=== PATIENT | female | born 1950 | race Caucasian/White ===

== ENCOUNTER 2023-08-26 14:05 | Outpatient (OUT) | payer MEDICARE, SELFPAY | END 2023-08-26 14:06 | disposition home or self-care (01) | PROVIDERS: PCP Internal Medicine; Visit Provider Surgery | DX: R19.7 Diarrhea, unspecified (principal); C18.9 Malignant neoplasm of colon, unspecified; C78.7 Secondary malignant neoplasm of liver and intrahepatic bile duct ==

== ENCOUNTER 2023-09-04 06:42 | Day surgery (SDC) | payer MEDICARE, OTHER, SELFPAY ==
--- OUTSIDE RECORDS SUMMARY | 2023-09-04 06:48 | XMS_ITS | CCD ---
Author Name Unknown Address [address] [place] [address] Organization [facility] Care Team Providers Care Concessions Manager Name Role Phone Deepthi, Nupur S Primary Care Physician Unavaila marilou Choudharyeder, Patrice Schwartz Unavailable Unavailable Zachary, Luciana Primary Care Physician Unavaila marilou Suarez, Patrice Schwartz Primary Care Physician Reuben lable Schworm, Nupur S Primary Care Physician Unavaila ble Schworm, [facility] S Primary Care Physician Unavaila ble Zachary, Luciana Primary Care Physician Unavaila marilou Suarez, Patrice Schwartz Primary Care Physician Reuben Suarez, Patrice Schwartz Primary Care Physician Reuben montenegro Schworm, [facility] S Primary Care Physician Unavaila ble Schworm, [facility] S Primary Care Physician Unavaila ble Schworm, [facility] S Primary Care Physician Unavaila ble Schworm, [facility] S Primary Care Physician Unavaila ble Suarez, Patrice Schwartz Primary Care Physician Patrice Orellana Unavailable Unavailable Schworm, [facility] S Primary Care Physician Unavaila ble Schworm, Nupur S Primary Care Physician Unavaila marilou Suarez, Patrice Schwartz Primary Care Physician Anatoliy Hdz Primary Care Provider [phone] ANATOLIY MCKEON Primary Care Unavailable EYAL SANCHEZ Admitting Unavailable EYAL SANCHEZ Attending Unavailable Patrice Suarez Primary Care Physician Bebeto Collins Primary Care Physician Bebeto Collins Primary Care Physician Reuben SEVILLA, DR CHINEDU Carolian Attending Katy SEVILLA, DR CHINEDU [place] [employer] Unavailnadeem SEVILLA, DR CHINEDU [place] Admitting Unavailnadeem MCKEON, DR ANATOLIY Sánchez Primary Care Unavailable Bebeto Miles Primary Care Physician Patrice Orellana Primary Care Physician Bebeto Collins Primary Care Physician Patrice Orellana Primary Care Physician Gloria Corrales Unavailable Patrice Suarez Primary Care Physician ALEXANDRE Tracey Attending Unavailable ANATOLIY MCKEON Referring Unavailable ANATOLIY MCKEON Primary Care Unavailable PAULETTE VOSS Referring Unavailable ANATOLIY MCKEON Primary Care Unavailable Allergies Allergy Classification Reported Allergen(s) Allergy Type Date of Onset Reaction(s) Facility HMG-CoA Reductase Inhibitors (statins) (1 source) Hmg-Coa Reductase Inhibitors (Statins) Drug Allergy myalgias, jaw tightens [facility] Comment on above: has taken simvastati n and atorvastatin Latex (1 source) Latex Substance Allergy [facility] (20 sources) Hmg-Coa Reductase Inhibitors (Statins); Translations: [[id number] REDUCTASE INHIBITORS] Allergy to substance (disorder) 3 myalgias, jaw tightens [facility] Comment on above: has taken simvastati n and atorvastatin (20 sources) Latex; Translations: [latex] Allergy to substance (disorder) 9 Rash [facility] (1 source) Desonide Drug Allergy [facility] Rep[facility] (2 sources) ADHESIVE TAPE-SILICONES; Translations: [ADHESIVE TAPE-SILICONES] Propensity to adverse reactions to drug (disorder) 7 [facility] Medications Current Medications Medication Drug Class(es) Dates Sig (Normalized) Sig (Original) b complex vitamins capsule (1 source) take 1 capsule by mouth at bedtime b complex vitamins capsule Take 1 capsule by mouth in the morning and at bedtime 0 Active Insulin Infusion Pump LAKHWINDER (1 source) Insulin Infusion Pump LAKHWINDER Inject into the skin Apidra insulin , dose varies 0 Active magnesium oxide 400 mg oral tablet (1 source) take 1 tablet by mouth twice daily magnesium oxide (MAG-OX) 400 MG tablet Take 400 mg by mouth 2 times daily 0 Active Multiple Vitamins-Minerals (THERAPEUTIC MULTIVITAMIN-MINERALS) tablet (1 source) take 1 tablet by mouth once daily Multiple Vitamins-Minerals (THERAPEUTIC MULTIVITAMIN-MINERALS ) tablet Take 1 tablet by mouth daily 0 Active NONFORMULARY (2 sources) take 2 tablets by mouth once daily NONFORMULARY Take 2 tablets by mouth daily Vision formula 50 0 Active take 1 tablet by mouth twice bianca ly NONFORMULARY Take 1 tablet by mouth 2 times daily Phromax 0 Active zinc gluconate 50 mg oral tablet (1 source) take 1 tablet by corrina th twice daily zinc gluconate 50 MG tablet Take 50 mg by mouth 2 times daily 0 Active Completed/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 Medications Medication Drug Class(es) Dates Sig (Normalized) Sig (Original) acetaminophen 325 mg / oxyCODONE hydrochloride 5 mg oral tablet (20 sources) Opioid Agonist End: 04-22-2015 take 1-2 tablets by mouth every four to six hours as needed Percocet 5-325 mg oral tablet 04/22/2015 take 1 - 2 tablets by oral route every 4-6 hours as needed APIDRA 100 UNITS/ML VIAL (12 sources) Start: 02-09-2021 End: 02-14-2021 APIDRA 100 UNITS/ML VIAL 02/09/2021 02/14/2021 60 UNITS DAILY SCOTTIE THE SKIN IN INSULIN PUMP AND NEEDED PER INJECTION. MAX DAILY 73 UNITS ascorbic acid 1000 mg oral tablet (20 sources) Vitamin C Start: 12-16-2013 End: 01-20-2015 take 2 tablets by mouth once daily Vitamin C 1,000 mg oral tablet 12/16/2013 01/20/2015 take 2 tablets by oral route daily take 1 tablet by mouth once ananth y Vitamin C ER 1,000 mg tablet,extended release take 1 tablet by oral route daily take 2 tablets by mouth twice da grace vitamin C (ASCORBIC ACID) 500 MG tablet Take 1,000 mg by mouth 2 times daily 0 Active ascorbic acid 200 mg / beta carotene 1000 unt / cuprous oxide 2 mg / dl-alpha tocopheryl acetate 60 unt / lutein 2 mg / sodium selenate 0.055 mg / zinc oxide 40 mg oral tablet (10 sources) Vitamin C End: 12-16-2013 take 2 tablets by mouth once daily I-Cyn 300 mcg-200 mg-27 mg-2 mg tablet take 2 tablets by oral route daily calcium & magnesium carbonates Oral (20 sources) End: 12-16-2013 calcium & magnesium carbonates Oral 12/16/2013 chlorhexidine gluconate 40 mg/ml medicated liquid soap (7 sources) Start: 09-11-2022 End: 09-25-2022 Hibiclens 4 % topical liquid 09/11/2022 09/25/2022 apply to affected area after shower on clean gauze for 5-10 minutes cleanse with saline and dry with gauze for 14 days cholecalciferol 0.025 mg oral capsule (20 sources) Vitamin D take 2 capsules by mouth once daily Vitamin D3 25 mcg (1,000 unit) capsule take 2 capsules by oral route daily End: 01-20-2015 take 2 capsules by mouth once daily Vitamin D3 2,000 unit oral capsule 01/20/2015 take 2 capsule by oral route daily take 1 tablet by corrina th twice daily Cholecalciferol (VITAMIN D3) 125 MCG (5000 UT) TABS Take 1 tablet by mouth 2 times daily 0 Active chromium picolinate 0.4 mg oral tablet (11 sources) take 2 tablets by mo uth once daily chromium picolinate 400 mcg tablet take 2 tablets by oral route daily cinnamon bark 500 mg oral capsule (12 sources) take 2 capsules by m outh once daily Cinnamon 500 mg capsule take 2 capsules by oral route daily take 2 capsules by mouth twice d aily Cinnamon 500 MG CAPS Take 1,000 mg by mouth 2 times daily 0 Active ubidecarenone 100 mg oral capsule (20 sources) Start: 01-30-2022 take 1 capsule by mouth twice daily CoQ-10 100 mg capsule 01/30/2022 take 1 capsule by oral route 2 times a day Start: 12-16-2013 End: 01-20-2015 take 1 capsule by mouth twice daily Co Q-10 200 mg oral capsule 12/16/2013 01/20/2015 take 1 capsule by oral route 2 times a day take 1 capsule by mo uth once daily CoQ-10 100 mg oral capsule take 1 capsule by oral route daily colesevelam hydrochloride 625 mg oral tablet (20 sources) Bile Acid Sequestrant End: 12-16-2013 take 2 tablets by mouth once daily WelChol 625 mg oral tablet 12/16/2013 take 2 tablets by oral route daily cyclopentolate hydrochloride 10 mg/ml ophthalmic solution (1 source) Start: 07-10-2022 End: 07-10-2022 cyclopentolate (CYCLOGYL) 1 % ophthalmic solution 1 drop ferrous sulfate 325 mg extended release oral capsule (2 sources) End: 11-11-2015 take 1 capsule by mouth once daily iron 325 mg (65 mg iron) oral capsule, extended release 11/11/2015 take 1 capsule by oral route daily gabapentin 100 mg oral capsule (3 sources) Anti-epileptic Agent Start: 02-27-2023 End: 08-26-2023 gabapentin 100 mg capsule 02/27/2023 05/02/2023 Take 1 capsules (100 mg) by oral route at night I-Cyn 300 mcg-200 mg-27 mg-2 mg tablet (4 sources) take 2 tablets by mouth once daily I-Cyn 300 mcg-200 mg-27 mg-2 mg tablet take 2 tablets by oral route daily ICaps 3,[id number] qhwc-jt-aa-unit oral tablet extended release (20 sources) End: 01-20-2015 take 2 tablets by mouth once daily ICaps 3,[id number] tfam-wu-jt-unit oral tablet extended release 01/20/2015 take 2 tablets by oral route daily 3 ml insulin glargine 100 unt/ml pen injector (20 sources) Insulin Analog Start: 05-02-2021 Lantus Solostar U-100 Insulin 100 unit/mL (3 mL) subcutaneous insulin pen 05/02/2021 INJECT 6 UNITS PRIME PEN WITH 2 UNITS. USE A BACKUP METHOD IF PUMP DOES NOT WORK. Start: 03-17-2019 Lantus Solosta r U-100 Insulin 100 unit/mL (3 mL) subcutaneous insulin pen 03/17/2019 INJECT 6 UNITS PRIME PEN WITH 2 UNITS. USE A BACKUP METHOD IF PUMP DOES NOT WORK. insulin glulisine, human 100 unt/ml injectable solution (20 sources) Insulin Analog Start: 09-25-2022 inject 100 [IU] by subcutaneous injection once daily as needed Apidra subcutaneous solution 100 unit/mL 09/25/2022 60 units daily using insulin pump daily and as needed, MAX DOSE 73 units DX:[id number] Start: 08-03-2021 inject 100 [IU] by s ubcutaneous injection once daily as needed Apidra subcutaneous solution 100 unit/mL 08/03/2021 60 units daily using insulin pump daily and as needed, MAX DOSE 73 units DX:[id number] 8 vials arrived from pt assistance. pt called Start: 04-28-2021 inject 60 [IU] by frausto bcutaneous injection once daily as needed Apidra U-100 Insulin 100 unit/mL subcutaneous solution 04/28/2021 60 units daily using insulin pump daily and as needed, MAX DOSE 73 units DX:[id number] Start: 10-26-2020 inject 60 [IU] by frausto bcutaneous injection once daily as needed, then inject 73 [IU] by subcutaneous injection once as needed Apidra U-100 Insulin 100 unit/mL subcutaneous solution 10/26/2020 60 UNITS DAILY SCOTTIE THE SKIN IN INSULIN PUMP AND NEEDED PER INJECTION. MAX DAILY 73 UNITS Pt assistance med arrived. Pt notified Start: 10-20-2020 inject 60 [IU] by frausto bcutaneous injection once daily as needed, then inject 73 [IU] by subcutaneous injection once as needed Apidra U-100 Insulin 100 unit/mL subcutaneous solution 10/20/2020 60 UNITS DAILY SCOTTIE THE SKIN IN INSULIN PUMP AND NEEDED PER INJECTION. MAX DAILY 73 UNITS Start: 08-04-2020 inject 60 [IU] by frausto bcutaneous injection once daily as needed, then inject 73 [IU] by subcutaneous injection once as needed Apidra U-100 Insulin 100 unit/mL subcutaneous solution 08/04/2020 60 UNITS DAILY SCOTTIE THE SKIN IN INSULIN PUMP AND NEEDED PER INJECTION. MAX DAILY 73 UNITS #4vials received from pt assistance. pt called Start: 05-11-2020 inject 60 [IU] by frausto bcutaneous injection once daily as needed, then inject 73 [IU] by subcutaneous injection once as needed Apidra U-100 Insulin 100 unit/mL subcutaneous solution 05/11/2020 60 UNITS DAILY SCOTTIE THE SKIN IN INSULIN PUMP AND NEEDED PER INJECTION. MAX DAILY 73 UNITS #8vial from pt assistance. LMOM Start: 11-19-2019 inject 60 [IU] by frausto bcutaneous injection once daily as needed, then inject 73 [IU] by subcutaneous injection once as needed Apidra U-100 Insulin 100 unit/mL subcutaneous solution 11/19/2019 60 UNITS DAILY SCOTTIE THE SKIN IN INSULIN PUMP AND NEEDED PER INJECTION. MAX DAILY 73 UNITS #4vials arrived from pt assistance. pt called Start: 09-10-2019 inject 60 [IU] by frausto bcutaneous injection once daily as needed, then inject 73 [IU] by subcutaneous injection once as needed Apidra U-100 Insulin 100 unit/mL subcutaneous solution 09/10/2019 60 UNITS DAILY SCOTTIE THE SKIN IN INSULIN PUMP AND NEEDED PER INJECTION. MAX DAILY 73 UNITS #4 vials arrived from pt assistance. pt called Start: 06-04-2019 inject 60 [IU] by frausto bcutaneous injection once daily as needed, then inject 73 [IU] by subcutaneous injection once as needed Apidra U-100 Insulin 100 unit/mL subcutaneous solution 06/04/2019 60 UNITS DAILY SCOTTIE THE SKIN IN INSULIN PUMP AND NEEDED PER INJECTION. MAX DAILY 73 UNITS #8 vials from pt assistance received. Patient called Start: 01-26-2019 inject 60 [IU] by frausto bcutaneous injection once daily as needed, then inject 73 [IU] by subcutaneous injection once as needed Apidra U-100 Insulin 100 unit/mL subcutaneous solution 01/26/2019 60 UNITS DAILY SCOTTIE THE SKIN IN INSULIN PUMP AND NEEDED PER INJECTION. MAX DAILY 73 UNITS Start: 05-29-2017 End: 08-29-2018 inject 60 [IU] by subcutaneous injection once daily as needed, then inject 13 [IU] by subcutaneous injection once as needed, then inject 73 [IU] by subcutaneous injection once daily as needed Apidra 100 unit/mL subcutaneous solution 05/29/2017 08/29/2018 USING 60 UNITS DAILY UNDER THE SKIN IN INSULIN PUMP AND NEEDED PER INJECT. MAX BOLUS 13 UNITS. MAX 73 UNITS PER DAY duplicate entry Apidra 100 UNIT/ ML as directed Injection Insulin pump Active Iron (20 sources) End: 11-11-2015 take 1 capsule by mouth once daily iron 325 mg (65 mg iron) oral capsule, extended release 11/11/2015 take 1 capsule by oral route daily levothyroxine sodium 0.1 mg oral tablet (20 sources) l-Thyroxi ne Start: 08-02-2022 End: 07-04-2023 levothyroxine 100 mcg tablet 05/02/2023 TAKE 1 TABLET (100 MCG) BY ORAL ROUTE ONCE DAILY EXCEPT ON SUN TAKE 1/2 TAB ANAI -1 MYLAN BRAND ONLY Start: 10-31-2021 End: 07-28-2022 take 1 tablet by mouth once daily levothyroxine oral tablet 100 mcg 10/31/2021 07/28/2022 take 1 tablet by oral route QD Start: 08-02-2021 take 1 tablet by corrina th once daily levothyroxine oral tablet 100 mcg 08/02/2021 take 1 tablet (100 mcg) by oral route once daily ANAI Avila Start: 06-17-2018 End: 08-05-2021 levothyroxine 100 mcg oral t ablet 08/10/2020 05/02/2021 TAKE 1 TABLET BY MOUTH EVERY DAY EXCEPT 2 TABLETS ON SATURDAY Start: 05-16-2017 End: 05-29-2017 take 1 tablet by mouth once daily Synthroid 112 mcg oral tablet 05/16/2017 05/29/2017 take 1 tab per day on empty stomach w/water only wait 1/2 hr before eating drinking or taking other meds ANAI Start: 03-21-2013 End: 04-05-2014 take 1 tablet by mouth once daily in the morning levothyroxine 112 mcg oral tablet 12/16/2013 04/05/2014 Take 1 tab by mouth daily in am with water only on empty stomach, no other foods, drinks, or meds for 1/2hr after. ANAI AVILA MONTSE take 1 tablet by corrina th in the morning, then take 0.5 tablet by mouth once daily Levothyroxine Sodium 100 MCG 1 tablet in the morning on an empty stomach and 0.5 tablet Saturday Orally Once a day Active losartan potassium 50 mg oral tablet (20 sources) Angiotensin 2 Receptor Zohreh End: 12-16-2013 take 1 tablet by mouth once daily losartan 50 mg oral tablet 12/16/2013 take 1 tablet (50 mg) by oral route once daily lovastatin 20 mg oral tablet (20 sources) HMG-CoA Reductase Inhibitor Start: 03-12-2013 End: 12-16-2013 take 2 tablets by mouth once daily in the evening lovastatin 20 mg oral tablet 03/12/2013 12/16/2013 TAKE TWO TABLETS BY MOUTH EVERY EVENING Magnesium (20 sources) magnesium 400 mg Take 2 tablets daily End: 01-20-2015 take 2 capsules by mouth once daily Magnesium (oxide/AA chelate) 300 mg oral capsule 01/20/2015 take 2 capsule by oral route daily multivitamin oral tablet (20 sources) take 1 tablet by mouth once daily multivitamin oral tablet take 1 tablet by oral route daily Ocuvite with Lutein 1,000 unit-200 mg-60 unit-2 mg oral tablet (20 sources) End: 12-17-19 14 Ocuvite with Lutein 1,000 unit-200 mg-60 unit-2 mg oral tablet 12/16/2013 ofloxacin 3 mg/ml ophthalmic solution (1 source) Quinolone Antimicrobial Start: 07-10-20 End: 07-10-20 ofloxacin (OCUFLOX) 0.3 % solution 1 drop ondansetron 4 mg oral tablet (20 sources) Serotonin-3 Receptor Antagonist take 1 tablet by mouth every eight hours as needed Zofran (as hydrochloride) 4 mg oral tablet take one tablet every 8 hours as needed phenylephrine hydrochloride 100 mg/ml ophthalmic solution (1 source) alpha-1 Adrenergic Agonist Start: 07-10-20 End: 07-10-20 phenylephrine (MITALI-SYNEPHRINE) 10 % ophthalmic solution 1 drop pitavastatin calcium 2 mg oral tablet (20 sources) HMG-CoA Reductase Inhibitor Start: 06-16-20 End: 01-21-20 15 take 1 tablet by mouth every week Livalo 2 mg oral tablet 06/16/2014 01/20/2015 take one tablet one a week PreserVision AREDS-2 [phone] mk-nonx-ng-mg oral capsule (20 sources) End: 05-22-20 19 take 1 capsule by mouth twice daily PreserVision AREDS-2 [phone] cg-xvnn-ls-mg oral capsule 05/22/2019 take 1 capsule by oral route 2 times a day take 1 capsule by mouth twice da grace PreserVision AREDS-2 [phone] ak-znhh-sw-mg oral capsule take 1 capsule by oral route 2 times a day prochlorperazine 10 mg oral tablet (20 sources) Phenothiazine Start: 11-11-2015 take 1 tablet by mouth four times daily as needed Compazine 10 mg oral tablet 11/11/2015 take 1 tablet (10 mg) by oral route 4 times per day as needed sulfamethoxazole 800 mg / trimethoprim 160 mg oral tablet (20 sources) Dihydrofolate Reductase Inhibitor Antibacterial, Sulfonamide Antimicrobial Start: 11-17-2012 take 1 tablet by mouth twice daily Bactrim DS 800-160 mg oral tablet 11/17/2012 take 1 tablet by oral route 2 times per day End: 04-22-2015 take 2 tablets by mouth every eight hours sulfamethoxazole-trimethoprim 800-160 mg oral tablet 04/22/2015 take 2 tablets by oral route every 8 hours vitamin B complex tablet (9 sources) take 2 tablets by mouth once daily vitamin B complex tablet take 2 tablets by oral route daily vitamin b6 100 mg oral tablet (20 sources) Start: 12-16-2013 End: 01-20-2015 take 1 tablet by mouth once daily Vitamin B-6 100 mg oral tablet 12/16/2013 01/20/2015 take 1 tablet by oral route daily vitamin e 268 mg oral capsule (20 sources) End: 01-20-2015 take 1 capsule by mouth once daily vitamin E 400 unit oral capsule 01/20/2015 take 1 capsule by oral route daily End: 01-20-2015 take 1 capsule by mouth once daily vitamin E 400 unit oral capsule 01/20/2015 take 1 capsule by oral route daily End: 01-20-2015 take 1 capsule by mouth once daily vitamin E 400 unit oral capsule 01/20/2015 take 1 capsule by oral route daily Vitamins B Complex 500 mg-400 mcg- 18 mg iron oral tablet (20 sources) Start: 12-16-2013 End: 01-20-2015 take 1 tablet by mouth once daily Vitamins B Complex 500 mg-400 mcg- 18 mg iron oral tablet 12/16/2013 01/20/2015 take 1 tablet by oral route daily zinc 50 mg tablet (11 sources) take 1 tablet by mouth once daily zinc 50 mg tablet take 1 tablet by oral route daily Problems Active Problems Problem Classification Problem Date Documented Da te Episodic/Chronic Acquired foot deformities (10 sources) Other hammer toe(s) (acquired), right foot Onset: 09-10-2022 Chronic Cancer of colon (20 sources) Malignant neoplasm of colon, unspecified site; Translations: [Malignant tumor of colon] Onset: 01-20-2015 Chronic Cancer of colon (3 sources) History of malignant neoplasm of colon; Translations: [Personal history of other malignant neoplasm of large intestine] Episodic Cancer of liver and intrahepatic bile duct (20 sources) Malignant neoplasm of liver, not specified as primary or secondary; Translations: [Malignant neoplasm of liver, not specified as primary or secondary] Chronic Diabetes mellitus with complications (20 sources) Diabetes with other specified manifestations, type I [juvenile type], not stated as uncontrolled; Translations: [Diabetes with ophthalmic manifestations, type I [juvenile type], not stated as uncontrolled] Onset: 07-15-1966 Chronic Diabetes mellitus without complication (20 sources) Diabetes mellitus without mention of complication, type I [juvenile type], not stated as uncontrolled; Translations: [Type 1 diabetes mellitus] Onset: 07-15-1966 Chronic Disorders of lipid metabolism (20 sources) Other and unspecified hyperlipidemia; Translations: [Pure hypercholesterolemi a] Onset: 03-21-2013 Chronic Essential hypertension (20 sources) Benign essential hypertension; Translations: [Benign essential hypertension] Onset: 03-21-2013 Chronic Heart valve disorders (1 source) Cardiac murmur, unspecified Episodic Osteoarthritis (7 sources) Unspecified osteoarthritis, unspecified site Onset: 09-10-2022 Chronic Other ear and sense organ disorders (2 sources) Hearing loss of left ear; Translations: [Unspecified hearing loss, left ear] Chronic Other ear and sense organ disorders (1 source) Unspecified hearing loss, left ear Chronic Other ear and sense organ disorders (2 sources) Impacted cerumen, left ear Episodic Other ear and sense organ disorders (1 source) Impacted cerumen, right ear Episodic Other endocrine disorders (20 sources) Hypoglycemic coma Onset: 03-17-2014 Chronic Other gastrointestinal disorders (2 sources) Diarrhea, unspecified; Translations: [Diarrhea, unspecified] Onset: 08-15-2023 Episodic Other gastrointestinal disorders (1 source) Diarrhea Onset: 08-15-2023 Episodic Other nutritional; endocrine; and metabolic disorders (20 sources) Obesity, unspecified Onset: 12-16-2013 Chronic Retinal detachments; defects; vascular occlusion; and retinopathy (4 sources) Epiretinal membrane of right eye; Translations: [Puckering of macula, right eye] Onset: 07-10-2022 Chronic Secondary malignancies (1 source) Secondary malignant neoplasm of liver and intrahepatic bile duct; Translations: [Secondary malignant neoplasm of liver and intrahepatic bile duct] Onset: 10-27-2021 Chronic Thyroid disorders (20 sources) Unspecified acquired hypothyroidism; Translations: [Hypothyroidism] Onset: 03-19-2013 Chronic Past or Other Problems Problem Classification Problem Date Documented Date Episodic/Chronic Acquired foot deformities (11 sources) Bunion of right foot Onset: 09-05-2022 Episodic Acquired foot deformities (3 sources) Bunion of left foot Onset: 02-25-2023 Episodic Diabetes mellitus with complications (20 sources) 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, right eye; Translations: [Type 1 diabetes mellitus with mild nonproliferative diabetic retinopathy with macular edema, right eye] Onset: 11-11-2015 Malaise and fatigue (20 sources) Other malaise and fatigue; Translations: [Other fatigue] Onset: 02-12-2019 Episodic Mycoses (14 sources) Tinea unguium Onset: 09-26-2022 Episodic Open wounds of extremities (6 sources) Unspecified open wound of unspecified toe(s) with damage to nail, initial encounter Onset: 09-26-2022 Episodic Other connective tissue disease (20 sources) Cramp of limb Onset: 09-22-2014 Episodic Other connective tissue disease (20 sources) Pain in unspecified foot Onset: 04-14-2020 Episodic Other connective tissue disease (20 sources) Pain in right foot Onset: 04-14-2020 Episodic Other connective tissue disease (6 sources) Pain in left foot Onset: 09-26-2022 Episodic Other connective tissue disease (3 sources) Neuralgia and neuritis, unspecified Onset: 02-25-2023 Episodic Other skin disorders (8 sources) Unspecified disorder of skin and subcutaneous tissue Onset: 11-16-2016 Episodic Other skin disorders (8 sources) Actinic keratosis Onset: 11-16-2016 Episodic Other skin disorders (20 sources) Actinic keratosis Onset: 11-16-2016 Episodic Other skin disorders (20 sources) Disorder of the skin and subcutaneous tissue, unspecified Onset: 11-16-2016 Episodic Other skin disorders (7 sources) Ingrowing nail Onset: 09-10-2022 Episodic Other skin disorders (8 sources) Corns and callosities Onset: 11-26-2022 Episodic Residual codes; unclassified (10 sources) Other specified health status Onset: 05-02-2022 Episodic Skin and subcutaneous tissue infections (20 sources) Local infection of the skin and subcutaneous tissue, unspecified; Translations: [Cutaneous abscess of unspecified foot] Onset: 09-10-2022 Episodic Unclassified (1 source) [id number] [email or web address] Onset: 08-05-2015 Unclassified (1 source) [id number] [id number] [email or web address] Onset: 08-05-2015 Unclassified (1 source) ref_[id number]_sgpnXoa ness_name_36 Onset: 01-20-2015 Unclassified (1 source) ref_[id number]_zozeDft ness_name_35 Onset: 01-20-2015 Unclassified (1 source) ref_[id number]_fwcjFxn ness_name_35 Onset: 01-20-2015 Unclassified (1 source) ref_[id number]_xofjIap ness_name_36 Onset: 01-20-2015 Unclassified (1 source) ref_[id number]_kecsPib ness_name_44 Onset: 08-05-2015 Unclassified (1 source) ref_[id number]_zeodAkk ness_name_46 Onset: 08-05-2015 Unclassified (1 source) ref_[id number]_pastIll ness_name_36 Onset: 01-20-2015 Unclassified (1 source) ref_[id number]_pastIll ness_name_46 Onset: 08-05-2015 Unclassified (1 source) ref_[id number]_pastIll ness_name_44 Onset: 08-05-2015 Unclassified (1 source) ref_[id number]_pastIll ness_name_35 Onset: 01-20-2015 Unclassified (1 source) ref_[id number]_pastIll ness_name_35 Onset: 01-20-2015 Unclassified (1 source) ref_[id number]_pastIll ness_name_36 Onset: 01-20-2015 Unclassified (1 source) ref_[id number]_pastIll ness_name_44 Onset: 08-05-2015 Unclassified (1 source) ref_[id number]_pastIll ness_name_46 Onset: 08-05-2015 Unclassified (1 source) ref_[id number]_pastIll ness_name_36 Onset: 01-20-2015 Unclassified (1 source) ref_[id number]_pastIll ness_name_35 Onset: 01-20-2015 Unclassified (1 source) ref_[id number]_pastIll ness_name_46 Onset: 08-05-2015 Unclassified (1 source) ref_[id number]_pastIll ness_name_44 Onset: 08-05-2015 Unclassified (1 source) ref_[id number]_pastIll ness_name_35 Onset: 01-20-2015 Unclassified (1 source) ref_[id number]_pastIll ness_name_36 Onset: 01-20-2015 Unclassified (1 source) ref_[id number]_pastIll ness_name_44 Onset: 08-05-2015 Unclassified (1 source) ref_[id number]_pastIll ness_name_46 Onset: 08-05-2015 Unclassified (1 source) ref_[id number]_pastIll ness_name_35 Onset: 01-20-2015 Unclassified (1 source) ref_[id number]_pastIll ness_name_36 Onset: 01-20-2015 Unclassified (1 source) ref_[id number]_pastIll ness_name_44 Onset: 08-05-2015 Unclassified (1 source) ref_[id number]_pastIll ness_name_46 Onset: 08-05-2015 Unclassified (1 source) ref_[id number]_pastIll ness_name_35 Onset: 01-20-2015 Unclassified (1 source) ref_[id number]_pastIll ness_name_36 Onset: 01-20-2015 Unclassified (1 source) ref_[id number]_pastIll ness_name_44 Onset: 08-05-2015 Unclassified (1 source) ref_[id number]_pastIll ness_name_46 Onset: 08-05-2015 Unclassified (1 source) ref_[id number]_pastIll ness_name_35 Onset: 01-20-2015 Unclassified (1 source) ref_[id number]_pastIll ness_name_36 Onset: 01-20-2015 Unclassified (1 source) ref_[id number]_pastIll ness_name_44 Onset: 08-05-2015 Unclassified (1 source) ref_[id number]_pastIll ness_name_46 Onset: 08-05-2015 Unclassified (1 source) ref_[id number]_szjoJcl ness_name_35 Onset: 01-20-2015 Unclassified (1 source) ref_[id number]_lcdyKcm ness_name_36 Onset: 01-20-2015 Unclassified (1 source) ref_[id number]_wqkiTej ness_name_44 Onset: 08-05-2015 Unclassified (1 source) ref_[id number]_njneVwb ness_name_46 Onset: 08-05-2015 Unclassified (1 source) ref_[id number]_pastIll ness_name_35 Onset: 01-20-2015 Unclassified (1 source) ref_[id number]_pastIll ness_name_36 Onset: 01-20-2015 Unclassified (1 source) ref_[id number]_pastIll ness_name_44 Onset: 08-05-2015 Unclassified (1 source) ref_[id number]_pastIll ness_name_46 Onset: 08-05-2015 Unclassified (1 source) ref_[id number]_tjglHcs ness_name_35 Onset: 01-20-2015 Unclassified (1 source) ref_[id number] [id number]_vhkpKcc ness_name_36 Onset: 01-20-2015 Unclassified (1 source) ref_[id number] [id number]_bzwqXbo ness_name_44 Onset: 08-05-2015 Unclassified (1 source) ref_bcaebfa804fa4f65a7 [id number]_wavsTic ness_name_46 Onset: 08-05-2015 Unclassified (1 source) ref_[id number]_pastIll ness_name_35 Onset: 01-20-2015 Unclassified (1 source) ref_[id number]_pastIll ness_name_36 Onset: 01-20-2015 Unclassified (1 source) ref_[id number]_pastIll ness_name_44 Onset: 08-05-2015 Unclassified (1 source) ref_[id number]_pastIll ness_name_46 Onset: 08-05-2015 Unclassified (1 source) ref_[id number]_ionkBya ness_name_35 Onset: 01-20-2015 Unclassified (1 source) ref_[id number]_oovcIik ness_name_36 Onset: 01-20-2015 Unclassified (1 source) ref_[id number]_zlxjPsq ness_name_44 Onset: 08-05-2015 Unclassified (1 source) ref_[id number]_javyGez ness_name_46 Onset: 08-05-2015 Unclassified (1 source) ref_[id number]_ykzpOoh ness_name_35 Onset: 01-20-2015 Unclassified (1 source) ref_[id number]_hqvgLnk ness_name_36 Onset: 01-20-2015 Unclassified (1 source) ref_[id number]_nixaVue ness_name_44 Onset: 08-05-2015 Unclassified (1 source) ref_[id number]_kxuxOgv ness_name_46 Onset: 08-05-2015 Unclassified (1 source) ref_[id number]_pastIll ness_name_35 Onset: 01-20-2015 Unclassified (1 source) ref_[id number]_pastIll ness_name_36 Onset: 01-20-2015 Unclassified (1 source) ref_[id number]_pastIll ness_name_44 Onset: 08-05-2015 Unclassified (1 source) ref_[id number]_pastIll ness_name_46 Onset: 08-05-2015 Unclassified (1 source) ref_[id number]_pastIll ness_name_35 Onset: 01-20-2015 Unclassified (1 source) ref_[id number]_pastIll ness_name_36 Onset: 01-20-2015 Unclassified (1 source) ref_[id number]_pastIll ness_name_44 Onset: 08-05-2015 Unclassified (1 source) ref_[id number]_pastIll ness_name_46 Onset: 08-05-2015 Unclassified (1 source) ref_[id number]_jvqnJcf ness_name_35 Onset: 01-20-2015 Unclassified (1 source) ref_[id number]_jqhrKrq ness_name_36 Onset: 01-20-2015 Unclassified (1 source) ref_[id number]_drshVkt ness_name_44 Onset: 08-05-2015 Unclassified (1 source) ref_[id number]_lbqlPtd ness_name_46 Onset: 08-05-2015 Unclassified (1 source) ref_[id number]_pastIll ness_name_35 Onset: 01-20-2015 Unclassified (1 source) ref_[id number]_pastIll ness_name_36 Onset: 01-20-2015 Unclassified (1 source) ref_[id number]_pastIll ness_name_44 Onset: 08-05-2015 Unclassified (1 source) ref_[id number]_pastIll ness_name_46 Onset: 08-05-2015 Unclassified (1 source) ref_[id number]_pastIll ness_name_35 Onset: 01-20-2015 Unclassified (1 source) ref_[id number]_pastIll ness_name_36 Onset: 01-20-2015 Unclassified (1 source) ref_[id number]_pastIll ness_name_44 Onset: 08-05-2015 Unclassified (1 source) ref_[id number]_pastIll ness_name_46 Onset: 08-05-2015 Results Test Name Value Interpretation Reference Range Facility C DIFFICILE BY PCRon 024 C. difficile toxin genes WENDY+probe Ql (Stl) TOXIGENIC C DIFF Negative (qualifier value) 027 NAP1 Negative (qualifier value) Normal PRNEG [facility] Comment on above: Performed By: #### 8 2195-9 #### [facility] ([id number]) [address] [place] [address] [facility] ([id number]) [address] [place] [address] #### [id number] #### [facility] ([id number]) [address] [place] [address] GI PANELon 08-16-2023 Gastrointestinal pathogens DNA and RNA panel WENDY+non-probe (Stl) SPECIMEN SOURCE STOOL CAMPYLOBACTER Not detected (qualifier value) PLESIOMONAS Not detected (qualifier value) SALMONELLA Not detected (qualifier value) VIBRIO Not detected (qualifier value) VIBRIO CHOLERAE Not detected (qualifier value) Y. ENTEROCOLITICA Not detected (qualifier value) AGGREGATIVE E COLI Not detected (qualifier value) PATHOGENIC E COLI Not detected (qualifier value) TOXIGENIC E COLI Not detected (qualifier value) SHIGA TOXIN E COLI Not detected (qualifier value) SHIGELLA-E COLI Not detected (qualifier value) CRYPTOSPORIDIUM Not detected (qualifier value) CYCLOSPORA Not detected (qualifier value) E HISTOLYTICA Not detected (qualifier value) GIARDIA LAMBLIA Not detected (qualifier value) ADENOVIRUS Not detected (qualifier value) ASTROVIRUS Not detected (qualifier value) NOROVIRUS Not detected (qualifier value) ROTAVIRUS A Not detected (qualifier value) SAPOVIRUS Not detected (qualifier value) Normal NDET [facility] Comment on above: Performed By: #### 8 2195-9 #### [facility] ([id number]) [address] [facility] [place] [address] [facility] ([id number]) [address] [facility] [address] [place] [address] #### [id number] #### [facility] ([id number]) [address] [facility] [address] [place] [address] No Panel Informationon 01-29 Tobacco smoking status Non-Smoker Invalid Interpretation Code [facility] POINT OF CARE GLUCOSEon 050 Glucose [Mass/Vol] 189 mg/dL Critically high 74-106 [facility] Comment on above: Performed By: #### P OCGLUC #### [facility] [address] [address] [address] Jenni Watson No Panel Informationon 10-31 Body mass index (BMI) [Percentile] Per age and sex 0.1 {percentile} Invalid Interpretation Code [facility] Bnirdi-smw-wtgebt Per age and sex 0.1 {percentile} Invalid Interpretation Code [facility] No Panel Informationon 08-02 Body mass index (BMI) [Percentile] Per age and sex 0.1 {percentile} Invalid Interpretation Code [facility] Bvnehf-qhd-cqjxyg Per age and sex 0.1 {percentile} Invalid Interpretation Code [facility] CALCIUM, IONIC (POC)on 07-10 POC Ionized Calcium 1.18 mmol/L 1.15 - 1 .33 mmol/L [email or web address] Creatinine W/GFR Point of Ca reon 07-10-2022 Creatinine [Mass/Vol] 0.55 mg/dL 0.51 - 1.19 mg/dL [facility] eGFR, POC mL/min/1.73m2 [facility] Comment on above: Effective Apr 16, 2022 These results are not intended for use in patients <18 years of age. eGFR results are calculated without a race factor using the 2020 CKD-EPI equation. Careful clinical correlation is recommended, particularly when comparing to results calculated using previous equations. The CKD-EPI equation is less accurate in patients with extremes of muscle mass, extra-renal metabolism of creatine, excessive creatine ingestion, or following therapy that affects renal tubular secretion. ELECTROLYTES PLUSon 07-10-20 Anion gap [Moles/Vol] 12 mmol/L 7 - 16 mmol/L [email or web address] Chloride [Moles/Vol] 104 mmol/L 98 - 10 7 mmol/L [email or web address] CO2 [Moles/Vol] 26 mmol/L 22 - 30 mmol/L [facility] [employer] Potassium [Moles/Vol] 4.2 mmol/L 3.5 - 4.5 mmol/L [facility] [employer] Sodium [Moles/Vol] 141 mmol/L 138 - 146 mmol/L [facility] [employer] Hemoglobin and hematocrit, b loodon 07-10-2022 Hematocrit (Bld) [Volume fraction] 39 % 36 - 46 % [email or web address] Hemoglobin (Bld) [Mass/Vol] 13.3 g/dL 12.0 - 16.0 g/dL [email or web address] No Panel Informationon 07-10 [facility] [employer] POCT Glucoseon 07-10-2022 Glucose [Mass/Vol] 141 mg/dL High 74 - 100 mg/dL [facility] Interpretation and review of laboratory results Abnormal [facility] [employer] POCT urea (BUN)on 07-10-2022 Urea nitrogen [Mass/Vol] 16 mg/dL mg/dL [facility] Laboratory - Chemistry and C hemistry - challengeon 05-02-2022 Albumin (U) [Mass/Vol] 18.9 Invalid Interpretation Code <17.0 [facility] Albumin/Creatinine DL <= 20 mg/L (U) [Mass ratio] 11.5 mg/g Invalid Interpretation Code 0.0-30.0 [facility] Anion gap [Moles/Vol] 13 mmol/L Invalid Interpretation Code 10-20 [facility] Calcium [Mass/Vol] 9.30 mg/dL Invalid Interpretation Code 8.5-10.8 [facility] Chloride [Moles/Vol] 103.0 mmol/L Invalid Interpretation Code 100-112 [facility] Cholesterol [Mass/Vol] 250.0 mg/dL Invalid Interpretation Code 0-200 [facility] Cholesterol in HDL [Mass/Vol] 94.0 mg/dL Invalid Interpretation Code 50-100 [facility] Cholesterol in LDL [Mass/Vol] 144.0 mg/dL Invalid Interpretation Code 0-130 [facility] Cholesterol in VLDL [Mass/Vol] 12.0 mg/dL Invalid Interpretation Code 0-39 [facility] Cholesterol.total/Cho lesterol in HDL [Mass ratio] 3 {ratio} Invalid Interpretation Code [facility] CO2 [Moles/Vol] 28.0 mmol/L Invalid Interpretation Code 23-30 [facility] Creatinine (U) [Mass/Vol] 163.90 mg/dL Invalid Interpretation Code Not Estab. mg/dL [facility] Creatinine [Mass/Vol] 0.80 mg/dL Invalid Interpretation Code 0.5-1.5 [facility] GFR/1.73 sq M.predicted among non-blacks MDRD (S/P/Bld) [Vol rate/Area] 70 mL/min/{1.73_m2} Invalid Interpretation Code [facility] Glucose [Mass/Vol] 142.0 mg/dL Invalid Interpretation Code 80-117 [facility] Potassium [Moles/Vol] 4.40 mmol/L Invalid Interpretation Code 3.5-5.3 [facility] Sodium [Moles/Vol] 140.0 mmol/L Invalid Interpretation Code 135-148 [facility] Triglyceride [Mass/Vol] 61.0 mg/dL Invalid Interpretation Code 30-150 [facility] Urea nitrogen [Mass/Vol] 21.0 mg/dL Invalid Interpretation Code 7-25 [facility] Urea nitrogen/Creatinine [Mass ratio] 26 mg/mg Invalid Interpretation Code 6-20 [facility] Laboratory - Hematology and Cell countson 05-02-2022 HbA1c (Bld) [Mass fraction] 5.70 % Invalid Interpretation Code 4.3-6.3 [facility] - Urinalysison Glucose Test strip (U) [Mass/Vol] Negative Invalid Interpretation Code negative [facility] Protein (U) [Mass/Vol] trace Invalid Interpretation Code negative [facility] No Panel Informationon 05-02 117.0 mg/dL Invalid Interpretation Code [facility] 143 Invalid Interpretation Code 70-117 [facility] Laboratory - Chemistry and C hemistry - challengeon 07-19-2022 Anion gap [Moles/Vol] 10 mmol/L Invalid Interpretation Code 10-20 [facility] Calcium [Mass/Vol] 9.20 mg/dL Invalid Interpretation Code 8.5-10.8 [facility] Chloride [Moles/Vol] 105.0 mmol/L Invalid Interpretation Code 100-112 [facility] Cholesterol [Mass/Vol] 266.0 mg/dL Invalid Interpretation Code 0-200 [facility] Cholesterol in HDL [Mass/Vol] 86.0 mg/dL Invalid Interpretation Code 50-100 [facility] Cholesterol in LDL [Mass/Vol] 157.0 mg/dL Invalid Interpretation Code 0-130 [facility] Cholesterol in VLDL [Mass/Vol] 23.0 mg/dL Invalid Interpretation Code 0-39 [facility] Cholesterol.total/Cho lesterol in HDL [Mass ratio] 3 {ratio} Invalid Interpretation Code [facility] CO2 [Moles/Vol] 29.0 mmol/L Invalid Interpretation Code 23-30 [facility] Creatinine [Mass/Vol] 0.80 mg/dL Invalid Interpretation Code 0.5-1.5 [facility] GFR/1.73 sq M.predicted among non-blacks MDRD (S/P/Bld) [Vol rate/Area] 70 mL/min/{1.73_m2} Invalid Interpretation Code [facility] Glucose [Mass/Vol] 154.0 mg/dL Invalid Interpretation Code 80-117 [facility] Potassium [Moles/Vol] 4.40 mmol/L Invalid Interpretation Code 3.5-5.3 [facility] Sodium [Moles/Vol] 140.0 mmol/L Invalid Interpretation Code 135-148 [facility] Triglyceride [Mass/Vol] 113.0 mg/dL Invalid Interpretation Code 30-150 [facility] Urea nitrogen [Mass/Vol] 18.0 mg/dL Invalid Interpretation Code 7-25 [facility] Urea nitrogen/Creatinine [Mass ratio] 23 mg/mg Invalid Interpretation Code 6-20 [facility] Laboratory - Hematology and Cell countson 01-30-2022 HbA1c (Bld) [Mass fraction] 5.40 % Invalid Interpretation Code 4.3-6.3 [facility] No Panel Informationon 01-30 108.0 mg/dL Invalid Interpretation Code [facility] 174 Invalid Interpretation Code 70-117 [facility] Laboratory - Chemistry and C hemistry - challengeon 10-31-2021 Albumin (U) [Mass/Vol] 22.0 Invalid Interpretation Code <17.0 [facility] Albumin/Creatinine DL <= 20 mg/L (U) [Mass ratio] 9.8 mg/g Invalid Interpretation Code 0.0-30.0 [facility] Anion gap [Moles/Vol] 14 mmol/L Invalid Interpretation Code 10-20 [facility] Bilirubin Ql (U) Negative Invalid Interpretation Code Negative [facility] Calcium [Mass/Vol] 9.30 mg/dL Invalid Interpretation Code 8.5-10.8 [facility] Chloride [Moles/Vol] 103.0 mmol/L Invalid Interpretation Code 100-112 [facility] CO2 [Moles/Vol] 28.0 mmol/L Invalid Interpretation Code 23-30 [place] [facility] Creatinine (U) [Mass/Vol] 224.0 mg/dL Invalid Interpretation Code Not Estab. mg/dL [facility] Creatinine [Mass/Vol] 0.80 mg/dL Invalid Interpretation Code 0.5-1.5 [facility] GFR/1.73 sq M.predicted among non-blacks MDRD (S/P/Bld) [Vol rate/Area] 70 mL/min/{1.73_m2} Invalid Interpretation Code [facility] [employer] [facility] Glucose [Mass/Vol] 159.0 mg/dL Invalid Interpretation Code 80-117 [facility] Ketones Ql (U) 1+ Invalid Interpretation Code Negative [facility] [employer] [facility] pH (U) 6 [pH] Invalid Interpretation Code 5.0-9.0 [facility] [employer] [facility] Potassium [Moles/Vol] 4.40 mmol/L Invalid Interpretation Code 3.5-5.3 [facility] Sodium [Moles/Vol] 141.0 mmol/L Invalid Interpretation Code 135-148 [facility] [employer] [facility] Specific gravity (U) [Rel density] 1.020 Invalid Interpretation Code 1.003-1.030 [facility] [employer] [facility] T4 [Mass/Vol] 7.37 ug/dL Invalid Interpretation Code 5.00-12.00 [facility] [employer] [facility] TSH Qn 0.92 m[IU]/L Invalid Interpretation Code 0.50-4.00 [facility] [employer] [facility] Urea nitrogen [Mass/Vol] 19.0 mg/dL Invalid Interpretation Code 7-25 [facility] Urea nitrogen/Creatinine [Mass ratio] 24 mg/mg Invalid Interpretation Code 6-20 [facility] Urobilinogen (U) [Mass/Vol] normal Invalid Interpretation Code normal [facility] - Hematology and Cell countson 10-31-2021 HbA1c (Bld) [Mass fraction] 5.90 % Invalid Interpretation Code 4.3-6.3 [facility] Hemoglobin Ql (U) Trace Invalid Interpretation Code Negative [facility] Laboratory - Specimen inform ationon 10-31-2021 Clarity (U) Sl. Cloudy Invalid Interpretation Code Clear [facility] Color (U) rafael Invalid Interpretation Code yellow [facility] Laboratory - Urinalysison Glucose Test strip (U) [Mass/Vol] Negative Invalid Interpretation Code Negative [facility] Leukocyte esterase Test strip Ql (U) Trace Invalid Interpretation Code Negative [facility] [employer] [facility] Nitrite Ql (U) Negative Invalid Interpretation Code Negative [facility] [employer] Protein Ql (U) 2+ Invalid Interpretation Code Negative [facility] No Panel Informationon 10-31 123.0 mg/dL Invalid Interpretation Code [facility] 175 Invalid Interpretation Code 70-117 [facility] Laboratory - Chemistry and C hemistry - challengeon 08-02-2021 Albumin (U) [Mass/Vol] < 12.00 Invalid Interpretation Code < 17.0 ug/mL [facility] Anion gap [Moles/Vol] 11 mmol/L Invalid Interpretation Code 10-20 [facility] Bilirubin Ql (U) Negative Invalid Interpretation Code Negative [facility] Calcium [Mass/Vol] 9.20 mg/dL Invalid Interpretation Code 8.5-10.8 [facility] Chloride [Moles/Vol] 104.0 mmol/L Invalid Interpretation Code 100-112 [facility] Cholesterol [Mass/Vol] 274.0 mg/dL Invalid Interpretation Code 0-200 [facility] Cholesterol in HDL [Mass/Vol] 88.0 mg/dL Invalid Interpretation Code 50-100 [facility] Cholesterol in LDL [Mass/Vol] 165.0 mg/dL Invalid Interpretation Code 0-130 [facility] Cholesterol in VLDL [Mass/Vol] 21.0 mg/dL Invalid Interpretation Code 0-39 [facility] Cholesterol.total/Cho lesterol in HDL [Mass ratio] 3 {ratio} Invalid Interpretation Code [facility] CO2 [Moles/Vol] 30.0 mmol/L Invalid Interpretation Code 23-30 [facility] Creatinine (U) [Mass/Vol] 159.70 mg/dL Invalid Interpretation Code Not Estab. mg/dL [facility] Creatinine [Mass/Vol] 0.80 mg/dL Invalid Interpretation Code 0.5-1.5 [facility] GFR/1.73 sq M.predicted among non-blacks MDRD (S/P/Bld) [Vol rate/Area] 70 mL/min/{1.73_m2} Invalid Interpretation Code [facility] Glucose [Mass/Vol] 144.0 mg/dL Invalid Interpretation Code 80-117 [facility] Ketones Ql (U) 2+ Invalid Interpretation Code Negative [place] [facility] pH (U) 7 [pH] Invalid Interpretation Code 5.0-9.0 [facility] [employer] [facility] Potassium [Moles/Vol] 4.80 mmol/L Invalid Interpretation Code 3.5-5.3 [facility] Sodium [Moles/Vol] 140.0 mmol/L Invalid Interpretation Code 135-148 [facility] [employer] [facility] Specific gravity (U) [Rel density] 1.010 Invalid Interpretation Code 1.003-1.030 [facility] [employer] [facility] T4 [Mass/Vol] 8.12 ug/dL Invalid Interpretation Code 5.00-12.00 [facility] [employer] Triglyceride [Mass/Vol] 107.0 mg/dL Invalid Interpretation Code 30-150 [facility] [employer] [facility] TSH Qn 0.37 m[IU]/L Invalid Interpretation Code 0.50-4.00 [employer] Urea nitrogen [Mass/Vol] 19.0 mg/dL Invalid Interpretation Code 7-25 [email or web address] Urea nitrogen/Creatinine [Mass ratio] 24 mg/mg Invalid Interpretation Code 6-20 [email or web address] Urobilinogen (U) [Mass/Vol] normal Invalid Interpretation Code normal [email or web address] - Hematology and Cell countson 08-02-2021 HbA1c (Bld) [Mass fraction] 6.10 % Invalid Interpretation Code 4.3-6.3 [email or web address] Hemoglobin Ql (U) Negative Invalid Interpretation Code Negative [email or web address] - Specimen inform ationon 08-02-2021 Clarity (U) Sl. Cloudy Invalid Interpretation Code Clear [facility] Color (U) rafael Invalid Interpretation Code yellow [facility] Laboratory - Urinalysison Glucose Test strip (U) [Mass/Vol] Negative Invalid Interpretation Code Negative [facility] Leukocyte esterase Test strip Ql (U) Negative Invalid Interpretation Code Negative [facility] Nitrite Ql (U) Negative Invalid Interpretation Code Negative [facility] Protein Ql (U) 1+ Invalid Interpretation Code Negative [facility] No Panel Informationon 08-02 128.0 mg/dL Invalid Interpretation Code [facility] 146 Invalid Interpretation Code 70-117 [facility] Laboratory - Chemistry and C hemistry - challengeon 05-02-2021 Albumin (U) [Mass/Vol] 86.2 Invalid Interpretation Code <17.0 [facility] Albumin/Creatinine DL <= 20 mg/L (U) [Mass ratio] 45.3 mg/g Invalid Interpretation Code 0.0-30.0 [facility] Anion gap [Moles/Vol] 14 mmol/L Invalid Interpretation Code 10-20 [facility] Calcium [Mass/Vol] 9.20 mg/dL Invalid Interpretation Code 8.5-10.8 [facility] Chloride [Moles/Vol] 106.0 mmol/L Invalid Interpretation Code 100-112 [facility] CO2 [Moles/Vol] 27.0 mmol/L Invalid Interpretation Code 23-30 [facility] Creatinine (U) [Mass/Vol] 190.10 mg/dL Invalid Interpretation Code Not Estab. mg/dL [facility] Creatinine [Mass/Vol] 0.70 mg/dL Invalid Interpretation Code 0.5-1.5 [facility] GFR/1.73 sq M.predicted among non-blacks MDRD (S/P/Bld) [Vol rate/Area] 82 mL/min/{1.73_m2} Invalid Interpretation Code [facility] Glucose [Mass/Vol] 204.0 mg/dL Invalid Interpretation Code 80-117 [facility] Potassium [Moles/Vol] 4.80 mmol/L Invalid Interpretation Code 3.5-5.3 [facility] Sodium [Moles/Vol] 142.0 mmol/L Invalid Interpretation Code 135-148 [facility] T4 [Mass/Vol] 8.63 ug/dL Invalid Interpretation Code 5.00-12.00 [facility] TSH Qn 0.12 m[IU]/L Invalid Interpretation Code 0.50-4.00 [facility] Urea nitrogen [Mass/Vol] 25.0 mg/dL Invalid Interpretation Code 7-25 [facility] Urea nitrogen/Creatinine [Mass ratio] 36 mg/mg Invalid Interpretation Code 6-20 [facility] Laboratory - Hematology and Cell countson 05-02-2021 HbA1c (Bld) [Mass fraction] 6.10 % Invalid Interpretation Code 4.3-6.3 [facility] No Panel Informationon 05-02 128.0 mg/dL Invalid Interpretation Code [facility] 194 Invalid Interpretation Code 70-117 [facility] - Chemistry and C hemistry - challengeon 02-02-2021 Albumin (U) [Mass/Vol] < 12.00 Invalid Interpretation Code < 17.0 ug/mL [employer] Anion gap [Moles/Vol] 10 mmol/L Invalid Interpretation Code 10-20 [facility] Calcium [Mass/Vol] 9.10 mg/dL Invalid Interpretation Code 8.5-10.8 [facility] Chloride [Moles/Vol] 105.0 mmol/L Invalid Interpretation Code 100-112 [facility] Cholesterol [Mass/Vol] 266.0 mg/dL Invalid Interpretation Code 0-200 [employer] Cholesterol in HDL [Mass/Vol] 89.0 mg/dL Invalid Interpretation Code 50-100 [employer] [employer] Cholesterol in LDL [Mass/Vol] 163.0 mg/dL Invalid Interpretation Code 0-130 [facility] Cholesterol in VLDL [Mass/Vol] 14.0 mg/dL Invalid Interpretation Code 0-39 [employer] Cholesterol.total/Cho lesterol in HDL [Mass ratio] 3 {ratio} Invalid Interpretation Code [employer] CO2 [Moles/Vol] 32.0 mmol/L Invalid Interpretation Code 23-30 [facility] Creatinine (U) [Mass/Vol] 116.30 mg/dL Invalid Interpretation Code Not Estab. mg/dL [facility] Creatinine [Mass/Vol] 0.70 mg/dL Invalid Interpretation Code 0.5-1.5 [facility] GFR/1.73 sq M.predicted among non-blacks MDRD (S/P/Bld) [Vol rate/Area] 82 mL/min/{1.73_m2} Invalid Interpretation Code [employer] Glucose [Mass/Vol] 162.0 mg/dL Invalid Interpretation Code 80-117 [employer] Potassium [Moles/Vol] 4.80 mmol/L Invalid Interpretation Code 3.5-5.3 [employer] Sodium [Moles/Vol] 142.0 mmol/L Invalid Interpretation Code 135-148 [employer] Triglyceride [Mass/Vol] 70.0 mg/dL Invalid Interpretation Code 30-150 [employer] Urea nitrogen [Mass/Vol] 24.0 mg/dL Invalid Interpretation Code 7-25 [employer] Urea nitrogen/Creatinine [Mass ratio] 34 mg/mg Invalid Interpretation Code 6-20 [facility] [employer] [facility] Laboratory - Hematology and Cell countson 02-02-2021 HbA1c (Bld) [Mass fraction] 6.50 % Invalid Interpretation Code 4.3-6.3 [employer] [facility] [employer] [facility] Laboratory - Urinalysison Glucose Test strip (U) [Mass/Vol] Negative Invalid Interpretation Code negative [employer] Protein (U) [Mass/Vol] trace Invalid Interpretation Code negative [employer] No Panel Informationon 02-02 140.0 mg/dL Invalid Interpretation Code [employer] 158 Invalid Interpretation Code 70-117 [employer] [facility] Laboratory - Chemistry and C hemistry - challengeon 10-20-2020 T4 [Mass/Vol] 8.07 ug/dL Invalid Interpretation Code 5.00-12.00 [facility] TSH Qn 0.24 m[IU]/L Invalid Interpretation Code 0.50-4.00 [facility] [employer] [facility] - Hematology and Cell countson 10-20-2020 Erythrocyte distribution width (RBC) [Ratio] 13.60 % Invalid Interpretation Code 11.5-15.5 [employer] HbA1c (Bld) [Mass fraction] 6.40 % Invalid Interpretation Code 4.3-6.3 [employer] Hematocrit (Bld) [Volume fraction] 37.90 % Invalid Interpretation Code 35.7-47.1 [employer] Hemoglobin (Bld) [Mass/Vol] 12.30 g/dL Invalid Interpretation Code 11.9-15.7 [employer] MCH (RBC) [Entitic mass] 29.40 pg Invalid Interpretation Code 23.2-33.3 [employer] MCHC (RBC) [Mass/Vol] 32.50 g/dL Invalid Interpretation Code 32.0-36.0 [facility] MCV (RBC) [Entitic vol] 90.50 fL Invalid Interpretation Code 83.4-101.4 [facility] Platelet mean volume (Bld) [Entitic vol] 10.80 fL Invalid Interpretation Code 8.3-11.5 [employer] Platelets (Bld) [#/Vol] 213.0 10*3/uL Invalid Interpretation Code 150-400 [employer] RBC (Bld) [#/Vol] 4.190 10*6/uL Invalid Interpretation Code 3.72-5.24 [facility] WBC (Bld) [#/Vol] 4.90 10*3/uL Invalid Interpretation Code 3.9-10.3 [facility] - Urinalysison Glucose Test strip (U) [Mass/Vol] Negative Invalid Interpretation Code negative [facility] Protein (U) [Mass/Vol] Negative Invalid Interpretation Code negative [facility] No Panel Informationon 10-20 137.0 mg/dL Invalid Interpretation Code [facility] 146.0 mg/dL Invalid Interpretation Code <140 [facility] 176 Invalid Interpretation Code 70-117 [facility] CNOVSPon 10-06-2020 CNOVSP Visit (SP) Office ([place]) ---- MARIANA BURK ([id number]) 1950 F Date Time Provider Department 10/06/20 1:00 PM FARRAH NATARAJAN) YU During your visit today, we recorded the following information about you: Temperature Pulse Respiration Blood pressure 97 degrees 84/minute 16/minute 180/79 Weight Height 69.7 kg 1.524 m Farrah Natarajan MD 10/06/2020 1:33 PM Signed CHIEF COMPLAINT: right colon cancer HISTORY OF PRESENT ILLNESS: Mariana Burk is a 68 year old woman who presents in follow up of above. History as noted below 12/2014 : diagnosed with anemia, lower endoscopy discovers right sided colon cancer, had ileocolic resection with anastomosis. Pathologic findings noted pT3N1b right colon cancer : Preoperative CEA was measured at 90, postoperative CEA remained somewhat elevated at 17.4 : In January 2015 MRI of the liver noted 1.1 cm left medial segment nodule and radiographic appearance argued against hemangioma : Discussed with GI oncology on [facility] and surgical oncology with plan to offer 6 cycles of therapy and consider resection 02/2015 : Started FOLFOX treated with 7 cycles with improvement of her CEA MRI noted decrease in size of lesion 07/2015 : Resection completed by Dr. Perry, pathology did not identify malignancy 10/2015 : Completed 12 cycles of FOLFOX and has since been in observation, CEA has ranged between 4 and 5.2 01/2018 : has consultation with Dr. Jin for IPMN- recommend follow up MRI History of present illness: Mariana is here for follow-up. Overall doing quite well. Denies fever chills night sweats or abdominal pains. Colonoscopy December 2018 normal with a clean anastomosis. This was performed by Dr. English. 09/2020 CT without any change in the pancreatic cyst and or evidence of metastatic disease. PAST MEDICAL HISTORY Diagnosis Date - Hyperlipidemia - Hypertension - Post-menopausal - Type 1 diabetes mellitus (HCC) PAST SURGICAL HISTORY Procedure Laterality Date - SECTION HX - COLECTOMY PARTIAL W ANASTOM Right 01/06/2015 For colon cancer - TONSILLECTOMY HX Review of Social History includes: Tobacco Use: Never Alcohol Use: No FAMILY HISTORY Problem Relation Age of Onset - Cancer Father - other (CHF [Other]) Mother Current Outpatient Medications Medication Sig Dispense Refill - ubidecarenone Q-10 (CO Q-10) 10 mg cap Take by mouth twice daily. - APIDRA U-100 INSULIN 100 unit/mL soln 60 UNITS DAILY SCOTTIE THE SKIN IN INSULIN PUMP AND NEEDED PER INJECTION. MAX DAILY 73 UNITS 3 - levothyroxine (SYNTHROID) 112 mcg tablet Take 112 mcg by mouth daily before breakfast. - iv contrast (will be provided with radiology test) CT Chest ABD/PEL-Inject, intravenously, once for 1 dose.No IV access, insert saline lock prior to the beginning of sedation, infusion, injection of imaging exam. Discontinue saline lock post exam. If Pt. has a central line or IVAD, may access for administration according to line specific nursing protocol. Once exam is complete flush line and de-access according to line specific nursing protocol in the CT contrast administration guidelines link. 1 Each 0 - enteric contrast (will be provided with radiology test) For CT CHESTABD/PEL W IVCON Routine order Administer, As Directed One Time Only, via Oral, Rectal, both Oral and Rectal, Enteric Tube, Stoma or Indwelling Catheter, Enteric Contrast as designated per enteric contrast guidelines 1 Each 0 No current facility-administer ed medications for this visit. REVIEW OF SYSTEMS: CONSTITUTIONAL: Weight appetite energy and activity level stable NEURO: No current headaches, or vision changes CV: no chest pain, palpitations or leg swelling PULM: no cough or hemoptysis or dyspnea ABD: no recent bloating or change in bowel habits : no hematuria or dysuria PSYCHE: no depression SKIN: no rash, no sores HEENT: no mouth sores or difficulty swallowing BP 180/79 Pulse 84 Temp 36.1 ?C (97 ?F) (Temporal) Resp 16 Ht 152.4 cm (5') Wt 69.7 kg (153 lb 9.6 oz) SpO2 94% BMI 30.00 kg/m? General: Alert and oriented, no distress, pleasant and cooperative. HEENT: no sores or thrush CV: RRR normal s1 s2 PULM:CTA B EXT: no c/c/e SKIN: no bruise rash or petechaie PSYCHE: normal mood and affect Lymph: no cervical, supraclavicular or axillary adenopathy ABD: NT ND no organomegaly Right breast exam no dominant masses. Increasing nodularity. No axillary adenopathy. IMAGING 05/02/2018 ?CT ABDOMEN/PELVIS Impression IMPRESSION: 1. ?1.0 cm poorly defined hypodense lesion within the pancreatic uncinate process appears stable. 2. ?Approximate 7 mm cystic lesion within the pancreatic neck appears slightly more conspicuous, however felt to most likely relate to a small sidebranch IPMN or sequela of prior pancreatitis. ?Correlation with continue (more content not included)... Normal [facility] MARIANA BURK ([id number]) 1950 F Date Time Provider Department 10/04/20 TESHA ACEVES During your visit today, we recorded the following information about you: TESHA ACEVES PA-C 10/04/2020 8:52 AM Signed Please call with normal CEA level and stable CT scans. Tesha Cruz RN, RN 10/04/2020 12:42 PM Signed Pt viewed results on MyChart. Kareem Cruz RN Allergies As of Date: 10/04/2020 Noted Allergy Reaction DESONIDE 05/25/2019 16 - Unknown LATEX 05/25/2019 16 - Unknown NHGSORC-LOQ-SGE REDUCTASE INHIBIT*05/25/2019 16 - Unknown ADHESIVE TAPE (ROSINS) 07/22/2015 5 - Intolerance Date Reviewed: 10/04/2020 Reviewed by: Tesha Aceves - Fully Assessed Reason for Visit: Results [95] Prescriptions as of 10/04/2020 Sig: IV CONTRAST (RADIOLOGY PROCED* CT Chest ABD/PEL-Inject, intr* ENTERIC CONTRAST (RADIOLOGY P* For CT CHESTABD/PEL W IVCON R* APIDRA U-100 INSULIN 100 UNIT* 60 UNITS DAILY SCOTTIE THE SKIN* LEVOTHYROXINE 112 MCG TABLET Take 112 mcg by mouth daily b* Problem List As Of Date 10/04/2020 Noted Resolved Colon cancer (HCC) [C18.9] 01/31/2015 Encounter Status:Closed by KAREEM CRUZ RN on 10/04/20 Normal [facility] CEAon 09-30-2020 CEA 2.8 ng/mL Normal 0.0-2.9 [facility] Comment on above: Result Comment: Test analyzed by the [employer] DxI method. Performed By: #### C EA #### [facility] [address] [place], [place] [address] CT ABD/PEL W IVCONon 021 CT ABD/PEL W IVCON * * *Final Report* * * DATE OF EXAM: Sep 30 2020 11:35AM [facility] 0530 - CT ABD/PEL W IVCON / PROCEDURE REASON: Malignant neoplasm of rectosigmoid junction (HCC) * * * * Physician Interpretation * * * * RESULT: EXAMINATION: CT ABDOMEN AND PELVIS WITH IV CONTRAST CLINICAL HISTORY: Malignant neoplasm of rectosigmoid junction TECHNIQUE: CT of the abdomen and pelvis was performed using standard technique, scanning from just above the dome of the diaphragm to the symphysis pubis. MQ: CTAP_3 Contrast: IV: 145 ml of Omnipaque 300 Oral: 900 ml of 50ML Omnipaque [address] Radiation dose: Integrated Dose-length product (DLP) for this visit = 1088 mGy*cm. CT Dose Reduction Employed: Automated exposure control (AEC) COMPARISON: 09/21/2019. RESULT: Liver: 5 mm hepatic hypodensity, image 12, series 2, stable. 6 mm hypervascular focus within the left lobe, likely related to atypical hemangioma, series 16, series 2, stable. No new hepatic lesion. Biliary Tract: No bile duct dilation. The gallbladder appears unremarkable. Spleen: No splenomegaly. No mass. Pancreas: No ductal dilatation. 7 mm hypodensity within the pancreatic uncinate process, stable, likely related to a sidebranch IPMN or sequela of prior pancreatitis. Adrenal glands: No mass. Kidneys: No enhancing mass or hydronephrosis. GI Tract: No bowel wall thickening or dilation. The stomach and duodenum appear unremarkable. Postoperative changes involving the right colon are again noted, stable. Lymph nodes: No substantial mesenteric, retroperitoneal, or pelvic lymphadenopathy. Mesentery: No ascites. No mass. Retroperitoneum: No mass. Vasculature: The celiac axis and SMA are patent. The portal vein and branches, splenic vein, SMV, and hepatic veins are patent. Arterial atherosclerotic disease, the abdominal aorta and common iliac arteries are normal in caliber. Pelvis: No free fluid or pelvic mass. No substantial inguinal adenopathy. Bones/Soft Tissues: Degenerative change involving the lumbar spine. No osseous destructive process. Lower Thorax: A CT examination of the chest has been performed concurrently and will be dictated separately. A&P Mechanic (topogram) images: No additional findings. IMPRESSION: 1. 7 mm cystic focus within the pancreatic uncinate process, stable, likely related to a small sidebranch IPMN or sequela of prior pancreatitis. 2. Subcentimeter hepatic lesions, unchanged. Transcribe Date/Time: Sep 30 2020 1:53P Dictated by: AMANDA FRANCOIS MD This examination was interpreted and the report reviewed and electronically signed by: AMANDA FRANCOIS MD on Oct 03 2020 9:09AM EST Thank you for allowing us to participate in the care of your patient. Should there be any questions regarding this interpretation, please call [phone]. If you are unable to reach us at the number above, please feel free to contact [facility] at [phone]. [id number] [id number] Normal [facility] CT CHEST W IVCONon 1 CT CHEST W IVCON * * *Final Report* * * DATE OF EXAM: Sep 30 2020 11:35AM [facility] 0539 - CT CHEST W IVCON / PROCEDURE REASON: Malignant neoplasm of rectosigmoid junction (HCC) * * * * Physician Interpretation * * * * RESULT: EXAMINATION: CHEST CT WITH CONTRAST CLINICAL HISTORY: Neoplasm: colorectal, rx monitor or follow up Technique: Spiral CT acquisition of the chest from the thoracic inlet to the upper abdomen following IV contrast. MQ: [id number]_6 Contrast: 145 mL Omnipaque [address] Radiation dose: Integrated Dose-length product (DLP) for this visit = 1088 mGy*cm CT Dose Reduction Employed: Automated exposure control (AEC) Comparison: CT chest 09/21/2019. RESULT: Limitations: None. Lines, tubes, and devices: None. Lung parenchyma and airways: No consolidative process. The trachea and major airways appear patent. Linear atelectasis/scarrin g at the lung bases bilaterally is again noted, stable. Mild, diffuse bronchial wall thickening is again noted. Punctate right upper lobe calcified granuloma, stable. Pleural space: No pleural effusion. No substantial pleural thickening. Lower neck, lymph nodes, and mediastinum: The visualized thyroid gland appears stable. No substantial supraclavicular or axillary lymphadenopathy is appreciated. Scattered subcentimeter mediastinal lymph nodes are again identified, unchanged. Mild soft tissue prominence at the josiah bilaterally, stable. No substantial mediastinal or hilar adenopathy is identified. Heart, pericardium, and thoracic vessels: The thoracic aorta is normal in caliber. No substantial pericardial effusion. Bones/Soft Tissues: Degenerative change involving the thoracic spine. No osseous destructive process. Deformities of several left ribs are again noted, likely on the basis of remote fractures. Upper Abdomen: A CT examination of the abdomen has been performed concurrently and will be dictated separately. A&P Mechanic (topogram) images: No additional findings. IMPRESSION: Stable CT examination of the chest. Transcribe Date/Time: Sep 30 2020 1:33P Dictated by: AMANDA FRANCOIS MD This examination was interpreted and the report reviewed and electronically signed by: AMANDA FRANCOIS MD on Oct 03 2020 9:09AM EST Thank you for allowing us to participate in the care of your patient. Should there be any questions regarding this interpretation, please call [phone]. If you are unable to reach us at the number above, please feel free to contact [facility] at [phone]. [id number] [id number] Normal [facility] Comp Metabolic Panelon 09-30 Albumin [Mass/Vol] 4.2 g/dL Normal 3.9-4.9 [facility] ALP [Catalytic activity/Vol] 128 U/L High 34-123 [facility] ALT [Catalytic activity/Vol] 25 U/L Normal 7-38 [facility] Anion gap [Moles/Vol] 5 mmol/L Low 9-18 [facility] AST [Catalytic activity/Vol] 27 U/L Normal 13-35 [facility] Bilirubin [Mass/Vol] 0.6 mg/dL Normal 0.2-1.3 [facility] Calcium [Mass/Vol] 9.5 mg/dL Normal 8.5-10.2 [facility] Chloride [Moles/Vol] 105 mmol/L Normal 97-105 [facility] CO2 [Moles/Vol] 32 mmol/L High 22-30 [facility] Creatinine [Mass/Vol] 0.67 mg/dL Normal 0.58-0.96 [facility] eGFR- Amer. >60 Normal [facility] eGFR-All Other Races >60 Normal [facility] Comment on above: Result Comment: eGFR (Estimated GFR) Units of measure: mL/min/1.73 meters squared eGFR is derived from the reexpressed MDRD Study equation using the following parameters: serum creatinine, age, gender and race. The creatinine assay has been calibrated to be traceable to IDMS. An eGFR <60 mL/min/1.73m2 for >3 months is consistent with chronic kidney disease. Refer to KDOQI guidelines for clinical interpretation. In patients with unstable renal function, e.g. those with acute kidney injury, the eGFR may not accurately reflect actual GFR. Glucose [Mass/Vol] 190 mg/dL High 74-99 [facility] Comment on above: Result Comment: The [place] Diabetes Association (ADA) provides guidance for cutoff values for fasting glucose and random glucose. The ADA defines fasting as no caloric intake for at least 8 hours. Fasting plasma glucose results between 100 to 125 mg/dL indicate increased risk for diabetes (prediabetes). Fasting plasma glucose results greater than or equal to 126 mg/dL meet the criteria for diagnosis of diabetes. In the absence of unequivocal hyperglycemia, results should be confirmed by repeat testing. In a patient with classic symptoms of hyperglycemia or hyperglycemic crisis, random plasma glucose results greater than or equal to 200 mg/dL meet the criteria for diagnosis of diabetes. Reference: Standards of Medical Care in Diabetes 2016, [place] [employer] Association. Diabetes Care. 2016.39(Suppl 1). Potassium [Moles/Vol] 4.8 mmol/L Normal 3.7-5.1 [facility] Protein [Mass/Vol] 6.6 g/dL Normal 6.3-8.0 [facility] Sodium [Moles/Vol] 142 mmol/L Normal 136-144 [facility] Urea nitrogen [Mass/Vol] 21 mg/dL Normal 7-21 [facility] Remote CBCDIF (for [facility] use o nly)on 09-30-2020 Abs Baso 0.04 k/uL Normal <0.11 [facility] Abs [place] 0.44 k/uL Normal <0.87 [facility] Abs Neut 4.94 k/uL Normal 1.45-7.50 [facility] Absolute nRBC <0.01 Normal <0.01 [facility] Basophils/100 WBC (Bld) 0.6 % Normal [facility] DTYPE Auto Diff Normal [facility] Eosinophils (Bld) [#/Vol] 0.06 10*3/uL Normal <0.46 [facility] Eosinophils/100 WBC (Bld) 0.9 % Normal [facility] Erythrocyte distribution width (RBC) [Ratio] 13.5 % Normal 11.5-15.0 [facility] Hematocrit (Bld) [Volume fraction] 39.0 % Normal 36.0-46.0 [facility] Hemoglobin (Bld) [Mass/Vol] 12.9 g/dL Normal 11.5-15.5 [facility] Lymphocytes (Bld) [#/Vol] 1.46 10*3/uL Normal 1.00-4.00 [facility] Lymphocytes/100 WBC (Bld) 21.0 % Normal [facility] MCH 29.6 pG Normal 26.0-34.0 [facility] MCHC (RBC) [Mass/Vol] 33.1 g/dL Normal 30.5-36.0 [facility] MCV (RBC) [Entitic vol] 89.4 fL Normal 80.0-100.0 [facility] Monocytes/100 WBC (Bld) 6.3 % Normal [facility] Neutrophils/100 WBC (Bld) 71.2 % Normal [facility] NRBCs 0.0 /100 WBC Normal 0 [facility] Platelet mean volume (Bld) [Entitic vol] 10.4 fL Normal 9.0-12.7 [facility] Platelets (Bld) [#/Vol] 184 10*3/uL Normal 150-400 [facility] RBC (Bld) [#/Vol] 4.36 10*6/uL Normal 3.90-5.20 [facility] WBC (Bld) [#/Vol] 6.96 10*3/uL Normal 3.70-11.00 [facility]acon 07-21-2020 Cholesterol [Mass/Vol] 230.0 mg/dL Invalid Interpretation Code 0-200 [facility] Cholesterol in HDL [Mass/Vol] 75.0 mg/dL Invalid Interpretation Code 50-100 [place] [facility] Cholesterol in LDL [Mass/Vol] 139.0 mg/dL Invalid Interpretation Code 0-130 [facility] [employer] Triglyceride [Mass/Vol] 82.0 mg/dL Invalid Interpretation Code 30-150 [facility] [employer] CoV2 IgG Ab,Son 07-21-2020 Date of onset [id number] Normal [facility] Comment on above: Performed By: #### C [id number] #### [id number] [place] [address] Employed in healthcare? Unknown Normal [facility] Comment on above: Performed By: #### C [id number] #### [address] [place] [address] Group care resident? Unknown Normal [facility] Comment on above: Performed By: #### C [id number] #### [address] [place] [address] Hospitalized due to COVID-19? Unknown Normal [facility] Comment on above: Performed By: #### C [id number] #### [address] [place] [address] In ICU? Unknown Normal [facility] Comment on above: Performed By: #### C [id number] #### [address] [place] [address] Is this the first test for COVID? Unknown Normal [facility] Comment on above: Performed By: #### C [id number] #### [address] [place] [address] status? Unknown Normal [facility] Comment on above: Performed By: #### C [id number] #### [address] [place] [address] SARS-CoV-2 IgG Ab Reactive Abnormal Non-Reactive [facility] Comment on above: Result Comment: SARS -CoV-2 IgG antibodies detected. Results suggest recent or prior infection with SARS-CoV-2. Reactive results may also be due to past or present infection with [id number] coronavirus strains, such as coronavirus HKU1, NL63, OC43, or 229E. Results from antibody testing should not be used to diagnose or exclude acute SARS-CoV-2 infection. If acute infection is suspected, direct testing for SARS-CoV-2 is necessary. The Access SARS-CoV-2 IgG assay results should be interpreted in light of the total clinical presentation of the patient, including: symptoms, clinical history, data from additional tests, and other appropriate information. ADDITIONAL INFORMATION: Testing was performed using the ACCESS SARS-CoV-2 IgG Antibody assay by [employer], which has received Emergency Use Authorization (EUA) by the U.S. Food and Drug Administration. Fact sheets for this Emergency Use Authorization (EUA) assay can be found at the following locations: For Healthcare Providers: https://[employer]/download/wsr-502587 For Patients: https://[employer]/download/wsr-088014 Performed By: #### C [id number] #### [address] [address] Symptomatic as defined by CDC? Unknown Normal [facility] Comment on above: Performed By: #### C [id number] #### [address] [address] Laboratory - Chemistry and C hemistry - challengeon 07-21-2020 Cholesterol.total/Cho lesterol in HDL [Mass ratio] 3 {ratio} Invalid Interpretation Code [employer] [facility] Laboratory - Urinalysison Glucose Test strip (U) [Mass/Vol] Negative Invalid Interpretation Code negative [employer] Protein (U) [Mass/Vol] Negative Invalid Interpretation Code negative [employer] Metabolic Panelon 07-21-2020 Anion gap [Moles/Vol] 11 mmol/L Invalid Interpretation Code 10-20 [employer] Calcium [Mass/Vol] 9.10 mg/dL Invalid Interpretation Code 8.5-10.8 [facility] Chloride [Moles/Vol] 104.0 mmol/L Invalid Interpretation Code 100-112 [facility] CO2 [Moles/Vol] 29.0 mmol/L Invalid Interpretation Code 23-30 [facility] Creatinine [Mass/Vol] 0.80 mg/dL Invalid Interpretation Code 0.5-1.5 [place] [facility] GFR/1.73 sq M predicted among non-blacks MDRD (S/P/Bld) [Vol rate/Area] 71 mL/min/{1.73_m2} Invalid Interpretation Code [place] [facility] Glucose [Mass/Vol] 188 mg/dL 70-117 [facility] [place] Glucose [Mass/Vol] 189.0 mg/dL Invalid Interpretation Code 80-117 [place] [facility] HbA1c (Bld) [Mass fraction] 6.50 % Invalid Interpretation Code 4.3-6.3 [place] [facility] Potassium [Moles/Vol] 4.70 mmol/L Invalid Interpretation Code 3.5-5.3 [employer] Sodium [Moles/Vol] 139.0 mmol/L Invalid Interpretation Code 135-148 [place] [facility] Urea nitrogen [Mass/Vol] 15.0 mg/dL Invalid Interpretation Code 7-25 [place] [facility] Urea nitrogen/Creatinine [Mass ratio] 19 mg/mg Invalid Interpretation Code 6-20 [employer] No Panel Informationon 07-21 188 Invalid Interpretation Code 70-117 [employer] Otheron 07-21-2020 Cholesterol in VLDL [Mass/Vol] 16.0 mg/dL Invalid Interpretation Code 0-39 [employer] [employer] Cholesterol.total/Cho lesterol in HDL [Mass ratio] 3 (calc) [employer] Glucose Test strip (U) [Mass/Vol] Negative negative [employer] 140.0 mg/dL Invalid Interpretation Code [facility] Thyroidon 07-21-2020 T4 [Mass/Vol] 9.72 ug/dL Invalid Interpretation Code 5.00-12.00 [facility] TSH Qn 0.10 m[IU]/L Invalid Interpretation Code 0.50-4.00 [facility] Urinalysison 07-21-2020 Protein (U) [Mass/Vol] Negative negative [facility] 04-14-2020 Cholesterol [Mass/Vol] 245.0 mg/dL Invalid Interpretation Code 0-200 [facility] Cholesterol in HDL [Mass/Vol] 82.0 mg/dL Invalid Interpretation Code 50-100 [facility] Cholesterol in LDL [Mass/Vol] 146.0 mg/dL Invalid Interpretation Code 0-130 [facility] Triglyceride [Mass/Vol] 83.0 mg/dL Invalid Interpretation Code 30-150 [facility] Laboratory - Chemistry and C hemistry - challengeon 04-14-2020 Cholesterol.total/Cho lesterol in HDL [Mass ratio] 3 {ratio} Invalid Interpretation Code [facility] Laboratory - Urinalysison Glucose Test strip (U) [Mass/Vol] Negative Invalid Interpretation Code negative [facility] Protein (U) [Mass/Vol] Negative Invalid Interpretation Code negative [facility] Metabolic Panelon 04-14-2020 Anion gap [Moles/Vol] 14 mmol/L Invalid Interpretation Code 10-20 [facility] Calcium [Mass/Vol] 9.20 mg/dL Invalid Interpretation Code 8.5-10.8 [facility] Chloride [Moles/Vol] 104.0 mmol/L Invalid Interpretation Code 100-112 [facility] CO2 [Moles/Vol] 29.0 mmol/L Invalid Interpretation Code 23-30 [facility] Creatinine [Mass/Vol] 0.60 mg/dL Invalid Interpretation Code 0.5-1.5 [facility] GFR/1.73 sq M predicted among non-blacks MDRD (S/P/Bld) [Vol rate/Area] 98 mL/min/{1.73_m2} Invalid Interpretation Code [facility] Glucose [Mass/Vol] 133.0 mg/dL Invalid Interpretation Code 80-117 [facility] HbA1c (Bld) [Mass fraction] 6.50 % Invalid Interpretation Code 4.3-6.3 [facility] Potassium [Moles/Vol] 4.70 mmol/L Invalid Interpretation Code 3.5-5.3 [facility] Sodium [Moles/Vol] 142.0 mmol/L Invalid Interpretation Code 135-148 [facility] Urea nitrogen [Mass/Vol] 17.0 mg/dL Invalid Interpretation Code 7-25 [facility] Urea nitrogen/Creatinine [Mass ratio] 28 mg/mg Invalid Interpretation Code 6-20 [facility] Otheron 04-14-2020 Cholesterol in VLDL [Mass/Vol] 17.0 mg/dL Invalid Interpretation Code 0-39 [facility] Cholesterol.total/Cho lesterol in HDL [Mass ratio] 3 (calc) [facility] Glucose Test strip (U) [Mass/Vol] Negative negative [facility] Urate [Mass/Vol] 2.80 mg/dL Invalid Interpretation Code 2.4-7.0 [employer] 140.0 mg/dL Invalid Interpretation Code [employer] [facility] Urinalysison 04-14-2020 Protein (U) [Mass/Vol] Negative negative [employer] [facility] [employer] [facility] Laboratory - Chemistry and C hemistry - challengeon 01-14-2020 Albumin (U) [Mass/Vol] < 12.00 Invalid Interpretation Code < 17.0 ug/mL [employer] [facility] [employer] [facility] Anion gap [Moles/Vol] 15 mmol/L Invalid Interpretation Code 10-20 [facility] Calcium [Mass/Vol] 8.90 mg/dL Invalid Interpretation Code 8.5-10.8 [facility] [facility] [employer] [facility] Chloride [Moles/Vol] 102.0 mmol/L Invalid Interpretation Code 100-112 [facility] CO2 [Moles/Vol] 29.0 mmol/L Invalid Interpretation Code 23-30 [facility] Creatinine (U) [Mass/Vol] 20.10 mg/dL Invalid Interpretation Code Not Estab. mg/dL [facility] Creatinine [Mass/Vol] 0.60 mg/dL Invalid Interpretation Code 0.5-1.5 [facility] [employer] [facility] GFR/1.73 sq M.predicted among non-blacks MDRD (S/P/Bld) [Vol rate/Area] 98 mL/min/{1.73_m2} Invalid Interpretation Code [facility] Glucose [Mass/Vol] 148.0 mg/dL Invalid Interpretation Code 80-117 [facility] [employer] [facility] Potassium [Moles/Vol] 4.70 mmol/L Invalid Interpretation Code 3.5-5.3 [facility] Sodium [Moles/Vol] 141.0 mmol/L Invalid Interpretation Code 135-148 [facility] T4 [Mass/Vol] 9.01 ug/dL Invalid Interpretation Code 5.00-12.00 [facility] TSH Qn 0.24 m[IU]/L Invalid Interpretation Code 0.50-4.00 [employer] [facility] [employer] [facility] Urea nitrogen [Mass/Vol] 16.0 mg/dL Invalid Interpretation Code 7-25 [facility] Urea nitrogen/Creatinine [Mass ratio] 27 mg/mg Invalid Interpretation Code 6-20 [facility] Laboratory - Hematology and Cell countson 01-14-2020 HbA1c (Bld) [Mass fraction] 6.80 % Invalid Interpretation Code 4.3-6.3 [facility] Laboratory - Urinalysison Glucose Test strip (U) [Mass/Vol] Negative Invalid Interpretation Code negative [employer] [facility] Protein (U) [Mass/Vol] Negative Invalid Interpretation Code negative [email or web address] No Panel Informationon 01-13 148.0 mg/dL Invalid Interpretation Code [facility] 08-21-2019 Cholesterol [Mass/Vol] 283.0 mg/dL Invalid Interpretation Code 0-200 [facility] Cholesterol in HDL [Mass/Vol] 87.0 mg/dL Invalid Interpretation Code 50-100 [facility] Cholesterol in LDL [Mass/Vol] 177.0 mg/dL Invalid Interpretation Code 0-130 [facility] Triglyceride [Mass/Vol] 97.0 mg/dL Invalid Interpretation Code 30-150 [facility] Laboratory - Urinalysison Glucose Test strip (U) [Mass/Vol] Negative Invalid Interpretation Code negative [facility] Protein (U) [Mass/Vol] Negative Invalid Interpretation Code negative [facility] [employer] [facility] Metabolic Panelon 08-21-2019 Anion gap [Moles/Vol] 14 mmol/L Invalid Interpretation Code 10-20 [facility] Calcium [Mass/Vol] 9.30 mg/dL Invalid Interpretation Code 8.5-10.8 [facility] Chloride [Moles/Vol] 103.0 mmol/L Invalid Interpretation Code 100-112 [facility] CO2 [Moles/Vol] 28.0 mmol/L Invalid Interpretation Code 23-30 [facility] Creatinine [Mass/Vol] 0.70 mg/dL Invalid Interpretation Code 0.5-1.5 [facility] GFR/1.73 sq M predicted among non-blacks MDRD (S/P/Bld) [Vol rate/Area] 83 mL/min/{1.73_m2} Invalid Interpretation Code [facility] Glucose [Mass/Vol] 151.0 mg/dL Invalid Interpretation Code 80-117 [facility] HbA1c (Bld) [Mass fraction] 7.0 % Invalid Interpretation Code 4.3-6.3 [facility] Potassium [Moles/Vol] 4.50 mmol/L Invalid Interpretation Code 3.5-5.3 [facility] Sodium [Moles/Vol] 140.0 mmol/L Invalid Interpretation Code 135-148 [facility] Urea nitrogen [Mass/Vol] 18.0 mg/dL Invalid Interpretation Code 7-25 [facility] Urea nitrogen/Creatinine [Mass ratio] 26 mg/mg Invalid Interpretation Code 6-20 [facility] Otheron 08-21-2019 Cholesterol in VLDL [Mass/Vol] 19.0 mg/dL Invalid Interpretation Code 0-39 [facility] Cholesterol.total/Cho lesterol in HDL [Mass ratio] 3 {ratio} Invalid Interpretation Code [facility] Glucose Test strip (U) [Mass/Vol] Negative negative [facility] 154 [facility] 154.0 mg/dL Invalid Interpretation Code [facility] Urinalysison 08-21-2019 Protein (U) [Mass/Vol] Negative negative [facility] Laboratory - Urinalysison Glucose Test strip (U) [Mass/Vol] Negative Invalid Interpretation Code negative [facility] Protein (U) [Mass/Vol] Negative Invalid Interpretation Code negative [facility] Metabolic Panelon 05-22-2019 Anion gap [Moles/Vol] 14 mmol/L Invalid Interpretation Code 10-20 [facility] Calcium [Mass/Vol] 9.50 mg/dL Invalid Interpretation Code 8.5-10.8 [facility] Chloride [Moles/Vol] 103.0 mmol/L Invalid Interpretation Code 100-112 [facility] CO2 [Moles/Vol] 31.0 mmol/L Invalid Interpretation Code 23-30 [facility] Creatinine [Mass/Vol] 0.70 mg/dL Invalid Interpretation Code 0.5-1.5 [facility] GFR/1.73 sq M predicted among non-blacks MDRD (S/P/Bld) [Vol rate/Area] 83 mL/min/{1.73_m2} Invalid Interpretation Code [facility] Glucose [Mass/Vol] 77.0 mg/dL Invalid Interpretation Code 80-117 [facility] HbA1c (Bld) [Mass fraction] 6.60 % Invalid Interpretation Code 4.3-6.3 [facility] Potassium [Moles/Vol] 4.60 mmol/L Invalid Interpretation Code 3.5-5.3 [facility] Sodium [Moles/Vol] 143.0 mmol/L Invalid Interpretation Code 135-148 [facility] Urea nitrogen [Mass/Vol] 14.0 mg/dL Invalid Interpretation Code 7-25 [facility] Urea nitrogen/Creatinine [Mass ratio] 20 mg/mg Invalid Interpretation Code 6-20 [facility] Otheron 05-22-2019 Albumin (U) [Mass/Vol] 13.0 Invalid Interpretation Code <17.0 [facility] Glucose Test strip (U) [Mass/Vol] Negative negative [facility] See Above Invalid Interpretation Code 0-0 [facility] 143 [facility] 143.0 mg/dL Invalid Interpretation Code [facility] Urinalysison 05-22-2019 Albumin/Creatinine DL <= 20 mg/L (U) [Mass ratio] 6.6 mg/g Invalid Interpretation Code 0.0-30.0 [facility] Creatinine (U) [Mass/Vol] 197.80 mg/dL Invalid Interpretation Code Not Estab. mg/dL [facility] Protein (U) [Mass/Vol] Negative negative [facility] 02-12-2019 Cholesterol [Mass/Vol] 264.0 mg/dL Invalid Interpretation Code 0-200 [facility] Cholesterol in HDL [Mass/Vol] 69.0 mg/dL Invalid Interpretation Code 50-100 [facility] Cholesterol in LDL [Mass/Vol] 169.0 mg/dL Invalid Interpretation Code 0-130 [facility] Triglyceride [Mass/Vol] 132.0 mg/dL Invalid Interpretation Code 30-150 [facility] Hematologyon 02-12-2019 Hematocrit (Bld) [Volume fraction] 39.90 % Invalid Interpretation Code 35.7-47.1 [facility] Hemoglobin (Bld) [Mass/Vol] 13.30 g/dL Invalid Interpretation Code 11.9-15.7 [facility] MCH (RBC) [Entitic mass] 29.80 pg Invalid Interpretation Code 23.2-33.3 [facility] MCV (RBC) [Entitic vol] 89.50 fL Invalid Interpretation Code 83.4-101.4 [facility] Platelets (Bld) [#/Vol] 211.0 10*3/uL Invalid Interpretation Code 150-400 [facility] RBC (Bld) [#/Vol] 4.460 10*6/uL Invalid Interpretation Code 3.72-5.24 [facility] WBC (Bld) [#/Vol] 4.60 10*3/uL Invalid Interpretation Code 3.9-10.3 [facility] Laboratory - Urinalysison Glucose Test strip (U) [Mass/Vol] Negative Invalid Interpretation Code negative [facility] Metabolic Panelon 02-12-2019 Anion gap [Moles/Vol] 12 mmol/L Invalid Interpretation Code 10-20 [facility] Calcium [Mass/Vol] 9.0 mg/dL Invalid Interpretation Code 8.5-10.8 [facility] Chloride [Moles/Vol] 106.0 mmol/L Invalid Interpretation Code 100-112 [facility] CO2 [Moles/Vol] 30.0 mmol/L Invalid Interpretation Code 23-30 [facility] Creatinine [Mass/Vol] 0.70 mg/dL Invalid Interpretation Code 0.5-1.5 [facility] GFR/1.73 sq M predicted among non-blacks MDRD (S/P/Bld) [Vol rate/Area] 83 mL/min/{1.73_m2} Invalid Interpretation Code [facility] Glucose [Mass/Vol] 82.0 mg/dL Invalid Interpretation Code 80-117 [facility] HbA1c (Bld) [Mass fraction] 7.20 % Invalid Interpretation Code 4.3-6.3 [facility] Potassium [Moles/Vol] 4.20 mmol/L Invalid Interpretation Code 3.5-5.3 [facility] Sodium [Moles/Vol] 144.0 mmol/L Invalid Interpretation Code 135-148 [facility] Urea nitrogen [Mass/Vol] 17.0 mg/dL Invalid Interpretation Code 7-25 [facility] Urea nitrogen/Creatinine [Mass ratio] 24 mg/mg Invalid Interpretation Code 6-20 [facility] Otheron 02-12-2019 Albumin (U) [Mass/Vol] 12.7 Invalid Interpretation Code <17.0 [facility] Cholesterol in VLDL [Mass/Vol] 26.0 mg/dL Invalid Interpretation Code 0-39 [facility] Cholesterol.total/Cho lesterol in HDL [Mass ratio] 4 {ratio} Invalid Interpretation Code [facility] Erythrocyte distribution width (RBC) [Ratio] 13.0 % Invalid Interpretation Code 11.5-15.5 [facility] Glucose Test strip (U) [Mass/Vol] Negative negative [facility] MCHC (RBC) [Mass/Vol] 33.30 g/dL Invalid Interpretation Code 32.0-36.0 [facility] Platelet mean volume (Bld) [Entitic vol] 10.70 fL Invalid Interpretation Code 8.3-11.5 [facility] 160 [facility] See Above Invalid Interpretation Code 0-0 [facility] 160.0 mg/dL Invalid Interpretation Code [facility] Thyroidon 02-12-2019 T4 [Mass/Vol] 7.63 ug/dL Invalid Interpretation Code 5.00-12.00 [facility] TSH Qn 0.44 m[IU]/L Invalid Interpretation Code 0.50-4.00 [facility] Urinalysison 02-12-2019 Albumin/Creatinine DL <= 20 mg/L (U) [Mass ratio] 5.1 mg/g Invalid Interpretation Code 0.0-30.0 [facility] Creatinine (U) [Mass/Vol] 250.20 mg/dL Invalid Interpretation Code Not Estab. mg/dL [facility] Protein (U) [Mass/Vol] trace Invalid Interpretation Code negative [facility] 11-28-2018 Cholesterol [Mass/Vol] 257.0 mg/dL Invalid Interpretation Code 0-200 [facility] Cholesterol in HDL [Mass/Vol] 66.0 mg/dL Invalid Interpretation Code 50-100 [facility] Cholesterol in LDL [Mass/Vol] 161.0 mg/dL Invalid Interpretation Code 0-130 [facility] Triglyceride [Mass/Vol] 152.0 mg/dL Invalid Interpretation Code 30-150 [facility] Metabolic Panelon 11-28-2018 Anion gap [Moles/Vol] 14 mmol/L Invalid Interpretation Code 10-20 [facility] Calcium [Mass/Vol] 9.20 mg/dL Invalid Interpretation Code 8.5-10.8 [facility] Chloride [Moles/Vol] 104.0 mmol/L Invalid Interpretation Code 100-112 [facility] CO2 [Moles/Vol] 30.0 mmol/L Invalid Interpretation Code 23-30 [facility] Creatinine [Mass/Vol] 0.70 mg/dL Invalid Interpretation Code 0.5-1.5 [facility] GFR/1.73 sq M predicted among non-blacks MDRD (S/P/Bld) [Vol rate/Area] 83 mL/min/{1.73_m2} Invalid Interpretation Code [facility] Glucose [Mass/Vol] 169.0 mg/dL Invalid Interpretation Code 80-117 [facility] HbA1c (Bld) [Mass fraction] 7.10 % Invalid Interpretation Code 4.3-6.3 [facility] Potassium [Moles/Vol] 4.50 mmol/L Invalid Interpretation Code 3.5-5.3 [facility] Sodium [Moles/Vol] 143.0 mmol/L Invalid Interpretation Code 135-148 [facility] Urea nitrogen [Mass/Vol] 21.0 mg/dL Invalid Interpretation Code 7-25 [facility] Urea nitrogen/Creatinine [Mass ratio] 30 mg/mg Invalid Interpretation Code 6-20 [facility] Otheron 11-28-2018 Cholesterol in VLDL [Mass/Vol] 30.0 mg/dL Invalid Interpretation Code 0-39 [facility] Cholesterol.total/Cho lesterol in HDL [Mass ratio] 4 {ratio} Invalid Interpretation Code [facility] See Above Invalid Interpretation Code 0-0 [facility] 157 [facility] 157.0 mg/dL Invalid Interpretation Code [facility] Metabolic Panelon 08-29-2018 Anion gap [Moles/Vol] 14 mmol/L Invalid Interpretation Code 10-20 [facility] Calcium [Mass/Vol] 9.30 mg/dL Invalid Interpretation Code 8.5-10.8 [facility] Chloride [Moles/Vol] 102 mmol/L Invalid Interpretation Code 100-112 [facility] CO2 [Moles/Vol] 29 mmol/L Invalid Interpretation Code 23-30 [facility] Creatinine [Mass/Vol] 0.80 mg/dL Invalid Interpretation Code 0.5-1.5 [facility] GFR/1.73 sq M predicted among non-blacks MDRD (S/P/Bld) [Vol rate/Area] 71 mL/min/{1.73_m2} Invalid Interpretation Code [facility] Glucose [Mass/Vol] 185.0 mg/dL Invalid Interpretation Code 80-117 [facility] HbA1c (Bld) [Mass fraction] 6.70 % Invalid Interpretation Code 4.3-6.3 [facility] Potassium [Moles/Vol] 4.3 mmol/L Invalid Interpretation Code 3.5-5.3 [facility] Sodium [Moles/Vol] 141 mmol/L Invalid Interpretation Code 135-148 [facility] Urea nitrogen [Mass/Vol] 23.0 mg/dL Invalid Interpretation Code 7-25 [facility] Urea nitrogen/Creatinine [Mass ratio] 29 mg/mg Invalid Interpretation Code 6-20 [facility] Otheron 08-29-2018 Albumin (U) [Mass/Vol] 15.9 Invalid Interpretation Code <17.0 [facility] 146 [facility] 146.0 mg/dL Invalid Interpretation Code [facility] Urinalysison 08-29-2018 Albumin/Creatinine DL <= 20 mg/L (U) [Mass ratio] 8.5 mg/g Invalid Interpretation Code 0.0-30.0 [facility] Creatinine (U) [Mass/Vol] 187.40 mg/dL Invalid Interpretation Code Not Estab. mg/dL [facility] No Panel Informationon 08-01 Diabetic Retinal Eye Exam Invalid Interpretation Code [facility] 05-30-2018 Cholesterol [Mass/Vol] 266.0 mg/dL Invalid Interpretation Code 0-200 [facility] Cholesterol in HDL [Mass/Vol] 77.0 mg/dL Invalid Interpretation Code 50-100 [facility] Cholesterol in LDL [Mass/Vol] 166.0 mg/dL Invalid Interpretation Code 0-130 [facility] Triglyceride [Mass/Vol] 115.0 mg/dL Invalid Interpretation Code 30-150 [facility] Laboratory - Urinalysison Glucose Test strip (U) [Mass/Vol] Negative Invalid Interpretation Code negative [facility] Protein (U) [Mass/Vol] Negative Invalid Interpretation Code negative [facility] Metabolic Panelon 05-30-2018 Anion gap [Moles/Vol] 13 mmol/L Invalid Interpretation Code 10-20 [facility] Calcium [Mass/Vol] 9.30 mg/dL Invalid Interpretation Code 8.5-10.8 [facility] Chloride [Moles/Vol] 104 mmol/L Invalid Interpretation Code 100-112 [facility] CO2 [Moles/Vol] 28 mmol/L Invalid Interpretation Code 23-30 [facility] Creatinine [Mass/Vol] 0.70 mg/dL Invalid Interpretation Code 0.5-1.5 [facility] GFR/1.73 sq M predicted among non-blacks MDRD (S/P/Bld) [Vol rate/Area] 83 mL/min/{1.73_m2} Invalid Interpretation Code [facility] Glucose [Mass/Vol] 188.0 mg/dL Invalid Interpretation Code 80-117 [facility] HbA1c (Bld) [Mass fraction] 6.60 % Invalid Interpretation Code 4.3-6.3 [facility] Potassium [Moles/Vol] 4.6 mmol/L Invalid Interpretation Code 3.5-5.3 [facility] Sodium [Moles/Vol] 140 mmol/L Invalid Interpretation Code 135-148 [facility] Urea nitrogen [Mass/Vol] 20.0 mg/dL Invalid Interpretation Code 7-25 [facility] Urea nitrogen/Creatinine [Mass ratio] 29 mg/mg Invalid Interpretation Code 6-20 [facility] Otheron 05-30-2018 Cholesterol in VLDL [Mass/Vol] 23.0 mg/dL Invalid Interpretation Code 0-39 [facility] Cholesterol.total/Cho lesterol in HDL [Mass ratio] 3 {ratio} Invalid Interpretation Code [facility] Glucose Test strip (U) [Mass/Vol] Negative negative [facility] 143 [facility] See Above Invalid Interpretation Code 0-0 [facility] 143.0 mg/dL Invalid Interpretation Code [facility] Thyroidon 05-30-2018 T4 [Mass/Vol] 7.83 ug/dL Invalid Interpretation Code 5.00-12.00 [facility] TSH Qn 0.47 m[IU]/L Invalid Interpretation Code 0.50-4.00 [facility] Urinalysison 05-30-2018 Protein (U) [Mass/Vol] Negative negative [facility] Metabolic Panelon 02-28-2018 Anion gap [Moles/Vol] 14 mmol/L Invalid Interpretation Code 10-20 [facility] Calcium [Mass/Vol] 9.0 mg/dL Invalid Interpretation Code 8.5-10.8 [facility] Chloride [Moles/Vol] 105 mmol/L Invalid Interpretation Code 100-112 [facility] CO2 [Moles/Vol] 27 mmol/L Invalid Interpretation Code 23-30 [facility] Creatinine [Mass/Vol] 0.80 mg/dL Invalid Interpretation Code 0.5-1.5 [facility] GFR/1.73 sq M predicted among non-blacks MDRD (S/P/Bld) [Vol rate/Area] 71 mL/min/{1.73_m2} Invalid Interpretation Code [facility] Glucose [Mass/Vol] 230.0 mg/dL Invalid Interpretation Code 80-117 [facility] HbA1c (Bld) [Mass fraction] 6.50 % Invalid Interpretation Code 4.3-6.3 [facility] Potassium [Moles/Vol] 4.6 mmol/L Invalid Interpretation Code 3.5-5.3 [facility] Sodium [Moles/Vol] 141 mmol/L Invalid Interpretation Code 135-148 [facility] Urea nitrogen [Mass/Vol] 24.0 mg/dL Invalid Interpretation Code 7-25 [facility] Urea nitrogen/Creatinine [Mass ratio] 30 mg/mg Invalid Interpretation Code 6-20 [facility] Otheron 02-28-2018 Albumin (U) [Mass/Vol] < 12.00 Invalid Interpretation Code < 17.0 ug/mL [facility] 140 [facility] 140.0 mg/dL Invalid Interpretation Code [facility] Urinalysison 02-28-2018 Creatinine (U) [Mass/Vol] 84.60 mg/dL Invalid Interpretation Code Not Estab. mg/dL [facility] 11-29-2017 Cholesterol [Mass/Vol] 264.0 mg/dL Invalid Interpretation Code 0-200 [facility] Cholesterol in HDL [Mass/Vol] 74.0 mg/dL Invalid Interpretation Code 50-100 [facility] Cholesterol in LDL [Mass/Vol] 164.0 mg/dL Invalid Interpretation Code 0-130 [facility] Triglyceride [Mass/Vol] 131.0 mg/dL Invalid Interpretation Code 30-150 [facility] Laboratory - Urinalysison Glucose Test strip (U) [Mass/Vol] Negative Invalid Interpretation Code negative [facility] Protein (U) [Mass/Vol] Negative Invalid Interpretation Code negative [facility] Metabolic Panelon 11-29-2017 Anion gap [Moles/Vol] 14 mmol/L Invalid Interpretation Code 10-20 [facility] Calcium [Mass/Vol] 9.0 mg/dL Invalid Interpretation Code 8.5-10.8 [facility] Chloride [Moles/Vol] 102 mmol/L Invalid Interpretation Code 100-112 [facility] CO2 [Moles/Vol] 29 mmol/L Invalid Interpretation Code 23-30 [facility] Creatinine [Mass/Vol] 0.70 mg/dL Invalid Interpretation Code 0.5-1.5 [facility] GFR/1.73 sq M predicted among non-blacks MDRD (S/P/Bld) [Vol rate/Area] 83 mL/min/{1.73_m2} Invalid Interpretation Code [facility] Glucose [Mass/Vol] 159.0 mg/dL Invalid Interpretation Code 80-117 [facility] HbA1c (Bld) [Mass fraction] 6.70 % Invalid Interpretation Code 4.3-6.3 [facility] Potassium [Moles/Vol] 4.6 mmol/L Invalid Interpretation Code 3.5-5.3 [facility] Sodium [Moles/Vol] 140 mmol/L Invalid Interpretation Code 135-148 [facility] Urea nitrogen [Mass/Vol] 16.0 mg/dL Invalid Interpretation Code 7-25 [facility] Urea nitrogen/Creatinine [Mass ratio] 23 mg/mg Invalid Interpretation Code 6-20 [facility] Otheron 11-29-2017 Albumin (U) [Mass/Vol] < 12.00 Invalid Interpretation Code < 17.0 ug/mL [facility] Cholesterol in VLDL [Mass/Vol] 26.0 mg/dL Invalid Interpretation Code 0-39 [facility] Cholesterol.total/Cho lesterol in HDL [Mass ratio] 4 {ratio} Invalid Interpretation Code [facility] Glucose Test strip (U) [Mass/Vol] Negative negative [facility] pH (U) 7.0 [pH] Invalid Interpretation Code 4.5-7.8 [facility] See Above Invalid Interpretation Code 0-0 [facility] 146 [facility] 146.0 mg/dL Invalid Interpretation Code [facility] Urinalysison 11-29-2017 Creatinine (U) [Mass/Vol] 71.60 mg/dL Invalid Interpretation Code Not Estab. mg/dL [facility] Protein (U) [Mass/Vol] Negative negative [facility] 08-30-2017 Cholesterol [Mass/Vol] 267.0 mg/dL Invalid Interpretation Code 0-200 [facility] Cholesterol in HDL [Mass/Vol] 69.0 mg/dL Invalid Interpretation Code 50-100 [facility] Cholesterol in LDL [Mass/Vol] 169.0 mg/dL Invalid Interpretation Code 0-130 [facility] Triglyceride [Mass/Vol] 147.0 mg/dL Invalid Interpretation Code 30-150 [facility] Laboratory - Urinalysison Glucose Test strip (U) [Mass/Vol] Negative Invalid Interpretation Code negative [facility] Protein (U) [Mass/Vol] Negative Invalid Interpretation Code negative [facility] Metabolic Panelon 08-30-2017 Anion gap [Moles/Vol] 13 mmol/L Invalid Interpretation Code 10-20 [facility] Calcium [Mass/Vol] 9.20 mg/dL Invalid Interpretation Code 8.5-10.8 [facility] Chloride [Moles/Vol] 104 mmol/L Invalid Interpretation Code 100-112 [facility] CO2 [Moles/Vol] 29 mmol/L Invalid Interpretation Code 23-30 [facility] Creatinine [Mass/Vol] 0.70 mg/dL Invalid Interpretation Code 0.5-1.5 [facility] GFR/1.73 sq M predicted among non-blacks MDRD (S/P/Bld) [Vol rate/Area] 83 mL/min/{1.73_m2} Invalid Interpretation Code [facility] Glucose [Mass/Vol] 186.0 mg/dL Invalid Interpretation Code 80-117 [facility] HbA1c (Bld) [Mass fraction] 6.80 % Invalid Interpretation Code 4.3-6.3 [facility] Potassium [Moles/Vol] 4.4 mmol/L Invalid Interpretation Code 3.5-5.3 [facility] Sodium [Moles/Vol] 142 mmol/L Invalid Interpretation Code 135-148 [facility] Urea nitrogen [Mass/Vol] 17.0 mg/dL Invalid Interpretation Code 7-25 [facility] Urea nitrogen/Creatinine [Mass ratio] 24 mg/mg Invalid Interpretation Code 6-20 [facility] Otheron 08-30-2017 Albumin (U) [Mass/Vol] < 12.00 Invalid Interpretation Code < 17.0 ug/mL [facility] Cholesterol in VLDL [Mass/Vol] 29.0 mg/dL Invalid Interpretation Code 0-39 [facility] Cholesterol.total/Cho lesterol in HDL [Mass ratio] 4 {ratio} Invalid Interpretation Code [facility] Glucose Test strip (U) [Mass/Vol] Negative negative [facility] pH (U) 7.5 [pH] Invalid Interpretation Code 4.5-7.8 [facility] 148 [facility] See Above Invalid Interpretation Code 0-0 [facility] 148.0 mg/dL Invalid Interpretation Code [facility] Thyroidon 08-30-2017 T4 [Mass/Vol] 7.42 ug/dL Invalid Interpretation Code 5.00-12.00 [facility] TSH Qn 0.53 m[IU]/L Invalid Interpretation Code 0.50-4.00 [facility] Urinalysison 08-30-2017 Creatinine (U) [Mass/Vol] 28.10 mg/dL Invalid Interpretation Code Not Estab. mg/dL [facility] Protein (U) [Mass/Vol] Negative negative [facility] 05-29-2017 Cholesterol [Mass/Vol] 290.0 mg/dL Invalid Interpretation Code 0-200 [facility] Cholesterol in HDL [Mass/Vol] 76.0 mg/dL Invalid Interpretation Code 50-100 [facility] Cholesterol in LDL [Mass/Vol] 179.0 mg/dL Invalid Interpretation Code 0-130 [facility] Triglyceride [Mass/Vol] 174.0 mg/dL Invalid Interpretation Code 30-150 [facility] Laboratory - Urinalysison Glucose Test strip (U) [Mass/Vol] Negative Invalid Interpretation Code negative [facility] Protein (U) [Mass/Vol] Negative Invalid Interpretation Code negative [facility] Metabolic Panelon 05-29-2017 Anion gap [Moles/Vol] 16 mmol/L Invalid Interpretation Code 10-20 [facility] Calcium [Mass/Vol] 9.0 mg/dL Invalid Interpretation Code 8.5-10.8 [facility] Chloride [Moles/Vol] 100 mmol/L Invalid Interpretation Code 100-112 [facility] CO2 [Moles/Vol] 30 mmol/L Invalid Interpretation Code 23-30 [facility] Creatinine [Mass/Vol] 0.90 mg/dL Invalid Interpretation Code 0.5-1.5 [facility] GFR/1.73 sq M predicted among non-blacks MDRD (S/P/Bld) [Vol rate/Area] 62 mL/min/{1.73_m2} Invalid Interpretation Code [facility] Glucose [Mass/Vol] 111.0 mg/dL Invalid Interpretation Code 80-117 [facility] HbA1c (Bld) [Mass fraction] 6.50 % Invalid Interpretation Code 4.3-6.3 [facility] Potassium [Moles/Vol] 4.8 mmol/L Invalid Interpretation Code 3.5-5.3 [facility] Sodium [Moles/Vol] 141 mmol/L Invalid Interpretation Code 135-148 [facility] Urea nitrogen [Mass/Vol] 16.0 mg/dL Invalid Interpretation Code 7-25 [facility] Urea nitrogen/Creatinine [Mass ratio] 18 mg/mg Invalid Interpretation Code 6-20 [facility] Otheron 05-29-2017 Albumin (U) [Mass/Vol] < 12.00 Invalid Interpretation Code < 17.0 ug/mL [facility] Cholesterol in VLDL [Mass/Vol] 35.0 mg/dL Invalid Interpretation Code 0-39 [facility] Cholesterol.total/Cho lesterol in HDL [Mass ratio] 4 {ratio} Invalid Interpretation Code [facility] Glucose Test strip (U) [Mass/Vol] Negative negative [facility] pH (U) 7.0 [pH] Invalid Interpretation Code 4.5-7.8 [facility] See Above Invalid Interpretation Code 0-0 [facility] 140 [facility] 140.0 mg/dL Invalid Interpretation Code [facility] Urinalysison 05-29-2017 Creatinine (U) [Mass/Vol] 45.60 mg/dL Invalid Interpretation Code Not Estab. mg/dL [facility] Protein (U) [Mass/Vol] Negative negative [facility] - Urinalysison Glucose Test strip (U) [Mass/Vol] Negative Invalid Interpretation Code negative [facility] Protein (U) [Mass/Vol] Negative Invalid Interpretation Code negative [facility] Metabolic Panelon 03-01-2017 Anion gap [Moles/Vol] 14 mmol/L Invalid Interpretation Code 10-20 [facility] Calcium [Mass/Vol] 8.90 mg/dL Invalid Interpretation Code 8.5-10.8 [facility] Chloride [Moles/Vol] 105 mmol/L Invalid Interpretation Code 100-112 [facility] CO2 [Moles/Vol] 28 mmol/L Invalid Interpretation Code 23-30 [facility] Creatinine [Mass/Vol] 0.70 mg/dL Invalid Interpretation Code 0.5-1.5 [facility] GFR/1.73 sq M predicted among non-blacks MDRD (S/P/Bld) [Vol rate/Area] 83 mL/min/{1.73_m2} Invalid Interpretation Code [facility] Glucose [Mass/Vol] 149.0 mg/dL Invalid Interpretation Code 80-117 [facility] HbA1c (Bld) [Mass fraction] 6.50 % Invalid Interpretation Code 4.3-6.3 [facility] Potassium [Moles/Vol] 4.5 mmol/L Invalid Interpretation Code 3.5-5.3 [facility] Sodium [Moles/Vol] 142 mmol/L Invalid Interpretation Code 135-148 [facility] Urea nitrogen [Mass/Vol] 15.0 mg/dL Invalid Interpretation Code 7-25 [facility] Urea nitrogen/Creatinine [Mass ratio] 21 mg/mg Invalid Interpretation Code 6-20 [facility] Otheron 03-01-2017 Albumin (U) [Mass/Vol] < 12.00 Invalid Interpretation Code < 17.0 ug/mL [facility] Glucose Test strip (U) [Mass/Vol] Negative negative [facility] pH (U) 7.0 [pH] Invalid Interpretation Code 4.5-7.8 [facility] See Above Invalid Interpretation Code 0-0 [facility] 140 [facility] 140.0 mg/dL Invalid Interpretation Code [facility] Urinalysison 03-01-2017 Creatinine (U) [Mass/Vol] 111.80 mg/dL Invalid Interpretation Code Not Estab. mg/dL [facility] Protein (U) [Mass/Vol] Negative negative [facility] 11-16-2016 Cholesterol [Mass/Vol] 263.0 mg/dL Invalid Interpretation Code 0-200 [facility] Cholesterol in HDL [Mass/Vol] 80.0 mg/dL Invalid Interpretation Code 50-100 [facility] Cholesterol in LDL [Mass/Vol] 157.0 mg/dL Invalid Interpretation Code 0-130 [facility] Triglyceride [Mass/Vol] 129.0 mg/dL Invalid Interpretation Code 30-150 [facility] - Urinalysison Glucose Test strip (U) [Mass/Vol] Negative Invalid Interpretation Code negative [facility] Protein (U) [Mass/Vol] Negative Invalid Interpretation Code negative [facility] Metabolic Panelon 11-16-2016 Glucose [Mass/Vol] 155.0 mg/dL Invalid Interpretation Code 80-117 [facility] HbA1c (Bld) [Mass fraction] 6.30 % Invalid Interpretation Code 4.3-6.3 [facility] Otheron 11-16-2016 Cholesterol in VLDL [Mass/Vol] 26.0 mg/dL Invalid Interpretation Code 0-39 [facility] Cholesterol.total/Cho lesterol in HDL [Mass ratio] 3 {ratio} Invalid Interpretation Code [facility] Glucose Test strip (U) [Mass/Vol] Negative negative [facility] pH (U) 7.0 [pH] Invalid Interpretation Code 4.5-7.8 [facility] See Above Invalid Interpretation Code 0-0 [facility] 134 [facility] 134.0 mg/dL Invalid Interpretation Code [facility] Urinalysison 11-16-2016 Protein (U) [Mass/Vol] Negative negative [facility] - Urinalysison Glucose Test strip (U) [Mass/Vol] Negative Invalid Interpretation Code negative [facility] Protein (U) [Mass/Vol] Negative Invalid Interpretation Code negative [facility] Metabolic Panelon 08-17-2016 Anion gap [Moles/Vol] 17 mmol/L Invalid Interpretation Code 10-20 [facility] Calcium [Mass/Vol] 9.30 mg/dL Invalid Interpretation Code 8.5-10.8 [facility] Chloride [Moles/Vol] 101 mmol/L Invalid Interpretation Code 100-112 [facility] CO2 [Moles/Vol] 29 mmol/L Invalid Interpretation Code 23-30 [facility] Creatinine [Mass/Vol] 0.70 mg/dL Invalid Interpretation Code 0.5-1.5 [facility] GFR/1.73 sq M predicted among non-blacks MDRD (S/P/Bld) [Vol rate/Area] 83 mL/min/{1.73_m2} Invalid Interpretation Code [facility] Glucose [Mass/Vol] 276.0 mg/dL Invalid Interpretation Code 80-117 [facility] HbA1c (Bld) [Mass fraction] 6.60 % Invalid Interpretation Code 4.3-6.3 [facility] Potassium [Moles/Vol] 5.2 mmol/L Invalid Interpretation Code 3.5-5.3 [facility] Sodium [Moles/Vol] 142 mmol/L Invalid Interpretation Code 135-148 [facility] Urea nitrogen [Mass/Vol] 16.0 mg/dL Invalid Interpretation Code 7-25 [facility] Urea nitrogen/Creatinine [Mass ratio] 23 mg/mg Invalid Interpretation Code 6-20 [facility] Otheron 08-17-2016 Albumin (U) [Mass/Vol] < 12.00 Invalid Interpretation Code < 17.0 ug/mL [facility] Glucose Test strip (U) [Mass/Vol] Negative negative [facility] pH (U) 7.0 [pH] Invalid Interpretation Code 4.5-7.8 [facility] 143 [facility] 143.0 mg/dL Invalid Interpretation Code [facility] Thyroidon 08-17-2016 T4 [Mass/Vol] 7.43 ug/dL Invalid Interpretation Code 5.00-12.00 [facility] TSH Qn 0.31 m[IU]/L Invalid Interpretation Code 0.50-4.00 [facility] Urinalysison 08-17-2016 Creatinine (U) [Mass/Vol] 51.10 mg/dL Invalid Interpretation Code Not Estab. mg/dL [facility] Protein (U) [Mass/Vol] Negative negative [facility] 05-11-2016 Cholesterol [Mass/Vol] 262.0 mg/dL Invalid Interpretation Code 0-200 [facility] Cholesterol in HDL [Mass/Vol] 92.0 mg/dL Invalid Interpretation Code 50-100 [facility] Cholesterol in LDL [Mass/Vol] 153.0 mg/dL Invalid Interpretation Code 0-130 [facility] Triglyceride [Mass/Vol] 85.0 mg/dL Invalid Interpretation Code 30-150 [facility] - Urinalysison Glucose Test strip (U) [Mass/Vol] Negative Invalid Interpretation Code negative [facility] Protein (U) [Mass/Vol] Negative Invalid Interpretation Code negative [facility] Metabolic Panelon 05-11-2016 ALT [Catalytic activity/Vol] 54.0 U/L Invalid Interpretation Code 0-50 [facility] Glucose [Mass/Vol] 199.0 mg/dL Invalid Interpretation Code 80-117 [facility] HbA1c (Bld) [Mass fraction] 6.20 % Invalid Interpretation Code 4.3-6.3 [facility] Otheron 05-11-2016 Albumin (U) [Mass/Vol] < 12.00 Invalid Interpretation Code < 4.0-17.0 [facility] Cholesterol in VLDL [Mass/Vol] 17.0 mg/dL Invalid Interpretation Code 0-39 [facility] Cholesterol.total/Cho lesterol in HDL [Mass ratio] 3 {ratio} Invalid Interpretation Code [facility] Glucose Test strip (U) [Mass/Vol] Negative negative [facility] pH (U) 7.0 [pH] Invalid Interpretation Code 4.5-7.8 [facility] 131 [facility] See Above Invalid Interpretation Code 0-0 [facility] 54.0 U/L 0-50 [facility] 131.0 mg/dL Invalid Interpretation Code [facility] Urinalysison 05-11-2016 Creatinine (U) [Mass/Vol] 29.0 mg/dL Invalid Interpretation Code Not Estab. mg/dL [facility] Protein (U) [Mass/Vol] Negative negative [facility] 02-10-2016 Cholesterol [Mass/Vol] 240.0 mg/dL Invalid Interpretation Code 0-200 [facility] Cholesterol in HDL [Mass/Vol] 68.0 mg/dL Invalid Interpretation Code 50-100 [facility] Cholesterol in LDL [Mass/Vol] 144.0 mg/dL Invalid Interpretation Code 0-130 [facility] Triglyceride [Mass/Vol] 138.0 mg/dL Invalid Interpretation Code 30-150 [facility] Laboratory - Chemistry and C hemistry - challengeon 02-10-2016 Bilirubin Ql (U) Negative Invalid Interpretation Code Negative [facility] Ketones Ql (U) Negative Invalid Interpretation Code Negative [facility] Urobilinogen (U) [Mass/Vol] normal Invalid Interpretation Code normal [facility] - Urinalysison Nitrite Ql (U) Negative Invalid Interpretation Code Negative [facility] Protein Ql (U) Negative Invalid Interpretation Code Negative [facility] Metabolic Panelon 02-10-2016 Anion gap [Moles/Vol] 16 mmol/L Invalid Interpretation Code 10-20 [facility] Calcium [Mass/Vol] 8.80 mg/dL Invalid Interpretation Code 8.5-10.8 [facility] Chloride [Moles/Vol] 99 mmol/L Invalid Interpretation Code 100-112 [facility] CO2 [Moles/Vol] 25 mmol/L Invalid Interpretation Code 23-30 [facility] Creatinine [Mass/Vol] 0.60 mg/dL Invalid Interpretation Code 0.5-1.5 [facility] GFR/1.73 sq M predicted among non-blacks MDRD (S/P/Bld) [Vol rate/Area] 100 mL/min/{1.73_m2} Invalid Interpretation Code [facility] Glucose [Mass/Vol] 272.0 mg/dL Invalid Interpretation Code 80-117 [facility] HbA1c (Bld) [Mass fraction] 6.20 % Invalid Interpretation Code 4.3-6.3 [facility] Potassium [Moles/Vol] 4.4 mmol/L Invalid Interpretation Code 3.5-5.3 [facility] Sodium [Moles/Vol] 136 mmol/L Invalid Interpretation Code 135-148 [facility] Urea nitrogen [Mass/Vol] 15.0 mg/dL Invalid Interpretation Code 7-25 [facility] Urea nitrogen/Creatinine [Mass ratio] 25 mg/mg Invalid Interpretation Code 6-20 [facility] Otheron 02-10-2016 Albumin (U) [Mass/Vol] < 12.00 Invalid Interpretation Code < 4.0-17.0 [facility] Bilirubin Ql (U) Negative Negative [facility] [place] Cholesterol in VLDL [Mass/Vol] 28.0 mg/dL Invalid Interpretation Code 0-39 [facility] Cholesterol.total/Cho lesterol in HDL [Mass ratio] 4 {ratio} Invalid Interpretation Code [facility] Glucose Test strip (U) [Mass/Vol] 2+ Invalid Interpretation Code Negative [facility] Hemoglobin Ql (U) Trace Invalid Interpretation Code Negative [facility] Nitrite Ql (U) Negative Negative [facility] pH (U) 6.5 [pH] Invalid Interpretation Code 4.5-7.8 [facility] Protein Ql (U) Negative Negative [facility] Urobilinogen Test strip (U) [Mass/Vol] normal normal [facility] See Above Invalid Interpretation Code 0-0 [facility] 131 [facility] 131.0 mg/dL Invalid Interpretation Code [facility] Urinalysison 02-10-2016 Clarity (U) clear Invalid Interpretation Code Clear [facility] Color (U) yellow Invalid Interpretation Code yellow [facility] Creatinine (U) [Mass/Vol] 51.60 mg/dL Invalid Interpretation Code Not Estab. mg/dL [facility] Ketones Ql (U) Negative Negative [facility] Leukocyte esterase Test strip Ql (U) Trace Invalid Interpretation Code Negative [facility] Specific gravity (U) [Rel density] 1.010 Invalid Interpretation Code 1.003-1.029 [facility] 11-11-2015 Cholesterol [Mass/Vol] 255.0 mg/dL Invalid Interpretation Code 0-200 [facility] Cholesterol in HDL [Mass/Vol] 68.0 mg/dL Invalid Interpretation Code 50-100 [facility] Cholesterol in LDL [Mass/Vol] 151.0 mg/dL Invalid Interpretation Code 0-130 [facility] Triglyceride [Mass/Vol] 181.0 mg/dL Invalid Interpretation Code 30-150 [facility] - Urinalysison Glucose Test strip (U) [Mass/Vol] Negative Invalid Interpretation Code negative [facility] Metabolic Panelon 11-11-2015 Anion gap [Moles/Vol] 16 mmol/L Invalid Interpretation Code 10-20 [facility] Calcium [Mass/Vol] 9.30 mg/dL Invalid Interpretation Code 8.5-10.8 [facility] Chloride [Moles/Vol] 101 mmol/L Invalid Interpretation Code 100-112 [facility] CO2 [Moles/Vol] 27 mmol/L Invalid Interpretation Code 23-30 [facility] Creatinine [Mass/Vol] 0.70 mg/dL Invalid Interpretation Code 0.5-1.5 [facility] GFR/1.73 sq M predicted among non-blacks MDRD (S/P/Bld) [Vol rate/Area] 83 mL/min/{1.73_m2} Invalid Interpretation Code [facility] Glucose [Mass/Vol] 112.0 mg/dL Invalid Interpretation Code 80-117 [facility] HbA1c (Bld) [Mass fraction] 6.40 % Invalid Interpretation Code 4.3-6.3 [facility] Potassium [Moles/Vol] 4.8 mmol/L Invalid Interpretation Code 3.5-5.3 [facility] Sodium [Moles/Vol] 139 mmol/L Invalid Interpretation Code 135-148 [facility] Urea nitrogen [Mass/Vol] 13.0 mg/dL Invalid Interpretation Code 7-25 [facility] Urea nitrogen/Creatinine [Mass ratio] 19 mg/mg Invalid Interpretation Code 6-20 [facility] Otheron 11-11-2015 Albumin (U) [Mass/Vol] 21.7 Invalid Interpretation Code 0.0-17.0 [facility] Cholesterol in VLDL [Mass/Vol] 36.0 mg/dL Invalid Interpretation Code 0-39 [facility] Cholesterol.total/Cho lesterol in HDL [Mass ratio] 4 {ratio} Invalid Interpretation Code [facility] Glucose Test strip (U) [Mass/Vol] Negative negative [facility] pH (U) 6.0 [pH] Invalid Interpretation Code 4.5-7.8 [facility] 137 [facility] See Above Invalid Interpretation Code 0-0 [facility] 137.0 mg/dL Invalid Interpretation Code [facility] Thyroidon 11-11-2015 T4 [Mass/Vol] 10.22 ug/dL Invalid Interpretation Code 5.00-12.00 [facility] TSH Qn 1.72 m[IU]/L Invalid Interpretation Code 0.50-4.00 [facility] Urinalysison 11-11-2015 Albumin/Creatinine DL <= 20 mg/L (U) [Mass ratio] 7.7 mg/g Invalid Interpretation Code 0.0-30.0 [facility] Creatinine (U) [Mass/Vol] 280.10 mg/dL Invalid Interpretation Code Not Estab. mg/dL [facility] Protein (U) [Mass/Vol] trace Invalid Interpretation Code negative [facility] 08-05-2015 Cholesterol [Mass/Vol] 285.0 mg/dL Invalid Interpretation Code 0-200 [facility] Cholesterol in HDL [Mass/Vol] 57.0 mg/dL Invalid Interpretation Code 50-100 [facility] Cholesterol in LDL [Mass/Vol] 195.0 mg/dL Invalid Interpretation Code 0-130 [facility] Triglyceride [Mass/Vol] 164.0 mg/dL Invalid Interpretation Code 30-150 [facility] - Urinalysison Glucose Test strip (U) [Mass/Vol] Negative Invalid Interpretation Code negative [facility] Protein (U) [Mass/Vol] Negative Invalid Interpretation Code negative [facility] Metabolic Panelon 08-05-2015 Glucose [Mass/Vol] 166.0 mg/dL Invalid Interpretation Code 80-117 [facility] HbA1c (Bld) [Mass fraction] 6.0 % Invalid Interpretation Code 4.3-6.3 [facility] Otheron 08-05-2015 Albumin (U) [Mass/Vol] < 12.00 Invalid Interpretation Code < 4.0-17.0 [facility] Cholesterol in VLDL [Mass/Vol] 33.0 mg/dL Invalid Interpretation Code 0-39 [facility] Cholesterol.total/Cho lesterol in HDL [Mass ratio] 5 {ratio} Invalid Interpretation Code [facility] Glucose Test strip (U) [Mass/Vol] Negative negative [facility] pH (U) 6.5 [pH] Invalid Interpretation Code 4.5-7.8 [facility] See Above Invalid Interpretation Code 0-0 [facility] 126 [facility] 126.0 mg/dL Invalid Interpretation Code [facility] Urinalysison 08-05-2015 Creatinine (U) [Mass/Vol] 65.30 mg/dL Invalid Interpretation Code Not Estab. mg/dL [facility] Protein (U) [Mass/Vol] Negative negative [facility] - Urinalysison Glucose Test strip (U) [Mass/Vol] Negative Invalid Interpretation Code negative [facility] Protein (U) [Mass/Vol] Negative Invalid Interpretation Code negative [facility] Metabolic Panelon 04-22-2015 Anion gap [Moles/Vol] 18 mmol/L Invalid Interpretation Code 10- [facility] Calcium [Mass/Vol] 9.20 mg/dL Invalid Interpretation Code 8.5-10.8 [facility] Chloride [Moles/Vol] 97 mmol/L Invalid Interpretation Code 100-112 [facility] CO2 [Moles/Vol] 26 mmol/L Invalid Interpretation Code 23-30 [facility] Creatinine [Mass/Vol] 0.70 mg/dL Invalid Interpretation Code 0.5-1.5 [facility] GFR/1.73 sq M predicted among non-blacks MDRD (S/P/Bld) [Vol rate/Area] 84 mL/min/{1.73_m2} Invalid Interpretation Code [facility] Glucose [Mass/Vol] 151.0 mg/dL Invalid Interpretation Code 80-117 [facility] HbA1c (Bld) [Mass fraction] 7.10 % Invalid Interpretation Code 4.3-6.3 [facility] Potassium [Moles/Vol] 4.4 mmol/L Invalid Interpretation Code 3.5-5.3 [facility] Sodium [Moles/Vol] 137 mmol/L Invalid Interpretation Code 135-148 [facility] Urea nitrogen [Mass/Vol] 14.0 mg/dL Invalid Interpretation Code 7-25 [facility] Urea nitrogen/Creatinine [Mass ratio] 20 mg/mg Invalid Interpretation Code 6-20 [facility] Otheron 04-22-2015 Glucose Test strip (U) [Mass/Vol] Negative negative [facility] pH (U) 6.0 [pH] Invalid Interpretation Code 4.5-7.8 [facility] See Above Invalid Interpretation Code 0-0 [facility] 157 [facility] 157.0 mg/dL Invalid Interpretation Code [facility] Thyroidon 04-22-2015 T4 [Mass/Vol] 9.22 ug/dL Invalid Interpretation Code 5.00-12.00 [facility] TSH Qn 3.12 m[IU]/L Invalid Interpretation Code 0.50-4.00 [facility] Urinalysison 04-22-2015 Protein (U) [Mass/Vol] Negative negative [facility] 01-20-2015 Cholesterol [Mass/Vol] 270.0 mg/dL Invalid Interpretation Code 0-200 [facility] Cholesterol in HDL [Mass/Vol] 53.0 mg/dL Invalid Interpretation Code 50-100 [facility] Cholesterol in LDL [Mass/Vol] 181.0 mg/dL Invalid Interpretation Code 0-130 [facility] Triglyceride [Mass/Vol] 182.0 mg/dL Invalid Interpretation Code 30-150 [facility] - Urinalysison Glucose Test strip (U) [Mass/Vol] Negative Invalid Interpretation Code negative [facility] Protein (U) [Mass/Vol] Negative Invalid Interpretation Code negative [facility] Metabolic Panelon 01-20-2015 ALT [Catalytic activity/Vol] 21.0 U/L Invalid Interpretation Code 0-50 [facility] Anion gap [Moles/Vol] 16 mmol/L Invalid Interpretation Code 10-20 [facility] Calcium [Mass/Vol] 9.10 mg/dL Invalid Interpretation Code 8.5-10.8 [facility] Chloride [Moles/Vol] 102 mmol/L Invalid Interpretation Code 100-112 [facility] CO2 [Moles/Vol] 26 mmol/L Invalid Interpretation Code 23-30 [facility] Creatinine [Mass/Vol] 1.0 mg/dL Invalid Interpretation Code 0.5-1.5 [facility] GFR/1.73 sq M predicted among non-blacks MDRD (S/P/Bld) [Vol rate/Area] 55 mL/min/{1.73_m2} Invalid Interpretation Code [facility] Glucose [Mass/Vol] 152.0 mg/dL Invalid Interpretation Code 80-117 [facility] HbA1c (Bld) [Mass fraction] 7.20 % Invalid Interpretation Code 4.3-6.3 [facility] Potassium [Moles/Vol] 5.2 mmol/L Invalid Interpretation Code 3.5-5.3 [facility] Sodium [Moles/Vol] 139 mmol/L Invalid Interpretation Code 135-148 [facility] Urea nitrogen [Mass/Vol] 18.0 mg/dL Invalid Interpretation Code 7-25 [facility] Urea nitrogen/Creatinine [Mass ratio] 18 mg/mg Invalid Interpretation Code 6-20 [facility] Otheron 01-20-2015 Albumin (U) [Mass/Vol] < 12.00 Invalid Interpretation Code < 4.0-17.0 [facility] Cholesterol in VLDL [Mass/Vol] 36.0 mg/dL Invalid Interpretation Code 0-39 [facility] Cholesterol.total/Cho lesterol in HDL [Mass ratio] 5 {ratio} Invalid Interpretation Code [facility] Glucose Test strip (U) [Mass/Vol] Negative negative [facility] pH (U) 7.0 [pH] Invalid Interpretation Code 4.5-7.8 [facility] See Above Invalid Interpretation Code 0-0 [facility] 160.0 mg/dL Invalid Interpretation Code [facility] 21.0 U/L 0-50 [facility] Urinalysison 01-20-2015 Creatinine (U) [Mass/Vol] 57.10 mg/dL Invalid Interpretation Code Not Estab. mg/dL [facility] Protein (U) [Mass/Vol] Negative negative [facility] 09-22-2014 Cholesterol [Mass/Vol] 259.0 mg/dL Invalid Interpretation Code 0-200 [facility] Cholesterol in HDL [Mass/Vol] 73.0 mg/dL Invalid Interpretation Code 50-100 [facility] Cholesterol in LDL [Mass/Vol] 164.0 mg/dL Invalid Interpretation Code 0-130 [facility] Triglyceride [Mass/Vol] 111.0 mg/dL Invalid Interpretation Code 30-150 [facility] Laboratory - Chemistry and C hemistry - challengeon 09-22-2014 ALT [Catalytic activity/Vol] U/L Invalid Interpretation Code 0-50 [facility] - Urinalysison Glucose Test strip (U) [Mass/Vol] Negative Invalid Interpretation Code negative [facility] Protein (U) [Mass/Vol] Negative Invalid Interpretation Code negative [facility] Metabolic Panelon 09-22-2014 ALT [Catalytic activity/Vol] U/L 0-50 [facility] Anion gap [Moles/Vol] 15 mmol/L Invalid Interpretation Code 10-20 [facility] Calcium [Mass/Vol] 9.10 mg/dL Invalid Interpretation Code 8.5-10.8 [facility] Chloride [Moles/Vol] 107 mmol/L Invalid Interpretation Code 100-112 [facility] CO2 [Moles/Vol] 28 mmol/L Invalid Interpretation Code 23-30 [facility] Creatinine [Mass/Vol] 0.70 mg/dL Invalid Interpretation Code 0.5-1.5 [facility] GFR/1.73 sq M predicted among non-blacks MDRD (S/P/Bld) [Vol rate/Area] 84 mL/min/{1.73_m2} Invalid Interpretation Code [facility] Glucose [Mass/Vol] 132.0 mg/dL Invalid Interpretation Code 80-117 [facility] HbA1c (Bld) [Mass fraction] 6.50 % Invalid Interpretation Code 4.3-6.3 [facility] Potassium [Moles/Vol] 4.6 mmol/L Invalid Interpretation Code 3.5-5.3 [facility] Sodium [Moles/Vol] 145 mmol/L Invalid Interpretation Code 135-148 [facility] Urea nitrogen [Mass/Vol] 22.0 mg/dL Invalid Interpretation Code 7-25 [facility] Urea nitrogen/Creatinine [Mass ratio] 31 mg/mg Invalid Interpretation Code 6-20 [facility] Otheron 09-22-2014 Albumin (U) [Mass/Vol] < 12.00 Invalid Interpretation Code < 4.0-17.0 [facility] Cholesterol in VLDL [Mass/Vol] 22.0 mg/dL Invalid Interpretation Code 0-39 [facility] Cholesterol.total/Cho lesterol in HDL [Mass ratio] 4 {ratio} Invalid Interpretation Code [facility] Glucose Test strip (U) [Mass/Vol] Negative negative [facility] pH (U) 6.0 [pH] Invalid Interpretation Code 4.5-7.8 [facility] See Above Invalid Interpretation Code 0-0 [facility] 140.0 mg/dL Invalid Interpretation Code [facility] < 5.0 0-50 [facility] Thyroidon 09-22-2014 T4 [Mass/Vol] 8.14 ug/dL Invalid Interpretation Code 5.00-12.00 [facility] TSH Qn 0.94 m[IU]/L Invalid Interpretation Code 0.50-4.00 [facility] Urinalysison 09-22-2014 Creatinine (U) [Mass/Vol] 185.60 mg/dL Invalid Interpretation Code Not Estab. mg dL [facility] Protein (U) [Mass/Vol] Negative negative [facility] 06-16-2014 Cholesterol [Mass/Vol] 261.0 mg/dL Invalid Interpretation Code 0-200 [facility] Cholesterol in HDL [Mass/Vol] 67.0 mg/dL Invalid Interpretation Code 50-100 [facility] Cholesterol in LDL [Mass/Vol] 170.0 mg/dL Invalid Interpretation Code 0-130 [facility] Triglyceride [Mass/Vol] 121.0 mg/dL Invalid Interpretation Code 30-150 [facility] Laboratory - Chemistry and C hemistry - challengeon 06-16-2014 Bilirubin Ql (U) Negative Invalid Interpretation Code Negative [facility] Ketones Ql (U) Negative Invalid Interpretation Code Negative [facility] Urobilinogen (U) [Mass/Vol] normal Invalid Interpretation Code normal [facility] - Urinalysison Leukocyte esterase Test strip Ql (U) Negative Invalid Interpretation Code Negative [facility] Nitrite Ql (U) Negative Invalid Interpretation Code Negative [facility] Protein Ql (U) Negative Invalid Interpretation Code Negative [facility] Metabolic Panelon 06-16-2014 Anion gap [Moles/Vol] 13 mmol/L Invalid Interpretation Code 10-20 [facility] Calcium [Mass/Vol] 9.30 mg/dL Invalid Interpretation Code 8.5-10.8 [facility] Chloride [Moles/Vol] 105 mmol/L Invalid Interpretation Code 100-112 [place] CO2 [Moles/Vol] 29 mmol/L Invalid Interpretation Code 23-30 [facility] Creatinine [Mass/Vol] 0.70 mg/dL Invalid Interpretation Code 0.5-1.5 [facility] GFR/1.73 sq M predicted among non-blacks MDRD (S/P/Bld) [Vol rate/Area] 84 mL/min/{1.73_m2} Invalid Interpretation Code [facility] Glucose [Mass/Vol] 58.0 mg/dL Invalid Interpretation Code 80-117 [facility] HbA1c (Bld) [Mass fraction] 7.0 % Invalid Interpretation Code 4.3-6.3 [facility] Potassium [Moles/Vol] 4.2 mmol/L Invalid Interpretation Code 3.5-5.3 [facility] Sodium [Moles/Vol] 143 mmol/L Invalid Interpretation Code 135-148 [place] Urea nitrogen [Mass/Vol] 14.0 mg/dL Invalid Interpretation Code 7-25 [facility] Urea nitrogen/Creatinine [Mass ratio] 20 mg/mg Invalid Interpretation Code 6-20 [facility] Otheron 06-16-2014 Albumin (U) [Mass/Vol] < 12.00 Invalid Interpretation Code < 4.0-17.0 [facility] Bilirubin Ql (U) Negative Negative [facility] Cholesterol in VLDL [Mass/Vol] 24.0 mg/dL Invalid Interpretation Code 0-39 [facility] Cholesterol.total/Cho lesterol in HDL [Mass ratio] 4 {ratio} Invalid Interpretation Code [facility] Glucose Test strip (U) [Mass/Vol] 4+ Invalid Interpretation Code Negative [facility] Hemoglobin Ql (U) Trace Invalid Interpretation Code Negative [facility] Nitrite Ql (U) Negative Negative [facility] pH (U) 7 [pH] Invalid Interpretation Code 4.5-7.8 [facility] Protein Ql (U) Negative Negative [facility] Urobilinogen Test strip (U) [Mass/Vol] normal normal [facility] See Above Invalid Interpretation Code 0-0 [facility] 154.0 mg/dL Invalid Interpretation Code [facility] Thyroidon 06-16-2014 T4 [Mass/Vol] 9.22 ug/dL Invalid Interpretation Code 5.00-12.00 [facility] TSH Qn 0.76 m[IU]/L Invalid Interpretation Code 0.50-4.00 [facility] Urinalysison 06-16-2014 Clarity (U) clear Invalid Interpretation Code Clear [facility] Color (U) yellow Invalid Interpretation Code yellow [facility] Creatinine (U) [Mass/Vol] 49.80 mg/dL Invalid Interpretation Code Not Estab. mg dL [facility] Ketones Ql (U) Negative Negative [facility] Leukocyte esterase Test strip Ql (U) Negative Negative [facility] Specific gravity (U) [Rel density] 1.010 Invalid Interpretation Code 1.003-1.029 [facility] 03-17-2014 Cholesterol [Mass/Vol] 253.0 mg/dL Invalid Interpretation Code 0-200 [facility] Cholesterol in HDL [Mass/Vol] 68.0 mg/dL Invalid Interpretation Code 50-100 [facility] Cholesterol in LDL [Mass/Vol] 168.0 mg/dL Invalid Interpretation Code 0-130 [facility] Triglyceride [Mass/Vol] 84.0 mg/dL Invalid Interpretation Code 30-150 [facility] Laboratory - Urinalysison Glucose Test strip (U) [Mass/Vol] Negative Invalid Interpretation Code negative [facility] Protein (U) [Mass/Vol] Negative Invalid Interpretation Code negative [facility] Metabolic Panelon 03-17-2014 Anion gap [Moles/Vol] 8 mmol/L Invalid Interpretation Code 10-20 [facility] Calcium [Mass/Vol] 9.10 mg/dL Invalid Interpretation Code 8.5-10.8 [facility] Chloride [Moles/Vol] 103 mmol/L Invalid Interpretation Code 100-112 [facility] CO2 [Moles/Vol] 32 mmol/L Invalid Interpretation Code 23-30 [facility] Creatinine [Mass/Vol] 0.70 mg/dL Invalid Interpretation Code 0.5-1.5 [facility] GFR/1.73 sq M predicted among non-blacks MDRD (S/P/Bld) [Vol rate/Area] 84 mL/min/{1.73_m2} Invalid Interpretation Code [facility] Glucose [Mass/Vol] 161.0 mg/dL Invalid Interpretation Code 80-117 [facility] HbA1c (Bld) [Mass fraction] 6.20 % Invalid Interpretation Code 4.3-6.3 [facility] Potassium [Moles/Vol] 4.4 mmol/L Invalid Interpretation Code 3.5-5.3 [facility] Sodium [Moles/Vol] 139 mmol/L Invalid Interpretation Code 135-148 [facility] Urea nitrogen [Mass/Vol] 21.0 mg/dL Invalid Interpretation Code 7-25 [facility] Urea nitrogen/Creatinine [Mass ratio] 30 mg/mg Invalid Interpretation Code 6-20 [facility] Otheron 03-17-2014 Albumin (U) [Mass/Vol] < 12.00 Invalid Interpretation Code < 4.0-17.0 [facility] Cholesterol in VLDL [Mass/Vol] 17.0 mg/dL Invalid Interpretation Code 0-39 [facility] Cholesterol.total/Cho lesterol in HDL [Mass ratio] 4 {ratio} Invalid Interpretation Code [facility] Glucose Test strip (U) [Mass/Vol] Negative negative [facility] pH (U) 7.0 [pH] Invalid Interpretation Code 4.5-7.8 [facility] 131.0 mg/dL Invalid Interpretation Code [facility] See Above Invalid Interpretation Code 0-0 [facility] Urinalysison 03-17-2014 Creatinine (U) [Mass/Vol] 70.80 mg/dL Invalid Interpretation Code Not Estab. mg dL [facility] Protein (U) [Mass/Vol] Negative negative [facility] 12-16-2013 Cholesterol [Mass/Vol] 241.0 mg/dL Invalid Interpretation Code 0-200 [facility] Cholesterol in HDL [Mass/Vol] 57.0 mg/dL Invalid Interpretation Code 50-100 [facility] Cholesterol in LDL [Mass/Vol] 162.0 mg/dL Invalid Interpretation Code 0-130 [facility] Triglyceride [Mass/Vol] 108.0 mg/dL Invalid Interpretation Code 30-150 [facility] Laboratory - Urinalysison Glucose Test strip (U) [Mass/Vol] Negative Invalid Interpretation Code negative [facility] Protein (U) [Mass/Vol] Negative Invalid Interpretation Code negative [facility] Metabolic Panelon 12-16-2013 ALT [Catalytic activity/Vol] 15.0 U/L Invalid Interpretation Code 0-50 [facility] Glucose [Mass/Vol] 94.0 mg/dL Invalid Interpretation Code 80-117 [facility] HbA1c (Bld) [Mass fraction] 6.50 % Invalid Interpretation Code 4.3-6.3 [facility] Otheron 12-16-2013 Albumin (U) [Mass/Vol] < 12.00 Invalid Interpretation Code < 4.0-17.0 [facility] Cholesterol in VLDL [Mass/Vol] 22.0 mg/dL Invalid Interpretation Code 0-39 [facility] Cholesterol.total/Cho lesterol in HDL [Mass ratio] 4 {ratio} Invalid Interpretation Code [facility] Glucose Test strip (U) [Mass/Vol] Negative negative [facility] pH (U) 6.0 [pH] Invalid Interpretation Code 4.5-7.8 [facility] 140.0 mg/dL Invalid Interpretation Code [facility] See Above Invalid Interpretation Code 0-0 [facility] 15.0 U/L 0-50 [facility] Thyroidon 12-16-2013 T4 [Mass/Vol] 7.56 ug/dL Invalid Interpretation Code 5.00-12.00 [facility] TSH Qn 0.49 m[IU]/L Invalid Interpretation Code 0.50-4.00 [facility] Urinalysison 12-16-2013 Creatinine (U) [Mass/Vol] 162.70 mg/dL Invalid Interpretation Code Not Estab. mg dL [facility] Protein (U) [Mass/Vol] Negative negative [facility] Laboratory - Urinalysison Glucose Test strip (U) [Mass/Vol] Negative Invalid Interpretation Code negative [facility] Protein (U) [Mass/Vol] Negative Invalid Interpretation Code negative [facility] Metabolic Panelon 12-02-2013 Glucose [Mass/Vol] 108.0 mg/dL Invalid Interpretation Code 80-117 [facility] Otheron 12-02-2013 C peptide [Mass/Vol] <0.0 Invalid Interpretation Code 1.1-4.4 [facility] Glucose Test strip (U) [Mass/Vol] Negative negative [facility] Glutamate decarboxylase 65 Ab Qn (S) 96.7 Invalid Interpretation Code 0.0-1.5 [facility] pH (U) 7.0 [pH] Invalid Interpretation Code 4.5-7.8 [facility] See Above Invalid Interpretation Code 0-0 [facility] Urinalysison 12-02-2013 Protein (U) [Mass/Vol] Negative negative [facility] 03-21-2013 Cholesterol [Mass/Vol] 201.0 mg/dL Invalid Interpretation Code 0-200 [facility] Cholesterol in HDL [Mass/Vol] 74.0 mg/dL Invalid Interpretation Code 50-100 [facility] Cholesterol in LDL [Mass/Vol] 108.0 mg/dL Invalid Interpretation Code 0-130 [facility] Triglyceride [Mass/Vol] 93.0 mg/dL Invalid Interpretation Code 30-150 [facility] Laboratory - Urinalysison Glucose Test strip (U) [Mass/Vol] Negative Invalid Interpretation Code negative [facility] Protein (U) [Mass/Vol] Negative Invalid Interpretation Code negative [facility] Metabolic Panelon 03-21-2013 ALT [Catalytic activity/Vol] 28.0 U/L Invalid Interpretation Code 0-50 [facility] Glucose [Mass/Vol] 134.0 mg/dL Invalid Interpretation Code 80-117 [facility] HbA1c (Bld) [Mass fraction] 6.20 % Invalid Interpretation Code 4.3-6.3 [facility] Otheron 03-21-2013 Albumin (U) [Mass/Vol] < 12.00 Invalid Interpretation Code < 4.0-17.0 [facility] Cholesterol in VLDL [Mass/Vol] 19.0 mg/dL Invalid Interpretation Code 0-39 [facility] Cholesterol.total/Cho lesterol in HDL [Mass ratio] 3 {ratio} Invalid Interpretation Code [facility] Glucose Test strip (U) [Mass/Vol] Negative negative [facility] pH (U) 7.5 [pH] Invalid Interpretation Code 4.5-7.8 [facility] See Above Invalid Interpretation Code 0-0 [facility] 131.0 mg/dL Invalid Interpretation Code [facility] 28.0 U/L 0-50 [facility] Thyroidon 03-21-2013 T4 [Mass/Vol] 9.50 ug/dL Invalid Interpretation Code 5.00-12.00 [facility] TSH Qn 0.87 m[IU]/L Invalid Interpretation Code 0.50-4.00 [facility] Urinalysison 03-21-2013 Creatinine (U) [Mass/Vol] 74.0 mg/dL Invalid Interpretation Code Not Estab. mg dL [facility] Protein (U) [Mass/Vol] Negative negative [facility] Vital Signs Date Time Vital Sign Value Performing Clinician Facility 08-02-2023 10:31-0500 Body height 153.67 cm [facility] [employer] 08-02-2023 10:31-0500 Body mass index (BMI) [Ratio] 30.35 kg/m2 [place] Su[facility] 08-02-2023 10:31-0500 Body surface area Derived from formula 1.75 m2 [facility] [employer] 08-02-2023 10:31-0500 Body weight 71.67 kg [facility] [employer] 08-02-2023 10:31-0500 Diastolic blood pressure 80 mm[Hg] [facility] [employer] 08-02-2023 10:31-0500 Heart rate 74 /min [facility] [employer] 08-02-2023 10:31-0500 Systolic blood pressure 142 mm[Hg] [facility] [employer] 06-13-2023 13:00-0500 Body height 149.86 cm Gloria Mooney Other [facility] 06-13-2023 13:00-0500 Body mass index (BMI) [Ratio] 31.71 kg/m2 Gloria Mooney Other [facility] 06-13-2023 13:00-0500 Body weight 71.22 kg Gloria Mooney Other [facility] 06-13-2023 13:00-0500 Diastolic blood pressure 70 mm[Hg] Gloria Mooney Other [facility] 06-13-2023 13:00-0500 SaO2% (BldA) [Mass fraction] 97 % Gloria Mooney Other [facility] 06-13-2023 13:00-0500 Systolic blood pressure 140 mm[Hg] Gloria Jesica Other [facility] 05-02-2023 10:16-0400 Body weight 70.76 kg [facility] [employer] 05-02-2023 10:16-0400 Diastolic blood pressure 70 mm[Hg] [facility] [employer] 05-02-2023 10:16-0400 Heart rate 68 /min [facility] [employer] 05-02-2023 10:16-0400 Systolic blood pressure 110 mm[Hg] [facility] [employer] 01-30-2023 09:43-0400 Body weight 71.67 kg [facility] [employer] 01-30-2023 09:43-0400 Diastolic blood pressure 70 mm[Hg] [facility] [employer] 01-30-2023 09:43-0400 Heart rate 72 /min [facility] [employer] 01-30-2023 09:43-0400 Systolic blood pressure 122 mm[Hg] [facility] [employer] 10-31-2022 10:21-0400 Body height 151.64 cm [facility] [employer] 10-31-2022 10:21-0400 Body mass index (BMI) [Ratio] 30.58 kg/m2 [employer] 10-31-2022 10:21-0400 Body surface area Derived from formula 1.72 m2 [employer] 10-31-2022 10:21-0400 Body weight 70.31 kg Bebeto [facility] 10-31-2022 10:21-0400 Body weight 0.1 {percentile} [facility] [employer] 10-31-2022 10:21-0400 Diastolic blood pressure 78 mm[Hg] [facility] [employer] 10-31-2022 10:21-0400 Heart rate 72 /min [facility] [employer] 10-31-2022 10:21-0400 Systolic blood pressure 156 mm[Hg] [facility] [employer] 09-11-2022 17:48-0500 Body weight 70.76 kg [facility] [employer] 09-11-2022 17:48-0500 Diastolic blood pressure 72 mm[Hg] [facility] [employer] 09-11-2022 17:48-0500 Heart rate 68 /min [facility] [employer] 09-11-2022 17:48-0500 Systolic blood pressure 110 mm[Hg] [facility] [employer] 08-02-2022 10:15-0500 Body height 151.64 cm [facility] 08-02-2022 10:15-0500 Body mass index (BMI) [Ratio] 29.79 kg/m2 [facility] 08-02-2022 10:15-0500 Body surface area Derived from formula 1.7 m2 [facility] 08-02-2022 10:15-0500 Body weight 68.49 kg Patrice [employer] 08-02-2022 10:15-0500 Body weight 0.1 {percentile} [facility] [employer] 08-02-2022 10:15-0500 Diastolic blood pressure 70 mm[Hg] Patrice [employer] 08-02-2022 10:15-0500 Heart rate 68 /min [facility] [employer] 08-02-2022 10:15-0500 Systolic blood pressure 120 mm[Hg] [facility] [employer] 07-10-2022 12:30-0500 Diastolic blood pressure 67 mm[Hg] Eyal Sanchez MD Work Phone: [email or web address] 07-10-2022 12:30-0500 Heart rate 72 /min Eyal Sanchez MD Work Phone: [email or web address] 07-10-2022 12:30-0500 Respiratory rate 18 /min Eyal Sanchez MD Work Phone: [email or web address] 07-10-2022 12:30-0500 SaO2% (BldA) [Mass fraction] 95 % Eyal Sanchez MD Work Phone: [email or web address] 07-10-2022 12:30-0500 Systolic blood pressure 140 mm[Hg] Eyal Sanchez MD Work Phone: [email or web address] 07-10-2022 12:05-0500 Body temperature 97.2 [degF] Eyal Sanchez MD Work Phone: [email or web address] 07-05-2022 11:08-0500 Body height 149.9 cm Eyal Sanchez MD Work Phone: [email or web address] 07-05-2022 11:08-0500 Body mass index (BMI) [Ratio] 29.08 kg/m2 Eyal Sanchez MD Work Phone: [facility] [employer] 07-05-2022 11:08-0500 Body weight 65.32 kg Eyal Sanchez MD Work Phone: [facility] 05-02-2022 10:33-0400 Body weight 68.49 kg [facility] [employer] 05-02-2022 10:33-0400 Diastolic blood pressure 78 mm[Hg] [facility] [employer] 05-02-2022 10:33-0400 Heart rate 74 /min [facility] [employer] 05-02-2022 10:33-0400 Systolic blood pressure 142 mm[Hg] [facility] [employer] 01-30-2022 10:46-0400 Body height 149.86 cm [facility] [employer] 01-30-2022 10:46-0400 Body mass index (BMI) [Ratio] 30.3 kg/m2 [employer] [employer] 01-30-2022 10:46-0400 Body surface area Derived from formula 1.68 m2 [employer] [employer] 01-30-2022 10:46-0400 Body weight 68.04 kg [facility] [employer] 01-30-2022 10:46-0400 Diastolic blood pressure 74 mm[Hg] [employer] [employer] 01-30-2022 10:46-0400 Heart rate 66 /min [facility] 01-30-2022 10:46-0400 Systolic blood pressure 148 mm[Hg] [facility] [employer] 10-31-2021 10:190400 Body weight 67.59 kg Nupurmary anne Lacey [employer] 10-31-2021 10:190400 Diastolic blood pressure 70 mm[Hg] Nupur [employer] 10-31-2021 10:19-0400 Heart rate 74 /min Nupur [employer] [facility] 10-31-2021 10:190400 Systolic blood pressure 140 mm[Hg] Nupur [facility] 08-02-2021 10:12-0500 Body height 153.67 cm Nupur [facility] 08-02-2021 10:12-0500 Body mass index (BMI) [Ratio] 28.62 kg/m2 Nupur [employer] 08-02-2021 10:12-0500 Body surface area Derived from formula 1.7 m2 Nup[facility] 08-02-2021 10:12-0500 Body weight 67.59 kg Nupur [employer] 08-02-2021 10:12-0500 Diastolic blood pressure 70 mm[Hg] Nupur [facility] 08-02-2021 10:12-0500 Heart rate 84 /min [employer] [employer] 08-02-2021 10:12-0500 Systolic blood pressure 152 mm[Hg] [employer] 05-02-2021 11:21-0400 Body height 154.31 cm [employer] 05-02-2021 11:21-0400 Body mass index (BMI) [Ratio] 28.67 kg/m2 [employer] 05-02-2021 11:21-0400 Body surface area Derived from formula 1.71 m2 [employer] 05-02-2021 11:21-0400 Body weight 68.27 kg [employer] 05-02-2021 11:21-0400 Diastolic blood pressure 60 mm[Hg] [email or web address] 05-02-2021 11:21-0400 Heart rate 78 /min [employer] 05-02-2021 11:21-0400 Systolic blood pressure 134 mm[Hg] [employer] 02-02-2021 12:34-0400 Body height 154.31 cm [facility] 02-02-2021 12:34-0400 Body mass index (BMI) [Ratio] 29.34 kg/m2 [facility] 02-02-2021 12:34-0400 Body surface area Derived from formula 1.73 m2 [facility] 02-02-2021 12:34-0400 Body weight 69.85 kg [facility] 02-02-2021 12:34-0400 Diastolic blood pressure 66 mm[Hg] [employer] 02-02-2021 12:34-0400 Heart rate 72 /min Patrice Suarez [email or web address] [facility] 02-02-2021 12:34-0400 Systolic blood pressure 142 mm[Hg] Patrice Suarez [facility] 10-20-2020 12:15-0400 BMI (Body Mass Index) 29.53 kg/m2 Nupur Lacey [email or web address] [facility] 10-20-2020 12:15-0400 Body weight 70.31 kg Nupur [email or web address] [facility] 10-20-2020 12:15-0400 BP Diastolic 66 mm[Hg] Nupur [email or web address] [facility] 10-20-2020 12:15-0400 BP Systolic 130 mm[Hg] Nupur [email or web address] [facility] 10-20-2020 12:15-0400 BSA (Body Surface Area) 1.74 m2 Nupur [email or web address] [facility] 10-20-2020 12:15-0400 Height 154.31 cm Nupur [email or web address] [facility] 10-20-2020 12:15-0400 Pulse (Heart Rate) 72 /min Nupur Lacey Santos [facility] 07-21-2020 12:13-0500 BMI (Body Mass Index) 28.96 kg/m2 Nupur [email or web address] [facility] 07-21-2020 12:13-0500 Body weight 68.95 kg Nupur [email or web address] [facility] 07-21-2020 12:13-0500 BP Diastolic 70 mm[Hg] Nupur [email or web address] [facility] 07-21-2020 12:13-0500 BP Systolic 152 mm[Hg] Nupur Lacey [facility] 07-21-2020 12:13-0500 BSA (Body Surface Area) 1.72 m2 Nupur Lacey [facility] 07-21-2020 12:13-0500 Height 154.31 cm Nupur [facility] 07-21-2020 12:13-0500 Pulse (Heart Rate) 74 /min Nupur [employer] 04-14-2020 16:25-0400 BMI (Body Mass Index) 29 kg/m2 Nupur [facility] 04-14-2020 16:25-0400 Body weight 69.63 kg [employer] [employer] 04-14-2020 16:25-0400 BP Diastolic 79 mm[Hg] [employer] 04-14-2020 16:25-0400 BP Systolic 151 mm[Hg] Nupur [employer] 04-14-2020 16:25-0400 BSA (Body Surface Area) 1.73 m2 [employer] [employer] 04-14-2020 16:25-0400 Height 154.94 cm [employer] [employer] 04-14-2020 16:25-0400 Pulse (Heart Rate) 76 /min NupurThis Week Insar[email or web address] 01-14-2020 15:09-0400 BMI (Body Mass Index) 30.14 kg/m2 Patrice Suarez [employer] 01-14-2020 15:09-0400 Body Temperature 98 [degF] Patrice Javedhard [place] y [facility] 01-14-2020 15:09-0400 Body weight 72.35 kg [facility] 01-14-2020 15:09-0400 BP Diastolic 76 mm[Hg] Patrice Suarez Santos [facility] 01-14-2020 15:09-0400 BP Systolic 124 mm[Hg] Patrice Suarez Santos [facility] 01-14-2020 15:09-0400 BSA (Body Surface Area) 1.76 m2 Patrice Suarez Santos [facility] 01-14-2020 15:09-0400 Height 154.94 cm Patrice Suarez Santos [facility] 01-14-2020 15:09-0400 Pulse (Heart Rate) 72 /min Patrice Javedhard Cassandra [facility] 08-21-2019 10:50-0500 BMI (Body Mass Index) 31.18 kg/m2 Nupur RosenMedical [employer]ursements of [employer] Santos [facility] 08-21-2019 10:50-0500 Body weight 74.84 kg Nupur Lacey Santos [facility] 08-21-2019 10:50-0500 BP Diastolic 70 mm[Hg] Nupur GrabTaxinchard [facility] 08-21-2019 10:50-0500 BP Systolic 160 mm[Hg] Nupur [employer] Santos [facility] 08-21-2019 10:50-0500 BSA (Body Surface Area) 1.79 m2 Nupur [employer] Santos [facility] 08-21-2019 10:50-0500 Height 154.94 cm [employer]Organic [employer] 08-21-2019 10:50-0500 Pulse (Heart Rate) 80 /min Nupur Deepthi FontaineAdaptiveMobile 05-22-2019 10:37-0500 BMI (Body Mass Index) 30.48 kg/m2 [email or web address] 05-22-2019 10:37-0500 Body weight 73.17 kg [email or web address] 05-22-2019 10:37-0500 BP Diastolic 68 mm[Hg] [email or web address] 05-22-2019 10:37-0500 BP Systolic 110 mm[Hg] [email or web address] 05-22-2019 10:37-0500 BSA (Body Surface Area) 1.77 m2 [employer] 05-22-2019 10:37-0500 Height 154.94 cm [email or web address] 05-22-2019 10:37-0500 Pulse (Heart Rate) 70 /min Nupur Deepthi [email or web address] 02-12-2019 10:07-0400 BMI (Body Mass Index) 30.42 kg/m2 [email or web address] 02-12-2019 10:07-0400 Body weight 73.03 kg [email or web address] 02-12-2019 10:07-0400 BP Diastolic 64 mm[Hg] [email or web address] 02-12-2019 10:07-0400 BP Systolic 138 mm[Hg] [employer] 02-12-2019 10:0400 BSA (Body Surface Area) 1.77 m2 Nupur [employer] 02-12-2019 10:040 Height 154.94 cm [email or web address] 02-12-2019 10:070400 Pulse (Heart Rate) 78 /min Nupur Deepthi [email or web address] 11-28-2018 10:0400 BMI (Body Mass Index) 30.48 kg/m2 [employer] 11-28-2018 10:210400 Body weight 73.17 kg [email or web address] 11-28-2018 10:21-0400 BP Diastolic 74 mm[Hg] [employer] 11-28-2018 10:21-0400 BP Systolic 122 mm[Hg] [email or web address] 11-28-2018 10:0400 BSA (Body Surface Area) 1.77 m2 [email or web address] 11-28-2018 10:040 Height 154.94 cm [email or web address] 11-28-2018 10:0400 Pulse (Heart Rate) 80 /min NupurPlay [employer] 08-29-2018 10:16-0500 BMI (Body Mass Index) 30.23 kg/m2 [email or web address] 08-29-2018 10:16-0500 Body weight 72.58 kg [email or web address] 08-29-2018 10:16-0500 BP Diastolic 60 mm[Hg] Nupurbest Lacey [employer] 08-29-2018 10:16-0500 BP Systolic 132 mm[Hg] Nupurebst Lacey [employer] 08-29-2018 10:16-0500 BSA (Body Surface Area) 1.77 m2 [email or web address] 08-29-2018 10:16-0500 Height 154.94 cm [employer]Organic [employer] 08-29-2018 10:16-0500 Pulse (Heart Rate) 80 /min [employer] 05-30-2018 11:52-0500 BMI (Body Mass Index) 31.02 kg/m2 Nupur [employer] 05-30-2018 11:52-0500 Body weight 73.26 kg [employer]Organ[employer] 05-30-2018 11:52-0500 BP Diastolic 72 mm[Hg] [email or web address] 05-30-2018 11:52-0500 BP Systolic 144 mm[Hg] [employer] 05-30-2018 11:52-0500 BSA (Body Surface Area) 1.77 m2 [email or web address] 05-30-2018 11:52-0500 Height 153.67 cm [employer] 05-30-2018 11:52-0500 Pulse (Heart Rate) 68 /min [employer] 02-28-2018 11:42-0400 BMI (Body Mass Index) 31.89 kg/m2 [email or web address] 02-28-2018 11:42-0400 Body weight 75.3 kg [employer] 02-28-2018 11:42-0400 BP Diastolic 76 mm[Hg] [email or web address] 02-28-2018 11:42-0400 BP Systolic 134 mm[Hg] [email or web address] 02-28-2018 11:42-0400 BSA (Body Surface Area) 1.79 m2 [email or web address] 02-28-2018 11:42-0400 Height 153.67 cm [email or web address] 02-28-2018 11:42-0400 Pulse (Heart Rate) 80 /min [employer] 11-29-2017 11:28-0400 BP Diastolic 74 mm[Hg] [email or web address] 11-29-2017 11:28-0400 BP Systolic 132 mm[Hg] [email or web address] 11-29-2017 11:28-0400 Pulse (Heart Rate) 84 /min [employer] 08-30-2017 10:29-0500 BMI (Body Mass Index) 31.69 kg/m2 [email or web address] 08-30-2017 10:29-0500 Body weight 74.84 kg [email or web address] 08-30-2017 10:29-0500 BP Diastolic 62 mm[Hg] Nupur [employer]GeoVantage 08-30-2017 10:29-0500 BP Systolic 136 mm[Hg] Nupur Lacey [employer] 08-30-2017 10:290500 BSA (Body Surface Area) 1.79 m2 Nupur [employer] 08-30-2017 10:290500 Height 153.67 cm [email or web address] 08-30-2017 10:290500 Pulse (Heart Rate) 78 /min NupurPlay [employer] 05-29-2017 10:19-0500 BMI (Body Mass Index) 31.24 kg/m2 [email or web address] 05-29-2017 10:190500 Body weight 74.39 kg [employer]Organic [employer] 05-29-2017 10:19-0500 BP Diastolic 72 mm[Hg] Nupur [employer] 05-29-2017 10:190500 BP Systolic 138 mm[Hg] Nupur [employer] 05-29-2017 10:190500 BSA (Body Surface Area) 1.79 m2 [email or web address] 05-29-2017 10:190500 Height 154.31 cm [email or web address] 05-29-2017 10:19-0500 Pulse (Heart Rate) 86 /min [employer] 03-01-2017 10:13-0400 BMI (Body Mass Index) 31.15 kg/m2 Nupur Lacey [employer] 03-01-2017 10:13040 Body weight 74.16 kg Nupur Lacey [employer]Blue [employer] 03-01-2017 10:130400 BP Diastolic 74 mm[Hg] Nupurbest Lacey [employer] 03-01-2017 10:13040 BP Systolic 146 mm[Hg] [employer]Organic [employer] 03-01-2017 10:13040 BSA (Body Surface Area) 1.78 m2 [email or web address] 03-01-2017 10:13040 Height 154.31 cm [employer]urOrganic [employer] 03-01-2017 10:13040 Pulse (Heart Rate) 72 /min Nupur Javedhard [facility] [employer] 11-16-2016 11:180400 BP Diastolic 76 mm[Hg] Nupur Roka Biosciencesarah [employer] 11-16-2016 11:18-0400 BP Systolic 142 mm[Hg] MisoncBlue Sky [employer] 11-16-2016 10:17-0400 BMI (Body Mass Index) 31.15 kg/m2 ustymesarah [employer] 11-16-2016 10:17040 Body weight 74.16 kg Nupur Roka Biosciencesarah [employer] 11-16-2016 10:170400 BP Diastolic 72 mm[Hg] [email or web address] 11-16-2016 10:17-0400 BP Systolic 152 mm[Hg] Nupur Deepthi [employer] 11-16-2016 10:17-0400 BSA (Body Surface Area) 1.78 m2 Nupur Deepthi [employer] 11-16-2016 10:170400 Height 154.31 cm [employer]urOrgan[facility] [employer] 11-16-2016 10:17-0400 Pulse (Heart Rate) 72 /min Nupurmary anne JavedMobile Experience 08-17-2016 11:49-0500 BMI (Body Mass Index) 30.84 kg/m2 [email or web address] 08-17-2016 11:49-0500 Body weight 74.53 kg [employer]upurOrganic [employer] 08-17-2016 11:49-0500 BP Diastolic 60 mm[Hg] [email or web address] 08-17-2016 11:49-0500 BP Systolic 128 mm[Hg] [email or web address] 08-17-2016 11:49-0500 BSA (Body Surface Area) 1.79 m2 [employer]Organ[employer] 08-17-2016 11:49-0500 Height 155.45 cm [email or web address] 08-17-2016 11:49-0500 Pulse (Heart Rate) 70 /min Nupur Deepthi JavedMobile Experience 05-11-2016 11:22-0400 BMI (Body Mass Index) 30.3 kg/m2 [email or web address] 05-11-2016 11:22-0400 Body weight 73.94 kg [employer]Organ[employer] 05-11-2016 11:22-0400 BP Diastolic 70 mm[Hg] [email or web address] 05-11-2016 11:22-0400 BP Systolic 144 mm[Hg] [email or web address] 05-11-2016 11:22-0400 BSA (Body Surface Area) 1.79 m2 [email or web address] 05-11-2016 11:22-0400 Height 156.21 cm [email or web address] 05-11-2016 11:22-0400 Pulse (Heart Rate) 68 /min [employer] 02-10-2016 10:38-0400 BMI (Body Mass Index) 29.18 kg/m2 [email or web address] 02-10-2016 10:38-0400 Body weight 71.22 kg NupurOrganic [employer] 02-10-2016 10:38-0400 BP Diastolic 70 mm[Hg] [email or web address] 02-10-2016 10:38-0400 BP Systolic 140 mm[Hg] [email or web address] 02-10-2016 10:38-0400 BSA (Body Surface Area) 1.76 m2 [email or web address] 02-10-2016 10:38-0400 Height 156.21 cm [email or web address] 02-10-2016 10:38-0400 Pulse (Heart Rate) 78 /min [employer] 11-11-2015 10:40-0400 BMI (Body Mass Index) 29.74 kg/m2 Nupur RosenGeoVantage 11-11-2015 10:40-0400 Body weight 72.58 kg Nupur [employer] 11-11-2015 10:40-0400 BP Diastolic 70 mm[Hg] [email or web address] 11-11-2015 10:40-0400 BP Systolic 120 mm[Hg] [email or web address] 11-11-2015 10:40-0400 BSA (Body Surface Area) 1.77 m2 [email or web address] 11-11-2015 10:40-0400 Height 156.21 cm [email or web address] 11-11-2015 10:40-0400 Pulse (Heart Rate) 80 /min NupurThis Week Insarah SantosMobile Experience 08-05-2015 10:31-0500 BMI (Body Mass Index) 30.17 kg/m2 [email or web address] 08-05-2015 10:31-0500 Body weight 73.03 kg [employer]upurOrganic [employer] 08-05-2015 10:31-0500 BP Diastolic 74 mm[Hg] [email or web address] 08-05-2015 10:31-0500 BP Systolic 124 mm[Hg] [email or web address] 08-05-2015 10:31-0500 BSA (Body Surface Area) 1.78 m2 [email or web address] 08-05-2015 10:31-0500 Height 155.57 cm Nupur FontaineAquto 08-05-2015 10:31-0500 Pulse (Heart Rate) 72 /min Nupur Santos [place] 04-22-2015 10:38-0400 BMI (Body Mass Index) 29.72 kg/m2 Nupur Lacey [employer] 04-22-2015 10:38-0400 Body weight 73.71 kg Nupur Lacey [employer] 04-22-2015 10:38-0400 BP Diastolic 72 mm[Hg] Nupur Lacey [employer] 04-22-2015 10:38-0400 BP Systolic 156 mm[Hg] Nupur Lacey [employer] 04-22-2015 10:38-0400 BSA (Body Surface Area) 1.8 m2 Nupur [employer]Ge[employer] 04-22-2015 10:38-0400 Height 157.48 cm Nupur [employer]GeoVantage 04-22-2015 10:38-0400 Pulse (Heart Rate) 80 /min Nupur Santos [place] 01-20-2015 10:08-0400 BMI (Body Mass Index) 30.45 kg/m2 Nupur [employer] 01-20-2015 10:08-0400 Body weight 75.52 kg Nupur [employer]Ge[employer] 01-20-2015 10:08-0400 BP Diastolic 66 mm[Hg] [employer] [employer] 01-20-2015 10:08-0400 BP Systolic 126 mm[Hg] Nupurmary anne [employer]Ge[employer] 01-20-2015 10:08-0400 BSA (Body Surface Area) 1.82 m2 Nupur [employer] 01-20-2015 10:08-0400 Height 157.48 cm Nupur [employer] 01-20-2015 10:08-0400 Pulse (Heart Rate) 74 /min [employer] 09-22-2014 10:42-0400 BMI (Body Mass Index) 32.19 kg/m2 [email or web address] 09-22-2014 10:42-0400 Body weight 79.83 kg [employer]Organic [employer] 09-22-2014 10:42-0400 BP Diastolic 68 mm[Hg] [email or web address] 09-22-2014 10:42-0400 BP Systolic 124 mm[Hg] Nupur [employer] 09-22-2014 10:42-0400 BSA (Body Surface Area) 1.87 m2 [employer]Organ[employer] 09-22-2014 10:42-0400 Height 157.48 cm [email or web address] 09-22-2014 10:42-0400 Pulse (Heart Rate) 74 /min [employer] 06-16-2014 10:46-0500 BMI (Body Mass Index) 31.82 kg/m2 [email or web address] 06-16-2014 10:46-0500 Body weight 78.93 kg Nupur SilasGeoVantage 06-16-2014 10:46-0500 BP Diastolic 78 mm[Hg] [employer] 06-16-2014 10:46-0500 BP Systolic 150 mm[Hg] [employer] 06-16-2014 10:46-0500 BSA (Body Surface Area) 1.86 m2 [employer]Blue [employer] 06-16-2014 10:46-0500 Height 157.48 cm [email or web address] 06-16-2014 10:46-0500 Pulse (Heart Rate) 84 /min [facility] [employer] 03-17-2014 11:58-0400 BMI (Body Mass Index) 31.92 kg/m2 [employer] 03-17-2014 11:58-0400 Body weight 79.15 kg [employer]Blue Sky [employer] 03-17-2014 11:58-0400 BP Diastolic 66 mm[Hg] [email or web address] 03-17-2014 11:58-0400 BP Systolic 112 mm[Hg] [employer] 03-17-2014 11:58-0400 BSA (Body Surface Area) 1.86 m2 [email or web address] 03-17-2014 11:58-0400 Height 157.48 cm [email or web address] 03-17-2014 11:58-0400 Pulse (Heart Rate) 76 /min Nupur JavedMobile Experience 12-16-2013 12:18-0400 BMI (Body Mass Index) 31.46 kg/m2 Nupur Lacey [employer] 12-16-2013 12:18-0400 Body weight 78.02 kg Nupur Lacey [employer] 12-16-2013 12:18-0400 BP Diastolic 86 mm[Hg] Nupurmary anne Lacey [employer] 12-16-2013 12:18-0400 BP Systolic 126 mm[Hg] Nupur [employer] 12-16-2013 12:18-0400 BSA (Body Surface Area) 1.85 m2 [employer]Organic [employer] 12-16-2013 12:18-0400 Height 157.48 cm NupurThis Week Insarah [employer] 12-16-2013 12:18-0400 Pulse (Heart Rate) 68 /min Nupur JavedMobile [employer] 03-21-2013 10:04-0400 Body weight 77.79 kg Nupurmary anne Lacey [employer] 03-21-2013 10:04-0400 BP Diastolic 70 mm[Hg] Nupur SilasGeoVantage 03-21-2013 10:04-0400 BP Systolic 150 mm[Hg] [email or web address] 03-21-2013 10:04-0400 Pulse (Heart Rate) 84 /min Nupur Deepthi SantosMobile Experience 11-15-2012 10:18-0400 Body Temperature 97.8 [degF] Nupur Ames [employer] 11-15-2012 10:18-0400 Body weight 76.66 kg Nupur Lacey [employer] 11-15-2012 10:18-0400 BP Diastolic 70 mm[Hg] Nupur Lacey [employer] 11-15-2012 10:18-0400 BP Systolic 138 mm[Hg] Nupur Lacey [employer] 11-15-2012 10:18-0400 Pulse (Heart Rate) 68 /min Nupur Santos Cassandra [employer] Encounters Encounter Date Encounter Type Care Provider Facility Start: 08-16-2023 End: 08-17-2023 ambulatory [facility] Start: 08-15-2023 End: 08-15-2023 ambulatory [facility] Start: 08-02-2023 Medicare Lab Patrice L Funmie clifton Other [facility] Start: 08-02-2023 Office outpatient visit 25 minutes Nupur Lacey Other [facility] Start: 06-20-2023 End: 06-20-2023 ambulatory Gloria Mooney Other [facility] Other Start: 06-20-2023 Nursing evaluation o f patient and report Gloria Mooney [facility] Start: 06-13-2023 End: 06-13-2023 ambulatory Gloria Mooney Other [facility] Other Start: 06-13-2023 Office outpatient ne w 30 minutes Gloria Mooney [facility] Start: 05-02-2023 Medicare Lab Patrice L Schroe clifton Other [facility] Start: 05-02-2023 Office outpatient visit 25 minutes Nupur S Schworm Other [facility] Start: 02-27-2023 Office Services Bebeto P March and Other [facility] Start: 01-30-2023 Medicare Lab Patrice L Schroe clifton Other [facility] Start: 01-30-2023 Office outpatient visit 25 minutes Nupur S Schworm Other [facility] Start: 11-27-2022 Office Services Bebeto P March and Other [facility] Start: 11-17-2022 End: 11-17-[address] CHINEDU SEVILLA Facility: Start: 10-31-2022 Medicare Lab Patrice L Funmie clifton Other [facility] Start: 10-31-2022 Office outpatient visit 25 minutes Nupur S Schworm Other [facility] Start: 09-26-2022 Office Services Bebeto P March and Other [facility] Start: 09-11-2022 Office Services Bebeto P March and Other [facility] Start: 09-11-2022 Office outpatient ne w 30 minutes Bebeto P Ginger Other [facility] Start: 08-02-2022 Medicare Lab Patrice L Funmie clifton Other [facility] Start: 08-02-2022 Office outpatient visit 25 minutes Nupur S Schworm Other [facility] Start: 07-10-2022 End: 07-10-2022 ambulatory [facility] Start: 07-10-2022 End: 07-10-2022 Subsequent hospital visit by physician Eyal Sanchez MD Work Phone: [facility] Start: 05-02-2022 Medicare Lab Patrice L Funmie clifton Other [facility] Start: 05-02-2022 Office outpatient visit 25 minutes Nupur S Schworm Other [facility] Start: 01-30-2022 Medicare Lab Patrice L Sandrine clifton Other [facility] Start: 01-30-2022 Office outpatient visit 25 minutes Nupur S Schworm Other [facility] Start: 10-31-2021 Medicare Lab Nupur S Schwor m Other [facility] Start: 10-31-2021 Office outpatient visit 25 minutes Nupur S Schworm Other [facility] Start: 08-02-2021 Medicare Lab Nupur S Schwor m Other [facility] Start: 08-02-2021 Office outpatient visit 25 minutes Nupur S Schworm Other [facility] Start: 05-02-2021 Medicare Lab Patrice Efren Deluca clifton Other [facility] Start: 05-02-2021 Office outpatient visit 25 minutes Nupur S Schworm Other [facility] Start: 02-02-2021 Medicare Lab Patrice Efren Deluac clifton Other [facility] Start: 02-02-2021 Office outpatient visit 25 minutes Nupur S Schworm Other [facility] Start: 10-20-2020 Medicare Lab Nupur S Schwor m Other [facility] Start: 10-20-2020 Office outpatient visit 25 minutes Nupur S Schworm Other [facility] Start: 08-10-2020 Office Services Luciana carter Other [facility] Start: 07-21-2020 Medicare Lab Nupur S Schwor m Other [facility] Start: 07-21-2020 Office outpatient visit 25 minutes Nupur S Schworm Other [facility] Start: 04-14-2020 Medicare Lab Patrice L Schroe clifton Other [facility] Start: 04-14-2020 End: 04-14-2020 Office Services Nupur S Schworm Other [facility] Start: 04-14-2020 Office outpatient visit 25 minutes Nupur S Schworm Other [facility] Start: 01-14-2020 Medicare Lab Patrice Deluca clifton Other [facility] Start: 01-14-2020 Office outpatient visit 25 minutes Nupur S Schworm Other [facility] Start: 10-02-2019 Office Services Luciana carter Other [facility] Start: 08-21-2019 Medicare Lab Nupur S Schwor m Other [facility] Start: 08-21-2019 Foot exam performed Lupe gibson Other [facility] Start: 08-21-2019 Office outpatient visit 25 minutes Lupe Mccabe Other [facility] Start: 05-22-2019 Medicare Lab Nupur S Schwor m Other [facility] Start: 05-22-2019 Office outpatient visit 25 minutes Nupur S Schworm Other [facility] Start: 02-12-2019 Medicare Lab Nupur S Schwor m Other [facility] Start: 02-12-2019 Office outpatient visit 25 minutes Nupur S Schworm Other [facility] Start: 11-28-2018 Lab Nupur S Schwor m Other [facility] Start: 11-28-2018 Office outpatient visit 25 minutes Nupur S Schworm Other [facility] Start: 08-29-2018 Office Services Patrice Schwartz Sandrine clifton Other [facility] Start: 08-29-2018 Office outpatient visit 25 minutes Nupur S Schworm Other [facility] Start: 05-30-2018 Office Services Patrice L Schroe clifton Other [facility] Start: 05-30-2018 Office outpatient visit 15 minutes Nupur S Schworm Other [facility] Start: 02-28-2018 Office Services Patrice L Schroe clifton Other [facility] Start: 02-28-2018 Office outpatient visit 25 minutes Nupur S Schworm Other [facility] Start: 11-29-2017 Office outpatient visit 25 minutes Nupur S Schworm Other [facility] Start: 11-29-2017 Office Services Nupur S Schwor m Other [facility] Start: 08-30-2017 Office Services Nupur S Schwor m Other [facility] Office Start: 08-30-2017 Office outpatient visit 25 minutes Patrice L Suarez Other [facility] Office Start: 05-29-2017 Office Services Nupur S Schwor m Other [facility] Start: 05-29-2017 Office outpatient visit 25 minutes Patrice L Suarez Other [facility] Office Start: 03-01-2017 Office outpatient visit 25 minutes Nupur S Schworm Other [facility] Office Start: 03-01-2017 Lab Nupur S Schwor m Other [facility] Start: 11-16-2016 Office outpatient ne w 20 minutes Farhat Nunn Other [facility] Start: 11-16-2016 Lab Nupur S Schwor m Other [facility] Start: 11-16-2016 Office outpatient visit 25 minutes Nupur S Schworm Other [facility] Start: 08-17-2016 Lab Patrice L Funmie clifton Other [facility] Start: 08-17-2016 End: 08-17-2016 Office Services Nupur S Schworm Other [facility] Office Start: 08-17-2016 Office outpatient visit 25 minutes Nupur S Schworm Other [facility] Start: 05-11-2016 End: 05-11-2016 Office Services Nupur S Schworm Other [facility] Office Start: 05-11-2016 Office outpatient visit 25 minutes Nupur S Schworm Other [facility] Start: 02-10-2016 Lab Nupur S Schwor m Other [facility] Office Start: 02-10-2016 Office outpatient visit 25 minutes Nupur S Schworm Other [facility] Office Start: 11-11-2015 Lab Nupur S Schwor m Other [facility] Office Start: 11-11-2015 Office outpatient visit 25 minutes Nupur S Schworm Other [facility] Office Start: 08-05-2015 Office outpatient visit 25 minutes Nupur S Schworm Other [facility] Office Start: 08-05-2015 Office Services Nupur S Schwor m Other [facility] Office Start: 04-22-2015 Lab Nupur S Schwor m Other [facility] Office Start: 04-22-2015 Office outpatient visit 25 minutes Nupur S Schworm Other [facility] Office Start: 01-20-2015 Lab Patrice Deluca clifton Other [facility] Office Start: 01-20-2015 Office outpatient visit 25 minutes Nupur S Schworm Other [facility] Office Start: 09-22-2014 Foot exam performed Patrice mayers Other [facility] Start: 09-22-2014 Office outpatient visit 25 minutes Patrice Suarez Other [facility] Office Start: 09-22-2014 Lab Patrice Deluca clifton Other [facility] Office Start: 06-16-2014 Foot exam performed Patrice L Sc hroeder Other [facility] Start: 03-17-2014 Medicare Lab Patrice Deluca clifton Other [facility] Start: 03-17-2014 Foot exam performed Patrice L Sc hroeder Other [facility] Start: 12-16-2013 Medicare Lab Patrice Deluca clifton Other [facility] Start: 12-16-2013 Foot exam performed Patrice L Sc hroeder Other [facility] Office Start: 12-02-2013 Medicare Lab Patrice Deluca clifton Other [facility] Start: 03-21-2013 End: 03-21-2013 Office Services Patrice Suarez Other [facility] Office Start: 11-15-2012 End: 11-15-2012 Office Services Patrice Suarez Other [facility] Office Start: 07-19-2012 Voided Visit Patrice Deluca clifton Other [facility] Office Start: 07-19-2012 Office Services Patrice Deluca clifton Other [facility] Office Procedures Date Procedure Procedure Detail Performing Clinician Start: 08-02-2023 Basic metabolic pane l calcium total Patrice Suarez Start: 08-02-2023 Hemoglobin A1c measurement Patrice Suarez Start: 08-02-2023 MICROALBUMIN/Urine C reat Ratio Patrice Suarez Start: 08-02-2023 Thyroid stimulating hormone measurement Patrice Suarez Start: 08-02-2023 Thyroxine measurement L eroy Suarez Start: 08-02-2023 Blood chemistry Patrice S chroeder Start: 08-02-2023 BS-Dip Patrice Knightr oeder Start: 05-02-2023 Basic metabolic pane l calcium total Patrice Suarez Start: 05-02-2023 Hemoglobin A1c measurement Patrice Suarez Start: 05-02-2023 Lipid panel Patrice Schr oeder Start: 05-02-2023 MICROALBUMIN/Urine C reat Ratio Patricesophia ChoudharySuarez Start: 05-02-2023 Blood chemistry Patrice S chroeder Start: 05-02-2023 BS-Dip Patrice Schr oeder Start: 02-25-2023 Docrev cur meds by [facility] Bebeto Miles Start: 01-30-2023 Basic metabolic pane l calcium total Patrice Suarez Start: 01-30-2023 Hemoglobin A1c measurement Patrice Suarez Start: 01-30-2023 MICROALBUMIN/Urine C reat Ratio Patrice Suarez Start: 01-30-2023 Blood chemistry Patrice S chroeder Start: 01-30-2023 BS-Dip Patrice Schr jessie Start: 11-25-2022 Docrev cur meds by [facility] clin Bebeto Ginger Start: 10-31-2022 Basic metabolic pane l calcium total Bebeto Ginger Start: 10-31-2022 Docrev cur meds by [facility] Bebeto Ginger Start: 10-31-2022 Hemoglobin A1c measurement Bebeto Ginger Start: 10-31-2022 Lipid panel Bebeto Erum anderson Start: 10-31-2022 Thyroid stimulating hormone measurement Bebeto Ginger Start: 10-31-2022 Thyroxine measurement Princess klein Ginger Start: 10-31-2022 X-ray of left foot Hieu my Ginger Start: 10-31-2022 Blood chemistry Bebeto Ginger Start: 10-31-2022 BS-Dip Bebeto anderson Start: 09-25-2022 Docrev cur meds by [facility] Bebeto [facility] Start: 09-25-2022 X-ray of left foot Hieu my Ginger Start: 09-11-2022 Docrev cur meds by [facility] Bebeto [facility] Start: 09-11-2022 X-ray of left foot Hieu my Ginger Start: 08-02-2022 Alanine aminotransfe rase measurement Patrice Suarez Start: 08-02-2022 Basic metabolic pane l calcium total Patrice Suarez Start: 08-02-2022 Docrev cur meds by [facility] Patrice Suarez Start: 08-02-2022 Hemoglobin A1c measurement Patrice Suarez Start: 08-02-2022 Lipid panel Patrice Schr oeder Start: 08-02-2022 MICROALBUMIN/Urine C reat Ratio Patrice Suarez Start: 08-02-2022 Blood chemistry Patrice S chroeder Start: 07-10-2022 CALCIUM, IONIC (POC) Ph freddie Sanchez MD Work Phone: Start: 07-10-2022 CREATININE W/GFR POI NT OF CARE Eyal Sanchez MD Work Phone: Start: 07-10-2022 ELECTROLYTES PLUS Mendy Sanchez MD Work Phone: Start: 07-10-2022 Gluc bld gluc mntr d ev cleared fda spec home use Eyal Sanchez MD Work Phone: Start: 05-02-2022 Basic metabolic pane l calcium total Patrice Suarez Start: 05-02-2022 Docrev cur meds by elig clin Patrice Suarez Start: 05-02-2022 Glucose measurement by monitoring device Patrice Suarez Start: 05-02-2022 Hemoglobin A1c measurement Patrice Suarez Start: 05-02-2022 Lipid panel Patrice Schr oeder Start: 05-02-2022 MICROALBUMIN/Urine C reat Ratio Patrice Suarez Start: 05-02-2022 Blood chemistry Patrice S chroeder Start: 05-02-2022 BS-Dip Patrice Schr oeder Start: 01-30-2022 Basic metabolic pane l calcium total Patrice Suarez Start: 01-30-2022 Docrev cur meds by elig clin Patrice Suarez Start: 01-30-2022 Glucose measurement by monitoring device Patrice Suarez Start: 01-30-2022 Hemoglobin A1c measurement Patrice Suarez Start: 01-30-2022 Lipid panel Patrice Schr oeder Start: 01-30-2022 Blood chemistry Patrice S chroeder Start: 10-31-2021 Basic metabolic pane l calcium total Nupur Schworm Start: 10-31-2021 Docrev cur meds by elig clin Nupur Schworm Start: 10-31-2021 Glucose measurement by monitoring device Patrice Suarez Start: 10-31-2021 Hemoglobin A1c measurement Nupur Schworm Start: 10-31-2021 MICROALBUMIN/Urine C reat Ratio Nupur Schworm Start: 10-31-2021 Thyroid stimulating hormone measurement Nupur Schworm Start: 10-31-2021 Thyroxine measurement W endi Schworm Start: 10-31-2021 Blood chemistry Nupur S chworm Start: 10-31-2021 Dip UA (for Ketones) We ndi Schworm Start: 08-02-2021 Basic metabolic pane l calcium total Nupur Schworm Start: 08-02-2021 Docrev cur meds by elig clin Nupur Schworm Start: 08-02-2021 Glucose measurement by monitoring device Bebeto Ginger Start: 08-02-2021 Hemoglobin A1c measurement Nupur Schworm Start: 08-02-2021 Lipid panel Nupur Schw orm Start: 08-02-2021 MICROALBUMIN/Urine C reat Ratio Nupur Schworm Start: 08-02-2021 Thyroid stimulating hormone measurement Nupur Schworm Start: 08-02-2021 Thyroxine measurement W endi Schworm Start: 08-02-2021 Blood chemistry Nupur S chworm Start: 08-02-2021 Dip UA (for Ketones) We ndi Schworm Start: 05-05-2021 Basic metabolic pane l calcium total Nupur Schworm Start: 05-05-2021 Hemoglobin A1c measurement Nupur Schworm Start: 05-05-2021 MICROALBUMIN/Urine C reat Ratio Nupur Schworm Start: 05-05-2021 Thyroid stimulating hormone measurement Nupur Schworm Start: 05-05-2021 Thyroxine measurement W endi Schworm Start: 05-02-2021 Docrev cur meds by elig clin Nupur Schworm Start: 05-02-2021 Glucose measurement by monitoring device Nupur Schworm Start: 05-02-2021 Blood chemistry Nupur S chworm Start: 02-02-2021 Docrev cur meds by elig clin Patrice Suarez Start: 02-02-2021 Glucose measurement by monitoring device Nupur Schworm Start: 02-02-2021 Blood chemistry Patrice S chroeder Start: 02-02-2021 BS-Dip Patrice Schr oeder Start: 01-19-2021 Basic metabolic pane l calcium total Patrice Suarez Start: 01-19-2021 Hemoglobin A1c measurement Patrice Suarez Start: 01-19-2021 Lipid panel Patrice Schr oeder Start: 01-19-2021 MICROALBUMIN/Urine C reat Ratio Patrice Suarez Start: 10-20-2020 Assay of thyroid sti mulating hormone tsh Nupur Schworm Start: 10-20-2020 Assay of thyroxine total Nupur Schworm Start: 10-20-2020 Blood count complete automated Nupur Schworm Start: 10-20-2020 Doc meds verified w/pt or re Nupur Schworm Start: 10-20-2020 Erythrocyte mean cor puscular volume determination Patrice Suarez Start: 10-20-2020 Glucose measurement by monitoring device Patrice Suarez Start: 10-20-2020 Thyroid stimulating hormone measurement Patrice Suarez Start: 10-20-2020 Thyroxine measurement L wood Suarez Start: 10-20-2020 BS-Dip Nupur Schw orm Start: 10-19-2020 Glucose quantitative blood xcpt reagent strip Nupur Schworm Start: 10-19-2020 Hemoglobin A1c measurement Patrice Suarez Start: 10-19-2020 Hemoglobin glycosylated a1c Nupur Schworm Start: 08-10-2020 Diab manage trn per indiv Nupur Schworm Start: 07-21-2020 Antibody; severe acu te respiratory syndrome Coronavirus 2 (SARS-cov-2) (Coronavirus disease [covid-19]) Nupur Schworm Start: 07-21-2020 Continuous glucose m onitoring analysis i&r Nupur Schworm Start: 07-21-2020 Doc meds verified w/pt or re Nupur Schworm Start: 07-21-2020 Glucose measurement by monitoring device Patrice Saurez Start: 07-21-2020 Basic metabolic pane l calcium ionized Nupur Schworm Start: 07-21-2020 Basic metabolic pane l calcium total Nupur Schworm Start: 07-21-2020 Blood chemistry Patrice S chroeder Start: 07-21-2020 BS-Dip Nupur Schw orm Start: 07-16-2020 Assay of thyroid sti mulating hormone tsh Nupur Schworm Start: 07-16-2020 Assay of thyroxine total Nupur Schworm Start: 07-16-2020 Basic metabolic pane l calcium total Nupur Schworm Start: 07-16-2020 Hemoglobin A1c measurement Patrice Suarez Start: 07-16-2020 Hemoglobin glycosylated a1c Nupur Schworm Start: 07-16-2020 Lipid panel Nupur Schw orm Start: 07-16-2020 Lipid panel Patrice Schr oeder Start: 07-16-2020 Thyroid stimulating hormone measurement Patrice Suarez Start: 07-16-2020 Thyroxine measurement L wood Suarez Start: 04-15-2020 Hemoglobin A1c measurement Patrice Suarez Start: 04-15-2020 Hemoglobin glycosylated a1c Nupur Schworm Start: 04-15-2020 Lipid panel Nupur Schw orm Start: 04-15-2020 Lipid panel Patrice Schr oeder Start: 04-14-2020 Basic metabolic pane l calcium ionized Nupur Schworm Start: 04-14-2020 Basic metabolic pane l calcium total Nupur Schworm Start: 04-14-2020 Blood chemistry Patrice S chroeder Start: 04-14-2020 BS-Dip Nupur Schw orm Start: 04-14-2020 Assay of blood/uric acid Patrice Suarez Start: 04-14-2020 Blood urate measurement Patrice Suarez Start: 04-14-2020 Doc meds verified w/pt or re Nupur Schworm Start: 01-14-2020 Doc meds verified w/pt or re Patrice Suarez Start: 11-20-2019 Assay of thyroid sti mulating hormone tsh Patrice Suarez Start: 11-20-2019 Assay of thyroxine total Patrice Choudharyeder Start: 11-20-2019 Basic metabolic pane l calcium total Patrice Suarez Start: 11-20-2019 Hemoglobin A1c measurement Patrice Suarez Start: 11-20-2019 Hemoglobin glycosylated a1c Patrice Suarez Start: 11-20-2019 MICROALBUMIN/Urine C reat Ratio Patrice Suarez Start: 11-20-2019 Thyroid stimulating hormone measurement Patrice Choudharyeder Start: 11-20-2019 Thyroxine measurement L wood Suarez Start: 10-05-2019 Diab manage trn per indiv Nupur Schworm Start: 08-22-2019 Basic metabolic pane l calcium total Nupur Schworm Start: 08-22-2019 Hemoglobin A1c measurement Patrice Suarez Start: 08-22-2019 Hemoglobin glycosylated a1c Nupur Schworm Start: 08-22-2019 Lipid panel Nupur Schw orm Start: 08-22-2019 Lipid panel Patrice Schr oeder Start: 08-21-2019 Diabetic foot examination Nupur Schworm Start: 05-22-2019 Admin pneumococcal vaccine Nupur Schworm Start: 05-22-2019 Doc meds verified w/pt or re Nupur Schworm Start: 05-15-2019 Basic metabolic pane l calcium total Nupur Schworm Start: 05-15-2019 Hemoglobin A1c measurement Patrice Suarez Start: 05-15-2019 Hemoglobin glycosylated a1c Nupur Schworm Start: 05-15-2019 MICROALBUMIN/Urine C reat Ratio Nupur Schworm Start: 02-28-2019 Assay of thyroid sti mulating hormone tsh Nupur Schworm Start: 02-28-2019 Assay of thyroxine total Nupur Schworm Start: 02-28-2019 Basic metabolic pane l calcium total Nupur Schworm Start: 02-28-2019 Hemoglobin A1c measurement Patrice Suarez Start: 02-28-2019 Hemoglobin glycosylated a1c Nupur Schworm Start: 02-28-2019 Lipid panel Nupur Schw orm Start: 02-28-2019 Lipid panel Patrice Schr oeder Start: 02-28-2019 MICROALBUMIN/Urine C reat Ratio Nupur Schworm Start: 02-28-2019 Thyroid stimulating hormone measurement Patrice Suarez Start: 02-28-2019 Thyroxine measurement L wood Suarez Start: 02-12-2019 Blood count complete automated Nupur Schworm Start: 02-12-2019 Continuous glucose m onitoring analysis i&r Nupur Schworm Start: 02-12-2019 Doc meds verified w/pt or re Nupur Schworm Start: 02-12-2019 Erythrocyte mean cor puscular volume determination Patrice Suarez Start: 02-12-2019 Glucose measurement by monitoring device Patrice Suarez Start: 11-28-2018 Doc meds verified w/pt or re Nupur Schworm Start: 11-26-2018 Basic metabolic pane l calcium total Nupur Schworm Start: 11-26-2018 Hemoglobin A1c measurement Patrice Saurez Start: 11-26-2018 Hemoglobin glycosylated a1c Nupur Schworm Start: 11-26-2018 Lipid panel Nupur Schw orm Start: 11-26-2018 Lipid panel Patrice Schr oeder Start: 08-30-2018 Basic metabolic pane l calcium total Nupur Schworm Start: 08-30-2018 Hemoglobin A1c measurement Patrice Suarez Start: 08-30-2018 Hemoglobin glycosylated a1c Nupur Schworm Start: 08-30-2018 MICROALBUMIN/Urine C reat Ratio Nupur Schworm Start: 08-29-2018 Continuous glucose m onitoring analysis i&r Nupur Schworm Start: 08-29-2018 Doc meds verified w/pt or re Nupur Schworm Start: 08-29-2018 Glucose measurement by monitoring device Patrice Suarez Start: 05-31-2018 Assay of thyroid sti mulating hormone tsh Nupur Schworm Start: 05-31-2018 Assay of thyroxine total Nupur Schworm Start: 05-31-2018 Basic metabolic pane l calcium total Nupur Schworm Start: 05-31-2018 Hemoglobin A1c measurement Patrice Suarez Start: 05-31-2018 Hemoglobin glycosylated a1c Nupur Schworm Start: 05-31-2018 Lipid panel Nupur Schw orm Start: 05-31-2018 Lipid panel Patrice Schr oeder Start: 05-31-2018 Thyroid stimulating hormone measurement Patrice Suarez Start: 05-31-2018 Thyroxine measurement L wood Suarez Start: 05-30-2018 Continuous glucose m onitoring analysis i&r Nupur Schworm Start: 05-30-2018 Doc meds verified w/pt or re Nupur Schworm Start: 05-30-2018 Glucose measurement by monitoring device Patrice Suarez Start: 03-01-2018 Basic metabolic pane l calcium total Nupur Schworm Start: 03-01-2018 Hemoglobin A1c measurement Patrice Suarez Start: 03-01-2018 Hemoglobin glycosylated a1c Nupur Schworm Start: 03-01-2018 MICROALBUMIN/Urine C reat Ratio Nupur Schworm Start: 02-28-2018 Doc meds verified w/pt or re Nupur Schworm Start: 11-29-2017 Doc meds verified w/pt or re Nupur Schworm Start: 11-27-2017 Basic metabolic pane l calcium total Nupur Schworm Start: 11-27-2017 Hemoglobin A1c measurement Patrice Suarez Start: 11-27-2017 Hemoglobin glycosylated a1c Nupur Schworm Start: 11-27-2017 Lipid panel Nupur Schw orm Start: 11-27-2017 Lipid panel Patrice Schr oeder Start: 11-27-2017 MICROALBUMIN/Urine C reat Ratio Nupur Schworm Start: 08-30-2017 Doc meds verified w/pt or re Nupur Schworm Start: 08-29-2017 Assay of thyroid sti mulating hormone tsh Nupur Schworm Start: 08-29-2017 Assay of thyroxine total Nupur Schworm Start: 08-29-2017 Basic metabolic pane l calcium total Nupur Schworm Start: 08-29-2017 Hemoglobin A1c measurement Patricesophia Suarez Start: 08-29-2017 Hemoglobin glycosylated a1c Nupur Schworm Start: 08-29-2017 Lipid panel Nupur Schw orm Start: 08-29-2017 Lipid panel Patrice Schr oeder Start: 08-29-2017 MICROALBUMIN/Urine C reat Ratio Nupur Schworm Start: 08-29-2017 Thyroid stimulating hormone measurement Patrice Suarez Start: 08-29-2017 Thyroxine measurement L wood Suarez Start: 06-01-2017 Basic metabolic pane l calcium total Nupur Schworm Start: 06-01-2017 Hemoglobin A1c measurement Patricesophia Suarez Start: 06-01-2017 Hemoglobin glycosylated a1c Nupur Schworm Start: 06-01-2017 Lipid panel Nupur Schw orm Start: 06-01-2017 Lipid panel Patrice Schr oeder Start: 06-01-2017 MICROALBUMIN/Urine C reat Ratio Nupur Schworm Start: 05-29-2017 Current Medications Verified MIPS Nupur Schworm Start: 05-29-2017 Basic metabolic pane l calcium ionized Nupur Schworm Start: 05-29-2017 Basic metabolic pane l calcium total Nupur Schworm Start: 05-29-2017 Blood chemistry Patrice S chroeder Start: 05-29-2017 BS-Dip Nupur Schw orm Start: 05-29-2017 Glucose Meter Check Oliva di Schworm Start: 03-01-2017 Current Medications Verified MIPS Nupur Schworm Start: 03-01-2017 Basic metabolic pane l calcium ionized Nupur Schworm Start: 03-01-2017 Basic metabolic pane l calcium total Nupur Schworm Start: 03-01-2017 Blood chemistry Patrice S chroeder Start: 03-01-2017 BS-Dip Nupur Schw orm Start: 03-01-2017 Glucose Meter Check Oliva di Schworm Start: 02-16-2017 Basic metabolic pane l calcium total Nupur Schworm Start: 02-16-2017 Hemoglobin A1c measurement Patrice Suarez Start: 02-16-2017 Hemoglobin glycosylated a1c Nupur Schworm Start: 02-16-2017 MICROALBUMIN/Urine C reat Ratio Nupur Schworm Start: 11-16-2016 Destruction of chrissy lignant skin lesion Patrice Suarez Start: 11-16-2016 Destruction premalig nant lesion 1st Nupur Schworm Start: 11-16-2016 BS-Dip Nupur Schw orm Start: 11-16-2016 Glucose Meter Check Oliva di Schworm Start: 11-14-2016 Glucose measurement, quantitative Patrice Suarez Start: 11-14-2016 Glucose quantitative blood xcpt reagent strip Nupur Schworm Start: 11-14-2016 Hemoglobin A1c measurement Patrice Suarez Start: 11-14-2016 Hemoglobin glycosylated a1c Nupur Schworm Start: 11-14-2016 Lipid panel Nupur Schw orm Start: 11-14-2016 Lipid panel Patrice Schr oeder Start: 08-17-2016 Diab manage trn per indiv Nupur Schworm Start: 08-17-2016 Basic metabolic pane l calcium ionized Nupur Schworm Start: 08-17-2016 Basic metabolic pane l calcium total Nupur Schworm Start: 08-17-2016 Blood chemistry Patrice S chroeder Start: 08-17-2016 BS-Dip Nupur Schw orm Start: 08-11-2016 Assay of thyroid sti mulating hormone tsh Nupur Schworm Start: 08-11-2016 Assay of thyroxine total Nupur Schworm Start: 08-11-2016 Basic metabolic pane l calcium total Nupur Schworm Start: 08-11-2016 Hemoglobin A1c measurement Patrice Suarez Start: 08-11-2016 Hemoglobin glycosylated a1c Nupur Schworm Start: 08-11-2016 MICROALBUMIN/Urine C reat Ratio Nupur Schworm Start: 08-11-2016 Thyroid stimulating hormone measurement Patrice Suarez Start: 08-11-2016 Thyroxine measurement L eroy Suarez Start: 05-12-2016 Alanine aminotransfe rase measurement Patrice Suarez Start: 05-12-2016 Glucose measurement, quantitative Patrice Suarez Start: 05-12-2016 Glucose quantitative blood xcpt reagent strip Nupur Schworm Start: 05-12-2016 Hemoglobin A1c measurement Patrice Suarez Start: 05-12-2016 Hemoglobin glycosylated a1c Nupur Schworm Start: 05-12-2016 Lipid panel Nupur Schw orm Start: 05-12-2016 Lipid panel Patrice Schr oeder Start: 05-12-2016 MICROALBUMIN/Urine C reat Ratio Nupur Schworm Start: 05-12-2016 Transferase alanine amino alt sgpt Nupur Schworm Start: 05-11-2016 BS-Dip Nupur Schw orm Start: 05-11-2016 Glucose Meter Check Oliva di Schworm Start: 02-10-2016 Basic metabolic pane l calcium total Nupur Schworm Start: 02-10-2016 Hemoglobin A1c measurement Patrice Suarez Start: 02-10-2016 Hemoglobin glycosylated a1c Nupur Schworm Start: 02-10-2016 Lipid panel Nupur Schw orm Start: 02-10-2016 Lipid panel Patrice Schr oeder Start: 02-10-2016 MICROALBUMIN/Urine C reat Ratio Nupur Schworm Start: 11-11-2015 Assay of thyroid sti mulating hormone tsh Nupur Schworm Start: 11-11-2015 Assay of thyroxine total Nupur Schworm Start: 11-11-2015 Thyroid stimulating hormone measurement Patrice Suarez Start: 11-11-2015 Thyroxine measurement L wood Suarez Start: 11-04-2015 Basic metabolic pane l calcium total Nupur Schworm Start: 11-04-2015 Hemoglobin A1c measurement Patrice Suarez Start: 11-04-2015 Hemoglobin glycosylated a1c Nupur Schworm Start: 11-04-2015 Lipid panel Nupur Schw orm Start: 11-04-2015 Lipid panel Patrice Schr oeder Start: 11-04-2015 MICROALBUMIN/Urine C reat Ratio Nupur Schworm Start: 07-23-2015 Glucose measurement, quantitative Patrice Suarez Start: 07-23-2015 Glucose quantitative blood xcpt reagent strip Nupur Schworm Start: 07-23-2015 Hemoglobin A1c measurement Patrice Suarez Start: 07-23-2015 Hemoglobin glycosylated a1c Nupur Schworm Start: 07-23-2015 Lipid panel Nupur Schw orm Start: 07-23-2015 Lipid panel Patrice Schr oeder Start: 07-23-2015 MICROALBUMIN/Urine C reat Ratio Nupur Schworm Start: 04-22-2015 Assay of thyroid sti mulating hormone tsh Nupur Schworm Start: 04-22-2015 Assay of thyroxine total Nupur Schworm Start: 04-22-2015 Basic metabolic pane l calcium total Nupur Schworm Start: 04-22-2015 Hemoglobin A1c measurement Patricesophia Suarez Start: 04-22-2015 Hemoglobin glycosylated a1c Nupur Schworm Start: 04-22-2015 Thyroid stimulating hormone measurement Patricesophia Suarez Start: 04-22-2015 Thyroxine measurement L eroy Suarez Start: 01-22-2015 Alanine aminotransfe rase measurement Patricesophia Suarez Start: 01-22-2015 Basic metabolic pane l calcium total Nupur Schworm Start: 01-22-2015 Hemoglobin A1c measurement Patricesophia Suarez Start: 01-22-2015 Hemoglobin glycosylated a1c Nupur Schworm Start: 01-22-2015 Lipid panel Nupur Schw orm Start: 01-22-2015 Lipid panel Patrice Schr oeder Start: 01-22-2015 MICROALBUMIN/Urine C reat Ratio Nupur Schworm Start: 01-22-2015 Transferase alanine amino alt sgpt Nupur Schworm Start: 09-22-2014 Diabetic foot examination Nupur Schworm Start: 09-22-2014 Doc meds verified w/pt or re Nupur Schworm Start: 09-14-2014 Alanine aminotransfe rase measurement Patrice Suarez Start: 09-14-2014 Assay of thyroid sti mulating hormone tsh Nupur Schworm Start: 09-14-2014 Assay of thyroxine total Nupur Schworm Start: 09-14-2014 Basic metabolic pane l calcium total Nupur Schworm Start: 09-14-2014 Blood chemistry Patrice S escobaroeder Start: 09-14-2014 Hemoglobin glycosylated a1c Nupur Schworm Start: 09-14-2014 Lipid panel Nupur Schw orm Start: 09-14-2014 Lipid panel Patrice Schr oeder Start: 09-14-2014 MICROALBUMIN/Urine C reat Ratio Nupur Schworm Start: 09-14-2014 Thyroid stimulating hormone measurement Patrice Suarez Start: 09-14-2014 Total thyroxine measurement Patrice Choudharyeder Start: 09-14-2014 Transferase alanine amino alt sgpt Nupur Schworm Start: 06-16-2014 Assay of thyroid sti mulating hormone tsh Nupur Schworm Start: 06-16-2014 Assay of thyroxine total Nupur Schworm Start: 06-16-2014 Basic metabolic pane l calcium total Unpur Schworm Start: 06-16-2014 Blood chemistry Patrice S chroeder Start: 06-16-2014 Diabetic foot examination Nupur Schworm Start: 06-16-2014 Hemoglobin glycosylated a1c Nupur Schworm Start: 06-16-2014 Lipid panel Nupur Schw orm Start: 06-16-2014 Lipid panel Patrice Schr oeder Start: 06-16-2014 MICROALBUMIN/Urine C reat Ratio Nupur Schworm Start: 06-16-2014 Thyroid stimulating hormone measurement Patrice Choudharyeder Start: 06-16-2014 Total thyroxine measurement Patrice Choudharyeder Start: 03-18-2014 Basic metabolic pane l calcium total Nupur Schworm Start: 03-18-2014 Blood chemistry Patrice S chroeder Start: 03-18-2014 Hemoglobin glycosylated a1c Nupur Schworm Start: 03-18-2014 Lipid panel Nupur Schw orm Start: 03-18-2014 Lipid panel Patrice Schr oeder Start: 03-18-2014 MICROALBUMIN/Urine C reat Ratio Nupur Schworm Start: 03-17-2014 Diabetic foot examination Nupur Schworm Start: 12-16-2013 Diabetic foot examination Nupur Schworm Start: 12-16-2013 Doc meds verified w/pt or re Nupur Schworm Start: 12-16-2013 TOBACCO NON-USER Nupur Schworm Start: 12-01-2013 Assay of c-peptide Anisha i Schworm Start: 12-01-2013 Glucose measurement, quantitative Patrice Suarez Start: 12-01-2013 Glucose quantitative blood xcpt reagent strip Nupur Schworm Start: 12-01-2013 Immunoassay analyte quant radioimmunoassay Nupur Schworm Start: 12-01-2013 Insulin C-peptide measurement Patrice Suarez Start: 12-01-2013 Radioimmunoassay Patrice Suarez Start: 07-21-2013 Alanine aminotransfe rase measurement Patrice Suarez Start: 07-21-2013 Assay of thyroid sti mulating hormone tsh Nupur Schworm Start: 07-21-2013 Assay of thyroxine total Nupur Schworm Start: 07-21-2013 Glucose measurement, quantitative Patrice Choudharyeder Start: 07-21-2013 Glucose quantitative blood xcpt reagent strip Nupur Schworm Start: 07-21-2013 Hemoglobin glycosylated a1c Nupur Schworm Start: 07-21-2013 Lipid panel Nupur Schw orm Start: 07-21-2013 Lipid panel Patrice Schr oeder Start: 07-21-2013 MICROALBUMIN/Urine C reat Ratio Nupur Schworm Start: 07-21-2013 Thyroid stimulating hormone measurement Patrice Suarez Start: 07-21-2013 Total thyroxine measurement Patrice Suarez Start: 07-21-2013 Transferase alanine amino alt sgpt Nupur Schworm Start: 03-21-2013 Alanine aminotransfe rase measurement Patrice Suarez Start: 03-21-2013 Assay of thyroid sti mulating hormone tsh Nupur Schworm Start: 03-21-2013 Assay of thyroxine total Nupur Schworm Start: 03-21-2013 Glucose measurement, quantitative Patrice Suarez Start: 03-21-2013 Glucose quantitative blood xcpt reagent strip Nupur Schworm Start: 03-21-2013 Hemoglobin glycosylated a1c Nupur Schworm Start: 03-21-2013 Lipid panel Nupur Schw orm Start: 03-21-2013 Lipid panel Patrice Schr oeder Start: 03-21-2013 MICROALBUMIN/Urine C reat Ratio Nupur Schworm Start: 03-21-2013 Thyroid stimulating hormone measurement Patrice Suarez Start: 03-21-2013 Total thyroxine measurement Patrice Suarez Start: 03-21-2013 Transferase alanine amino alt sgpt Nupur Schworm Plan of Treatment Date Care Activity Detail Author Start: 11-01-2023 Assay of thyroid stimulating hormone tsh TSH [employer] [facility] Start: 11-01-2023 Assay of thyroxine total T4 [employer] [facility] Start: 11-01-2023 Glucose quantitative blood xcpt reagent strip GLUCOSE [place] [employer] [facility] Start: 11-01-2023 Hemoglobin glycosyla tereso a1c Hemoglobin A1C [place] [employer] Start: 11-01-2023 Lipid panel LIPID PROFILE [email or web address] [facility] Start: 08-02-2023 Assay of thyroid stimulating hormone tsh TSH [employer] Start: 08-02-2023 Assay of thyroxine total T4 [email or web address] [facility] Start: 08-02-2023 Basic metabolic pane l calcium total Chem 8 [employer] [facility] Start: 08-02-2023 Continuous glucose monitoring analysis i&r GLUCOSE MONITOR INTERP AND REPORT [employer] [facility] Start: 08-02-2023 Hemoglobin glycosyla tereso a1c Hemoglobin A1C [email or web address] [facility] Start: 05-02-2023 Basic metabolic pane l calcium total Chem 8 [employer] [facility] Start: 05-02-2023 Continuous glucose monitoring analysis i&r GLUCOSE MONITOR INTERP AND REPORT [employer] [facility] Start: 05-02-2023 Hemoglobin glycosyla tereso a1c Hemoglobin A1C [email or web address] [facility] Start: 05-02-2023 Lipid panel LIPID PROFILE [email or web address] [facility] Start: 01-30-2023 Basic metabolic pane l calcium total Chem 8 [employer] [facility] Start: 01-30-2023 Continuous glucose monitoring analysis i&r GLUCOSE MONITOR INTERP AND REPORT [email or web address] [facility] Start: 01-30-2023 Hemoglobin glycosyla tereso a1c Hemoglobin A1C [email or web address] [facility] Start: 10-31-2022 Assay of thyroid stimulating hormone tsh TSH [employer] Start: 10-31-2022 Assay of thyroxine total T4 [email or web address] [facility] Start: 10-31-2022 Basic metabolic pane l calcium total Chem 8 [employer] Start: 10-31-2022 Continuous glucose monitoring analysis i&r GLUCOSE MONITOR INTERP AND REPORT [employer] Start: 10-31-2022 Hemoglobin glycosyla tereso a1c Hemoglobin A1C [employer] Start: 10-31-2022 Lipid panel LIPID PROFILE [employer] Start: 10-31-2022 [facility] Start: 08-02-2022 Basic metabolic pane l calcium total Chem 8 [employer] Start: 08-02-2022 Continuous glucose monitoring analysis i&r GLUCOSE MONITOR INTERP AND REPORT [employer] Start: 08-02-2022 Hemoglobin glycosyla tereso a1c Hemoglobin A1C [employer] Start: 08-02-2022 Lipid panel LIPID PROFILE [facility] Start: 08-02-2022 Transferase alanine amino alt sgpt SGPT (ALT) [facility] Start: 07-10-2022 End: 07-10-2022 EYE VITRECTOMY EYE VITRECTOMY Epiretinal membrane (ERM) of right eye 07/10/2022 11:[address] [facility] Start: 05-02-2022 Continuous glucose monitoring analysis i&r GLUCOSE MONITOR INTERP AND REPORT [facility] Start: 02-12-2022 Influenza vaccination Flu vaccine (# 1) [facility] Start: 01-30-2022 Basic metabolic pane l calcium total Chem 8 [facility] Start: 01-30-2022 Continuous glucose monitoring analysis i&r GLUCOSE MONITOR INTERP AND REPORT [facility] Start: 01-30-2022 Hemoglobin glycosyla tereso a1c Hemoglobin A1C [email or web address] Start: 01-30-2022 Lipid panel LIPID PROFILE [place] [facility] Start: 10-31-2021 Assay of thyroid stimulating hormone tsh TSH [employer] [facility] Start: 10-31-2021 Assay of thyroxine total T4 [email or web address] [facility] Start: 10-31-2021 Basic metabolic pane l calcium total Chem 8 [email or web address] [facility] Start: 10-31-2021 Continuous glucose monitoring analysis i&r GLUCOSE MONITOR INTERP AND REPORT [email or web address] [facility] Start: 10-31-2021 Hemoglobin glycosyla tereso a1c Hemoglobin A1C [place] [facility] Start: 08-02-2021 Assay of thyroid stimulating hormone tsh TSH [email or web address] [facility] Start: 08-02-2021 Assay of thyroxine total T4 [email or web address] [facility] Start: 08-02-2021 Basic metabolic pane l calcium total Chem 8 [email or web address] [facility] Start: 08-02-2021 Continuous glucose monitoring analysis i&r GLUCOSE MONITOR INTERP AND REPORT [email or web address] [facility] Start: 05-05-2021 Assay of thyroid stimulating hormone tsh TSH [email or web address] [facility] Start: 05-05-2021 Assay of thyroxine total T4 [email or web address] [facility] Start: 05-05-2021 Basic metabolic pane l calcium total Chem 8 [employer] Start: 05-05-2021 Hemoglobin glycosyla tereso a1c Hemoglobin A1C [email or web address] Start: 02-02-2021 Continuous glucose monitoring analysis i&r GLUCOSE MONITOR INTERP AND REPORT [facility] Start: 01-19-2021 Basic metabolic pane l calcium total Chem 8 [email or web address] Start: 01-19-2021 HbA1c (Bld) [Mass fraction] Hemoglobin A1C [facility] Start: 01-19-2021 Lipid panel LIPID PROFILE [facility] Start: 10-20-2020 Continuous glucose monitoring analysis i&r GLUCOSE MONITOR INTERP AND REPORT [facility] Start: 10-20-2020 Glucose [Mass/Vol] GLUCOSE MON ITOR INTERP AND REPORT [facility] Start: 10-20-2020 T4 [Mass/Vol] T4 [facility] Start: 10-20-2020 TSH Qn TSH [facility] Start: 10-19-2020 Glucose quantitative blood xcpt reagent strip GLUCOSE 2 HR Post Prandial [facility] Start: 10-19-2020 HbA1c (Bld) [Mass fraction] Hemoglobin A1C [facility] Start: 07-21-2020 Glucose [Mass/Vol] GLUCOSE MON ITOR INTERP AND REPORT [facility] Start: 07-21-2020 SARS-Kuhn Virus-2 IgG Antibody to [facility] SARS-Kuhn Virus-2 IgG Antibody to [facility] Start: 07-16-2020 Basic metabolic pane l calcium total Chem 8 [facility] Start: 07-16-2020 HbA1c (Bld) [Mass fraction] Hemoglobin A1C [facility] Start: 07-16-2020 Lipid panel LIPID PROFILE [place] [facility] Start: 07-16-2020 T4 [Mass/Vol] T4 [place] [facility] Start: 07-16-2020 TSH Qn TSH [place] [facility] Start: 04-15-2020 Basic metabolic pane l calcium total Chem 8 [facility] Start: 04-15-2020 HbA1c (Bld) [Mass fraction] Hemoglobin A1C [place] [facility] Start: 04-15-2020 Lipid panel Lipid profile [place] [facility] Start: 04-14-2020 Urate [Mass/Vol] Uric acid, serum Bl [facility] [employer] Start: 11-20-2019 Basic metabolic pane l calcium total Chem 8 [place] [facility] Start: 11-20-2019 HbA1c (Bld) [Mass fraction] Hemoglobin A1C [place] [facility] Start: 11-20-2019 T4 [Mass/Vol] T4 [place] [facility] Start: 11-20-2019 TSH Qn TSH [email or web address] [facility] Start: 08-22-2019 Basic metabolic pane l calcium total Chem 8 [place] [facility] Start: 08-22-2019 HbA1c (Bld) [Mass fraction] Hemoglobin A1C [place] [employer] Start: 08-22-2019 Lipid panel Lipid profile [place] [employer] Start: 05-15-2019 Basic metabolic pane l calcium total Chem 8 [employer] Start: 05-15-2019 HbA1c (Bld) [Mass fraction] Hemoglobin A1C [facility] Start: 02-28-2019 Basic metabolic pane l calcium total [facility] Start: 02-28-2019 HbA1c (Bld) [Mass fraction] Hemoglobin A1C [facility] Start: 02-28-2019 Hemoglobin glycosyla tereso a1c GLYCOSYLATED HEMOGLOBIN TEST [facility] Start: 02-28-2019 Lipid panel [facility] Start: 02-28-2019 T4 [Mass/Vol] T4 [facility] Start: 02-28-2019 TSH Qn TSH [facility] Start: 02-12-2019 Blood count complete automated CBC PLATELET COUNT; AUTOMATED [facility] Start: 02-12-2019 Glucose [Mass/Vol] GLUCOSE MON ITOR INTERP AND REPORT [facility] Start: 05-30-2018 Glucose [Mass/Vol] GLUCOSE MON ITOR INTERP AND REPORT [facility] Start: 11-07-1967 DTaP/Tdap/Td vaccine (1 - Tdap) DTaP/Tdap/Td vaccine (1 - Tdap) [email or web address] Start: [birth year]-08-1949 COVID-19 Vaccine (#1) COVID-19 Vacci ne (#1) [email or web address] End: 07-10-2022 POC CHEM8 INCLUDES CALC. ANION GAP POC CHEM8 INCLUDES CALC. ANION GAP Point of Care Testing STAT One Time for 1 Occurrences starting 07/10/2022 until 07/10/2022 [email or web address] Comment on above: One Time for 1 Occur rences starting 07/10/2022 until 07/10/2022 Unhealing Lesion on Left leg [facility] Immunizations Immunization Date Immunization Notes Care Provider Kaila aguilar 05-22-2019 pneumococcal conjuga te vaccine, 13 valent; Translations: [PNEUMOCOCCAL VACC 13 CASSANDRA IM] Nupur Lacey [facility] 05-22-2019 PCV 13; Translations : [Administration of pneumococcal vaccine] Patrice Suarez [facility] Payers Date Payer Category Payer Unknown [id number] 1961 Medicare [id number] 2.1 [id number] 1961 Unknown [id number] 1950 Unknown [id number] [id number] 1950 Unknown [id number] 1950 Unknown [id number] 1948 Unknown [id number] Unknown [id number] 2. [id number] Unknown [id number] 2. [id number] Social History Date Type Detail Facility Start: Never smoker [facility] Start: Caffeine [facility] Start: 07-05-2022 Tobacco use and exposure Smokeless tobacco non-user [facility] [employer] Phone: Start: 07-10-2022 Alcohol intake Lifetime non-d lopez (finding) [facility] [employer] Phone: Start: 1950 Sex Assigned At Not on file [facility] [employer] Phone: Start: 06-25-2022 End: 07-05-2022 Exposure to SARS-CoV-2 (event) Not sure [facility] [employer] Phone: Sex Assigned At Sex Assigned At [facility] NEGATED: Highlighted rowStart: NINF History of tobacco use Passive smoker [facility] [employer] Phone: Medical Equipment Procedure Code Equipment Code Equipment Origin al Text Equipment Identifier Dates TEST 3 TIMES BIANCA LY BEFORE & AFTER MEALS AND NEEDED. DX E10.9 TYPE 1 DIABETES INSULIN TREATED PUMP Start: 08-01-2021 End: 08-23-2022 Evaluation note 06-20-2023 Note Date & Type Note Facility 06-20-2023 Evaluation note Encounter Date Diagnosis Assessment Notes Jun, Impacted cerumen of left ear (ICD-10 - H61.22) Ear lavage in office today. Discussed proper ear hygiene. Avoid putting anything inside the ear such as Q-tips, etc. Patient instructged to use OTC wax softeners (Debrox) through the weekend and follow-up next week for further irrigation. Immediate eval for ear drainage, pain, loss of hearing, ringing, dizziness, fever, redness, swelling, and pain behind the ear, headache, neck pain, or any other new or concerning symptoms. Patient verbalizes understanding and is agreeable to treatment plan. [facility] Evaluation note 06-13-2023 Note Date & Type Note Facility 06-13-2023 Evaluation note Encounter Date Diagnosis Assessment Notes May, Type 1 diabetes mellitus without complication (ICD-10 - E10.9) Follows with Endocrinology every [address] Pan in [facility]. Last A1c was 6.0. Reports that she has more low blood sugar episodes than high. Doing well. May, Acquired hypothyroidism (ICD-10 - E03.9) Asymptomatic at this time, Denies any unexplained weight change, hair loss or fatigue. Patient to continue with above medication and we will continue to monitor through routine blood work, follows with endoctinology May, Decreased hearing of left ear (ICD-10 - H91.92) Impacted with Cerumen May, Impacted cerumen of left ear (ICD-10 - H61.22) Ear lavage in office today. Discussed proper ear hygiene. Avoid putting anything inside the ear such as Q-tips, etc. Patient instructged to use OTC wax softeners (Debrox) through the weekend and follow-up next week for further irrigation. Immediate eval for ear drainage, pain, loss of hearing, ringing, dizziness, fever, redness, swelling, and pain behind the ear, headache, neck pain, or any other new or concerning symptoms. Patient verbalizes understanding and is agreeable to treatment plan. May, Right ear impacted cerumen (ICD-10 - H61.21) Ear lavage in office today. Discussed proper ear hygiene. Avoid putting anything inside the ear such as Q-tips, etc. Patient may use OTC wax softeners (Debrox) as directed as needed. Follow up with as needed. Immediate eval for ear drainage, pain, loss of hearing, ringing, dizziness, fever, redness, swelling, and pain behind the ear, headache, neck pain, or any other new or concerning symptoms. Patient verbalizes understanding and is agreeable to treatment plan. May, Heart murmur (ICD-10 - R01.1) New, pt unware that she has ever had a murnur, notes that her 2 sisters have heart murmurs. May, History of colon cancer (ICD-10 - Z85.038) Follows with Dr. Voss, has an oming a appointment in July. [facility] Hospital Discharge instructions 07-10-2022 Discharge Instructions Note Date & Type Note Facility 07-10-2022 Hospital Discharg e instructions Jaqueline Fair RN - 07/10/2022 12:37 PM EST No alcoholic beverages, no driving or operating machinery, no making important decisions for 24 hours. Children should maintain quiet play ( games, movies, books ) for 24 hours. You may have a normal diet but should eat lightly day of surgery. Drink plenty of fluids. Urinate within 8 hours after surgery, if unable to urinate call your doctor documented in this encounter [employer] [employer] Phone: Progress note 10-06-2020 Note Date & Type Note Facility 10-06-2020 Note HNO ID: [id number] Author: Farrah Dorsey) Delgado Service: ? Author Type: Physician Type: Progress Notes Filed: 10/06/2020 1:33 PM Note Text: CHIEF COMPLAINT: right colon cancer HISTORY OF PRESENT ILLNESS: Mariana Burk is a 68 year old woman who presents in follow up of above. History as noted below 12/2014 : diagnosed with anemia, lower endoscopy discovers right sided colon cancer, had ileocolic resection with anastomosis. Pathologic findings noted [id number] right colon cancer : Preoperative CEA was measured at 90, postoperative CEA remained somewhat elevated at 17.4 : In January 2015 MRI of the liver noted 1.1 cm left medial segment nodule and radiographic appearance argued against hemangioma : Discussed with GI oncology on [facility] and surgical oncology with plan to offer 6 cycles of therapy and consider resection 02/2015 : Started FOLFOX treated with 7 cycles with improvement of her CEA MRI noted decrease in size of lesion 07/2015 : Resection completed by Dr. Perry, pathology did not identify malignancy 10/2015 : Completed 12 cycles of FOLFOX and has since been in observation, CEA has ranged between 4 and 5.2 01/2018 : has consultation with Dr. Jin for IPMN- recommend follow up MRI History of present illness: Mariana is here for follow-up. Overall doing quite well. Denies fever chills night sweats or abdominal pains. Colonoscopy December 2018 normal with a clean anastomosis. This was performed by Dr. English. 09/2020 CT without any change in the pancreatic cyst and or evidence of metastatic disease. PAST MEDICAL HISTORY Diagnosis Date - Hyperlipidemia - Hypertension - Post-menopausal - Type 1 diabetes mellitus (HCC) PAST SURGICAL HISTORY Procedure Laterality Date - SECTION HX - COLECTOMY PARTIAL W ANASTOM Right 01/06/2015 For colon cancer - TONSILLECTOMY HX Review of Social History includes: Tobacco Use: Never Alcohol Use: No FAMILY HISTORY Problem Relation Age of Onset - Cancer Father - other (CHF [Other]) Mother Current Outpatient Medications Medication Sig Dispense Refill - ubidecarenone Q-10 (CO Q-10) 10 mg cap Take by mouth twice daily. - APIDRA U-100 INSULIN 100 unit/mL soln 60 UNITS DAILY SCOTTIE THE SKIN IN INSULIN PUMP AND NEEDED PER INJECTION. MAX DAILY 73 UNITS 3 - levothyroxine (SYNTHROID) 112 mcg tablet Take 112 mcg by mouth daily before breakfast. - iv contrast (will be provided with radiology test) CT Chest ABD/PEL-Inject, intravenously, once for 1 dose.No IV access, insert saline lock prior to the beginning of sedation, infusion, injection of imaging exam. Discontinue saline lock post exam. If Pt. has a central line or IVAD, may access for administration according to line specific nursing protocol. Once exam is complete flush line and de-access according to line specific nursing protocol in the CT contrast administration guidelines link. 1 Each 0 - enteric contrast (will be provided with radiology test) For CT CHESTABD/PEL W IVCON Routine order Administer, As Directed One Time Only, via Oral, Rectal, both Oral and Rectal, Enteric Tube, Stoma or Indwelling Catheter, Enteric Contrast as designated per enteric contrast guidelines 1 Each 0 No current facility-administered medications for this visit. REVIEW OF SYSTEMS: CONSTITUTIONAL: Weight appetite energy and activity level stable NEURO: No current headaches, or vision changes CV: no chest pain, palpitations or leg swelling PULM: no cough or hemoptysis or dyspnea ABD: no recent bloating or change in bowel habits : no hematuria or dysuria PSYCHE: no depression SKIN: no rash, no sores HEENT: no mouth sores or difficulty swallowing BP 180/79 Pulse 84 Temp 36.1 ?C (97 ?F) (Temporal) Resp 16 Ht 152.4 cm (5') Wt 69.7 kg (153 lb 9.6 oz) SpO2 94% BMI 30.00 kg/m? General: Alert and oriented, no distress, pleasant and cooperative. HEENT: no sores or thrush CV: RRR normal s1 s2 PULM:CTA B EXT: no c/c/e SKIN: no bruise rash or petechaie PSYCHE: normal mood and affect Lymph: no cervical, supraclavicular or axillary adenopathy ABD: NT ND no organomegaly Right breast exam no dominant masses. Increasing nodularity. No axillary adenopathy. IMAGING 05/02/2018 ?CT ABDOMEN/PELVIS Impression IMPRESSION: 1. ?1.0 cm poorly defined hypodense lesion within the pancreatic uncinate process appears stable. 2. ?Approximate 7 mm cystic lesion within the pancreatic neck appears slightly more conspicuous, however felt to most likely relate to a small sidebranch IPMN or sequela of prior pancreatitis. ?Correlation with continued follow-up examinations is recommended. 3. ?Mild bilateral pelvocaliectasis and mild bilateral ureteral dilatation, the etiology of which is uncertain. 05/02/2018 ?CT CHEST Impression IMPRESSION: Stable CT examination of the chest. MRI of the Pancreas: 01/22/2018 IMPRESSION: MULTIPLE SMALL CYSTIC BERG (more content not included)... [facility] Progress note 09-30-2020 Note Date & Type Note Facility 09-30-2020 Note HNO ID: [id number] Author: Ramon Camp (Tech) Service: ? Author Type: Receiving And Processing Supervisor Type: Progress Notes Filed: 09/30/2020 11:38 AM Note Text: Radiology Service Progress Note PATIENT NAME: Mariana Burk DATE OF SERVICE: September 30, 2020 TIME: 10:22 AM PATIENT IDENTITY VERIFICATION COMPLETED USING TWO (2) IDENTIFIERS: Name and Date of confirmed by patient verbally. FALL SCREENING: Has the patient had 2 falls in the last year or 1 fall with injury or currently using an Ambulatory Assistive Device (Walker, Cane, Wheelchair, Crutches, etc.)? No PATIENT GENDER DATA: Female. status: : No status: NO. PATIENT RELEVANT IMPLANT DATA REVIEWED: Not Applicable RADIOLOGY DEPARTMENT: CT; Exam(s) Completed: Chest Abdomen Pelvis With IV and Oral contrast PERIPHERAL IV DATA: Site assessment: Clean,Dry and Intact, Site disposition 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 SIGNED BY: Ramon Camp September 30, 2020 10:22 AM [facility] Evaluation note Note Date & Type Note Facility Evaluation note Diagnosis Macular pucker, right eye- Primary Macular puckering of retina documented in this encounter [facility] [employer] Work Phone: History general Narrative - Reported Note Date & Type Note Facility History general Narrative - Reported Type Medical History Type 1 diabetes Medical History Hypothyroid Medical History Colon CA- 2015 Surgical History Liver resection Surgical History Breast cyst removed- non cancer ous Surgical History x2 [facility] Summary Purpose Family History No Family History Records FoundNo Family History Records FoundNo Family History Records FoundNo Family History Records FoundNo Family History Records FoundNo Family History Records Found Advance Directives No Advanced Directives Records FoundNo Advanced Directives Records FoundNo Advanced Directives Records FoundNo Advanced Directives Records FoundNo Advanced Directives Records FoundNo Advanced Directives Records Found Additional Source Comments INFORMATION SOURCE (unrecogn ized section and content) DATE CREATED AUTHOR 07/22/2020 [facility] DATE CREATED AUTHOR AUTHOR'S ORGANIZ ATION 09/05/2021 [facility] DATE CREATED AUTHOR AUTHOR'S ORGANIZ ATION 07/10/2022 [facility] DATE CREATED AUTHOR AUTHOR'S ORGANIZ ATION 11/18/2022 [facility] DATE CREATED AUTHOR AUTHOR'S ORGANIZ ATION 08/18/2023 [facility] DATE CREATED AUTHOR AUTHOR'S ORGANIZ ATION 08/18/2023 [facility] Reason for Visit (unrecogniz ed section and content) Specialty Diagnoses / Procedures Referred By Az laurent Referred To Contact Diagnoses Epiretinal membrane (ERM) of right eye EPIRETINAL MEMBRANE RIGHT EYE Procedures LA OFFICE/OUTPT VISIT,PROCEDURE ONLY LA COLONOSCOPY FLX DX W/COLLJ SPEC WHEN PFRMD VITRECTOMY 25 GAUAGE, MEMBRANE PEEL Eyal Sanchez MD [address], [address] [place] [address] [facility] [address] [place] [address] Referral ID Status Reason Start Date Expiration Date Visits Re quested Visits Authorized [id number] 1 1 PRN Active and Recently Administ ered Medications (unrecognized section and content) Medication Order 07/08/2022 07/09/2022 07/10/2022 balanced salts plus (BSS) 500 mL (CANCELED) PRN, Starting on Sat07/10/22 at 1141, Intra-op 1141 (Given - Provid er: Eyal Sanchez MD - Comment: HANGING SOLUTION) balanced salts plus (BSS) ophthalmic solution (CANCELED) PRN, Starting on Sat07/10/22 at 1149, Intra-op 1149 (Given - Provid er: Eyal Sanchez MD - Comment: ICG) bupivacaine (PF) (MARCAINE) 0.75 % 2.5 mL, lidocaine PF 2 % 2.5 mL (CANCELED) PRN, Starting on Sat07/10/22 at 1135, Intra-op 1135 (Given - Provid er: Eyal Sanchez MD - Comment: BLOCK PRIOR TO START OF PROCEDURE) cefTAZidime (FORTAZ) injection (CANCELED) PRN, Starting on Sat07/10/22 at 1143, Until Sat07/10/22 at 1202, Intra-op 1143 (Given - Provid er: Eyal Sanchez MD - Comment: DILUTED WITH 5 ML STERILE WATER) cyclopentolate (CYCLOGYL) 1 % ophthalmic solution 1 drop (COMPLETED) 1 drop, Right Eye, EVERY 5 MIN PRN, 3 doses, Starting on Sat07/10/22 at 0942, Until 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, 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, 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, Pre-op (day of surgery) 1021 (Given - Provid er: Puja Colin RN)1027 (Given - Provider: Puja Colin RN)1047 (Given - Provider: Puja Colin RN) cyclopentolate (CYCLOGYL) 1 % ophthalmic solution (CANCELED) PRN, Starting on Sat07/10/22 at 1145, Until Sat07/10/22 at 1202, Intra-op 1145 (Given - Provid er: Eyal Sanchez MD - Comment: PRIOR DRESSING) dextrose 50 % IV solution (CANCELED) PRN, Starting on Sat07/10/22 at 1150, Until Sat07/10/22 at 1202, Intra-op 1150 (Given - Provid er: Eyal Sanchez MD - Comment: ICG) erythromycin (ROMYCIN) ophthalmic ointment (CANCELED) PRN, Starting on Sat07/10/22 at 1144, Intra-op 1144 (Given - Provid er: Eyal Sanchez MD - Comment: PRIOR DRESSING) indocyanine green (IC-GREEN) syringe (CANCELED) PRN, Starting on Sat07/10/22 at 1146, Until Sat07/10/22 at 1202, Intra-op 1146 (Given - Provid er: Eyal Sanchez MD - Comment: DILUTED WITH 1 ML STERILE WATER, 2 ML BSS, 2 ML DEXTROSE 50% TO MAKE IT 5 MG/ML) ofloxacin (OCUFLOX) 0.3 % solution 1 drop (COMPLETED) 1 drop, Right Eye, EVERY 5 MIN PRN, 3 doses, Starting on Sat07/10/22 at 0942, Until 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, 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, 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 (day of surgery) 1021 (Given - Provid er: Puja Colin RN)1027 (Given - Provider: Puja Colin RN)1047 (Given - Provider: uPja Colin RN) phenylephrine (MITALI-SYNEPHRINE) 10 % ophthalmic solution 1 drop (COMPLETED) 1 drop, Right Eye, EVERY 5 MIN PRN, 3 doses, Starting on Sat07/10/22 at 0942, Until 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, 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 07-10-22, Pre-op (day of surgery) 1022 (Given - Provid er: Puja Colin RN)1027 (Given - Provider: Puja Colin RN)1047 (Given - Provider: Puja Colin RN) sterile water injection (CANCELED) PRN, Starting on Sat07/10/22 at 1144, Until Sat07/10/22 at 1202, Intra-op 1144 (Given - Provid er: Eyal Sanchez MD - Comment: RACHAEL)1149 (Given - Provider: Eyal Sanchez MD - Comment: ANTWAN) Care Teams (unrecognized sec tion and content) Concessions Manager Relationship Specialty Start Date End Date Anatoliy Mckeon [address] [place] [address] PCP - General Internal Medicine 07/03/22 FOR RECORDS PERTAINING TO PATIENTS WHO ARE OR HAVE BEEN ENROLLED IN A CHEMICAL DEPENDENCY/SUBSTANCEABUSE PROGRAM, SOME INFORMATION MAY BE OMITTED. This clinical summary was aggregated from multiple sources. Caution should be exercised in using it in the provision of clinical care. This summary normalizes information from multiple sources, and as a consequence, information in this document may materially change the coding, format and clinical context of patient data. In addition, data may be omitted in some cases. CLINICAL DECISIONS SHOULD BE BASED ON THE PRIMARY CLINICAL RECORDS. [employer] [facility]. provides no warranty or guarantee of the accuracy or completeness of information in this document.
[2023-09-04 07:15] VITALS: BP 145/110; PULSE 92; RESP 18; TEMP 36.2; O2SAT 98; BMI 29.4
[2023-09-04] MEDS: LACTATED RINGER'S SOLUTION 1,000 ML 50 ML IV (07:39)
[2023-09-04 09:13] VITALS: BP 119/56; PULSE 66; RESP 14; TEMP 36.3; O2SAT 98
--- NOTE | 2023-09-04 09:15 | PM.GSPRC ---
Date of procedure: 09/04/23 Indications for Procedure: chronic diarrhea History of colon cancer status post ileocolectomy two thousand fifteen Pre-op diagnosis: chronic diarrhea; history of colon cancer status post ileocolectomy 2014 Post-op diagnosis: same as pre-op Procedure: Colonoscopy With biopsies random colon to r/o colitis Findings: normal colon and and ileocolic anastomosis Anesthesia: MAC Surgeon: Gage Woo Procedure Summary: PROCEDURE: The patient was taken to the Endoscopy Suite, placed in the left lateral recumbent position, given IV sedation as above. A rectal digital exam was performed. The sphincter tone was found to be normal. No rectal masses were appreciated. The Olympus video colonoscope was advanced under direct visualization to the rectum, sigmoid colon, descending colon, transverse colon and ascending colon to the ileocolic anastomosis which was traversed into the terminal ileum. The scope was slowly withdrawn with air being desufflated as it was withdrawn. No gross tumors, polyps or diverticula were seen.random biopsies were taken and ascending colon transverse colon and ascending colon to rule out collagenous colitis. The patient tolerated the procedure well and went to the Recovery Area in satisfactory condition. I don't recommend the patient have another colonoscopy unless she should have problems due to age. Estimated blood loss (mL): 0 Specimens: random colon biopsies Complications: No Condition: stable Disposition: PACU
[2023-09-04 09:28] VITALS: BP 171/66; PULSE 75; RESP 18; O2SAT 99
[2023-09-04 09:43] VITALS: BP 169/74; PULSE 71; RESP 16; O2SAT 98
== END 2023-09-04 09:52 | disposition home or self-care (01) ==
PROVIDERS: PCP Internal Medicine; Visit Provider Surgery
PROC: (CPT 45380; principal; 2023-09-04 08:15)
DX: R19.7 Diarrhea, unspecified (principal); R10.30 Lower abdominal pain, unspecified; Z85.038 Personal history of other malignant neoplasm of large intestine; Z85.05 Personal history of malignant neoplasm of liver; E10.9 Type 1 diabetes mellitus without complications; M19.90 Unspecified osteoarthritis, unspecified site; I10 Essential (primary) hypertension; E03.9 Hypothyroidism, unspecified; Z90.49 Acquired absence of other specified parts of digestive tract; Z79.4 Long term (current) use of insulin; Z79.899 Other long term (current) drug therapy
CPT/HCPCS: 45380; 88305; J2704

== ENCOUNTER 2023-12-26 20:56 | Emergency (ER) | payer MEDICARE, OTHER, SELFPAY ==
--- OUTSIDE RECORDS SUMMARY | 2023-12-26 21:05 | XMS_ITS | CCD ---
Author Organization [facility] Inform ion [facility] Care Team Providers Care 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 [employer] Name Role Phone Nupur Lacey S Primary Care Physician Unavaila marilou Suarez, Patrice Schwartz Unavailable Unavailable ZacharyLuciana Primary Care Physician Unavaila marilou Choudharyeder, Patrice Schwartz Primary Care Physician Reuben montenegro Schworm, [facility] S Primary Care Physician Unavaila ble Schworm, [facility] Primary Care Physician Unavaila ble Zachary, Luciana Primary Care Physician Unavaila marilou Suarez, Patrice Schwartz Primary Care Physician Patrice Orellana Primary Care Physician Reuben Lacey, [facility] S Primary Care Physician Unavaila ble Schworm, [facility] S Primary Care Physician Unavaila ble Schworm, [facility] S Primary Care Physician Unavaila ble Schworm, [facility] S Primary Care Physician Unavaila marilou Suarez, Patrice Schwartz Primary Care Physician Patrice Orellana Unavailable Unavailable Schworm, [facility] Primary Care Physician Unavaila ble Schworm, [facility] S Primary Care Physician Unavaila Patrice Tom Primary Care Physician Anatoliy Hdz Primary Care Provider ANATOLIY MCKEON Primary Care Unavailable EYAL SANCHEZ Admitting Unavailable EYAL SANCHEZ Attending Unavailable Patrice Suarez Primary Care Physician Bebeto Collins Primary Care Physician Bebeto Collins Primary Care Physician Reuben SEVILLA, DR CHINEDU [place] Attending Katy SEVILLA, DR CHINEDU [employer] [...] Referring Unavailable ANATOLIY MCKEON Primary Care Unavailable DO Paulette Voss Attending Provider Anatoliy Mckeon MD Primary Care Provider Paulette Voss Attending Unavailable Paulette Voss Admitting Unavailable Allergies Allergy Classification Reported Allergen(s) Allergy Type Date of Onset Reaction(s) Facility HMG-CoA Reductase Inhibitors (statins) (1 source) Hmg-Coa Reductase Inhibitors (Statins) Drug Allergy myalgias, jaw tightens re[facility]D Comment on above: has taken simvastati n and atorvastatin Latex (1 source) Latex Substance Allergy re3D (20 sources) Hmg-Coa Reductase Inhibitors (Statins); Translations: [XNFLGPP-CER-KAI REDUCTASE INHIBITORS] Allergy to substance (disorder) 3 myalgias, jaw tightens [facility] Comment on above: has taken simvastati n and atorvastatin (20 sources) Latex; Translations: [latex] Allergy to substance (disorder) 9 Rash [facility] (1 source) Desonide Drug Allergy [facility] (4 sources) ADHESIVE TAPE-SILICONES; Translations: [ADHESIVE TAPE-SILICONES] Propensity to adverse reactions to drug (disorder) 7 [facility] (1 source) Unable to Assess Drug allergy (disorder) 9 [facility] Rep[facility] Medications Current Medications Medication Drug Class(es) Dates Sig (Normalized) Sig (Original) b complex vitamins capsule (1 source) take 1 capsule by mouth at bedtime b complex vitamins capsule Take 1 capsule by mouth in the morning and at bedtime 0 Active B complex-vitamin C-folic acid (NEPHROCAP) 1 mg capsule (2 sources) take 1 capsule by mouth in the morning B complex-vitamin C-folic acid (NEPHROCAP) 1 mg capsule Take 1 capsule by mouth in the morning and 1 capsule before bedtime. 0 Active cholecalciferol 0.025 mg oral capsule (20 sources) Vitamin D take 1 capsule by mouth in the morning, then take 1 capsule by mouth at bedtime cholecalciferol, vitamin D3, (VITAMIN D3) 25 mcg (1,000 unit) capsule Take 1 capsule (1,000 Units total) by mouth in the morning and 1 capsule (1,000 Units total) before bedtime. 0 Active take 2 capsules by m outh once daily Vitamin D3 25 mcg (1,000 [...] by mouth 2 times daily 0 Active cinnamon bark 500 mg oral capsule (14 sources) take 2 capsules by m outh in the morning cinnamon bark 500 mg capsule Take 2 capsules (1,000 mg total) by mouth in the morning. 0 Active take 2 capsules by mouth twice d aily Cinnamon 500 MG CAPS Take 1,000 mg by mouth 2 times daily 0 Active Insulin Infusion Pump LAKHWINDER (1 source) Insulin Infusion Pump LAKHWINDER Inject into the skin Apidra insulin , dose varies 0 Active insulin glulisine, human 100 unt/ml injectable solution (20 sources) Insulin Analog Start: 12-03-2023 Insulin Glulisine U-100 Active CNTSUBQINF As Directed December 03, 2023 12:00am Start: 09-25-2022 inject 100 [IU] by s ubcutaneous injection [...] MAX 73 UNITS PER DAY duplicate entry insulin glulisin e (APIDRA) 100 unit/mL insulin pen Inject under the skin. Insulin pump and sensor 0 Active Apidra 100 UNIT/ ML as directed Injection Insulin pump Active levothyroxine sodium 0.1 mg oral tablet (20 sources) l-Thyroxine Start: 12-03-2023 take 1 tablet by mouth once daily in the morning, then take 0.5 tablet by mouth once daily Levothyroxine Active 0 PO Daily December 03, 2023 12:00am 1 tablet in the morning on an empty stomach and 0.5 tablet Saturday Orally Once a day Start: 08-02-2022 End: 07-04-2023 levothyroxine 100 mcg [...] or meds for 1/2hr after. ANAI AVILA BRAND take 1 tablet by corrina th in the morning, then take 0.5 tablet by mouth once daily Levothyroxine Sodium 100 MCG 1 tablet in the morning on an empty stomach and 0.5 tablet Saturday Orally Once a day Active magnesium oxide 400 mg oral tablet (3 sources) take 1 tablet by corrina th in the morning, then take 1 tablet by mouth at bedtime magnesium oxide (MAGOX) 400 mg tablet Take 1 tablet (400 mg total) by mouth in the morning and 1 tablet (400 mg total) before bedtime. 0 Active Multiple Vitamins-Minerals (THERAPEUTIC MULTIVITAMIN-MINERALS) tablet (1 source) take 1 tablet by corrina th once daily Multiple Vitamins-Minerals (THERAPEUTIC MULTIVITAMIN-MINERALS) tablet Take 1 tablet by mouth daily 0 Active multivit-min/ferrous fumarat e (MULTI VITAMIN ORAL) (2 sources) multivit-min/danuta vish fumarate (MULTI VITAMIN ORAL) Take by mouth daily. 0 Active NONFORMULARY (2 sources) take 2 tablets by mo uth once daily NONFORMULARY Take 2 tablets by mouth daily Vision formula 50 0 Active take 1 tablet by mouth twice bianca ly NONFORMULARY Take 1 tablet by mouth 2 times daily Phromax 0 Active sod sulf-pot chloride-mag sulf 1.479-0.188- 0.225 gram tablet (2 sources) Start: 08-15-2023 sod sulf-pot chloride-mag sulf 1.479-0.188- 0.225 gram tablet Indications: Diarrhea, unspecified type Please see instructional sheet given by physicians office. 24 tablet 0 08/15/2023 Active zinc gluconate 50 mg oral tablet (3 sources) take 1 tablet by mouth in the morning zinc gluconate 50 mg tablet Take 1 tablet (50 mg total) by mouth in the morning. 0 Active Completed/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 Medications Medication Drug Class(es) [...] route daily take 1 tablet by mouth in the mo rning ascorbic acid, vitamin C, (VITAMIN C) 1000 mg tablet Take 1 tablet (1,000 mg total) by mouth in the morning. 0 Active take 1 tablet by mouth once ananth [...] and dry with gauze for 14 days chromium picolinate 0.4 mg oral tablet (11 sources) take 2 tablets by mouth once daily chromium picolinate 400 mcg tablet take 2 tablets by oral route daily ubidecarenone 100 mg oral capsule (20 sources) [...] 2 tablets by oral route daily ICaps 3,[id number] lxcn-tp-nr-unit oral tablet extended release (20 sources) End: 01-20-2015 take 2 tablets by mouth once daily ICaps 3,966-1-587-75 vuee-ss-ia-unit oral tablet extended release 01/20/2015 take 2 [...] METHOD IF PUMP DOES NOT WORK. insulin glargine (LANTUS SOLOSTAR U-100 INSULIN) 100 unit/mL (3 mL) insulin pen Inject under the skin nightly. Inject 6 units prime pen with 2 units, use as a backup method if pump does not work 0 Active Iron (20 sources) End: 11-11-2015 take 1 capsule by mouth once daily iron 325 mg (65 mg iron) oral capsule, extended release 11/11/2015 take 1 capsule by oral route daily losartan potassium 50 mg oral tablet (20 [...] (20 sources) HMG-CoA Reductase Inhibitor Start: 06-16-20 14 End: 01-21-20 15 take 1 tablet by mouth every week Livalo 2 mg oral tablet 06/16/2014 01/20/2015 take one tablet one a week PreserVision AREDS-2 [phone] rl-howz-nn-mg oral capsule (20 sources) End: 05-22-20 19 take 1 capsule by mouth twice daily PreserVision AREDS-2 [phone] zn-flqb-ny-mg oral capsule 05/22/2019 take 1 capsule by oral route 2 times a day take 1 capsule by mouth twice da grace PreserVision AREDS-2 [phone] gk-mzvs-zj-mg oral capsule take 1 capsule by oral [...] Translations: [Malignant tumor of colon] Onset: 01-20-2015 09-05-2023 Chronic Cancer of colon (3 sources) History [...] hypertension; Translations: [Benign essential hypertension] Onset: 03-21-2013 10-25-2020 Chronic Heart valve disorders (1 source) Cardiac [...] unspecified] Onset: 08-15-2023 Episodic Other gastrointestinal disorders (2 sources) Diarrhea; Translations: [Diarrhea, unspecified] Onset: 08-15-2023 09-05-2023 Episodic Other nutritional; endocrine; and metabolic disorders [...] fatigue; Translations: [Other fatigue] Onset: 02-12-2019 Episodic Mood disorders (2 sources) Mood disorders Onset: 11-15-2022 11-15-2022 Mycoses (14 sources) Tinea unguium Onset: 09-26-2022 [...] Onset: 09-10-2022 Episodic Unclassified (1 source) ref_[id number] ness_name_46 Onset: 08-05-2015 Unclassified (1 source) ref_[id number]_ijdeNms ness_name_44 Onset: 08-05-2015 Unclassified (1 source) ref_[id number]_bumxQdb ness_name_36 Onset: 01-20-2015 Unclassified (1 source) ref_[id number]_tiisYxd ness_name_35 Onset: 01-20-2015 Unclassified (1 source) [id number] ness_name_35 Onset: 01-20-2015 Unclassified (1 source) [id number]_zmilGoa ness_name_36 Onset: 01-20-2015 Unclassified (1 source) [id number]_fifsKli ness_name_44 Onset: 08-05-2015 Unclassified (1 source) [id number]_jfmbYav ness_name_46 Onset: 08-05-2015 Unclassified (1 source) ref_[id number] [...] ness_name_46 Onset: 08-05-2015 Unclassified (1 source) ref_[id number]_dyvfRaz ness_name_35 Onset: 01-20-2015 Unclassified (1 source) [id number]_ibppExr ness_name_36 Onset: 01-20-2015 Unclassified (1 source) ref_[id number] ness_name_44 Onset: 08-05-2015 Unclassified (1 source) ref_[id number]_qjzvKhd ness_name_46 Onset: 08-05-2015 Unclassified (1 source) [id number]_pastIll ness_name_35 Onset: 01-20-2015 Unclassified (1 source) [id number]_pastIll ness_name_36 Onset: 01-20-2015 Unclassified (1 source) [id number]_pastIll ness_name_44 Onset: 08-05-2015 Unclassified (1 source) [id number]_pastIll ness_name_46 Onset: 08-05-2015 Unclassified (1 source) ref_[id number]_cojxPrb ness_name_35 Onset: 01-20-2015 Unclassified (1 source) ref_[id number]_ijdtMsm ness_name_36 Onset: 01-20-2015 Unclassified (1 source) ref_[id number] ness_name_44 Onset: 08-05-2015 Unclassified (1 source) ref_[id number]_rzfhCid ness_name_46 Onset: 08-05-2015 Unclassified (1 source) ref_[id number]_pastIll ness_name_35 Onset: 01-20-2015 Unclassified (1 source) ref_[id number]_pastIll ness_name_36 Onset: 01-20-2015 Unclassified (1 source) ref_[id number]_pastIll ness_name_44 Onset: 08-05-2015 Unclassified (1 source) ref_[id number]_pastIll ness_name_46 Onset: 08-05-2015 Unclassified (1 source) [id number]_duueSku ness_name_35 Onset: 01-20-2015 Unclassified (1 source) ref_[id number] ness_name_36 Onset: 01-20-2015 Unclassified (1 source) ref_[id number]_rrshDpe ness_name_44 Onset: 08-05-2015 Unclassified (1 source) ref_[id number]_icsaZwx ness_name_46 Onset: 08-05-2015 Unclassified (1 source) ref_[id number] ness_name_35 Onset: 01-20-2015 Unclassified (1 source) ref_[id number]_firjJit ness_name_36 Onset: 01-20-2015 Unclassified (1 source) ref_[id number]_pgetRcv ness_name_44 Onset: 08-05-2015 Unclassified (1 source) ref_[id number]_jfsdNuy ness_name_46 Onset: 08-05-2015 Unclassified (1 source) [id number] [...] ness_name_46 Onset: 08-05-2015 Unclassified (1 source) ref_[id number]_vloiLsx ness_name_35 Onset: 01-20-2015 Unclassified (1 source) ref_[id number]_xcbfIvy ness_name_36 Onset: 01-20-2015 Unclassified (1 source) ref_[id number]_yktqSsh ness_name_44 Onset: 08-05-2015 Unclassified (1 source) [id number]_bvgmQdb ness_name_46 Onset: 08-05-2015 Unclassified (1 source) ref_[id number] [...] Test Name Value Interpretation Reference Range Facility Colonoscopyon 09-04-2023 [facility] 09-04-2023 L Specimen: [id number] Received: 09/04/23 Status: SOUT Req Num: [id number] Spec Type: Surgical Subm Dr: Paulette Voss DO Tissues: A Colon Biopsy (RANDOM COLON BX) Procedures: HE/2, Gross/Micro L4 Age/ Patient Sex Location Account Attending Physician Mariana Viveros 72/F LABELL [id number] Paulette Voss DO SPEC NUM: [id number] RECD: 09/04/23 STATUS: DAKOTAH MURO NUM: [id number] KRYSTAL: 09/04/23 [facility] DR: Paulette Voss DO ENTERED: 09/04/23 [facility] DR: Marleny,Lab SPEC TYPE: Surgical DEPT: DANIEL GATES ORDERED: HE/2, Gross/Micro L4 ORDERED: HE/2, Gross/Micro L4 Pathological Diagnosis Colon, Biopsy: No Evidence Of Colitis. Clinical Information Normal colon Gross Description Received in formalin labeled with the patient's name, date of and random colon biopsies are 4 rivas soft tissue fragments, 0.4-0.6 cm in greatest dimensions. Entirely submitted in one cassette labeled A1. CPT Codes 00039 Specimen: [id number] Received: 09/04/23 Status: DAKOTAH Muro Num: [id number] Spec Type: Surgical Subm Dr: Paulette Voss DO Tissues: A Colon Biopsy (RANDOM COLON BX) Procedures: HE/2, Gross/Micro L4 Patient: Mariana Viveros [id number] (Continued) Signed (signatur e on file) Elias Diaz MD 09/08/232216 [facility] C DIFFICILE BY PCRon 024 C. difficile toxin genes WENDY+probe Ql (Stl) TOXIGENIC C DIFF Negative (qualifier value) 027 NAP1 Negative (qualifier value) Normal PRNEG [facility] Comment on above: Performed By: #### 8 2195-9 #### [facility] ([id number]) [address] [place] [address], [place] [address] [facility] ([id number]) [address], [address] [address] #### [id number] #### [facility] ([id number]) [address], [address] [address] GI PANELon 08-16-2023 Gastrointestinal pathogens DNA and [...] SAPOVIRUS Not detected (qualifier value) Normal NDET [facility] Comment on above: Performed By: #### 8 2195-9 #### [facility] ([id number]) [address] [facility], [place] [address] [facility] ([id number]) [address] [facility], [address] [place] [address] #### [id number] #### [facility] ([id number]) [address], [address] [place] [address] No Panel Informationon 01-29 Tobacco smoking status Non-Smoker Invalid Interpretation Code re3D POINT OF CARE GLUCOSEon 05-0 Glucose [Mass/Vol] 189 mg/dL Critically high 74-106 [facility] Comment on above: Performed By: #### P OCGLUC #### [facility] [address] [place] [address] Dr. Jenni Watson No Panel Informationon 10-31 Body mass index (BMI) [Percentile] Per age and sex 0.1 {percentile} Invalid Interpretation Code re3D [id number] Per age and sex 0.1 {percentile} Invalid Interpretation Code re3D No Panel Informationon 08-02 Body mass index (BMI) [Percentile] Per age and sex 0.1 {percentile} Invalid Interpretation Code re3D [id number] Per age and sex 0.1 {percentile} Invalid Interpretation Code re3D CALCIUM, IONIC (POC)on 07-10 POC Ionized Calcium 1.18 mmol/L 1.15 - 1 .33 mmol/L [facility] Creatinine W/GFR Point of Ca reon 07-10-2022 Creatinine [Mass/Vol] 0.55 mg/dL 0.51 - 1.19 mg/dL [facility] eGFR, POC mL/min/1.73m2 [facility] Comment on above: Effective Apr 16, [...] [Moles/Vol] 12 mmol/L 7 - 16 mmol/L [facility] Chloride [Moles/Vol] 104 mmol/L 98 - 10 7 mmol/L [facility] CO2 [Moles/Vol] 26 mmol/L 22 - 30 mmol/L [facility] Potassium [Moles/Vol] 4.2 mmol/L 3.5 - 4.5 mmol/L [facility] Sodium [Moles/Vol] 141 mmol/L 138 - 146 mmol/L [facility] Hemoglobin and hematocrit, b loodon 07-10-2022 Hematocrit (Bld) [Volume fraction] 39 % 36 - 46 % [facility] Hemoglobin (Bld) [Mass/Vol] 13.3 g/dL 12.0 - 16.0 g/dL [facility] No Panel Informationon 07-10 [facility] POCT Glucoseon 07-10-2022 Glucose [Mass/Vol] 141 mg/dL High 74 - 100 mg/dL [facility] Interpretation and review of laboratory results Abnormal [facility] POCT urea (BUN)on 07-10-2022 Urea nitrogen [Mass/Vol] 16 mg/dL 8 - 26 mg/dL [facility] Laboratory - Chemistry and C hemistry - challengeon 05-02-2022 Albumin (U) [Mass/Vol] 18.9 Invalid Interpretation Code <17.0 re3D Albumin/Creatinine DL <= 20 mg/L (U) [Mass ratio] 11.5 mg/g Invalid Interpretation Code 0.0-30.0 re3D Anion gap [Moles/Vol] 13 mmol/L Invalid Interpretation Code 10-20 re3D Calcium [Mass/Vol] 9.30 mg/dL Invalid Interpretation Code 8.5-10.8 re3D Chloride [Moles/Vol] 103.0 mmol/L Invalid Interpretation Code 100-112 re3D Cholesterol [Mass/Vol] 250.0 mg/dL Invalid Interpretation Code 0-200 re3D Cholesterol in HDL [Mass/Vol] 94.0 mg/dL Invalid Interpretation Code 50-100 re3D Cholesterol in LDL [Mass/Vol] 144.0 mg/dL Invalid Interpretation Code 0-130 re3D Cholesterol in VLDL [Mass/Vol] 12.0 mg/dL Invalid Interpretation Code 0-39 [facility] Cholesterol.total/Cho lesterol in HDL [Mass ratio] 3 {ratio} Invalid Interpretation Code re3D CO2 [Moles/Vol] 28.0 mmol/L Invalid Interpretation Code 23-30 re3D Creatinine (U) [Mass/Vol] 163.90 mg/dL Invalid Interpretation Code Not Estab. mg/dL re3D Creatinine [Mass/Vol] 0.80 mg/dL Invalid Interpretation Code 0.5-1.5 re3D GFR/1.73 sq M.predicted among non-blacks MDRD (S/P/Bld) [Vol rate/Area] 70 mL/min/{1.73_m2} Invalid Interpretation Code re3D Glucose [Mass/Vol] 142.0 mg/dL Invalid Interpretation Code 80-117 [facility] Potassium [Moles/Vol] 4.40 mmol/L Invalid Interpretation Code 3.5-5.3 [facility] Sodium [Moles/Vol] 140.0 mmol/L Invalid Interpretation Code 135-148 [facility] Triglyceride [Mass/Vol] 61.0 mg/dL Invalid Interpretation Code 30-150 [facility] Urea nitrogen [Mass/Vol] 21.0 mg/dL Invalid Interpretation Code 7-25 [facility] Urea nitrogen/Creatinine [Mass ratio] 26 mg/mg Invalid Interpretation Code 6-20 [facility] Laboratory - Hematology and Cell countson 05-02-2022 HbA1c (Bld) [Mass fraction] 5.70 % Invalid Interpretation Code 4.3-6.3 [facility] Laboratory - Urinalysison Glucose Test strip (U) [Mass/Vol] Negative Invalid Interpretation Code negative [facility] Protein (U) [Mass/Vol] trace Invalid Interpretation Code negative [facility] No Panel Informationon 05-02 117.0 mg/dL Invalid Interpretation Code re3D 143 Invalid Interpretation Code 70-117 [facility] - Chemistry and C hemistry - challengeon 01-30-2022 Anion gap [Moles/Vol] 10 mmol/L Invalid Interpretation Code 10-20 re3D Calcium [Mass/Vol] 9.20 mg/dL Invalid Interpretation Code 8.5-10.8 re3D Chloride [Moles/Vol] 105.0 mmol/L Invalid Interpretation Code 100-112 [facility] Cholesterol [Mass/Vol] 266.0 mg/dL Invalid Interpretation Code 0-200 [facility] Cholesterol in HDL [Mass/Vol] 86.0 mg/dL Invalid Interpretation Code 50-100 [facility] Cholesterol in LDL [Mass/Vol] 157.0 mg/dL Invalid Interpretation Code 0-130 [facility]D Cholesterol in VLDL [Mass/Vol] 23.0 mg/dL Invalid Interpretation Code 0-39 [facility] Cholesterol.total/Cho lesterol in HDL [Mass ratio] 3 {ratio} Invalid Interpretation Code [facility] CO2 [Moles/Vol] 29.0 mmol/L Invalid Interpretation Code 23-30 re[facility]D Creatinine [Mass/Vol] 0.80 mg/dL Invalid Interpretation Code 0.5-1.5 [facility] GFR/1.73 sq M.predicted among non-blacks MDRD (S/P/Bld) [Vol rate/Area] 70 mL/min/{1.73_m2} Invalid Interpretation Code [facility] Glucose [Mass/Vol] 154.0 mg/dL Invalid Interpretation Code 80-117 re[facility]D Potassium [Moles/Vol] 4.40 mmol/L Invalid Interpretation Code 3.5-5.3 re3D Sodium [Moles/Vol] 140.0 mmol/L Invalid Interpretation Code 135-148 re[facility]D Triglyceride [Mass/Vol] 113.0 mg/dL Invalid Interpretation Code 30-150 [facility] Urea nitrogen [Mass/Vol] 18.0 mg/dL Invalid Interpretation Code 7-25 [facility] Urea nitrogen/Creatinine [Mass ratio] 23 mg/mg Invalid Interpretation Code 6-20 [facility] Laboratory - Hematology and Cell countson 01-30-2022 HbA1c (Bld) [Mass fraction] 5.40 % Invalid Interpretation Code 4.3-6.3 re3D No Panel Informationon 01-30 108.0 mg/dL Invalid Interpretation Code re3D 174 Invalid Interpretation Code 70-117 [facility] Laboratory - Chemistry and C hemistry - challengeon 10-31-2021 Albumin (U) [Mass/Vol] 22.0 Invalid Interpretation Code <17.0 re3D Albumin/Creatinine DL <= 20 mg/L (U) [Mass ratio] 9.8 mg/g Invalid Interpretation Code 0.0-30.0 re3D Anion gap [Moles/Vol] 14 mmol/L Invalid Interpretation Code 10-20 re3D Bilirubin Ql (U) Negative Invalid Interpretation Code Negative re3D Calcium [Mass/Vol] 9.30 mg/dL Invalid Interpretation Code 8.5-10.8 re3D Chloride [Moles/Vol] 103.0 mmol/L Invalid Interpretation Code 100-112 [facility]D CO2 [Moles/Vol] 28.0 mmol/L Invalid Interpretation Code 23-30 [facility] Creatinine (U) [Mass/Vol] 224.0 mg/dL Invalid Interpretation Code Not Estab. mg/dL re3D Creatinine [Mass/Vol] 0.80 mg/dL Invalid Interpretation Code 0.5-1.5 [facility] GFR/1.73 sq M.predicted among non-blacks MDRD (S/P/Bld) [Vol rate/Area] 70 mL/min/{1.73_m2} Invalid Interpretation Code [facility] Glucose [Mass/Vol] 159.0 mg/dL Invalid Interpretation Code 80-117 [facility]D Ketones Ql (U) 1+ Invalid Interpretation Code Negative [facility] pH (U) 6 [pH] Invalid Interpretation Code 5.0-9.0 re3D Potassium [Moles/Vol] 4.40 mmol/L Invalid Interpretation Code 3.5-5.3 re3D Sodium [Moles/Vol] 141.0 mmol/L Invalid Interpretation Code 135-148 [facility] Specific gravity (U) [Rel density] 1.020 Invalid Interpretation Code 1.003-1.030 re3D T4 [Mass/Vol] 7.37 ug/dL Invalid Interpretation Code 5.00-12.00 re3D TSH Qn 0.92 m[IU]/L Invalid Interpretation Code 0.50-4.00 re3D Urea nitrogen [Mass/Vol] 19.0 mg/dL Invalid Interpretation Code 7-25 re[facility]D Urea nitrogen/Creatinine [Mass ratio] 24 mg/mg Invalid Interpretation Code 6-20 [facility]D Urobilinogen (U) [Mass/Vol] normal Invalid Interpretation Code normal [facility] Laboratory - Hematology and Cell countson 10-31-2021 HbA1c (Bld) [Mass fraction] 5.90 % Invalid Interpretation Code 4.3-6.3 re[facility]D Hemoglobin Ql (U) Trace Invalid Interpretation Code Negative [facility] - Specimen inform ationon 10-31-2021 Clarity (U) Sl. Cloudy Invalid Interpretation Code Clear [facility] Color (U) rafael Invalid Interpretation Code yellow [facility]D Laboratory - Urinalysison Glucose Test strip (U) [Mass/Vol] Negative Invalid Interpretation Code Negative re3D Leukocyte esterase Test strip Ql (U) Trace Invalid Interpretation Code Negative re3[facility] Nitrite Ql (U) Negative Invalid Interpretation Code Negative [facility] Protein Ql (U) 2+ Invalid Interpretation Code Negative re[facility] No Panel Informationon 10-31 123.0 mg/dL Invalid Interpretation Code re3D 175 Invalid Interpretation Code 70-117 [facility] Laboratory - Chemistry and C hemistry - challengeon 08-02-2021 Albumin (U) [Mass/Vol] < 12.00 Invalid Interpretation Code < 17.0 ug/mL [facility] Anion gap [Moles/Vol] 11 mmol/L Invalid Interpretation Code 10-20 [facility] Bilirubin Ql (U) Negative Invalid Interpretation Code Negative [facility] Calcium [Mass/Vol] 9.20 mg/dL Invalid Interpretation Code 8.5-10.8 [facility] Chloride [Moles/Vol] 104.0 mmol/L Invalid Interpretation Code 100-112 [facility] Cholesterol [Mass/Vol] 274.0 mg/dL Invalid Interpretation Code 0-200 [facility] Cholesterol in HDL [Mass/Vol] 88.0 mg/dL Invalid Interpretation Code 50-100 [facility] Cholesterol in LDL [Mass/Vol] 165.0 mg/dL Invalid Interpretation Code 0-130 [facility] Cholesterol in VLDL [Mass/Vol] 21.0 mg/dL Invalid Interpretation Code 0-39 [facility] Cholesterol.total/Cho lesterol in HDL [Mass ratio] 3 {ratio} Invalid Interpretation Code [facility] CO2 [Moles/Vol] 30.0 mmol/L Invalid Interpretation Code 23-30 [facility] Creatinine (U) [Mass/Vol] 159.70 mg/dL Invalid Interpretation Code Not Estab. mg/dL [facility] Creatinine [Mass/Vol] 0.80 mg/dL Invalid Interpretation Code 0.5-1.5 [facility] GFR/1.73 sq M.predicted among non-blacks MDRD (S/P/Bld) [Vol rate/Area] 70 mL/min/{1.73_m2} Invalid Interpretation Code [facility] Glucose [Mass/Vol] 144.0 mg/dL Invalid Interpretation Code 80-117 [facility] Ketones Ql (U) 2+ Invalid Interpretation Code Negative re[facility] pH (U) 7 [pH] Invalid Interpretation Code 5.0-9.0 [facility] Potassium [Moles/Vol] 4.80 mmol/L Invalid Interpretation Code 3.5-5.3 [facility] Sodium [Moles/Vol] 140.0 mmol/L Invalid Interpretation Code 135-148 [facility] Specific gravity (U) [Rel density] 1.010 Invalid Interpretation Code 1.003-1.030 [facility] T4 [Mass/Vol] 8.12 ug/dL Invalid Interpretation Code 5.00-12.00 [facility] Triglyceride [Mass/Vol] 107.0 mg/dL Invalid Interpretation Code 30-150 [facility] TSH Qn 0.37 m[IU]/L Invalid Interpretation Code 0.50-4.00 [facility] Urea nitrogen [Mass/Vol] 19.0 mg/dL Invalid Interpretation Code 7-25 [facility] Urea nitrogen/Creatinine [Mass ratio] 24 mg/mg Invalid Interpretation Code 6-20 [facility] Urobilinogen (U) [Mass/Vol] normal Invalid Interpretation Code normal [facility] Laboratory - Hematology and Cell countson 08-02-2021 HbA1c (Bld) [Mass fraction] 6.10 % Invalid Interpretation Code 4.3-6.3 [facility] Hemoglobin Ql (U) Negative Invalid Interpretation Code Negative [facility] Laboratory - Specimen inform ationon 08-02-2021 Clarity (U) Sl. Cloudy Invalid Interpretation Code Clear re3D Color (U) rafael Invalid Interpretation Code yellow [facility] Laboratory - Urinalysison Glucose Test strip (U) [Mass/Vol] Negative Invalid Interpretation Code Negative [facility] Leukocyte esterase Test strip Ql (U) Negative Invalid Interpretation Code Negative [facility] Nitrite Ql (U) Negative Invalid Interpretation Code Negative [facility] Protein Ql (U) 1+ Invalid Interpretation Code Negative [facility] No Panel Informationon 08-02 128.0 mg/dL Invalid Interpretation Code re[facility]D 146 Invalid Interpretation Code 70-117 [facility] Laboratory - Chemistry and C hemistry - challengeon 05-02-2021 Albumin (U) [Mass/Vol] 86.2 Invalid Interpretation Code <17.0 [facility] Albumin/Creatinine DL <= 20 mg/L (U) [Mass ratio] 45.3 mg/g Invalid Interpretation Code 0.0-30.0 [facility] Anion gap [Moles/Vol] 14 mmol/L Invalid Interpretation Code 10-20 [facility] Calcium [Mass/Vol] 9.20 mg/dL Invalid Interpretation Code 8.5-10.8 [facility] Chloride [Moles/Vol] 106.0 mmol/L Invalid Interpretation Code 100-112 [facility] CO2 [Moles/Vol] 27.0 mmol/L Invalid Interpretation Code 23-30 [facility] Creatinine (U) [Mass/Vol] 190.10 mg/dL Invalid Interpretation Code Not Estab. mg/dL [facility] Creatinine [Mass/Vol] 0.70 mg/dL Invalid Interpretation Code 0.5-1.5 [facility] GFR/1.73 sq M.predicted among non-blacks MDRD (S/P/Bld) [Vol rate/Area] 82 mL/min/{1.73_m2} Invalid Interpretation Code [facility] Glucose [Mass/Vol] 204.0 mg/dL Invalid Interpretation Code 80-117 [facility] Potassium [Moles/Vol] 4.80 mmol/L Invalid Interpretation Code 3.5-5.3 [facility] Sodium [Moles/Vol] 142.0 mmol/L Invalid Interpretation Code 135-148 [facility] T4 [Mass/Vol] 8.63 ug/dL Invalid Interpretation Code 5.00-12.00 [facility] TSH Qn 0.12 m[IU]/L Invalid Interpretation Code 0.50-4.00 [facility] Urea nitrogen [Mass/Vol] 25.0 mg/dL Invalid Interpretation Code 7-25 [facility] Urea nitrogen/Creatinine [Mass ratio] 36 mg/mg Invalid Interpretation Code 6-20 [facility] Laboratory - Hematology and Cell countson 05-02-2021 HbA1c (Bld) [Mass fraction] 6.10 % Invalid Interpretation Code 4.3-6.3 [facility] No Panel Informationon 05-02 128.0 mg/dL Invalid Interpretation Code re3D 194 Invalid Interpretation Code 70-117 [facility] Laboratory - Chemistry and C hemistry - challengeon 02-02-2021 Albumin (U) [Mass/Vol] < 12.00 Invalid Interpretation Code < 17.0 ug/mL [facility] Anion gap [Moles/Vol] 10 mmol/L Invalid Interpretation Code 10-20 [facility] Calcium [Mass/Vol] 9.10 mg/dL Invalid Interpretation Code 8.5-10.8 [facility] Chloride [Moles/Vol] 105.0 mmol/L Invalid Interpretation Code 100-112 [facility] Cholesterol [Mass/Vol] 266.0 mg/dL Invalid Interpretation Code 0-200 [facility] Cholesterol in HDL [Mass/Vol] 89.0 mg/dL Invalid Interpretation Code 50-100 [facility] Cholesterol in LDL [Mass/Vol] 163.0 mg/dL Invalid Interpretation Code 0-130 [facility] Cholesterol in VLDL [Mass/Vol] 14.0 mg/dL Invalid Interpretation Code 0-39 [facility] Cholesterol.total/Cho lesterol in HDL [Mass ratio] 3 {ratio} Invalid Interpretation Code [facility] CO2 [Moles/Vol] 32.0 mmol/L Invalid Interpretation Code 23-30 [facility] Creatinine (U) [Mass/Vol] 116.30 mg/dL Invalid Interpretation Code Not Estab. mg/dL [facility] Creatinine [Mass/Vol] 0.70 mg/dL Invalid Interpretation Code 0.5-1.5 [facility] GFR/1.73 sq M.predicted among non-blacks MDRD (S/P/Bld) [Vol rate/Area] 82 mL/min/{1.73_m2} Invalid Interpretation Code [facility] Glucose [Mass/Vol] 162.0 mg/dL Invalid Interpretation Code 80-117 [facility] Potassium [Moles/Vol] 4.80 mmol/L Invalid Interpretation Code 3.5-5.3 [facility] Sodium [Moles/Vol] 142.0 mmol/L Invalid Interpretation Code 135-148 [facility] Triglyceride [Mass/Vol] 70.0 mg/dL Invalid Interpretation Code 30-150 [facility] Urea nitrogen [Mass/Vol] 24.0 mg/dL Invalid Interpretation Code 7-25 [facility] Urea nitrogen/Creatinine [Mass ratio] 34 mg/mg Invalid Interpretation Code 6-20 [facility] Laboratory - Hematology and Cell countson 02-02-2021 HbA1c (Bld) [Mass fraction] 6.50 % Invalid Interpretation Code 4.3-6.3 [facility] Laboratory - Urinalysison Glucose Test strip (U) [Mass/Vol] Negative Invalid Interpretation Code negative [facility] Protein (U) [Mass/Vol] trace Invalid Interpretation Code negative [facility] No Panel Informationon 02-02 140.0 mg/dL Invalid Interpretation Code [facility] 158 Invalid Interpretation Code 70-117 [facility] Laboratory - Chemistry and C hemistry - challengeon 10-20-2020 T4 [Mass/Vol] 8.07 ug/dL Invalid Interpretation Code 5.00-12.00 [facility] TSH Qn 0.24 m[IU]/L Invalid Interpretation Code 0.50-4.00 [facility] Laboratory - Hematology and Cell countson 10-20-2020 Erythrocyte distribution width (RBC) [Ratio] 13.60 % Invalid Interpretation Code 11.5-15.5 [facility] HbA1c (Bld) [Mass fraction] 6.40 % Invalid Interpretation Code 4.3-6.3 [facility] Hematocrit (Bld) [Volume fraction] 37.90 % Invalid Interpretation Code 35.7-47.1 [facility] Hemoglobin (Bld) [Mass/Vol] 12.30 g/dL Invalid Interpretation Code 11.9-15.7 [facility] MCH (RBC) [Entitic mass] 29.40 pg Invalid Interpretation Code 23.2-33.3 [facility] MCHC (RBC) [Mass/Vol] 32.50 g/dL Invalid Interpretation Code 32.0-36.0 [facility] MCV (RBC) [Entitic vol] 90.50 fL Invalid Interpretation Code 83.4-101.4 [facility] Platelet mean volume (Bld) [Entitic vol] 10.80 fL Invalid Interpretation Code 8.3-11.5 [facility] Platelets (Bld) [#/Vol] 213.0 10*3/uL Invalid Interpretation Code 150-400 [facility] RBC (Bld) [#/Vol] 4.190 10*6/uL Invalid Interpretation Code 3.72-5.24 [facility] WBC (Bld) [#/Vol] 4.90 10*3/uL Invalid Interpretation Code 3.9-10.3 [facility] Laboratory - Urinalysison Glucose Test strip (U) [Mass/Vol] Negative Invalid Interpretation Code negative re3D Protein (U) [Mass/Vol] Negative Invalid Interpretation Code negative re3D No Panel Informationon 10-20 137.0 mg/dL Invalid Interpretation Code re3D 146.0 mg/dL Invalid Interpretation Code <140 re3D 176 Invalid Interpretation Code 70-117 [facility] CNOVSPon 10-06-2020 CNOVSP Visit (SP) Office ([place]) ---- MARIANA VIVEROS ([id number]) 1950 F Date Time Provider Department 10/06/20 1:00 PM FARRAH NATARAJAN) HEMSANJEEV During your visit today, we recorded the following information about you: Temperature Pulse Respiration Blood pressure 97 degrees 84/minute 16/minute 180/79 Weight Height 69.7 kg 1.524 m Farrah Natarajan MD 10/06/2020 1:33 PM Signed CHIEF COMPLAINT: right colon cancer HISTORY OF PRESENT ILLNESS: Mariana Viveros is a 68 year old woman who [...] hemangioma : Discussed with GI oncology on [facility] and surgical oncology with plan to [...] with continue (more content not included)... Normal [facility] MARIANA VIVEROS ([id number]) 1950 F Date Time Provider Department 10/04/20 TESHA ACEVES During your visit today, we recorded the following information about you: TESHA ACEVES PA-C 10/04/2020 8:52 AM Signed Please call with normal CEA level and stable CT scans. Tesha Smith, RN, RN 10/04/2020 12:42 PM Signed Pt viewed results on MyChart. Kareem Smith RN Allergies As of Date: 10/04/2020 Noted Allergy Reaction DESONIDE 05/25/2019 16 - Unknown LATEX 05/25/2019 16 - Unknown [id number] REDUCTASE INHIBIT*05/25/2019 16 - Unknown ADHESIVE TAPE [...] cancer (HCC) [C18.9] 01/31/2015 Encounter Status:Closed by NANCY MARLOW, KAREEM on 10/04/20 Normal [facility] CEAon 09-30-2020 CEA 2.8 ng/mL Normal 0.0-2.9 [facility] Comment on above: Result Comment: Test analyzed by the [employer] DxI method. Performed By: #### C EA #### [facility] [address] [place], [place] [address] CT ABD/PEL W IVCONon 021 CT ABD/PEL W IVCON * * *Final Report* * * DATE OF EXAM: Sep 30 2020 11:35AM [facility] 0530 - CT ABD/PEL W [...] performed concurrently and will be dictated separately. Retirement Benefits Specialist (topogram) images: No additional findings. IMPRESSION: 1. [...] any questions regarding this interpretation, please call [phone]. If you are unable to reach us at the number above, please feel free to contact [facility] at [phone]. [id number] ACN Normal [facility] CT CHEST W IVCONon 1 CT CHEST W IVCON * * *Final Report* * * DATE OF EXAM: Sep 30 2020 11:35AM [facility] 0539 - CT CHEST W [...] performed concurrently and will be dictated separately. Retirement Benefits Specialist (topogram) images: No additional findings. IMPRESSION: Stable [...] any questions regarding this interpretation, please call [phone]. If you are unable to reach us at the number above, please feel free to contact [facility] at [phone]. [id number] ACN Normal [facility] Comp Metabolic Panelon 09-30 Albumin [Mass/Vol] 4.2 g/dL Normal 3.9-4.9 [facility] ALP [Catalytic activity/Vol] 128 U/L High 34-123 [facility] ALT [Catalytic activity/Vol] 25 U/L Normal 7-38 [facility] Anion gap [Moles/Vol] 5 mmol/L Low 9-18 [facility] AST [Catalytic activity/Vol] 27 U/L Normal 13-35 [facility] Bilirubin [Mass/Vol] 0.6 mg/dL Normal 0.2-1.3 [facility] Calcium [Mass/Vol] 9.5 mg/dL Normal 8.5-10.2 [facility] Chloride [Moles/Vol] 105 mmol/L Normal 97-105 [facility] CO2 [Moles/Vol] 32 mmol/L High 22-30 [facility] Creatinine [Mass/Vol] 0.67 mg/dL Normal 0.58-0.96 [facility] eGFR- Amer. >60 Normal [facility] eGFR-All Other Races >60 Normal [facility] Comment on above: Result Comment: [...] GFR. Glucose [Mass/Vol] 190 mg/dL High 74-99 [facility] Comment on above: Result Comment: The [place] Diabetes Association (ADA) provides guidance for cutoff [...] Standards of Medical Care in Diabetes 2016, [place] [employer]. Diabetes Care. 2016.39(Suppl 1). Potassium [Moles/Vol] 4.8 mmol/L Normal 3.7-5.1 [facility] Protein [Mass/Vol] 6.6 g/dL Normal 6.3-8.0 [facility] Sodium [Moles/Vol] 142 mmol/L Normal 136-144 [facility] Urea nitrogen [Mass/Vol] 21 mg/dL Normal 7-21 [facility] Remote CBCDIF (for [facility] use o nly)on 09-30-2020 Abs Baso 0.04 k/uL Normal <0.11 [facility] Abs [place] 0.44 k/uL Normal <0.87 [facility] Abs Neut 4.94 k/uL Normal 1.45-7.50 [facility] Absolute nRBC <0.01 Normal <0.01 [facility] Basophils/100 WBC (Bld) 0.6 % Normal [facility] DTYPE Auto Diff Normal [facility] Eosinophils (Bld) [#/Vol] 0.06 10*3/uL Normal <0.46 [facility] Eosinophils/100 WBC (Bld) 0.9 % Normal [facility] Erythrocyte distribution width (RBC) [Ratio] 13.5 % Normal 11.5-15.0 [facility] Hematocrit (Bld) [Volume fraction] 39.0 % Normal 36.0-46.0 [facility] Hemoglobin (Bld) [Mass/Vol] 12.9 g/dL Normal 11.5-15.5 [facility] Lymphocytes (Bld) [#/Vol] 1.46 10*3/uL Normal 1.00-4.00 [facility] Lymphocytes/100 WBC (Bld) 21.0 % Normal [facility] MCH 29.6 pG Normal 26.0-34.0 [facility] MCHC (RBC) [Mass/Vol] 33.1 g/dL Normal 30.5-36.0 [facility] MCV (RBC) [Entitic vol] 89.4 fL Normal 80.0-100.0 [facility] Monocytes/100 WBC (Bld) 6.3 % Normal [facility] Neutrophils/100 WBC (Bld) 71.2 % Normal [facility] NRBCs 0.0 /100 WBC Normal 0 [facility] Platelet mean volume (Bld) [Entitic vol] 10.4 fL Normal 9.0-12.7 [facility] Platelets (Bld) [#/Vol] 184 10*3/uL Normal 150-400 [facility] RBC (Bld) [#/Vol] 4.36 10*6/uL Normal 3.90-5.20 [facility] WBC (Bld) [#/Vol] 6.96 10*3/uL Normal 3.70-11.00 [facility] 07-21-2020 Cholesterol [Mass/Vol] 230.0 mg/dL Invalid Interpretation Code 0-200 [facility] Cholesterol in HDL [Mass/Vol] 75.0 mg/dL Invalid Interpretation Code 50-100 [facility] Cholesterol in LDL [Mass/Vol] 139.0 mg/dL Invalid Interpretation Code 0-130 [facility] Triglyceride [Mass/Vol] 82.0 mg/dL Invalid Interpretation Code 30-150 [facility] CoV2 IgG Ab,Son 07-21-2020 Date of onset [id number] Normal [facility] Comment on above: Performed By: #### C [id number] #### [place] [address] Employed in healthcare? Unknown Normal [facility] Comment on above: Performed By: #### C [id number] #### [facility] [address] [place] [address] Group care resident? Unknown Normal [facility] Comment on above: Performed By: #### C [id number] #### [facility] [address] [place] [address] Hospitalized due to COVID-19? Unknown Normal [facility] Comment on above: Performed By: #### C [id number] #### [facility] [address] [place] [address], [place] [address] In ICU? Unknown Normal [facility] Comment on above: Performed By: #### C [id number] #### [address] [place] [address] Is this the first test for COVID? Unknown Normal [facility] Comment on above: Performed By: #### C [id number] #### [address] [place] [address] status? Unknown Normal [facility] Comment on above: Performed By: #### C [id number] #### [address] [place] [address] SARS-CoV-2 IgG Ab Reactive Abnormal Non-Reactive [facility] Comment on above: Result Comment: SARS -CoV-2 IgG antibodies detected. Results suggest recent or prior infection with SARS-CoV-2. Reactive results may also be due to past or present infection with [id number] coronavirus strains, such as coronavirus HKU1, NL63, [...] the ACCESS SARS-CoV-2 IgG Antibody assay by [employer], which has received Emergency Use Authorization (EUA) by the U.S. Food and Drug Administration. Fact sheets for this Emergency Use Authorization (EUA) assay can be found at the following locations: For Healthcare Providers: https://Matchpin/download/wsr-854953 For Patients: https://Matchpin/download/wsr-941976 Performed By: #### C [id number] #### [facility] [address] [place] [address] Symptomatic as defined by CDC? Unknown Normal [facility] Comment on above: Performed By: #### C [id number] #### [address] [address] Laboratory - Chemistry and C hemistry - challengeon 07-21-2020 Cholesterol.total/Cho lesterol in HDL [Mass ratio] 3 {ratio} Invalid Interpretation Code re3D Laboratory - Urinalysison Glucose Test strip (U) [Mass/Vol] Negative Invalid Interpretation Code negative re3D Protein (U) [Mass/Vol] Negative Invalid Interpretation Code negative re3D Metabolic Panelon 07-21-2020 Anion gap [Moles/Vol] 11 mmol/L Invalid Interpretation Code 10-20 [facility] Calcium [Mass/Vol] 9.10 mg/dL Invalid Interpretation Code 8.5-10.8 [facility] Chloride [Moles/Vol] 104.0 mmol/L Invalid Interpretation Code 100-112 [facility] CO2 [Moles/Vol] 29.0 mmol/L Invalid Interpretation Code 23-30 [facility] Creatinine [Mass/Vol] 0.80 mg/dL Invalid Interpretation Code 0.5-1.5 [facility] GFR/1.73 sq M predicted among non-blacks MDRD (S/P/Bld) [Vol rate/Area] 71 mL/min/{1.73_m2} Invalid Interpretation Code [facility] Glucose [Mass/Vol] 188 mg/dL 70-117 [facility] 3D FUTURE VISION II Glucose [Mass/Vol] 189.0 mg/dL Invalid Interpretation Code 80-[address] [facility] 3D FUTURE VISION II HbA1c (Bld) [Mass fraction] 6.50 % Invalid Interpretation Code 4.3-6.3 [place] [facility] [place] Potassium [Moles/Vol] 4.70 mmol/L Invalid Interpretation Code 3.5-5.3 [facility] [place] Sodium [Moles/Vol] 139.0 mmol/L Invalid Interpretation Code 135-148 [facility] [place] Urea nitrogen [Mass/Vol] 15.0 mg/dL Invalid Interpretation Code 7-25 [facility] [place] Urea nitrogen/Creatinine [Mass ratio] 19 mg/mg Invalid Interpretation Code 6-20 [place] No Panel Informationon 07-21 188 Invalid Interpretation Code 70-117 [facility] [place] Otheron 07-21-2020 Cholesterol in VLDL [Mass/Vol] 16.0 mg/dL Invalid Interpretation Code 0-39 [facility] [place] [facility] Cholesterol.total/Cho lesterol in HDL [Mass ratio] 3 (calc) [facility] Glucose Test strip (U) [Mass/Vol] Negative negative [place] 140.0 mg/dL Invalid Interpretation Code [facility] Thyroidon 07-21-2020 T4 [Mass/Vol] 9.72 ug/dL Invalid Interpretation Code 5.00-12.00 [facility] TSH Qn 0.10 m[IU]/L Invalid Interpretation Code 0.50-4.00 [facility] Urinalysison 07-21-2020 Protein (U) [Mass/Vol] Negative negative [facility]acon 04-14-2020 Cholesterol [Mass/Vol] 245.0 mg/dL Invalid Interpretation Code 0-200 [facility] Cholesterol in HDL [Mass/Vol] 82.0 mg/dL Invalid Interpretation Code 50-100 [facility] Cholesterol in LDL [Mass/Vol] 146.0 mg/dL Invalid Interpretation Code 0-130 [facility] Triglyceride [Mass/Vol] 83.0 mg/dL Invalid Interpretation Code 30-150 [facility] Laboratory - Chemistry and C hemistry - challengeon 04-14-2020 Cholesterol.total/Cho lesterol in HDL [Mass ratio] 3 {ratio} Invalid Interpretation Code [facility] Laboratory - Urinalysison Glucose Test strip (U) [Mass/Vol] Negative Invalid Interpretation Code negative [facility] Protein (U) [Mass/Vol] Negative Invalid Interpretation Code negative [facility] Metabolic Panelon 04-14-2020 Anion gap [Moles/Vol] 14 mmol/L Invalid Interpretation Code 10-20 [facility] Calcium [Mass/Vol] 9.20 mg/dL Invalid Interpretation Code 8.5-10.8 [facility] Chloride [Moles/Vol] 104.0 mmol/L Invalid Interpretation Code 100-112 [facility] CO2 [Moles/Vol] 29.0 mmol/L Invalid Interpretation Code 23-30 [facility] Creatinine [Mass/Vol] 0.60 mg/dL Invalid Interpretation Code 0.5-1.5 [facility] GFR/1.73 sq M predicted among non-blacks MDRD (S/P/Bld) [Vol rate/Area] 98 mL/min/{1.73_m2} Invalid Interpretation Code [facility] Glucose [Mass/Vol] 133.0 mg/dL Invalid Interpretation Code 80-117 [facility] HbA1c (Bld) [Mass fraction] 6.50 % Invalid Interpretation Code 4.3-6.3 [facility] Potassium [Moles/Vol] 4.70 mmol/L Invalid Interpretation Code 3.5-5.3 [facility] Sodium [Moles/Vol] 142.0 mmol/L Invalid Interpretation Code 135-148 [facility] Urea nitrogen [Mass/Vol] 17.0 mg/dL Invalid Interpretation Code 7-25 [facility] Urea nitrogen/Creatinine [Mass ratio] 28 mg/mg Invalid Interpretation Code 6-20 [facility] Otheron 04-14-2020 Cholesterol in VLDL [Mass/Vol] 17.0 mg/dL Invalid Interpretation Code 0-39 [facility] Cholesterol.total/Cho lesterol in HDL [Mass ratio] 3 (calc) [facility] Glucose Test strip (U) [Mass/Vol] Negative negative [facility] Urate [Mass/Vol] 2.80 mg/dL Invalid Interpretation Code 2.4-7.0 re[facility]D 140.0 mg/dL Invalid Interpretation Code re[facility]D Urinalysison 04-14-2020 Protein (U) [Mass/Vol] Negative negative [facility] Laboratory - Chemistry and C hemistry - challengeon 01-14-2020 Albumin (U) [Mass/Vol] < 12.00 Invalid Interpretation Code < 17.0 ug/mL re3[facility] Anion gap [Moles/Vol] 15 mmol/L Invalid Interpretation Code 10-20 [facility] Calcium [Mass/Vol] 8.90 mg/dL Invalid Interpretation Code 8.5-10.8 [facility] Chloride [Moles/Vol] 102.0 mmol/L Invalid Interpretation Code 100-112 [facility] CO2 [Moles/Vol] 29.0 mmol/L Invalid Interpretation Code 23-30 [facility] Creatinine (U) [Mass/Vol] 20.10 mg/dL Invalid Interpretation Code Not Estab. mg/dL re[facility] Creatinine [Mass/Vol] 0.60 mg/dL Invalid Interpretation Code 0.5-1.5 [facility] GFR/1.73 sq M.predicted among non-blacks MDRD (S/P/Bld) [Vol rate/Area] 98 mL/min/{1.73_m2} Invalid Interpretation Code [facility] Glucose [Mass/Vol] 148.0 mg/dL Invalid Interpretation Code 80-117 [facility] Potassium [Moles/Vol] 4.70 mmol/L Invalid Interpretation Code 3.5-5.3 [facility] Sodium [Moles/Vol] 141.0 mmol/L Invalid Interpretation Code 135-148 [employer] T4 [Mass/Vol] 9.01 ug/dL Invalid Interpretation Code 5.00-12.00 [facility] TSH Qn 0.24 m[IU]/L Invalid Interpretation Code 0.50-4.00 [facility] Urea nitrogen [Mass/Vol] 16.0 mg/dL Invalid Interpretation Code 7-25 [facility] Urea nitrogen/Creatinine [Mass ratio] 27 mg/mg Invalid Interpretation Code 6-20 [facility] - Hematology and Cell countson 01-14-2020 HbA1c (Bld) [Mass fraction] 6.80 % Invalid Interpretation Code 4.3-6.3 [facility] - Urinalysison Glucose Test strip (U) [Mass/Vol] Negative Invalid Interpretation Code negative [facility] Protein (U) [Mass/Vol] Negative Invalid Interpretation Code negative [facility] No Panel Informationon 01-13 148.0 mg/dL Invalid Interpretation Code [facility] 08-21-2019 Cholesterol [Mass/Vol] 283.0 mg/dL Invalid Interpretation Code 0-200 [facility] Cholesterol in HDL [Mass/Vol] 87.0 mg/dL Invalid Interpretation Code 50-100 [facility] Cholesterol in LDL [Mass/Vol] 177.0 mg/dL Invalid Interpretation Code 0-130 [facility] Triglyceride [Mass/Vol] 97.0 mg/dL Invalid Interpretation Code 30-150 [facility] Laboratory - Urinalysison Glucose Test strip (U) [Mass/Vol] Negative Invalid Interpretation Code negative [facility] Protein (U) [Mass/Vol] Negative Invalid Interpretation Code negative [facility] Metabolic Panelon 08-21-2019 Anion gap [Moles/Vol] 14 mmol/L Invalid Interpretation Code 10-20 [facility] Calcium [Mass/Vol] 9.30 mg/dL Invalid Interpretation Code 8.5-10.8 [facility] Chloride [Moles/Vol] 103.0 mmol/L Invalid Interpretation Code 100-112 [facility] CO2 [Moles/Vol] 28.0 mmol/L Invalid Interpretation Code 23-30 [facility] Creatinine [Mass/Vol] 0.70 mg/dL Invalid Interpretation Code 0.5-1.5 [facility] GFR/1.73 sq M predicted among non-blacks MDRD (S/P/Bld) [Vol rate/Area] 83 mL/min/{1.73_m2} Invalid Interpretation Code [facility] Glucose [Mass/Vol] 151.0 mg/dL Invalid Interpretation Code 80-117 [facility] HbA1c (Bld) [Mass fraction] 7.0 % Invalid Interpretation Code 4.3-6.3 [facility] Potassium [Moles/Vol] 4.50 mmol/L Invalid Interpretation Code 3.5-5.3 [facility] Sodium [Moles/Vol] 140.0 mmol/L Invalid Interpretation Code 135-148 [facility] Urea nitrogen [Mass/Vol] 18.0 mg/dL Invalid Interpretation Code 7-25 [facility] Urea nitrogen/Creatinine [Mass ratio] 26 mg/mg Invalid Interpretation Code 6-20 [facility] Otheron 08-21-2019 Cholesterol in VLDL [Mass/Vol] 19.0 mg/dL Invalid Interpretation Code 0-39 [facility] Cholesterol.total/Cho lesterol in HDL [Mass ratio] 3 {ratio} Invalid Interpretation Code [facility] Glucose Test strip (U) [Mass/Vol] Negative negative re3D 154 re3D 154.0 mg/dL Invalid Interpretation Code [facility] Urinalysison 08-21-2019 Protein (U) [Mass/Vol] Negative negative [facility] Laboratory - Urinalysison Glucose Test strip (U) [Mass/Vol] Negative Invalid Interpretation Code negative [facility] Protein (U) [Mass/Vol] Negative Invalid Interpretation Code negative [facility] Metabolic Panelon 05-22-2019 Anion gap [Moles/Vol] 14 mmol/L Invalid Interpretation Code 10-20 [facility] Calcium [Mass/Vol] 9.50 mg/dL Invalid Interpretation Code 8.5-10.8 [facility] Chloride [Moles/Vol] 103.0 mmol/L Invalid Interpretation Code 100-112 [facility] CO2 [Moles/Vol] 31.0 mmol/L Invalid Interpretation Code 23-30 [facility] Creatinine [Mass/Vol] 0.70 mg/dL Invalid Interpretation Code 0.5-1.5 [facility] GFR/1.73 sq M predicted among non-blacks MDRD (S/P/Bld) [Vol rate/Area] 83 mL/min/{1.73_m2} Invalid Interpretation Code [facility] Glucose [Mass/Vol] 77.0 mg/dL Invalid Interpretation Code 80-117 [facility] HbA1c (Bld) [Mass fraction] 6.60 % Invalid Interpretation Code 4.3-6.3 [facility] Potassium [Moles/Vol] 4.60 mmol/L Invalid Interpretation Code 3.5-5.3 [facility] Sodium [Moles/Vol] 143.0 mmol/L Invalid Interpretation Code 135-148 [facility] Urea nitrogen [Mass/Vol] 14.0 mg/dL Invalid Interpretation Code 7-25 [facility] Urea nitrogen/Creatinine [Mass ratio] 20 mg/mg Invalid Interpretation Code 6-20 [facility] Otheron 05-22-2019 Albumin (U) [Mass/Vol] 13.0 Invalid Interpretation Code <17.0 [facility] Glucose Test strip (U) [Mass/Vol] Negative negative [facility] See Above Invalid Interpretation Code 0-0 re3D 143 re3D 143.0 mg/dL Invalid Interpretation Code [facility] Urinalysison 05-22-2019 Albumin/Creatinine DL <= 20 mg/L (U) [Mass ratio] 6.6 mg/g Invalid Interpretation Code 0.0-30.0 [facility] Creatinine (U) [Mass/Vol] 197.80 mg/dL Invalid Interpretation Code Not Estab. mg/dL [facility] Protein (U) [Mass/Vol] Negative negative [facility] 02-12-2019 Cholesterol [Mass/Vol] 264.0 mg/dL Invalid Interpretation Code 0-200 [facility] Cholesterol in HDL [Mass/Vol] 69.0 mg/dL Invalid Interpretation Code 50-100 [facility] Cholesterol in LDL [Mass/Vol] 169.0 mg/dL Invalid Interpretation Code 0-130 [facility] Triglyceride [Mass/Vol] 132.0 mg/dL Invalid Interpretation Code 30-150 [facility] Hematologyon 02-12-2019 Hematocrit (Bld) [Volume fraction] 39.90 % Invalid Interpretation Code 35.7-47.1 [facility] Hemoglobin (Bld) [Mass/Vol] 13.30 g/dL Invalid Interpretation Code 11.9-15.7 [facility] MCH (RBC) [Entitic mass] 29.80 pg Invalid Interpretation Code 23.2-33.3 [facility] MCV (RBC) [Entitic vol] 89.50 fL Invalid Interpretation Code 83.4-101.4 [facility] Platelets (Bld) [#/Vol] 211.0 10*3/uL Invalid Interpretation Code 150-400 [facility] RBC (Bld) [#/Vol] 4.460 10*6/uL Invalid Interpretation Code 3.72-5.24 [facility] WBC (Bld) [#/Vol] 4.60 10*3/uL Invalid Interpretation Code 3.9-10.3 [facility] Laboratory - Urinalysison Glucose Test strip (U) [Mass/Vol] Negative Invalid Interpretation Code negative [facility] Metabolic Panelon 02-12-2019 Anion gap [Moles/Vol] 12 mmol/L Invalid Interpretation Code 10-20 [facility] Calcium [Mass/Vol] 9.0 mg/dL Invalid Interpretation Code 8.5-10.8 [facility] Chloride [Moles/Vol] 106.0 mmol/L Invalid Interpretation Code 100-112 [facility] CO2 [Moles/Vol] 30.0 mmol/L Invalid Interpretation Code 23-30 [facility] Creatinine [Mass/Vol] 0.70 mg/dL Invalid Interpretation Code 0.5-1.5 [facility] GFR/1.73 sq M predicted among non-blacks MDRD (S/P/Bld) [Vol rate/Area] 83 mL/min/{1.73_m2} Invalid Interpretation Code [facility] Glucose [Mass/Vol] 82.0 mg/dL Invalid Interpretation Code 80-117 [facility] HbA1c (Bld) [Mass fraction] 7.20 % Invalid Interpretation Code 4.3-6.3 [facility] Potassium [Moles/Vol] 4.20 mmol/L Invalid Interpretation Code 3.5-5.3 [facility] Sodium [Moles/Vol] 144.0 mmol/L Invalid Interpretation Code 135-148 [facility] Urea nitrogen [Mass/Vol] 17.0 mg/dL Invalid Interpretation Code 7-25 [facility] Urea nitrogen/Creatinine [Mass ratio] 24 mg/mg Invalid Interpretation Code 6-20 [facility] Otheron 02-12-2019 Albumin (U) [Mass/Vol] 12.7 Invalid Interpretation Code <17.0 [facility] Cholesterol in VLDL [Mass/Vol] 26.0 mg/dL Invalid Interpretation Code 0-39 [facility] Cholesterol.total/Cho lesterol in HDL [Mass ratio] 4 {ratio} Invalid Interpretation Code [facility] Erythrocyte distribution width (RBC) [Ratio] 13.0 % Invalid Interpretation Code 11.5-15.5 [facility] Glucose Test strip (U) [Mass/Vol] Negative negative [facility] MCHC (RBC) [Mass/Vol] 33.30 g/dL Invalid Interpretation Code 32.0-36.0 [facility] Platelet mean volume (Bld) [Entitic vol] 10.70 fL Invalid Interpretation Code 8.3-11.5 re3D 160 re3D See Above Invalid Interpretation Code 0-0 re3D 160.0 mg/dL Invalid Interpretation Code [facility] Thyroidon 02-12-2019 T4 [Mass/Vol] 7.63 ug/dL Invalid Interpretation Code 5.00-12.00 [facility] TSH Qn 0.44 m[IU]/L Invalid Interpretation Code 0.50-4.00 [facility] Urinalysison 02-12-2019 Albumin/Creatinine DL <= 20 mg/L (U) [Mass ratio] 5.1 mg/g Invalid Interpretation Code 0.0-30.0 [facility] Creatinine (U) [Mass/Vol] 250.20 mg/dL Invalid Interpretation Code Not Estab. mg/dL [facility] Protein (U) [Mass/Vol] trace Invalid Interpretation Code negative [facility] 11-28-2018 Cholesterol [Mass/Vol] 257.0 mg/dL Invalid Interpretation Code 0-200 [facility] Cholesterol in HDL [Mass/Vol] 66.0 mg/dL Invalid Interpretation Code 50-100 [facility] Cholesterol in LDL [Mass/Vol] 161.0 mg/dL Invalid Interpretation Code 0-130 [facility] Triglyceride [Mass/Vol] 152.0 mg/dL Invalid Interpretation Code 30-150 [facility] Metabolic Panelon 11-28-2018 Anion gap [Moles/Vol] 14 mmol/L Invalid Interpretation Code 10-20 [facility] Calcium [Mass/Vol] 9.20 mg/dL Invalid Interpretation Code 8.5-10.8 [facility] Chloride [Moles/Vol] 104.0 mmol/L Invalid Interpretation Code 100-112 [facility] CO2 [Moles/Vol] 30.0 mmol/L Invalid Interpretation Code 23-30 [facility] Creatinine [Mass/Vol] 0.70 mg/dL Invalid Interpretation Code 0.5-1.5 [facility] GFR/1.73 sq M predicted among non-blacks MDRD (S/P/Bld) [Vol rate/Area] 83 mL/min/{1.73_m2} Invalid Interpretation Code [facility] Glucose [Mass/Vol] 169.0 mg/dL Invalid Interpretation Code 80-117 [facility] HbA1c (Bld) [Mass fraction] 7.10 % Invalid Interpretation Code 4.3-6.3 [facility] Potassium [Moles/Vol] 4.50 mmol/L Invalid Interpretation Code 3.5-5.3 [facility] Sodium [Moles/Vol] 143.0 mmol/L Invalid Interpretation Code 135-148 [facility] Urea nitrogen [Mass/Vol] 21.0 mg/dL Invalid Interpretation Code 7-25 [facility] Urea nitrogen/Creatinine [Mass ratio] 30 mg/mg Invalid Interpretation Code 6-20 [facility] Otheron 11-28-2018 Cholesterol in VLDL [Mass/Vol] 30.0 mg/dL Invalid Interpretation Code 0-39 [facility] Cholesterol.total/Cho lesterol in HDL [Mass ratio] 4 {ratio} Invalid Interpretation Code re[facility] See Above Invalid Interpretation Code 0-0 re3D 157 re3D 157.0 mg/dL Invalid Interpretation Code [facility] Metabolic Panelon 08-29-2018 Anion gap [Moles/Vol] 14 mmol/L Invalid Interpretation Code 10-20 [facility] Calcium [Mass/Vol] 9.30 mg/dL Invalid Interpretation Code 8.5-10.8 [facility] Chloride [Moles/Vol] 102 mmol/L Invalid Interpretation Code 100-112 [facility] CO2 [Moles/Vol] 29 mmol/L Invalid Interpretation Code 23-30 [facility] Creatinine [Mass/Vol] 0.80 mg/dL Invalid Interpretation Code 0.5-1.5 [facility] GFR/1.73 sq M predicted among non-blacks MDRD (S/P/Bld) [Vol rate/Area] 71 mL/min/{1.73_m2} Invalid Interpretation Code [facility] Glucose [Mass/Vol] 185.0 mg/dL Invalid Interpretation Code 80-117 [facility] HbA1c (Bld) [Mass fraction] 6.70 % Invalid Interpretation Code 4.3-6.3 [facility] Potassium [Moles/Vol] 4.3 mmol/L Invalid Interpretation Code 3.5-5.3 [facility] Sodium [Moles/Vol] 141 mmol/L Invalid Interpretation Code 135-148 [facility] Urea nitrogen [Mass/Vol] 23.0 mg/dL Invalid Interpretation Code 7-25 [facility] Urea nitrogen/Creatinine [Mass ratio] 29 mg/mg Invalid Interpretation Code 6-20 [facility] Otheron 08-29-2018 Albumin (U) [Mass/Vol] 15.9 Invalid Interpretation Code <17.0 re3D 146 re3D 146.0 mg/dL Invalid Interpretation Code [facility] Urinalysison 08-29-2018 Albumin/Creatinine DL <= 20 mg/L (U) [Mass ratio] 8.5 mg/g Invalid Interpretation Code 0.0-30.0 [facility] Creatinine (U) [Mass/Vol] 187.40 mg/dL Invalid Interpretation Code Not Estab. mg/dL [facility] No Panel Informationon 08-01 Diabetic Retinal Eye Exam Invalid Interpretation Code [facility] 05-30-2018 Cholesterol [Mass/Vol] 266.0 mg/dL Invalid Interpretation Code 0-200 [facility] Cholesterol in HDL [Mass/Vol] 77.0 mg/dL Invalid Interpretation Code 50-100 [facility] Cholesterol in LDL [Mass/Vol] 166.0 mg/dL Invalid Interpretation Code 0-130 [facility] Triglyceride [Mass/Vol] 115.0 mg/dL Invalid Interpretation Code 30-150 [facility] Laboratory - Urinalysison Glucose Test strip (U) [Mass/Vol] Negative Invalid Interpretation Code negative [facility] Protein (U) [Mass/Vol] Negative Invalid Interpretation Code negative [facility] Metabolic Panelon 05-30-2018 Anion gap [Moles/Vol] 13 mmol/L Invalid Interpretation Code 10-20 [facility] Calcium [Mass/Vol] 9.30 mg/dL Invalid Interpretation Code 8.5-10.8 [facility] Chloride [Moles/Vol] 104 mmol/L Invalid Interpretation Code 100-112 [facility] CO2 [Moles/Vol] 28 mmol/L Invalid Interpretation Code 23-30 [facility] Creatinine [Mass/Vol] 0.70 mg/dL Invalid Interpretation Code 0.5-1.5 [facility] GFR/1.73 sq M predicted among non-blacks MDRD (S/P/Bld) [Vol rate/Area] 83 mL/min/{1.73_m2} Invalid Interpretation Code [facility] Glucose [Mass/Vol] 188.0 mg/dL Invalid Interpretation Code 80-117 [facility] HbA1c (Bld) [Mass fraction] 6.60 % Invalid Interpretation Code 4.3-6.3 [facility] Potassium [Moles/Vol] 4.6 mmol/L Invalid Interpretation Code 3.5-5.3 [facility] Sodium [Moles/Vol] 140 mmol/L Invalid Interpretation Code 135-148 [facility] Urea nitrogen [Mass/Vol] 20.0 mg/dL Invalid Interpretation Code 7-25 [facility] Urea nitrogen/Creatinine [Mass ratio] 29 mg/mg Invalid Interpretation Code 6-20 [facility] Otheron 05-30-2018 Cholesterol in VLDL [Mass/Vol] 23.0 mg/dL Invalid Interpretation Code 0-39 [facility] Cholesterol.total/Cho lesterol in HDL [Mass ratio] 3 {ratio} Invalid Interpretation Code [facility] Glucose Test strip (U) [Mass/Vol] Negative negative re3D 143 re3D See Above Invalid Interpretation Code 0-0 re3D 143.0 mg/dL Invalid Interpretation Code [facility] Thyroidon 05-30-2018 T4 [Mass/Vol] 7.83 ug/dL Invalid Interpretation Code 5.00-12.00 [facility] TSH Qn 0.47 m[IU]/L Invalid Interpretation Code 0.50-4.00 [facility] Urinalysison 05-30-2018 Protein (U) [Mass/Vol] Negative negative [facility] Metabolic Panelon 02-28-2018 Anion gap [Moles/Vol] 14 mmol/L Invalid Interpretation Code 10-20 [facility] Calcium [Mass/Vol] 9.0 mg/dL Invalid Interpretation Code 8.5-10.8 [facility] Chloride [Moles/Vol] 105 mmol/L Invalid Interpretation Code 100-112 [facility] CO2 [Moles/Vol] 27 mmol/L Invalid Interpretation Code 23-30 [facility] Creatinine [Mass/Vol] 0.80 mg/dL Invalid Interpretation Code 0.5-1.5 [facility] GFR/1.73 sq M predicted among non-blacks MDRD (S/P/Bld) [Vol rate/Area] 71 mL/min/{1.73_m2} Invalid Interpretation Code [facility] Glucose [Mass/Vol] 230.0 mg/dL Invalid Interpretation Code 80-117 [facility] HbA1c (Bld) [Mass fraction] 6.50 % Invalid Interpretation Code 4.3-6.3 [facility] Potassium [Moles/Vol] 4.6 mmol/L Invalid Interpretation Code 3.5-5.3 [facility] Sodium [Moles/Vol] 141 mmol/L Invalid Interpretation Code 135-148 [facility] Urea nitrogen [Mass/Vol] 24.0 mg/dL Invalid Interpretation Code 7-25 [facility] Urea nitrogen/Creatinine [Mass ratio] 30 mg/mg Invalid Interpretation Code 6-20 [facility] Otheron 02-28-2018 Albumin (U) [Mass/Vol] < 12.00 Invalid Interpretation Code < 17.0 ug/mL re3D 140 re3D 140.0 mg/dL Invalid Interpretation Code [facility] Urinalysison 02-28-2018 Creatinine (U) [Mass/Vol] 84.60 mg/dL Invalid Interpretation Code Not Estab. mg/dL [facility] 11-29-2017 Cholesterol [Mass/Vol] 264.0 mg/dL Invalid Interpretation Code 0-200 [facility] Cholesterol in HDL [Mass/Vol] 74.0 mg/dL Invalid Interpretation Code 50-100 [facility] Cholesterol in LDL [Mass/Vol] 164.0 mg/dL Invalid Interpretation Code 0-130 [facility] Triglyceride [Mass/Vol] 131.0 mg/dL Invalid Interpretation Code 30-150 [facility] Laboratory - Urinalysison Glucose Test strip (U) [Mass/Vol] Negative Invalid Interpretation Code negative [facility] Protein (U) [Mass/Vol] Negative Invalid Interpretation Code negative [facility] Metabolic Panelon 11-29-2017 Anion gap [Moles/Vol] 14 mmol/L Invalid Interpretation Code 10-20 [facility] Calcium [Mass/Vol] 9.0 mg/dL Invalid Interpretation Code 8.5-10.8 re[facility]D Chloride [Moles/Vol] 102 mmol/L Invalid Interpretation Code 100-112 [facility] CO2 [Moles/Vol] 29 mmol/L Invalid Interpretation Code 23-30 [facility] Creatinine [Mass/Vol] 0.70 mg/dL Invalid Interpretation Code 0.5-1.5 [facility] GFR/1.73 sq M predicted among non-blacks MDRD (S/P/Bld) [Vol rate/Area] 83 mL/min/{1.73_m2} Invalid Interpretation Code re[facility] Glucose [Mass/Vol] 159.0 mg/dL Invalid Interpretation Code 80-117 [facility] HbA1c (Bld) [Mass fraction] 6.70 % Invalid Interpretation Code 4.3-6.3 re[facility]D Potassium [Moles/Vol] 4.6 mmol/L Invalid Interpretation Code 3.5-5.3 re3D Sodium [Moles/Vol] 140 mmol/L Invalid Interpretation Code 135-148 re3D Urea nitrogen [Mass/Vol] 16.0 mg/dL Invalid Interpretation Code 7-25 re3D Urea nitrogen/Creatinine [Mass ratio] 23 mg/mg Invalid Interpretation Code 6-20 re[facility]D Otheron 11-29-2017 Albumin (U) [Mass/Vol] < 12.00 Invalid Interpretation Code < 17.0 ug/mL re3D Cholesterol in VLDL [Mass/Vol] 26.0 mg/dL Invalid Interpretation Code 0-39 [facility] Cholesterol.total/Cho lesterol in HDL [Mass ratio] 4 {ratio} Invalid Interpretation Code re[facility]D Glucose Test strip (U) [Mass/Vol] Negative negative re3[facility] pH (U) 7.0 [pH] Invalid Interpretation Code 4.5-7.8 re3D See Above Invalid Interpretation Code 0-0 re3D 146 re3D 146.0 mg/dL Invalid Interpretation Code [facility] Urinalysison 11-29-2017 Creatinine (U) [Mass/Vol] 71.60 mg/dL Invalid Interpretation Code Not Estab. mg/dL re[facility] Protein (U) [Mass/Vol] Negative negative [facility] 08-30-2017 Cholesterol [Mass/Vol] 267.0 mg/dL Invalid Interpretation Code 0-200 [facility] Cholesterol in HDL [Mass/Vol] 69.0 mg/dL Invalid Interpretation Code 50-100 [facility] Cholesterol in LDL [Mass/Vol] 169.0 mg/dL Invalid Interpretation Code 0-130 [facility] Triglyceride [Mass/Vol] 147.0 mg/dL Invalid Interpretation Code 30-150 [facility] Laboratory - Urinalysison Glucose Test strip (U) [Mass/Vol] Negative Invalid Interpretation Code negative [facility] Protein (U) [Mass/Vol] Negative Invalid Interpretation Code negative [facility] Metabolic Panelon 08-30-2017 Anion gap [Moles/Vol] 13 mmol/L Invalid Interpretation Code 10-20 re3D Calcium [Mass/Vol] 9.20 mg/dL Invalid Interpretation Code 8.5-10.8 re3D Chloride [Moles/Vol] 104 mmol/L Invalid Interpretation Code 100-112 re[facility] CO2 [Moles/Vol] 29 mmol/L Invalid Interpretation Code 23-30 re[facility] Creatinine [Mass/Vol] 0.70 mg/dL Invalid Interpretation Code 0.5-1.5 [facility] GFR/1.73 sq M predicted among non-blacks MDRD (S/P/Bld) [Vol rate/Area] 83 mL/min/{1.73_m2} Invalid Interpretation Code [facility] Glucose [Mass/Vol] 186.0 mg/dL Invalid Interpretation Code 80-117 [facility] HbA1c (Bld) [Mass fraction] 6.80 % Invalid Interpretation Code 4.3-6.3 re[facility]D Potassium [Moles/Vol] 4.4 mmol/L Invalid Interpretation Code 3.5-5.3 re3D Sodium [Moles/Vol] 142 mmol/L Invalid Interpretation Code 135-148 re3D Urea nitrogen [Mass/Vol] 17.0 mg/dL Invalid Interpretation Code 7-25 re[facility]D Urea nitrogen/Creatinine [Mass ratio] 24 mg/mg Invalid Interpretation Code 6-20 re[facility]D Otheron 08-30-2017 Albumin (U) [Mass/Vol] < 12.00 Invalid Interpretation Code < 17.0 ug/mL [facility] Cholesterol in VLDL [Mass/Vol] 29.0 mg/dL Invalid Interpretation Code 0-39 [facility] Cholesterol.total/Cho lesterol in HDL [Mass ratio] 4 {ratio} Invalid Interpretation Code [facility] Glucose Test strip (U) [Mass/Vol] Negative negative re3[facility] pH (U) 7.5 [pH] Invalid Interpretation Code 4.5-7.8 re3D 148 re3D See Above Invalid Interpretation Code 0-0 re3D 148.0 mg/dL Invalid Interpretation Code re[facility] Thyroidon 08-30-2017 T4 [Mass/Vol] 7.42 ug/dL Invalid Interpretation Code 5.00-12.00 re3D TSH Qn 0.53 m[IU]/L Invalid Interpretation Code 0.50-4.00 [facility]D Urinalysison 08-30-2017 Creatinine (U) [Mass/Vol] 28.10 mg/dL Invalid Interpretation Code Not Estab. mg/dL re[facility] Protein (U) [Mass/Vol] Negative negative [facility] 05-29-2017 Cholesterol [Mass/Vol] 290.0 mg/dL Invalid Interpretation Code 0-200 [facility] Cholesterol in HDL [Mass/Vol] 76.0 mg/dL Invalid Interpretation Code 50-100 [facility] Cholesterol in LDL [Mass/Vol] 179.0 mg/dL Invalid Interpretation Code 0-130 [facility] Triglyceride [Mass/Vol] 174.0 mg/dL Invalid Interpretation Code 30-150 [facility] Laboratory - Urinalysison Glucose Test strip (U) [Mass/Vol] Negative Invalid Interpretation Code negative re3D Protein (U) [Mass/Vol] Negative Invalid Interpretation Code negative [facility]D Metabolic Panelon 05-29-2017 Anion gap [Moles/Vol] 16 mmol/L Invalid Interpretation Code 10-20 re3D Calcium [Mass/Vol] 9.0 mg/dL Invalid Interpretation Code 8.5-10.8 re3D Chloride [Moles/Vol] 100 mmol/L Invalid Interpretation Code 100-112 re[facility]D CO2 [Moles/Vol] 30 mmol/L Invalid Interpretation Code 23-30 re[facility]D Creatinine [Mass/Vol] 0.90 mg/dL Invalid Interpretation Code 0.5-1.5 re[facility]D GFR/1.73 sq M predicted among non-blacks MDRD (S/P/Bld) [Vol rate/Area] 62 mL/min/{1.73_m2} Invalid Interpretation Code re[facility]D Glucose [Mass/Vol] 111.0 mg/dL Invalid Interpretation Code 80-117 [facility] HbA1c (Bld) [Mass fraction] 6.50 % Invalid Interpretation Code 4.3-6.3 re3D Potassium [Moles/Vol] 4.8 mmol/L Invalid Interpretation Code 3.5-5.3 re3D Sodium [Moles/Vol] 141 mmol/L Invalid Interpretation Code 135-148 re3D Urea nitrogen [Mass/Vol] 16.0 mg/dL Invalid Interpretation Code 7-25 re3D Urea nitrogen/Creatinine [Mass ratio] 18 mg/mg Invalid Interpretation Code 6-20 re3D Otheron 05-29-2017 Albumin (U) [Mass/Vol] < 12.00 Invalid Interpretation Code < 17.0 ug/mL re3D Cholesterol in VLDL [Mass/Vol] 35.0 mg/dL Invalid Interpretation Code 0-39 re[facility] Cholesterol.total/Cho lesterol in HDL [Mass ratio] 4 {ratio} Invalid Interpretation Code re3D Glucose Test strip (U) [Mass/Vol] Negative negative re3D pH (U) 7.0 [pH] Invalid Interpretation Code 4.5-7.8 re3D See Above Invalid Interpretation Code 0-0 re3D 140 re3D 140.0 mg/dL Invalid Interpretation Code re[facility]D Urinalysison 05-29-2017 Creatinine (U) [Mass/Vol] 45.60 mg/dL Invalid Interpretation Code Not Estab. mg/dL re3D Protein (U) [Mass/Vol] Negative negative re3D Laboratory - Urinalysison Glucose Test strip (U) [Mass/Vol] Negative Invalid Interpretation Code negative re3D Protein (U) [Mass/Vol] Negative Invalid Interpretation Code negative re3D Metabolic Panelon 03-01-2017 Anion gap [Moles/Vol] 14 mmol/L Invalid Interpretation Code 10-20 re3D Calcium [Mass/Vol] 8.90 mg/dL Invalid Interpretation Code 8.5-10.8 re3D Chloride [Moles/Vol] 105 mmol/L Invalid Interpretation Code 100-112 re3D CO2 [Moles/Vol] 28 mmol/L Invalid Interpretation Code 23-30 re3D Creatinine [Mass/Vol] 0.70 mg/dL Invalid Interpretation Code 0.5-1.5 re3D GFR/1.73 sq M predicted among non-blacks MDRD (S/P/Bld) [Vol rate/Area] 83 mL/min/{1.73_m2} Invalid Interpretation Code re3D Glucose [Mass/Vol] 149.0 mg/dL Invalid Interpretation Code 80-117 re3D HbA1c (Bld) [Mass fraction] 6.50 % Invalid Interpretation Code 4.3-6.3 re3D Potassium [Moles/Vol] 4.5 mmol/L Invalid Interpretation Code 3.5-5.3 re3D Sodium [Moles/Vol] 142 mmol/L Invalid Interpretation Code 135-148 re3D Urea nitrogen [Mass/Vol] 15.0 mg/dL Invalid Interpretation Code 7-25 re3D Urea nitrogen/Creatinine [Mass ratio] 21 mg/mg Invalid Interpretation Code 6-20 re3D Otheron 03-01-2017 Albumin (U) [Mass/Vol] < 12.00 Invalid Interpretation Code < 17.0 ug/mL re3D Glucose Test strip (U) [Mass/Vol] Negative negative re3D pH (U) 7.0 [pH] Invalid Interpretation Code 4.5-7.8 re3D See Above Invalid Interpretation Code 0-0 re3D 140 re3D 140.0 mg/dL Invalid Interpretation Code re3D Urinalysison 03-01-2017 Creatinine (U) [Mass/Vol] 111.80 mg/dL Invalid Interpretation Code Not Estab. mg/dL re3D Protein (U) [Mass/Vol] Negative negative re3D [facility] 11-16-2016 Cholesterol [Mass/Vol] 263.0 mg/dL Invalid Interpretation Code 0-200 re3D Cholesterol in HDL [Mass/Vol] 80.0 mg/dL Invalid Interpretation Code 50-100 re3D Cholesterol in LDL [Mass/Vol] 157.0 mg/dL Invalid Interpretation Code 0-130 re3D Triglyceride [Mass/Vol] 129.0 mg/dL Invalid Interpretation Code 30-150 re3D Laboratory - Urinalysison Glucose Test strip (U) [Mass/Vol] Negative Invalid Interpretation Code negative re3D Protein (U) [Mass/Vol] Negative Invalid Interpretation Code negative re3D Metabolic Panelon 11-16-2016 Glucose [Mass/Vol] 155.0 mg/dL Invalid Interpretation Code 80-117 re3D HbA1c (Bld) [Mass fraction] 6.30 % Invalid Interpretation Code 4.3-6.3 re3D Otheron 11-16-2016 Cholesterol in VLDL [Mass/Vol] 26.0 mg/dL Invalid Interpretation Code 0-39 re3D Cholesterol.total/Cho lesterol in HDL [Mass ratio] 3 {ratio} Invalid Interpretation Code re3D Glucose Test strip (U) [Mass/Vol] Negative negative re3D pH (U) 7.0 [pH] Invalid Interpretation Code 4.5-7.8 re3D See Above Invalid Interpretation Code 0-0 re3D 134 re3D 134.0 mg/dL Invalid Interpretation Code re3D Urinalysison 11-16-2016 Protein (U) [Mass/Vol] Negative negative re3D Laboratory - Urinalysison Glucose Test strip (U) [Mass/Vol] Negative Invalid Interpretation Code negative re3D Protein (U) [Mass/Vol] Negative Invalid Interpretation Code negative re3D Metabolic Panelon 08-17-2016 Anion gap [Moles/Vol] 17 mmol/L Invalid Interpretation Code 10-20 re3D Calcium [Mass/Vol] 9.30 mg/dL Invalid Interpretation Code 8.5-10.8 re3D Chloride [Moles/Vol] 101 mmol/L Invalid Interpretation Code 100-112 re3D CO2 [Moles/Vol] 29 mmol/L Invalid Interpretation Code 23-30 re3D Creatinine [Mass/Vol] 0.70 mg/dL Invalid Interpretation Code 0.5-1.5 re3D GFR/1.73 sq M predicted among non-blacks MDRD (S/P/Bld) [Vol rate/Area] 83 mL/min/{1.73_m2} Invalid Interpretation Code re3D Glucose [Mass/Vol] 276.0 mg/dL Invalid Interpretation Code 80-117 [facility] HbA1c (Bld) [Mass fraction] 6.60 % Invalid Interpretation Code 4.3-6.3 [facility] Potassium [Moles/Vol] 5.2 mmol/L Invalid Interpretation Code 3.5-5.3 [facility] Sodium [Moles/Vol] 142 mmol/L Invalid Interpretation Code 135-148 re3D Urea nitrogen [Mass/Vol] 16.0 mg/dL Invalid Interpretation Code 7-25 [facility] Urea nitrogen/Creatinine [Mass ratio] 23 mg/mg Invalid Interpretation Code 6-20 re3D Otheron 08-17-2016 Albumin (U) [Mass/Vol] < 12.00 Invalid Interpretation Code < 17.0 ug/mL [facility] Glucose Test strip (U) [Mass/Vol] Negative negative [facility] pH (U) 7.0 [pH] Invalid Interpretation Code 4.5-7.8 re3[facility] 143 [facility] 143.0 mg/dL Invalid Interpretation Code re[facility] Thyroidon 08-17-2016 T4 [Mass/Vol] 7.43 ug/dL Invalid Interpretation Code 5.00-12.00 re3[facility] TSH Qn 0.31 m[IU]/L Invalid Interpretation Code 0.50-4.00 re3D Urinalysison 08-17-2016 Creatinine (U) [Mass/Vol] 51.10 mg/dL Invalid Interpretation Code Not Estab. mg/dL [facility] Protein (U) [Mass/Vol] Negative negative [facility] 05-11-2016 Cholesterol [Mass/Vol] 262.0 mg/dL Invalid Interpretation Code 0-200 [facility] Cholesterol in HDL [Mass/Vol] 92.0 mg/dL Invalid Interpretation Code 50-100 [facility] Cholesterol in LDL [Mass/Vol] 153.0 mg/dL Invalid Interpretation Code 0-130 [facility] Triglyceride [Mass/Vol] 85.0 mg/dL Invalid Interpretation Code 30-150 [facility] Laboratory - Urinalysison Glucose Test strip (U) [Mass/Vol] Negative Invalid Interpretation Code negative [facility] Protein (U) [Mass/Vol] Negative Invalid Interpretation Code negative [facility] Metabolic Panelon 05-11-2016 ALT [Catalytic activity/Vol] 54.0 U/L Invalid Interpretation Code 0-50 re[facility] Glucose [Mass/Vol] 199.0 mg/dL Invalid Interpretation Code 80-117 [facility] HbA1c (Bld) [Mass fraction] 6.20 % Invalid Interpretation Code 4.3-6.3 [facility] Otheron 05-11-2016 Albumin (U) [Mass/Vol] < 12.00 Invalid Interpretation Code < 4.0-17.0 [facility] Cholesterol in VLDL [Mass/Vol] 17.0 mg/dL Invalid Interpretation Code 0-39 re3[facility] Cholesterol.total/Cho lesterol in HDL [Mass ratio] 3 {ratio} Invalid Interpretation Code re3D Glucose Test strip (U) [Mass/Vol] Negative negative [facility] pH (U) 7.0 [pH] Invalid Interpretation Code 4.5-7.8 re3D 131 re3D See Above Invalid Interpretation Code 0-0 re3D 54.0 U/L 0-50 re3D 131.0 mg/dL Invalid Interpretation Code re[facility] Urinalysison 05-11-2016 Creatinine (U) [Mass/Vol] 29.0 mg/dL Invalid Interpretation Code Not Estab. mg/dL [facility] Protein (U) [Mass/Vol] Negative negative [facility] 02-10-2016 Cholesterol [Mass/Vol] 240.0 mg/dL Invalid Interpretation Code 0-200 [facility] Cholesterol in HDL [Mass/Vol] 68.0 mg/dL Invalid Interpretation Code 50-100 [facility] Cholesterol in LDL [Mass/Vol] 144.0 mg/dL Invalid Interpretation Code 0-130 [facility] Triglyceride [Mass/Vol] 138.0 mg/dL Invalid Interpretation Code 30-150 [facility] Laboratory - Chemistry and C hemistry - challengeon 02-10-2016 Bilirubin Ql (U) Negative Invalid Interpretation Code Negative re3[facility] Ketones Ql (U) Negative Invalid Interpretation Code Negative re[facility] Urobilinogen (U) [Mass/Vol] normal Invalid Interpretation Code normal [facility] Laboratory - Urinalysison Nitrite Ql (U) Negative Invalid Interpretation Code Negative [facility] Protein Ql (U) Negative Invalid Interpretation Code Negative [facility] Metabolic Panelon 02-10-2016 Anion gap [Moles/Vol] 16 mmol/L Invalid Interpretation Code 10-20 re[facility] Calcium [Mass/Vol] 8.80 mg/dL Invalid Interpretation Code 8.5-10.8 [facility] Chloride [Moles/Vol] 99 mmol/L Invalid Interpretation Code 100-112 re[facility] CO2 [Moles/Vol] 25 mmol/L Invalid Interpretation Code 23-30 [facility] Creatinine [Mass/Vol] 0.60 mg/dL Invalid Interpretation Code 0.5-1.5 [facility] GFR/1.73 sq M predicted among non-blacks MDRD (S/P/Bld) [Vol rate/Area] 100 mL/min/{1.73_m2} Invalid Interpretation Code re[facility] Glucose [Mass/Vol] 272.0 mg/dL Invalid Interpretation Code 80-117 [facility] HbA1c (Bld) [Mass fraction] 6.20 % Invalid Interpretation Code 4.3-6.3 [facility] Potassium [Moles/Vol] 4.4 mmol/L Invalid Interpretation Code 3.5-5.3 [facility] Sodium [Moles/Vol] 136 mmol/L Invalid Interpretation Code 135-148 re3D Urea nitrogen [Mass/Vol] 15.0 mg/dL Invalid Interpretation Code 7-25 re[facility] Urea nitrogen/Creatinine [Mass ratio] 25 mg/mg Invalid Interpretation Code 6-20 [facility] Otheron 02-10-2016 Albumin (U) [Mass/Vol] < 12.00 Invalid Interpretation Code < 4.0-17.0 [facility] Bilirubin Ql (U) Negative Negative [facility] [place] Cholesterol in VLDL [Mass/Vol] 28.0 mg/dL Invalid Interpretation Code 0-39 re3D Cholesterol.total/Cho lesterol in HDL [Mass ratio] 4 {ratio} Invalid Interpretation Code re3D Glucose Test strip (U) [Mass/Vol] 2+ Invalid Interpretation Code Negative [facility] Hemoglobin Ql (U) Trace Invalid Interpretation Code Negative re3D Nitrite Ql (U) Negative Negative [facility] pH (U) 6.5 [pH] Invalid Interpretation Code 4.5-7.8 [facility] Protein Ql (U) Negative Negative re3D Urobilinogen Test strip (U) [Mass/Vol] normal normal re3D See Above Invalid Interpretation Code 0-0 re3D 131 re3D 131.0 mg/dL Invalid Interpretation Code re3D Urinalysison 02-10-2016 Clarity (U) clear Invalid Interpretation Code Clear re3[facility] Color (U) yellow Invalid Interpretation Code yellow re3D Creatinine (U) [Mass/Vol] 51.60 mg/dL Invalid Interpretation Code Not Estab. mg/dL re3D Ketones Ql (U) Negative Negative re[facility] Leukocyte esterase Test strip Ql (U) Trace Invalid Interpretation Code Negative re3D Specific gravity (U) [Rel density] 1.010 Invalid Interpretation Code 1.003-1.029 [facility] 11-11-2015 Cholesterol [Mass/Vol] 255.0 mg/dL Invalid Interpretation Code 0-200 [facility] Cholesterol in HDL [Mass/Vol] 68.0 mg/dL Invalid Interpretation Code 50-100 [facility] Cholesterol in LDL [Mass/Vol] 151.0 mg/dL Invalid Interpretation Code 0-130 [facility]D Triglyceride [Mass/Vol] 181.0 mg/dL Invalid Interpretation Code 30-150 [facility] Laboratory - Urinalysison Glucose Test strip (U) [Mass/Vol] Negative Invalid Interpretation Code negative [facility]3D Metabolic Panelon 11-11-2015 Anion gap [Moles/Vol] 16 mmol/L Invalid Interpretation Code 10-20 re3[facility] Calcium [Mass/Vol] 9.30 mg/dL Invalid Interpretation Code 8.5-10.8 re3D Chloride [Moles/Vol] 101 mmol/L Invalid Interpretation Code 100-112 re3D CO2 [Moles/Vol] 27 mmol/L Invalid Interpretation Code 23-30 re3D Creatinine [Mass/Vol] 0.70 mg/dL Invalid Interpretation Code 0.5-1.5 re3D GFR/1.73 sq M predicted among non-blacks MDRD (S/P/Bld) [Vol rate/Area] 83 mL/min/{1.73_m2} Invalid Interpretation Code re3D Glucose [Mass/Vol] 112.0 mg/dL Invalid Interpretation Code 80-117 [facility]D HbA1c (Bld) [Mass fraction] 6.40 % Invalid Interpretation Code 4.3-6.3 re3D Potassium [Moles/Vol] 4.8 mmol/L Invalid Interpretation Code 3.5-5.3 re3D Sodium [Moles/Vol] 139 mmol/L Invalid Interpretation Code 135-148 re3D Urea nitrogen [Mass/Vol] 13.0 mg/dL Invalid Interpretation Code 7-25 re3D Urea nitrogen/Creatinine [Mass ratio] 19 mg/mg Invalid Interpretation Code 6-20 [facility]D Otheron 11-11-2015 Albumin (U) [Mass/Vol] 21.7 Invalid Interpretation Code 0.0-17.0 re3D Cholesterol in VLDL [Mass/Vol] 36.0 mg/dL Invalid Interpretation Code 0-39 re[facility] Cholesterol.total/Cho lesterol in HDL [Mass ratio] 4 {ratio} Invalid Interpretation Code re3D Glucose Test strip (U) [Mass/Vol] Negative negative [facility] pH (U) 6.0 [pH] Invalid Interpretation Code 4.5-7.8 re3D 137 re3D See Above Invalid Interpretation Code 0-0 re3D 137.0 mg/dL Invalid Interpretation Code re3D Thyroidon 11-11-2015 T4 [Mass/Vol] 10.22 ug/dL Invalid Interpretation Code 5.00-12.00 re3D TSH Qn 1.72 m[IU]/L Invalid Interpretation Code 0.50-4.00 re3D Urinalysison 11-11-2015 Albumin/Creatinine DL <= 20 mg/L (U) [Mass ratio] 7.7 mg/g Invalid Interpretation Code 0.0-30.0 re3D Creatinine (U) [Mass/Vol] 280.10 mg/dL Invalid Interpretation Code Not Estab. mg/dL re3[facility] Protein (U) [Mass/Vol] trace Invalid Interpretation Code negative re[facility] 08-05-2015 Cholesterol [Mass/Vol] 285.0 mg/dL Invalid Interpretation Code 0-200 [facility]D Cholesterol in HDL [Mass/Vol] 57.0 mg/dL Invalid Interpretation Code 50-100 re3D Cholesterol in LDL [Mass/Vol] 195.0 mg/dL Invalid Interpretation Code 0-130 [facility]3D Triglyceride [Mass/Vol] 164.0 mg/dL Invalid Interpretation Code 30-150 [facility] Laboratory - Urinalysison Glucose Test strip (U) [Mass/Vol] Negative Invalid Interpretation Code negative re3D Protein (U) [Mass/Vol] Negative Invalid Interpretation Code negative [facility]D Metabolic Panelon 08-05-2015 Glucose [Mass/Vol] 166.0 mg/dL Invalid Interpretation Code 80-117 re3[facility] HbA1c (Bld) [Mass fraction] 6.0 % Invalid Interpretation Code 4.3-6.3 re3D Otheron 08-05-2015 Albumin (U) [Mass/Vol] < 12.00 Invalid Interpretation Code < 4.0-17.0 [facility]3D Cholesterol in VLDL [Mass/Vol] 33.0 mg/dL Invalid Interpretation Code 0-39 re[facility]D Cholesterol.total/Cho lesterol in HDL [Mass ratio] 5 {ratio} Invalid Interpretation Code re3D Glucose Test strip (U) [Mass/Vol] Negative negative [facility] pH (U) 6.5 [pH] Invalid Interpretation Code 4.5-7.8 re3D See Above Invalid Interpretation Code 0-0 re3D 126 re3D 126.0 mg/dL Invalid Interpretation Code re3D Urinalysison 08-05-2015 Creatinine (U) [Mass/Vol] 65.30 mg/dL Invalid Interpretation Code Not Estab. mg/dL re3D Protein (U) [Mass/Vol] Negative negative [facility] Laboratory - Urinalysison Glucose Test strip (U) [Mass/Vol] Negative Invalid Interpretation Code negative re3D Protein (U) [Mass/Vol] Negative Invalid Interpretation Code negative re3D Metabolic Panelon 04-22-2015 Anion gap [Moles/Vol] 18 mmol/L Invalid Interpretation Code 10-20 re3D Calcium [Mass/Vol] 9.20 mg/dL Invalid Interpretation Code 8.5-10.8 re3D Chloride [Moles/Vol] 97 mmol/L Invalid Interpretation Code 100-112 re3D CO2 [Moles/Vol] 26 mmol/L Invalid Interpretation Code 23-30 re3D Creatinine [Mass/Vol] 0.70 mg/dL Invalid Interpretation Code 0.5-1.5 re3D GFR/1.73 sq M predicted among non-blacks MDRD (S/P/Bld) [Vol rate/Area] 84 mL/min/{1.73_m2} Invalid Interpretation Code re3D Glucose [Mass/Vol] 151.0 mg/dL Invalid Interpretation Code 80-117 [facility]D HbA1c (Bld) [Mass fraction] 7.10 % Invalid Interpretation Code 4.3-6.3 re3D Potassium [Moles/Vol] 4.4 mmol/L Invalid Interpretation Code 3.5-5.3 re3D Sodium [Moles/Vol] 137 mmol/L Invalid Interpretation Code 135-148 re3D Urea nitrogen [Mass/Vol] 14.0 mg/dL Invalid Interpretation Code 7-25 re3D Urea nitrogen/Creatinine [Mass ratio] 20 mg/mg Invalid Interpretation Code 6-20 re[facility]D Otheron 04-22-2015 Glucose Test strip (U) [Mass/Vol] Negative negative re3[facility] pH (U) 6.0 [pH] Invalid Interpretation Code 4.5-7.8 re3D See Above Invalid Interpretation Code 0-0 re[facility] 157 [facility] 157.0 mg/dL Invalid Interpretation Code re3D Thyroidon 04-22-2015 T4 [Mass/Vol] 9.22 ug/dL Invalid Interpretation Code 5.00-12.00 re3D TSH Qn 3.12 m[IU]/L Invalid Interpretation Code 0.50-4.00 re3D Urinalysison 04-22-2015 Protein (U) [Mass/Vol] Negative negative [facility] 01-20-2015 Cholesterol [Mass/Vol] 270.0 mg/dL Invalid Interpretation Code 0-200 re3D Cholesterol in HDL [Mass/Vol] 53.0 mg/dL Invalid Interpretation Code 50-100 re3D Cholesterol in LDL [Mass/Vol] 181.0 mg/dL Invalid Interpretation Code 0-130 re3D Triglyceride [Mass/Vol] 182.0 mg/dL Invalid Interpretation Code 30-150 re[facility]D Laboratory - Urinalysison Glucose Test strip (U) [Mass/Vol] Negative Invalid Interpretation Code negative re3D Protein (U) [Mass/Vol] Negative Invalid Interpretation Code negative re3D Metabolic Panelon 01-20-2015 ALT [Catalytic activity/Vol] 21.0 U/L Invalid Interpretation Code 0-50 re3D Anion gap [Moles/Vol] 16 mmol/L Invalid Interpretation Code 10-20 re3D Calcium [Mass/Vol] 9.10 mg/dL Invalid Interpretation Code 8.5-10.8 re3D Chloride [Moles/Vol] 102 mmol/L Invalid Interpretation Code 100-112 re3D CO2 [Moles/Vol] 26 mmol/L Invalid Interpretation Code 23-30 re3D Creatinine [Mass/Vol] 1.0 mg/dL Invalid Interpretation Code 0.5-1.5 re3D GFR/1.73 sq M predicted among non-blacks MDRD (S/P/Bld) [Vol rate/Area] 55 mL/min/{1.73_m2} Invalid Interpretation Code re3D Glucose [Mass/Vol] 152.0 mg/dL Invalid Interpretation Code 80-117 re3D HbA1c (Bld) [Mass fraction] 7.20 % Invalid Interpretation Code 4.3-6.3 re3D Potassium [Moles/Vol] 5.2 mmol/L Invalid Interpretation Code 3.5-5.3 re3D Sodium [Moles/Vol] 139 mmol/L Invalid Interpretation Code 135-148 re3D Urea nitrogen [Mass/Vol] 18.0 mg/dL Invalid Interpretation Code 7-25 re3D Urea nitrogen/Creatinine [Mass ratio] 18 mg/mg Invalid Interpretation Code 6-20 re[facility]D Otheron 01-20-2015 Albumin (U) [Mass/Vol] < 12.00 Invalid Interpretation Code < 4.0-17.0 re3D Cholesterol in VLDL [Mass/Vol] 36.0 mg/dL Invalid Interpretation Code 0-39 re3D Cholesterol.total/Cho lesterol in HDL [Mass ratio] 5 {ratio} Invalid Interpretation Code re3D Glucose Test strip (U) [Mass/Vol] Negative negative re3D pH (U) 7.0 [pH] Invalid Interpretation Code 4.5-7.8 re3D See Above Invalid Interpretation Code 0-0 re3D 160.0 mg/dL Invalid Interpretation Code re3D 21.0 U/L 0-50 re3D Urinalysison 01-20-2015 Creatinine (U) [Mass/Vol] 57.10 mg/dL Invalid Interpretation Code Not Estab. mg/dL re3D Protein (U) [Mass/Vol] Negative negative [facility] 09-22-2014 Cholesterol [Mass/Vol] 259.0 mg/dL Invalid Interpretation Code 0-200 re3D Cholesterol in HDL [Mass/Vol] 73.0 mg/dL Invalid Interpretation Code 50-100 re3D Cholesterol in LDL [Mass/Vol] 164.0 mg/dL Invalid Interpretation Code 0-130 re3D Triglyceride [Mass/Vol] 111.0 mg/dL Invalid Interpretation Code 30-150 re3D Laboratory - Chemistry and C hemistry - challengeon 09-22-2014 ALT [Catalytic activity/Vol] U/L Invalid Interpretation Code 0-50 [facility] Laboratory - Urinalysison Glucose Test strip (U) [Mass/Vol] Negative Invalid Interpretation Code negative re3D Protein (U) [Mass/Vol] Negative Invalid Interpretation Code negative re3D Metabolic Panelon 09-22-2014 ALT [Catalytic activity/Vol] U/L 0-50 re3D Anion gap [Moles/Vol] 15 mmol/L Invalid Interpretation Code 10-20 re3D Calcium [Mass/Vol] 9.10 mg/dL Invalid Interpretation Code 8.5-10.8 re3D Chloride [Moles/Vol] 107 mmol/L Invalid Interpretation Code 100-112 re3D CO2 [Moles/Vol] 28 mmol/L Invalid Interpretation Code 23-30 re3D Creatinine [Mass/Vol] 0.70 mg/dL Invalid Interpretation Code 0.5-1.5 re3D GFR/1.73 sq M predicted among non-blacks MDRD (S/P/Bld) [Vol rate/Area] 84 mL/min/{1.73_m2} Invalid Interpretation Code re3D Glucose [Mass/Vol] 132.0 mg/dL Invalid Interpretation Code 80-117 re3D HbA1c (Bld) [Mass fraction] 6.50 % Invalid Interpretation Code 4.3-6.3 re3D Potassium [Moles/Vol] 4.6 mmol/L Invalid Interpretation Code 3.5-5.3 re3D Sodium [Moles/Vol] 145 mmol/L Invalid Interpretation Code 135-148 re3D Urea nitrogen [Mass/Vol] 22.0 mg/dL Invalid Interpretation Code 7-25 re3D Urea nitrogen/Creatinine [Mass ratio] 31 mg/mg Invalid Interpretation Code 6-20 re3D Otheron 09-22-2014 Albumin (U) [Mass/Vol] < 12.00 Invalid Interpretation Code < 4.0-17.0 re3D Cholesterol in VLDL [Mass/Vol] 22.0 mg/dL Invalid Interpretation Code 0-39 re3D Cholesterol.total/Cho lesterol in HDL [Mass ratio] 4 {ratio} Invalid Interpretation Code re3D Glucose Test strip (U) [Mass/Vol] Negative negative re3D pH (U) 6.0 [pH] Invalid Interpretation Code 4.5-7.8 re3D See Above Invalid Interpretation Code 0-0 re3D 140.0 mg/dL Invalid Interpretation Code re3D < 5.0 0-50 re3D Thyroidon 09-22-2014 T4 [Mass/Vol] 8.14 ug/dL Invalid Interpretation Code 5.00-12.00 re3D TSH Qn 0.94 m[IU]/L Invalid Interpretation Code 0.50-4.00 re3D Urinalysison 09-22-2014 Creatinine (U) [Mass/Vol] 185.60 mg/dL Invalid Interpretation Code Not Estab. mg dL re3D Protein (U) [Mass/Vol] Negative negative re[facility] 12-03-2014 Cholesterol [Mass/Vol] 261.0 mg/dL Invalid Interpretation Code 0-200 re3D Cholesterol in HDL [Mass/Vol] 67.0 mg/dL Invalid Interpretation Code 50-100 re3D Cholesterol in LDL [Mass/Vol] 170.0 mg/dL Invalid Interpretation Code 0-130 re3D Triglyceride [Mass/Vol] 121.0 mg/dL Invalid Interpretation Code 30-150 re3D Laboratory - Chemistry and C hemistry - challengeon 06-16-2014 Bilirubin Ql (U) Negative Invalid Interpretation Code Negative re3D Ketones Ql (U) Negative Invalid Interpretation Code Negative re3D Urobilinogen (U) [Mass/Vol] normal Invalid Interpretation Code normal re3D Laboratory - Urinalysison Leukocyte esterase Test strip Ql (U) Negative Invalid Interpretation Code Negative re3D Nitrite Ql (U) Negative Invalid Interpretation Code Negative re3D Protein Ql (U) Negative Invalid Interpretation Code Negative re3D Metabolic Panelon 06-16-2014 Anion gap [Moles/Vol] 13 mmol/L Invalid Interpretation Code 10-20 re3D Calcium [Mass/Vol] 9.30 mg/dL Invalid Interpretation Code 8.5-10.8 re3D Chloride [Moles/Vol] 105 mmol/L Invalid Interpretation Code 100-112 re3D CO2 [Moles/Vol] 29 mmol/L Invalid Interpretation Code 23-30 re3D Creatinine [Mass/Vol] 0.70 mg/dL Invalid Interpretation Code 0.5-1.5 [facility] [place] GFR/1.73 sq M predicted among non-blacks MDRD (S/P/Bld) [Vol rate/Area] 84 mL/min/{1.73_m2} Invalid Interpretation Code [facility] [place] Glucose [Mass/Vol] 58.0 mg/dL Invalid Interpretation Code 80-117 [facility] [place] HbA1c (Bld) [Mass fraction] 7.0 % Invalid Interpretation Code 4.3-6.3 [facility] [place] Potassium [Moles/Vol] 4.2 mmol/L Invalid Interpretation Code 3.5-5.3 [facility] [place] Sodium [Moles/Vol] 143 mmol/L Invalid Interpretation Code 135-148 [facility] [place] Urea nitrogen [Mass/Vol] 14.0 mg/dL Invalid Interpretation Code 7-25 [facility] [place] Urea nitrogen/Creatinine [Mass ratio] 20 mg/mg Invalid Interpretation Code 6-20 [facility] [place] Otheron 06-16-2014 Albumin (U) [Mass/Vol] < 12.00 Invalid Interpretation Code < 4.0-17.0 [facility] [place] Bilirubin Ql (U) Negative Negative [facility] [place] Cholesterol in VLDL [Mass/Vol] 24.0 mg/dL Invalid Interpretation Code 0-39 [facility] [place] Cholesterol.total/Cho lesterol in HDL [Mass ratio] 4 {ratio} Invalid Interpretation Code [facility] [place] Glucose Test strip (U) [Mass/Vol] 4+ Invalid Interpretation Code Negative [facility] [place] Hemoglobin Ql (U) Trace Invalid Interpretation Code Negative re3D Nitrite Ql (U) Negative Negative re3D pH (U) 7 [pH] Invalid Interpretation Code 4.5-7.8 re3D Protein Ql (U) Negative Negative re3D Urobilinogen Test strip (U) [Mass/Vol] normal normal re3D See Above Invalid Interpretation Code 0-0 re3D 154.0 mg/dL Invalid Interpretation Code re3D Thyroidon 06-16-2014 T4 [Mass/Vol] 9.22 ug/dL Invalid Interpretation Code 5.00-12.00 re3D TSH Qn 0.76 m[IU]/L Invalid Interpretation Code 0.50-4.00 re3D Urinalysison 06-16-2014 Clarity (U) clear Invalid Interpretation Code Clear re3D Color (U) yellow Invalid Interpretation Code yellow re3D Creatinine (U) [Mass/Vol] 49.80 mg/dL Invalid Interpretation Code Not Estab. mg dL re3D Ketones Ql (U) Negative Negative re3D Leukocyte esterase Test strip Ql (U) Negative Negative re3D Specific gravity (U) [Rel density] 1.010 Invalid Interpretation Code 1.003-1.029 re3D [facility] 03-17-2014 Cholesterol [Mass/Vol] 253.0 mg/dL Invalid Interpretation Code 0-200 re3D Cholesterol in HDL [Mass/Vol] 68.0 mg/dL Invalid Interpretation Code 50-100 re3D Cholesterol in LDL [Mass/Vol] 168.0 mg/dL Invalid Interpretation Code 0-130 re3D Triglyceride [Mass/Vol] 84.0 mg/dL Invalid Interpretation Code 30-150 re3D Laboratory - Urinalysison Glucose Test strip (U) [Mass/Vol] Negative Invalid Interpretation Code negative re3D Protein (U) [Mass/Vol] Negative Invalid Interpretation Code negative [facility] Metabolic Panelon 03-17-2014 Anion gap [Moles/Vol] 8 mmol/L Invalid Interpretation Code 10-20 re3D Calcium [Mass/Vol] 9.10 mg/dL Invalid Interpretation Code 8.5-10.8 re3D Chloride [Moles/Vol] 103 mmol/L Invalid Interpretation Code 100-112 re3D CO2 [Moles/Vol] 32 mmol/L Invalid Interpretation Code 23-30 re3D Creatinine [Mass/Vol] 0.70 mg/dL Invalid Interpretation Code 0.5-1.5 re3D GFR/1.73 sq M predicted among non-blacks MDRD (S/P/Bld) [Vol rate/Area] 84 mL/min/{1.73_m2} Invalid Interpretation Code re3D Glucose [Mass/Vol] 161.0 mg/dL Invalid Interpretation Code 80-117 re3D HbA1c (Bld) [Mass fraction] 6.20 % Invalid Interpretation Code 4.3-6.3 re3D Potassium [Moles/Vol] 4.4 mmol/L Invalid Interpretation Code 3.5-5.3 re3D Sodium [Moles/Vol] 139 mmol/L Invalid Interpretation Code 135-148 re3D Urea nitrogen [Mass/Vol] 21.0 mg/dL Invalid Interpretation Code 7-25 re3D Urea nitrogen/Creatinine [Mass ratio] 30 mg/mg Invalid Interpretation Code 6-20 re3D Otheron 03-17-2014 Albumin (U) [Mass/Vol] < 12.00 Invalid Interpretation Code < 4.0-17.0 re3D Cholesterol in VLDL [Mass/Vol] 17.0 mg/dL Invalid Interpretation Code 0-39 re3D Cholesterol.total/Cho lesterol in HDL [Mass ratio] 4 {ratio} Invalid Interpretation Code re3D Glucose Test strip (U) [Mass/Vol] Negative negative re3D pH (U) 7.0 [pH] Invalid Interpretation Code 4.5-7.8 re3D 131.0 mg/dL Invalid Interpretation Code re3D See Above Invalid Interpretation Code 0-0 re3D Urinalysison 03-17-2014 Creatinine (U) [Mass/Vol] 70.80 mg/dL Invalid Interpretation Code Not Estab. mg dL re3D Protein (U) [Mass/Vol] Negative negative re[facility] 12-16-2013 Cholesterol [Mass/Vol] 241.0 mg/dL Invalid Interpretation Code 0-200 re3D Cholesterol in HDL [Mass/Vol] 57.0 mg/dL Invalid Interpretation Code 50-100 re3D Cholesterol in LDL [Mass/Vol] 162.0 mg/dL Invalid Interpretation Code 0-130 re3D Triglyceride [Mass/Vol] 108.0 mg/dL Invalid Interpretation Code 30-150 re3D Laboratory - Urinalysison Glucose Test strip (U) [Mass/Vol] Negative Invalid Interpretation Code negative [facility] Protein (U) [Mass/Vol] Negative Invalid Interpretation Code negative [facility] Metabolic Panelon 12-16-2013 ALT [Catalytic activity/Vol] 15.0 U/L Invalid Interpretation Code 0-50 re3D Glucose [Mass/Vol] 94.0 mg/dL Invalid Interpretation Code 80-117 re3D HbA1c (Bld) [Mass fraction] 6.50 % Invalid Interpretation Code 4.3-6.3 [facility] Otheron 12-16-2013 Albumin (U) [Mass/Vol] < 12.00 Invalid Interpretation Code < 4.0-17.0 re3D Cholesterol in VLDL [Mass/Vol] 22.0 mg/dL Invalid Interpretation Code 0-39 re3D Cholesterol.total/Cho lesterol in HDL [Mass ratio] 4 {ratio} Invalid Interpretation Code re3D Glucose Test strip (U) [Mass/Vol] Negative negative [facility] pH (U) 6.0 [pH] Invalid Interpretation Code 4.5-7.8 re3D 140.0 mg/dL Invalid Interpretation Code [facility] See Above Invalid Interpretation Code 0-0 re3D 15.0 U/L 0-50 re3D Thyroidon 12-16-2013 T4 [Mass/Vol] 7.56 ug/dL Invalid Interpretation Code 5.00-12.00 [facility] TSH Qn 0.49 m[IU]/L Invalid Interpretation Code 0.50-4.00 [facility] Urinalysison 12-16-2013 Creatinine (U) [Mass/Vol] 162.70 mg/dL Invalid Interpretation Code Not Estab. mg dL re3D Protein (U) [Mass/Vol] Negative negative [facility] - Urinalysison Glucose Test strip (U) [Mass/Vol] Negative Invalid Interpretation Code negative [facility] Protein (U) [Mass/Vol] Negative Invalid Interpretation Code negative [facility] Metabolic Panelon 12-02-2013 Glucose [Mass/Vol] 108.0 mg/dL Invalid Interpretation Code 80-117 re3D Otheron 12-02-2013 C peptide [Mass/Vol] <0.0 Invalid Interpretation Code 1.1-4.4 re3D Glucose Test strip (U) [Mass/Vol] Negative negative re3D Glutamate decarboxylase 65 Ab Qn (S) 96.7 Invalid Interpretation Code 0.0-1.5 re3D pH (U) 7.0 [pH] Invalid Interpretation Code 4.5-7.8 re3D See Above Invalid Interpretation Code 0-0 re3D Urinalysison 12-02-2013 Protein (U) [Mass/Vol] Negative negative re[facility] 03-21-2013 Cholesterol [Mass/Vol] 201.0 mg/dL Invalid Interpretation Code 0-200 re3D Cholesterol in HDL [Mass/Vol] 74.0 mg/dL Invalid Interpretation Code 50-100 re3D Cholesterol in LDL [Mass/Vol] 108.0 mg/dL Invalid Interpretation Code 0-130 re3D Triglyceride [Mass/Vol] 93.0 mg/dL Invalid Interpretation Code 30-150 re[facility]D Laboratory - Urinalysison Glucose Test strip (U) [Mass/Vol] Negative Invalid Interpretation Code negative re3D Protein (U) [Mass/Vol] Negative Invalid Interpretation Code negative [facility] Metabolic Panelon 03-21-2013 ALT [Catalytic activity/Vol] 28.0 U/L Invalid Interpretation Code 0-50 re3D Glucose [Mass/Vol] 134.0 mg/dL Invalid Interpretation Code 80-117 re3D HbA1c (Bld) [Mass fraction] 6.20 % Invalid Interpretation Code 4.3-6.3 re3D Otheron 03-21-2013 Albumin (U) [Mass/Vol] < 12.00 Invalid Interpretation Code < 4.0-17.0 re3D Cholesterol in VLDL [Mass/Vol] 19.0 mg/dL Invalid Interpretation Code 0-39 re3D Cholesterol.total/Cho lesterol in HDL [Mass ratio] 3 {ratio} Invalid Interpretation Code re3D Glucose Test strip (U) [Mass/Vol] Negative negative [facility]D pH (U) 7.5 [pH] Invalid Interpretation Code 4.5-7.8 re3D See Above Invalid Interpretation Code 0-0 re3D 131.0 mg/dL Invalid Interpretation Code re3D 28.0 U/L 0-50 re3D Thyroidon 03-21-2013 T4 [Mass/Vol] 9.50 ug/dL Invalid Interpretation Code 5.00-12.00 re3D TSH Qn 0.87 m[IU]/L Invalid Interpretation Code 0.50-4.00 re3D Urinalysison 03-21-2013 Creatinine (U) [Mass/Vol] 74.0 mg/dL Invalid Interpretation Code Not Estab. mg dL re3D Protein (U) [Mass/Vol] Negative negative re3D Vital Signs Date Time Vital Sign Value Performing Clinician Facility 12-10-2023 13:30-040 Body height 149.86 cm [facility] 12-10-2023 13:30-0400 Body mass index (BMI) [Ratio] 32.7 kg/m2 [facility] 12-10-2023 13:30040 Body weight 73.48 kg [facility] 12-10-2023 13:30-0400 Diastolic blood pressure 78 mm[Hg] [facility] 12-10-2023 13:30-040 Heart rate 67 /min [facility] 12-10-2023 13:30-0400 SaO2% (BldA) [Mass fraction] 98 % [facility] 12-10-2023 13:30-0400 Systolic blood pressure 124 mm[Hg] [facility] 08-02-2023 10:31-0500 Body height 153.67 cm Patrice Zenamins 08-02-2023 10:31-0500 Body mass index (BMI) [Ratio] 30.35 kg/m2 Patrice Zenamins 08-02-2023 10:31-0500 Body surface area Derived from formula 1.75 m2 [facility]er 08-02-2023 10:31-0500 Body weight 71.67 kg [facility]riceNetworker 08-02-2023 10:31-0500 Diastolic blood pressure 80 mm[Hg] Patrice Zenamins 08-02-2023 10:31-0500 Heart rate 74 /min [facility]riceNetworker 08-02-2023 10:31-0500 Systolic blood pressure 142 mm[Hg] Lo[facility] 06-26-2023 13:30-0500 Body height 149.86 cm DO Paulette Voss Work Phone: [facility] 06-26-2023 13:30-0500 Body weight 71.39 kg DO Paulette Voss Work Phone: [facility] 06-26-2023 13:30-0500 Diastolic blood pressure 72 mm[Hg] DO Paulette Voss Work Phone: [facility] 06-26-2023 13:30-0500 Systolic blood pressure 132 mm[Hg] DO Paulette Voss Work Phone: [facility] 06-13-2023 13:00-0500 Body height 149.86 cm Gloria Mooney Other [facility] 06-13-2023 13:00-0500 Body mass index (BMI) [Ratio] 31.71 kg/m2 Gloria Mooney Other [facility] Other 06-13-2023 13:00-0500 Body weight 71.22 kg Gloria Mooney Other [facility] [employer] Other 06-13-2023 13:00-0500 Body weight 71.21 kg DO Paulette Voss Work Phone: [facility] 06-13-2023 13:00-0500 Diastolic blood pressure 70 mm[Hg] Gloria Mooney Other [facility] 06-13-2023 13:00-0500 SaO2% (BldA) [Mass fraction] 97 % Gloria Mooney Other [facility] [employer] Other 06-13-2023 13:00-0500 Systolic blood pressure 140 mm[Hg] Gloria Mooney Other [facility] 05-02-2023 10:16-0400 Body weight 70.76 kg [facility]riceNetworker 05-02-2023 10:16-0400 Diastolic blood pressure 70 mm[Hg] Patrice Zenamins 05-02-2023 10:16-0400 Heart rate 68 /min PatriceNetworker 05-02-2023 10:16-0400 Systolic blood pressure 110 mm[Hg] [facility]riceNetworker 01-30-2023 09:43-0400 Body weight 71.67 kg Patrice Zenamins 01-30-2023 09:43-0400 Diastolic blood pressure 70 mm[Hg] Patrice Choudh[employer]Neoconix 01-30-2023 09:43-0400 Heart rate 72 /min Patrice Zenamins 01-30-2023 09:43-0400 Systolic blood pressure 122 mm[Hg] Patrice Zenamins 10-31-2022 10:21-0400 Body height 151.64 cm Bebeto [employer] 10-31-2022 10:21-0400 Body mass index (BMI) [Ratio] 30.58 kg/m2 Bebeto to [employer] 10-31-2022 10:21-0400 Body surface area Derived from formula 1.72 m2 Bebeto to [employer]enc[employer] 10-31-2022 10:21-0400 Body weight 70.31 kg Bebeto [employer] 10-31-2022 10:21-0400 Body weight 0.1 {percentile} Bebeto [employer] 10-31-2022 10:21-0400 Diastolic blood pressure 78 mm[Hg] Bebeto [employer] 10-31-2022 10:21-0400 Heart rate 72 /min Bebeto [employer] 10-31-2022 10:21-0400 Systolic blood pressure 156 mm[Hg] Bebeto [employer] 09-11-2022 17:48-0500 Body weight 70.76 kg Bebeto [employer] 09-11-2022 17:48-0500 Diastolic blood pressure 72 mm[Hg] Bebeto [employer] 09-11-2022 17:48-0500 Heart rate 68 /min Bebeto [employer] 09-11-2022 17:48-0500 Systolic blood pressure 110 mm[Hg] Bebeto [employer] 08-02-2022 10:15-0500 Body height 151.64 cm Patrice Zenamins 08-02-2022 10:15-0500 Body mass index (BMI) [Ratio] 29.79 kg/m2 Patrice Zen[employer] 08-02-2022 10:15-0500 Body surface area Derived from formula 1.7 m2 Patrice [employer] 08-02-2022 10:15-0500 Body weight 68.49 kg Patrice [employer] 08-02-2022 10:15-0500 Body weight 0.1 {percentile} Patrice [employer] 08-02-2022 10:15-0500 Diastolic blood pressure 70 mm[Hg] Patrice [employer] 08-02-2022 10:15-0500 Heart rate 68 /min Patrice [employer] 08-02-2022 10:15-0500 Systolic blood pressure 120 mm[Hg] Patrice [employer] 07-10-2022 12:30-0500 Diastolic blood pressure 67 mm[Hg] Eyal Sanchez MD Work Phone: [employer] 07-10-2022 12:30-0500 Heart rate 72 /min Eyal Sanchez MD Work Phone: [facility] [employer] 07-10-2022 12:30-0500 Respiratory rate 18 /min Eyal Sanchez MD Work Phone: [employer] 07-10-2022 12:30-0500 SaO2% (BldA) [Mass fraction] 95 % Eyal Sanchez MD Work Phone: [employer] 07-10-2022 12:30-0500 Systolic blood pressure 140 mm[Hg] Eyal Sanchez MD Work Phone: [facility] [employer] 07-10-2022 12:05-0500 Body temperature 97.2 [degF] Eyal Sanchez MD Work Phone: [employer] 07-05-2022 11:08-0500 Body height 149.9 cm Eyal Sanchez MD Work Phone: [facility] [employer] 07-05-2022 11:08-0500 Body mass index (BMI) [Ratio] 29.08 kg/m2 Eyal Sanchez MD Work Phone: [employer] 07-05-2022 11:08-0500 Body weight 65.32 kg Eyal Sanchez MD Work Phone: [employer] 05-02-2022 10:33-0400 Body weight 68.49 kg [employer] 05-02-2022 10:33-0400 Diastolic blood pressure 78 mm[Hg] Patrice [employer] 05-02-2022 10:33-0400 Heart rate 74 /min [employer] 05-02-2022 10:33-0400 Systolic blood pressure 142 mm[Hg] Patrice Choudh[employer]Neoconix 01-30-2022 10:46-0400 Body height 149.86 cm Patrice Suarez re3D 01-30-2022 10:46-0400 Body mass index (BMI) [Ratio] 30.3 kg/m2 Patrice Ch[employer]Neocon[employer] 01-30-2022 10:46-0400 Body surface area Derived from formula 1.68 m2 Patrice [employer] 01-30-2022 10:46-0400 Body weight 68.04 kg Patrice Zenamins 01-30-2022 10:46-0400 Diastolic blood pressure 74 mm[Hg] Patrice Ch[employer]Neocon[employer] 01-30-2022 10:46-0400 Heart rate 66 /min Patrice Ch[employer]Ne[employer] 01-30-2022 10:46-0400 Systolic blood pressure 148 mm[Hg] Patrice [employer]Ne[employer] 10-31-2021 10:19-0400 Body weight 67.59 kg Nupur [employer] 10-31-2021 10:19-0400 Diastolic blood pressure 70 mm[Hg] Nupur [employer]Al[employer] 10-31-2021 10:19-0400 Heart rate 74 /min Nupur [employer] 10-31-2021 10:19-0400 Systolic blood pressure 140 mm[Hg] [employer] 08-02-2021 10:12-0500 Body height 153.67 cm [facility] 08-02-2021 10:12-0500 Body mass index (BMI) [Ratio] 28.62 kg/m2 [facility] 08-02-2021 10:12-0500 Body surface area Derived from formula 1.7 m2 [facility] 08-02-2021 10:12-0500 Body weight 67.59 kg [facility] 08-02-2021 10:12-0500 Diastolic blood pressure 70 mm[Hg] [facility] 08-02-2021 10:12-0500 Heart rate 84 /min [facility] 08-02-2021 10:12-0500 Systolic blood pressure 152 mm[Hg] [facility] 05-02-2021 11:21-0400 Body height 154.31 cm [facility] 05-02-2021 11:21-0400 Body mass index (BMI) [Ratio] 28.67 kg/m2 [facility] 05-02-2021 11:21-0400 Body surface area Derived from formula 1.71 m2 [facility] 05-02-2021 11:21-0400 Body weight 68.27 kg [facility] 05-02-2021 11:21-0400 Diastolic blood pressure 60 mm[Hg] [facility] 05-02-2021 11:21-0400 Heart rate 78 /min Nupur Lacey [facility] 05-02-2021 11:21-0400 Systolic blood pressure 134 mm[Hg] Nupur Lacey [facility] 02-02-2021 12:34-0400 Body height 154.31 cm Patrice [email or web address] 02-02-2021 12:34-0400 Body mass index (BMI) [Ratio] 29.34 kg/m2 Patrice Eagle Pharmaceuticalsnc[facility] 02-02-2021 12:34-0400 Body surface area Derived from formula 1.73 m2 Patrice Eagle Pharmaceuticalsnc[facility] 02-02-2021 12:34-0400 Body weight 69.85 kg Patrice [email or web address] 02-02-2021 12:34-0400 Diastolic blood pressure 66 mm[Hg] Patrice [email or web address] 02-02-2021 12:34-0400 Heart rate 72 /min Patrice [email or web address] 02-02-2021 12:34-0400 Systolic blood pressure 142 mm[Hg] Patrice Eagle Pharmaceuticalsnc[facility] 10-20-2020 12:15-0400 BMI (Body Mass Index) 29.53 kg/m2 Nupur Lacey [employer] 10-20-2020 12:15-0400 Body weight 70.31 kg Nupur RosenSealedSantosShopSquad/[employer] 10-20-2020 12:15-0400 BP Diastolic 66 mm[Hg] Nupur HID Global[facility] 10-20-2020 12:15-0400 BP Systolic 130 mm[Hg] Nupur SilasAltheRx Pharmaceuticals 10-20-2020 12:15-0400 BSA (Body Surface Area) 1.74 m2 [facility] 10-20-2020 12:15-0400 Height 154.31 cm [facility] 10-20-2020 12:15-0400 Pulse (Heart Rate) 72 /min [employer] 07-21-2020 12:13-0500 BMI (Body Mass Index) 28.96 kg/m2 [facility] 07-21-2020 12:13-0500 Body weight 68.95 kg [facility] 07-21-2020 12:13-0500 BP Diastolic 70 mm[Hg] [facility] 07-21-2020 12:13-0500 BP Systolic 152 mm[Hg] [facility] 07-21-2020 12:13-0500 BSA (Body Surface Area) 1.72 m2 [facility] 07-21-2020 12:13-0500 Height 154.31 cm [facility] 07-21-2020 12:13-0500 Pulse (Heart Rate) 74 /min [employer] 04-14-2020 16:25-0400 BMI (Body Mass Index) 29 kg/m2 [facility] 04-14-2020 16:25-0400 Body weight 69.63 [address] 04-14-2020 16:25-0400 BP Diastolic 79 mm[Hg] Nupur JavedShop[employer] 04-14-2020 16:25-0400 BP Systolic 151 mm[Hg] Nupur Lacey SantosShopS[employer] 04-14-2020 16:25-0400 BSA (Body Surface Area) 1.73 m2 Nupur SecondLeapsarah [facility]Sec[facility] 04-14-2020 16:25-0400 Height 154.94 cm Nupur Lacey [facility] 04-14-2020 16:25-0400 Pulse (Heart Rate) 76 /min Nupur JavedGeofusion [facility] 01-14-2020 15:09-0400 BMI (Body Mass Index) 30.14 kg/m2 Patrice [facility] 01-14-2020 15:09-0400 Body Temperature 98 [degF] Patrice [email or web address] [place] [facility] 01-14-2020 15:09-0400 Body weight 72.35 kg Patrice Eagle Pharm[facility]nc[facility] 01-14-2020 15:09-0400 BP Diastolic 76 mm[Hg] Patrice [employer] 01-14-2020 15:09-0400 BP Systolic 124 mm[Hg] Patrice [employer] 01-14-2020 15:09-0400 BSA (Body Surface Area) 1.76 m2 Patrice [employer] 01-14-2020 15:09-0400 Height 154.94 cm Patrice FontaineImage [facility] Medical 01-14-2020 15:09-0400 Pulse (Heart Rate) 72 /min Patrice Santos [employer] 08-21-2019 10:50-0500 BMI (Body Mass Index) 31.18 kg/m2 Nupur Lacey [facility] 08-21-2019 10:50-0500 Body weight 74.84 kg Nupur [employer] 08-21-2019 10:50-0500 BP Diastolic 70 mm[Hg] Nupur [employer] 08-21-2019 10:50-0500 BP Systolic 160 mm[Hg] Nupur [employer] 08-21-2019 10:50-0500 BSA (Body Surface Area) 1.79 m2 Nupur [employer] 08-21-2019 10:50-0500 Height 154.94 cm Nupur [employer] 08-21-2019 10:50-0500 Pulse (Heart Rate) 80 /min Nupur Santos [employer] 05-22-2019 10:37-0500 BMI (Body Mass Index) 30.48 kg/m2 Nupur [employer] 05-22-2019 10:37-0500 Body weight 73.17 kg [employer]ur[employer] 05-22-2019 10:37-0500 BP Diastolic 68 mm[Hg] [employer] 05-22-2019 10:37-0500 BP Systolic 110 mm[Hg] Nupur Deepthi re3D 05-22-2019 10:37-0500 BSA (Body Surface Area) 1.77 m2 Nupur Deepthi [employer] 05-22-2019 10:37-0500 Height 154.94 cm [employer] 05-22-2019 10:37-0500 Pulse (Heart Rate) 70 /min Nupur Deepthi [employer] 02-12-2019 10:07-0400 BMI (Body Mass Index) 30.42 kg/m2 [facility] 02-12-2019 10:07-0400 Body weight 73.03 kg Nupur [employer] 02-12-2019 10:07-0400 BP Diastolic 64 mm[Hg] [facility] 02-12-2019 10:07-0400 BP Systolic 138 mm[Hg] [employer] 02-12-2019 10:07-0400 BSA (Body Surface Area) 1.77 m2 [employer] 02-12-2019 10:07-0400 Height 154.94 cm [facility] 02-12-2019 10:07-0400 Pulse (Heart Rate) 78 /min Nupur Deepthi [employer] 11-28-2018 10:21-0400 BMI (Body Mass Index) 30.48 kg/m2 [facility] 11-28-2018 10:21-0400 Body weight 73.17 kg N[employer]ur[employer]tory 11-28-2018 10:21-0400 BP Diastolic 74 mm[Hg] NupurHealthcareMagic Inc 11-28-2018 10:21-0400 BP Systolic 122 mm[Hg] NupurHealthcareMagic Inc 11-28-2018 10:21-0400 BSA (Body Surface Area) 1.77 m2 [facility] 11-28-2018 10:210400 Height 154.94 cm [facility] 11-28-2018 10:21-0400 Pulse (Heart Rate) 80 /min [employer] 08-29-2018 10:16-0500 BMI (Body Mass Index) 30.23 kg/m2 [facility] 08-29-2018 10:16-0500 Body weight 72.58 kg N[employer]ur[employer] 08-29-2018 10:16-0500 BP Diastolic 60 mm[Hg] [employer] 08-29-2018 10:16-0500 BP Systolic 132 mm[Hg] NupurHealthcareMagic Inc 08-29-2018 10:16-0500 BSA (Body Surface Area) 1.77 m2 [facility] 08-29-2018 10:16-0500 Height 154.94 cm [facility] 08-29-2018 10:16-0500 Pulse (Heart Rate) 80 /min Nupur [employer] 05-30-2018 11:52-0500 BMI (Body Mass Index) 31.02 kg/m2 [employer]ur[employer] 05-30-2018 11:52-0500 Body weight 73.26 kg N[employer]urZtory 05-30-2018 11:52-0500 BP Diastolic 72 mm[Hg] [facility] 05-30-2018 11:52-0500 BP Systolic 144 mm[Hg] [facility] 05-30-2018 11:52-0500 BSA (Body Surface Area) 1.77 m2 [facility] 05-30-2018 11:52-0500 Height 153.67 cm [facility] 05-30-2018 11:52-0500 Pulse (Heart Rate) 68 /min [facility]urPanacela Labs 02-28-2018 11:42-0400 BMI (Body Mass Index) 31.89 kg/m2 [facility] 02-28-2018 11:42-0400 Body weight 75.3 kg [facility] 02-28-2018 11:42-0400 BP Diastolic 76 mm[Hg] [facility] 02-28-2018 11:42-0400 BP Systolic 134 mm[Hg] [facility] 02-28-2018 11:42-0400 BSA (Body Surface Area) 1.79 m2 [facility] 02-28-2018 11:[id number] Height 153.67 cm Nupur Javed[employer] 02-28-2018 11:42-0400 Pulse (Heart Rate) 80 /min Nupur JavedC[employer] 11-29-2017 11:28-0400 BP Diastolic 74 mm[Hg] Nupurbest Lacey re3D 11-29-2017 11:28-0400 BP Systolic 132 mm[Hg] Nupur Lacey re3D 11-29-2017 11:280400 Pulse (Heart Rate) 84 /min Nupur JavedC[employer] 08-30-2017 10:29-0500 BMI (Body Mass Index) 31.69 kg/m2 Nupur Lacey re3D 08-30-2017 10:29-0500 Body weight 74.84 kg Nupur Lacey re3D 08-30-2017 10:29-0500 BP Diastolic 62 mm[Hg] Nupurmary anne RosenAltheRx Pharm[employer] 08-30-2017 10:29-0500 BP Systolic 136 mm[Hg] Nupur Lacey re3D 08-30-2017 10:29-0500 BSA (Body Surface Area) 1.79 m2 [employer] 08-30-2017 10:29-0500 Height 153.67 cm Nupur [employer] 08-30-2017 10:29-0500 Pulse (Heart Rate) 78 /min Nupur FontaineEmulation and Verification Engineering 05-29-2017 10:190500 BMI (Body Mass Index) 31.24 kg/m2 [facility] 05-29-2017 10:0500 Body weight 74.39 kg Nupur SecondLeapsarah [employer] 05-29-2017 10:19-0500 BP Diastolic 72 mm[Hg] [facility] 05-29-2017 10:19-0500 BP Systolic 138 mm[Hg] [facility] 05-29-2017 10:19-0500 BSA (Body Surface Area) 1.79 m2 [facility] 05-29-2017 10:0500 Height 154.31 cm [facility] 05-29-2017 10:19-0500 Pulse (Heart Rate) 86 /min Appfol[employer]arah Santos [facility] 3D FUTURE VISION II 03-01-2017 10:13-0400 BMI (Body Mass Index) 31.15 kg/m2 NupurKardiumsarah [employer] 03-01-2017 10:130400 Body weight 74.16 kg [facility] 03-01-2017 10:13-0400 BP Diastolic 74 mm[Hg] [facility] 03-01-2017 10:13-0400 BP Systolic 146 mm[Hg] [facility] 03-01-2017 10:13-0400 BSA (Body Surface Area) 1.78 m2 [facility] 03-01-2017 10:130400 Height 154.31 cm Nupur Lacey re3D 03-01-2017 10:130400 Pulse (Heart Rate) 72 /min Nupur Santos [employer] 11-16-2016 11:18-0400 BP Diastolic 76 mm[Hg] Nupur Lacey re3[facility] 11-16-2016 11:18-0400 BP Systolic 142 mm[Hg] Nupur RosenAltheRx [employer] 11-16-2016 10:17-0400 BMI (Body Mass Index) 31.15 kg/m2 Nupur Lacey re3D 11-16-2016 10:17-0400 Body weight 74.16 kg Nupur Lacey re3D 11-16-2016 10:17-0400 BP Diastolic 72 mm[Hg] Nupur Lacey re3D 11-16-2016 10:17-0400 BP Systolic 152 mm[Hg] Nupurmary anne [employer] 11-16-2016 10:17-0400 BSA (Body Surface Area) 1.78 m2 Nupur Lacey re3[facility] 11-16-2016 10:170400 Height 154.31 cm Nupur Lacey re3D 11-16-2016 10:17-0400 Pulse (Heart Rate) 72 /min Nupur J[employer] 08-17-2016 11:49-0500 BMI (Body Mass Index) 30.84 kg/m2 [employer] 08-17-2016 11:49-0500 Body weight 74.53 kg Nupur Lacey re3D 08-17-2016 11:49-0500 BP Diastolic 60 mm[Hg] NupurKardiumsarah re3D 08-17-2016 11:49-0500 BP Systolic 128 mm[Hg] [facility]ur[facility] 08-17-2016 11:49-0500 BSA (Body Surface Area) 1.79 m2 [facility] 08-17-2016 11:49-0500 Height 155.45 cm [facility] 08-17-2016 11:49-0500 Pulse (Heart Rate) 70 /min [facility]nchard [facility] 3D FUTURE VISION II 05-11-2016 11:22-0400 BMI (Body Mass Index) 30.3 kg/m2 [facility] 05-11-2016 11:22-0400 Body weight 73.94 kg NupurZtory 05-11-2016 11:22-0400 BP Diastolic 70 mm[Hg] [facility] 05-11-2016 11:22-0400 BP Systolic 144 mm[Hg] [facility] 05-11-2016 11:22-0400 BSA (Body Surface Area) 1.79 m2 [facility] 05-11-2016 11:22-0400 Height 156.21 cm [facility] 05-11-2016 11:22-0400 Pulse (Heart Rate) 68 /min Nupur J[employer] 02-10-2016 10:38-0400 BMI (Body Mass Index) 29.18 kg/m2 Nupur Lacey [facility] 02-10-2016 10:38-0400 Body weight 71.22 kg NupurZtory 02-10-2016 10:38-0400 BP Diastolic 70 mm[Hg] [facility] 02-10-2016 10:38-0400 BP Systolic 140 mm[Hg] [facility] 02-10-2016 10:38-0400 BSA (Body Surface Area) 1.76 m2 [facility] 02-10-2016 10:38-0400 Height 156.21 cm [facility] 02-10-2016 10:38-0400 Pulse (Heart Rate) 78 /min Nupur Santos [employer] 11-11-2015 10:40-0400 BMI (Body Mass Index) 29.74 kg/m2 [facility] 11-11-2015 10:40-0400 Body weight 72.58 kg [facility] 11-11-2015 10:40-0400 BP Diastolic 70 mm[Hg] [facility] 11-11-2015 10:40-0400 BP Systolic 120 mm[Hg] [facility] 11-11-2015 10:40-0400 BSA (Body Surface Area) 1.77 m2 [facility] 11-11-2015 10:40-0400 Height 156.21 cm [facility] 11-11-2015 10:40-0400 Pulse (Heart Rate) 80 /min [employer] Deepthi [employer] 08-05-2015 10:31-0500 BMI (Body Mass Index) 30.17 kg/m2 [facility] 08-05-2015 10:31-0500 Body weight 73.03 kg [facility] 08-05-2015 10:31-0500 BP Diastolic 74 mm[Hg] [facility] 08-05-2015 10:31-0500 BP Systolic 124 mm[Hg] [facility] 08-05-2015 10:31-0500 BSA (Body Surface Area) 1.78 m2 [facility] 08-05-2015 10:31-0500 Height 155.57 cm [facility] 08-05-2015 10:31-0500 Pulse (Heart Rate) 72 /min Nupur Deepthi [employer] 04-22-2015 10:38-0400 BMI (Body Mass Index) 29.72 kg/m2 [facility] 04-22-2015 10:38-0400 Body weight 73.71 kg [facility] 04-22-2015 10:38-0400 BP Diastolic 72 mm[Hg] [facility] 04-22-2015 10:38-0400 BP Systolic 156 mm[Hg] Nupurmary anne [employer]Al[employer] 04-22-2015 10:38-0400 BSA (Body Surface Area) 1.8 m2 [facility] 04-22-2015 10:38-0400 Height 157.48 cm [facility] 04-22-2015 10:38-0400 Pulse (Heart Rate) 80 /min [employer] 01-20-2015 10:08-0400 BMI (Body Mass Index) 30.45 kg/m2 [facility] 01-20-2015 10:08-0400 Body weight 75.52 kg [facility] 01-20-2015 10:08-0400 BP Diastolic 66 mm[Hg] [facility] 01-20-2015 10:08-0400 BP Systolic 126 mm[Hg] [facility] 01-20-2015 10:08-0400 BSA (Body Surface Area) 1.82 m2 [facility] 01-20-2015 10:08-0400 Height 157.48 cm [facility] 01-20-2015 10:08-0400 Pulse (Heart Rate) 74 /min [employer] 09-22-2014 10:42-0400 BMI (Body Mass Index) 32.19 kg/m2 [facility] 09-22-2014 10:42-0400 Body weight 79.83 kg Nupur Santos Taomee 09-22-2014 10:42-0400 BP Diastolic 68 mm[Hg] Nupur Santos Taomee 09-22-2014 10:42-0400 BP Systolic 124 mm[Hg] Nupur Lacey [employer] 09-22-2014 10:42-0400 BSA (Body Surface Area) 1.87 m2 Nupur SecondLeapsarah SantosShop[employer] 09-22-2014 10:42-0400 Height 157.48 cm Nupur SecondLeapsarah Santos[employer] 09-22-2014 10:42-0400 Pulse (Heart Rate) 74 /min Nupur Santos [facility] 3D FUTURE VISION II 06-16-2014 10:46-0500 BMI (Body Mass Index) 31.82 kg/m2 Nupur SecondLeapsarah Santos[employer] 06-16-2014 10:46-0500 Body weight 78.93 kg Nupur FontainencShopSquad/[employer] 06-16-2014 10:46-0500 BP Diastolic 78 mm[Hg] Nupur Lacey [employer] 06-16-2014 10:46-0500 BP Systolic 150 mm[Hg] Nupur Lacey Santos Taomee 06-16-2014 10:46-0500 BSA (Body Surface Area) 1.86 m2 Nupur SecondLeapsarah Santos[employer] 06-16-2014 10:46-0500 Height 157.48 cm AnSynncShopSquad[employer] 06-16-2014 10:46-0500 Pulse (Heart Rate) 84 /min Nupur J[employer] 03-17-2014 11:58-0400 BMI (Body Mass Index) 31.92 kg/m2 Nupur [employer] 03-17-2014 11:58-0400 Body weight 79.15 kg Nupur [employer] 03-17-2014 11:58-0400 BP Diastolic 66 mm[Hg] [employer] 03-17-2014 11:58-0400 BP Systolic 112 mm[Hg] Nupur [employer] 03-17-2014 11:58-0400 BSA (Body Surface Area) 1.86 m2 [facility] 03-17-2014 11:58-0400 Height 157.48 cm NupruZtory 03-17-2014 11:58-0400 Pulse (Heart Rate) 76 /min Nupur J[employer] 12-16-2013 12:18-0400 BMI (Body Mass Index) 31.46 kg/m2 N[employer]ur[employer]tory 12-16-2013 12:18-0400 Body weight 78.02 kg [facility] 12-16-2013 12:18-0400 BP Diastolic 86 mm[Hg] [facility] 12-16-2013 12:18-0400 BP Systolic 126 mm[Hg] [facility] 12-16-2013 12:18-0400 BSA (Body Surface Area) 1.85 m2 Nupur JavedShop[employer] 12-16-2013 12:18040 Height 157.48 cm Nupur JavedShop[employer] 12-16-2013 12:18-0400 Pulse (Heart Rate) 68 /min Nupur Santos [employer] 03-21-2013 10:04-0400 Body weight 77.79 kg Nupur [employer] 03-21-2013 10:04-0400 BP Diastolic 70 mm[Hg] [facility] 03-21-2013 10:04-0400 BP Systolic 150 mm[Hg] Nupur Lacey [employer] 03-21-2013 10:04-0400 Pulse (Heart Rate) 84 /min Nupur [facility] 11-15-2012 10:18-0400 Body Temperature 97.8 [degF] Nupur Santos Jott 11-15-2012 10:18-0400 Body weight 76.66 kg Nupur [employer] 11-15-2012 10:18-0400 BP Diastolic 70 mm[Hg] Nupur [employer] 11-15-2012 10:18-0400 BP Systolic 138 mm[Hg] Nupur Lacey [employer] 11-15-2012 10:18-0400 Pulse (Heart Rate) 68 /min Nupur [facility] Encounters Encounter Date Encounter Type Care Provider Facility Start: 12-10-2023 End: 12-10-2023 ambulatory [facility] Work Phone: Start: 12-10-2023 End: 12-10-2023 Patient encounter procedure [facility] Work Phone: Start: 09-12-2023 Telephone encounter Juanita Campoverde CMA [facility] Start: 09-05-2023 Orders Only Ynes Bermudez RMA [facility] Comment on above: Diarrhea, unspecifie d type; Colon cancer metastasized to liver ([facility]) Start: 09-04-2023 End: 09-04-2023 ambulatory Paulette Fischernilson Facility:[facility] Start: 09-04-2023 End: 09-04-2023 ambulatory DO Paulette Voss Work Phone: [facility] Work Phone: Start: 09-04-2023 End: 09-04-2023 Departed Referred DO Paulette Voss Work Phone: [facility] Start: 08-16-2023 End: 08-17-2023 ambulatory [facility] Start: 08-15-2023 End: 08-15-2023 ambulatory [facility] Start: 08-02-2023 Medicare Lab Patrice Deluca clifton Other [facility] Start: 08-02-2023 Office outpatient vi sit 25 minutes Nupur Lacey Other [facility] Office Start: 06-26-2023 End: 06-26-2023 Patient encounter procedure DO Paulette Voss Work Phone: [facility] [facility] Work Phone: Start: 06-20-2023 End: 06-20-2023 ambulatory Gloria Mooney Other [facility] Other Start: 06-20-2023 Nursing evaluation o f patient and report Gloria Villaseñorrbacher [facility] Start: 06-13-2023 End: 06-13-2023 ambulatory Gloria Villaseñorsanket Other [facility] Other Start: 06-13-2023 Office outpatient ne w 30 minutes Gloria Carlossandeep [facility] Start: 06-13-2023 End: 06-13-2023 Patient encounter procedure DO Paulette Voss Work Phone: [facility] Physician [facility] Work Phone: Start: 05-02-2023 Medicare Lab Patrice L Schroe [place] Other [facility] Start: 05-02-2023 Office outpatient vi sit 25 minutes Nupur S Schworm Other [facility] Start: 02-27-2023 Office Services Bebeto P March and Other [facility] Start: 01-30-2023 Medicare Lab Patrice L Schroe [place] Other [facility] Start: 01-30-2023 Office outpatient vi sit 25 minutes Nupur S Schworm Other [facility] Start: 11-27-2022 Office Services Bebeto P March and Other [facility] Start: 11-17-2022 End: 11-17-[address] CHINEDU SEVILLA Facility: Start: 10-31-2022 Medicare Lab Patrice L Schroe [place] Other [facility] Start: 10-31-2022 Office outpatient vi sit 25 minutes Nupur S Schworm Other [facility] Start: 09-26-2022 Office Services Bebeto P March and Other [facility] Start: 09-11-2022 Office Services Bebeto P March and Other [facility] Start: 09-11-2022 Office outpatient ne w 30 minutes Bebeto P Ginger Other [facility] Start: 08-02-2022 Medicare Lab Patrice L Schroe [place] Other [facility] Start: 08-02-2022 Office outpatient vi sit 25 minutes Nupur S Schworm Other [facility] Start: 07-10-2022 End: 07-10-2022 [facility] Start: 07-10-2022 End: 07-10-2022 Subsequent hospital visit by physician Eyal Sanchez MD Work Phone: [facility] Start: 05-02-2022 Medicare Lab Patrice L Funmie [place] Other [facility] Start: 05-02-2022 Office outpatient vi sit 25 minutes Nupur S Schworm Other [facility] Start: 01-30-2022 Medicare Lab Patrice L Funmie [place] Other [facility] Start: 01-30-2022 Office outpatient vi sit 25 minutes Nupur S Schworm Other [facility] Start: 10-31-2021 Medicare Lab Nupur S Schwor m Other [facility] Start: 10-31-2021 Office outpatient vi sit 25 minutes Nupur S Schworm Other [facility] Start: 08-02-2021 Medicare Lab Nupur S Schwor m Other [facility] Start: 08-02-2021 Office outpatient vi sit 25 minutes Nupur S Schworm Other [facility] Start: 05-02-2021 Medicare Lab Patrice L Schroe [place] Other [facility] Start: 05-02-2021 Office outpatient vi sit 25 minutes Nupur S Schworm Other [facility] Start: 02-02-2021 Medicare Lab Patrice L Schroe [place] Other [facility] Start: 02-02-2021 Office outpatient vi sit 25 minutes Nupur S Schworm Other [facility] Start: 10-20-2020 Medicare Lab Nupur S Schwor m Other [facility] Start: 10-20-2020 Office outpatient vi sit 25 minutes Nupur S Schworm Other [facility] Start: 08-10-2020 Office Services Luciana carter Other [facility] Start: 07-21-2020 Medicare Lab Nupur S Schwor m Other [facility] Start: 07-21-2020 Office outpatient vi sit 25 minutes Nupur S Schworm Other [facility] Start: 04-14-2020 Medicare Lab Patriec Schwartz Funmiduane [place] Other [facility] Start: 04-14-2020 End: 04-14-2020 Office Services Nupur S Schworm Other [facility] Start: 04-14-2020 Office outpatient vi sit 25 minutes Nupur S Schworm Other [facility] Start: 01-14-2020 Medicare Lab Patrice Schwartz Funmiduane clif[place] Other [facility] Start: 01-14-2020 Office outpatient vi sit 25 minutes Nupur S Schworm Other [facility] Start: 10-02-2019 Office Services Luciana carter Other [facility] Start: 08-21-2019 Medicare Lab Nupur S Schwor m Other [facility] Start: 08-21-2019 Foot exam performed Lupe gibson Other [facility] Start: 08-21-2019 Office outpatient vi sit 25 minutes Lupe Mccabe Other [facility] Start: 05-22-2019 Medicare Lab Nupur S Schwor m Other [facility] Start: 05-22-2019 Office outpatient vi sit 25 minutes Nupur S Schworm Other [facility] Office Start: 02-12-2019 Medicare Lab Nupur S Schwor m Other [facility] Start: 02-12-2019 Office outpatient vi sit 25 minutes Nupur S Schworm Other [facility] Office Start: 11-28-2018 Lab Nupur S Schwor m Other [facility] Office Start: 11-28-2018 Office outpatient vi sit 25 minutes Nupur S Schworm Other [facility] Office Start: 08-29-2018 Office Services Patrice L Schroe clifton Other [facility] Office Start: 08-29-2018 Office outpatient vi sit 25 minutes Nupur S Schworm Other [facility] Office Start: 05-30-2018 Office Services Patrice L Schroe clifton Other [facility] Office Start: 05-30-2018 Office outpatient vi sit 15 minutes Nupru S Schworm Other [facility] Office Start: 02-28-2018 Office Services Patrice L Schroe clifton Other [facility] Office Start: 02-28-2018 Office outpatient vi sit 25 minutes Nupur S Schworm Other [facility] Office Start: 11-29-2017 Office outpatient vi sit 25 minutes Nupur S Schworm Other [facility] Office Start: 11-29-2017 Office Services Nupur S Schwor m Other [facility] Office Start: 08-30-2017 Office Services Nupur S Schwor m Other [facility] Office Start: 08-30-2017 Office outpatient vi sit 25 minutes Patrice L Suarez Other [facility] Office Start: 05-29-2017 Office Services Nupur S Schwor m Other [facility] Office Start: 05-29-2017 Office outpatient vi sit 25 minutes Patrice L Suarez Other [facility] Office Start: 03-01-2017 Office outpatient vi sit 25 minutes Nupur S Schworm Other [facility] Office Start: 03-01-2017 Lab Nupur S Schwor m Other [facility] Office Start: 11-16-2016 Office outpatient ne w 20 minutes Farhat Edouard Other [facility] Office Start: 11-16-2016 Lab Nupur S Schwor m Other [facility] Office Start: 11-16-2016 Office outpatient vi sit 25 minutes Nupur S Schworm Other [facility] Office Start: 08-17-2016 Lab Patrice Schwartz Sandrine lazo Other [facility] Office Start: 08-17-2016 End: 08-17-2016 Office Services Nupur S Schworm Other [facility] Office Start: 08-17-2016 Office outpatient vi sit 25 minutes Nupur S Schworm Other [facility] Office Start: 05-11-2016 End: 05-11-2016 Office Services Nupur S Schworm Other [facility] Office Start: 05-11-2016 Office outpatient vi sit 25 minutes Nupur S Schworm Other [facility] Office Start: 02-10-2016 Lab Nupur S Schwor m Other [facility] Office Start: 02-10-2016 Office outpatient vi sit 25 minutes Nupur S Schworm Other [facility] Office Start: 11-11-2015 Lab Nupur S Schwor m Other [facility] Office Start: 11-11-2015 Office outpatient vi sit 25 minutes Nupur S Schworm Other [facility] Office Start: 08-05-2015 Office outpatient vi sit 25 minutes Nupur S Schworm Other [facility] Office Start: 08-05-2015 Office Services Nupur S Schwor m Other [facility] Office Start: 04-22-2015 Lab Nupur S Schwor m Other [facility] Start: 04-22-2015 Office outpatient vi sit 25 minutes Nupur S Schworm Other [facility] Start: 01-20-2015 Lab Patrice L Schroe cl[place] Other [facility] Start: 01-20-2015 Office outpatient vi sit 25 minutes Nupur S Schworm Other [facility] Office Start: 09-22-2014 Foot exam performed Patrice L Sc hroeder Other [facility] Start: 09-22-2014 Office outpatient vi sit 25 minutes Patrice L Suarez Other [facility] Office Start: 09-22-2014 Lab Patrice L Schroe clifton Other [facility] Office Start: 06-16-2014 Foot exam performed Patrice L Sc hroeder Other [facility] Office Start: 03-17-2014 Medicare Lab Patrice L Schroe clifton Other [facility] Start: 03-17-2014 Foot exam performed Patrice L Sc hroeder Other [facility] Office Start: 12-16-2013 Medicare Lab Patrice L Schroe clifton Other [facility] Start: 12-16-2013 Foot exam performed Patrice L Sc hroeder Other [facility] Office Start: 12-02-2013 Medicare Lab Patrice L Schroe cl[place] Other [facility] Start: 03-21-2013 End: 03-21-2013 Office Services Patrice L Suarez Other [facility] Office Start: 11-15-2012 End: 11-15-2012 Office Services Patrice L Suarez Other [facility] Office Start: 07-19-2012 Voided Visit Patrice L Schroe [place] Other [facility] Start: 07-19-2012 Office Services Patricesophia Deluca [place] Other [facility] Office Procedures Date Procedure Procedure Detail Performing Clinician Start: 09-04-2023 End: 09-04-2023 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 Phone: Start: 08-02-2023 Basic metabolic pane l calcium total Patricesophia ChoudharySuarez Start: 08-02-2023 Hemoglobin A1c measurement Patrice Suarez Start: 08-02-2023 MICROALBUMIN/Urine C reat Ratio Patrice Suarez Start: 08-02-2023 Thyroid stimulating hormone measurement Patricesophia ChoudharySuarez Start: 08-02-2023 Thyroxine measurement L eroy Suarez Start: 08-02-2023 Blood chemistry Patrice S chroeder Start: 08-02-2023 BS-Dip Patrice Schr oeder Start: 05-02-2023 Basic metabolic pane l calcium total Patricesophia ChoudharySuarez Start: 05-02-2023 Hemoglobin A1c measurement Patrice Suarez Start: 05-02-2023 Lipid panel Patrice Schr oeder Start: 05-02-2023 MICROALBUMIN/Urine C reat Ratio Patrice Suarez Start: 05-02-2023 Blood chemistry Patrice S chroeder Start: 05-02-2023 BS-Dip Patrice Schr oeder Start: 02-25-2023 Docrev cur meds by eli clin Bebeto Miles Start: 01-30-2023 Basic metabolic pane l calcium total Patricesophia ChoudharySuarez Start: 01-30-2023 Hemoglobin A1c measurement Patrice Suarez Start: 01-30-2023 MICROALBUMIN/Urine C reat Ratio Patrice Suarez Start: 01-30-2023 Blood chemistry Patrice S chroeder Start: 01-30-2023 BS-Dip Patrice Schr oeder Start: 11-25-2022 Docrev cur meds by sadia clin Bebeto Miles Start: 11-15-2022 Adult depression scr eening assessment Ynes Bermudez [facility]MA Start: 10-31-2022 Basic metabolic pane l calcium total Bebeto Miles Start: 10-31-2022 Docrev cur meds by sadia clin Bebeto Miles Start: 10-31-2022 Hemoglobin A1c measurement Bebeto Miles Start: 10-31-2022 Lipid panel Bebeto anderson Start: 10-31-2022 Thyroid stimulating hormone measurement Bebeto Ginger Start: 10-31-2022 Thyroxine measurement Princess klein Ginger Start: 10-31-2022 X-ray of left foot Hieu meeks Ginger Start: 10-31-2022 Blood chemistry Bebeto Ginger Start: 10-31-2022 BS-Dip Bebeto anderson Start: 09-25-2022 Docrev cur meds by eli clin Bebeto Ginger Start: 09-25-2022 X-ray of left foot Hieu meeks Ginger Start: 09-11-2022 Docrev cur meds by eli clin Bebeto Ginger Start: 09-11-2022 X-ray of left foot Hieu meeks Ginger Start: 08-02-2022 Alanine aminotransfe rase measurement Patrice Suarez Start: 08-02-2022 Basic metabolic pane l calcium total Patrice Suarez Start: 08-02-2022 Docrev cur meds by eli samia Suarez Start: 08-02-2022 Hemoglobin A1c measurement Patrice [...] use Eyal Sanchez MD Work Phone: Start: 05-21-2022 Diabetic retinal eye exam Ynes Bermudez RMA Start: 05-02-2022 Basic metabolic pane l calcium total Patrice Suarez Start: 05-02-2022 Docrev cur meds by elig clin Patrice Suarez Start: 05-02-2022 Glucose measurement by monitoring device Patrice Suarez Start: 05-02-2022 Hemoglobin A1c measurement Patricesophia Suarez Start: 05-02-2022 Lipid panel Patrice Schr oeder Start: 05-02-2022 MICROALBUMIN/Urine C reat Ratio Patricesophia Suarez Start: 05-02-2022 Blood chemistry Patrice S chroeder Start: 05-02-2022 BS-Dip Patrice Schr oeder Start: 01-30-2022 Basic metabolic pane l calcium total Patrice Suarez Start: 01-30-2022 Docrev cur meds by elig clin Patricesophia Suarez Start: 01-30-2022 Glucose measurement by monitoring device Patrice Suarez Start: 01-30-2022 Hemoglobin A1c measurement Patrice Suarez Start: 01-30-2022 Lipid panel Patrice Schr oeder Start: 01-30-2022 Blood chemistry Patrice S chroeder Start: 10-31-2021 Basic metabolic pane l calcium total Nupur Schworm Start: 10-31-2021 Docrev cur meds by elig clin Nupur Schworm Start: 10-31-2021 Glucose measurement by monitoring device Patricesophia Suarez Start: 10-31-2021 Hemoglobin A1c measurement Nupur [...] 08-02-2021 Glucose measurement by monitoring device Bebeto Miles Start: 08-02-2021 Hemoglobin A1c measurement Nupur Schworm [...] Patrice Suarez Start: 10-20-2020 Thyroxine measurement L eroy Suarez Start: 10-20-2020 BS-Dip Nupur Schw orm Start: 10-19-2020 Glucose quantitative blood xcpt reagent strip Nupur Schworm Start: 10-19-2020 Hemoglobin A1c measurement Patricesophia Suarez Start: 10-19-2020 Hemoglobin glycosylated a1c Nupur Schworm Start: 08-10-2020 Diab manage trn per indiv Nupur Schworm Start: 07-21-2020 Antibody; severe acu te respiratory syndrome Coronavirus 2 (SARS-cov-2) (Coronavirus disease [covid-19]) Nupur Schworm Start: 07-21-2020 Continuous glucose m onitoring analysis i&r Nupur Schworm Start: 07-21-2020 Doc meds verified w/pt or re Nupur Schworm Start: 07-21-2020 Glucose measurement by monitoring device Patrice Suarez Start: 07-21-2020 Basic metabolic pane l calcium [...] Suarez Start: 07-16-2020 Thyroxine measurement L wood Choudharyeder Start: 04-15-2020 Hemoglobin A1c measurement Patrice Suarez [...] Start: 11-20-2019 Assay of thyroxine total Patrice Suarez Start: 11-20-2019 Basic metabolic pane l calcium total Patrice Suarez Start: 11-20-2019 Hemoglobin A1c measurement Patrice Suarez Start: 11-20-2019 Hemoglobin glycosylated a1c Patrice Suarez Start: 11-20-2019 MICROALBUMIN/Urine C reat Ratio Patrice Suarez Start: 11-20-2019 Thyroid stimulating hormone measurement Patrice Suarez Start: 11-20-2019 Thyroxine measurement L ersophia Suarez Start: 10-05-2019 Diab manage trn per indiv Nupur Schworm Start: 08-22-2019 Basic metabolic pane l calcium total Nupur Schworm Start: 08-22-2019 Hemoglobin A1c measurement Patrice Suarez Start: 08-22-2019 Hemoglobin glycosylated a1c Nupur Schworm Start: 08-22-2019 Lipid panel Npuur Schw orm Start: 08-22-2019 Lipid panel Patrice Schr lmabertder Start: 08-21-2019 Diabetic foot examination Nupur Schworm [...] Schworm Start: 11-26-2018 Hemoglobin A1c measurement Patrice Suarez Start: 11-26-2018 Hemoglobin glycosylated a1c Nupur Schworm [...] Nupur Schworm Start: 08-29-2017 Hemoglobin A1c measurement Patrice Suarez Start: 08-29-2017 Hemoglobin glycosylated a1c Nupur [...] Schworm Start: 05-29-2017 Blood chemistry Patrice S escobaroeder Start: 05-29-2017 BS-Dip Nupur Schw orm Start: [...] Patrice Suarez Start: 08-11-2016 Thyroxine measurement L wood Suarez Start: 05-12-2016 Alanine aminotransfe rase measurement Patrice Choudharyeder Start: 05-12-2016 Glucose measurement, quantitative aPtrice Choudharyeder Start: 05-12-2016 Glucose quantitative blood xcpt reagent [...] Nupur Schworm Start: 04-22-2015 Hemoglobin A1c measurement Patrice Suarez Start: 04-22-2015 Hemoglobin glycosylated a1c Nupur Schworm Start: 04-22-2015 Thyroid stimulating hormone measurement Patrice Suarez Start: 04-22-2015 Thyroxine measurement L wood Suarez Start: 01-22-2015 Alanine aminotransfe rase measurement Patrice Suarez Start: 01-22-2015 Basic metabolic pane l calcium total Nupur Schworm Start: 01-22-2015 Hemoglobin A1c measurement Patrice Suarez Start: 01-22-2015 Hemoglobin glycosylated a1c Nupur [...] Schworm Start: 09-14-2014 Blood chemistry Patrice S chroeder Start: 09-14-2014 Hemoglobin glycosylated a1c Nupur Schworm Start: 09-14-2014 Lipid panel Nupur Schw orm Start: 09-14-2014 Lipid panel Patrice Schr oeder Start: 09-14-2014 MICROALBUMIN/Urine C reat Ratio Nupur Schworm Start: 09-14-2014 Thyroid stimulating hormone measurement Patrice Suarez Start: 09-14-2014 Total thyroxine measurement Patrice Suarez Start: 09-14-2014 Transferase alanine amino alt sgpt Nupur Schworm Start: 06-16-2014 Assay of thyroid sti mulating hormone tsh Nupur Schworm Start: 06-16-2014 Assay of thyroxine total Nupur Schworm Start: 06-16-2014 Basic metabolic pane l calcium total Nupur Schworm Start: 06-16-2014 Blood chemistry Patrice S chroeder Start: 06-16-2014 Diabetic foot examination Nupur Schworm Start: 06-16-2014 Hemoglobin glycosylated a1c Nupur Schworm Start: 06-16-2014 Lipid panel Nupur Schw orm Start: 06-16-2014 Lipid panel Patrice Schr oeder Start: 06-16-2014 MICROALBUMIN/Urine C reat Ratio Nupur Schworm Start: 06-16-2014 Thyroid stimulating hormone measurement Patrice Suarez Start: 06-16-2014 Total thyroxine measurement Patrice Suarez Start: 03-18-2014 Basic metabolic pane l calcium [...] Schworm Start: 12-01-2013 Glucose measurement, quantitative Patrice Choudharyeder Start: 12-01-2013 Glucose quantitative blood xcpt reagent strip Nupur Schworm Start: 12-01-2013 Immunoassay analyte quant radioimmunoassay Nupur Schworm Start: 12-01-2013 Insulin C-peptide measurement Patrice Choudharyeder Start: 12-01-2013 Radioimmunoassay Patrice Suarez Start: 07-21-2013 Alanine aminotransfe rase measurement Patrice Choudharyeder Start: 07-21-2013 Assay of thyroid sti mulating hormone tsh Nupur Schworm Start: 07-21-2013 Assay of thyroxine total Nupur Schworm Start: 07-21-2013 Glucose measurement, quantitative Patrice Suarez Start: 07-21-2013 Glucose quantitative blood xcpt reagent [...] Start: 03-21-2013 Alanine aminotransfe rase measurement Patrice Choudharyeder Start: 03-21-2013 Assay of thyroid sti mulating hormone tsh Nupur Schworm Start: 03-21-2013 Assay of thyroxine total Nupur Lacey Start: 03-21-2013 Glucose measurement, quantitative Patrice Suarez Start: 03-21-2013 Glucose quantitative blood xcpt reagent strip Nupur Lacey Start: 03-21-2013 Hemoglobin glycosylated a1c Nupur Lacey Start: 03-21-2013 Lipid panel Nupur Schw orm Start: 03-21-2013 Lipid panel Patrice roman Start: 03-21-2013 MICROALBUMIN/Urine C reat Ratio Nupur Lacey Start: 03-21-2013 Thyroid stimulating hormone measurement Patrice Suarez Start: 03-21-2013 Total thyroxine measurement Patrice Suarez Start: 03-21-2013 Transferase alanine amino alt sgpt Nupur Lacey Plan of Treatment Date Care Activity Detail Author Start: 09-04-2028 Screening for malign ant neoplasm of colon Colonoscopy [facility] Start: 08-15-2024 Adult BMI Screening Adult BMI Screen ing [facility] Start: 08-15-2024 Tobacco Screening Tobacco Screening [facility] Start: 11-16-2023 Depression Screening Depression Scre ening [facility] Start: 11-16-2023 Fall Risk Screening Fall Risk Screen ing [facility] Start: 11-16-2023 Medicare Annual Well ness Visit Medicare Annual Wellness Visit [facility] Start: 11-01-2023 Assay of thyroid stimulating hormone tsh TSH [facility] Start: 11-01-2023 Assay of thyroxine total T4 [facility] Start: 11-01-2023 Glucose quantitative blood xcpt reagent strip GLUCOSE [facility] Start: 11-01-2023 Hemoglobin glycosyla tereso a1c Hemoglobin A1C [facility] Start: 11-01-2023 Lipid panel LIPID PROFILE [facility] Start: 08-02-2023 Assay of thyroid stimulating hormone tsh TSH [facility] Start: 08-02-2023 Assay of thyroxine total T4 [facility] Start: 08-02-2023 Basic metabolic pane l calcium total Chem 8 [facility] Start: 08-02-2023 Continuous glucose monitoring analysis i&r GLUCOSE MONITOR INTERP AND REPORT [facility] Start: 08-02-2023 Hemoglobin glycosyla tereso a1c Hemoglobin A1C [facility] Start: 05-21-2023 Glaucoma screening Diabetic Op hthalmology Exam [facility] Start: 05-02-2023 Basic metabolic pane l calcium total Chem 8 [facility] Start: 05-02-2023 Continuous glucose monitoring analysis i&r GLUCOSE MONITOR INTERP AND REPORT [facility] Start: 05-02-2023 Hemoglobin glycosyla tereso a1c Hemoglobin A1C [facility] Start: 05-02-2023 Lipid panel LIPID PROFILE [facility] Start: 03-15-2023 Influenza vaccination Influenza Vacc ine [facility] Start: 01-30-2023 Basic metabolic pane l calcium total Chem [address] [facility] Start: 01-30-2023 Continuous glucose monitoring analysis i&r GLUCOSE MONITOR INTERP AND REPORT [facility] Start: 01-30-2023 Hemoglobin glycosyla tereso a1c Hemoglobin A1C [facility] Start: 10-31-2022 Assay of thyroid stimulating hormone tsh TSH [facility] Start: 10-31-2022 Assay of thyroxine total T4 [facility] Start: 10-31-2022 Basic metabolic pane l calcium total Chem 8 [facility] Start: 10-31-2022 Continuous glucose monitoring analysis i&r GLUCOSE MONITOR INTERP AND REPORT [employer] Start: 10-31-2022 Hemoglobin glycosyla tereso a1c Hemoglobin A1C [facility] Start: 10-31-2022 Lipid panel LIPID PROFILE [facility] Start: 10-31-2022 X-ray of left foot Ginny conroy Taomee Start: 08-02-2022 Basic metabolic pane l calcium total Chem 8 [facility] Start: 08-02-2022 Continuous glucose monitoring analysis i&r GLUCOSE MONITOR INTERP AND REPORT [facility] Start: 08-02-2022 Hemoglobin glycosyla tereso a1c Hemoglobin A1C [facility] Start: 08-02-2022 Lipid panel LIPID PROFILE [facility] Start: 08-02-2022 Transferase alanine amino alt sgpt SGPT (ALT) [facility] Start: 07-10-2022 End: 07-10-2022 EYE VITRECTOMY EYE VITRECTOMY Epiretinal membrane (ERM) of right eye 07/10/2022 11:22 AM [facility] Start: 05-02-2022 Continuous glucose monitoring analysis i&r GLUCOSE MONITOR INTERP AND REPORT [facility] Start: 02-12-2022 Influenza vaccination Flu vaccine (# 1) [facility] Start: 01-30-2022 Basic metabolic pane l calcium total Chem 8 [employer] Start: 01-30-2022 Continuous glucose monitoring analysis i&r GLUCOSE MONITOR INTERP AND REPORT [employer] Start: 01-30-2022 Hemoglobin glycosyla tereso a1c Hemoglobin A1C [facility] Start: 01-30-2022 Lipid panel LIPID PROFILE [facility] Start: 10-31-2021 Assay of thyroid stimulating hormone tsh TSH [facility] Start: 10-31-2021 Assay of thyroxine total T4 [facility] Start: 10-31-2021 Basic metabolic pane l calcium total Chem [address] [facility] Start: 10-31-2021 Continuous glucose monitoring analysis i&r GLUCOSE MONITOR INTERP AND REPORT [facility] Start: 10-31-2021 Hemoglobin glycosyla tereso a1c Hemoglobin A1C [place] [facility] Start: 08-02-2021 Assay of thyroid stimulating hormone tsh TSH [facility] Start: 08-02-2021 Assay of thyroxine total T4 [facility] Start: 08-02-2021 Basic metabolic pane l calcium total Chem [address] [facility] Start: 08-02-2021 Continuous glucose monitoring analysis i&r GLUCOSE MONITOR INTERP AND REPORT [facility] Start: 05-05-2021 Assay of thyroid stimulating hormone tsh TSH [facility] Start: 05-05-2021 Assay of thyroxine total T4 [place] [facility] Start: 05-05-2021 Basic metabolic pane l calcium total Chem [address] [facility] Start: 05-05-2021 Hemoglobin glycosyla tereso a1c Hemoglobin A1C [place] Marina Guvera [facility] Start: 02-02-2021 Continuous glucose monitoring analysis i&r GLUCOSE MONITOR INTERP AND REPORT [facility] Start: 01-19-2021 Basic metabolic pane l calcium total Chem 8 [facility] Start: 01-19-2021 HbA1c (Bld) [Mass fraction] Hemoglobin A1C [facility] Start: 01-19-2021 Lipid panel LIPID PROFILE [facility] Start: 10-20-2020 Continuous glucose monitoring analysis i&r GLUCOSE MONITOR INTERP AND REPORT [facility] Start: 10-20-2020 Glucose [Mass/Vol] GLUCOSE MON ITOR INTERP AND REPORT [facility] Start: 10-20-2020 T4 [Mass/Vol] T4 [facility] Start: 10-20-2020 TSH Qn TSH [facility] Start: 10-19-2020 Glucose quantitative blood xcpt reagent strip GLUCOSE 2 HR Post Prandial [facility] Start: 10-19-2020 HbA1c (Bld) [Mass fraction] Hemoglobin A1C [facility] Start: 07-21-2020 Glucose [Mass/Vol] GLUCOSE MON ITOR INTERP AND REPORT [facility] Start: 07-21-2020 SARS-Kuhn Virus-2 IgG Antibody to [facility] SARS-Kuhn Virus-[address] Start: 07-16-2020 Basic metabolic pane l calcium total Chem 8 [facility] Start: 07-16-2020 HbA1c (Bld) [Mass fraction] Hemoglobin A1C [facility] Start: 07-16-2020 Lipid panel LIPID PROFILE [facility] Start: 07-16-2020 T4 [Mass/Vol] T4 [facility] Start: 07-16-2020 TSH Qn TSH [facility] Start: 04-15-2020 Basic metabolic pane l calcium total Chem 8 [facility] Start: 04-15-2020 HbA1c (Bld) [Mass fraction] Hemoglobin A1C [facility] Start: 04-15-2020 Lipid panel Lipid profile [facility] Start: 04-14-2020 Urate [Mass/Vol] Uric acid, serum Bl [facility] Start: 11-20-2019 Basic metabolic pane l calcium total Chem 8 [facility] Start: 11-20-2019 HbA1c (Bld) [Mass fraction] Hemoglobin A1C [facility] Start: 11-20-2019 T4 [Mass/Vol] T4 [facility] Start: 11-20-2019 TSH Qn [facility] WITH [facility] Start: 08-22-2019 Basic metabolic pane l calcium total Chem 8 [facility] Start: 08-22-2019 HbA1c (Bld) [Mass fraction] Hemoglobin A1C [facility] Start: 08-22-2019 Lipid panel Lipid profile [facility] Start: 05-15-2019 Basic metabolic pane l calcium total Chem 8 [facility] Start: 05-15-2019 HbA1c (Bld) [Mass fraction] Hemoglobin A1C [facility] Start: 02-28-2019 Basic metabolic pane l calcium total [facility] Start: 02-28-2019 HbA1c (Bld) [Mass fraction] Hemoglobin A1C [facility] Start: 02-28-2019 Hemoglobin glycosyla tereso a1c GLYCOSYLATED HEMOGLOBIN TEST [facility] Start: 02-28-2019 Lipid panel [facility] Start: 02-28-2019 T4 [Mass/Vol] T4 [facility] Start: 02-28-2019 TSH Qn TSH [facility] Start: 02-12-2019 Blood count complete automated CBC PLATELET COUNT; AUTOMATED [facility] Start: 02-12-2019 Glucose [Mass/Vol] GLUCOSE MON ITOR INTERP AND REPORT [facility] Start: 05-30-2018 Glucose [Mass/Vol] GLUCOSE MON ITOR INTERP AND REPORT [facility] Start: 1988 Screening for malign ant neoplasm of breast Mammogram [facility] Start: 11-07-1967 Administration of varicella zoster vaccine Zoster (Shingles) Vaccine (1 of 2) [facility] Start: 11-07-1967 DTaP,Tdap and Td Vaccines (1 - Tdap) DTaP,Tdap and Td Vaccines (1 - Tdap) [facility] Start: 11-07-1967 DTaP/Tdap/Td vaccine (1 - Tdap) DTaP/Tdap/Td vaccine (1 - Tdap) [facility] Start: 1966 Adult BMI Follow Up Plan Adult BMI Follow Up Plan [facility] Start: 1966 Diabetic foot examination Diabetic Foot Exam [facility] Start: 05-08-1949 COVID-19 Vaccine (#1) COVID-19 Vacci ne (#1) [facility] Start: 1948 Urine screening for protein Urine Microalbumin [facility] End: 07-10-2022 POC CHEM8 INCLUDES CALC. ANION GAP POC CHEM8 INCLUDES CALC. ANION GAP Point of Care Testing STAT One Time for 1 Occurrences starting 07/10/2022 until 07/10/2022 [facility] Comment on above: One Time for 1 Occur rences starting 07/10/2022 until 07/10/2022 Unhealing Lesion on Left leg [facility] Immunizations Immunization Date Immunization Notes Care Provider Fa cility 05-22-2019 pneumococcal conjuga te vaccine, 13 valent; Translations: [PNEUMOCOCCAL VACC 13 CASSANDRA IM] Nupur Lacey [facility] 05-22-2019 PCV 13; Translations : [Administration of pneumococcal vaccine] Patrice Daniela [facility] Payers Date Payer Category Payer Self-pay [id number] 2019 Unknown [id number] 2019 Unknown [employer] [id number] 2019-Present [phone] [address] [place] [id number] [id number] 2013 Medicare MEDICARE MEDICAR E PART A & B [id number] 2013-Present [phone] [address] [place] [address] [id number] 1959 Medicare [id number] 1959 Unknown [id number] 1948 Unknown [id number] 1948 Unknown [id number] 1948 Unknown [id number] 1948 Unknown [id number] Unknown [id number] Unknown [id number] Unknown [id number] Social History Date Type Detail Facility Start: 07-05-2022 End: 12-10-2023 Never smoker [facility] Start: Caffeine [facility] Start: 07-05-2022 End: 11-15-2022 Tobacco use and exposure Smokeless tobacco non-user [employer] [facility] Phone: Start: 07-10-2022 Alcohol intake Lifetime non-drinker (finding) [employer] Home Phone: Start: 1950 Sex Assigned At Not on file B ON [employer] Phone: Start: 06-25-2022 End: 07-05-2022 Exposure to SARS-CoV-2 (event) Not sure [employer] Home Phone: Start: 11-16-2021 End: 08-15-2023 Sex Assigned At [facility] Start: 1950 Sex Assigned At Female F [facility] Start: 08-15-2023 Alcohol intake 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 Yes [facility] Are you now , , , , never or living with a partner? [facility] How often to you hav e a drink containing alcohol? Never [facility] How many standard dr inks containing alcohol do you have on a typical day? 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 DX E10.9 TYPE 1 DIABETES INSULIN TREATED PUMP Start: 08-01-2021 End: 08-23-2022 Clinical Notes 09-30-2020 to 09-12-2023 Telephone Encounter - Juanita Campoverde CMA - 09/12/2023 9:30 AM ESTTelephone Encounter - Juanita Campoverde, [facility] - 09/12/2023 9:30 AM ESTTelephone Encounter - Juanita Campoverde, ABRAHAN - 09/12/2023 9:30 AM EST Note Date & Type Note Facility 09-12-2023 Miscellaneous Notes Formattin g of this note might be different from the original. ----- Message from Paulette Voss DO sent at 09/10/2023 7:10 AM EST ----- Please let patient know the biopsy was negative. She may follow up p.r.n.. She is 72 and does not need another colonoscopy unless she has problems. Thanks, Dr. Carolina Spoke with patient regarding pathology results. Patient verbally understood with no further questions. documented in this encounter [facility] 09-12-2023 Telephone encount er Note ----- Message from Paulette Voss DO sent at 09/10/2023 7:10 AM EST ----- Please let patient know the biopsy was negative. She may follow up p.r.n.. She is 72 and does not need another colonoscopy unless she has problems. Thanks, Dr. Carolina [facility] 09-12-2023 Telephone encount er Note Spoke with patient regarding pathology results. Patient verbally understood with no further questions. [facility] 06-20-2023 Evaluation note Encounter Date Diagnosis Assessment [...] understanding and is agreeable to treatment plan. [facility] Other 11-30-2023 Evaluation note* Encounter Date Diagnosis Assessment Notes Treatment Notes Treatment Clinical Notes May, Type 1 diabetes mellitus without complication (ICD-10 - E10.9) Follows with Endocrinology every [address] Pan in [facility]. Last A1c was 6.0. Reports [...] Z85.038) Follows with Dr. Voss, has an ucoming a appointment in July. [facility] Other 12-27-2022 Hospital Discharge instructions* Discharge Instructions* Jaqueline Fair RN - 07/10/2022 12:37 PM [...] urinate call your doctor [facility] Work Phone: [phone] 421-876303-25-2021 NoteHNO ID: [id number] Author: Farrah Dorsey) Delgado Service: ? Author Type: Physician Type: Progress Notes Filed: 10/06/2020 1:33 PM Note Text: CHIEF COMPLAINT: right colon cancer HISTORY OF PRESENT ILLNESS: Mariana Viveros is a 68 year old woman who [...] hemangioma : Discussed with GI oncology on [facility] and surgical oncology with plan to [...] MULTIPLE SMALL CYSTIC BERG (more content not included)...[facility]03-19-2021 NoteHNO ID: [id number] Author: Ramon Camp (Tech) Service: ? Author Type: Medical Care Manager Type: Progress Notes Filed: 09/30/2020 11:38 AM Note Text: Radiology Service Progress Note PATIENT NAME: Mraiana Viveros DATE OF SERVICE: September 30, 2020 TIME: [...] BY: Ramon Camp September 30, 2020 10:22 [facility] Macular pucker, right eye- Primary Macular puckering of retina documented in this encounter [facility] Work Phone: evaluation noteNo assessment information available [facility] Work Phone: Evaluation note* Diagnosis Diarrhea, unspecified type Colon cancer metastasized to liver (CMS-HCC) documented in this encounter [facility] SystemHistory general Narrative - Reported* Type Description Date Medical History Type 1 diabetes Medical History Hypothyroid Medical History Colon CA- 2015 Surgical History Liver resection Surgical History Breast cyst removed- non cancer ous Surgical History x2 [facility] Other InstructionsNot on filedocumented in this encounter [facility] Summary Purpose Family History Relationship Condition Age at Onset Recorded Date/T rosita father Unknown History of malignant neoplasm of prostate Unknown family member Family history of other condition Unknow n Not Specified Unknown Congestive heart failure Unknown Advance Directives Advance Directive Response Recorded Date/ Time Advance Directives No May 3:39pm Advance Directive Response Recorded Date/ Time Advance Directives No May 4:39pm Chief Complaint and Reason for Visit Chief Complaint 6 month follow up Additional Source Comments INFORMATION SOURCE (unrecogn ized section and content) DATE CREATED AUTHOR 07/22/2020 [facility] DATE CREATED AUTHOR AUTHOR'S ORGANIZ ATION 09/05/2021 [facility] DATE CREATED AUTHOR AUTHOR'S ORGANIZ ATION 07/10/2022 [facility] DATE CREATED AUTHOR AUTHOR'S ORGANIZ ATION 11/18/2022 [facility] DATE CREATED AUTHOR AUTHOR'S ORGANIZ ATION 08/18/2023 [facility] DATE CREATED AUTHOR AUTHOR'S ORGANIZ ATION 08/18/2023 [facility] DATE CREATED AUTHOR AUTHOR'S ORGANIZ ATION 09/12/2023 [facility] Reason for Visit (unrecogniz ed section and content) Specialty Diagnoses / Procedures Referred By Az t Referred To Contact Diagnoses Epiretinal membrane (ERM) of right eye EPIRETINAL MEMBRANE RIGHT EYE Procedures NM OFFICE/OUTPT VISIT,PROCEDURE ONLY NM COLONOSCOPY FLX DX W/COLLJ SPEC WHEN PFRMD VITRECTOMY 25 GAUAGE, MEMBRANE PEEyal Loco MD [address] [facility] [facility], [address] [place] [address] [facility] [address] [place] [address] Referral ID Status Reason Start Date Expiration Date Visits Re quested Visits Authorized [id number] 1 1 PRN Active and Recently Administ [...] on Sat07/10/22 at 0942, Until 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, Other, 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, Pre-op (day of surgery) 1021 [...] Starting on Sat07/10/22 at 0942, Until 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, 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, Pre-op (day of surgery) 1021 (Given - Provid er: Puja Colin RN)1027 (Given - Provider: Puja Colin RN)1047 (Given - Provider: Puja Colin RN) phenylephrine (MITALI-SYNEPHRINE) 10 % ophthalmic solution 1 drop (COMPLETED) 1 drop, Right Eye, EVERY 5 MIN PRN, 3 doses, Starting on Sat07/10/22 at 0942, Until 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, 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 OR 07-10-22, Pre-op (day of surgery) 1022 (Given - Provid er: Puja Colin RN)1027 (Given - Provider: Puja Colin RN)1047 (Given - Provider: Puja Colin RN) sterile water injection (CANCELED) PRN, Starting on Sat07/10/22 at 1144, Until Sat07/10/22 at 1202, Intra-op 1144 (Given - Provid er: Eyal Sanchez MD - Comment: FORTAZ)1149 (Given - Provider: Eyal Sanchez MD - Comment: ICG) Care Teams (unrecognized sec tion and content) 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 [employer] Relationship Specialty Start Date End Date Anatoliy Mckeon [address] [place] [address] PCP - General Internal Medicine 07/03/22 Team Status: Inactive Member Role Status Dates Gloria Mooney APRN TAIL RIPPERBrody Attending Provider Act delisa Start: June 13, 2023 End: June 13, 2023 Team Status: Inactive Member Role Status Dates SAMINA Montaño Attending Provider Act delisa Start: June 26, 2023 End: June 26, 2023 Team Status: Inactive Member Role Status Dates Paulette Voss DO Attending Provider Active Start: September 04, 2023 End: September 04, 2023 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 Relationship Specialty Start Date End Date Anatoliy Mckeon MD [address] [place] [address], [address] [place], [place] [id number] PCP - General Pediatrics 12/17/16 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 Relationship Specialty Start Date End Date Anatoliy Mckeon MD [address] [place] [address], [address] [place], [place] [id number] PCP - General Pediatrics 12/17/16 Team Status: Active Member Role Status Dates Gloria Mooney APRN TAIL RIPPER-Dianne Primary Care Provider Active Team Status: Inactive Member Role Status Dates Gloria Mooney APRN TAIL RIPPER-C Primary Care Provider, Attending Provider Active Start: December 10, 2023 End: December 10, 2023 Goals (unrecognized section and content) Goals may be documented in a n alternate section FOR RECORDS PERTAINING TO PATIENTS WHO ARE [...] BE BASED ON THE PRIMARY CLINICAL RECORDS. [facility] [employer] [facility]. provides no warranty or guarantee of the accuracy or completeness of information in this document.
[2023-12-26 21:13] VITALS: BP 178/80; PULSE 89; TEMP 36.7; O2SAT 99; BMI 30.3
--- NOTE | 2023-12-26 21:30 | XR_ITS ---
The [address] [address] Patient Name: LARISA VIVEROS MRN: [id number] date: 1950 Sex: F Assigned Patient Location: ER Current Patient Location: ER Accession/Order Number: [id number] Exam Date: 12/26/2023 21:55 Report Date: 12/26/2023 22:43 At the request of: POOJA PANTOJA Procedure: XR forearm LT 2V EXAM: XR elbow LT min 3V, XR forearm LT 2V, XR wrist LT min 3V HISTORY: fall COMPARISON: None. FINDINGS/IMPRESSION: 1. Subtle irregularity of the anterior aspect of the radial neck, may represent nondisplaced fracture. (CT could characterize more accurately). 2. There is an elbow joint effusion. 3. Moderate degeneration of the first carpometacarpal joint. 4. Normal alignment of the carpal bones. 5. No acute fracture of the radius or ulna. Electronically authenticated by: JUNIOR MASSEY Date: 12/26/2023 22:43
--- NOTE | 2023-12-26 21:30 | XR_ITS ---
The [address] [address] Patient Name: LARISA VIVEROS MRN: [id number] date: 1950 Sex: F Assigned Patient Location: ER Current Patient Location: ER Accession/Order Number: [id number] Exam Date: 12/26/2023 21:55 Report Date: 12/26/2023 22:49 At the request of: POOJA PANTOJA Procedure: XR shoulder LT min 2V EXAM: XR shoulder LT min 2V HISTORY: The patient is a 73-year-old female, fall COMPARISON: None. FINDINGS: No fractures or dislocations are seen within or around the left shoulder. The glenohumeral joint is maintained. The acromioclavicular joint is maintained. The subacromial space is maintained. There is a focal calcification adjacent to the greater tuberosity, likely representing calcific tendonitis. XR/XR shoulder LT min 2V IMPRESSION: No radiographic findings of acute trauma of the left shoulder. Electronically authenticated by: JUVE LEVIN Date: 12/26/2023 22:49
--- NOTE | 2023-12-26 21:30 | XR_ITS ---
The [address] [address] Patient Name: LARISA VIVEROS MRN: [id number] date: 1950 Sex: F Assigned Patient Location: ER Current Patient Location: ER Accession/Order Number: [id number] Exam Date: 12/26/2023 21:55 Report Date: 12/26/2023 22:43 At the request of: POOJA PANTOJA Procedure: XR elbow LT min 3V EXAM: XR elbow LT min 3V, XR forearm LT 2V, XR wrist LT min 3V HISTORY: fall COMPARISON: None. FINDINGS/IMPRESSION: 1. Subtle irregularity of the anterior aspect of the radial neck, may represent nondisplaced fracture. (CT could characterize more accurately). 2. There is an elbow joint effusion. 3. Moderate degeneration of the first carpometacarpal joint. 4. Normal alignment of the carpal bones. 5. No acute fracture of the radius or ulna. Electronically authenticated by: JUNIOR MASSEY Date: 12/26/2023 22:43
--- NOTE | 2023-12-26 21:30 | XR_ITS ---
The [address] [address] Patient Name: LARISA VIVEROS MRN: [id number] date: 1950 Sex: F Assigned Patient Location: ER Current Patient Location: ER Accession/Order Number: [id number] Exam Date: 12/26/2023 21:55 Report Date: 12/26/2023 22:43 At the request of: POOJA PANTOJA Procedure: XR wrist LT min 3V EXAM: XR elbow LT min 3V, XR forearm LT 2V, XR wrist LT min 3V HISTORY: fall COMPARISON: None. FINDINGS/IMPRESSION: 1. Subtle irregularity of the anterior aspect of the radial neck, may represent nondisplaced fracture. (CT could characterize more accurately). 2. There is an elbow joint effusion. 3. Moderate degeneration of the first carpometacarpal joint. 4. Normal alignment of the carpal bones. 5. No acute fracture of the radius or ulna. Electronically authenticated by: JUNIOR MASSEY Date: 12/26/2023 22:43
--- NOTE | 2023-12-26 22:47 | PC.NURSE ---
Pain to left arm and elbow, skin pink and warm, pulses present. Ice pack applied.
--- NOTE | 2023-12-26 23:02 | CT_ITS ---
The [address] [address] Patient Name: LARISA VIVEROS MRN: [id number] date: 1950 Sex: F Assigned Patient Location: ER Current Patient Location: Accession/Order Number: [id number] Exam Date: 12/26/2023 23:24 Report Date: 12/26/2023 23:49 At the request of: POOJA PANTOJA Procedure: CT elbow LT wo con EXAM: CT elbow LT wo con HISTORY: The patient is a 73-year-old female, fracture COMPARISON: None. TECHNIQUE: CT images were obtained through the left elbow without intravenous contrast and reformatted in 2 dimensions. Dose reduction techniques were achieved by using automated exposure control and/or adjustment of mA and/or kV according to patient size and/or use of iterative reconstruction technique. FINDINGS: The soft tissue images confirm the radiographic findings of a joint effusion causing elevation of the anterior and posterior elbow fat pads. Indeed, axial image 21 of series 5 demonstrates a lipohemarthrosis, confirming the presence of an intra-articular fracture. Coronal bone image 17 of series 8 demonstrates 2 thin longitudinal lucencies extending to the articular surface of the radial head, consistent with nondisplaced radial head fractures. No other fractures or cortical discontinuities are seen within the distal humerus, proximal ulna, or proximal radius. The articular surfaces are anatomically aligned. CT/CT elbow LT wo con IMPRESSION: Nondisplaced radial head fracture with an associated lipohemarthrosis in the elbow joint. Electronically authenticated by: JUVE LEVIN Date: 12/26/2023 23:49
--- NOTE | 2023-12-27 00:11 | ED_ITS ---
HPI HPI - Fall General Chief Complaint: Fall Stated Complaint: FALL Time Seen by Provider: 12/26/23 21:26 Source: patient Mode of arrival: walk-in Limitations: no limitations History of Present Illness HPI Narrative: tripped over a curb around 4:30pm and injured left arm. complains of pain of the left wrist, FA, elbow and shoulder. Denies other injury. No numbness. Did not strike her head Related Data Home Medications ?Medication ?Instructions ?Recorded ?Confirmed ascorbic acid (vitamin C) 1,000 mg 1 g PO DAILY 08/26/23 09/04/23 capsule cholecalciferol (vitamin D3) 25 25 mcg PO DAILY 08/26/23 09/04/23 mcg (1,000 unit) capsule cinnamon bark 500 mg capsule 500 mg PO DAILY 08/26/23 09/04/23 (Cinnamon) coenzyme Q10 30 mg capsule (Co 30 mg PO DAILY 08/26/23 09/04/23 Q-10) insulin glulisine U-100 100 1 sliding scale dose subcut 08/26/23 09/04/23 unit/mL subcutaneous solution USEASDIRECTD (Apidra U-100 Insulin) levothyroxine 100 mcg capsule 100 mcg PO DAILY 08/26/23 09/04/23 magnesium oxide 400 mg PO DAILY 08/26/23 09/04/23 multivitamin (Daily Multi-Vitamin 1 tab PO DAILY 08/26/23 09/04/23 tablet) vitamin B complex and vitamin C 1 cap PO DAILY 08/26/23 09/04/23 no.20-folic acid 1 mg capsule zinc 50 mg capsule 50 mg PO DAILY 08/26/23 09/04/23 Allergies Allergy/AdvReac Type Severity Reaction Status Date / Time adhesive tape Allergy Rash Verified 08/26/23 13:50 latex Allergy Rash Verified 08/26/23 13:50 silicone Allergy Verified 08/26/23 13:50 [id number]-UFK-TuD Reductase Allergy Joint Pain Verified 08/26/23 13:50 Inhibitor Opioid HPI Opioid Management Most Recent Pain and Opioid Data: No Data to Display Review of Systems ROS Status of ROS 10 or more systems reviewed and unremark able except as noted in history and below [facility] Medical History (Updated 12/27/23 @ 00:26 by Joesph Solis MD) Heart murmur ?R01.1 - Cardiac murmur, unspecified (ICD-10) Insulin pump in place ?Z96.41 - Presence of insulin pump (external) (internal) (ICD-10) Hypothyroid ?E03.9 - Hypothyroidism, unspecified (ICD-10) Cataract ?H26.9 - Unspecified cataract (ICD-10) Diabetes ?E11.9 - Type 2 diabetes mellitus without complications (ICD-10) Arthritis ?M19.90 - Unspecified osteoarthritis, unspecified site (ICD-10) Anemia ?D64.9 - Anemia, unspecified (ICD-10) Colon cancer metastasized to liver ?C18.9 - Malignant neoplasm of colon, unspecified (ICD-10) ?C78.7 - Secondary malignant neoplasm of liver and intrahepatic bile duct (ICD-10) Diarrhea ?R19.7 - Diarrhea, unspecified (ICD-10) Surgical History (Updated 08/26/23 @ 13:46 by Maine Goodrich NP) H/O tubal ligation ?Z98.51 - Tubal ligation status (ICD-10) Hx of tonsillectomy ?Z90.89 - Acquired absence of other organs (ICD-10) H/O cataract extraction ?Z98.49 - Cataract extraction status, unspecified eye (ICD-10) H/O colonoscopy ?Z98.890 - Other specified postprocedural states (ICD-10) History of partial colectomy ?Z90.49 - Acquired absence of other specified parts of digestive tract (ICD- 10) H/O insertion of central venous access port ?Z95.828 - Presence of other vascular implants and grafts (ICD-10) History of carpal tunnel release ?Z98.890 - Other specified postprocedural states (ICD-10) H/O breast surgery ?Z98.890 - Other specified postprocedural states (ICD-10) S/P arthroscopic knee surgery ?Z98.890 - Other specified postprocedural states (ICD-10) Family History (Updated 08/26/23 @ 13:58 by Maine Goodrich NP) Other Family history of CHF (congestive heart failure) Family history of cancer Family history of seizures Heart disease Social History (Updated 08/26/23 @ 13:55 by Maine Goodrich NP) Within the past year, how often did you have a drink containing alcohol: never Score interpretation: A score less than 3 is consistent with normal alcohol consumption. Smoking status: Never smoker Highest level of school completed/degree received: high school graduate Exam Constitutional Vital Signs, click to edit/add: Last Vital Signs Temp 98.0 F 12/26/23 21:13 Pulse 89 12/26/23 21:13 Resp 18 12/26/23 21:13 BP 178/80 H 12/26/23 21:13 Pulse Ox 99 12/26/23 21:13 O2 Del Method Room Air 12/26/23 21:13 Common normals: no apparent distress, average body habitus, oriented x3 and no limitations HENMT Common normals: normocephalic and head/scalp atraumatic Eye Common normals: EOMs intact bilaterally and conjunctivae normal Respiratory Common normals: normal respiratory effort, no retractions and no use of accessory muscles Cardio Common normals: regular rate, regular rhythm, S1 normal heart sound and S2 normal heart sound Extremity Common normals: normal to inspection Other: no deformity of her left arm including wrist, FA, elbow or shoulder. Does have tenderness of palp of elbow and decreased ROM Neuro Common normals: oriented x3, CN's II-XII intact bilaterally, moves all extremities and no focal motor deficits Psych Appearance: grossly normal Course Vital Signs Vital signs: Vital Signs Temperature 98.0 F 12/26/23 21:13 Pulse Rate 89 12/26/23 21:13 Respiratory Rate 18 12/26/23 21:13 Blood Pressure 178/80 H 12/26/23 21:13 Pulse Oximetry 99 12/26/23 21:13 Oxygen Delivery Method Room Air 12/26/23 21:13 Temperature 98.0 F 12/26/23 21:13 Pulse Rate 89 12/26/23 21:13 Respiratory Rate 18 12/26/23 21:13 Blood Pressure 178/80 H 12/26/23 21:13 Pulse Oximetry 99 12/26/23 21:13 Oxygen Delivery Method Room Air 12/26/23 21:13 MDM - Fall MDM Narrative Medical decision making narrative: patient fell and injured left arm. CT with finding of left radial head fracture. Patient placed in a splint and discharged to follow up with ortho Imaging Data Abdominal x-ray: Radiologist's impression: ITS Impressions Shoulder X-Ray 12/26/23 21:30 IMPRESSION: No radiographic findings of acute trauma of the left shoulder. Electronically authenticated by: JUVE LEVIN Date: 12/26/2023 22:[address] 12/26/23 23:02 IMPRESSION: Nondisplaced radial head fracture with an associated lipohemarthrosis in the elbow joint. Electronically authenticated by: JUVE LEVIN Date: 12/26/2023 23:49 Discharge Plan Discharge Stand Alone Forms: Portal Instructions Chief Complaint: Fall Clinical Impression: Elbow fracture, left, Left shoulder strain, Muscle strain of left wrist Patient Disposition: Home, Self-Care Prescriptions / Home Meds: No Action ascorbic acid (vitamin C) 1,000 mg capsule 1 g PO DAILY B complex with C 20-folic acid 1 mg capsule 1 cap PO DAILY cholecalciferol (vitamin D3) 25 mcg (1,000 unit) capsule 25 mcg PO DAILY cinnamon bark [Cinnamon] 500 mg capsule 500 mg PO DAILY levothyroxine 100 mcg capsule 100 mcg PO DAILY magnesium oxide 400 mg magnesium capsule 400 mg PO DAILY multivitamin [Daily Multi-Vitamin] Tablet 1 tab PO DAILY zinc 50 mg capsule 50 mg PO DAILY Apidra U-100 Insulin 100 unit/mL solution 1 sliding scale dose subcut USEASDIRECTD Rx Instructions: via insulin pump coenzyme Q10 [Co Q-10] 30 mg capsule 30 mg PO DAILY Print Language: Bahraini Instructions: Wrist Injury (ED), Elbow Fracture (ED) Additional Instructions: follow up with Dr ceja Referrals: DANY DEL CASTILLO [Primary Care Provider] - 1 week Procedures ED Procedure Instructions Procedures Procedures: left radial head fracture: fiber glass material used to place pos. elbow splint . Tolerated well. N/V post procedure WNL
== END 2023-12-27 00:40 | disposition home or self-care (01) ==
PROVIDERS: Emergency Provider Internal Medicine; PCP Nurse Practitioner Family
DX: S52.125A Nondisplaced fracture of head of left radius, initial encounter for closed fracture (principal); S66.912A Strain of unspecified muscle, fascia and tendon at wrist and hand level, left hand, initial encounter; S46.912A Strain of unspecified muscle, fascia and tendon at shoulder and upper arm level, left arm, initial encounter; W10.1XXA Fall (on)(from) sidewalk curb, initial encounter
CPT/HCPCS: 29105; 73030; 73080; 73090; 73110; 73200; 99284

== ENCOUNTER 2024-01-13 11:15 | Outpatient (OUT) | payer MEDICARE, OTHER, SELFPAY ==
--- NOTE | 2024-01-13 | XR_ITS ---
The [address] [address] Patient Name: LARISA VIVEROS MRN: [id number] date: 1950 Sex: F Assigned Patient Location: Current Patient Location: Accession/Order Number: [id number] Exam Date: 01/13/2024 11:20 Report Date: 01/15/2024 06:11 At the request of: BONIFACIO MALDONADO Procedure: XR elbow LT min 3V PROCEDURE: XR elbow LT min 3V HISTORY: LEFT ELBOW PAIN COMPARISON: XR elbow left 12/26/2023 FINDINGS: BONES:Stable mildly impacted fracture across the neck of the proximal radius without appreciable intra-articular extension. SOFT TISSUES:No visible soft tissue swelling. EFFUSION:Small joint effusion. OTHER: Negative. XR/XR elbow LT min 3V IMPRESSION: 1. Stable appearance and alignment of radial neck fracture. 2. Grossly stable small joint effusion. Electronically authenticated by: BONIFACIO TOLEDO Date: 01/15/2024 06:11
== END 2024-01-13 11:16 | disposition home or self-care (01) ==
LOC: EC 11:16
PROVIDERS: PCP Nurse Practitioner Family; Visit Provider Orthopaedic Surgery
DX: S52.125D Nondisplaced fracture of head of left radius, subsequent encounter for closed fracture with routine healing (principal); S52.045D Nondisplaced fracture of coronoid process of left ulna, subsequent encounter for closed fracture with routine healing
CPT/HCPCS: 73080

== ENCOUNTER 2024-02-10 10:30 | Outpatient (OUT) | payer MEDICARE, OTHER, SELFPAY ==
--- NOTE | 2024-02-10 | XR_ITS ---
The [address] [address] Patient Name: LARISA VIVEROS MRN: [id number] date: 1950 Sex: F Assigned Patient Location: Current Patient Location: Accession/Order Number: [id number] Exam Date: 02/10/2024 10:35 Report Date: 02/11/2024 10:20 At the request of: BONIFACIO MALDONADO Procedure: XR elbow LT min 3V PROCEDURE: XR elbow LT min 3V COMPARISON: 01/13/2024 HISTORY: LEFT ELBOW PAIN FINDINGS: BONES:Increased sclerosis along the proximal radial metaphysis consistent with a healing fracture. No new fracture or dislocation. SOFT TISSUES:Negative. No visible soft tissue swelling. EFFUSION:Mild joint effusion OTHER: Negative. XR/XR elbow LT min 3V IMPRESSION: Healing radial head fracture Electronically authenticated by: OLLIE LYON Date: 02/11/2024 10:20
--- OUTSIDE RECORDS SUMMARY | 2024-02-10 10:51 | XMS_ITS | CCD ---
Author Organization [facility] Inform ion Partnership [facility] Care Team Providers Care Health And Physical Education Teacher Name Role Phone Nupur Lacey Primary Care Physician Unavaila marilou Suarez, Patrice Schwartz Unavailable Unavailable Zachary, Luciana Primary Care Physician Unavaila ble Suarez, Patrice Schwartz Primary Care Physician Unaluciano lable Schworm, Nupur S Primary Care Physician Unavaila ble Schworm, Nupur S Primary Care Physician Unavaila ble Zachary, Luciana Primary Care Physician Unavaila ble Suarez, Patrice Schwartz Primary Care Physician Reuben Suarez, Patrice Schwartz Primary Care Physician Reuben montenegro Schworm, Nupur S Primary Care Physician Unavaila ble Schworm, [facility] S Primary Care Physician Unavaila ble Schworm, Nupur S Primary Care Physician Unavaila ble Schworm, Nupur S Primary Care Physician Unavaila marilou Suarez, Patrice Schwartz Primary Care Physician Patrice Orellana Unavailable Unavailable Schworm, Nupur S Primary Care Physician Unavaila [...] ANATOLIY MCKEON Primary Care Unavailable PAULETTE VOSS Unavailable ANATOLIY MCKEON Primary Care Unavailable DO Paulette Voss Attending Provider [phone] Anatoliy Mckeon MD Primary Care Provider Paulette Voss Attending Unavailable Paulette Voss Admitting Unavailable Patrice Suarez Primary Care Physician Reuben montenegro Allergies Allergy Classification Reported Allergen(s) Allergy Type Date of Onset Reaction(s) Facility HMG-CoA Reductase Inhibitors (statins) (1 source) Hmg-Coa Reductase Inhibitors (Statins) Drug Allergy myalgias, jaw tightens [facility] Comment on above: has taken simvastati n and atorvastatin Latex (1 source) Latex Substance Allergy [facility] (20 sources) Hmg-Coa Reductase Inhibitors (Statins); Translations: [EXRLNSA-MYP-DIP REDUCTASE INHIBITORS] Allergy to substance (disorder) 3 myalgias, jaw tightens [facility] Comment on above: has taken simvastati n and atorvastatin (20 sources) Latex; Translations: [latex] Allergy to substance (disorder) 9 Rash [facility] (1 source) Desonide Drug Allergy [facility] Repository (4 sources) ADHESIVE TAPE-SILICONES; Translations: [ADHESIVE TAPE-SILICONES] Propensity to adverse reactions to drug (disorder) 7 [facility] (1 source) Unable to Assess Drug allergy (disorder) 9 [facility] Repository Medications Current Medications Medication Drug Class(es) [...] and 1 capsule before bedtime. 0 Active Insulin Infusion Pump LAKHWINDER (1 source) Insulin Infusion Pump LAKHWINDER Inject into the skin Apidra insulin , dose varies 0 Active insulin glulisine, human 100 unt/ml injectable solution (20 sources) Insulin Analog Start: 09-25-2022 Insulin Glulisine U-100 Active CNTSUBQINF As Directed December 03, 2023 12:00am Start: 08-03-2021 inject 100 [IU] by s [...] mg oral tablet (20 sources) l-Thyroxine Start: 10-14-2023 take 1 tablet by mouth once daily [...] mcg) by oral route once daily ANAI Ninalan Start: 06-17-2018 End: 08-05-2021 levothyroxine 100 mcg [...] drinks, or meds for 1/2hr after. ANAI MYLAN BRAND take 1 tablet by corrina th in the morning, then take 0.5 tablet by mouth once daily Levothyroxine Sodium 100 MCG 1 tablet in the morning on an empty stomach Mon-Sat and 0.5 tablet Saturday Orally Once a [...] hours as needed APIDRA 100 UNITS/ML VIAL (13 sources) Start: 02-09-2021 End: 02-14-2021 APIDRA 100 [...] 1 tablet by oral route daily take [facility] ascorbic acid, vitamin C, (VITAMIN C) 1000 mg tablet Take 1 tablet (1,000 mg total) by mouth in the morning. 0 Active take 2 tablets by mouth twice da grace vitamin C (ASCORBIC ACID) 500 MG tablet Take 1,000 mg by mouth 2 times daily 0 Active ascorbic acid 200 mg / beta carotene 1000 unt / cuprous oxide 2 mg / dl-alpha tocopheryl acetate 60 unt / lutein 2 mg / sodium selenate 0.055 mg / zinc oxide 40 mg oral tablet (12 sources) Vitamin C End: 12-16-2013 take 2 tablets by mouth once daily I-Cyn 300 mcg-200 mg-27 mg-2 mg tablet take 2 tablets by oral route daily calcium & magnesium carbonates Oral (20 sources) End: 12-16-2013 calcium & magnesium carbonates Oral 12/16/2013 chlorhexidine gluconate 40 mg/ml medicated liquid soap (8 sources) Start: 09-11-2022 End: 09-25-2022 Hibiclens 4 [...] capsule by oral route daily take 1 capsule by mo [facility] in the morning, then take 1 capsule by mouth at bedtime cholecalciferol, vitamin D3, (VITAMIN D3) 25 mcg (1,000 unit) capsule Take 1 capsule (1,000 Units total) by mouth in the morning and 1 capsule (1,000 Units total) before bedtime. 0 Active take 1 tablet by corrina th twice daily Cholecalciferol (VITAMIN D3) 125 MCG (5000 UT) TABS Take 1 tablet by mouth 2 times daily 0 Active chromium picolinate 0.4 mg oral tablet (12 sources) take 2 tablets by mo uth once daily chromium picolinate 400 mcg tablet take 2 tablets by oral route daily cinnamon bark 500 mg oral capsule (15 sources) take 2 capsules by m outh [...] route daily gabapentin 100 mg oral capsule (4 sources) Anti-epileptic Agent Start: 02-27-2023 End: 08-26-2023 gabapentin 100 mg capsule 02/27/2023 05/02/2023 Take 1 capsules (100 mg) by oral route at night I-Cyn 300 mcg-200 mg-27 mg-2 mg tablet (4 sources) take 2 tablets by mouth once daily I-Cyn 300 mcg-200 mg-27 mg-2 mg tablet take 2 tablets by oral route daily ICaps 3,821-1-247-75 kqqn-ab-vt-unit oral tablet extended release (20 sources) End: 01-20-2015 take 2 tablets by mouth once daily ICaps 3,337-4-294-75 bvko-dg-mk-unit oral tablet extended release 01/20/2015 take 2 tablets by oral route daily 3 ml insulin glargine 100 unt/ml pen injector (20 sources) Insulin Analog Start: 01-31-2024 Lantus Solostar U-100 Insulin 100 unit/mL (3 mL) subcutaneous insulin pen 01/31/2024 INJECT 6 UNITS PRIME PEN WITH 2 UNITS. USE A BACKUP METHOD IF PUMP DOES NOT WORK. Start: 05-02-2021 Lantus Solosta r U-100 Insulin 100 unit/mL [...] one tablet one a week PreserVision AREDS-2 [phone] ap-ujqt-em-mg oral capsule (20 sources) End: 05-22-20 19 take 1 capsule by mouth twice daily PreserVision AREDS-2 [phone] iq-asad-nc-mg oral capsule 05/22/2019 take 1 capsule by oral route 2 times a day take 1 capsule by mouth twice da grace [facility]er[facility] AREDS-2 [phone] ux-ooku-do-mg oral capsule take 1 capsule by oral [...] every 8 hours vitamin B complex tablet (10 sources) take 2 tablets by mouth once [...] oral route daily zinc 50 mg tablet (12 sources) take 1 tablet by mouth once daily zinc 50 mg tablet take 1 tablet by oral route daily Problems Active Problems Problem Classification Problem Date Documented Da te Episodic/Chronic Acquired foot deformities (12 sources) Other hammer toe(s) (acquired), right foot [...] (1 source) Cardiac murmur, unspecified Episodic Osteoarthritis (8 sources) Unspecified osteoarthritis, unspecified site Onset: 09-10-2022 [...] Date Documented Date Episodic/Chronic Acquired foot deformities (13 sources) Bunion of right foot Onset: 09-05-2022 Episodic Acquired foot deformities (4 sources) Bunion of left foot Onset: 02-25-2023 [...] sources) Mood disorders Onset: 11-15-2022 11-15-2022 Mycoses (17 sources) Tinea unguium Onset: 09-26-2022 Episodic Open wounds of extremities (7 sources) Unspecified open wound of unspecified toe(s) with damage to nail, initial encounter Onset: 09-26-2022 Episodic Other connective tissue disease (20 sources) Cramp of limb Onset: 09-22-2014 Episodic Other connective tissue disease (20 sources) Pain in unspecified foot Onset: 04-14-2020 Episodic Other connective tissue disease (20 sources) Pain in right foot Onset: 04-14-2020 Episodic Other connective tissue disease (7 sources) Pain in left foot Onset: 09-26-2022 Episodic Other connective tissue disease (4 sources) Neuralgia and neuritis, unspecified Onset: 02-25-2023 Episodic Other skin disorders (8 sources) Unspecified disorder of skin and subcutaneous tissue Onset: 11-16-2016 Episodic Other skin disorders (8 sources) Actinic keratosis Onset: 11-16-2016 Episodic Other skin disorders (20 sources) Actinic keratosis Onset: 11-16-2016 Episodic Other skin disorders (20 sources) Disorder of the skin and subcutaneous tissue, unspecified Onset: 11-16-2016 Episodic Other skin disorders (8 sources) Ingrowing nail Onset: 09-10-2022 Episodic Other skin disorders (10 sources) Corns and callosities Onset: 11-26-2022 Episodic Residual codes; unclassified (11 sources) Other specified health status Onset: 05-02-2022 Episodic Skin and subcutaneous tissue infections (20 sources) Local infection of the skin and subcutaneous tissue, unspecified; Translations: [Cutaneous abscess of unspecified foot] Onset: 09-10-2022 Episodic Unclassified (1 source) ref_[id number] ness_name_46 Onset: 08-05-2015 Unclassified (1 source) ref_[id number] ness_name_44 Onset: 08-05-2015 Unclassified (1 source) ref_[id number]_mwhkCch ness_name_36 Onset: 01-20-2015 Unclassified (1 source) ref_[id number] ness_name_35 Onset: 01-20-2015 Unclassified (1 source) [id number]_sgdiEgx ness_name_35 Onset: 01-20-2015 Unclassified (1 source) [id number]_qcqeHoc ness_name_36 Onset: 01-20-2015 Unclassified (1 source) [id number]_fqufSwn ness_name_44 Onset: 08-05-2015 Unclassified (1 source) [id number]_segoMuo ness_name_46 Onset: 08-05-2015 Unclassified (1 source) ref_[id number] [...] ness_name_46 Onset: 08-05-2015 Unclassified (1 source) ref_[id number] ness_name_35 Onset: 01-20-2015 Unclassified (1 source) ref_[id number]_rvgeUoi ness_name_36 Onset: 01-20-2015 Unclassified (1 source) ref_[id number] ness_name_44 Onset: 08-05-2015 Unclassified (1 source) ref_[id number]_iagnLfs ness_name_46 Onset: 08-05-2015 Unclassified (1 source) [id number]_pastIll ness_name_35 Onset: 01-20-2015 Unclassified (1 source) [id number]_pastIll ness_name_36 Onset: 01-20-2015 Unclassified (1 source) [id number]_pastIll ness_name_44 Onset: 08-05-2015 Unclassified (1 source) [id number]_pastIll ness_name_46 Onset: 08-05-2015 Unclassified (1 source) ref_[id number] ness_name_35 Onset: 01-20-2015 Unclassified (1 source) ref_[id number]_pkmrKrz ness_name_36 Onset: 01-20-2015 Unclassified (1 source) ref_[id number] ness_name_44 Onset: 08-05-2015 Unclassified (1 source) ref_[id number] ness_name_46 Onset: 08-05-2015 Unclassified (1 source) ref_[id number]_pastIll ness_name_35 Onset: 01-20-2015 Unclassified (1 source) ref_[id number]_pastIll ness_name_36 Onset: 01-20-2015 Unclassified (1 source) ref_[id number]_pastIll ness_name_44 Onset: 08-05-2015 Unclassified (1 source) ref_[id number]_pastIll ness_name_46 Onset: 08-05-2015 Unclassified (1 source) [id number]_rwqbCng ness_name_35 Onset: 01-20-2015 Unclassified (1 source) ref_[id number] ness_name_36 Onset: 01-20-2015 Unclassified (1 source) ref_[id number] ness_name_44 Onset: 08-05-2015 Unclassified (1 source) ref_[id number] ness_name_46 Onset: 08-05-2015 Unclassified (1 source) ref_[id number] ness_name_35 Onset: 01-20-2015 Unclassified (1 source) ref_[id number]_pankHju ness_name_36 Onset: 01-20-2015 Unclassified (1 source) ref_[id number]_eufsLox ness_name_44 Onset: 08-05-2015 Unclassified (1 source) ref_[id number]_obojFlz ness_name_46 Onset: 08-05-2015 Unclassified (1 source) ref_[id number] [...] ness_name_46 Onset: 08-05-2015 Unclassified (1 source) ref_[id number]_zvfzIoh ness_name_35 Onset: 01-20-2015 Unclassified (1 source) ref_[id number]_mwdzSim ness_name_36 Onset: 01-20-2015 Unclassified (1 source) ref_[id number]_tgflLlz ness_name_44 Onset: 08-05-2015 Unclassified (1 source) ref_[id number] ness_name_46 Onset: 08-05-2015 Unclassified (1 source) ref_[id number] [...] (1 source) [id number]_pastIll ness_name_46 Onset: 08-05-2015 Unclassified (1 source) ref_[id number]_pastIll ness_name_35 Onset: 01-20-2015 Unclassified (1 source) ref_[id number]_pastIll ness_name_36 Onset: 01-20-2015 Unclassified (1 source) ref_[id number]_pastIll ness_name_44 Onset: 08-05-2015 Unclassified (1 source) [id number]_Marcus ness_name_46 Onset: 08-05-2015 Results Test Name Value Interpretation Reference Range Facility Colonoscopyon 09-04-2023 [facility] 09-04-2023 L Specimen: [id number] Received: 09/04/23 Status: DAKOTAH Muro Num: [id number] Spec Type: Surgical Subm Dr: Paulette Voss DO Tissues: A Colon Biopsy (RANDOM COLON BX) Procedures: HE/2, Gross/Micro L4 Age/ Patient Sex Location Account Attending Physician Mariana Viveros 72/F LABELL [id number] Paulette Voss DO SPEC NUM: [id number] RECD: 09/04/23 STATUS: DAKOTAH MURO NUM: [id number] KRYSTAL: 09/04/[address]: Paulette Voss DO ENTERED: 09/04/[address]: Marleny,Lab SPEC TYPE: Surgical DEPT: DANIEL [...] in one cassette labeled A1. CPT Codes 05507 Specimen: [id number] Received: 09/04/23 Status: DAKOTAH Muro Num: [id number] Spec Type: Surgical Subm Dr: Paulette Voss DO Tissues: A Colon Biopsy (RANDOM COLON BX) Procedures: HE/2, Gross/Micro L4 Patient: Mariana Viveros [id number] (Continued) Signed (signatur e on file) Elias Diaz MD 09/08/232216 [facility] C DIFFICILE BY PCRon 024 C. difficile toxin genes WENDY+probe Ql (Stl) TOXIGENIC C DIFF Negative (qualifier value) 027 NAP1 Negative (qualifier value) Normal PRNEG [facility] Comment on above: Performed By: #### 8 2195-9 #### [facility] ([id number]) [address] [place] [address], [place], [place] [address] [place] [address] LAB ([id number]) [address] [place] [address], [address] [address] #### [id number] #### [facility] ([id number]) [address] [place] [address], [address] [place] [address] GI PANELon 08-16-2023 Gastrointestinal pathogens DNA and [...] SAPOVIRUS Not detected (qualifier value) Normal NDET [facility] Comment on above: Performed By: #### 8 2195-9 #### [facility] ([id number]) [address] [place] [address], [place] [address] [facility] ([id number]) [address], [address] [address] #### [id number] #### [facility] ([id number]) [address], [address] [address] Laboratory - Chemistry and C hemistry - challengeon 05-02-2023 Albumin (U) [Mass/Vol] < 12.00 Invalid Interpretation Code < 17.0 ug/mL [facility] Anion gap [Moles/Vol] 11 mmol/L Invalid Interpretation Code 10-20 [facility] Calcium [Mass/Vol] 9.20 mg/dL Invalid Interpretation Code 8.5-10.8 [facility] Chloride [Moles/Vol] 105.0 mmol/L Invalid Interpretation Code 100-112 [facility] Cholesterol [Mass/Vol] 259.0 mg/dL Invalid Interpretation Code 0-200 [facility] Cholesterol in HDL [Mass/Vol] 88.0 mg/dL Invalid Interpretation Code 50-100 [facility] Cholesterol in LDL [Mass/Vol] 151.0 mg/dL Invalid Interpretation Code 0-130 [facility] Cholesterol in VLDL [Mass/Vol] 20.0 mg/dL Invalid Interpretation Code 0-39 [facility] Cholesterol.total/Cho lesterol in HDL [Mass ratio] 3 {ratio} Invalid Interpretation Code [facility] CO2 [Moles/Vol] 31.0 mmol/L Invalid Interpretation Code 23-30 [facility] Creatinine (U) [Mass/Vol] 125.0 mg/dL Invalid Interpretation Code Not Estab. mg/dL [facility] Creatinine [Mass/Vol] 0.80 mg/dL Invalid Interpretation Code 0.5-1.5 [facility] Glucose [Mass/Vol] 111.0 mg/dL Invalid Interpretation Code 80-117 [facility] Potassium [Moles/Vol] 4.60 mmol/L Invalid Interpretation Code 3.5-5.3 [facility] Sodium [Moles/Vol] 142.0 mmol/L Invalid Interpretation Code 135-148 [facility] Triglyceride [Mass/Vol] 101.0 mg/dL Invalid Interpretation Code 30-150 [facility] Urea nitrogen [Mass/Vol] 17.0 mg/dL Invalid Interpretation Code 7-25 [facility] Urea nitrogen/Creatinine [Mass ratio] 21 mg/mg Invalid Interpretation Code 6-20 [facility] Laboratory - Hematology and Cell countson 05-02-2023 HbA1c (Bld) [Mass fraction] 6.0 % Invalid Interpretation Code 4.3-6.3 [facility] Laboratory - Urinalysison Glucose Test strip (U) [Mass/Vol] Negative Invalid Interpretation Code negative [facility] Protein (U) [Mass/Vol] Negative Invalid Interpretation Code negative [facility] No Panel Informationon 05-02 126.0 mg/dL Invalid Interpretation Code [facility] 77 Invalid Interpretation Code [facility] 115 Invalid Interpretation Code 70-117 [facility] Laboratory - Chemistry and C hemistry - challengeon 01-30-2023 Albumin (U) [Mass/Vol] 25.5 Invalid Interpretation Code <17.0 [facility] Albumin/Creatinine DL <= 20 mg/L (U) [Mass ratio] 10.9 mg/g Invalid Interpretation Code 0.0-30.0 [facility] Anion gap [Moles/Vol] 13 mmol/L Invalid Interpretation Code 10-20 [facility] Calcium [Mass/Vol] 9.10 mg/dL Invalid Interpretation Code 8.5-10.8 [facility] Chloride [Moles/Vol] 103.0 mmol/L Invalid Interpretation Code 100-112 [facility] CO2 [Moles/Vol] 28.0 mmol/L Invalid Interpretation Code 23-30 [facility] Creatinine (U) [Mass/Vol] 234.40 mg/dL Invalid Interpretation Code Not Estab. mg/dL [facility] Creatinine [Mass/Vol] 0.80 mg/dL Invalid Interpretation Code 0.5-1.5 [facility] Glucose [Mass/Vol] 176.0 mg/dL Invalid Interpretation Code 80-117 [facility] Potassium [Moles/Vol] 4.50 mmol/L Invalid Interpretation Code 3.5-5.3 [facility] Sodium [Moles/Vol] 139.0 mmol/L Invalid Interpretation Code 135-148 [facility] Urea nitrogen [Mass/Vol] 21.0 mg/dL Invalid Interpretation Code 7-25 [facility] Urea nitrogen/Creatinine [Mass ratio] 26 mg/mg Invalid Interpretation Code 6-20 [facility] Laboratory - Hematology and Cell countson 01-30-2023 HbA1c (Bld) [Mass fraction] 6.20 % Invalid Interpretation Code 4.3-6.3 [facility] Laboratory - Urinalysison Glucose Test strip (U) [Mass/Vol] Negative Invalid Interpretation Code negative [facility] Protein (U) [Mass/Vol] trace Invalid Interpretation Code negative [facility] No Panel Informationon 01-30 131.0 mg/dL Invalid Interpretation Code [facility] 77 Invalid Interpretation Code [facility] 173 Invalid Interpretation Code 70-117 [facility] No Panel Informationon 01-29 Tobacco smoking status Non-Smoker Invalid Interpretation Code [facility] POINT OF CARE GLUCOSEon 05-0 6-2023 Glucose [Mass/Vol] 189 mg/dL Critically high 74-106 T [facility] Comment on above: Performed By: #### P OCGLUC #### [facility] [address] [address] [address] Jenni Watson Laboratory - Chemistry and C hemistry - challengeon 10-31-2022 Anion gap [Moles/Vol] 12 mmol/L Invalid Interpretation Code 10-20 [facility] Calcium [Mass/Vol] 9.20 mg/dL Invalid Interpretation Code 8.5-10.8 [facility] Chloride [Moles/Vol] 103.0 mmol/L Invalid Interpretation Code 100-112 [facility] Cholesterol [Mass/Vol] 244.0 mg/dL Invalid Interpretation Code 0-200 [facility] Cholesterol in HDL [Mass/Vol] 85.0 mg/dL Invalid Interpretation Code 50-100 [facility] Cholesterol in LDL [Mass/Vol] 139.0 mg/dL Invalid Interpretation Code 0-130 [facility] Cholesterol in VLDL [Mass/Vol] 20.0 mg/dL Invalid Interpretation Code 0-39 [facility] Cholesterol.total/Cho lesterol in HDL [Mass ratio] 3 {ratio} Invalid Interpretation Code [facility] CO2 [Moles/Vol] 29.0 mmol/L Invalid Interpretation Code 23-30 [facility] Creatinine [Mass/Vol] 0.80 mg/dL Invalid Interpretation Code 0.5-1.5 [facility] Glucose [Mass/Vol] 187.0 mg/dL Invalid Interpretation Code 80-117 [facility] Potassium [Moles/Vol] 4.0 mmol/L Invalid Interpretation Code 3.5-5.3 [facility] Sodium [Moles/Vol] 140.0 mmol/L Invalid Interpretation Code 135-148 [facility] T4 [Mass/Vol] 9.84 ug/dL Invalid Interpretation Code 5.00-12.00 [facility] Triglyceride [Mass/Vol] 99.0 mg/dL Invalid Interpretation Code 30-150 [facility] TSH Qn 0.25 m[IU]/L Invalid Interpretation Code 0.50-4.00 [facility] Urea nitrogen [Mass/Vol] 16.0 mg/dL Invalid Interpretation Code 7-25 [facility] Urea nitrogen/Creatinine [Mass ratio] 20 mg/mg Invalid Interpretation Code 6-20 [facility] Laboratory - Hematology and Cell countson 10-31-2022 HbA1c (Bld) [Mass fraction] 6.20 % Invalid Interpretation Code 4.3-6.3 [facility] Laboratory - Urinalysison Glucose Test strip (U) [Mass/Vol] Negative Invalid Interpretation Code negative [facility] Protein (U) [Mass/Vol] trace Invalid Interpretation Code negative [facility] No Panel Informationon 10-31 Body mass index (BMI) [Percentile] Per age and sex 0.1 {percentile} Invalid Interpretation Code [facility] Xtrwhv-ahl-ohslec Per age and sex 0.1 {percentile} Invalid Interpretation Code [facility] 131.0 mg/dL Invalid Interpretation Code [facility] 77 Invalid Interpretation Code [facility] 188 Invalid Interpretation Code 70-117 [facility] Laboratory - Chemistry and C hemistry - challengeon 08-02-2022 Albumin (U) [Mass/Vol] < 12.00 Invalid Interpretation Code < 17.0 ug/mL [facility] ALT [Catalytic activity/Vol] 22.0 U/L Invalid Interpretation Code 0-50 [facility] Anion gap [Moles/Vol] 12 mmol/L Invalid Interpretation Code 10-20 [facility] Calcium [Mass/Vol] 9.20 mg/dL Invalid Interpretation Code 8.5-10.8 [facility] Chloride [Moles/Vol] 105.0 mmol/L Invalid Interpretation Code 100-112 [facility] Cholesterol [Mass/Vol] 272.0 mg/dL Invalid Interpretation Code 0-200 [facility] Cholesterol in HDL [Mass/Vol] 90.0 mg/dL Invalid Interpretation Code 50-100 [facility] Cholesterol in LDL [Mass/Vol] 166.0 mg/dL Invalid Interpretation Code 0-130 [facility] Cholesterol in VLDL [Mass/Vol] 16.0 mg/dL Invalid Interpretation Code 0-39 [facility] Cholesterol.total/Cho lesterol in HDL [Mass ratio] 3 {ratio} Invalid Interpretation Code [facility] CO2 [Moles/Vol] 30.0 mmol/L Invalid Interpretation Code 23-30 [facility] Creatinine (U) [Mass/Vol] 120.40 mg/dL Invalid Interpretation Code Not Estab. mg/dL [facility] Creatinine [Mass/Vol] 0.70 mg/dL Invalid Interpretation Code 0.5-1.5 [facility] GFR/1.73 sq M.predicted among non-blacks MDRD (S/P/Bld) [Vol rate/Area] 82 mL/min/{1.73_m2} Invalid Interpretation Code [facility] Glucose [Mass/Vol] 146.0 mg/dL Invalid Interpretation Code 80-117 [facility] Potassium [Moles/Vol] 4.80 mmol/L Invalid Interpretation Code 3.5-5.3 [facility] Sodium [Moles/Vol] 142.0 mmol/L Invalid Interpretation Code 135-148 [facility] Triglyceride [Mass/Vol] 80.0 mg/dL Invalid Interpretation Code 30-150 [facility] Urea nitrogen [Mass/Vol] 17.0 mg/dL Invalid Interpretation Code 7-25 [facility] Urea nitrogen/Creatinine [Mass ratio] 24 mg/mg Invalid Interpretation Code 6-20 [facility] Laboratory - Hematology and Cell countson 08-02-2022 HbA1c (Bld) [Mass fraction] 6.0 % Invalid Interpretation Code 4.3-6.3 [facility] No Panel Informationon 08-02 Body mass index (BMI) [Percentile] Per age and sex 0.1 {percentile} Invalid Interpretation Code [facility] Foaxzh-maz-gnwxse Per age and sex 0.1 {percentile} Invalid Interpretation Code [facility] 126.0 mg/dL Invalid Interpretation Code [facility] 158 Invalid Interpretation Code 70-117 [facility] CALCIUM, IONIC (POC)on 07-10 POC Ionized Calcium 1.18 mmol/L 1.15 - 1 .33 mmol/L [facility] Creatinine W/GFR [place] 07-10-2022 Creatinine [Mass/Vol] 0.55 mg/dL 0.51 - 1.19 mg/dL [facility] eGFR, POC mL/min/1.73m2 [facility] Comment on above: Effective Apr 16, 2022 [...] [Moles/Vol] 12 mmol/L 7 - 16 mmol/L [facility] Chloride [Moles/Vol] 104 mmol/L 98 - 10 7 mmol/L [facility] CO2 [Moles/Vol] 26 mmol/L 22 - 30 mmol/L [facility] Potassium [Moles/Vol] 4.2 mmol/L 3.5 - 4.5 mmol/L [facility] Sodium [Moles/Vol] 141 mmol/L 138 - 146 mmol/L [facility] Hemoglobin and hematocrit, b loodon 07-10-2022 Hematocrit (Bld) [Volume fraction] 39 % 36 - 46 % [facility] Hemoglobin (Bld) [Mass/Vol] 13.3 g/dL 12.0 - 16.0 g/dL [facility] No Panel Informationon 07-10 [facility] POCT Glucoseon 07-10-2022 Glucose [Mass/Vol] 141 mg/dL High 74 - 100 mg/dL [facility] Interpretation and review of laboratory results Abnormal [facility] POCT urea (BUN)on 07-10-2022 Urea nitrogen [Mass/Vol] 16 mg/dL 8 - 26 mg/dL [facility] Laboratory - Chemistry and C hemistry - challengeon 05-02-2022 Albumin (U) [Mass/Vol] 18.9 Invalid Interpretation Code <17.0 [facility] Albumin/Creatinine DL <= 20 mg/L (U) [Mass ratio] 11.5 mg/g Invalid Interpretation Code 0.0-30.0 [facility] Anion gap [Moles/Vol] 13 mmol/L Invalid Interpretation Code 10-20 [facility] Calcium [Mass/Vol] 9.30 mg/dL Invalid Interpretation Code 8.5-10.8 [facility] Chloride [Moles/Vol] 103.0 mmol/L Invalid Interpretation Code 100-112 [facility] Cholesterol [Mass/Vol] 250.0 mg/dL Invalid Interpretation Code 0-200 [facility] Cholesterol in HDL [Mass/Vol] 94.0 mg/dL Invalid Interpretation Code 50-100 [facility] Cholesterol in LDL [Mass/Vol] 144.0 mg/dL Invalid Interpretation Code 0-130 [facility] Cholesterol in VLDL [Mass/Vol] 12.0 mg/dL Invalid Interpretation Code 0-39 [facility] Cholesterol.total/Cho lesterol in HDL [Mass ratio] 3 {ratio} Invalid Interpretation Code [facility] CO2 [Moles/Vol] 28.0 mmol/L Invalid Interpretation Code 23-30 [facility] Creatinine (U) [Mass/Vol] 163.90 mg/dL Invalid Interpretation Code Not Estab. mg/dL [facility] Creatinine [Mass/Vol] 0.80 mg/dL Invalid Interpretation Code 0.5-1.5 [facility] GFR/1.73 sq M.predicted among non-blacks MDRD (S/P/Bld) [Vol rate/Area] 70 mL/min/{1.73_m2} Invalid Interpretation Code [facility] Glucose [Mass/Vol] 142.0 mg/dL Invalid Interpretation Code 80-117 [facility] Potassium [Moles/Vol] 4.40 mmol/L Invalid Interpretation Code 3.5-5.3 [facility] Sodium [Moles/Vol] 140.0 mmol/L Invalid Interpretation Code 135-148 [facility] Triglyceride [Mass/Vol] 61.0 mg/dL Invalid Interpretation Code 30-150 [facility] Urea nitrogen [Mass/Vol] 21.0 mg/dL Invalid Interpretation Code 7-25 [facility] Urea nitrogen/Creatinine [Mass ratio] 26 mg/mg Invalid Interpretation Code 6-20 [facility] Laboratory - Hematology and Cell countson 05-02-2022 HbA1c (Bld) [Mass fraction] 5.70 % Invalid Interpretation Code 4.3-6.3 [facility] - Urinalysison Glucose Test strip (U) [Mass/Vol] Negative Invalid Interpretation Code negative [facility] Protein (U) [Mass/Vol] trace Invalid Interpretation Code negative [facility] No Panel Informationon 05-02 117.0 mg/dL Invalid Interpretation Code [facility] 143 Invalid Interpretation Code 70-117 [facility] - Chemistry and C hemistry - challengeon 01-30-2022 Anion gap [Moles/Vol] 10 mmol/L Invalid Interpretation Code 10- [facility] Calcium [Mass/Vol] 9.20 mg/dL Invalid Interpretation Code 8.5-10.8 [facility] Chloride [Moles/Vol] 105.0 mmol/L Invalid Interpretation Code 100-112 [facility] Cholesterol [Mass/Vol] 266.0 mg/dL Invalid Interpretation Code 0-200 [facility] Cholesterol in HDL [Mass/Vol] 86.0 mg/dL Invalid Interpretation Code 50-100 [facility] Cholesterol in LDL [Mass/Vol] 157.0 mg/dL Invalid Interpretation Code 0-130 [facility] Cholesterol in VLDL [Mass/Vol] 23.0 mg/dL Invalid Interpretation Code 0-39 [facility] Cholesterol.total/Cho lesterol in HDL [Mass ratio] 3 {ratio} Invalid Interpretation Code [facility] CO2 [Moles/Vol] 29.0 mmol/L Invalid Interpretation Code 23-30 [facility] Creatinine [Mass/Vol] 0.80 mg/dL Invalid Interpretation Code 0.5-1.5 [facility] GFR/1.73 sq M.predicted among non-blacks MDRD (S/P/Bld) [Vol rate/Area] 70 mL/min/{1.73_m2} Invalid Interpretation Code [facility] Glucose [Mass/Vol] 154.0 mg/dL Invalid Interpretation Code 80-117 [facility] Potassium [Moles/Vol] 4.40 mmol/L Invalid Interpretation Code 3.5-5.3 [facility] Sodium [Moles/Vol] 140.0 mmol/L Invalid Interpretation Code 135-148 [facility] Triglyceride [Mass/Vol] 113.0 mg/dL Invalid Interpretation Code 30-150 [facility] Urea nitrogen [Mass/Vol] 18.0 mg/dL Invalid Interpretation Code 7-25 [facility] Urea nitrogen/Creatinine [Mass ratio] 23 mg/mg Invalid Interpretation Code 6-20 [facility] - Hematology and Cell countson 01-30-2022 HbA1c (Bld) [Mass fraction] 5.40 % Invalid Interpretation Code 4.3-6.3 [facility] No Panel Informationon 01-30 108.0 mg/dL Invalid Interpretation Code [facility] 174 Invalid Interpretation Code 70-117 [facility] - Chemistry and C hemistry - challengeon 10-31-2021 Albumin (U) [Mass/Vol] 22.0 Invalid Interpretation Code <17.0 [facility] Albumin/Creatinine DL <= 20 mg/L (U) [Mass ratio] 9.8 mg/g Invalid Interpretation Code 0.0-30.0 [facility] Anion gap [Moles/Vol] 14 mmol/L Invalid Interpretation Code 10-20 [facility] Bilirubin Ql (U) Negative Invalid Interpretation Code Negative [facility] Calcium [Mass/Vol] 9.30 mg/dL Invalid Interpretation Code 8.5-10.8 [facility] Chloride [Moles/Vol] 103.0 mmol/L Invalid Interpretation Code 100-112 [facility] CO2 [Moles/Vol] 28.0 mmol/L Invalid Interpretation Code 23-30 [facility] Creatinine (U) [Mass/Vol] 224.0 mg/dL Invalid Interpretation Code Not Estab. mg/dL [facility] Creatinine [Mass/Vol] 0.80 mg/dL Invalid Interpretation Code 0.5-1.5 [facility] GFR/1.73 sq M.predicted among non-blacks MDRD (S/P/Bld) [Vol rate/Area] 70 mL/min/{1.73_m2} Invalid Interpretation Code [facility] Glucose [Mass/Vol] 159.0 mg/dL Invalid Interpretation Code 80-117 [facility] Ketones Ql (U) 1+ Invalid Interpretation Code Negative [facility] pH (U) 6 [pH] Invalid Interpretation Code 5.0-9.0 [facility] Potassium [Moles/Vol] 4.40 mmol/L Invalid Interpretation Code 3.5-5.3 [facility] Sodium [Moles/Vol] 141.0 mmol/L Invalid Interpretation Code 135-148 [facility] Specific gravity (U) [Rel density] 1.020 Invalid Interpretation Code 1.003-1.030 [facility] T4 [Mass/Vol] 7.37 ug/dL Invalid Interpretation Code 5.00-12.00 [facility] TSH Qn 0.92 m[IU]/L Invalid Interpretation Code 0.50-4.00 [facility] Urea nitrogen [Mass/Vol] 19.0 mg/dL Invalid Interpretation Code 7-25 [facility] Urea nitrogen/Creatinine [Mass ratio] 24 mg/mg Invalid Interpretation Code 6-20 [facility] Urobilinogen (U) [Mass/Vol] normal Invalid Interpretation Code normal [facility] - Hematology and Cell countson 10-31-2021 HbA1c (Bld) [Mass fraction] 5.90 % Invalid Interpretation Code 4.3-6.3 [facility] Hemoglobin Ql (U) Trace Invalid Interpretation Code Negative [facility] - Specimen inform ationon 10-31-2021 Clarity (U) Sl. Cloudy Invalid Interpretation Code Clear [facility] Color (U) rafael Invalid Interpretation Code yellow [facility] - Urinalysison Glucose Test strip (U) [Mass/Vol] Negative Invalid Interpretation Code Negative [facility] Leukocyte esterase Test strip Ql (U) Trace Invalid Interpretation Code Negative [facility] Nitrite Ql (U) Negative Invalid Interpretation Code Negative [facility] Protein Ql (U) 2+ Invalid Interpretation Code Negative [facility] No Panel Informationon 10-31 123.0 mg/dL Invalid Interpretation Code [facility] 175 Invalid Interpretation Code 70-117 [facility] - Chemistry and C hemistry - challengeon 08-02-2021 Albumin (U) [Mass/Vol] < 12.00 Invalid Interpretation Code < 17.0 ug/mL [facility] Anion gap [Moles/Vol] 11 mmol/L Invalid Interpretation Code 10-20 [facility] Bilirubin Ql (U) Negative Invalid Interpretation Code Negative [facility] Calcium [Mass/Vol] 9.20 mg/dL Invalid Interpretation Code 8.5-10.8 [facility] Chloride [Moles/Vol] 104.0 mmol/L Invalid Interpretation Code 100-112 [facility] Cholesterol [Mass/Vol] 274.0 mg/dL Invalid Interpretation Code 0-200 [facility] Cholesterol in HDL [Mass/Vol] 88.0 mg/dL Invalid Interpretation Code 50-100 [facility] Cholesterol in LDL [Mass/Vol] 165.0 mg/dL Invalid Interpretation Code 0-130 [facility] Cholesterol in VLDL [Mass/Vol] 21.0 mg/dL Invalid Interpretation Code 0-39 [facility] Cholesterol.total/Cho lesterol in HDL [Mass ratio] 3 {ratio} Invalid Interpretation Code [facility] CO2 [Moles/Vol] 30.0 mmol/L Invalid Interpretation Code 23-30 [facility] Creatinine (U) [Mass/Vol] 159.70 mg/dL Invalid Interpretation Code Not Estab. mg/dL [facility] Creatinine [Mass/Vol] 0.80 mg/dL Invalid Interpretation Code 0.5-1.5 [facility] GFR/1.73 sq M.predicted among non-blacks MDRD (S/P/Bld) [Vol rate/Area] 70 mL/min/{1.73_m2} Invalid Interpretation Code [facility] Glucose [Mass/Vol] 144.0 mg/dL Invalid Interpretation Code 80-117 [facility] Ketones Ql (U) 2+ Invalid Interpretation Code Negative [facility] pH (U) 7 [pH] Invalid Interpretation Code 5.0-9.0 [facility] Potassium [Moles/Vol] 4.80 mmol/L Invalid Interpretation Code 3.5-5.3 [facility] Sodium [Moles/Vol] 140.0 mmol/L Invalid Interpretation Code 135-148 [facility] Specific gravity (U) [Rel density] 1.010 Invalid Interpretation Code 1.003-1.030 [facility] T4 [Mass/Vol] 8.12 ug/dL Invalid Interpretation Code 5.00-12.00 [facility] Triglyceride [Mass/Vol] 107.0 mg/dL Invalid Interpretation Code 30-150 [facility] TSH Qn 0.37 m[IU]/L Invalid Interpretation Code 0.50-4.00 [facility] Urea nitrogen [Mass/Vol] 19.0 mg/dL Invalid Interpretation Code 7-25 [facility] Urea nitrogen/Creatinine [Mass ratio] 24 mg/mg Invalid Interpretation Code 6-20 [facility] Urobilinogen (U) [Mass/Vol] normal Invalid Interpretation Code normal [facility] - Hematology and Cell countson 08-02-2021 HbA1c (Bld) [Mass fraction] 6.10 % Invalid Interpretation Code 4.3-6.3 [facility] Hemoglobin Ql (U) Negative Invalid Interpretation Code Negative [facility] - Specimen inform ationon 08-02-2021 Clarity (U) Sl. Cloudy Invalid Interpretation Code Clear [facility] Color (U) rafael Invalid Interpretation Code yellow [facility] - Urinalysison Glucose Test strip (U) [Mass/Vol] Negative Invalid Interpretation Code Negative [facility] Leukocyte esterase Test strip Ql (U) Negative Invalid Interpretation Code Negative [facility] Nitrite Ql (U) Negative Invalid Interpretation Code Negative [facility] Protein Ql (U) 1+ Invalid Interpretation Code Negative [facility] No Panel Informationon 08-02 128.0 mg/dL Invalid Interpretation Code [facility] 146 Invalid Interpretation Code 70-117 [facility] Laboratory - Chemistry and C hemistry - challengeon 05-02-2021 Albumin (U) [Mass/Vol] 86.2 Invalid Interpretation Code <17.0 [facility] Albumin/Creatinine DL <= 20 mg/L (U) [Mass ratio] 45.3 mg/g Invalid Interpretation Code 0.0-30.0 [facility] Anion gap [Moles/Vol] 14 mmol/L Invalid Interpretation Code 10-20 [facility] Calcium [Mass/Vol] 9.20 mg/dL Invalid Interpretation Code 8.5-10.8 [facility] Chloride [Moles/Vol] 106.0 mmol/L Invalid Interpretation Code 100-112 [facility] CO2 [Moles/Vol] 27.0 mmol/L Invalid Interpretation Code 23-30 [facility] Creatinine (U) [Mass/Vol] 190.10 mg/dL Invalid Interpretation Code Not Estab. mg/dL [facility] Creatinine [Mass/Vol] 0.70 mg/dL Invalid Interpretation Code 0.5-1.5 [facility] GFR/1.73 sq M.predicted among non-blacks MDRD (S/P/Bld) [Vol rate/Area] 82 mL/min/{1.73_m2} Invalid Interpretation Code [facility] Glucose [Mass/Vol] 204.0 mg/dL Invalid Interpretation Code 80-117 [facility] Potassium [Moles/Vol] 4.80 mmol/L Invalid Interpretation Code 3.5-5.3 [facility] Sodium [Moles/Vol] 142.0 mmol/L Invalid Interpretation Code 135-148 [facility] T4 [Mass/Vol] 8.63 ug/dL Invalid Interpretation Code 5.00-12.00 [facility] TSH Qn 0.12 m[IU]/L Invalid Interpretation Code 0.50-4.00 [facility] Urea nitrogen [Mass/Vol] 25.0 mg/dL Invalid Interpretation Code 7-25 [facility] Urea nitrogen/Creatinine [Mass ratio] 36 mg/mg Invalid Interpretation Code 6-20 [facility] - Hematology and Cell countson 05-02-2021 HbA1c (Bld) [Mass fraction] 6.10 % Invalid Interpretation Code 4.3-6.3 [facility] No Panel Informationon 05-02 128.0 mg/dL Invalid Interpretation Code [facility] 194 Invalid Interpretation Code 70-117 [facility] - Chemistry and C hemistry - challengeon 02-02-2021 Albumin (U) [Mass/Vol] < 12.00 Invalid Interpretation Code < 17.0 ug/mL [facility] Anion gap [Moles/Vol] 10 mmol/L Invalid Interpretation Code 10-20 [facility] Calcium [Mass/Vol] 9.10 mg/dL Invalid Interpretation Code 8.5-10.8 [facility] Chloride [Moles/Vol] 105.0 mmol/L Invalid Interpretation Code 100-112 [facility] Cholesterol [Mass/Vol] 266.0 mg/dL Invalid Interpretation Code 0-200 [facility] Cholesterol in HDL [Mass/Vol] 89.0 mg/dL Invalid Interpretation Code 50-100 [facility] Cholesterol in LDL [Mass/Vol] 163.0 mg/dL Invalid Interpretation Code 0-130 [facility] Cholesterol in VLDL [Mass/Vol] 14.0 mg/dL Invalid Interpretation Code 0-39 [facility] Cholesterol.total/Cho lesterol in HDL [Mass ratio] 3 {ratio} Invalid Interpretation Code [facility] CO2 [Moles/Vol] 32.0 mmol/L Invalid Interpretation Code 23-30 [facility] Creatinine (U) [Mass/Vol] 116.30 mg/dL Invalid Interpretation Code Not Estab. mg/dL [facility] Creatinine [Mass/Vol] 0.70 mg/dL Invalid Interpretation Code 0.5-1.5 [facility] GFR/1.73 sq M.predicted among non-blacks MDRD (S/P/Bld) [Vol rate/Area] 82 mL/min/{1.73_m2} Invalid Interpretation Code [facility] Glucose [Mass/Vol] 162.0 mg/dL Invalid Interpretation Code 80-117 [facility] Potassium [Moles/Vol] 4.80 mmol/L Invalid Interpretation Code 3.5-5.3 [facility] Sodium [Moles/Vol] 142.0 mmol/L Invalid Interpretation Code 135-148 [facility] Triglyceride [Mass/Vol] 70.0 mg/dL Invalid Interpretation Code 30-150 [facility] Urea nitrogen [Mass/Vol] 24.0 mg/dL Invalid Interpretation Code 7-25 [facility] Urea nitrogen/Creatinine [Mass ratio] 34 mg/mg Invalid Interpretation Code 6-20 [facility] - Hematology and Cell countson 02-02-2021 HbA1c (Bld) [Mass fraction] 6.50 % Invalid Interpretation Code 4.3-6.3 [facility] - Urinalysison Glucose Test strip (U) [Mass/Vol] Negative Invalid Interpretation Code negative [facility] Protein (U) [Mass/Vol] trace Invalid Interpretation Code negative [facility] No Panel Informationon 02-02 140.0 mg/dL Invalid Interpretation Code [facility] 158 Invalid Interpretation Code 70-117 [facility] - Chemistry and C hemistry - challengeon 10-20-2020 T4 [Mass/Vol] 8.07 ug/dL Invalid Interpretation Code 5.00-12.00 [facility] TSH Qn 0.24 m[IU]/L Invalid Interpretation Code 0.50-4.00 [facility] - Hematology and Cell countson 10-20-2020 Erythrocyte distribution width (RBC) [Ratio] 13.60 % Invalid Interpretation Code 11.5-15.5 [facility] HbA1c (Bld) [Mass fraction] 6.40 % Invalid Interpretation Code 4.3-6.3 [facility] Hematocrit (Bld) [Volume fraction] 37.90 % Invalid Interpretation Code 35.7-47.1 [facility] Hemoglobin (Bld) [Mass/Vol] 12.30 g/dL Invalid Interpretation Code 11.9-15.7 [facility] MCH (RBC) [Entitic mass] 29.40 pg Invalid Interpretation Code 23.2-33.3 [facility] MCHC (RBC) [Mass/Vol] 32.50 g/dL Invalid Interpretation Code 32.0-36.0 [facility] MCV (RBC) [Entitic vol] 90.50 fL Invalid Interpretation Code 83.4-101.4 [facility] Platelet mean volume (Bld) [Entitic vol] 10.80 fL Invalid Interpretation Code 8.3-11.5 [facility] Platelets (Bld) [#/Vol] 213.0 10*3/uL Invalid Interpretation Code 150-400 [facility] RBC (Bld) [#/Vol] 4.190 10*6/uL Invalid Interpretation Code 3.72-5.24 [facility] WBC (Bld) [#/Vol] 4.90 10*3/uL Invalid Interpretation Code 3.9-10.3 [facility] - Urinalysison Glucose Test strip (U) [Mass/Vol] Negative Invalid Interpretation Code negative [facility] Protein (U) [Mass/Vol] Negative Invalid Interpretation Code negative [facility] No Panel Informationon 10-20 137.0 mg/dL Invalid Interpretation Code [facility] 146.0 mg/dL Invalid Interpretation Code <140 [facility] 176 Invalid Interpretation Code 70-117 [facility] CNOVSPon 10-06-2020 [facility] Visit (SP) Office ([facility]U) ---- MARIANA VIVEROS ([id number]) 1950 F Date Time Provider Department 10/06/20 [...] hemangioma : Discussed with GI oncology on [facility] surgical oncology with plan to offer [...] with continue (more content not included)... Normal [facility] MARIANA VIVEROS ([id number]) 1950 F Date Time Provider Department 10/04/20 [...] - Unknown LATEX 05/25/2019 16 - Unknown [id number] REDUCTASE INHIBIT*05/25/2019 16 - Unknown ADHESIVE TAPE [...] by KAREEM CRUZ RN on 10/04/20 Normal [facility] CEAon 09-30-2020 CEA 2.8 ng/mL Normal 0.0-2.9 [facility] Comment on above: Result Comment: Test analyzed by the [employer] DxI method. Performed By: #### C EA #### [facility] [address] [place], [place] [address] CT ABD/PEL W IVCONon 021 CT ABD/PEL W IVCON * * *Final Report* * * DATE OF EXAM: Sep 30 2020 11:35AM [facility] 0530 - CT ABD/PEL W [...] performed concurrently and will be dictated separately. Pattern Perforating Machine Operator (topogram) images: No additional findings. IMPRESSION: 1. [...] any questions regarding this interpretation, please call [phone]. If you are unable to reach us at the number above, please feel free to contact [facility] at [phone]. [id number] ACN Normal [facility] CT CHEST W IVCONon 1 CT CHEST W IVCON * * *Final Report* * * DATE OF EXAM: Sep 30 2020 11:35AM [facility] 0539 - CT CHEST W [...] performed concurrently and will be dictated separately. Pattern Perforating Machine Operator (topogram) images: No additional findings. IMPRESSION: Stable [...] any questions regarding this interpretation, please call [phone]. If you are unable to reach us at the number above, please feel free to contact [facility] at [phone]. [id number] ACN Normal [facility] Comp Metabolic Panelon 09-30 Albumin [Mass/Vol] 4.2 g/dL Normal 3.9-4.9 [facility] ALP [Catalytic activity/Vol] 128 U/L High 34-123 [facility] ALT [Catalytic activity/Vol] 25 U/L Normal 7-38 [facility] Anion gap [Moles/Vol] 5 mmol/L Low 9-18 [facility] AST [Catalytic activity/Vol] 27 U/L Normal 13-35 [facility] Bilirubin [Mass/Vol] 0.6 mg/dL Normal 0.2-1.3 [facility] Calcium [Mass/Vol] 9.5 mg/dL Normal 8.5-10.2 [facility] Chloride [Moles/Vol] 105 mmol/L Normal 97-105 [facility] CO2 [Moles/Vol] 32 mmol/L High 22-30 [facility] Creatinine [Mass/Vol] 0.67 mg/dL Normal 0.58-0.96 [facility] eGFR- Amer. >60 Normal [facility] eGFR-All Other Races >60 Normal [facility] Comment on above: Result Comment: eGFR [...] GFR. Glucose [Mass/Vol] 190 mg/dL High 74-99 [facility] Comment on above: Result Comment: The [place] [employer] (ADA) provides guidance for cutoff [...] Standards of Medical Care in Diabetes 2016, [place] [employer]. Diabetes Care. 2016.39(Suppl 1). Potassium [Moles/Vol] 4.8 mmol/L Normal 3.7-5.1 [facility] Protein [Mass/Vol] 6.6 g/dL Normal 6.3-8.0 [facility] Sodium [Moles/Vol] 142 mmol/L Normal 136-144 [facility] Urea nitrogen [Mass/Vol] 21 mg/dL Normal 7-21 [facility] Remote CBCDIF (for [facility] use o nly)on 09-30-2020 Abs Baso 0.04 k/uL Normal <0.11 [facility] Abs [place] 0.44 k/uL Normal <0.87 [facility] Abs Neut 4.94 k/uL Normal 1.45-7.50 [facility] Absolute nRBC <0.01 Normal <0.01 [facility] Basophils/100 WBC (Bld) 0.6 % Normal [facility] DTYPE Auto Diff Normal [facility] Eosinophils (Bld) [#/Vol] 0.06 10*3/uL Normal <0.46 [facility] Eosinophils/100 WBC (Bld) 0.9 % Normal [facility] Erythrocyte distribution width (RBC) [Ratio] 13.5 % Normal 11.5-15.0 [facility] Hematocrit (Bld) [Volume fraction] 39.0 % Normal 36.0-46.0 [facility] Hemoglobin (Bld) [Mass/Vol] 12.9 g/dL Normal 11.5-15.5 [facility] Lymphocytes (Bld) [#/Vol] 1.46 10*3/uL Normal 1.00-4.00 [facility] Lymphocytes/100 WBC (Bld) 21.0 % Normal [facility] MCH 29.6 pG Normal 26.0-34.0 [facility] MCHC (RBC) [Mass/Vol] 33.1 g/dL Normal 30.5-36.0 [facility] MCV (RBC) [Entitic vol] 89.4 fL Normal 80.0-100.0 [facility] Monocytes/100 WBC (Bld) 6.3 % Normal [facility] Neutrophils/100 WBC (Bld) 71.2 % Normal [facility] NRBCs 0.0 /100 WBC Normal 0 [facility] Platelet mean volume (Bld) [Entitic vol] 10.4 fL Normal 9.0-12.7 [facility] Platelets (Bld) [#/Vol] 184 10*3/uL Normal 150-400 [facility] RBC (Bld) [#/Vol] 4.36 10*6/uL Normal 3.90-5.20 [facility] WBC (Bld) [#/Vol] 6.96 10*3/uL Normal 3.70-11.00 [facility]acon 07-21-2020 Cholesterol [Mass/Vol] 230.0 mg/dL Invalid Interpretation Code 0-200 [facility] Cholesterol in HDL [Mass/Vol] 75.0 mg/dL Invalid Interpretation Code 50-100 [facility] Cholesterol in LDL [Mass/Vol] 139.0 mg/dL Invalid Interpretation Code 0-130 [facility] Triglyceride [Mass/Vol] 82.0 mg/dL Invalid Interpretation Code 30-150 [facility] CoV2 IgG Ab,Son 07-21-2020 Date of onset [id number] Normal [facility] Comment on above: Performed By: #### C [id number] #### [facility] [address] [place] [address], [place] [address] Employed in healthcare? Unknown Normal [facility] Comment on above: Performed By: #### C [id number] #### [facility] [address] [address] Group care resident? Unknown Normal [facility] Comment on above: Performed By: #### C [id number] #### [facility] [address] [place] [address], [place] [address] Hospitalized due to COVID-19? Unknown Normal [facility] Comment on above: Performed By: #### C [id number] #### [address] [place] [address] In ICU? Unknown Normal [facility] Comment on above: Performed By: #### C [id number] #### [address] [place] [address] Is this the first test for COVID? Unknown Normal [facility] Comment on above: Performed By: #### C [id number] #### [address] [place] [address] status? Unknown Normal [facility] Comment on above: Performed By: #### C [id number] #### [address] [place] [address] SARS-CoV-2 IgG Ab Reactive Abnormal Non-Reactive [facility] Comment on above: Result Comment: SARS -CoV-2 IgG antibodies detected. Results suggest recent or prior infection with SARS-CoV-2. Reactive results may also be due to past or present infection with [id number] coronavirus strains, such as coronavirus HKU1, NL63, [...] the ACCESS SARS-CoV-2 IgG Antibody assay by [employer], which has received Emergency Use Authorization (EUA) by the U.S. Food and Drug Administration. Fact sheets for this Emergency Use Authorization (EUA) assay can be found at the following locations: For Healthcare Providers: https://Astech/download/wsr-750790 For Patients: https://Astech/download/wsr-921101 Performed By: #### C [id number] #### [address] [address] Symptomatic as defined by CDC? Unknown Normal [facility] Comment on above: Performed By: #### C [id number] #### [address] [address] Laboratory - Chemistry and C hemistry - challengeon 07-21-2020 Cholesterol.total/Cho lesterol in HDL [Mass ratio] 3 {ratio} Invalid Interpretation Code [facility] - Urinalysison Glucose Test strip (U) [Mass/Vol] Negative Invalid Interpretation Code negative [facility] Protein (U) [Mass/Vol] Negative Invalid Interpretation Code negative [facility] Metabolic Panelon 07-21-2020 Anion gap [Moles/Vol] 11 mmol/L Invalid Interpretation Code 10-20 [facility] Calcium [Mass/Vol] 9.10 mg/dL Invalid Interpretation Code 8.5-10.8 [facility] Chloride [Moles/Vol] 104.0 mmol/L Invalid Interpretation Code 100-112 [facility] CO2 [Moles/Vol] 29.0 mmol/L Invalid Interpretation Code 23-30 [facility] Creatinine [Mass/Vol] 0.80 mg/dL Invalid Interpretation Code 0.5-1.5 [facility] GFR/1.73 sq M predicted among non-blacks MDRD (S/P/Bld) [Vol rate/Area] 71 mL/min/{1.73_m2} Invalid Interpretation Code [employer] Glucose [Mass/Vol] 188 mg/dL 70-117 [facility] [employer] Glucose [Mass/Vol] 189.0 mg/dL Invalid Interpretation Code 80-117 [employer] HbA1c (Bld) [Mass fraction] 6.50 % Invalid Interpretation Code 4.3-6.3 [employer] Potassium [Moles/Vol] 4.70 mmol/L Invalid Interpretation Code 3.5-5.3 [employer] Sodium [Moles/Vol] 139.0 mmol/L Invalid Interpretation Code 135-148 [employer] Urea nitrogen [Mass/Vol] 15.0 mg/dL Invalid Interpretation Code 7-25 [employer] Urea nitrogen/Creatinine [Mass ratio] 19 mg/mg Invalid Interpretation Code 6-20 [employer] No Panel Informationon 07-21 188 Invalid Interpretation Code 70-117 [employer] Otheron 07-21-2020 Cholesterol in VLDL [Mass/Vol] 16.0 mg/dL Invalid Interpretation Code 0-39 [employer] Cholesterol.total/Cho lesterol in HDL [Mass ratio] 3 (calc) [employer] Glucose Test strip (U) [Mass/Vol] Negative negative [employer] 140.0 mg/dL Invalid Interpretation Code [facility] Thyroidon 07-21-2020 T4 [Mass/Vol] 9.72 ug/dL Invalid Interpretation Code 5.00-12.00 [employer] TSH Qn 0.10 m[IU]/L Invalid Interpretation Code 0.50-4.00 [employer] Urinalysison 07-21-2020 Protein (U) [Mass/Vol] Negative negative [employer] Cardiacon 04-14-2020 Cholesterol [Mass/Vol] 245.0 mg/dL Invalid Interpretation Code 0-200 [employer] Cholesterol in HDL [Mass/Vol] 82.0 mg/dL Invalid Interpretation Code 50-100 [employer] Cholesterol in LDL [Mass/Vol] 146.0 mg/dL Invalid Interpretation Code 0-130 [employer] Triglyceride [Mass/Vol] 83.0 mg/dL Invalid Interpretation Code 30-150 [employer] Laboratory - Chemistry and C hemistry - challengeon 04-14-2020 Cholesterol.total/Cho lesterol in HDL [Mass ratio] 3 {ratio} Invalid Interpretation Code [facility] - Urinalysison Glucose Test strip (U) [Mass/Vol] Negative Invalid Interpretation Code negative [employer] Protein (U) [Mass/Vol] Negative Invalid Interpretation Code negative [employer] Metabolic Panelon 04-14-2020 Anion gap [Moles/Vol] 14 mmol/L Invalid Interpretation Code 10-20 [employer] Calcium [Mass/Vol] 9.20 mg/dL Invalid Interpretation Code 8.5-10.8 [facility] Chloride [Moles/Vol] 104.0 mmol/L Invalid Interpretation Code 100-112 [facility] CO2 [Moles/Vol] 29.0 mmol/L Invalid Interpretation Code 23-30 [facility] Creatinine [Mass/Vol] 0.60 mg/dL Invalid Interpretation Code 0.5-1.5 [facility] GFR/1.73 sq M predicted among non-blacks MDRD (S/P/Bld) [Vol rate/Area] 98 mL/min/{1.73_m2} Invalid Interpretation Code [facility] Glucose [Mass/Vol] 133.0 mg/dL Invalid Interpretation Code 80-117 [facility] HbA1c (Bld) [Mass fraction] 6.50 % Invalid Interpretation Code 4.3-6.3 [facility] Potassium [Moles/Vol] 4.70 mmol/L Invalid Interpretation Code 3.5-5.3 [facility] Sodium [Moles/Vol] 142.0 mmol/L Invalid Interpretation Code 135-148 [facility] Urea nitrogen [Mass/Vol] 17.0 mg/dL Invalid Interpretation Code 7-25 [facility] Urea nitrogen/Creatinine [Mass ratio] 28 mg/mg Invalid Interpretation Code 6-20 [facility] Otheron 04-14-2020 Cholesterol in VLDL [Mass/Vol] 17.0 mg/dL Invalid Interpretation Code 0-39 [facility] Cholesterol.total/Cho lesterol in HDL [Mass ratio] 3 (calc) [facility] Glucose Test strip (U) [Mass/Vol] Negative negative [facility] Urate [Mass/Vol] 2.80 mg/dL Invalid Interpretation Code 2.4-7.0 [employer] 140.0 mg/dL Invalid Interpretation Code [facility] Urinalysison 04-14-2020 Protein (U) [Mass/Vol] Negative negative [facility] [facility] Laboratory - Chemistry and C hemistry - challengeon 01-14-2020 Albumin (U) [Mass/Vol] < 12.00 Invalid Interpretation Code < 17.0 ug/mL [employer] Anion gap [Moles/Vol] 15 mmol/L Invalid Interpretation Code 10-20 [employer] Calcium [Mass/Vol] 8.90 mg/dL Invalid Interpretation Code 8.5-10.8 [employer] Chloride [Moles/Vol] 102.0 mmol/L Invalid Interpretation Code 100-112 [employer] CO2 [Moles/Vol] 29.0 mmol/L Invalid Interpretation Code 23-30 [employer] Creatinine (U) [Mass/Vol] 20.10 mg/dL Invalid Interpretation Code Not Estab. mg/dL [employer] Creatinine [Mass/Vol] 0.60 mg/dL Invalid Interpretation Code 0.5-1.5 [employer] GFR/1.73 sq M.predicted among non-blacks MDRD (S/P/Bld) [Vol rate/Area] 98 mL/min/{1.73_m2} Invalid Interpretation Code [facility] Glucose [Mass/Vol] 148.0 mg/dL Invalid Interpretation Code 80-117 [employer] Potassium [Moles/Vol] 4.70 mmol/L Invalid Interpretation Code 3.5-5.3 [facility] Sodium [Moles/Vol] 141.0 mmol/L Invalid Interpretation Code 135-148 [facility] T4 [Mass/Vol] 9.01 ug/dL Invalid Interpretation Code 5.00-12.00 [facility] TSH Qn 0.24 m[IU]/L Invalid Interpretation Code 0.50-4.00 [facility] Urea nitrogen [Mass/Vol] 16.0 mg/dL Invalid Interpretation Code 7-25 [facility] Urea nitrogen/Creatinine [Mass ratio] 27 mg/mg Invalid Interpretation Code 6-20 [facility] - Hematology and Cell countson 01-14-2020 HbA1c (Bld) [Mass fraction] 6.80 % Invalid Interpretation Code 4.3-6.3 [facility] - Urinalysison Glucose Test strip (U) [Mass/Vol] Negative Invalid Interpretation Code negative [facility] Protein (U) [Mass/Vol] Negative Invalid Interpretation Code negative [facility] No Panel Informationon 01-13 148.0 mg/dL Invalid Interpretation Code [facility] 08-21-2019 Cholesterol [Mass/Vol] 283.0 mg/dL Invalid Interpretation Code 0-200 [facility] Cholesterol in HDL [Mass/Vol] 87.0 mg/dL Invalid Interpretation Code 50-100 [facility] Cholesterol in LDL [Mass/Vol] 177.0 mg/dL Invalid Interpretation Code 0-130 [facility] Triglyceride [Mass/Vol] 97.0 mg/dL Invalid Interpretation Code 30-150 [facility] - Urinalysison Glucose Test strip (U) [Mass/Vol] Negative Invalid Interpretation Code negative [facility] Protein (U) [Mass/Vol] Negative Invalid Interpretation Code negative [facility] Metabolic Panelon 08-21-2019 Anion gap [Moles/Vol] 14 mmol/L Invalid Interpretation Code 10-20 [facility] Calcium [Mass/Vol] 9.30 mg/dL Invalid Interpretation Code 8.5-10.8 [facility] Chloride [Moles/Vol] 103.0 mmol/L Invalid Interpretation Code 100-112 [facility] CO2 [Moles/Vol] 28.0 mmol/L Invalid Interpretation Code 23-30 [facility] Creatinine [Mass/Vol] 0.70 mg/dL Invalid Interpretation Code 0.5-1.5 [facility] GFR/1.73 sq M predicted among non-blacks MDRD (S/P/Bld) [Vol rate/Area] 83 mL/min/{1.73_m2} Invalid Interpretation Code [facility] Glucose [Mass/Vol] 151.0 mg/dL Invalid Interpretation Code 80-117 [facility] HbA1c (Bld) [Mass fraction] 7.0 % Invalid Interpretation Code 4.3-6.3 [facility] Potassium [Moles/Vol] 4.50 mmol/L Invalid Interpretation Code 3.5-5.3 [facility] Sodium [Moles/Vol] 140.0 mmol/L Invalid Interpretation Code 135-148 [facility] Urea nitrogen [Mass/Vol] 18.0 mg/dL Invalid Interpretation Code 7-25 [facility] Urea nitrogen/Creatinine [Mass ratio] 26 mg/mg Invalid Interpretation Code 6-20 [facility] Otheron 08-21-2019 Cholesterol in VLDL [Mass/Vol] 19.0 mg/dL Invalid Interpretation Code 0-39 [facility] Cholesterol.total/Cho lesterol in HDL [Mass ratio] 3 {ratio} Invalid Interpretation Code [facility] Glucose Test strip (U) [Mass/Vol] Negative negative [facility] 154 [facility] 154.0 mg/dL Invalid Interpretation Code [facility] Urinalysison 08-21-2019 Protein (U) [Mass/Vol] Negative negative [facility] - Urinalysison Glucose Test strip (U) [Mass/Vol] Negative Invalid Interpretation Code negative [facility] Protein (U) [Mass/Vol] Negative Invalid Interpretation Code negative [facility] Metabolic Panelon 05-22-2019 Anion gap [Moles/Vol] 14 mmol/L Invalid Interpretation Code 10-20 [facility] Calcium [Mass/Vol] 9.50 mg/dL Invalid Interpretation Code 8.5-10.8 [facility] Chloride [Moles/Vol] 103.0 mmol/L Invalid Interpretation Code 100-112 [facility] CO2 [Moles/Vol] 31.0 mmol/L Invalid Interpretation Code 23-30 [facility] Creatinine [Mass/Vol] 0.70 mg/dL Invalid Interpretation Code 0.5-1.5 [facility] GFR/1.73 sq M predicted among non-blacks MDRD (S/P/Bld) [Vol rate/Area] 83 mL/min/{1.73_m2} Invalid Interpretation Code [facility] Glucose [Mass/Vol] 77.0 mg/dL Invalid Interpretation Code 80-117 [facility] HbA1c (Bld) [Mass fraction] 6.60 % Invalid Interpretation Code 4.3-6.3 [facility] Potassium [Moles/Vol] 4.60 mmol/L Invalid Interpretation Code 3.5-5.3 [facility] Sodium [Moles/Vol] 143.0 mmol/L Invalid Interpretation Code 135-148 [facility] Urea nitrogen [Mass/Vol] 14.0 mg/dL Invalid Interpretation Code 7-25 [facility] Urea nitrogen/Creatinine [Mass ratio] 20 mg/mg Invalid Interpretation Code 6-20 [facility] Otheron 05-22-2019 Albumin (U) [Mass/Vol] 13.0 Invalid Interpretation Code <17.0 [facility] Glucose Test strip (U) [Mass/Vol] Negative negative [facility] See Above Invalid Interpretation Code 0-0 [facility] 143 [facility] 143.0 mg/dL Invalid Interpretation Code [facility] Urinalysison 05-22-2019 Albumin/Creatinine DL <= 20 mg/L (U) [Mass ratio] 6.6 mg/g Invalid Interpretation Code 0.0-30.0 [facility] Creatinine (U) [Mass/Vol] 197.80 mg/dL Invalid Interpretation Code Not Estab. mg/dL [facility] Protein (U) [Mass/Vol] Negative negative [facility] 02-12-2019 Cholesterol [Mass/Vol] 264.0 mg/dL Invalid Interpretation Code 0-200 [facility] Cholesterol in HDL [Mass/Vol] 69.0 mg/dL Invalid Interpretation Code 50-100 [facility] Cholesterol in LDL [Mass/Vol] 169.0 mg/dL Invalid Interpretation Code 0-130 [facility] Triglyceride [Mass/Vol] 132.0 mg/dL Invalid Interpretation Code 30-150 [facility] Hematologyon 02-12-2019 Hematocrit (Bld) [Volume fraction] 39.90 % Invalid Interpretation Code 35.7-47.1 [facility] Hemoglobin (Bld) [Mass/Vol] 13.30 g/dL Invalid Interpretation Code 11.9-15.7 [facility] MCH (RBC) [Entitic mass] 29.80 pg Invalid Interpretation Code 23.2-33.3 [facility] MCV (RBC) [Entitic vol] 89.50 fL Invalid Interpretation Code 83.4-101.4 [facility] Platelets (Bld) [#/Vol] 211.0 10*3/uL Invalid Interpretation Code 150-400 [facility] RBC (Bld) [#/Vol] 4.460 10*6/uL Invalid Interpretation Code 3.72-5.24 [facility] WBC (Bld) [#/Vol] 4.60 10*3/uL Invalid Interpretation Code 3.9-10.3 [facility] - Urinalysison Glucose Test strip (U) [Mass/Vol] Negative Invalid Interpretation Code negative [facility] Metabolic Panelon 02-12-2019 Anion gap [Moles/Vol] 12 mmol/L Invalid Interpretation Code 10-20 [facility] Calcium [Mass/Vol] 9.0 mg/dL Invalid Interpretation Code 8.5-10.8 [facility] Chloride [Moles/Vol] 106.0 mmol/L Invalid Interpretation Code 100-112 [facility] CO2 [Moles/Vol] 30.0 mmol/L Invalid Interpretation Code 23-30 [facility] Creatinine [Mass/Vol] 0.70 mg/dL Invalid Interpretation Code 0.5-1.5 [facility] GFR/1.73 sq M predicted among non-blacks MDRD (S/P/Bld) [Vol rate/Area] 83 mL/min/{1.73_m2} Invalid Interpretation Code [facility] Glucose [Mass/Vol] 82.0 mg/dL Invalid Interpretation Code 80-117 [facility] HbA1c (Bld) [Mass fraction] 7.20 % Invalid Interpretation Code 4.3-6.3 [facility] Potassium [Moles/Vol] 4.20 mmol/L Invalid Interpretation Code 3.5-5.3 [facility] Sodium [Moles/Vol] 144.0 mmol/L Invalid Interpretation Code 135-148 [facility] Urea nitrogen [Mass/Vol] 17.0 mg/dL Invalid Interpretation Code 7-25 [facility] Urea nitrogen/Creatinine [Mass ratio] 24 mg/mg Invalid Interpretation Code 6-20 [facility] Otheron 02-12-2019 Albumin (U) [Mass/Vol] 12.7 Invalid Interpretation Code <17.0 [facility] Cholesterol in VLDL [Mass/Vol] 26.0 mg/dL Invalid Interpretation Code 0-39 [facility] Cholesterol.total/Cho lesterol in HDL [Mass ratio] 4 {ratio} Invalid Interpretation Code [facility] Erythrocyte distribution width (RBC) [Ratio] 13.0 % Invalid Interpretation Code 11.5-15.5 [facility] Glucose Test strip (U) [Mass/Vol] Negative negative [facility] MCHC (RBC) [Mass/Vol] 33.30 g/dL Invalid Interpretation Code 32.0-36.0 [facility] Platelet mean volume (Bld) [Entitic vol] 10.70 fL Invalid Interpretation Code 8.3-11.5 [facility] 160 [facility] See Above Invalid Interpretation Code 0-0 [facility] 160.0 mg/dL Invalid Interpretation Code [facility] Thyroidon 02-12-2019 T4 [Mass/Vol] 7.63 ug/dL Invalid Interpretation Code 5.00-12.00 [facility] TSH Qn 0.44 m[IU]/L Invalid Interpretation Code 0.50-4.00 [facility] Urinalysison 02-12-2019 Albumin/Creatinine DL <= 20 mg/L (U) [Mass ratio] 5.1 mg/g Invalid Interpretation Code 0.0-30.0 [facility] Creatinine (U) [Mass/Vol] 250.20 mg/dL Invalid Interpretation Code Not Estab. mg/dL [facility] Protein (U) [Mass/Vol] trace Invalid Interpretation Code negative [facility] 11-28-2018 Cholesterol [Mass/Vol] 257.0 mg/dL Invalid Interpretation Code 0-200 [facility] Cholesterol in HDL [Mass/Vol] 66.0 mg/dL Invalid Interpretation Code 50-100 [facility] Cholesterol in LDL [Mass/Vol] 161.0 mg/dL Invalid Interpretation Code 0-130 [facility] Triglyceride [Mass/Vol] 152.0 mg/dL Invalid Interpretation Code 30-150 [facility] Metabolic Panelon 11-28-2018 Anion gap [Moles/Vol] 14 mmol/L Invalid Interpretation Code 10-20 [facility] Calcium [Mass/Vol] 9.20 mg/dL Invalid Interpretation Code 8.5-10.8 [facility] Chloride [Moles/Vol] 104.0 mmol/L Invalid Interpretation Code 100-112 [facility] CO2 [Moles/Vol] 30.0 mmol/L Invalid Interpretation Code 23-30 [facility] Creatinine [Mass/Vol] 0.70 mg/dL Invalid Interpretation Code 0.5-1.5 [facility] GFR/1.73 sq M predicted among non-blacks MDRD (S/P/Bld) [Vol rate/Area] 83 mL/min/{1.73_m2} Invalid Interpretation Code [facility] Glucose [Mass/Vol] 169.0 mg/dL Invalid Interpretation Code 80-117 [facility] HbA1c (Bld) [Mass fraction] 7.10 % Invalid Interpretation Code 4.3-6.3 [facility] Potassium [Moles/Vol] 4.50 mmol/L Invalid Interpretation Code 3.5-5.3 [facility] Sodium [Moles/Vol] 143.0 mmol/L Invalid Interpretation Code 135-148 [facility] Urea nitrogen [Mass/Vol] 21.0 mg/dL Invalid Interpretation Code 7-25 [facility] Urea nitrogen/Creatinine [Mass ratio] 30 mg/mg Invalid Interpretation Code 6-20 [facility] Otheron 11-28-2018 Cholesterol in VLDL [Mass/Vol] 30.0 mg/dL Invalid Interpretation Code 0-39 [facility] Cholesterol.total/Cho lesterol in HDL [Mass ratio] 4 {ratio} Invalid Interpretation Code [facility] See Above Invalid Interpretation Code 0-0 [facility] 157 [facility] 157.0 mg/dL Invalid Interpretation Code [facility] Metabolic Panelon 08-29-2018 Anion gap [Moles/Vol] 14 mmol/L Invalid Interpretation Code 10-20 [facility] Calcium [Mass/Vol] 9.30 mg/dL Invalid Interpretation Code 8.5-10.8 [facility] Chloride [Moles/Vol] 102 mmol/L Invalid Interpretation Code 100-112 [facility] CO2 [Moles/Vol] 29 mmol/L Invalid Interpretation Code 23-30 [facility] Creatinine [Mass/Vol] 0.80 mg/dL Invalid Interpretation Code 0.5-1.5 [facility] GFR/1.73 sq M predicted among non-blacks MDRD (S/P/Bld) [Vol rate/Area] 71 mL/min/{1.73_m2} Invalid Interpretation Code [facility] Glucose [Mass/Vol] 185.0 mg/dL Invalid Interpretation Code 80-117 [facility] HbA1c (Bld) [Mass fraction] 6.70 % Invalid Interpretation Code 4.3-6.3 [facility] Potassium [Moles/Vol] 4.3 mmol/L Invalid Interpretation Code 3.5-5.3 [facility] Sodium [Moles/Vol] 141 mmol/L Invalid Interpretation Code 135-148 [facility] Urea nitrogen [Mass/Vol] 23.0 mg/dL Invalid Interpretation Code 7-25 [facility] Urea nitrogen/Creatinine [Mass ratio] 29 mg/mg Invalid Interpretation Code 6-20 [facility] Otheron 08-29-2018 Albumin (U) [Mass/Vol] 15.9 Invalid Interpretation Code <17.0 [facility] 146 [facility] 146.0 mg/dL Invalid Interpretation Code [facility] Urinalysison 08-29-2018 Albumin/Creatinine DL <= 20 mg/L (U) [Mass ratio] 8.5 mg/g Invalid Interpretation Code 0.0-30.0 [facility] Creatinine (U) [Mass/Vol] 187.40 mg/dL Invalid Interpretation Code Not Estab. mg/dL [facility] No Panel Informationon 08-01 Diabetic Retinal Eye Exam Invalid Interpretation Code [facility] 05-30-2018 Cholesterol [Mass/Vol] 266.0 mg/dL Invalid Interpretation Code 0-200 [facility] Cholesterol in HDL [Mass/Vol] 77.0 mg/dL Invalid Interpretation Code 50-100 [facility] Cholesterol in LDL [Mass/Vol] 166.0 mg/dL Invalid Interpretation Code 0-130 [facility] Triglyceride [Mass/Vol] 115.0 mg/dL Invalid Interpretation Code 30-150 [facility] - Urinalysison Glucose Test strip (U) [Mass/Vol] Negative Invalid Interpretation Code negative [facility] Protein (U) [Mass/Vol] Negative Invalid Interpretation Code negative [facility] Metabolic Panelon 05-30-2018 Anion gap [Moles/Vol] 13 mmol/L Invalid Interpretation Code 10-20 [facility] Calcium [Mass/Vol] 9.30 mg/dL Invalid Interpretation Code 8.5-10.8 [facility] Chloride [Moles/Vol] 104 mmol/L Invalid Interpretation Code 100-112 [facility] CO2 [Moles/Vol] 28 mmol/L Invalid Interpretation Code 23-30 [facility] Creatinine [Mass/Vol] 0.70 mg/dL Invalid Interpretation Code 0.5-1.5 [facility] GFR/1.73 sq M predicted among non-blacks MDRD (S/P/Bld) [Vol rate/Area] 83 mL/min/{1.73_m2} Invalid Interpretation Code [facility] Glucose [Mass/Vol] 188.0 mg/dL Invalid Interpretation Code 80-117 [facility] HbA1c (Bld) [Mass fraction] 6.60 % Invalid Interpretation Code 4.3-6.3 [facility] Potassium [Moles/Vol] 4.6 mmol/L Invalid Interpretation Code 3.5-5.3 [facility] Sodium [Moles/Vol] 140 mmol/L Invalid Interpretation Code 135-148 [facility] Urea nitrogen [Mass/Vol] 20.0 mg/dL Invalid Interpretation Code 7-25 [facility] Urea nitrogen/Creatinine [Mass ratio] 29 mg/mg Invalid Interpretation Code 6-20 [facility] Otheron 05-30-2018 Cholesterol in VLDL [Mass/Vol] 23.0 mg/dL Invalid Interpretation Code 0-39 [facility] Cholesterol.total/Cho lesterol in HDL [Mass ratio] 3 {ratio} Invalid Interpretation Code [facility] Glucose Test strip (U) [Mass/Vol] Negative negative [facility] 143 [facility] See Above Invalid Interpretation Code 0-0 [facility] 143.0 mg/dL Invalid Interpretation Code [facility] Thyroidon 05-30-2018 T4 [Mass/Vol] 7.83 ug/dL Invalid Interpretation Code 5.00-12.00 [facility] TSH Qn 0.47 m[IU]/L Invalid Interpretation Code 0.50-4.00 [facility] Urinalysison 05-30-2018 Protein (U) [Mass/Vol] Negative negative [facility] Metabolic Panelon 02-28-2018 Anion gap [Moles/Vol] 14 mmol/L Invalid Interpretation Code 10-20 [facility] Calcium [Mass/Vol] 9.0 mg/dL Invalid Interpretation Code 8.5-10.8 [facility] Chloride [Moles/Vol] 105 mmol/L Invalid Interpretation Code 100-112 [facility] CO2 [Moles/Vol] 27 mmol/L Invalid Interpretation Code 23-30 [facility] Creatinine [Mass/Vol] 0.80 mg/dL Invalid Interpretation Code 0.5-1.5 [facility] GFR/1.73 sq M predicted among non-blacks MDRD (S/P/Bld) [Vol rate/Area] 71 mL/min/{1.73_m2} Invalid Interpretation Code [facility] Glucose [Mass/Vol] 230.0 mg/dL Invalid Interpretation Code 80-117 [facility] HbA1c (Bld) [Mass fraction] 6.50 % Invalid Interpretation Code 4.3-6.3 [facility] Potassium [Moles/Vol] 4.6 mmol/L Invalid Interpretation Code 3.5-5.3 [facility] Sodium [Moles/Vol] 141 mmol/L Invalid Interpretation Code 135-148 [facility] Urea nitrogen [Mass/Vol] 24.0 mg/dL Invalid Interpretation Code 7-25 [facility] Urea nitrogen/Creatinine [Mass ratio] 30 mg/mg Invalid Interpretation Code 6-20 [facility] Otheron 02-28-2018 Albumin (U) [Mass/Vol] < 12.00 Invalid Interpretation Code < 17.0 ug/mL [facility] 140 [facility] 140.0 mg/dL Invalid Interpretation Code [facility] Urinalysison 02-28-2018 Creatinine (U) [Mass/Vol] 84.60 mg/dL Invalid Interpretation Code Not Estab. mg/dL [facility] 11-29-2017 Cholesterol [Mass/Vol] 264.0 mg/dL Invalid Interpretation Code 0-200 [facility] Cholesterol in HDL [Mass/Vol] 74.0 mg/dL Invalid Interpretation Code 50-100 [facility] Cholesterol in LDL [Mass/Vol] 164.0 mg/dL Invalid Interpretation Code 0-130 [facility] Triglyceride [Mass/Vol] 131.0 mg/dL Invalid Interpretation Code 30-150 [facility] - Urinalysison Glucose Test strip (U) [Mass/Vol] Negative Invalid Interpretation Code negative [facility] Protein (U) [Mass/Vol] Negative Invalid Interpretation Code negative [facility] Metabolic Panelon 11-29-2017 Anion gap [Moles/Vol] 14 mmol/L Invalid Interpretation Code 10-20 [facility] Calcium [Mass/Vol] 9.0 mg/dL Invalid Interpretation Code 8.5-10.8 [facility] Chloride [Moles/Vol] 102 mmol/L Invalid Interpretation Code 100-112 [facility] CO2 [Moles/Vol] 29 mmol/L Invalid Interpretation Code 23-30 [facility] Creatinine [Mass/Vol] 0.70 mg/dL Invalid Interpretation Code 0.5-1.5 [facility] GFR/1.73 sq M predicted among non-blacks MDRD (S/P/Bld) [Vol rate/Area] 83 mL/min/{1.73_m2} Invalid Interpretation Code [facility] Glucose [Mass/Vol] 159.0 mg/dL Invalid Interpretation Code 80-117 [facility] HbA1c (Bld) [Mass fraction] 6.70 % Invalid Interpretation Code 4.3-6.3 [facility] Potassium [Moles/Vol] 4.6 mmol/L Invalid Interpretation Code 3.5-5.3 [facility] Sodium [Moles/Vol] 140 mmol/L Invalid Interpretation Code 135-148 [facility] Urea nitrogen [Mass/Vol] 16.0 mg/dL Invalid Interpretation Code 7-25 [facility] Urea nitrogen/Creatinine [Mass ratio] 23 mg/mg Invalid Interpretation Code 6-20 [facility] Otheron 11-29-2017 Albumin (U) [Mass/Vol] < 12.00 Invalid Interpretation Code < 17.0 ug/mL [facility] Cholesterol in VLDL [Mass/Vol] 26.0 mg/dL Invalid Interpretation Code 0-39 [facility] Cholesterol.total/Cho lesterol in HDL [Mass ratio] 4 {ratio} Invalid Interpretation Code [facility] Glucose Test strip (U) [Mass/Vol] Negative negative [facility] pH (U) 7.0 [pH] Invalid Interpretation Code 4.5-7.8 [facility] See Above Invalid Interpretation Code 0-0 [facility] 146 [facility] 146.0 mg/dL Invalid Interpretation Code [facility] Urinalysison 11-29-2017 Creatinine (U) [Mass/Vol] 71.60 mg/dL Invalid Interpretation Code Not Estab. mg/dL [facility] Protein (U) [Mass/Vol] Negative negative [facility] 08-30-2017 Cholesterol [Mass/Vol] 267.0 mg/dL Invalid Interpretation Code 0-200 [facility] Cholesterol in HDL [Mass/Vol] 69.0 mg/dL Invalid Interpretation Code 50-100 [facility] Cholesterol in LDL [Mass/Vol] 169.0 mg/dL Invalid Interpretation Code 0-130 [facility] Triglyceride [Mass/Vol] 147.0 mg/dL Invalid Interpretation Code 30-150 [facility] Laboratory - [facility] Glucose Test strip (U) [Mass/Vol] Negative Invalid Interpretation Code negative [facility] Protein (U) [Mass/Vol] Negative Invalid Interpretation Code negative [facility] Metabolic Panelon 08-30-2017 Anion gap [Moles/Vol] 13 mmol/L Invalid Interpretation Code 10-20 [facility] Calcium [Mass/Vol] 9.20 mg/dL Invalid Interpretation Code 8.5-10.8 [facility] Chloride [Moles/Vol] 104 mmol/L Invalid Interpretation Code 100-112 [facility] CO2 [Moles/Vol] 29 mmol/L Invalid Interpretation Code 23-30 [facility] Creatinine [Mass/Vol] 0.70 mg/dL Invalid Interpretation Code 0.5-1.5 [facility] GFR/1.73 sq M predicted among non-blacks MDRD (S/P/Bld) [Vol rate/Area] 83 mL/min/{1.73_m2} Invalid Interpretation Code [facility] Glucose [Mass/Vol] 186.0 mg/dL Invalid Interpretation Code 80-117 [facility] HbA1c (Bld) [Mass fraction] 6.80 % Invalid Interpretation Code 4.3-6.3 [facility] Potassium [Moles/Vol] 4.4 mmol/L Invalid Interpretation Code 3.5-5.3 [facility] Sodium [Moles/Vol] 142 mmol/L Invalid Interpretation Code 135-148 [facility] Urea nitrogen [Mass/Vol] 17.0 mg/dL Invalid Interpretation Code 7-25 [facility] Urea nitrogen/Creatinine [Mass ratio] 24 mg/mg Invalid Interpretation Code 6-20 [facility] Otheron 08-30-2017 Albumin (U) [Mass/Vol] < 12.00 Invalid Interpretation Code < 17.0 ug/mL [facility] Cholesterol in VLDL [Mass/Vol] 29.0 mg/dL Invalid Interpretation Code 0-39 [facility] Cholesterol.total/Cho lesterol in HDL [Mass ratio] 4 {ratio} Invalid Interpretation Code [facility] Glucose Test strip (U) [Mass/Vol] Negative negative [facility] pH (U) 7.5 [pH] Invalid Interpretation Code 4.5-7.8 [facility] 148 [facility] See Above Invalid Interpretation Code 0-0 [facility] 148.0 mg/dL Invalid Interpretation Code [facility] Thyroidon 08-30-2017 T4 [Mass/Vol] 7.42 ug/dL Invalid Interpretation Code 5.00-12.00 [facility] TSH Qn 0.53 m[IU]/L Invalid Interpretation Code 0.50-4.00 [facility] Ur[facility]ysis[facility] 08-30-2017 Creatinine (U) [Mass/Vol] 28.10 mg/dL Invalid Interpretation Code Not Estab. mg/dL [facility] Protein (U) [Mass/Vol] Negative negative [facility] 05-29-2017 Cholesterol [Mass/Vol] 290.0 mg/dL Invalid Interpretation Code 0-200 [facility] Cholesterol in HDL [Mass/Vol] 76.0 mg/dL Invalid Interpretation Code 50-100 [facility] Cholesterol in LDL [Mass/Vol] 179.0 mg/dL Invalid Interpretation Code 0-130 [facility] Triglyceride [Mass/Vol] 174.0 mg/dL Invalid Interpretation Code 30-150 [facility] - [facility] Glucose Test strip (U) [Mass/Vol] Negative Invalid Interpretation Code negative [facility] Protein (U) [Mass/Vol] Negative Invalid Interpretation Code negative [facility] Metabolic Panelon 05-29-2017 Anion gap [Moles/Vol] 16 mmol/L Invalid Interpretation Code 10-20 [facility] Calcium [Mass/Vol] 9.0 mg/dL Invalid Interpretation Code 8.5-10.8 [facility] Chloride [Moles/Vol] 100 mmol/L Invalid Interpretation Code 100-112 [facility] CO2 [Moles/Vol] 30 mmol/L Invalid Interpretation Code 23-30 [facility] Creatinine [Mass/Vol] 0.90 mg/dL Invalid Interpretation Code 0.5-1.5 [facility] GFR/1.73 sq M predicted among non-blacks MDRD (S/P/Bld) [Vol rate/Area] 62 mL/min/{1.73_m2} Invalid Interpretation Code [facility] Glucose [Mass/Vol] 111.0 mg/dL Invalid Interpretation Code 80-117 [facility] HbA1c (Bld) [Mass fraction] 6.50 % Invalid Interpretation Code 4.3-6.3 [facility] Potassium [Moles/Vol] 4.8 mmol/L Invalid Interpretation Code 3.5-5.3 [facility] Sodium [Moles/Vol] 141 mmol/L Invalid Interpretation Code 135-148 [facility] Urea nitrogen [Mass/Vol] 16.0 mg/dL Invalid Interpretation Code 7-25 [facility] Urea nitrogen/Creatinine [Mass ratio] 18 mg/mg Invalid Interpretation Code 6-20 [facility] Otheron 05-29-2017 Albumin (U) [Mass/Vol] < 12.00 Invalid Interpretation Code < 17.0 ug/mL [facility] Cholesterol in VLDL [Mass/Vol] 35.0 mg/dL Invalid Interpretation Code 0-39 [facility] Cholesterol.total/Cho lesterol in HDL [Mass ratio] 4 {ratio} Invalid Interpretation Code [facility] Glucose Test strip (U) [Mass/Vol] Negative negative [facility] pH (U) 7.0 [pH] Invalid Interpretation Code 4.5-7.8 [facility] See Above Invalid Interpretation Code 0-0 [facility] 140 [facility] 140.0 mg/dL Invalid Interpretation Code [facility] Ur[facility]ysis[facility] 05-29-2017 Creatinine (U) [Mass/Vol] 45.60 mg/dL Invalid Interpretation Code Not Estab. mg/dL [facility] Protein (U) [Mass/Vol] Negative negative [facility] - [facility] Glucose Test strip (U) [Mass/Vol] Negative Invalid Interpretation Code negative [facility] Protein (U) [Mass/Vol] Negative Invalid Interpretation Code negative [facility] Metabolic Panelon 03-01-2017 Anion gap [Moles/Vol] 14 mmol/L Invalid Interpretation Code 10-20 [facility] Calcium [Mass/Vol] 8.90 mg/dL Invalid Interpretation Code 8.5-10.8 [facility] Chloride [Moles/Vol] 105 mmol/L Invalid Interpretation Code 100-112 [facility] CO2 [Moles/Vol] 28 mmol/L Invalid Interpretation Code 23-30 [facility] Creatinine [Mass/Vol] 0.70 mg/dL Invalid Interpretation Code 0.5-1.5 [facility] GFR/1.73 sq M predicted among non-blacks MDRD (S/P/Bld) [Vol rate/Area] 83 mL/min/{1.73_m2} Invalid Interpretation Code [facility] Glucose [Mass/Vol] 149.0 mg/dL Invalid Interpretation Code 80-117 [facility] HbA1c (Bld) [Mass fraction] 6.50 % Invalid Interpretation Code 4.3-6.3 [facility] Potassium [Moles/Vol] 4.5 mmol/L Invalid Interpretation Code 3.5-5.3 [facility] Sodium [Moles/Vol] 142 mmol/L Invalid Interpretation Code 135-148 [facility] Urea nitrogen [Mass/Vol] 15.0 mg/dL Invalid Interpretation Code 7-25 [facility] Urea nitrogen/Creatinine [Mass ratio] 21 mg/mg Invalid Interpretation Code 6-20 [facility] Otheron 03-01-2017 Albumin (U) [Mass/Vol] < 12.00 Invalid Interpretation Code < 17.0 ug/mL [facility] Glucose Test strip (U) [Mass/Vol] Negative negative [facility] pH (U) 7.0 [pH] Invalid Interpretation Code 4.5-7.8 [facility] See Above Invalid Interpretation Code 0-0 [facility] 140 [facility] 140.0 mg/dL Invalid Interpretation Code [facility] Ur[facility]ysis[facility] 03-01-2017 Creatinine (U) [Mass/Vol] 111.80 mg/dL Invalid Interpretation Code Not Estab. mg/dL [facility] Protein (U) [Mass/Vol] Negative negative [facility] 11-16-2016 Cholesterol [Mass/Vol] 263.0 mg/dL Invalid Interpretation Code 0-200 [facility] Cholesterol in HDL [Mass/Vol] 80.0 mg/dL Invalid Interpretation Code 50-100 [facility] Cholesterol in LDL [Mass/Vol] 157.0 mg/dL Invalid Interpretation Code 0-130 [facility] Triglyceride [Mass/Vol] 129.0 mg/dL Invalid Interpretation Code 30-150 [facility] - [facility] Glucose Test strip (U) [Mass/Vol] Negative Invalid Interpretation Code negative [facility] Protein (U) [Mass/Vol] Negative Invalid Interpretation Code negative [facility] Metabolic Panelon 11-16-2016 Glucose [Mass/Vol] 155.0 mg/dL Invalid Interpretation Code 80-117 [facility] HbA1c (Bld) [Mass fraction] 6.30 % Invalid Interpretation Code 4.3-6.3 [facility] Otheron 11-16-2016 Cholesterol in VLDL [Mass/Vol] 26.0 mg/dL Invalid Interpretation Code 0-39 [facility] Cholesterol.total/Cho lesterol in HDL [Mass ratio] 3 {ratio} Invalid Interpretation Code [facility] Glucose Test strip (U) [Mass/Vol] Negative negative [facility] pH (U) 7.0 [pH] Invalid Interpretation Code 4.5-7.8 [facility] See Above Invalid Interpretation Code 0-0 [facility] 134 [facility] 134.0 mg/dL Invalid Interpretation Code [facility] 11-16-2016 Protein (U) [Mass/Vol] Negative negative [facility] - [facility] Glucose Test strip (U) [Mass/Vol] Negative Invalid Interpretation Code negative [facility] Protein (U) [Mass/Vol] Negative Invalid Interpretation Code negative [facility] Metabolic Panelon 08-17-2016 Anion gap [Moles/Vol] 17 mmol/L Invalid Interpretation Code 10-20 [facility] Calcium [Mass/Vol] 9.30 mg/dL Invalid Interpretation Code 8.5-10.8 [facility] Chloride [Moles/Vol] 101 mmol/L Invalid Interpretation Code 100-112 [facility] CO2 [Moles/Vol] 29 mmol/L Invalid Interpretation Code 23-30 [facility] Creatinine [Mass/Vol] 0.70 mg/dL Invalid Interpretation Code 0.5-1.5 [facility] GFR/1.73 sq M predicted among non-blacks MDRD (S/P/Bld) [Vol rate/Area] 83 mL/min/{1.73_m2} Invalid Interpretation Code [facility] Glucose [Mass/Vol] 276.0 mg/dL Invalid Interpretation Code 80-117 [facility] HbA1c (Bld) [Mass fraction] 6.60 % Invalid Interpretation Code 4.3-6.3 [facility] Potassium [Moles/Vol] 5.2 mmol/L Invalid Interpretation Code 3.5-5.3 [facility] Sodium [Moles/Vol] 142 mmol/L Invalid Interpretation Code 135-148 [facility] Urea nitrogen [Mass/Vol] 16.0 mg/dL Invalid Interpretation Code 7-25 [facility] Urea nitrogen/Creatinine [Mass ratio] 23 mg/mg Invalid Interpretation Code 6-20 [facility] Otheron 08-17-2016 Albumin (U) [Mass/Vol] < 12.00 Invalid Interpretation Code < 17.0 ug/mL [facility] Glucose Test strip (U) [Mass/Vol] Negative negative [facility] pH (U) 7.0 [pH] Invalid Interpretation Code 4.5-7.8 [facility] 143 [facility] 143.0 mg/dL Invalid Interpretation Code [facility] Thyroidon 08-17-2016 T4 [Mass/Vol] 7.43 ug/dL Invalid Interpretation Code 5.00-12.00 [facility] TSH Qn 0.31 m[IU]/L Invalid Interpretation Code 0.50-4.00 [facility] Ur[facility]ysis[facility] 08-17-2016 Creatinine (U) [Mass/Vol] 51.10 mg/dL Invalid Interpretation Code Not Estab. mg/dL [facility] Protein (U) [Mass/Vol] Negative negative [facility] 05-11-2016 Cholesterol [Mass/Vol] 262.0 mg/dL Invalid Interpretation Code 0-200 [facility] Cholesterol in HDL [Mass/Vol] 92.0 mg/dL Invalid Interpretation Code 50-100 [facility] Cholesterol in LDL [Mass/Vol] 153.0 mg/dL Invalid Interpretation Code 0-130 [facility] Triglyceride [Mass/Vol] 85.0 mg/dL Invalid Interpretation Code 30-150 [facility] - [facility] Glucose Test strip (U) [Mass/Vol] Negative Invalid Interpretation Code negative [facility] Protein (U) [Mass/Vol] Negative Invalid Interpretation Code negative [facility] Metabolic Panelon 05-11-2016 ALT [Catalytic activity/Vol] 54.0 U/L Invalid Interpretation Code 0-50 [facility] Glucose [Mass/Vol] 199.0 mg/dL Invalid Interpretation Code 80-117 [facility] HbA1c (Bld) [Mass fraction] 6.20 % Invalid Interpretation Code 4.3-6.3 [facility] Otheron 05-11-2016 Albumin (U) [Mass/Vol] < 12.00 Invalid Interpretation Code < 4.0-17.0 [facility] Cholesterol in VLDL [Mass/Vol] 17.0 mg/dL Invalid Interpretation Code 0-39 [facility] Cholesterol.total/Cho lesterol in HDL [Mass ratio] 3 {ratio} Invalid Interpretation Code [facility] Glucose Test strip (U) [Mass/Vol] Negative negative [facility] pH (U) 7.0 [pH] Invalid Interpretation Code 4.5-7.8 [facility] 131 [facility] See Above Invalid Interpretation Code 0-0 [facility] 54.0 U/L 0-50 [facility] 131.0 mg/dL Invalid Interpretation Code [facility] Ur[facility]ysis[facility] 05-11-2016 Creatinine (U) [Mass/Vol] 29.0 mg/dL Invalid Interpretation Code Not Estab. mg/dL [facility] Protein (U) [Mass/Vol] Negative negative [facility] 02-10-2016 Cholesterol [Mass/Vol] 240.0 mg/dL Invalid Interpretation Code 0-200 [facility] Cholesterol in HDL [Mass/Vol] 68.0 mg/dL Invalid Interpretation Code 50-100 [facility] Cholesterol in LDL [Mass/Vol] 144.0 mg/dL Invalid Interpretation Code 0-130 [facility] Triglyceride [Mass/Vol] 138.0 mg/dL Invalid Interpretation Code 30-150 [facility] - Chemistry and C hemistry - challengeon 02-10-2016 Bilirubin Ql (U) Negative Invalid Interpretation Code Negative [facility] Ketones Ql (U) Negative Invalid Interpretation Code Negative [facility] Urobilinogen (U) [Mass/Vol] normal Invalid Interpretation Code normal [facility] Nitrite Ql (U) Negative Invalid Interpretation Code Negative [facility] Protein Ql (U) Negative Invalid Interpretation Code Negative [facility] Metabolic Panelon 02-10-2016 Anion gap [Moles/Vol] 16 mmol/L Invalid Interpretation Code 10-20 [facility] Calcium [Mass/Vol] 8.80 mg/dL Invalid Interpretation Code 8.5-10.8 [facility] Chloride [Moles/Vol] 99 mmol/L Invalid Interpretation Code 100-112 [facility] CO2 [Moles/Vol] 25 mmol/L Invalid Interpretation Code 23-30 [facility] Creatinine [Mass/Vol] 0.60 mg/dL Invalid Interpretation Code 0.5-1.5 [facility] GFR/1.73 sq M predicted among non-blacks MDRD (S/P/Bld) [Vol rate/Area] 100 mL/min/{1.73_m2} Invalid Interpretation Code [facility] Glucose [Mass/Vol] 272.0 mg/dL Invalid Interpretation Code 80-117 [facility] HbA1c (Bld) [Mass fraction] 6.20 % Invalid Interpretation Code 4.3-6.3 [facility] Potassium [Moles/Vol] 4.4 mmol/L Invalid Interpretation Code 3.5-5.3 [facility] Sodium [Moles/Vol] 136 mmol/L Invalid Interpretation Code 135-148 [facility] Urea nitrogen [Mass/Vol] 15.0 mg/dL Invalid Interpretation Code 7-25 [facility] Urea nitrogen/Creatinine [Mass ratio] 25 mg/mg Invalid Interpretation Code 6-20 [facility] Otheron 02-10-2016 Albumin (U) [Mass/Vol] < 12.00 Invalid Interpretation Code < 4.0-17.0 [facility] Bilirubin Ql (U) Negative Negative [facility] Cholesterol in VLDL [Mass/Vol] 28.0 mg/dL Invalid Interpretation Code 0-39 [facility] Cholesterol.total/Cho lesterol in HDL [Mass ratio] 4 {ratio} Invalid Interpretation Code [facility] Glucose Test strip (U) [Mass/Vol] 2+ Invalid Interpretation Code Negative [facility] Hemoglobin Ql (U) Trace Invalid Interpretation Code Negative [facility] Nitrite Ql (U) Negative Negative [facility] pH (U) 6.5 [pH] Invalid Interpretation Code 4.5-7.8 [facility] Protein Ql (U) Negative Negative [facility] Urobilinogen Test strip (U) [Mass/Vol] normal normal [facility] See Above Invalid Interpretation Code 0-0 [facility] 131 [facility] 131.0 mg/dL Invalid Interpretation Code [facility] Urinalysis[facility] 02-10-2016 Clarity (U) clear Invalid Interpretation Code Clear [facility] Color (U) yellow Invalid Interpretation Code yellow [facility] Creatinine (U) [Mass/Vol] 51.60 mg/dL Invalid Interpretation Code Not Estab. mg/dL [facility] Ketones Ql (U) Negative Negative [facility] Leukocyte esterase Test strip Ql (U) Trace Invalid Interpretation Code Negative [facility] Specific gravity (U) [Rel density] 1.010 Invalid Interpretation Code 1.003-1.029 [facility] 11-11-2015 Cholesterol [Mass/Vol] 255.0 mg/dL Invalid Interpretation Code 0-200 [facility] Cholesterol in HDL [Mass/Vol] 68.0 mg/dL Invalid Interpretation Code 50-100 [facility] Cholesterol in LDL [Mass/Vol] 151.0 mg/dL Invalid Interpretation Code 0-130 [facility] Triglyceride [Mass/Vol] 181.0 mg/dL Invalid Interpretation Code 30-150 [facility] - [facility] Glucose Test strip (U) [Mass/Vol] Negative Invalid Interpretation Code negative [facility] Metabolic Panelon 11-11-2015 Anion gap [Moles/Vol] 16 mmol/L Invalid Interpretation Code 10-20 [facility] Calcium [Mass/Vol] 9.30 mg/dL Invalid Interpretation Code 8.5-10.8 [facility] Chloride [Moles/Vol] 101 mmol/L Invalid Interpretation Code 100-112 [facility] CO2 [Moles/Vol] 27 mmol/L Invalid Interpretation Code 23-30 [facility] Creatinine [Mass/Vol] 0.70 mg/dL Invalid Interpretation Code 0.5-1.5 [facility] GFR/1.73 sq M predicted among non-blacks MDRD (S/P/Bld) [Vol rate/Area] 83 mL/min/{1.73_m2} Invalid Interpretation Code [facility] Glucose [Mass/Vol] 112.0 mg/dL Invalid Interpretation Code 80-117 [facility] HbA1c (Bld) [Mass fraction] 6.40 % Invalid Interpretation Code 4.3-6.3 [facility] Potassium [Moles/Vol] 4.8 mmol/L Invalid Interpretation Code 3.5-5.3 [facility] Sodium [Moles/Vol] 139 mmol/L Invalid Interpretation Code 135-148 [facility] Urea nitrogen [Mass/Vol] 13.0 mg/dL Invalid Interpretation Code 7-25 [facility] Urea nitrogen/Creatinine [Mass ratio] 19 mg/mg Invalid Interpretation Code 6-20 [facility] Otheron 11-11-2015 Albumin (U) [Mass/Vol] 21.7 Invalid Interpretation Code 0.0-17.0 [facility] Cholesterol in VLDL [Mass/Vol] 36.0 mg/dL Invalid Interpretation Code 0-39 [facility] Cholesterol.total/Cho lesterol in HDL [Mass ratio] 4 {ratio} Invalid Interpretation Code [facility] Glucose Test strip (U) [Mass/Vol] Negative negative [facility] pH (U) 6.0 [pH] Invalid Interpretation Code 4.5-7.8 [facility] 137 [facility] See Above Invalid Interpretation Code 0-0 [facility] 137.0 mg/dL Invalid Interpretation Code [facility] Thyroidon 11-11-2015 T4 [Mass/Vol] 10.22 ug/dL Invalid Interpretation Code 5.00-12.00 [facility] TSH Qn 1.72 m[IU]/L Invalid Interpretation Code 0.50-4.00 [facility] Urinalysis[facility] 11-11-2015 Albumin/Creatinine DL <= 20 mg/L (U) [Mass ratio] 7.7 mg/g Invalid Interpretation Code 0.0-30.0 [facility] Creatinine (U) [Mass/Vol] 280.10 mg/dL Invalid Interpretation Code Not Estab. mg/dL [facility] Protein (U) [Mass/Vol] trace Invalid Interpretation Code negative [facility] 08-05-2015 Cholesterol [Mass/Vol] 285.0 mg/dL Invalid Interpretation Code 0-200 [facility] Cholesterol in HDL [Mass/Vol] 57.0 mg/dL Invalid Interpretation Code 50-100 [facility] Cholesterol in LDL [Mass/Vol] 195.0 mg/dL Invalid Interpretation Code 0-130 [facility] Triglyceride [Mass/Vol] 164.0 mg/dL Invalid Interpretation Code 30-150 [facility] - [facility]ysis[facility] Glucose Test strip (U) [Mass/Vol] Negative Invalid Interpretation Code negative [facility] Protein (U) [Mass/Vol] Negative Invalid Interpretation Code negative [facility] Metabolic Panelon 08-05-2015 Glucose [Mass/Vol] 166.0 mg/dL Invalid Interpretation Code 80-117 [facility] HbA1c (Bld) [Mass fraction] 6.0 % Invalid Interpretation Code 4.3-6.3 [facility] Otheron 08-05-2015 Albumin (U) [Mass/Vol] < 12.00 Invalid Interpretation Code < 4.0-17.0 [facility] Cholesterol in VLDL [Mass/Vol] 33.0 mg/dL Invalid Interpretation Code 0-39 [facility] Cholesterol.total/Cho lesterol in HDL [Mass ratio] 5 {ratio} Invalid Interpretation Code [facility] Glucose Test strip (U) [Mass/Vol] Negative negative [facility] pH (U) 6.5 [pH] Invalid Interpretation Code 4.5-7.8 [facility] See Above Invalid Interpretation Code 0-0 [facility] 126 [facility] 126.0 mg/dL Invalid Interpretation Code [facility] Urinalysis[facility] 08-05-2015 Creatinine (U) [Mass/Vol] 65.30 mg/dL Invalid Interpretation Code Not Estab. mg/dL [facility] Protein (U) [Mass/Vol] Negative negative [facility] - [facility] Glucose Test strip (U) [Mass/Vol] Negative Invalid Interpretation Code negative [facility] Protein (U) [Mass/Vol] Negative Invalid Interpretation Code negative [facility] Metabolic Panelon 04-22-2015 Anion gap [Moles/Vol] 18 mmol/L Invalid Interpretation Code 10-20 [facility] Calcium [Mass/Vol] 9.20 mg/dL Invalid Interpretation Code 8.5-10.8 [facility] Chloride [Moles/Vol] 97 mmol/L Invalid Interpretation Code 100-112 [facility] CO2 [Moles/Vol] 26 mmol/L Invalid Interpretation Code 23-30 [facility] Creatinine [Mass/Vol] 0.70 mg/dL Invalid Interpretation Code 0.5-1.5 [facility] GFR/1.73 sq M predicted among non-blacks MDRD (S/P/Bld) [Vol rate/Area] 84 mL/min/{1.73_m2} Invalid Interpretation Code [facility] Glucose [Mass/Vol] 151.0 mg/dL Invalid Interpretation Code 80-117 [facility] HbA1c (Bld) [Mass fraction] 7.10 % Invalid Interpretation Code 4.3-6.3 [facility] Potassium [Moles/Vol] 4.4 mmol/L Invalid Interpretation Code 3.5-5.3 [facility] Sodium [Moles/Vol] 137 mmol/L Invalid Interpretation Code 135-148 [facility] Urea nitrogen [Mass/Vol] 14.0 mg/dL Invalid Interpretation Code 7-25 [facility] Urea nitrogen/Creatinine [Mass ratio] 20 mg/mg Invalid Interpretation Code 6-20 [facility] Otheron 04-22-2015 Glucose Test strip (U) [Mass/Vol] Negative negative [facility] pH (U) 6.0 [pH] Invalid Interpretation Code 4.5-7.8 [facility] See Above Invalid Interpretation Code 0-0 [facility] 157 [facility] 157.0 mg/dL Invalid Interpretation Code [facility] Thyroidon 04-22-2015 T4 [Mass/Vol] 9.22 ug/dL Invalid Interpretation Code 5.00-12.00 [facility] TSH Qn 3.12 m[IU]/L Invalid Interpretation Code 0.50-4.00 [facility] Urinalysis[facility] 04-22-2015 Protein (U) [Mass/Vol] Negative negative [facility] 01-20-2015 Cholesterol [Mass/Vol] 270.0 mg/dL Invalid Interpretation Code 0-200 [facility] Cholesterol in HDL [Mass/Vol] 53.0 mg/dL Invalid Interpretation Code 50-100 [facility] Cholesterol in LDL [Mass/Vol] 181.0 mg/dL Invalid Interpretation Code 0-130 [facility] Triglyceride [Mass/Vol] 182.0 mg/dL Invalid Interpretation Code 30-150 [facility] - Ur[facility]ysis[facility] Glucose Test strip (U) [Mass/Vol] Negative Invalid Interpretation Code negative [facility] Protein (U) [Mass/Vol] Negative Invalid Interpretation Code negative [facility] Metabolic Panelon 01-20-2015 ALT [Catalytic activity/Vol] 21.0 U/L Invalid Interpretation Code 0-50 [facility] Anion gap [Moles/Vol] 16 mmol/L Invalid Interpretation Code 10-20 [facility] Calcium [Mass/Vol] 9.10 mg/dL Invalid Interpretation Code 8.5-10.8 [facility] Chloride [Moles/Vol] 102 mmol/L Invalid Interpretation Code 100-112 [facility] CO2 [Moles/Vol] 26 mmol/L Invalid Interpretation Code 23-30 [facility] Creatinine [Mass/Vol] 1.0 mg/dL Invalid Interpretation Code 0.5-1.5 [facility] GFR/1.73 sq M predicted among non-blacks MDRD (S/P/Bld) [Vol rate/Area] 55 mL/min/{1.73_m2} Invalid Interpretation Code [facility] Glucose [Mass/Vol] 152.0 mg/dL Invalid Interpretation Code 80-117 [facility] HbA1c (Bld) [Mass fraction] 7.20 % Invalid Interpretation Code 4.3-6.3 [facility] Potassium [Moles/Vol] 5.2 mmol/L Invalid Interpretation Code 3.5-5.3 [facility] Sodium [Moles/Vol] 139 mmol/L Invalid Interpretation Code 135-148 [facility] Urea nitrogen [Mass/Vol] 18.0 mg/dL Invalid Interpretation Code 7-25 [facility] Urea nitrogen/Creatinine [Mass ratio] 18 mg/mg Invalid Interpretation Code 6-20 [facility] Otheron 01-20-2015 Albumin (U) [Mass/Vol] < 12.00 Invalid Interpretation Code < 4.0-17.0 [facility] Cholesterol in VLDL [Mass/Vol] 36.0 mg/dL Invalid Interpretation Code 0-39 [facility] Cholesterol.total/Cho lesterol in HDL [Mass ratio] 5 {ratio} Invalid Interpretation Code [facility] Glucose Test strip (U) [Mass/Vol] Negative negative [facility] pH (U) 7.0 [pH] Invalid Interpretation Code 4.5-7.8 [facility] See Above Invalid Interpretation Code 0-0 [facility] 160.0 mg/dL Invalid Interpretation Code [facility] 21.0 U/L 0-50 [facility] Urinalysison 01-20-2015 Creatinine (U) [Mass/Vol] 57.10 mg/dL Invalid Interpretation Code Not Estab. mg/dL [facility] Protein (U) [Mass/Vol] Negative negative [facility] 09-22-2014 Cholesterol [Mass/Vol] 259.0 mg/dL Invalid Interpretation Code 0-200 [facility] Cholesterol in HDL [Mass/Vol] 73.0 mg/dL Invalid Interpretation Code 50-100 [facility] Cholesterol in LDL [Mass/Vol] 164.0 mg/dL Invalid Interpretation Code 0-130 [facility] Triglyceride [Mass/Vol] 111.0 mg/dL Invalid Interpretation Code 30-150 [facility] - Chemistry and C hemistry - challengeon 09-22-2014 ALT [Catalytic activity/Vol] U/L Invalid Interpretation Code 0-50 [facility] - Urinalysis[facility] Glucose Test strip (U) [Mass/Vol] Negative Invalid Interpretation Code negative [facility] Protein (U) [Mass/Vol] Negative Invalid Interpretation Code negative [facility] Metabolic Panelon 09-22-2014 ALT [Catalytic activity/Vol] U/L 0-50 [facility] Anion gap [Moles/Vol] 15 mmol/L Invalid Interpretation Code 10-20 [facility] Calcium [Mass/Vol] 9.10 mg/dL Invalid Interpretation Code 8.5-10.8 [facility] Chloride [Moles/Vol] 107 mmol/L Invalid Interpretation Code 100-112 [facility] CO2 [Moles/Vol] 28 mmol/L Invalid Interpretation Code 23-30 [facility] Creatinine [Mass/Vol] 0.70 mg/dL Invalid Interpretation Code 0.5-1.5 [facility] GFR/1.73 sq M predicted among non-blacks MDRD (S/P/Bld) [Vol rate/Area] 84 mL/min/{1.73_m2} Invalid Interpretation Code [facility] Glucose [Mass/Vol] 132.0 mg/dL Invalid Interpretation Code 80-117 [facility] HbA1c (Bld) [Mass fraction] 6.50 % Invalid Interpretation Code 4.3-6.3 [facility] Potassium [Moles/Vol] 4.6 mmol/L Invalid Interpretation Code 3.5-5.3 [facility] Sodium [Moles/Vol] 145 mmol/L Invalid Interpretation Code 135-148 [facility] Urea nitrogen [Mass/Vol] 22.0 mg/dL Invalid Interpretation Code 7-25 [facility] Urea nitrogen/Creatinine [Mass ratio] 31 mg/mg Invalid Interpretation Code 6-20 [facility] Otheron 09-22-2014 Albumin (U) [Mass/Vol] < 12.00 Invalid Interpretation Code < 4.0-17.0 [facility] Cholesterol in VLDL [Mass/Vol] 22.0 mg/dL Invalid Interpretation Code 0-39 [facility] Cholesterol.total/Cho lesterol in HDL [Mass ratio] 4 {ratio} Invalid Interpretation Code [facility] Glucose Test strip (U) [Mass/Vol] Negative negative [facility] pH (U) 6.0 [pH] Invalid Interpretation Code 4.5-7.8 [facility] See Above Invalid Interpretation Code 0-0 [facility] 140.0 mg/dL Invalid Interpretation Code SantosLunagames < 5.0 0-50 [facility] Thyroidon 09-22-2014 T4 [Mass/Vol] 8.14 ug/dL Invalid Interpretation Code 5.00-12.00 [facility] TSH Qn 0.94 m[IU]/L Invalid Interpretation Code 0.50-4.00 [facility] Urinalysison 09-22-2014 Creatinine (U) [Mass/Vol] 185.60 mg/dL Invalid Interpretation Code Not Estab. mg dL [facility] Protein (U) [Mass/Vol] Negative negative [facility] 06-16-2014 Cholesterol [Mass/Vol] 261.0 mg/dL Invalid Interpretation Code 0-200 [facility] Cholesterol in HDL [Mass/Vol] 67.0 mg/dL Invalid Interpretation Code 50-100 [facility] Cholesterol in LDL [Mass/Vol] 170.0 mg/dL Invalid Interpretation Code 0-130 [facility] Triglyceride [Mass/Vol] 121.0 mg/dL Invalid Interpretation Code 30-150 [facility] Laboratory - Chemistry and C hemistry - challengeon 06-16-2014 Bilirubin Ql (U) Negative Invalid Interpretation Code Negative [facility] Ketones Ql (U) Negative Invalid Interpretation Code Negative [facility] Urobilinogen (U) [Mass/Vol] normal Invalid Interpretation Code normal [facility] Laboratory - Urinalysison Leukocyte esterase Test strip Ql (U) Negative Invalid Interpretation Code Negative [facility] Nitrite Ql (U) Negative Invalid Interpretation Code Negative [facility] Protein Ql (U) Negative Invalid Interpretation Code Negative [facility] Metabolic Panelon 06-16-2014 Anion gap [Moles/Vol] 13 mmol/L Invalid Interpretation Code 10-20 [facility] Calcium [Mass/Vol] 9.30 mg/dL Invalid Interpretation Code 8.5-10.8 [facility] Chloride [Moles/Vol] 105 mmol/L Invalid Interpretation Code 100-112 [facility] CO2 [Moles/Vol] 29 mmol/L Invalid Interpretation Code 23-30 [facility] [employer] Creatinine [Mass/Vol] 0.70 mg/dL Invalid Interpretation Code 0.5-1.5 [employer] GFR/1.73 sq M predicted among non-blacks MDRD (S/P/Bld) [Vol rate/Area] 84 mL/min/{1.73_m2} Invalid Interpretation Code [employer] Glucose [Mass/Vol] 58.0 mg/dL Invalid Interpretation Code 80-117 [employer] HbA1c (Bld) [Mass fraction] 7.0 % Invalid Interpretation Code 4.3-6.3 [employer] Potassium [Moles/Vol] 4.2 mmol/L Invalid Interpretation Code 3.5-5.3 [employer] Sodium [Moles/Vol] 143 mmol/L Invalid Interpretation Code 135-148 [employer] Urea nitrogen [Mass/Vol] 14.0 mg/dL Invalid Interpretation Code 7-25 [employer] Urea nitrogen/Creatinine [Mass ratio] 20 mg/mg Invalid Interpretation Code 6-20 [employer] Otheron 06-16-2014 Albumin (U) [Mass/Vol] < 12.00 Invalid Interpretation Code < 4.0-17.0 [employer] Bilirubin Ql (U) Negative Negative [facility] [employer] Cholesterol in VLDL [Mass/Vol] 24.0 mg/dL Invalid Interpretation Code 0-39 [employer] Cholesterol.total/Cho lesterol in HDL [Mass ratio] 4 {ratio} Invalid Interpretation Code [employer] Glucose Test strip (U) [Mass/Vol] 4+ Invalid Interpretation Code Negative [facility] Hemoglobin Ql (U) Trace Invalid Interpretation Code Negative [facility] Nitrite Ql (U) Negative Negative [facility] pH (U) 7 [pH] Invalid Interpretation Code 4.5-7.8 [facility] Protein Ql (U) Negative Negative [facility] Urobilinogen Test strip (U) [Mass/Vol] normal normal [facility] See Above Invalid Interpretation Code 0-0 [facility] 154.0 mg/dL Invalid Interpretation Code [facility] Thyroidon 06-16-2014 T4 [Mass/Vol] 9.22 ug/dL Invalid Interpretation Code 5.00-12.00 [facility] TSH Qn 0.76 m[IU]/L Invalid Interpretation Code 0.50-4.00 [facility] Urinalysison 06-16-2014 Clarity (U) clear Invalid Interpretation Code Clear [facility] Color (U) yellow Invalid Interpretation Code yellow [facility] Creatinine (U) [Mass/Vol] 49.80 mg/dL Invalid Interpretation Code Not Estab. mg dL [facility] Ketones Ql (U) Negative Negative [facility] Leukocyte esterase Test strip Ql (U) Negative Negative [facility] Specific gravity (U) [Rel density] 1.010 Invalid Interpretation Code 1.003-1.029 [facility] 03-17-2014 Cholesterol [Mass/Vol] 253.0 mg/dL Invalid Interpretation Code 0-200 [facility] Cholesterol in HDL [Mass/Vol] 68.0 mg/dL Invalid Interpretation Code 50-100 [facility] Cholesterol in LDL [Mass/Vol] 168.0 mg/dL Invalid Interpretation Code 0-130 [facility] Triglyceride [Mass/Vol] 84.0 mg/dL Invalid Interpretation Code 30-150 [facility] Laboratory - Urinalysison Glucose Test strip (U) [Mass/Vol] Negative Invalid Interpretation Code negative [facility] Protein (U) [Mass/Vol] Negative Invalid Interpretation Code negative [facility] Metabolic Panelon 03-17-2014 Anion gap [Moles/Vol] 8 mmol/L Invalid Interpretation Code 10-20 [facility] Calcium [Mass/Vol] 9.10 mg/dL Invalid Interpretation Code 8.5-10.8 [facility] Chloride [Moles/Vol] 103 mmol/L Invalid Interpretation Code 100-112 [facility] CO2 [Moles/Vol] 32 mmol/L Invalid Interpretation Code 23-30 [facility] Creatinine [Mass/Vol] 0.70 mg/dL Invalid Interpretation Code 0.5-1.5 [facility] GFR/1.73 sq M predicted among non-blacks MDRD (S/P/Bld) [Vol rate/Area] 84 mL/min/{1.73_m2} Invalid Interpretation Code [facility] Glucose [Mass/Vol] 161.0 mg/dL Invalid Interpretation Code 80-117 [facility] HbA1c (Bld) [Mass fraction] 6.20 % Invalid Interpretation Code 4.3-6.3 [facility] Potassium [Moles/Vol] 4.4 mmol/L Invalid Interpretation Code 3.5-5.3 [facility] Sodium [Moles/Vol] 139 mmol/L Invalid Interpretation Code 135-148 [facility] Urea nitrogen [Mass/Vol] 21.0 mg/dL Invalid Interpretation Code 7-25 [facility] Urea nitrogen/Creatinine [Mass ratio] 30 mg/mg Invalid Interpretation Code 6-20 [facility] Otheron 03-17-2014 Albumin (U) [Mass/Vol] < 12.00 Invalid Interpretation Code < 4.0-17.0 [facility] Cholesterol in VLDL [Mass/Vol] 17.0 mg/dL Invalid Interpretation Code 0-39 [facility] Cholesterol.total/Cho lesterol in HDL [Mass ratio] 4 {ratio} Invalid Interpretation Code [facility] Glucose Test strip (U) [Mass/Vol] Negative negative [facility] pH (U) 7.0 [pH] Invalid Interpretation Code 4.5-7.8 [facility] 131.0 mg/dL Invalid Interpretation Code [facility] See Above Invalid Interpretation Code 0-0 [facility] Urinalysison 03-17-2014 Creatinine (U) [Mass/Vol] 70.80 mg/dL Invalid Interpretation Code Not Estab. mg dL [facility] Protein (U) [Mass/Vol] Negative negative [facility] 12-16-2013 Cholesterol [Mass/Vol] 241.0 mg/dL Invalid Interpretation Code 0-200 [facility] Cholesterol in HDL [Mass/Vol] 57.0 mg/dL Invalid Interpretation Code 50-100 [facility] Cholesterol in LDL [Mass/Vol] 162.0 mg/dL Invalid Interpretation Code 0-130 [facility] Triglyceride [Mass/Vol] 108.0 mg/dL Invalid Interpretation Code 30-150 [facility] Laboratory - Urinalysison Glucose Test strip (U) [Mass/Vol] Negative Invalid Interpretation Code negative [facility] Protein (U) [Mass/Vol] Negative Invalid Interpretation Code negative [facility] Metabolic Panelon 12-16-2013 ALT [Catalytic activity/Vol] 15.0 U/L Invalid Interpretation Code 0-50 [facility] Glucose [Mass/Vol] 94.0 mg/dL Invalid Interpretation Code 80-117 [facility] HbA1c (Bld) [Mass fraction] 6.50 % Invalid Interpretation Code 4.3-6.3 [facility] Otheron 12-16-2013 Albumin (U) [Mass/Vol] < 12.00 Invalid Interpretation Code < 4.0-17.0 [facility] Cholesterol in VLDL [Mass/Vol] 22.0 mg/dL Invalid Interpretation Code 0-39 [facility] Cholesterol.total/Cho lesterol in HDL [Mass ratio] 4 {ratio} Invalid Interpretation Code [facility] Glucose Test strip (U) [Mass/Vol] Negative negative [facility] pH (U) 6.0 [pH] Invalid Interpretation Code 4.5-7.8 [facility] 140.0 mg/dL Invalid Interpretation Code [facility] See Above Invalid Interpretation Code 0-0 [facility] 15.0 U/L 0-50 [facility] Thyroidon 12-16-2013 T4 [Mass/Vol] 7.56 ug/dL Invalid Interpretation Code 5.00-12.00 [facility] TSH Qn 0.49 m[IU]/L Invalid Interpretation Code 0.50-4.00 [facility] Urinalysison 12-16-2013 Creatinine (U) [Mass/Vol] 162.70 mg/dL Invalid Interpretation Code Not Estab. mg dL [facility] Protein (U) [Mass/Vol] Negative negative [facility] Laboratory - Urinalysison Glucose Test strip (U) [Mass/Vol] Negative Invalid Interpretation Code negative [facility] Protein (U) [Mass/Vol] Negative Invalid Interpretation Code negative [facility] Metabolic Panelon 12-02-2013 Glucose [Mass/Vol] 108.0 mg/dL Invalid Interpretation Code 80-117 [facility] Otheron 12-02-2013 C peptide [Mass/Vol] <0.0 Invalid Interpretation Code 1.1-4.4 [facility] Glucose Test strip (U) [Mass/Vol] Negative negative [facility] Glutamate decarboxylase 65 Ab Qn (S) 96.7 Invalid Interpretation Code 0.0-1.5 [facility] pH (U) 7.0 [pH] Invalid Interpretation Code 4.5-7.8 [facility] See Above Invalid Interpretation Code 0-0 [facility] Urinalysison 12-02-2013 Protein (U) [Mass/Vol] Negative negative [facility] 03-21-2013 Cholesterol [Mass/Vol] 201.0 mg/dL Invalid Interpretation Code 0-200 [facility] Cholesterol in HDL [Mass/Vol] 74.0 mg/dL Invalid Interpretation Code 50-100 [facility] Cholesterol in LDL [Mass/Vol] 108.0 mg/dL Invalid Interpretation Code 0-130 [facility] Triglyceride [Mass/Vol] 93.0 mg/dL Invalid Interpretation Code 30-150 [facility] Laboratory - Urinalysison Glucose Test strip (U) [Mass/Vol] Negative Invalid Interpretation Code negative [facility] Protein (U) [Mass/Vol] Negative Invalid Interpretation Code negative SantosLunagames Metabolic Panelon 03-21-2013 ALT [Catalytic activity/Vol] 28.0 U/L Invalid Interpretation Code 0-50 [facility] Glucose [Mass/Vol] 134.0 mg/dL Invalid Interpretation Code 80-117 [facility] HbA1c (Bld) [Mass fraction] 6.20 % Invalid Interpretation Code 4.3-6.3 [facility] Otheron 03-21-2013 Albumin (U) [Mass/Vol] < 12.00 Invalid Interpretation Code < 4.0-17.0 [facility] Cholesterol in VLDL [Mass/Vol] 19.0 mg/dL Invalid Interpretation Code 0-39 [facility] Cholesterol.total/Cho lesterol in HDL [Mass ratio] 3 {ratio} Invalid Interpretation Code [facility] Glucose Test strip (U) [Mass/Vol] Negative negative [facility] pH (U) 7.5 [pH] Invalid Interpretation Code 4.5-7.8 [facility] See Above Invalid Interpretation Code 0-0 [facility] 131.0 mg/dL Invalid Interpretation Code [facility] 28.0 U/L 0-50 [facility] Thyroidon 03-21-2013 T4 [Mass/Vol] 9.50 ug/dL Invalid Interpretation Code 5.00-12.00 [facility] TSH Qn 0.87 m[IU]/L Invalid Interpretation Code 0.50-4.00 [facility] Urinalysison 03-21-2013 Creatinine (U) [Mass/Vol] 74.0 mg/dL Invalid Interpretation Code Not Estab. mg dL [facility] Protein (U) [Mass/Vol] Negative negative [facility] Vital Signs Date Time Vital Sign Value Performing Clinician Facility 01-31-2024 11:52-0400 Body height 151.13 cm [facility] 01-31-2024 11:52-0400 Body mass index (BMI) [Ratio] 31.97 kg/m2 [facility] 01-31-2024 11:52-0400 Body surface area Derived from formula 1.75 m2 [facility]rice [facility] 01-31-2024 11:52-0400 Body weight 73.03 kg Patrice [employer] 01-31-2024 11:52-0400 Diastolic blood pressure 70 mm[Hg] [facility] 01-31-2024 11:52-0400 Heart rate 72 /min [facility] 01-31-2024 11:52-0400 Systolic blood pressure 168 mm[Hg] [facility] [employer] 12-10-2023 13:30-0400 Body height 149.86 cm [facility] 12-10-2023 13:30-0400 Body mass index (BMI) [Ratio] 32.7 kg/m2 [facility] 12-10-2023 13:30-0400 Body weight 73.48 kg [facility] 12-10-2023 13:30-0400 Diastolic blood pressure 78 mm[Hg] [facility] 12-10-2023 13:30-0400 Heart rate 67 /min [facility] 12-10-2023 13:30-0400 SaO2% (BldA) [Mass fraction] 98 % [facility] 12-10-2023 13:30-0400 Systolic blood pressure 124 mm[Hg] [facility] 11-01-2023 10:55-0400 Body height 151.13 cm [facility]rice [employer] 11-01-2023 10:55-0400 Body mass index (BMI) [Ratio] 31.77 kg/m2 [facility] [employer] 11-01-2023 10:55-0400 Body surface area Derived from formula 1.75 m2 [employer] 11-01-2023 10:55-0400 Body weight 72.58 kg [facility] [employer] 11-01-2023 10:55-0400 Diastolic blood pressure 82 mm[Hg] [facility] [employer] 11-01-2023 10:55-0400 Heart rate 76 /min [facility] [employer] 11-01-2023 10:55-0400 Systolic blood pressure 164 mm[Hg] [facility] 08-02-2023 10:31-0500 Body height 153.67 cm Patrice [employer] 08-02-2023 10:31-0500 Body mass index (BMI) [Ratio] 30.35 kg/m2 [facility] [employer] 08-02-2023 10:31-0500 Body surface area Derived from formula 1.75 m2 [facility] [employer] 08-02-2023 10:31-0500 Body weight 71.67 kg [facility] [employer] 08-02-2023 10:31-0500 Diastolic blood pressure 80 mm[Hg] [facility] [employer] 08-02-2023 10:31-0500 Heart rate 74 /min [facility] [employer] 08-02-2023 10:31-0500 Systolic blood pressure 142 mm[Hg] [facility] 06-26-2023 13:30-0500 Body height 149.86 cm DO Paulette Voss Work Phone: [facility] 06-26-2023 13:30-0500 Body weight 71.39 kg DO Paulette Voss Work Phone: [facility] 06-26-2023 13:30-0500 Diastolic blood pressure 72 mm[Hg] DO Paulette Voss Work Phone: [facility] 06-26-2023 13:30-0500 Systolic blood pressure 132 mm[Hg] DO Paulette Voss Work Phone: [facility] 06-13-2023 13:00-0500 Body height 149.86 cm Gloria Mooney Other [facility] 06-13-2023 13:00-0500 Body mass index (BMI) [Ratio] 31.71 kg/m2 Gloria Mooney Other [employer] Other 06-13-2023 13:00-0500 Body weight 71.22 kg Gloria Mooney Other [employer] Other 06-13-2023 13:00-0500 Body weight 71.21 kg DO Paulette Voss Work Phone: [facility] 06-13-2023 13:00-0500 Diastolic blood pressure 70 mm[Hg] Gloria Mooney Other [facility] 06-13-2023 13:00-0500 SaO2% (BldA) [Mass fraction] 97 % Gloria Mooney Other [employer] Other 06-13-2023 13:00-0500 Systolic blood pressure 140 mm[Hg] Gloria Mooney Other [facility] 05-02-2023 10:16-0400 Body weight 70.76 [facility] [employer] [facility] 05-02-2023 10:16-0400 Diastolic blood pressure 70 mm[Hg] [facility]rice [employer] 05-02-2023 10:16-0400 Heart rate 68 /min [facility]rice [employer] 05-02-2023 10:16-0400 Systolic blood pressure 110 mm[Hg] [facility] [employer] 01-30-2023 09:43-0400 Body weight 71.67 kg Patrice [employer] 01-30-2023 09:43-0400 Diastolic blood pressure 70 mm[Hg] [facility]rice [employer] 01-30-2023 09:43-0400 Heart rate 72 /min [employer] 01-30-2023 09:43-0400 Systolic blood pressure 122 mm[Hg] [employer] 10-31-2022 10:21-0400 Body height 151.64 cm [employer] [facility] [employer] 10-31-2022 10:21-0400 Body mass index (BMI) [Ratio] 30.58 kg/m2 [employer] [facility] 10-31-2022 10:21-0400 Body surface area Derived from formula 1.72 m2 [employer] 10-31-2022 10:21-0400 Body weight 70.31 kg [facility] [employer] [facility] 10-31-2022 10:21-0400 Body weight 0.1 {percentile} [employer] [facility] 10-31-2022 10:21-0400 Diastolic blood pressure 78 mm[Hg] [facility] [employer] [facility] 10-31-2022 10:21-0400 Heart rate 72 /min [facility] [employer] 10-31-2022 10:21-0400 Systolic blood pressure 156 mm[Hg] [facility] [employer] 09-11-2022 17:48-0500 Body weight 70.76 kg [facility] [employer] 09-11-2022 17:48-0500 Diastolic blood pressure 72 mm[Hg] [facility] [employer] 09-11-2022 17:48-0500 Heart rate 68 /min [facility] [employer] [facility] 09-11-2022 17:48-0500 Systolic blood pressure 110 mm[Hg] [facility] [employer] 08-02-2022 10:15-0500 Body height 151.64 cm Patrice [employer] 08-02-2022 10:15-0500 Body mass index (BMI) [Ratio] 29.79 kg/m2 [facility] [employer] 08-02-2022 10:15-0500 Body surface area Derived from formula 1.7 m2 [facility] [employer] 08-02-2022 10:15-0500 Body weight 68.49 kg Patrice [employer] 08-02-2022 10:15-0500 Body weight 0.1 {percentile} [facility] [employer] 08-02-2022 10:15-0500 Diastolic blood pressure 70 mm[Hg] [facility] [employer] 08-02-2022 10:15-0500 Heart rate 68 /min Patrice Suarez [employer] 08-02-2022 10:15-0500 Systolic blood pressure 120 mm[Hg] Patrice Suarez [employer] 07-10-2022 12:30-0500 Diastolic blood pressure 67 mm[Hg] Eyal Sanchez MD Work Phone: [employer] 07-10-2022 12:30-0500 Heart rate 72 /min Eyal Sanchez MD Work Phone: [employer] 07-10-2022 12:30-0500 Respiratory rate 18 /min Eyal Sanchez MD Work Phone: [employer] 07-10-2022 12:30-0500 SaO2% (BldA) [Mass fraction] 95 % Eyal Sanchez MD Work Phone: [employer] 07-10-2022 12:30-0500 Systolic blood pressure 140 mm[Hg] Eyal Sanchez MD Work Phone: [employer] 07-10-2022 12:05-0500 Body temperature 97.2 [degF] Eyal Sanchez MD Work Phone: [employer] 07-05-2022 11:08-0500 Body height 149.9 cm Eyal Sanchez MD Work Phone: [employer] 07-05-2022 11:08-0500 Body mass index (BMI) [Ratio] 29.08 kg/m2 Eyal Sanchez MD Work Phone: [employer] 07-05-2022 11:08-0500 Body weight 65.32 kg Eyal Sanchez MD Work Phone: [employer] 05-02-2022 10:33-0400 Body weight 68.49 kg [facility]rice [facility] 05-02-2022 10:33-0400 Diastolic blood pressure 78 mm[Hg] Patrice Suarez [facility] 05-02-2022 10:33-0400 Heart rate 74 /min [facility] [employer] 05-02-2022 10:33-0400 Systolic blood pressure 142 mm[Hg] [facility] [employer] 01-30-2022 10:46-0400 Body height 149.86 cm Patrice [employer] 01-30-2022 10:46-0400 Body mass index (BMI) [Ratio] 30.3 kg/m2 [facility] [employer] 01-30-2022 10:46-0400 Body surface area Derived from formula 1.68 m2 [facility] [employer] 01-30-2022 10:46-0400 Body weight 68.04 kg [facility] [employer] 01-30-2022 10:46-0400 Diastolic blood pressure 74 mm[Hg] [facility] [employer] 01-30-2022 10:46-0400 Heart rate 66 /min [facility] [employer] 01-30-2022 10:46-0400 Systolic blood pressure 148 mm[Hg] [facility] [employer] 10-31-2021 10:19-0400 Body weight 67.59 kg [facility] [employer] 10-31-2021 10:19-0400 Diastolic blood pressure 70 mm[Hg] [facility] 10-31-2021 10:19-0400 Heart rate 74 /min [facility] 10-31-2021 10:19-0400 Systolic blood pressure 140 mm[Hg] [facility] 08-02-2021 10:12-0500 Body height 153.67 cm [facility] 08-02-2021 10:12-0500 Body mass index (BMI) [Ratio] 28.62 kg/m2 [facility] 08-02-2021 10:12-0500 Body surface area Derived from formula 1.7 m2 [facility] 08-02-2021 10:12-0500 Body weight 67.59 kg [facility] 08-02-2021 10:12-0500 Diastolic blood pressure 70 mm[Hg] [facility] 08-02-2021 10:12-0500 Heart rate 84 /min [facility] 08-02-2021 10:12-0500 Systolic blood pressure 152 mm[Hg] [facility] 05-02-2021 11:21-0400 Body height 154.31 cm [facility] 05-02-2021 11:21-0400 Body mass index (BMI) [Ratio] 28.67 kg/m2 [facility] 05-02-2021 11:21-0400 Body surface area Derived from formula 1.71 m2 [facility] [employer] [facility] 05-02-2021 11:21-0400 Body weight 68.27 kg [facility] [employer] 05-02-2021 11:21-0400 Diastolic blood pressure 60 mm[Hg] [employer] 05-02-2021 11:21-0400 Heart rate 78 /min [employer] 05-02-2021 11:21-0400 Systolic blood pressure 134 mm[Hg] [employer] 02-02-2021 12:34-0400 Body height 154.31 cm [facility]rice [employer] 02-02-2021 12:34-0400 Body mass index (BMI) [Ratio] 29.34 kg/m2 [facility] [employer] 02-02-2021 12:34-0400 Body surface area Derived from formula 1.73 m2 [employer] [facility] 02-02-2021 12:34-0400 Body weight 69.85 kg Patrice [employer] [facility] 02-02-2021 12:34-0400 Diastolic blood pressure 66 mm[Hg] [employer] 02-02-2021 12:34-0400 Heart rate 72 /min [facility] 02-02-2021 12:34-0400 Systolic blood pressure 142 mm[Hg] [facility] 10-20-2020 12:15-0400 BMI (Body Mass Index) 29.53 kg/m2 [facility] [employer] [facility] 10-20-2020 12:15-0400 Body weight 70.31 kg [facility] [employer] [facility] 10-20-2020 12:15-0400 BP Diastolic 66 mm[Hg] [facility] [employer] [facility] 10-20-2020 12:15-0400 BP Systolic 130 mm[Hg] [facility] [employer] [facility] 10-20-2020 12:15-0400 BSA (Body Surface Area) 1.74 m2 [facility] [employer] [facility] 10-20-2020 12:15-0400 Height 154.31 cm [facility] [employer] [facility] 10-20-2020 12:15-0400 Pulse (Heart Rate) 72 /min [facility] [employer] [facility] 07-21-2020 12:13-0500 BMI (Body Mass Index) 28.96 kg/m2 [facility] [employer] [facility] 07-21-2020 12:13-0500 Body weight 68.95 kg [facility] [employer] [facility] 07-21-2020 12:13-0500 BP Diastolic 70 mm[Hg] [facility] [employer] [facility] 07-21-2020 12:13-0500 BP Systolic 152 mm[Hg] [facility] [employer] [facility] 07-21-2020 12:13-0500 BSA (Body Surface Area) 1.72 m2 [facility] [employer] [facility] 07-21-2020 12:13-0500 Height 154.31 cm [facility]upur [employer] 07-21-2020 12:13-0500 Pulse (Heart Rate) 74 /min Nupur Navarro [employer] 04-14-2020 16:25-0400 BMI (Body Mass Index) 29 kg/m2 [facility] [employer] 04-14-2020 16:25-0400 Body weight 69.63 kg Nupur FontaineLunagames 04-14-2020 16:25-0400 BP Diastolic 79 mm[Hg] [facility]up[facility] FontaineLunagames 04-14-2020 16:25-0400 BP Systolic 151 mm[Hg] Nupur Lacey [facility] 04-14-2020 16:25-0400 BSA (Body Surface Area) 1.73 m2 [facility]ur [employer] 04-14-2020 16:25-0400 Height 154.94 cm Nupur FontaineThousand[employer] [facility] 04-14-2020 16:25-0400 Pulse (Heart Rate) 76 /min Nupur Navarro [employer] [facility] 01-14-2020 15:09-0400 BMI (Body Mass Index) 30.14 kg/m2 [facility] [employer] 01-14-2020 15:09-0400 Body Temperature 98 [degF] [facility] [employer] 01-14-2020 15:09-0400 Body weight 72.35 kg Patrice [employer] 01-14-2020 15:09-0400 BP Diastolic 76 mm[Hg] Patrice Suarez [facility] 01-14-2020 15:09-0400 BP Systolic 124 mm[Hg] Patrice FontaineLunagames 01-14-2020 15:09-0400 BSA (Body Surface Area) 1.76 m2 [facility]rice [employer] 01-14-2020 15:09-0400 Height 154.94 cm Patrice Suarez [facility] 01-14-2020 15:09-0400 Pulse (Heart Rate) 72 /min Patrice [employer] 08-21-2019 10:50-0500 BMI (Body Mass Index) 31.18 kg/m2 [facility] [employer] 08-21-2019 10:50-0500 Body weight 74.84 kg Nupur [email or web address] 08-21-2019 10:50-0500 BP Diastolic 70 mm[Hg] [facility] [employer] 08-21-2019 10:50-0500 BP Systolic 160 mm[Hg] [facility] [employer] 08-21-2019 10:50-0500 BSA (Body Surface Area) 1.79 m2 [facility] [employer] 08-21-2019 10:50-0500 Height 154.94 cm [facility] [employer] 08-21-2019 10:50-0500 Pulse (Heart Rate) 80 /min [employer] 05-22-2019 10:37-0500 BMI (Body Mass Index) 30.48 kg/m2 [facility] 05-22-2019 10:37-0500 Body weight 73.17 kg Nupur Lacey [employer] 05-22-2019 10:37-0500 BP Diastolic 68 mm[Hg] Nupur Lacey [employer] 05-22-2019 10:37-0500 BP Systolic 110 mm[Hg] [employer] [employer] 05-22-2019 10:37-0500 BSA (Body Surface Area) 1.77 m2 [facility] 05-22-2019 10:37-0500 Height 154.94 cm [employer] 05-22-2019 10:37-0500 Pulse (Heart Rate) 70 /min Nupur Deepthi Javedhard [facility] [employer] 02-12-2019 10:07-0400 BMI (Body Mass Index) 30.42 kg/m2 [facility] [employer] 02-12-2019 10:07-0400 Body weight 73.03 kg Nupur Lacey [employer] 02-12-2019 10:07-0400 BP Diastolic 64 mm[Hg] [employer] [facility] 02-12-2019 10:07-0400 BP Systolic 138 mm[Hg] [employer] [facility] 02-12-2019 10:07-0400 BSA (Body Surface Area) 1.77 m2 [employer] 02-12-2019 10:07-0400 Height 154.94 cm [facility] 02-12-2019 10:07-0400 Pulse (Heart Rate) 78 /min [facility]upur [employer] 11-28-2018 10:21040 BMI (Body Mass Index) 30.48 kg/m2 [facility] [employer] 11-28-2018 10:21040 Body weight 73.17 kg Nupur [email or web address] 11-28-2018 10:21-0400 BP Diastolic 74 mm[Hg] [employer] 11-28-2018 10:210400 BP Systolic 122 mm[Hg] [facility]up[facility] [employer] 11-28-2018 10:040 BSA (Body Surface Area) 1.77 m2 Fever 11-28-2018 10:040 Height 154.94 cm [employer]Xtech 11-28-2018 10:040 Pulse (Heart Rate) 80 /min Nupur [employer] 08-29-2018 10:16-0500 BMI (Body Mass Index) 30.23 kg/m2 [employer] 08-29-2018 10:16-0500 Body weight 72.58 kg Fever 08-29-2018 10:16-0500 BP Diastolic 60 mm[Hg] Fever 08-29-2018 10:16-0500 BP Systolic 132 mm[Hg] Fever 08-29-2018 10:16-0500 BSA (Body Surface Area) 1.77 m2 Fever 08-29-2018 10:16-0500 Height 154.94 cm Fever 08-29-2018 10:16-0500 Pulse (Heart Rate) 80 /min [employer] 05-30-2018 11:52-0500 BMI (Body Mass Index) 31.02 kg/m2 Fever 05-30-2018 11:52-0500 Body weight 73.26 kg Fever 05-30-2018 11:52-0500 BP Diastolic 72 mm[Hg] Fever 05-30-2018 11:52-0500 BP Systolic 144 mm[Hg] Fever 05-30-2018 11:52-0500 BSA (Body Surface Area) 1.77 m2 Fever 05-30-2018 11:52-0500 Height 153.67 cm Fever 05-30-2018 11:52-0500 Pulse (Heart Rate) 68 /min [employer] 02-28-2018 11:42-0400 BMI (Body Mass Index) 31.89 kg/m2 Fever 02-28-2018 11:42-0400 Body weight 75.3 kg Fever 02-28-2018 11:42-0400 BP Diastolic 76 mm[Hg] Nupur [email or web address] 02-28-2018 11:42-0400 BP Systolic 134 mm[Hg] Nupur Lacey [employer] 02-28-2018 11:42-0400 BSA (Body Surface Area) 1.79 m2 Fever 02-28-2018 11:42-0400 Height 153.67 cm [employer] 02-28-2018 11:42-0400 Pulse (Heart Rate) 80 /min [employer] 11-29-2017 11:28-0400 BP Diastolic 74 mm[Hg] Fever 11-29-2017 11:28-0400 BP Systolic 132 mm[Hg] Fever 11-29-2017 11:28-0400 Pulse (Heart Rate) 84 /min [employer]Chooos 08-30-2017 10:29-0500 BMI (Body Mass Index) 31.69 kg/m2 Fever 08-30-2017 10:29-0500 Body weight 74.84 kg Fever 08-30-2017 10:29-0500 BP Diastolic 62 mm[Hg] Fever 08-30-2017 10:29-0500 BP Systolic 136 mm[Hg] Fever 08-30-2017 10:29-0500 BSA (Body Surface Area) 1.79 m2 Fever 08-30-2017 10:0500 Height 153.67 cm Fever 08-30-2017 10:290500 Pulse (Heart Rate) 78 /min [employer] Deepthi [employer] 05-29-2017 10:190500 BMI (Body Mass Index) 31.24 kg/m2 Fever 05-29-2017 10:050 Body weight 74.39 kg Fever 05-29-2017 10:190500 BP Diastolic 72 mm[Hg] Fever 05-29-2017 10:190500 BP Systolic 138 mm[Hg] Fever 05-29-2017 10:19050 BSA (Body Surface Area) 1.79 m2 Fever 05-29-2017 10:050 Height 154.31 cm Fever 05-29-2017 10:190500 Pulse (Heart Rate) 86 /min Nupur Deepthi [employer]venta 03-01-2017 10:130400 BMI (Body Mass Index) 31.15 kg/m2 Fever 03-01-2017 10:130400 Body weight 74.16 kg Fever 03-01-2017 10:130400 BP Diastolic 74 mm[Hg] Nupur Schworm [employer] 03-01-2017 10:130400 BP Systolic 146 mm[Hg] Nupur Lacey [employer] 03-01-2017 10:130400 BSA (Body Surface Area) 1.78 m2 Nupur [employer]s [employer] Edgewood[employer]ah [employer] 03-01-2017 10:13040 Height 154.31 cm [employer]ConXtech 03-01-2017 10:13-0400 Pulse (Heart Rate) 72 /min NupurGO Outdoors [facility] [employer] 11-16-2016 11:18-0400 BP Diastolic 76 mm[Hg] [employer] 11-16-2016 11:18-0400 BP Systolic 142 mm[Hg] Fever 11-16-2016 10:17-0400 BMI (Body Mass Index) 31.15 kg/m2 Fever 11-16-2016 10:17-0400 Body weight 74.16 kg [employer]ConXtech 11-16-2016 10:17-0400 BP Diastolic 72 mm[Hg] Fever 11-16-2016 10:17-0400 BP Systolic 152 mm[Hg] Fever 11-16-2016 10:17-0400 BSA (Body Surface Area) 1.78 m2 Fever 11-16-2016 10:17-0400 Height 154.31 cm Fever 11-16-2016 10:17-0400 Pulse (Heart Rate) 72 /min Nupur [employer] 08-17-2016 11:49-0500 BMI (Body Mass Index) 30.84 kg/m2 Nupur Lacey [employer] 08-17-2016 11:49-0500 Body weight 74.53 kg Nupur [email or web address] 08-17-2016 11:49-0500 BP Diastolic 60 mm[Hg] Fever 08-17-2016 11:49-0500 BP Systolic 128 mm[Hg] [employer] 08-17-2016 11:49-0500 BSA (Body Surface Area) 1.79 m2 [employer] 08-17-2016 11:49-0500 Height 155.45 cm [employer] 08-17-2016 11:49-0500 Pulse (Heart Rate) 70 /min Nupur [employer] 05-11-2016 11:22-0400 BMI (Body Mass Index) 30.3 kg/m2 Nupur [email or web address] 05-11-2016 11:22-0400 Body weight 73.94 kg [employer] 05-11-2016 11:22-0400 BP Diastolic 70 mm[Hg] [employer] 05-11-2016 11:22-0400 BP Systolic 144 mm[Hg] Fever 05-11-2016 11:22-0400 BSA (Body Surface Area) 1.79 m2 Fever 05-11-2016 11:220400 Height 156.21 cm Fever 05-11-2016 11:22-0400 Pulse (Heart Rate) 68 /min Nupur [employer] 02-10-2016 10:38-0400 BMI (Body Mass Index) 29.18 kg/m2 Fever 02-10-2016 10:38-0400 Body weight 71.22 kg Fever 02-10-2016 10:38-0400 BP Diastolic 70 mm[Hg] Fever 02-10-2016 10:38-0400 BP Systolic 140 mm[Hg] Fever 02-10-2016 10:38-0400 BSA (Body Surface Area) 1.76 m2 Fever 02-10-2016 10:38-0400 Height 156.21 cm Fever 02-10-2016 10:38-0400 Pulse (Heart Rate) 78 /min Nupur Deepthi [employer] 11-11-2015 10:40-0400 BMI (Body Mass Index) 29.74 kg/m2 Fever 11-11-2015 10:40-0400 Body weight 72.58 kg Fever 11-11-2015 10:40-0400 BP Diastolic 70 mm[Hg] Nupurmary anne [email or web address] 11-11-2015 10:40-0400 BP Systolic 120 mm[Hg] Nupurmary anne [email or web address] 11-11-2015 10:40-0400 BSA (Body Surface Area) 1.77 m2 Fever 11-11-2015 10:40-0400 Height 156.21 cm Fever 11-11-2015 10:40-0400 Pulse (Heart Rate) 80 /min [employer] 08-05-2015 10:31-0500 BMI (Body Mass Index) 30.17 kg/m2 Fever 08-05-2015 10:31-0500 Body weight 73.03 kg Fever 08-05-2015 10:31-0500 BP Diastolic 74 mm[Hg] Fever 08-05-2015 10:31-0500 BP Systolic 124 mm[Hg] Fever 08-05-2015 10:31-0500 BSA (Body Surface Area) 1.78 m2 Fever 08-05-2015 10:31-0500 Height 155.57 cm Fever 08-05-2015 10:31-0500 Pulse (Heart Rate) 72 /min [employer] 04-22-2015 10:38-0400 BMI (Body Mass Index) 29.72 kg/m2 Nupur Lacey [employer]Pano [employer] 04-22-2015 10:38-0400 Body weight 73.71 kg Nupur Lacey [facility] [employer] 04-22-2015 10:38-0400 BP Diastolic 72 mm[Hg] Nupur [employer]s [employer] Edgewoodsarah [facility]Select [facility] [employer] 04-22-2015 10:38-0400 BP Systolic 156 mm[Hg] [employer] 04-22-2015 10:38-0400 BSA (Body Surface Area) 1.8 m2 [employer] 04-22-2015 10:38-0400 Height 157.48 cm Nupur Varonis [employer] 04-22-2015 10:38-0400 Pulse (Heart Rate) 80 /min Nupur Deepthi Javedhard [facility] [employer] 01-20-2015 10:08-0400 BMI (Body Mass Index) 30.45 kg/m2 Nupur [employer]ah [employer] 01-20-2015 10:08-0400 Body weight 75.52 kg Nupur [employer] Santos [employer] 01-20-2015 10:08-0400 BP Diastolic 66 mm[Hg] Nupur Varonis SystemsncP[employer] 01-20-2015 10:08-0400 BP Systolic 126 mm[Hg] [employer] 01-20-2015 10:08-0400 BSA (Body Surface Area) 1.82 m2 [facility] Santos [employer] 01-20-2015 10:08-0400 Height 157.48 cm NupurINTREorg SYSTEMS [employer] 01-20-2015 10:08-0400 Pulse (Heart Rate) 74 /min Nupur Deepthi [employer] 09-22-2014 10:42-0400 BMI (Body Mass Index) 32.19 kg/m2 Fever 09-22-2014 10:42-0400 Body weight 79.83 kg Fever 09-22-2014 10:42-0400 BP Diastolic 68 mm[Hg] Fever 09-22-2014 10:42-0400 BP Systolic 124 mm[Hg] Fever 09-22-2014 10:42-0400 BSA (Body Surface Area) 1.87 m2 Fever 09-22-2014 10:42-0400 Height 157.48 cm Fever 09-22-2014 10:42-0400 Pulse (Heart Rate) 74 /min Nupur Deepthi [employer] 06-16-2014 10:46-0500 BMI (Body Mass Index) 31.82 kg/m2 NupurConXtech 06-16-2014 10:46-0500 Body weight 78.93 kg Fever 06-16-2014 10:46-0500 BP Diastolic 78 mm[Hg] Fever 06-16-2014 10:46-0500 BP Systolic 150 mm[Hg] Nupur [employer] 06-16-2014 10:46-0500 BSA (Body Surface Area) 1.86 m2 Fever 06-16-2014 10:46-0500 Height 157.48 cm Fever 06-16-2014 10:46-0500 Pulse (Heart Rate) 84 /min Nupur Deepthi [employer] 03-17-2014 11:58-0400 BMI (Body Mass Index) 31.92 kg/m2 Fever 03-17-2014 11:58-0400 Body weight 79.15 kg Fever 03-17-2014 11:58-0400 BP Diastolic 66 mm[Hg] Fever 03-17-2014 11:58-0400 BP Systolic 112 mm[Hg] Fever 03-17-2014 11:58-0400 BSA (Body Surface Area) 1.86 m2 Fever 03-17-2014 11:58-0400 Height 157.48 cm Fever 03-17-2014 11:58-0400 Pulse (Heart Rate) 76 /min NupurChooos 12-16-2013 12:18-0400 BMI (Body Mass Index) 31.46 kg/m2 Fever 12-16-2013 12:18-0400 Body weight 78.02 kg Fever 12-16-2013 12:18-0400 BP Diastolic 86 mm[Hg] Nupur JavedPano [employer] 12-16-2013 12:18-0400 BP Systolic 126 mm[Hg] Nupur [employer]avedP[employer] 12-16-2013 12:18-0400 BSA (Body Surface Area) 1.85 m2 Nupur [employer]avedP[employer] 12-16-2013 12:18-0400 Height 157.48 cm Nupur [employer]ah [employer] 12-16-2013 12:18-0400 Pulse (Heart Rate) 68 /min Nupur Deepthi [employer] 03-21-2013 10:04-0400 Body weight 77.79 kg Nupurmary anne Lacey [employer] 03-21-2013 10:04-0400 BP Diastolic 70 mm[Hg] Nupurmary anne Lacey [employer] 03-21-2013 10:04-0400 BP Systolic 150 mm[Hg] Nupurmary anne Lacey [employer] 03-21-2013 10:04-0400 Pulse (Heart Rate) 84 /min Nupur [employer] 11-15-2012 10:18-0400 Body Temperature 97.8 [degF] Nupur Deepthi [employer] 11-15-2012 10:18-0400 Body weight 76.66 kg Nupur [employer] 11-15-2012 10:18-0400 BP Diastolic 70 mm[Hg] Fever 11-15-2012 10:180400 BP Systolic 138 mm[Hg] Nupurbest [place] [employer] 11-15-2012 10:18040 Pulse (Heart Rate) 68 /min Nupur Navarro [facility] [employer] Encounters Encounter Date Encounter Type Care Provider Facility Start: 01-31-2024 Medicare Lab Patrice L Funmie clifton Other [facility] Start: 01-31-2024 Office outpatient vi sit 25 minutes Nupur S Schworm Other [facility] Start: 12-10-2023 End: 12-10-2023 ambulatory [facility] Work Phone: Start: 12-10-2023 End: 12-10-2023 Patient encounter procedure [facility] Work Phone: Start: 11-01-2023 Medicare Lab Patricesophia Choudharye clifton Other [facility] Start: 11-01-2023 Office outpatient vi sit 25 minutes Nupur S Schworm Other [facility] Start: 09-12-2023 Telephone encounter Juanita Campoverde CMA [facility] Start: 09-05-2023 Orders Only Ynes Bermudez RMA [facility] Comment on above: Diarrhea, unspecifie d type; Colon cancer metastasized to liver ([facility]) Start: 09-04-2023 End: 09-04-2023 ambulatory Paulette Voss Facility:[facility] Start: 09-04-2023 End: 09-04-2023 ambulatory DO Paulette Voss Work Phone: [facility] Work Phone: Start: 09-04-2023 End: 09-04-2023 Departed Referred DO Paulette Voss Work Phone: [facility] Start: 08-16-2023 End: 08-17-2023 ambulatory PAULETTE VOSS [facility] Start: 08-15-2023 End: 08-15-2023 ambulatory ALEXANDRE BHANDARI [facility] Start: 08-02-2023 Medicare Lab Patrice L Funmie clifton Other [facility] Start: 08-02-2023 Office outpatient vi sit 25 minutes Nupur S Schworm Other [facility] Start: 06-26-2023 End: 06-26-2023 Patient encounter procedure DO Paulette Voss Work Phone: [facility] Work Phone: Start: 06-20-2023 End: 06-20-2023 ambulatory Gloria Jesica Other [employer] Other Start: 06-20-2023 Nursing evaluation o f patient and report Gloria Mooney [facility] Start: 06-13-2023 End: 06-13-2023 ambulatory Gloria Mooney Other [employer] Other Start: 06-13-2023 Office outpatient ne w 30 minutes Gloria Mooney [facility] Start: 06-13-2023 End: 06-13-2023 Patient encounter procedure DO Paulette Voss Work Phone: [facility] Work Phone: Start: 05-02-2023 Medicare Lab Patrice L Funmie clifton Other [facility] Start: 05-02-2023 Office outpatient vi sit 25 minutes Nupur S Schworm Other [facility] Start: 02-27-2023 Office Services Bebeto Victor and Other [facility] Start: 01-30-2023 Medicare Lab Patrice L Sandrine clifton Other [facility] Start: 01-30-2023 Office outpatient vi sit 25 minutes Nupur S Schworm Other [facility] Start: 11-27-2022 Office Services Bebeto P September and Other [facility] Start: 11-17-2022 End: 11-17-[address] CHINEDU SEVILLA Facility: Start: 10-31-2022 Medicare Lab Patrice L Schroe clifton Other [facility] Start: 10-31-2022 Office outpatient vi sit 25 minutes Nupur S Schworm Other [facility] Start: 09-26-2022 Office Services Bebeto P September and Other [facility] Start: 09-11-2022 Office Services Bebeto P September and Other [facility] Start: 09-11-2022 Office outpatient ne w 30 minutes Bebeto P Ginger Other [facility] Start: 08-02-2022 Medicare Lab Patrice L Schroe clifton Other [facility] Start: 08-02-2022 Office outpatient vi sit 25 minutes Nupur S Schworm Other [facility] Start: 07-10-2022 End: 07-10-2022 ambulatory LAN [facility] Start: 07-10-2022 End: 07-10-2022 Subsequent hospital visit by physician Eyal Sanchez MD Work Phone: [facility] Start: 05-02-2022 Medicare Lab Patrice L Schroe clifton Other [facility] Start: 05-02-2022 Office outpatient vi sit 25 minutes Nupur S Schworm Other [facility] Start: 01-30-2022 Medicare Lab Patrice L Schroe clifton Other [facility] Start: 01-30-2022 Office outpatient vi sit 25 minutes Nupur S Schworm Other [facility] Start: 10-31-2021 Medicare Lab Nupur S Schwor m Other [facility] Start: 10-31-2021 Office outpatient vi sit 25 minutes Nupur S Schworm Other [facility] Start: 08-02-2021 Medicare Lab Nupur S Schwor m Other [facility] Start: 08-02-2021 Office outpatient vi sit 25 minutes Nupur S Schworm Other [facility] Start: 05-02-2021 Medicare Lab Patrice L Funmie clifton Other [facility] Start: 05-02-2021 Office outpatient vi sit 25 minutes Nupur S Schworm Other [facility] Start: 02-02-2021 Medicare Lab Patrice L Funmie clifton Other [facility] Start: 02-02-2021 Office outpatient vi sit 25 minutes Nupur S Schworm Other [facility] Start: 10-20-2020 Medicare Lab Nupur S Schwor m Other [facility] Start: 10-20-2020 Office outpatient vi sit 25 minutes Nupur S Schworm Other [facility] Office Start: 08-10-2020 Office Services Luciana carter Other [facility] Office Start: 07-21-2020 Medicare Lab Nupur S Schwor m Other [facility] Start: 07-21-2020 Office outpatient vi sit 25 minutes Nupur S Schworm Other [facility] Start: 04-14-2020 Medicare Lab Patrice L Sandrine clifton Other [facility] Start: 04-14-2020 End: 04-14-2020 Office Services Nupur S Schworm Other [facility] Start: 04-14-2020 Office outpatient vi sit 25 minutes Nupur S Schworm Other [facility] Start: 01-14-2020 Medicare Lab Patrice L Funmie clifton Other [facility] Start: 01-14-2020 Office outpatient vi sit 25 minutes Nupur S Schworm Other [facility] Office Start: 10-02-2019 Office Services Lucianachriss carter Other [facility] Office Start: 08-21-2019 Medicare Lab Nupur S Schwor m Other [facility] Start: 08-21-2019 Foot exam performed Lupe gibson Other [facility] Start: 08-21-2019 Office outpatient vi sit 25 minutes Lupe Mccabe Other [facility] Office Start: 05-22-2019 Medicare Lab Nupur S Schwor m Other [facility] Start: 05-22-2019 Office outpatient vi sit 25 minutes Nupur S Schworm Other [facility] Office Start: 02-12-2019 Medicare Lab Nupur S Schwor m Other [facility] Start: 02-12-2019 Office outpatient vi sit 25 minutes Nupur S Schworm Other [facility] Office Start: 11-28-2018 Lab Nupur S Schwor m Other [facility] Office Start: 11-28-2018 Office outpatient vi sit 25 minutes Nupur S Schworm Other [facility] Office Start: 08-29-2018 Office Services Patrice Choudharye clifton Other [facility] Office Start: 08-29-2018 Office outpatient vi sit 25 minutes Nupur S Schworm Other [facility] Office Start: 05-30-2018 Office Services Patrice Choudharye clifton Other [facility] Office Start: 05-30-2018 Office outpatient vi sit 15 minutes Nupur S Schworm Other [facility] Office Start: 02-28-2018 Office Services Patrice Efren Deluca clifton Other [facility] Office Start: 02-28-2018 Office outpatient vi sit 25 minutes Nupur S Schworm Other [facility] Office Start: 11-29-2017 Office outpatient vi sit 25 minutes Nupur S Schworm Other [facility] Office Start: 11-29-2017 Office Services Nupur S Schwor m Other [facility] Office Start: 08-30-2017 Office Services Nupur S Schwor m Other [facility] Office Start: 08-30-2017 Office outpatient vi sit 25 minutes Patrice Suarez Other [facility] Office Start: 05-29-2017 Office Services Nupur S Schwor m Other [facility] Office Start: 05-29-2017 Office outpatient vi sit 25 minutes Patrice Suarez Other [facility] Office Start: 03-01-2017 Office outpatient vi sit 25 minutes Nupur S Schworm Other [facility] Office Start: 03-01-2017 Lab Nupur S Schwor m Other [facility] Office Start: 11-16-2016 Office outpatient ne w 20 minutes Farhat Nunn Other [facility] Office Start: 11-16-2016 Lab Nupur S Schwor m Other [facility] Office Start: 11-16-2016 Office outpatient vi sit 25 minutes Nupur S Schworm Other [facility] Office Start: 08-17-2016 Lab Patrice L Funmie clifton Other [facility] Office Start: 08-17-2016 End: 08-17-2016 Office Services Nupur S Schworm Other [facility] Office Start: 08-17-2016 Office outpatient vi sit 25 minutes Nupur S Schworm Other [facility] Office Start: 05-11-2016 End: 05-11-2016 Office Services Nupur S Schworm Other [facility] Office Start: 05-11-2016 Office outpatient vi sit 25 minutes Nupur S Schworm Other [facility] Office Start: 02-10-2016 Lab Nupur S Schwor m Other [facility] Office Start: 02-10-2016 Office outpatient vi sit 25 minutes Nupur S Schworm Other [facility] Office Start: 11-11-2015 Lab Nupur S Schwor m Other [facility] Office Start: 11-11-2015 Office outpatient vi sit 25 minutes Nupur S Schworm Other [facility] Office Start: 08-05-2015 Office outpatient vi sit 25 minutes Nupur S Schworm Other [facility] Office Start: 08-05-2015 Office Services Nupur S Schwor m Other [facility] Office Start: 04-22-2015 Lab Nupur S Schwor m Other [facility] Office Start: 04-22-2015 Office outpatient vi sit 25 minutes Nupur S Schworm Other [facility] Office Start: 01-20-2015 Lab Patrice L Schroe clifton Other [facility] Office Start: 01-20-2015 Office outpatient vi sit 25 minutes Nupur S Schworm Other [facility] Office Start: 09-22-2014 Foot exam performed Patrice L Sc hroeder Other [facility] [employer] Start: 09-22-2014 Office outpatient vi sit 25 minutes Patrice L Suarez Other [facility] Office Start: 09-22-2014 Lab Patrice L Schroe clifton Other [facility] Office Start: 06-16-2014 Foot exam performed Patrice L Sc hroeder Other [facility] Office Start: 03-17-2014 Medicare Lab Patrice L Schroe clifton Other [facility] Start: 03-17-2014 Foot exam performed Patrice Koenig hroeder Other [facility] Start: 12-16-2013 Medicare Lab Patrice Deluca clifton Other [facility] Start: 12-16-2013 Foot exam performed Patrice Koenig hroeder Other [facility] Start: 12-02-2013 Medicare Lab Patrice Deluca clifton Other [facility] Start: 03-21-2013 End: 03-21-2013 Office Services Patrice Suarez Other [facility] Start: 11-15-2012 End: 11-15-2012 Office Services Patrice Suraez Other [facility] Office Start: 07-19-2012 Voided Visit Patrice Deluca clifton Other [facility] Office Start: 07-19-2012 Office Services Patrice Deluca clifton Other [facility] Office Procedures Date Procedure Procedure Detail Performing Clinician Start: 01-31-2024 Cortisol measurement Carlita Suarez Start: 01-31-2024 Erythrocyte mean cor puscular volume determination Patrice Suarez Start: 01-31-2024 Glucose measurement, quantitative Patrice Suarez Start: 01-31-2024 Hemoglobin A1c measurement Patrice Suarez Start: 01-31-2024 BS-Dip Patrice Schr oeder Start: 11-01-2023 Glucose measurement, quantitative Patrice Choudharyeder Start: 11-01-2023 Hemoglobin A1c measurement Patricesophia ChoudharySuarez Start: 11-01-2023 Lipid panel Patrice Schr oeder Start: 11-01-2023 MICROALBUMIN/Urine C reat Ratio Patrice Suarez Start: 11-01-2023 Thyroid stimulating hormone measurement Patrice Suarez Start: 11-01-2023 Thyroxine measurement L amnasophia Suarez Start: 11-01-2023 BS-Dip Patrice Schr oeder Start: 09-04-2023 End: 09-04-2023 Mckayla Bhandrai APRN-[facility] Work Phone: Start: 08-02-2023 Basic metabolic pane l calcium total Patrice Suarez Start: 08-02-2023 Hemoglobin A1c measurement Patrice Suarez Start: 08-02-2023 MICROALBUMIN/Urine C reat Ratio Patrice Suarez Start: 08-02-2023 Thyroid stimulating hormone measurement Patrice Suarez Start: 08-02-2023 Thyroxine measurement L wood Suarez Start: 08-02-2023 Blood chemistry Patrice S [...] oeder Start: 02-25-2023 Docrev cur meds by elig clin Bebeto Miles Start: 01-30-2023 Basic metabolic pane l calcium total Patrice Suarez Start: 01-30-2023 Hemoglobin A1c measurement Patrice Suarez Start: 01-30-2023 MICROALBUMIN/Urine C reat Ratio Patrice Suarez Start: 01-30-2023 Blood chemistry Patrice S chroeder Start: 01-30-2023 BS-Dip Patrice Schr oeder Start: 11-25-2022 Docrev cur meds by elig clin Bebeto Mlies Start: 11-15-2022 Adult depression scr eening assessment Ynes Bermudez RMA Start: 10-31-2022 Basic metabolic pane l calcium total Bebeto Miles Start: 10-31-2022 Docrev cur meds by elig clin Bebeto Miles Start: 10-31-2022 Glucose measurement by monitoring device Patrice Daniela Start: 10-31-2022 Hemoglobin A1c measurement Bebeto Miles Start: 10-31-2022 Lipid panel Bebeto anderson Start: 10-31-2022 Thyroid stimulating hormone measurement Bebeto Miles Start: 10-31-2022 Thyroxine measurement Princess Miles Start: 10-31-2022 X-ray of left foot Hieu nina Ginger Start: 10-31-2022 Blood chemistry Bebeto Ginger Start: 10-31-2022 BS-Dip Bebeto anderson Start: 09-25-2022 Docrev cur meds by [facility] Bebeto [facility] Start: 09-25-2022 X-ray of left foot Hieu nina Ginger Start: 09-11-2022 Docrev cur meds by [facility] clin Bebeto [facility] Start: 09-11-2022 X-ray of left foot Hieu nina Ginger Start: 08-02-2022 Alanine aminotransfe rase measurement Patrice Suarez Start: 08-02-2022 Basic metabolic pane l calcium total Patrice Suarez Start: 08-02-2022 Docrev cur meds by casper Suarez Start: 08-02-2022 Hemoglobin A1c measurement Patrice Suarez Start: 08-02-2022 Lipid panel Patrice roman Start: 08-02-2022 MICROALBUMIN/Urine C reat Ratio Patrice [...] Phone: Start: 05-21-2022 Diabetic retinal eye exam Yneschriss Bermudez RMA Start: 05-02-2022 Basic metabolic pane l calcium total Patrice Suarez Start: 05-02-2022 Docrev cur meds by casper Suarez Start: 05-02-2022 Glucose measurement by monitoring [...] 08-02-2021 Blood chemistry Nupur S chworm Start: 01-19-2022 Dip UA (for Ketones) We ndi Schworm [...] Patrice Suarez Start: 07-16-2020 Thyroxine measurement L eroy Suarez Start: 04-15-2020 Basic metabolic pane l calcium total Patrice Suarez Start: 04-15-2020 Hemoglobin A1c measurement Patrice [...] Patrice Suarez Start: 11-20-2019 Thyroxine measurement L wood Suarez [...] 05-31-2018 Hemoglobin glycosylated a1c Nupur Schworm Start: 11-17-2018 Lipid panel Nupur Schw orm Start: 05-31-2018 [...] Patrice Suarez Start: 08-29-2017 Thyroxine measurement L eroy Suarez Start: 06-01-2017 Basic metabolic pane l calcium total Nupur Schworm Start: 06-01-2017 Hemoglobin A1c measurement Patrice Suarez Start: 06-01-2017 Hemoglobin glycosylated a1c Nupur [...] Nupur Schworm Start: 12-01-2013 Assay of c-peptide Wend i Schworm Start: 12-01-2013 Glucose measurement, quantitative Patrice Choudharyeder Start: 12-01-2013 Glucose quantitative blood xcpt reagent strip Nupur Schworm Start: 12-01-2013 Immunoassay analyte quant radioimmunoassay Nupur Schworm Start: 12-01-2013 Insulin C-peptide measurement Patrice Choudharyeder Start: 12-01-2013 Radioimmunoassay Patrice Choudharyeder Start: 07-21-2013 Alanine aminotransfe rase measurement Patrice [...] Suarez Start: 07-21-2013 Total thyroxine measurement Patrice Choudharyeder Start: 07-21-2013 Transferase alanine amino alt sgpt [...] Nupur Lacey Start: 03-21-2013 Lipid panel Nupur smith Start: 03-21-2013 Lipid panel Patrice roman Start: 03-21-2013 MICROALBUMIN/Urine C reat Ratio Nupur Lacey Start: 03-21-2013 Thyroid stimulating hormone measurement Patrice Suarez Start: 03-21-2013 Total thyroxine measurement Patrice Suarez Start: 03-21-2013 Transferase alanine amino alt sgpt Nupur Lacey Plan of Treatment Date Care Activity Detail Author Start: 09-04-2028 Screening for malign ant neoplasm of colon Colonoscopy [facility] Start: 08-15-2024 Adult BMI Screening Adult BMI Screen ing [facility] Start: 08-15-2024 Tobacco Screening Tobacco Screening [facility] Start: 05-02-2024 Basic metabolic pane l calcium total Chem 8 [employer] Start: 05-02-2024 Hemoglobin glycosyla tereso a1c Hemoglobin A1C [employer] [facility] Start: 05-02-2024 Lipid panel LIPID PROFILE [employer] [facility] Start: 01-31-2024 Continuous glucose monitoring analysis i&r GLUCOSE MONITOR INTERP AND REPORT [facility] Start: 11-16-2023 Depression Screening Depression Scre ening [facility] Start: 11-16-2023 Fall Risk Screening Fall Risk Screen ing [facility] Start: 11-16-2023 Medicare Annual Well ness Visit Medicare Annual Wellness Visit [facility] Start: 11-01-2023 Assay of thyroid stimulating hormone tsh TSH [facility] Start: 11-01-2023 Assay of thyroxine total T4 [facility] Start: 11-01-2023 Continuous glucose monitoring analysis i&r GLUCOSE MONITOR INTERP AND REPORT [facility] Start: 11-01-2023 Glucose quantitative blood xcpt reagent strip GLUCOSE [facility] [employer] [facility] Start: 11-01-2023 Hemoglobin glycosyla tereso a1c Hemoglobin A1C [facility] [employer] [facility] Start: 11-01-2023 Lipid panel LIPID PROFILE [facility] [employer] [facility] Start: 08-02-2023 Assay of thyroid stimulating hormone tsh TSH [facility] [employer] [facility] Start: 08-02-2023 Assay of thyroxine total T4 [facility] [employer] [facility] Start: 08-02-2023 Basic metabolic pane l calcium total Chem 8 Clay [employer] [facility] Start: 08-02-2023 Continuous glucose monitoring analysis i&r GLUCOSE MONITOR INTERP AND REPORT [facility] [employer] [facility] Start: 08-02-2023 Hemoglobin glycosyla tereso a1c Hemoglobin A1C [facility] [employer] [facility] Start: 05-21-2023 Glaucoma screening Diabetic Op hthalmology Exam [facility] Start: 05-02-2023 Basic metabolic pane l calcium total Chem 8 [employer] [facility] Start: 05-02-2023 Continuous glucose monitoring analysis i&r GLUCOSE MONITOR INTERP AND REPORT [facility] [employer] [facility] Start: 05-02-2023 Hemoglobin glycosyla tereso a1c Hemoglobin A1C [facility] [employer] [facility] Start: 05-02-2023 Lipid panel LIPID PROFILE [facility] [employer] [facility] Start: 03-15-2023 Influenza vaccination Influenza Vacc ine [facility] Start: 01-30-2023 Basic metabolic pane l calcium total Chem 8 [facility] [employer] [facility] Start: 01-30-2023 Continuous glucose monitoring analysis i&r GLUCOSE MONITOR INTERP AND REPORT [employer] [facility] Start: 01-30-2023 Hemoglobin glycosyla tereso a1c Hemoglobin A1C [employer] Start: 10-31-2022 Assay of thyroid stimulating hormone tsh TSH [employer] Start: 10-31-2022 Assay of thyroxine total T4 [employer] Start: 10-31-2022 Basic metabolic pane l calcium total Chem 8 [employer] Start: 10-31-2022 Continuous glucose monitoring analysis i&r GLUCOSE MONITOR INTERP AND REPORT [facility] Start: 10-31-2022 Hemoglobin glycosyla tereso a1c Hemoglobin A1C [employer] Start: 10-31-2022 Lipid panel LIPID PROFILE [employer] Start: 10-31-2022 X-ray of left foot [facility] [employer] Start: 08-02-2022 Basic metabolic pane l calcium total Chem 8 [employer] Start: 08-02-2022 Continuous glucose monitoring analysis i&r GLUCOSE MONITOR INTERP AND REPORT [facility] Start: 08-02-2022 Hemoglobin glycosyla tereso a1c Hemoglobin A1C [employer] Start: 08-02-2022 Lipid panel LIPID PROFILE [employer] Start: 08-02-2022 Transferase alanine amino alt sgpt SGPT (ALT) [facility] Start: 07-10-2022 End: 07-10-2022 EYE VITRECTOMY EYE VITRECTOMY Epiretinal membrane (ERM) of right eye 07/10/2022 11:22 AM [facility] Start: 05-02-2022 Continuous glucose monitoring analysis i&r GLUCOSE MONITOR INTERP AND REPORT [facility] Start: 02-12-2022 Influenza vaccination Flu vaccine (# 1) [facility] Start: 01-30-2022 Basic metabolic pane l calcium total Chem 8 [employer] Start: 01-30-2022 Continuous glucose monitoring analysis i&r GLUCOSE MONITOR INTERP AND REPORT [facility] Start: 01-30-2022 Hemoglobin glycosyla tereso a1c Hemoglobin A1C [employer] Start: 01-30-2022 Lipid panel LIPID PROFILE [employer] Start: 10-31-2021 Assay of thyroid stimulating hormone tsh TSH [employer] Start: 10-31-2021 Assay of thyroxine total T4 [facility] Start: 10-31-2021 Basic metabolic pane l calcium total Chem 8 [employer] Start: 10-31-2021 Continuous glucose monitoring analysis i&r GLUCOSE MONITOR INTERP AND REPORT [facility] Start: 10-31-2021 Hemoglobin glycosyla tereso a1c Hemoglobin A1C [employer] Start: 08-02-2021 Assay of thyroid stimulating hormone tsh TSH [employer] Start: 08-02-2021 Assay of thyroxine total T4 [employer] Start: 08-02-2021 Basic metabolic pane l calcium total Chem 8 [facility] Start: 08-02-2021 Continuous glucose monitoring analysis i&r GLUCOSE MONITOR INTERP AND REPORT [facility] Start: 05-05-2021 Assay of thyroid stimulating hormone tsh TSH [facility] Start: 05-05-2021 Assay of thyroxine total T4 [facility] Start: 05-05-2021 Basic metabolic pane l calcium total Chem 8 [facility] Start: 05-05-2021 Hemoglobin glycosyla tereso a1c Hemoglobin A1C [employer] Start: 02-02-2021 Continuous glucose monitoring analysis i&r GLUCOSE MONITOR INTERP AND REPORT [employer] Start: 01-19-2021 Basic metabolic pane l calcium total Chem 8 [employer] Start: 01-19-2021 HbA1c (Bld) [Mass fraction] Hemoglobin A1C [employer] Start: 01-19-2021 Lipid panel LIPID PROFILE [employer] Start: 10-20-2020 Continuous glucose monitoring analysis i&r GLUCOSE MONITOR INTERP AND REPORT [facility] Start: 10-20-2020 Glucose [Mass/Vol] GLUCOSE MON ITOR INTERP AND REPORT [facility] Start: 10-20-2020 T4 [Mass/Vol] T4 [employer] Start: 10-20-2020 TSH Qn TSH [employer] Start: 10-19-2020 Glucose quantitative blood xcpt reagent strip GLUCOSE 2 HR Post Prandial [facility] Start: 10-19-2020 HbA1c (Bld) [Mass fraction] Hemoglobin A1C [facility] Start: 07-21-2020 Glucose [Mass/Vol] GLUCOSE MON ITOR INTERP AND REPORT [facility] Start: 07-21-2020 SARS-Kuhn Virus-2 IgG Antibody to BV [facility]uhn [facility] [employer] [facility] Start: 07-16-2020 Basic metabolic pane l calcium total Chem 8 [facility] [employer] [facility] Start: 07-16-2020 HbA1c (Bld) [Mass fraction] Hemoglobin A1C [facility] [employer] [facility] Start: 07-16-2020 Lipid panel LIPID PROFILE [facility] [employer] [facility] Start: 07-16-2020 T4 [Mass/Vol] T4 [facility] [employer] [facility] Start: 07-16-2020 TSH Qn TSH [facility] [employer] [facility] Start: 04-15-2020 Basic metabolic pane l calcium total Chem 8 [facility] [employer] [facility] Start: 04-15-2020 HbA1c (Bld) [Mass fraction] Hemoglobin A1C [facility] [employer] [facility] Start: 04-15-2020 Lipid panel Lipid profile [facility] [employer] [facility] Start: 04-14-2020 Urate [Mass/Vol] Uric acid, serum Bl [facility] [employer] [facility] Start: 11-20-2019 Basic metabolic pane l calcium total Chem 8 [facility] [employer] [facility] Start: 11-20-2019 HbA1c (Bld) [Mass fraction] Hemoglobin A1C [facility] [employer] [facility] Start: 11-20-2019 T4 [Mass/Vol] T4 [facility] [employer] [facility] Start: 11-20-2019 TSH Qn TSH [employer] Start: 08-22-2019 Basic metabolic pane l calcium total Chem 8 [facility] [employer] [facility] Start: 08-22-2019 HbA1c (Bld) [Mass fraction] Hemoglobin A1C [facility] Start: 08-22-2019 Lipid panel Lipid profile [facility] Start: 05-15-2019 Basic metabolic pane l calcium total Chem 8 [facility] Start: 05-15-2019 HbA1c (Bld) [Mass fraction] Hemoglobin A1C [facility] Start: 02-28-2019 Basic metabolic pane l calcium total [facility] Start: 02-28-2019 HbA1c (Bld) [Mass fraction] Hemoglobin A1C [facility] Start: 02-28-2019 Hemoglobin glycosyla tereso a1c GLYCOSYLATED HEMOGLOBIN TEST [facility] Start: 02-28-2019 Lipid panel [facility] Start: 02-28-2019 T4 [Mass/Vol] T4 [facility] Start: 02-28-2019 TSH Qn TSH [facility] Start: 02-12-2019 Blood count complete automated CBC PLATELET COUNT; AUTOMATED [facility] Start: 02-12-2019 Glucose [Mass/Vol] GLUCOSE MON ITOR INTERP AND REPORT [facility] Start: 05-30-2018 Glucose [Mass/Vol] GLUCOSE MON ITOR INTERP AND REPORT [facility] Start: 1988 Screening for malign ant neoplasm of breast Mammogram [facility] Start: 11-07-1967 Administration of varicella zoster vaccine Zoster (Shingles) Vaccine (1 of 2) [facility] Start: 11-07-1967 DTaP,Tdap and Td Vaccines (1 - Tdap) DTaP,Tdap and Td Vaccines (1 - Tdap) [facility] Start: 11-07-1967 DTaP/Tdap/Td vaccine (1 - Tdap) DTaP/Tdap/Td vaccine (1 - Tdap) [employer] Start: 1966 Adult BMI Follow Up Plan Adult BMI Follow Up Plan [facility] Start: 1966 Diabetic foot examination Diabetic Foot Exam [facility] Start: 05-08-1949 COVID-19 Vaccine (#1) COVID-19 Vacci ne (#1) [facility] [employer] Start: 1950 Urine screening for protein Urine Microalbumin [facility] End: 07-10-2022 POC CHEM8 INCLUDES CALC. ANION GAP POC CHEM8 INCLUDES CALC. ANION GAP Point of Care Testing STAT One Time for 1 Occurrences starting 07/10/2022 until 07/10/2022 [facility] above: One Time for 1 Occur rences starting 07/10/2022 until 07/10/2022 Unhealing Lesion on Left leg [facility] Immunizations Immunization Date Immunization Notes Care Provider Kaila aguilar 05-22-2019 pneumococcal conjuga te vaccine, 13 valent; Translations: [PNEUMOCOCCAL VACC 13 CASSANDRA IM] Nupur Lacey [facility] 05-22-2019 PCV 13; Translations : [Administration of pneumococcal vaccine] Patrice Suarez [facility] Payers Date Payer Category Payer Self-pay [id number] 2019 Unknown [id number] 2019 Unknown [employer] [id number] 2019-Present [phone] [address] [address] [id number] 2013 Medicare MEDICARE MEDICAR E PART A & B [id number] 2013-Present [phone] [address] [place] [address] [id number] 1959 Medicare [id number] 1959 Unknown [id number] 1948 Unknown [id number] 1948 Unknown [id number] 1948 Unknown [id number] 1948 Unknown [id number] Unknown [id number] Unknown [id number] Unknown [id number] Social History Date Type Detail Facility Start: End: 12-10-2023 Never smoker [facility] Start: Caffeine [facility] Start: 07-05-2022 End: 11-15-2022 Tobacco use and exposure Smokeless tobacco non-user [employer] Phone: Start: 07-10-2022 Alcohol intake Lifetime non-drinker (finding) [employer] Phone: Start: 1950 Sex Assigned At Not on file B [employer] Phone: Start: 06-25-2022 End: 07-05-2022 Exposure to SARS-CoV-2 (event) Not sure [employer] Phone: Start: 11-16-2021 End: 08-15-2023 Sex Assigned At [employer] Start: 1950 Sex Assigned At Female F [facility] Start: 08-15-2023 Alcohol intake 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 Yes [facility] Are you now , , , , never or living with a partner? [facility] How often to you hav e a drink containing alcohol? Never [facility] How many standard dr inks containing alcohol do you have on a typical day? Patient does not drink [facility] Do you feel stress - tense, restless, nervous, or anxious, or unable to sleep at night because your mind is troubled all the time - these days [OSQ] Not at all [employer] Start: 10-23-2020 Education 12 [employer] NEGATED: Highlighted rowStart: JUAN M History of tobacco use Passive smoker [employer] Phone: Medical Equipment Procedure Code Equipment Code Equipment Origin al Text Equipment Identifier Dates TEST 3 TIMES BIANCA LY BEFORE & AFTER MEALS AND NEEDED. DX E10.9 TYPE 1 DIABETES INSULIN TREATED PUMP Start: 08-01-2021 End: 08-23-2022 Clinical Notes 09-30-2020 to 09-12-2023 Telephone Encounter - Juanita Campoverde, [facility] - 09/12/2023 9:30 AM ESTTelephone Encounter - Juanita Campoverde, [facility] - 09/12/2023 9:30 AM ESTTelephone Encounter - Juanita Campoverde, [facility] - 09/12/2023 9:30 AM EST Note Date [...] need another colonoscopy unless she has problems. ThanksDr. Carolina Spoke with patient regarding pathology results. Patient verbally understood with no further questions. documented in this encounter [facility] 09-12-2023 Telephone encount er Note ----- Message from Paulette Voss DO sent at 09/10/2023 7:10 AM EST ----- Please let patient know the biopsy was negative. She may follow up p.r.n.. She is 72 and does not need another colonoscopy unless she has problems. Thanks, Dr. Carolina [facility] 09-12-2023 Telephone encount er Note Spoke with patient regarding pathology results. Patient verbally understood with no further questions. [facility] 06-20-2023 Evaluation note Encounter Date Diagnosis Assessment [...] understanding and is agreeable to treatment plan. [employer] Other 11-30-2023 Evaluation note* Encounter Date Diagnosis Assessment Notes Treatment Notes Treatment Clinical Notes May, Type 1 diabetes mellitus without complication (ICD-10 - E10.9) Follows with Endocrinology every [address] Pan in [facility]. Last A1c was 6.0. Reports [...] Z85.038) Follows with Dr. Voss, has an [facility] a appointment in July. [employer] Other 12-27-2022 Hospital Discharge instructions* Discharge Instructions* [...] call your doctor documented in this encounterBON ON24 Phone: [phone]) 330-163103-25-2021 NoteHNO ID: [id number] Author: Farrah Dorsey) Delgado Service: ? Author [...] hemangioma : Discussed with GI oncology on [facility] and surgical oncology with plan to [...] MULTIPLE SMALL CYSTIC BERG (more content not included)...[facility]03-19-2021 NoteHNO ID: [id number] Author: Ramon Camp (Tech) Service: ? 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 Type: Progress Notes Filed: 09/30/2020 11:38 AM Note Text: Radiology Service Progress Note PATIENT NAME: Mariana Viveros DATE OF SERVICE: September 30, 2020 [...] BY: Ramon Camp September 30, 2020 10:22 [facility] Macular pucker, right eye- Primary Macular puckering of retina documented in this encounter [facility] Work Phone: evaluation noteNo assessment information available [facility] Work Phone: Evaluation note* Diagnosis Diarrhea, unspecified type Colon cancer metastasized to liver ([facility]) documented in this encounter [facility] System[facility] general Narrative - Reported* Type Description Date Medical History Type 1 diabetes Medical History Hypothyroid Medical History Colon CA- 2015 Surgical History Liver resection Surgical History Breast cyst removed- non cancer ous Surgical History x2 [employer] Other InstructionsNot on filedocumented in this encounter [facility] Summary Purpose Family History Relationship Condition Age [...] section and content) DATE CREATED AUTHOR 07/22/2020 [facility] DATE CREATED AUTHOR AUTHOR'S ORGANIZ ATION 09/05/2021 [facility] DATE CREATED AUTHOR AUTHOR'S ORGANIZ ATION 07/10/2022 [facility] DATE CREATED AUTHOR AUTHOR'S ORGANIZ ATION 11/18/2022 [facility] DATE CREATED AUTHOR AUTHOR'S ORGANIZ ATION 08/18/2023 [facility] DATE CREATED AUTHOR AUTHOR'S ORGANIZ ATION 08/18/2023 [facility] DATE CREATED AUTHOR AUTHOR'S ORGANIZ ATION 09/12/2023 [facility] Reason for Visit (unrecogniz ed section and content) Specialty Diagnoses / Procedures Referred By Az t Referred To Contact Diagnoses Epiretinal membrane (ERM) of right eye EPIRETINAL MEMBRANE RIGHT EYE Procedures IN OFFICE/OUTPT VISIT,PROCEDURE ONLY IN COLONOSCOPY FLX DX W/COLLJ SPEC WHEN PFRMD VITRECTOMY 25 GAUAGE, MEMBRANE PEEL Eyal Sanchez MD [address], [address] [place] [address] [facility] [address] [place] [address] Referral ID Status Reason Start Date Expiration Date Visits Re quested Visits Authorized [id number] 1 1 PRN Active and Recently Administ [...] on Sat07/10/22 at 0942, Until 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, Other, soil conservationist to OR, Pre-op (day of surgery) 1021 [...] 1202, Intra-op 1146 (Given - Provid er: Eayl Sanchez MD - Comment: DILUTED WITH 1 ML STERILE WATER, 2 ML BSS, 2 ML DEXTROSE 50% TO MAKE IT 5 MG/ML) ofloxacin (OCUFLOX) 0.3 % solution 1 drop (COMPLETED) 1 drop, Right Eye, EVERY 5 MIN PRN, 3 doses, Starting on Sat07/10/22 at 0942, Until 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, soil conservationist to OR, Pre-op (day of surgery) 1021 (Given - Provid er: Puja Colin RN)1027 (Given - Provider: Puja Colin RN)1047 (Given - Provider: Puja Colin RN) phenylephrine (MITALI-SYNEPHRINE) 10 % ophthalmic solution 1 drop (COMPLETED) 1 drop, Right Eye, EVERY 5 MIN PRN, 3 doses, Starting on Sat07/10/22 at 0942, Until 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, soil conservationist OR 07-10-22, Pre-op (day of surgery) 1022 [...] Care Teams (unrecognized sec tion and content) Health And Physical Education Teacher Relationship Specialty Start Date End Date Anatoliy Mckeon [address] [place] [address] [address] [place], [place] [id number] PCP - General Internal Medicine 07/03/22 Team Status: Inactive Member Role Status Dates Gloria Mooney APRN [employer]ianne Attending Provider Act delisa Start: June 13, 2023 End: June 13, 2023 Team Status: Inactive Member Role Status Dates Gloria Mooney APRN [employer]ne Attending Provider Act delisa Start: June 26, 2023 End: June 26, 2023 Team Status: Inactive Member Role Status Dates Paulette Voss DO Attending Provider Active Start: September 04, 2023 End: September 04, 2023 Health And Physical Education Teacher Relationship Specialty Start Date End Date Anatoliy Mckeon MD [address] [place] [address], [address] [place] [address] PCP - General Pediatrics 12/17/16 Health And Physical Education Teacher Relationship Specialty Start Date End Date Anatoliy Mckeon MD [address] [place] [address], [address] [place] [address] PCP - General Pediatrics 12/17/16 Team Status: Active Member Role Status Dates Gloria Mooney APRN [employer]ne Primary Care Provider Active Team Status: Inactive Member Role Status Dates Gloria Mooney APRN [employer] Primary Care Provider, Attending Provider Active Start: [...] BE BASED ON THE PRIMARY CLINICAL RECORDS. [facility] [employer] [facility]. provides no warranty or guarantee of the accuracy or completeness of information in this document.
== END 2024-02-10 10:31 | disposition home or self-care (01) ==
LOC: EC 10:30
PROVIDERS: PCP Nurse Practitioner Family; Visit Provider Orthopaedic Surgery
DX: S52.045D Nondisplaced fracture of coronoid process of left ulna, subsequent encounter for closed fracture with routine healing (principal); S52.125D Nondisplaced fracture of head of left radius, subsequent encounter for closed fracture with routine healing
CPT/HCPCS: 73080

== ENCOUNTER 2024-03-09 10:18 | Outpatient (OUT) | payer MEDICARE, OTHER, SELFPAY ==
--- NOTE | 2024-03-09 | XR_ITS ---
The [address] [address] Patient Name: LARISA VIVEROS MRN: [id number] date: 1950 Sex: F Assigned Patient Location: Current Patient Location: Accession/Order Number: [id number] Exam Date: 03/09/2024 10:20 Report Date: 03/10/2024 10:15 At the request of: BONIFACIO MALDONADO Procedure: XR elbow LT min 3V PROCEDURE: XR elbow LT min 3V HISTORY: LEFT ELBOW PAIN COMPARISON: XR elbow left 02/10/2024 FINDINGS: BONES:Persistent abrupt angulation of the radial neck at its junction with the head consistent with prior fracture. Decreasing band of density across the radial neck suggesting near complete healing. No irregularity of the articular surface. SOFT TISSUES:No visible soft tissue swelling. EFFUSION:None visible. OTHER: Negative. XR/XR elbow LT min 3V IMPRESSION: 1. Near complete osseous healing of prior radial neck fracture. Electronically authenticated by: BONIFACIO TOLEDO Date: 03/10/2024 10:15
--- NOTE | 2024-03-09 | XR_ITS ---
The [address] [address] Patient Name: LARISA VIVEROS MRN: [id number] date: 1950 Sex: F Assigned Patient Location: Current Patient Location: Accession/Order Number: [id number] Exam Date: 03/09/2024 10:22 Report Date: 03/10/2024 10:18 At the request of: BONIFACIO MALDONADO Procedure: XR hip LT 2V w/ pelvis PROCEDURE: XR hip LT 2V w/ pelvis HISTORY: LEFT HIP PAIN COMPARISON: None. FINDINGS: BONES:Narrowing of the hip joint spaces bilaterally. No fracture, dislocation, or significant periarticular osteophytes. SOFT TISSUES:Calcifications within pelvis favoring phleboliths. EFFUSION:None visible. OTHER: Electronic device overlying right iliac wing and right groin region. XR/XR hip LT 2V w/ pelvis IMPRESSION: 1. No appreciable acute abnormality. 2. 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 Electronically authenticated by: BONIFACIO TOLEDO Date: 03/10/2024 10:18
--- NOTE | 2024-03-09 | XR_ITS ---
The [address] [address] Patient Name: LARISA VIVEROS MRN: [id number] date: 1950 Sex: F Assigned Patient Location: Current Patient Location: Accession/Order Number: [id number] Exam Date: 03/09/2024 10:22 Report Date: 03/10/2024 10:22 At the request of: BONIFACIO MALDONADO Procedure: XR wrist LT min 3V PROCEDURE: XR wrist LT min 3V HISTORY: LEFT WRIST PAIN COMPARISON: XR wrist left 12/26/2023 FINDINGS: BONES:Degenerative changes of the first carpal-metacarpal joints and the scaphoid-trapezial joint. No fracture or dislocation. SOFT TISSUES:No visible soft tissue swelling. EFFUSION:None visible. OTHER: Negative. XR/XR wrist LT min 3V IMPRESSION: 1. No appreciable acute abnormality. 2. Stable degenerative changes. Electronically authenticated by: BONIFACIO TOLEDO Date: 03/10/2024 10:22
== END 2024-03-09 10:19 | disposition home or self-care (01) ==
LOC: EC 10:18
PROVIDERS: PCP Nurse Practitioner Family; Visit Provider Orthopaedic Surgery
DX: S52.045D Nondisplaced fracture of coronoid process of left ulna, subsequent encounter for closed fracture with routine healing (principal); S52.125D Nondisplaced fracture of head of left radius, subsequent encounter for closed fracture with routine healing
CPT/HCPCS: 73080; 73110; 73502

== ENCOUNTER 2024-04-15 10:34 | Outpatient (OUT) | payer MEDICARE, OTHER, SELFPAY ==
--- NOTE | 2024-04-15 10:37 | XR_ITS ---
The [address] [address] Patient Name: LARISA VIVEROS MRN: [id number] date: 1950 Sex: F Assigned Patient Location: [facility] Current Patient Location: [facility] Accession/Order Number: [id number] Exam Date: 04/15/2024 10:45 Report Date: 04/15/2024 15:39 At the request of: DANY DEL CASTILLO Procedure: XR DEXA axial skeleton EXAMINATION: XR DEXA axial skeleton, 04/15/2024 10:45 AM EDT HISTORY: Screening for osteoporosis Z13.820, Postmenopausal Z78.0 COMPARISON: None. TECHNIQUE: Dual-energy X-ray absorptiometry (DEXA) bone density study performed for the axial skeleton. FINDINGS: Bone mineral density AP spine L1-L4 measures 1.118 g/sq cm. T score -0.5. Normal Bone mineral density right femoral neck measures 0.770 g/sq cm. T score -1.9. Osteopenia XR/XR DEXA axial skeleton IMPRESSION: Osteopenia. Moderate fracture risk Pharmacologic treatment recommendations * No uniform recommendation applies to all patients. Management plans must be individualized. * Consider initiating pharmacologic treatment in postmenopausal women and men >= 50 years of age who have the following: Primary fracture prevention: * T-score <= - 2.5 at the femoral neck, total hip, lumbar spine, 33% radius (some uncertainty with existing data) by DXA. * Low bone mass (osteopenia: T-score between - 1.0 and - 2.5) at the femoral neck or total hip by DXA with a 10-year hip fracture risk >= 3% or a 10-year major osteoporosis-related fracture risk >= 20% (i.e., clinical vertebral, hip, forearm, or proximal humerus) based on the [place]-adapted FRAXregistered model. Secondary fracture prevention: * Fracture of the hip or vertebra regardless of BMD [4, 5]. * Fracture of proximal humerus, pelvis, or distal forearm in persons with low bone mass (osteopenia: T-score between - 1.0 and - 2.5). The decision to treat should be individualized in persons with a fracture of the proximal humerus, pelvis, or distal forearm who do not have osteopenia or low BMD [12, 13]. Jeni MS, Caty SL, Valentin KL, Hero EM, Carlos Manuel KG, Benites AJ, Vera ES. The clinician's guide to prevention and treatment of osteoporosis. Osteoporos Int. 2021;33(10):6974-6987. doi: 10.1007/k80661-185-50487-b. Epub 2021Nov 09. Erratum in: Osteoporos Int. 2021Feb 08;: PMID: [id number]; PMCID: [id number]. Electronically authenticated by: OLLIE LYON Date: 04/15/2024 15:39
== END 2024-04-15 10:35 | disposition home or self-care (01) ==
LOC: RAD 10:34
PROVIDERS: PCP Nurse Practitioner Family; Visit Provider Nurse Practitioner Family
DX: Z13.820 Encounter for screening for osteoporosis (principal); Z78.0 Asymptomatic menopausal state; M85.88 Other specified disorders of bone density and structure, other site
CPT/HCPCS: 77080

== ENCOUNTER 2024-05-18 10:56 | Outpatient (OUT) | payer MEDICARE, OTHER, SELFPAY ==
--- NOTE | 2024-05-18 | XR_ITS ---
The [address] [address] Patient Name: LARISA VIVEROS MRN: [id number] date: 1950 Sex: F Assigned Patient Location: Current Patient Location: Accession/Order Number: [id number] Exam Date: 05/18/2024 11:00 Report Date: 05/18/2024 13:22 At the request of: BONIFACIO MALDONADO Procedure: XR chest 2V PROCEDURE: XR chest 2V DATE: 05/18/2024 11:00 AM EST COMPARISONS: 05/08/2024 CLINICAL INDICATION: 73 years Female CHEST PAIN FINDINGS: The cardiomediastinal silhouette and pulmonary vasculature are within normal limits. The lungs are clear. There is no evidence of pleural effusion or pneumothorax. Evidence of old left rib fractures, stable. No definite acute osseous abnormalities noted in these projections. Mild thoracic degenerative spondylosis, stable XR/XR chest 2V IMPRESSION: Stable chest. Electronically authenticated by: DAVIN MUNSON Date: 05/18/2024 13:22
== END 2024-05-18 10:57 | disposition home or self-care (01) ==
LOC: EC 10:57
PROVIDERS: PCP Nurse Practitioner Family; Visit Provider Orthopaedic Surgery
DX: R07.9 Chest pain, unspecified (principal)
CPT/HCPCS: 71046

== ENCOUNTER 2024-07-29 13:09 | Outpatient (OUT) | payer MEDICARE, OTHER, SELFPAY ==
[2024-07-29 13:30] LABS: Basophils Percent Auto 0.7 % (0.2-2.0); Eosinophils Percent Auto 0.2 % (0.9-7.0); Hematocrit 39.3 % (36.0-48.0); Hemoglobin 12.8 g/dL (12.0-16.0); Immature Granulocytes Abs Auto 0.01 10^3/uL (0.00-0.03); Immature Granulocytes Pct Auto 0.2 % (0.0-0.5); Lymphocytes Absolute Auto 1.5 10^3/uL (1.2-3.8); Lymphocytes Percent Auto 25.2 % (20.5-60.0); Mean Corpuscular HGB Conc 32.6 g/dL (29.9-35.2); Mean Corpuscular Hemoglobin 30.1 pg (26.7-34.0); Mean Corpuscular Volume 92.5 fL (81.0-99.0); Mean Platelet Volume 10.1 fL (9.5-13.5); Monocytes Absolute Auto 0.5 10^3/uL (0.3-0.8); Monocytes Percent Auto 7.5 % (1.7-12.0); Neutrophils Absolute Auto 4.1 10^3/uL (1.4-6.5); Neutrophils Percent Auto 66.2 % (43.0-75.0); Platelet Count 184 10^3/uL (150-450); Red Blood Count 4.25 10^6/uL (4.20-5.40); Red Cell Distribution Width 13.6 % (11.0-15.0); White Blood Count 6.1 10^3/uL (4.0-11.0)
[2024-07-29 13:47] LABS: Alanine Aminotransferase 38 U/L (14-59); Albumin Globulin Ratio 1.1; Albumin Level 3.5 g/dL (3.4-5.0); Alkaline Phosphatase 118 U/L (46-116); Anion Gap 8.9; Aspartate Amino Transferase 25 U/L (15-37); BUN Creatinine Ratio 22.6; Bilirubin Total 0.4 mg/dL (0.2-1.0); Carbon Dioxide 33.5 mmol/L (21.0-32.0); Chloride 107 mmol/L (98-107); Estimated GFR (African America >60 (>=60 mL/min/1.73m^2); Estimated GFR (Non-African Ame 59 (>=60 mL/min/1.73m^2); Globulin 3.1 g/dL; Glucose 96 mg/dL (74-106); Potassium 4.4 mmol/L (3.5-5.1); Sodium 145 mmol/L (136-145); Total Protein 6.6 g/dL (6.4-8.2)
[2024-07-29 13:58] LABS: Percent Iron Saturation 19.8 %
[2024-07-29 14:27] LABS: Internal Control Within Normal Limits; Occult Blood Negative
[2024-07-29 14:50] LABS: C. Difficile PCR NEGATIVE
== END 2024-07-29 13:10 | disposition home or self-care (01) ==
PROVIDERS: PCP Nurse Practitioner Family; Visit Provider Nurse Practitioner Family
DX: R19.7 Diarrhea, unspecified (principal); R10.11 Right upper quadrant pain; R53.82 Chronic fatigue, unspecified; Z86.39 Personal history of other endocrine, nutritional and metabolic disease
CPT/HCPCS: 36415; 80053; 83540; 83550; 85025; 87045; 87046; 87427; 87493; G0328

== ENCOUNTER 2024-08-05 07:03 | Outpatient (OUT) | payer MEDICARE, OTHER, SELFPAY ==
--- NOTE | 2024-08-05 | US_ITS ---
The [address] [address] Patient Name: LARISA VIVEROS MRN: [id number] date: 1950 Sex: F Assigned Patient Location: [place] Current Patient Location: [place] Accession/Order Number: [id number] Exam Date: 08/05/2024 07:07 Report Date: 08/05/2024 07:34 At the request of: DANY DEL CASTILLO Procedure: US right upper quadrant EXAM: US right upper quadrant HISTORY: Right upper quadrant pain COMPARISON: None. TECHNIQUE: Real-time ultrasound imaging of the right upper quadrant. Findings: Evaluation of pancreas is limited due to overlying bowel gas. The visualized portions are unremarkable. The hepatic parenchyma appears coarsened. No focal intrahepatic mass. The main portal vein is patent and demonstrates hepatopedal flow. The gallbladder is nondistended limiting its evaluation. There is sludge within the lumen. No gallbladder wall thickening or pericholecystic fluid. The technologist reports a negative sonographic Chacon's sign. No biliary ductal dilatation. The common bile duct measures 0.7 cm. The right kidney measures 11.2 cm. There is good corticomedullary differentiation. No renal stones or collecting system dilatation. No focal mass or perinephric fluid collection. US/US right upper quadrant IMPRESSION: 1. Coarsened hepatic parenchymal echotexture as can be seen with diffuse hepatocellular disease such as fatty infiltration. 2. Gallbladder sludge. Electronically authenticated by: GIAN PRESLEY Date: 08/05/2024 07:34
--- NOTE | 2024-08-05 | CT_ITS ---
[address] [address] Patient Name: LARISA VIVEROS MRN: [id number] date: 1950 Sex: F Assigned Patient Location: Current Patient Location: [place] Accession/Order Number: [id number] Exam Date: 08/05/2024 08:25 Report Date: 08/05/2024 13:03 At the request of: DANY DEL CASTILLO Procedure: CT abdomen pelvis wo/w con EXAMINATION: CT abdomen pelvis wo/w con HISTORY: Right upper quadrant pain Right upper quadrant pain COMPARISON: CT abdomen and pelvis 01/12/2015. Right upper quadrant ultrasound 08/05/2024. TECHNIQUE: Following administration of oral contrast, helical imaging of the abdomen and pelvis was performed. Following uneventful administration of IV contrast helical imaging is repeated. Multiplanar reformatted images are submitted. Dose reduction techniques were achieved by using: automated exposure control and/or adjustment of mA and /or kV according to patient size and/or use of iterative reconstruction technique. FINDINGS: ABDOMEN: LOWER CHEST: The imaged lung bases are clear. SOLID ORGANS: Liver is normal in morphology. The liver is enlarged. Hepatic vessels are patent. No focal hepatic lesion. Spleen, adrenal glands, pancreas, gallbladder and biliary ducts are all within normal limits. Kidneys are stable with extrarenal pelvises present. No true hydronephrosis. No urinary tract calculi. No hydronephrosis. BOWEL: Prior right partial colectomy with intact ileocolonic anastomosis. The stomach, proximal small bowel and imaged colon are normal in course and caliber. No bowel wall thickening. MESENTERY AND RETROPERITONEUM: There is no free fluid, fluid collection or adenopathy.. Abdominal aorta and IVC are intact. Aortic caliber is normal. Severe atherosclerotic calcifications of the abdominal aorta with heavy ostial calcifications at the origin of the celiac and particularly at the origin of the SMA. 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 ABDOMINAL WALL AND SOFT TISSUES: No acute abnormality. Multifocal adhesions between small bowel segments and anterior abdominal wall fascia. Rectus muscle diastasis with anterior abdominal wall hernia defect measuring 6.1 x 3.4 cm with extension of short segment of small bowel through the defect. No secondary bowel obstruction. OSSEOUS STRUCTURES: No acute osseous abnormality. PELVIS: [] GENITOURINARY: The distal ureters, urinary bladder, vagina, urethra, uterus, adnexa are within normal limits. However, endometrial thickening is noted on sagittal reconstructed images measuring up to 0.9 cm (image 58, series 11). No distal urinary tract calculi. BOWEL: Distal small bowel, rectosigmoid colon, appendix are intact. No bowel wall thickening. MESENTERY: There is no free fluid, fluid collection or adenopathy. VASCULATURE: Pelvic vasculature is patent. ABDOMINAL WALL AND SOFT TISSUES:No acute abnormality. OSSEOUS STRUCTURES: No acute osseous abnormality. CT/CT abdomen pelvis wo/w con IMPRESSION: 1. No acute abdominal or pelvic inflammatory process. 2. Extensive atherosclerotic calcifications throughout the abdominal aorta with at least 70% stenosis at the origin of the SMA due to calcified and noncalcified thrombus. Correlation with symptoms of postprandial pain is recommended. 3. Endometrial thickening measuring up to 0.9 cm. Pelvic ultrasound is recommended for further evaluation. 4. Prior right hemicolectomy with intact ileocolonic anastomosis. 5. No adenopathy. Electronically authenticated by: GARETT JOYA Date: 08/05/2024 13:03
--- OUTSIDE RECORDS SUMMARY | 2024-08-05 07:06 | XMS_ITS | CCD ---
Author Organization [facility] Inform ion Partnership [facility] Care Team Providers Care Cut Out Stitcher Name Role Phone Nupur Lacey Primary Care [...] Voss Attending Unavailable Paulette Voss Admitting Unavailable Patrcie Suarez Primary Care Physician Tato Mina Primary Care Physician Tato Obrien Unavailable Unavailable Josue Santana Attending Unavailable Josue Santana Admitting Unavailable Gloria Mooney Primary Care Unavailable Eyal Sanchez Jr Attending Unavailable No Referring Doc, No Ref Doc Referring Elizabeth vailaTato Orozco Primary Care Physician Wai le Allergies Allergy Classification Reported Allergen(s) Allergy Type Date of Onset Reaction(s) Facility HMG-CoA Reductase Inhibitors (statins) (1 source) Hmg-Coa Reductase Inhibitors (Statins) Drug Allergy myalgias, jaw tightens [facility] Comment on above: has taken simvastati n and atorvastatin Latex (1 source) Latex Substance Allergy [facility] (20 sources) Hmg-Coa Reductase Inhibitors (Statins); Translations: [[id number] REDUCTASE INHIBITORS] Allergy to substance (disorder) 3 myalgias, jaw tightens [facility] Comment on above: has taken simvastati n and atorvastatin (20 sources) Latex; Translations: [latex] Allergy to substance (disorder) 9 Rash [facility] (1 source) Desonide Drug Allergy [facility] (4 sources) ADHESIVE TAPE-SILICONES; Translations: [ADHESIVE TAPE-SILICONES] Propensity to adverse reactions to drug (disorder) 7 [facility] (1 source) Unable to Assess Drug allergy (disorder) 9 [facility] (1 source) Adhesive bandage; Translations: [Adhesive Bandage] Propensity to adverse reactions (disorder) Repository Medications Current Medications Medication Drug Class(es) [...] Insulin Analog Start: 12-03-2023 Insulin Glulisine U-100 100 unit/mL solution Active [id number] As Directed December 02, 2023 11:00pm Start: 09-25-2022 inject 100 [IU] by s [...] mg oral tablet (20 sources) l-Thyroxine Start: 08-04-2024 levothyroxine 100 mcg tablet 08/04/2024 TAKE 1 TABLET DAILY SATURDAY- SATURDAY, then TAKE 1/2 OF A TABLET on Saturday with only water on an empty stomach. ANAI MYLAN Start: 10-14-2023 take 1 tablet by corrina th once daily in the morning, then take 0.5 tablet by mouth once daily Levothyroxine 100 mcg tablet Active 0 PO Daily December 02, 2023 11:00pm 1 tablet in the morning on an [...] mcg) by oral route once daily ANAI Mylan Start: 06-17-2018 End: 08-05-2021 levothyroxine 100 mcg [...] drinks, or meds for 1/2hr after. ANAI AUSTIN BRAND take 1 tablet by corrina th [...] hours as needed APIDRA 100 UNITS/ML VIAL (15 sources) Start: 02-09-2021 End: 02-14-2021 APIDRA 100 [...] / zinc oxide 40 mg oral tablet (16 sources) Vitamin C End: 12-16-2013 take 2 tablets by mouth once daily I-Cyn 300 mcg-200 mg-27 mg-2 mg tablet take 2 tablets by oral route daily calcium & magnesium carbonates Oral (20 sources) End: 12-16-2013 calcium & magnesium carbonates Oral 12/16/2013 chlorhexidine gluconate 40 mg/ml medicated liquid soap (10 sources) Start: 09-11-2022 End: 09-25-2022 Hibiclens 4 [...] route daily take 1 capsule by mo uth in the morning, then take 1 capsule [...] Active chromium picolinate 0.4 mg oral tablet (14 sources) take 2 tablets by mo uth once daily chromium picolinate 400 mcg tablet take 2 tablets by oral route daily cinnamon bark 500 mg oral capsule (17 sources) take 2 capsules by m outh [...] route daily gabapentin 100 mg oral capsule (6 sources) Anti-epileptic Agent Start: 02-27-2023 End: 08-26-2023 gabapentin 100 mg capsule 02/27/2023 05/02/2023 Take 1 capsules (100 mg) by oral route at night I-Cyn 300 mcg-200 mg-27 mg-2 mg tablet (4 sources) take 2 tablets by mouth once daily I-Cyn 300 mcg-200 mg-27 mg-2 mg tablet take 2 tablets by oral route daily ICaps [phone] tuxk-ne-my-unit oral tablet extended release (20 sources) End: 01-20-2015 take 2 tablets by mouth once daily ICaps 3,446-7-945-75 ttsf-vf-ml-unit oral tablet extended release 01/20/2015 take 2 [...] mg oral tablet (20 sources) End: 12-17-19 Ocuvite with Lutein 1,000 unit-200 mg-60 unit-2 [...] one tablet one a week PreserVision AREDS-2 [phone] zv-tfkz-dn-mg oral capsule (20 sources) End: 05-22-20 19 take 1 capsule by mouth twice daily PreserVision AREDS-2 [phone] kj-ooeb-do-mg oral capsule 05/22/2019 take 1 capsule by oral route 2 times a day take 1 capsule by mouth twice da grace PreserVision AREDS-2 [phone] yb-hwvm-hx-mg oral capsule take 1 capsule by oral [...] every 8 hours vitamin B complex tablet (12 sources) take 2 tablets by mouth once [...] oral route daily zinc 50 mg tablet (14 sources) take 1 tablet by mouth once daily zinc 50 mg tablet take 1 tablet by oral route daily Problems Active Problems Problem Classification Problem Date Documented Da te Episodic/Chronic Abdominal pain (2 sources) Right upper quadrant pain; Translations: [Right upper quadrant pain] 07-28-2024 Episodic Acquired foot deformities (16 sources) Other hammer toe(s) (acquired), right foot Onset: 09-10-2022 Chronic Cancer of colon (20 sources) Malignant neoplasm of colon, unspecified site; Translations: [Malignant tumor of colon] Onset: 01-20-2015 09-05-2023 Chronic Cancer of colon (5 sources) History of malignant neoplasm of colon; [...] sources) Other and unspecified hyperlipidemia; Translations: [Pure hypercholesterolemia ] Onset: 03-21-2013 Chronic Essential hypertension (20 sources) Benign essential hypertension; Translations: [Benign essential hypertension] Onset: 03-21-2013 10-25-2020 Chronic Heart valve disorders (1 source) Cardiac murmur, unspecified Episodic Osteoarthritis (10 sources) Unspecified osteoarthritis, unspecified site Onset: 09-10-2022 [...] coma Onset: 03-17-2014 Chronic Other gastrointestinal disorders (3 sources) Diarrhea, unspecified; Translations: [Diarrhea] Onset: 08-15-2023 07-28-2024 Episodic Other gastrointestinal disorders (3 sources) Diarrhea; Translations: [Diarrhea, unspecified] Onset: 08-15-2023 09-05-2023 Episodic Other nutritional; endocrine; and metabolic disorders (20 sources) Obesity, unspecified Onset: 12-16-2013 Chronic Other nutritional; endocrine; and metabolic disorders (1 source) Decrease in appetite; Translations: [Anorexia] 07-28-2024 Episodic Other nutritional; endocrine; and metabolic disorders (1 source) Anorexia; Translations: [Anorexia] 07-28-2024 Episodic Other screening for suspected conditions (not mental disorders or infectious disease) (1 source) Patient encounter status; Translations: [Encounter for screening for osteoporosis] 04-06-2024 Episodic Residual codes; unclassified (14 sources) Other specified health status Onset: 05-02-2022 Episodic Residual codes; unclassified (1 source) Postmenopausal state; Translations: [Asymptomatic menopausal state] 04-06-2024 Episodic Retinal detachments; defects; vascular occlusion; and retinopathy [...] Date Documented Date Episodic/Chronic Acquired foot deformities (17 sources) Bunion of right foot Onset: 09-05-2022 Episodic Acquired foot deformities (6 sources) Bunion of left foot Onset: 02-25-2023 [...] sources) Mood disorders Onset: 11-15-2022 11-15-2022 Mycoses (20 sources) Tinea unguium Onset: 09-26-2022 Episodic Open wounds of extremities (9 sources) Unspecified open wound of unspecified toe(s) with damage to nail, initial encounter Onset: 09-26-2022 Episodic Other connective tissue disease (20 sources) Cramp of limb Onset: 09-22-2014 Episodic Other connective tissue disease (20 sources) Pain in unspecified foot Onset: 04-14-2020 Episodic Other connective tissue disease (20 sources) Pain in right foot Onset: 04-14-2020 Episodic Other connective tissue disease (9 sources) Pain in left foot Onset: 09-26-2022 Episodic Other connective tissue disease (6 sources) Neuralgia and neuritis, unspecified Onset: 02-25-2023 Episodic Other skin disorders (8 sources) Unspecified disorder of skin and subcutaneous tissue Onset: 11-16-2016 Episodic Other skin disorders (8 sources) Actinic keratosis Onset: 11-16-2016 Episodic Other skin disorders (20 sources) Actinic keratosis Onset: 11-16-2016 Episodic Other skin disorders (20 sources) Disorder of the skin and subcutaneous tissue, unspecified Onset: 11-16-2016 Episodic Other skin disorders (10 sources) Ingrowing nail Onset: 09-10-2022 Episodic Other skin disorders (14 sources) Corns and callosities Onset: 11-26-2022 Episodic Skin and subcutaneous tissue infections (20 sources) Local infection of the skin and subcutaneous tissue, unspecified; Translations: [Cutaneous abscess of unspecified foot] Onset: 09-10-2022 Episodic Unclassified (1 source) ref_[id number]_[id number] ness_name_46 Onset: 08-05-2015 Unclassified (1 source) ref_[id number]_bcqaWkd ness_name_44 Onset: 08-05-2015 Unclassified (1 source) ref_[id number]_lbmdJkl ness_name_36 Onset: 01-20-2015 Unclassified (1 source) ref_[id number]_ccxbKfw ness_name_35 Onset: 01-20-2015 Unclassified (1 source) ref_[id number] [id number]_ygvqFvg ness_name_35 Onset: 01-20-2015 Unclassified (1 source) ref_[id number]_fbtqMzu ness_name_36 Onset: 01-20-2015 Unclassified (1 source) ref_[id number]_rryjIey ness_name_44 Onset: 08-05-2015 Unclassified (1 source) ref_[id number]_eyaxPeo ness_name_46 Onset: 08-05-2015 Unclassified (1 source) ref_[id number] [...] ness_name_46 Onset: 08-05-2015 Unclassified (1 source) ref_[id number]_gqitPhs ness_name_35 Onset: 01-20-2015 Unclassified (1 source) ref_[id number]_pakoUvt ness_name_36 Onset: 01-20-2015 Unclassified (1 source) ref_[id number]_ddtoTet ness_name_44 Onset: 08-05-2015 Unclassified (1 source) ref_[id number]_srshFxw ness_name_46 Onset: 08-05-2015 Unclassified (1 source) ref_[id number]_pastIll ness_name_35 Onset: 01-20-2015 Unclassified (1 source) ref_[id number]_pastIll ness_name_36 Onset: 01-20-2015 Unclassified (1 source) ref_[id number]_pastIll ness_name_44 Onset: 08-05-2015 Unclassified (1 source) ref_[id number]_pastIll ness_name_46 Onset: 08-05-2015 Unclassified (1 source) ref_[id number] [id number]_smwbGcu ness_name_35 Onset: 01-20-2015 Unclassified (1 source) ref_bcaebfa804fa4f65a7 [id number]_nnqrIjh ness_name_36 Onset: 01-20-2015 Unclassified (1 source) ref_bcaebfa804fa4f65a7 [id number]_copwKqi ness_name_44 Onset: 08-05-2015 Unclassified (1 source) ref_bcaebfa804fa4f65a7 [id number]_lrjfWtj ness_name_46 Onset: 08-05-2015 Unclassified (1 source) ref_[id number] [id number]_pastIll ness_name_35 Onset: 01-20-2015 Unclassified (1 source) ref_[id number] [id number]_pastIll ness_name_36 Onset: 01-20-2015 Unclassified (1 source) ref_[id number] bc9fbe50fa7d4e_pastIll ness_name_44 Onset: 08-05-2015 Unclassified (1 source) ref_[id number] [id number]_pastIll ness_name_46 Onset: 08-05-2015 Unclassified (1 source) ref_[id number]_xriwXrx ness_name_35 Onset: 01-20-2015 Unclassified (1 source) ref_[id number]_dyokGfc ness_name_36 Onset: 01-20-2015 Unclassified (1 source) ref_[id number]_fjtwVxj ness_name_44 Onset: 08-05-2015 Unclassified (1 source) ref_[id number]_bosnYgs ness_name_46 Onset: 08-05-2015 Unclassified (1 source) ref_[id number]_mfyaDfn ness_name_35 Onset: 01-20-2015 Unclassified (1 source) ref_[id number]_mufnUtl ness_name_36 Onset: 01-20-2015 Unclassified (1 source) ref_[id number]_drhoHnu ness_name_44 Onset: 08-05-2015 Unclassified (1 source) ref_[id number]_rbodNtj ness_name_46 Onset: 08-05-2015 Unclassified (1 source) ref_[id number] [...] ness_name_46 Onset: 08-05-2015 Unclassified (1 source) ref_[id number] [id number]_jgbkPmq ness_name_35 Onset: 01-20-2015 Unclassified (1 source) ref_[id number] [id number]_mbhyGaq ness_name_36 Onset: 01-20-2015 Unclassified (1 source) ref_[id number] [id number]_vlksTvp ness_name_44 Onset: 08-05-2015 Unclassified (1 source) ref_[id number] [id number]_fnwoRho ness_name_46 Onset: 08-05-2015 Unclassified (1 source) ref_[id number] [...] ness_name_44 Onset: 08-05-2015 Unclassified (1 source) ref_[id number] [id number]_pastIll ness_name_46 Onset: 08-05-2015 Unclassified (1 source) ref_[id number] [id number]_pastIll ness_name_35 Onset: 01-20-2015 Unclassified (1 source) ref_[id number] [id number]_pastIll ness_name_36 Onset: 01-20-2015 Unclassified (1 source) ref_[id number] [id number]_pastIll ness_name_44 Onset: 08-05-2015 Unclassified (1 source) ref_[id number] [id number]_pastIll ness_name_46 Onset: 08-05-2015 Unclassified (1 source) ref_[id number]_pastIll ness_name_35 Onset: 01-20-2015 Unclassified (1 source) ref_[id number]_pastIll ness_name_36 Onset: 01-20-2015 Unclassified (1 source) ref_[id number]_pastIll ness_name_44 Onset: 08-05-2015 Unclassified (1 source) ref_[id number]_pastIll ness_name_46 Onset: 08-05-2015 Results Test Name Value Interpretation Reference Range Facility No Panel Informationon 08-04 Tobacco smoking status Non-Smoker Invalid Interpretation Code [facility] [employer] Coding Summaryon 05-21-2024 Coding Summary HTMLBase 64 MrvdfflcOCi0sHe+PGhlY WQ+ZY8YVKOgA42quCWneP 2bT7FIZIfWPvawESZFBUa LBxOitrUjUI1opQCeXMNz IC8+LP0fCAXfGjstoQQcu 5W4eRA6I45hnl8gYUfwwE F2UIAxXcRdtrakv5kzoJn 6IDcuNmluOyBt CRWwsV27QLM6rH34Gp81w EOrzGBzj9vezJs2LgSjDM WeUPR1zYjxLOzkh2JeGID oT21xdQCvt2N1 KFLbdXvwuFXhBcQikAH2c R0vDCzcytoho5dpslrzRa g6rc50bIJhv9C3yKY2F5I huiU2ISEskSZv UjadhETDrD6zufact5wxe ubfVoMmNXBrRRa5VAc0PB FotYyxFmVrUJ91YWN2XCY mbyIfM0QiADLf aBdoGjJ0z9U6Ql2WG9WNM sazA6YYNEDATUdbrAN+PC 28lg77N8IzEvacJka2ETO nOVA6nKA8kY6m GIXvDAuec2W7dMF8Y8Wmz fQlmy1hg2veZFXyWHabQ7 6pkQMvk1L0MQDczNW3PQY axQjlHjQtoQ37 Oyc+MYWszOznj9XeYmild 9qxa0djeWm4EqhbVSHglz HgkIfgOYU1c9OdFl3aBTO bkHJ8tYR0hB4h CqHvMrK4ZTdaB632CbPpk RTkMlmkL51zB2PnsAC+PH NoYcz7BELdfTozEF3uZ8X hZGRpbmctbGVm iIkjFA7sXDXwxabySEKif E1pYBVqF8m0NuWhGaP3AM ahY9EePZNixhwzHg66nF1 pUoLnNxN6BGrm X6VaceZ1WJBgaQAbFTnlE WD4Y44ud8O4XSKfRODuCD J1bYS4yN6phOenkpeqfLI mdDsgdmVydGlj XPbnTCykI434IZFdpYrsQ kNvZGluZyBEYXRlOiAgMT EvMDcvMjAyNDwvdGQ+PHR kPVG2dIpvNVSo nAMxAQhlOi9urLqocPqzX R4mBDAybbsrOKDovH9pAK JhgRMjfJxeTZ0eQHRbled ga369PlRzVKE5 IPHwzGOoR0NgoV8fEjBwC ZFaLONpH9UpcYSpBQpaE2 77JRegPpO9LANohiTrS5B sLWFsaWduOiB0 o9J7Wu1Xk6HlrrzyK9Von UXkZjMdFuibYGx4H7SnSq wvdHI+QA66WLCbBQ45GNu 5IUH8qWntLSzz ENBzJ3EewN7fCnFiLZUoR GRkOyc+PHRhYmxlIHdpZH RoPScxMDAlJyBzdHlsZT0 hCp9gVTKyMLTb rYalfPInGqWsf4jgOFErA MinGI3fuKxmJ9QuuBB4DU Fpt9n4Jk71Z06vP6GmaMI +CDNvlIO1cVU2 hJ9cCvMkGiT7HNbyC950J pKwsYAbIazuq6yue3xabI m4WvB8AZChytPdqBfhGFN 1n5ZpLr35X01g IHdpZHRoPSIxNSUiIHZhb Jxyfx9gaH6uSq9+PGNvbC Y7dBS7nP6sKhNoXtC5IPl mK288TkUkmLJe Wddft2obx9ixlCp8JhCgP ELzmyXakCgcTXD1f1XvIj 31R3QtkRwyw6AiRij9km0 4dNRrl4X1qLG3 C8LtVUAsmebntFYtnKebV K9qZGPnweyuQQNvgC5jOA VlI3r4QwRzUxV1KCvyN4D vseE4BQLwpDNq PBPzgAUFkA0eidvux0ygr zymSwMcDWDpBIy2IWq1NH PszAzwRpExCAB7QeR9OGF 5uQVmpS6hxObb arkspA2rHxv+FHN7vZOfx VNKYQ0pCghbyGR+PHRkIH C3uFzxJNneYPFmfI5jYRD vW3h5PzMeTdX9 PLufP6LmtgI5BAVimAElB YUveAZWqP1dctbyh3xiuf ueOrHbIVSwIHb5KLq5LOZ saWduOiBsZWZ0 LoM9XME4gQTakI4zpZxmp cpqmD8wFbt+QmlydGggRG H8QTn4T0DuTvh8NVReoYr dME6gdJVcSWfj Wk5pnSqeyTilUT4dVLVcr asnr218DgUrp9gnZYYkrJ OrLNefAJF5X66el0I8LBN mFSUmPIF0qXO6 zK1btVskflpufIOkkYrho cIehCjzVGljTClcJ133HQ EpbJmgQnUvWTd1E3JxKmr 8ADJenZjiDB3u zIQuKJfyOo4wbMqrdFggH Y2yDFHwwfcif340YcKfx3 duPAXyjGXfFWnaVEZ3U66 ca9T2NTUaOIVa ZKH5qYQ7eA8stIwxseywq GVmdDsgdmVydGljYWwtYW ajZ957MCYhtDsxOuPlzFv 2A4AuJpq4UMIo kJtbTQ9nkYSpWKdqKz6dv DruoArgMV5eUOGdsmwxd6 04BqCva8qrPXOzeTLiARd ySIZ9T15mp2D8 GYFqPGOiCTF8sXY0kF4ny GlnbjogbGVmdDsgdmVydG zhGTwlOKqyD689HEChwIm nPlBhdGllbnQg IOuiCTq0O3BuZwkdwSE+P R70EYEvMD78eMCfqFDkq3 lxbGi4AvNdVQGhYHX9tZh cXFcxi5QqCPRz Q18oyJRzp9T4SXOepPsmy RTnGfDmdSA9qT0zDPskeo jkd3upjvyrVvxgh0ywcp4 6gK94U66lEUur ZHRoPSIzMCUiIHZhbGlnb k6twI3uWy7+MSXobFT6pZ V5pE6vUYWtIbN6TOzjB45 9InRvcCIvPjxj u1iny2pwjRy0WuB1WOLml dOswYolJCA8n3EfXb17G2 9sIHdpZHRoPSIyMCUiIHZ emTjhif6lrI7y Ii8+XHEubZX1yIU9yS5hM nZtDpM0SAyjR958XtSkhF GnJujlI82iR9EkfFQ+PHR aIxh7DLPpyKex OV4vlIDxSMbnJf3sESZ0U lOsPsNlAUjqB2KcVJOqox ifkfbswPB4NTTvSTRxcL3 8Dn8qzThoINLg zELJkC0kadtch7feqkayM eJpGDGlTDo1JFl4EEDyqJ ztAaOzEDP4QsB8FWK7jJN woA6umCcdoybm iK4xB3WfTGQvmhypNp00b A6qNtRoVzN2PHxwHls+R0 FZSEVBUlQsIExBVVJFTCB TXD42GE28rOTs v4F2mCU6F8ZiDVBnhxyny fuisHJ4LPIuMBGzlB62nU InUJcaWz3bm3O3s495QIG fXVKtnZ33Sd8l yNyfIKXksKELcX7rtaniz 5aljttpGtVrHBNvQRn0ST k9BHMwsXucMoTiZOS5OmP 9DCD5fEYaoZ7l dRobnywzeQ2tIti+MDQvM rJlJGv4EQfatPQ+PHRkIH M3xHitFGbgGJXyjS0zOHE iH8e9XoAiRiX6 SCoxY0WbMZAlzxbdYq09k B8vVnZgPqI6LEwuB7Mkal B0XAFssZZlEFkhCQE7K17 dy0P1WLAeAQRl WQP1wVS2nJ7bmBhjxgxpv GVmdDsgdmVydGljYWwtYW pvX444YJJgwHbnJed4OOv bWHTgNP17ER51 hPHsz2Y4zLM9T3WqHOKyi wbshdjntAQ0UABrMYItmG 04rARfJSmjOy3dd0A3x44 9ICZiCZApcQ34 Ug9rfKffHUOsfYDTrI5rh ilgx5rpohynHdZpAIEaWH g4SKo9HDKecLzwDcUeYSZ 2EyR4TNW5cZCa qK9zeSqdocdwnR6rVjv+R kMVUNfQBU29WZ05fSPrd0 O9nJG0C1SeYIJdacwiqxp nhCY2TCGzYLNo eJ49bOIlVMxcEn7ve6M8d 817XEKiFLBaxZ86Jc6mpB nzISYnwMCUsB9lxuvvj5y vcjogIzAwMDAw UXo5KOt7EEQkrJnsZfCvU JH9DeF1UUK9bWCijX7ecH hbfodokV1lSiu+KZ8vqci uouQ4EP29ES53 N9AmLonfxFFldRL+PHRhY mxlIHdpZHRoPScxMDAlJy YcjWreGH9qLm6aISHhNQC vbGxhcHNlOiBj r9eiLCKvPLusLE4vtUhcG 0KnaXX5CAVgz3k9Di04X1 5dK4UixTA+KYKhySN3vVX 3kH2uCdPrPbY7 AKzkF072BuQhfCOwAjgbx 4hgo7ksoRv7EyMpERXxvz RmwYgeCEB8g8VkNl98N55 sIHdpZHRoPSIy VQEfCGLbfVjtcp4okA6mI i8+GZWpmWC8bPY2nC7oZm ZvFgT3OEdfF882HeTqlRY wXlekU28jY6Op dXA+RJOnOhw1GPUanCddR Y2tfNYqKZubOd1bQFH5Qc FtDdZfBVleU1LvVOTzdde mpuonyGT0QHOi VFOigG27Ij0yrAvwWu8pZ EFaADO1RPGcxWBmD8LefK 9cElDdANQvVRQcA2AffQT kBWljK779RFks CcW9NBZsrsFaO0LdGNOrx EpiOsS3u1F4Sg4GqAarvN RyCP8cXsHnYKt3O3OxCwb 7LTPxlIuxIK9i pTIxDQobMg8byUullUknM M2vGCZydekgc041OhRib9 nmGUCyjITnLAcjZJW7B50 ky8N8FTGxGYSp VKM7eMX8dF3jwYaqqpjiz GVmdDsgdmVydGljYWwtYW auV477QXHvlNwuMkNBUer 4I3DlQio5RVMy pApdMC0btAMqZNckNm4gw CroxLnlOB8sIEFmxpobh7 71SlKqa2wiRFJzmPAePAk jOPR9J91qy8O4 XQOlZZVjPCC5vRY5mI9nm GlnbjogbGVmdDsgdmVydG geIUokSOlxL161QXHvzFm xQe8LPhr3U6Zx Vzm4ITFmhElcJC4swHUlA EpyJc1hyAauyDuaMX2cXD Dgfixfo944GpLus2ohHTA wcHQgVGltZXM7 S99ue9F9GAQlCGCoPJS7w YD0gP9fzUesfyhmfWKxaN aqstAizYshAQhxHNfiT56 6IHRvcDsnPlBh eWVyOjwvdGQ+FN31ny85I 4BjHbwzPap6BSXaEDN8tV G6vS6zZYIoATwco2Z4jQH 6Q0EteySauh2r b2x (more content not included)... Normal CT Head or Brain w/o Contras ton 05-08-2024 CT Head or Brain w/o Contrast Study: CT Head or Brain w/o Contrast, CT Maxillofacial w/o Contrast HISTORY: Fall, hit head Technique: CT images of the head and face were acquired without intravenous contrast. Dose reduction technique used: Automatic exposure control and/or adjustment of the mA and/or kV according to patient size and/or use of degenerative reconstruction technique. Comparisons: CT head without contrast dated 02/12/2014. Findings: No acute intracranial hemorrhage. No territorial loss of hardy-white matter differentiation. Mild parenchymal volume loss is associated with compensatory prominence of the ventricles. No mass effect or midline shift. Basal cisterns are patent. No extra-axial fluid collection. Right lateral periorbital soft tissue swelling. The postseptal fat within both orbits is maintained. No acute orbital abnormality. Status post bilateral lens surgery. No facial fracture is identified. The orbital nieto are intact. Normal appearance of the temporomandibular joints. Mild bilateral maxillary sinus mucosal thickening is nonobstructive. Patchy right posterior ethmoid air cell opacification. Mild leftward deviation of the nasal septum. Mastoid air cells are well aerated. No destructive calvarial lesion or calvarial fracture is identified. IMPRESSION: 1. No acute intracranial abnormality. 2. Right periorbital soft tissue swelling without adjacent facial fracture. Final Dictated by: Tavia Magallanes DO Dictated DT/TM: 05/08/24 9:02 Signed (Electronic Signature): Tavia Magallanes DO 05/08/24 9:16 pm Technologist: GIULIANA Guadalupe CT Maxillofacial w/o Contras ton 05-08-2024 CT Maxillofacial w/o Contrast Study: CT Head or Brain w/o Contrast, CT Maxillofacial w/o Contrast HISTORY: Fall, hit head Technique: CT images of the head and face were acquired without intravenous contrast. Dose reduction technique used: Automatic exposure control and/or adjustment of the mA and/or kV according to patient size and/or use of degenerative reconstruction technique. Comparisons: CT head without contrast dated 02/12/2014. Findings: No acute intracranial hemorrhage. No territorial loss of hardy-white matter differentiation. Mild parenchymal volume loss is associated with compensatory prominence of the ventricles. No mass effect or midline shift. Basal cisterns are patent. No extra-axial fluid collection. Right lateral periorbital soft tissue swelling. The postseptal fat within both orbits is maintained. No acute orbital abnormality. Status post bilateral lens surgery. No facial fracture is identified. The orbital nieto are intact. Normal appearance of the temporomandibular joints. Mild bilateral maxillary sinus mucosal thickening is nonobstructive. Patchy right posterior ethmoid air cell opacification. Mild leftward deviation of the nasal septum. Mastoid air cells are well aerated. No destructive calvarial lesion or calvarial fracture is identified. IMPRESSION: 1. No acute intracranial abnormality. 2. Right periorbital soft tissue swelling without adjacent facial fracture. Final Dictated by: Tavia Magallanes DO Dictated DT/TM: 05/08/24 9:02 Signed (Electronic Signature): Tavia Magallanes DO 05/08/24 9:16 pm Technologist: GIULIANA [facility] CT Spine Cervical w/o Michael white 05-08-2024 CT Spine Cervical w/o Contrast CT Spine Cervical w/o Contrast EXAM DATE: 05/08/2024 5:19 PM MDT COMPARISON: None available. INDICATION: Fall. TECHNIQUE: CT images of the cervical spine were acquired without intravenous contrast. Dose reduction technique used: Automatic exposure control and/or adjustment of the mA and/or kV according to patient size and/or use of degenerative reconstruction technique. FINDINGS: The bones are osteopenic. Normal cervical lordosis is maintained. Trace C5 on C6 retrolisthesis appears degenerative. The facet joints remain well aligned. No perched, locked, or dislocated facets. No prevertebral soft tissue swelling. No hyperattenuating material within the spinal canal to suggest acute blood products. The cervical vertebral body heights are maintained. No acute fracture is identified. Multilevel degenerative changes throughout the cervical spine include severe intervertebral disc height loss at C5-C6 and C6-C7 levels. Prominent degenerative changes are also noted at at T1-T2 with associated degenerative endplate changes. Uncovertebral hypertrophy and bilateral facet arthropathy contribute to multiple levels of neuroforaminal stenosis, up to severe grade bilaterally at C5-C6. Multiple levels of spinal canal narrowing is up to moderate grade at C5-C6-level due in part to disc osteophyte complex and ligamentum flavum thickening. No acute findings at the visualized lung apices. IMPRESSION: 1. No fracture or traumatic malalignment within the cervical spine. 2. Multilevel degenerative changes, most advanced at C5-C6. 3. Osteopenia. Final Dictated by: Tavia Magallanes DO Dictated DT/TM: 05/08/24 9:16 Signed (Electronic Signature): Tavia Magallanes DO 05/08/24 9:28 pm Technologist: GIULIANA [facility] [facility] ED Clinical Summary - Emergency Department [address] [place], [place] [address] ED Clinical Summary PERSON INFORMATION Name: MARIANA VIVEROS Age: 73 Years Sex: FEMALE : 1950 MRN: Acct#: Visit Reason: Fall; FALL HEAD LAC, RT SIDE PAIN Arrival: 05/08/2024 18:13:27 Discharge: 05/08/2024 23:00:00 LOS: 000 04:47 Check In: 05/08/2024 18:13:27 Checkout:05/08/2024 23:00:00 Address: [address] [place] [address] PCP: Gloria Mooney CNP PROVIDER INFORMATION Provider Role Assigned Unassigned Abeba MARLOW, Cat ED Nurse 05/08/2024 18:17:07 Meliton Allred ED PA 05/08/2024 18:22:59 Vivienne Rosenberg ASSEMBLER [employer]INGER [employer]S Nurse 05/08/2024 19:13:20 VITALS INFORMATION Vital Sign Triage Latest Temperature Tympanic Temperature Temporal Artery Pulse Rate 85 bpm 85 bpm O2 Sat 98 % 98 % Respiratory Rate 18 br/min 18 br/min Blood Pressure /87 mmHg /87 mmHg MEDICAL INFORMATION Medications Given: Medication Dose Route lidocaine (Lidocaine 1% injectable solution) 1 mL Intradermal acetaminophen (Tylenol) 500 mg Oral lidocaine topical (Lidocaine 4% Patch) 4 % Topical Allergy Information: Adhesive Bandage PHYSICIAN DOCUMENTATION Addendum by Paulette Solis MD on May 08, 2024 21:40:24 EDT DISCHARGE INFORMATION: Discharge Disposition: Home Discharge Location: Home PATIENT EDUCATION INFORMATION Instructions: Facial Laceration; Head Injury, Adult; Concussion, Adult Follow-Up: With: Address: When: Provider, [place] [address] Within 3 to 5 days With: Address: When: Return to Emergency Department Within As needed DIAGNOSIS: 1:Head injury; 2:Fracture of rib Patient Understands: Yes - Patient/family/caregi jonatan verbalizes understanding of instructions given Comment: [facility] ED Note-Nursingon 05-08-2024 ED Note-Nursing Patient arrives with c/o right sided rib pain after tripping and falling in a resturant parking lot. Small abrasion to right eyebrow, bleeding controlled. No LOC. Alert and oriented X4. [facility] ED Patient Summaryon 024 ED Patient Summary - Emergency Department [address] [place] [id number] PATIENT DISCHARGE INSTRUCTIONS Patient Information Name: MARIANA VIVEROS Age: 73 Years Date of : 1950 Reason For Visit: Fall; FALL HEAD LAC, RT SIDE PAIN Arrival Time: 05/08/2024 18:13:27 Primary Care Physician: Gloria Mooney CNP Attending Physician: Josue Santana MD Comment: Visit Diagnosis: Diagnoses This Visit Fall ([id number]) Fracture of rib (S22.39XA) Head injury (S09.90XA) The Pharmacy at [facility] is open Saturday through Saturday from 9A to 6P and Saturday and Saturday from 9A to 5P Prescription Information: If you have been given a prescription for narcotics, seek immediate medical attention if you have any difficulty breathing or any sudden status changes such as confusion and sleepiness. If you or anyone you know is experiencing suicidal thoughts, mental health, alcohol and/or drug addiction problems; contact the [facility] 04/02 Crisis Hotline -Text 6AAEJ er [phone]. If you received any narcotics, sedation, or any other medication that causes drowsiness for the next 24 hours, unless otherwise directed: ? Do not drive a car. ? Do not operate machinery such as power tools, lawn mowers, drills, sewing machines, or stoves ? Avoid alcoholic beverages and drugs for allergies, nerves, or sleep ? Do not make important personal or business decisions or sign any legal documents With: Address: When: Provider, None [address] [place] [id number] Within 3 to 5 days With: Address: When: Return to Emergency Department Within As needed Medication Information: The exam and treatment you received today in the [facility] Emergency Department were for an urgent problem and are not intended as complete care. It is important for you to follow up with a doctor, nurse practitioner, or physician?s admissions assistant for ongoing care. If your symptoms become worse or you do not improve as expected and you are unable to reach your usual health care provider, you should return to the Emergency Department, we are available 24 hours a day. For those patients who have received Radiology results, the interpretation of your X-ray as given to you by our Emergency Department physician is only a preliminary report. The Radiologist will review your films and if there is a change in the diagnosis you will be notified by phone. Please make sure you have provided a working phone number so we can reach you if necessary. In the event that you had a lab culture while you were a patient in the Emergency Department, you will be notified by phone if there is a need to change your antibiotic. Please make sure you have provided a working phone number so we can reach you if necessary. Emergency Department has provided you with a complete list of medications post discharge. Please inform your ultrasound applications specialist/provider of your visit and for further instruction on these medications. Any specific questions regarding your chronic medications and dosages should be discussed with your primary care physician(s) and/or pharmacist. Additional medications on your home medication list not specifically addressed. Please contact the ordering physician if you have questions about these medications. levothyroxine (levothyroxine 100 mcg (0.1 mg) oral tablet) meloxicam (meloxicam 15 mg oral tablet) perfluorohexyloctane ophthalmic (Miebo ophthalmic solution) Visit Information Allergies: Substance Reaction Symptoms Type Comments Adhesive Bandage Other Vital Signs: Vitals and Measurements this Visit (last charted value for your 05/08/2024 visit) Vital Signs This Visit Temperature Oral: 36.4 DegC Peripheral Pulse Rate: 85 bpm Respiratory Rate: 18 br/min Systolic Blood Pressure: 160 mmHg Diastolic Blood Pressure: 82 mmHg SpO2: 98 % Oxygen Therapy: Room air Measurements This Visit Height/Length Measured: 180 cm Weight Measured: 69.40 kg Weight Dosin.400 kg Body Mass Index: 21.42 kg/m2 Problems List: Problem Onset Comments No Problems found Patient Education Facial Laceration A facial laceration is a cut (laceration) on the face. It is caused by any injury that cuts or tears the skin or tissues on the face. Facial lacerations can bleed and be painful. You may need medical attention to stop the bleeding, help the wound heal, lower your risk of infection, and prevent scarring. Lacerations usually heal quickly after treatment. What are the causes? This condition may be caused by: ? A motor vehicle crash. ? A sports injury. ? A violent attack. ? A fall. What are the signs or symptoms? Common symptoms of this condition include: ? An obvious cut on the face. ? Bleeding. ? Pain. ? Swelling. ? Bruising. ? A change in the appearance of the face. How is this diagnosed (more content not included)... [facility] XR Ribs w/ PA Chest Righton 05-08-2024 XR Ribs w/ PA Chest Right X-RAY RIB SERIES. HISTORY: Fall. COMPARISON: 02/03/2015 TECHNIQUE: 4 views of the right rib cage. FINDINGS: There is a questionable nondisplaced fracture of the right anterior ninth rib. No pneumothorax. The lungs are clear. IMPRESSION: Questionable nondisplaced fracture of the right anterior ninth rib. Correlate clinically. No pneumothorax. Final Dictated by: Rolan Alegria MD Dictated DT/TM: 05/08/24 10:07 Signed (Electronic Signature): Rolan Alegria MD 05/08/24 10:10 p Technologist: JESSICA [facility] No Panel Informationon 05-04 Tobacco smoking status Non-Smoker Invalid Interpretation Code [employer] Colonoscopyon 09-04-2023 [facility] 09-04-2023 L Specimen: [id number] Received: 09/04/23 Status: DAKOTAH Matute Num: [id number] Spec Type: Surgical Subm Dr: Paulette Voss DO Tissues: A Colon Biopsy (RANDOM COLON BX) Procedures: HE/2, Gross/Micro L4 Age/ Patient Sex Location Account Attending Physician Mariana Viveros 72/F [facility] [id number] Paulette Voss DO SPEC NUM: [id number] RECD: 09/04/23 STATUS: DAKOTAH MATUTE NUM: [id number] KRYSTAL: 09/04/[address]: Paulette Voss DO ENTERED: 09/04/[address]: Jose Farmer SPEC TYPE: Surgical DEPT: DANIEL GATES ORDERED: HE/2, Gross/Micro L4 ORDERED: 2, Gross/Micro L4 Pathological Diagnosis Colon, Biopsy: No Evidence Of Colitis. Clinical Information Normal colon Gross Description Received in formalin labeled with the patient's name, date of and random colon biopsies are 4 rivas soft tissue fragments, 0.4-0.6 cm in greatest dimensions. Entirely submitted in one cassette labeled A1. CPT Codes 64776 -------- -------- Specimen: [id number] Received: 09/04/23 Status: DAKOTAH Matute Num: [id number] Spec Type: Surgical Subm Dr: Paulette Voss DO Tissues: A Colon Biopsy (RANDOM COLON BX) Procedures: , Gross/Micro L4 -------- Patient: WmMariana [id number] (Continued) -------- Signed (signature on file) Elias Diaz MD 09/08/23 2217 Normal [facility] C DIFFICILE BY PCRon 024 C. difficile toxin genes WENDY+probe Ql (Stl) TOXIGENIC C DIFF Negative (qualifier value) 027 NAP1 Negative (qualifier value) Normal PRNEG [facility] Comment on above: Performed By: #### 8 2195-9 #### [facility] ([id number]) [address] [place] [address], [place] [address] [facility] ([id number]) [address] [facility], [address] [address] #### [id number] #### [facility] ([id number]) [address] [place] [address], [address] [address] GI PANELon 08-16-2023 Gastrointestinal pathogens DNA and [...] SAPOVIRUS Not detected (qualifier value) Normal NDET [facility] Comment on above: Performed By: #### 8 2195-9 #### [facility] ([id number]) [address] [place] [address], [place] [address] [facility] ([id number]) [address] [place] [address] #### [id number] #### [facility] ([id number]) [address] [facility], [address] [place] [address] Laboratory - Chemistry and C hemistry - challengeon 08-02-2023 Albumin (U) [Mass/Vol] < 12.00 Invalid Interpretation Code < 17.0 ug/mL [employer] Anion gap [Moles/Vol] 12 mmol/L Invalid Interpretation Code 10-20 [employer] Calcium [Mass/Vol] 9.40 mg/dL Invalid Interpretation Code 8.5-10.8 [employer] Chloride [Moles/Vol] 102.0 mmol/L Invalid Interpretation Code 100-112 [employer] CO2 [Moles/Vol] 31.0 mmol/L Invalid Interpretation Code 23-30 [employer] Creatinine (U) [Mass/Vol] 119.0 mg/dL Invalid Interpretation Code Not Estab. mg/dL [employer] Creatinine [Mass/Vol] 0.80 mg/dL Invalid Interpretation Code 0.5-1.5 [employer] Glucose [Mass/Vol] 131.0 mg/dL Invalid Interpretation Code 80-117 [employer] Potassium [Moles/Vol] 4.40 mmol/L Invalid Interpretation Code 3.5-5.3 [employer] Sodium [Moles/Vol] 141.0 mmol/L Invalid Interpretation Code 135-148 [employer] Urea nitrogen [Mass/Vol] 19.0 mg/dL Invalid Interpretation Code 7-25 [employer] Urea nitrogen/Creatinine [Mass ratio] 24 mg/mg Invalid Interpretation Code 6-20 [facility] Laboratory - Hematology and Cell countson 08-02-2023 HbA1c (Bld) [Mass fraction] 6.20 % Invalid Interpretation Code 4.3-6.3 [facility] Laboratory - Urinalysison Glucose Test strip (U) [Mass/Vol] Negative Invalid Interpretation Code negative [employer] Protein (U) [Mass/Vol] Negative Invalid Interpretation Code negative [employer] No Panel Informationon 08-02 131 Invalid Interpretation Code 70-117 [employer] 131.0 mg/dL Invalid Interpretation Code [employer] 77 Invalid Interpretation Code [employer] Laboratory - Chemistry and C hemistry - challengeon 05-02-2023 Albumin (U) [Mass/Vol] < 12.00 Invalid Interpretation Code < 17.0 ug/mL [employer] Anion gap [Moles/Vol] 11 mmol/L Invalid Interpretation Code 10-20 [employer] Calcium [Mass/Vol] 9.20 mg/dL Invalid Interpretation Code 8.5-10.8 [employer] Chloride [Moles/Vol] 105.0 mmol/L Invalid Interpretation Code 100-112 [employer] Cholesterol [Mass/Vol] 259.0 mg/dL Invalid Interpretation Code 0-200 [employer] Cholesterol in HDL [Mass/Vol] 88.0 mg/dL Invalid Interpretation Code 50-100 [employer] Cholesterol in LDL [Mass/Vol] 151.0 mg/dL Invalid Interpretation Code 0-130 [employer] Cholesterol in VLDL [Mass/Vol] 20.0 mg/dL Invalid Interpretation Code 0-39 [employer] Cholesterol.total/Ch olesterol in HDL [Mass ratio] 3 {ratio} Invalid Interpretation Code [employer] CO2 [Moles/Vol] 31.0 mmol/L Invalid Interpretation Code 23-30 [employer] Creatinine (U) [Mass/Vol] 125.0 mg/dL Invalid Interpretation Code Not Estab. mg/dL [employer] Creatinine [Mass/Vol] 0.80 mg/dL Invalid Interpretation Code 0.5-1.5 [employer] Glucose [Mass/Vol] 111.0 mg/dL Invalid Interpretation Code 80-117 [employer] Potassium [Moles/Vol] 4.60 mmol/L Invalid Interpretation Code 3.5-5.3 [employer] Sodium [Moles/Vol] 142.0 mmol/L Invalid Interpretation Code 135-148 [employer] Triglyceride [Mass/Vol] 101.0 mg/dL Invalid Interpretation Code 30-150 [employer] Urea nitrogen [Mass/Vol] 17.0 mg/dL Invalid Interpretation Code 7-25 [employer] Urea nitrogen/Creatinine [Mass ratio] 21 mg/mg Invalid Interpretation Code 6-20 [employer] Laboratory - Hematology and Cell countson 05-02-2023 HbA1c (Bld) [Mass fraction] 6.0 % Invalid Interpretation Code 4.3-6.3 [employer] Laboratory - Urinalysison Glucose Test strip (U) [Mass/Vol] Negative Invalid Interpretation Code negative [employer] Protein (U) [Mass/Vol] Negative Invalid Interpretation Code negative [employer] No Panel Informationon 05-02 126.0 mg/dL Invalid Interpretation Code [employer] 77 Invalid Interpretation Code [employer] 115 Invalid Interpretation Code 70-117 [employer] Laboratory - Chemistry and C hemistry - challengeon 01-30-2023 Albumin (U) [Mass/Vol] 25.5 Invalid Interpretation Code <17.0 [employer] Albumin/Creatinine DL <= 20 mg/L (U) [Mass ratio] 10.9 mg/g Invalid Interpretation Code 0.0-30.0 [employer] Anion gap [Moles/Vol] 13 mmol/L Invalid Interpretation Code 10-20 [employer] Calcium [Mass/Vol] 9.10 mg/dL Invalid Interpretation Code 8.5-10.8 [employer] Chloride [Moles/Vol] 103.0 mmol/L Invalid Interpretation Code 100-112 [employer] CO2 [Moles/Vol] 28.0 mmol/L Invalid Interpretation Code 23-30 [employer] Creatinine (U) [Mass/Vol] 234.40 mg/dL Invalid Interpretation Code Not Estab. mg/dL [employer] Creatinine [Mass/Vol] 0.80 mg/dL Invalid Interpretation Code 0.5-1.5 [employer] Glucose [Mass/Vol] 176.0 mg/dL Invalid Interpretation Code 80-117 [facility] Potassium [Moles/Vol] 4.50 mmol/L Invalid Interpretation Code 3.5-5.3 [facility] Sodium [Moles/Vol] 139.0 mmol/L Invalid Interpretation Code 135-148 [facility] Urea nitrogen [Mass/Vol] 21.0 mg/dL Invalid Interpretation Code 7-25 [employer] Urea nitrogen/Creatinine [Mass ratio] 26 mg/mg Invalid Interpretation Code 6-20 [facility] Laboratory - Hematology and Cell countson 01-30-2023 HbA1c (Bld) [Mass fraction] 6.20 % Invalid Interpretation Code 4.3-6.3 [facility] Laboratory - Urinalysison Glucose Test strip (U) [Mass/Vol] Negative Invalid Interpretation Code negative [facility] Protein (U) [Mass/Vol] trace Invalid Interpretation Code negative [facility] No Panel Informationon 01-30 131.0 mg/dL Invalid Interpretation Code [facility] 77 Invalid Interpretation Code [facility] 173 Invalid Interpretation Code 70-117 [facility] No Panel Informationon 01-29 Tobacco smoking status Non-Smoker Invalid Interpretation Code [facility] POINT OF CARE GLUCOSEon 050 Glucose [Mass/Vol] 189 mg/dL Critically high 74-106 [facility] Comment on above: Performed By: #### P OCGLUC #### [facility] [address] [place], [place] [address] Dr. Jenni Watson Laboratory - Chemistry and C hemistry - challengeon 10-31-2022 Anion gap [Moles/Vol] 12 mmol/L Invalid Interpretation Code 10-20 [employer] Calcium [Mass/Vol] 9.20 mg/dL Invalid Interpretation Code 8.5-10.8 [employer] Chloride [Moles/Vol] 103.0 mmol/L Invalid Interpretation Code 100-112 [employer] Cholesterol [Mass/Vol] 244.0 mg/dL Invalid Interpretation Code 0-200 [employer] Cholesterol in HDL [Mass/Vol] 85.0 mg/dL Invalid Interpretation Code 50-100 [employer] Cholesterol in LDL [Mass/Vol] 139.0 mg/dL Invalid Interpretation Code 0-130 [employer] Cholesterol in VLDL [Mass/Vol] 20.0 mg/dL Invalid Interpretation Code 0-39 [employer] Cholesterol.total/Ch olesterol in HDL [Mass ratio] 3 {ratio} Invalid Interpretation Code [employer] CO2 [Moles/Vol] 29.0 mmol/L Invalid Interpretation Code 23-30 [employer] Creatinine [Mass/Vol] 0.80 mg/dL Invalid Interpretation Code 0.5-1.5 [employer] Glucose [Mass/Vol] 187.0 mg/dL Invalid Interpretation Code 80-117 [employer] Potassium [Moles/Vol] 4.0 mmol/L Invalid Interpretation Code 3.5-5.3 [employer] Sodium [Moles/Vol] 140.0 mmol/L Invalid Interpretation Code 135-148 [employer] T4 [Mass/Vol] 9.84 ug/dL Invalid Interpretation Code 5.00-12.00 [employer] Triglyceride [Mass/Vol] 99.0 mg/dL Invalid Interpretation Code 30-150 [facility] TSH Qn 0.25 m[IU]/L Invalid Interpretation Code 0.50-4.00 [employer] Urea nitrogen [Mass/Vol] 16.0 mg/dL Invalid Interpretation Code 7-25 [employer] Urea nitrogen/Creatinine [Mass ratio] 20 mg/mg Invalid Interpretation Code 6-20 [facility] Laboratory - Hematology and Cell countson 10-31-2022 HbA1c (Bld) [Mass fraction] 6.20 % Invalid Interpretation Code 4.3-6.3 [facility] Laboratory - Urinalysison Glucose Test strip (U) [Mass/Vol] Negative Invalid Interpretation Code negative [facility] Protein (U) [Mass/Vol] trace Invalid Interpretation Code negative [employer] No Panel Informationon 10-31 Body mass index (BMI) [Percentile] Per age and sex 0.1 {percentile} Invalid Interpretation Code [facility] [id number] Per age and sex 0.1 {percentile} Invalid Interpretation Code [employer] 131.0 mg/dL Invalid Interpretation Code [employer] 77 Invalid Interpretation Code [employer] 188 Invalid Interpretation Code 70-117 [facility] Laboratory - Chemistry and C hemistry - challengeon 08-02-2022 Albumin (U) [Mass/Vol] < 12.00 Invalid Interpretation Code < 17.0 ug/mL [employer] ALT [Catalytic activity/Vol] 22.0 U/L Invalid Interpretation Code 0-50 [employer] Anion gap [Moles/Vol] 12 mmol/L Invalid Interpretation Code 10-20 [employer] Calcium [Mass/Vol] 9.20 mg/dL Invalid Interpretation Code 8.5-10.8 [employer] Chloride [Moles/Vol] 105.0 mmol/L Invalid Interpretation Code 100-112 [employer] Cholesterol [Mass/Vol] 272.0 mg/dL Invalid Interpretation Code 0-200 [employer] Cholesterol in HDL [Mass/Vol] 90.0 mg/dL Invalid Interpretation Code 50-100 [employer] Cholesterol in LDL [Mass/Vol] 166.0 mg/dL Invalid Interpretation Code 0-130 [employer] Cholesterol in VLDL [Mass/Vol] 16.0 mg/dL Invalid Interpretation Code 0-39 [employer] Cholesterol.total/Ch olesterol in HDL [Mass ratio] 3 {ratio} Invalid Interpretation Code [employer] CO2 [Moles/Vol] 30.0 mmol/L Invalid Interpretation Code 23-30 [employer] Creatinine (U) [Mass/Vol] 120.40 mg/dL Invalid Interpretation Code Not Estab. mg/dL [employer] Creatinine [Mass/Vol] 0.70 mg/dL Invalid Interpretation Code 0.5-1.5 [employer] GFR/1.73 sq M.predicted among non-blacks MDRD (S/P/Bld) [Vol rate/Area] 82 mL/min/{1.73_m2} Invalid Interpretation Code [employer] Glucose [Mass/Vol] 146.0 mg/dL Invalid Interpretation Code 80-117 [employer] Potassium [Moles/Vol] 4.80 mmol/L Invalid Interpretation Code 3.5-5.3 [employer] Sodium [Moles/Vol] 142.0 mmol/L Invalid Interpretation Code 135-148 [employer] Triglyceride [Mass/Vol] 80.0 mg/dL Invalid Interpretation Code 30-150 [employer] Urea nitrogen [Mass/Vol] 17.0 mg/dL Invalid Interpretation Code 7-25 [employer] Urea nitrogen/Creatinine [Mass ratio] 24 mg/mg Invalid Interpretation Code 6-20 [employer] Laboratory - Hematology and Cell countson 08-02-2022 HbA1c (Bld) [Mass fraction] 6.0 % Invalid Interpretation Code 4.3-6.3 [employer] No Panel Informationon 08-02 Body mass index (BMI) [Percentile] Per age and sex 0.1 {percentile} Invalid Interpretation Code [employer] [id number]-[id number] Per age and sex 0.1 {percentile} Invalid Interpretation Code [employer] 126.0 mg/dL Invalid Interpretation Code [employer] 158 Invalid Interpretation Code 70-117 [employer] CALCIUM, IONIC (POC)on 07-10 POC Ionized Calcium 1.18 mmol/L 1.15 - 1 .33 mmol/L [facility] Creatinine W/GFR Point of Ca reon 07-10-2022 Creatinine [Mass/Vol] 0.55 mg/dL 0.51 - 1.19 mg/dL [facility] eGFR, POC mL/min/1.73m2 [facility] Comment on above: Effective Apr 16, 2022 [...] [Moles/Vol] 12 mmol/L 7 - 16 mmol/L [facility] Chloride [Moles/Vol] 104 mmol/L 98 - 10 7 mmol/L [facility] [employer] CO2 [Moles/Vol] 26 mmol/L 22 - 30 mmol/L [facility] Potassium [Moles/Vol] 4.2 mmol/L 3.5 - 4.5 mmol/L [facility] Sodium [Moles/Vol] 141 mmol/L 138 - 146 mmol/L [facility] Hemoglobin and hematocrit, b loodon 07-10-2022 Hematocrit (Bld) [Volume fraction] 39 % 36 - 46 % [facility] Hemoglobin (Bld) [Mass/Vol] 13.3 g/dL 12.0 - 16.0 g/dL [facility] No Panel Informationon 07-10 [facility] [employer] POCT Glucoseon 07-10-2022 Glucose [Mass/Vol] 141 mg/dL High 74 - 100 mg/dL [facility] Interpretation and review of laboratory results Abnormal [facility] POCT urea (BUN)on 07-10-2022 Urea nitrogen [Mass/Vol] 16 mg/dL 8 - 26 mg/dL [facility] Laboratory - Chemistry and C hemistry - challengeon 05-02-2022 Albumin (U) [Mass/Vol] 18.9 Invalid Interpretation Code <17.0 [employer] Albumin/Creatinine DL <= 20 mg/L (U) [Mass ratio] 11.5 mg/g Invalid Interpretation Code 0.0-30.0 [employer] Anion gap [Moles/Vol] 13 mmol/L Invalid Interpretation Code 10-20 [employer] Calcium [Mass/Vol] 9.30 mg/dL Invalid Interpretation Code 8.5-10.8 [employer] Chloride [Moles/Vol] 103.0 mmol/L Invalid Interpretation Code 100-112 [employer] Cholesterol [Mass/Vol] 250.0 mg/dL Invalid Interpretation Code 0-200 [employer] Cholesterol in HDL [Mass/Vol] 94.0 mg/dL Invalid Interpretation Code 50-100 [employer] Cholesterol in LDL [Mass/Vol] 144.0 mg/dL Invalid Interpretation Code 0-130 [employer] Cholesterol in VLDL [Mass/Vol] 12.0 mg/dL Invalid Interpretation Code 0-39 [employer] Cholesterol.total/Ch olesterol in HDL [Mass ratio] 3 {ratio} Invalid Interpretation Code [employer] CO2 [Moles/Vol] 28.0 mmol/L Invalid Interpretation Code 23-30 [employer] Creatinine (U) [Mass/Vol] 163.90 mg/dL Invalid Interpretation Code Not Estab. mg/dL [employer] Creatinine [Mass/Vol] 0.80 mg/dL Invalid Interpretation Code 0.5-1.5 [employer] GFR/1.73 sq M.predicted among non-blacks MDRD (S/P/Bld) [Vol rate/Area] 70 mL/min/{1.73_m2} Invalid Interpretation Code [employer] Glucose [Mass/Vol] 142.0 mg/dL Invalid Interpretation Code 80-117 [facility] Potassium [Moles/Vol] 4.40 mmol/L Invalid Interpretation Code 3.5-5.3 [facility] Sodium [Moles/Vol] 140.0 mmol/L Invalid Interpretation Code 135-148 [facility] Triglyceride [Mass/Vol] 61.0 mg/dL Invalid Interpretation Code 30-150 [facility] Urea nitrogen [Mass/Vol] 21.0 mg/dL Invalid Interpretation Code 7-25 [facility] Urea nitrogen/Creatinine [Mass ratio] 26 mg/mg Invalid Interpretation Code 6-20 [facility] - Hematology and Cell countson 05-02-2022 HbA1c (Bld) [Mass fraction] 5.70 % Invalid Interpretation Code 4.3-6.3 [facility] - Urinalysison Glucose Test strip (U) [Mass/Vol] Negative Invalid Interpretation Code negative [facility] Protein (U) [Mass/Vol] trace Invalid Interpretation Code negative [facility] No Panel Informationon 05-02 117.0 mg/dL Invalid Interpretation Code [facility] 143 Invalid Interpretation Code 70-117 [facility] - Chemistry and C hemistry - challengeon 01-30-2022 Anion gap [Moles/Vol] 10 mmol/L Invalid Interpretation Code 1020 [facility] Calcium [Mass/Vol] 9.20 mg/dL Invalid Interpretation Code 8.5-10.8 [employer] Chloride [Moles/Vol] 105.0 mmol/L Invalid Interpretation Code 100-112 [employer] Cholesterol [Mass/Vol] 266.0 mg/dL Invalid Interpretation Code 0-200 [employer] Cholesterol in HDL [Mass/Vol] 86.0 mg/dL Invalid Interpretation Code 50-100 [employer] Cholesterol in LDL [Mass/Vol] 157.0 mg/dL Invalid Interpretation Code 0-130 [employer] Cholesterol in VLDL [Mass/Vol] 23.0 mg/dL Invalid Interpretation Code 0-39 [employer] Cholesterol.total/Ch olesterol in HDL [Mass ratio] 3 {ratio} Invalid Interpretation Code [employer] CO2 [Moles/Vol] 29.0 mmol/L Invalid Interpretation Code 23-30 [employer] Creatinine [Mass/Vol] 0.80 mg/dL Invalid Interpretation Code 0.5-1.5 [employer] GFR/1.73 sq M.predicted among non-blacks MDRD (S/P/Bld) [Vol rate/Area] 70 mL/min/{1.73_m2} Invalid Interpretation Code [employer] Glucose [Mass/Vol] 154.0 mg/dL Invalid Interpretation Code 80-117 [employer] Potassium [Moles/Vol] 4.40 mmol/L Invalid Interpretation Code 3.5-5.3 [employer] Sodium [Moles/Vol] 140.0 mmol/L Invalid Interpretation Code 135-148 [employer] Triglyceride [Mass/Vol] 113.0 mg/dL Invalid Interpretation Code 30-150 [employer] Urea nitrogen [Mass/Vol] 18.0 mg/dL Invalid Interpretation Code 7-25 [facility] Urea nitrogen/Creatinine [Mass ratio] 23 mg/mg Invalid Interpretation Code 6-20 [facility] - Hematology and Cell countson 01-30-2022 HbA1c (Bld) [Mass fraction] 5.40 % Invalid Interpretation Code 4.3-6.3 [facility] No Panel Informationon 01-30 108.0 mg/dL Invalid Interpretation Code [facility] 174 Invalid Interpretation Code 70-117 [facility] - Chemistry and C hemistry - challengeon 10-31-2021 Albumin (U) [Mass/Vol] 22.0 Invalid Interpretation Code <17.0 [facility] Albumin/Creatinine DL <= 20 mg/L (U) [Mass ratio] 9.8 mg/g Invalid Interpretation Code 0.0-30.0 [facility] Anion gap [Moles/Vol] 14 mmol/L Invalid Interpretation Code 10-20 [facility] Bilirubin Ql (U) Negative Invalid Interpretation Code Negative [facility] Calcium [Mass/Vol] 9.30 mg/dL Invalid Interpretation Code 8.5-10.8 [facility] Chloride [Moles/Vol] 103.0 mmol/L Invalid Interpretation Code 100-112 [facility] CO2 [Moles/Vol] 28.0 mmol/L Invalid Interpretation Code 23-30 [facility] Creatinine (U) [Mass/Vol] 224.0 mg/dL Invalid Interpretation Code Not Estab. mg/dL [employer] Creatinine [Mass/Vol] 0.80 mg/dL Invalid Interpretation Code 0.5-1.5 [facility] GFR/1.73 sq M.predicted among non-blacks MDRD (S/P/Bld) [Vol rate/Area] 70 mL/min/{1.73_m2} Invalid Interpretation Code [facility] Glucose [Mass/Vol] 159.0 mg/dL Invalid Interpretation Code 80-117 [facility] Ketones Ql (U) 1+ Invalid Interpretation Code Negative [facility] pH (U) 6 [pH] Invalid Interpretation Code 5.0-9.0 [facility] Potassium [Moles/Vol] 4.40 mmol/L Invalid Interpretation Code 3.5-5.3 [facility] Sodium [Moles/Vol] 141.0 mmol/L Invalid Interpretation Code 135-148 [facility] Specific gravity (U) [Rel density] 1.020 Invalid Interpretation Code 1.003-1.030 [facility] T4 [Mass/Vol] 7.37 ug/dL Invalid Interpretation Code 5.00-12.00 [facility] TSH Qn 0.92 m[IU]/L Invalid Interpretation Code 0.50-4.00 [facility] Urea nitrogen [Mass/Vol] 19.0 mg/dL Invalid Interpretation Code 7-25 [employer] Urea nitrogen/Creatinine [Mass ratio] 24 mg/mg Invalid Interpretation Code 6-20 [facility] Urobilinogen (U) [Mass/Vol] normal Invalid Interpretation Code normal [facility] - Hematology and Cell countson 10-31-2021 HbA1c (Bld) [Mass fraction] 5.90 % Invalid Interpretation Code 4.3-6.3 [employer] Hemoglobin Ql (U) Trace Invalid Interpretation Code Negative [employer] [facility] - Specimen inform ationon 10-31-2021 Clarity (U) Sl. Cloudy Invalid Interpretation Code Clear [employer] Color (U) rafael Invalid Interpretation Code yellow [employer] [facility] - Urinalysison Glucose Test strip (U) [Mass/Vol] Negative Invalid Interpretation Code Negative [employer] Leukocyte esterase Test strip Ql (U) Trace Invalid Interpretation Code Negative [employer] Nitrite Ql (U) Negative Invalid Interpretation Code Negative [employer] Protein Ql (U) 2+ Invalid Interpretation Code Negative [employer] No Panel Informationon 10-31 123.0 mg/dL Invalid Interpretation Code [employer] 175 Invalid Interpretation Code 70-117 [employer] [facility] - Chemistry and C hemistry - challengeon 08-02-2021 Albumin (U) [Mass/Vol] < 12.00 Invalid Interpretation Code < 17.0 ug/mL [employer] Anion gap [Moles/Vol] 11 mmol/L Invalid Interpretation Code 10-20 [employer] Bilirubin Ql (U) Negative Invalid Interpretation Code Negative [employer] Calcium [Mass/Vol] 9.20 mg/dL Invalid Interpretation Code 8.5-10.8 [employer] Chloride [Moles/Vol] 104.0 mmol/L Invalid Interpretation Code 100-112 [employer] Cholesterol [Mass/Vol] 274.0 mg/dL Invalid Interpretation Code 0-200 [employer] Cholesterol in HDL [Mass/Vol] 88.0 mg/dL Invalid Interpretation Code 50-100 [employer] Cholesterol in LDL [Mass/Vol] 165.0 mg/dL Invalid Interpretation Code 0-130 [employer] Cholesterol in VLDL [Mass/Vol] 21.0 mg/dL Invalid Interpretation Code 0-39 [employer] Cholesterol.total/Ch olesterol in HDL [Mass ratio] 3 {ratio} Invalid Interpretation Code [employer] CO2 [Moles/Vol] 30.0 mmol/L Invalid Interpretation Code 23-30 [employer] Creatinine (U) [Mass/Vol] 159.70 mg/dL Invalid Interpretation Code Not Estab. mg/dL [employer] Creatinine [Mass/Vol] 0.80 mg/dL Invalid Interpretation Code 0.5-1.5 [employer] GFR/1.73 sq M.predicted among non-blacks MDRD (S/P/Bld) [Vol rate/Area] 70 mL/min/{1.73_m2} Invalid Interpretation Code [employer] Glucose [Mass/Vol] 144.0 mg/dL Invalid Interpretation Code 80-117 [employer] Ketones Ql (U) 2+ Invalid Interpretation Code Negative [employer] pH (U) 7 [pH] Invalid Interpretation Code 5.0-9.0 [employer] Potassium [Moles/Vol] 4.80 mmol/L Invalid Interpretation Code 3.5-5.3 [facility] Sodium [Moles/Vol] 140.0 mmol/L Invalid Interpretation Code 135-148 [facility] Specific gravity (U) [Rel density] 1.010 Invalid Interpretation Code 1.003-1.030 [facility] T4 [Mass/Vol] 8.12 ug/dL Invalid Interpretation Code 5.00-12.00 [employer] Triglyceride [Mass/Vol] 107.0 mg/dL Invalid Interpretation Code 30-150 [facility] TSH Qn 0.37 m[IU]/L Invalid Interpretation Code 0.50-4.00 [facility] Urea nitrogen [Mass/Vol] 19.0 mg/dL Invalid Interpretation Code 7-25 [facility] Urea nitrogen/Creatinine [Mass ratio] 24 mg/mg Invalid Interpretation Code 6-20 [facility] Urobilinogen (U) [Mass/Vol] normal Invalid Interpretation Code normal [facility] - Hematology and Cell countson 08-02-2021 HbA1c (Bld) [Mass fraction] 6.10 % Invalid Interpretation Code 4.3-6.3 [facility] Hemoglobin Ql (U) Negative Invalid Interpretation Code Negative [facility] - Specimen inform ationon 08-02-2021 Clarity (U) Sl. Cloudy Invalid Interpretation Code Clear [facility] Color (U) rafael Invalid Interpretation Code yellow [employer] [facility] - Urinalysison Glucose Test strip (U) [Mass/Vol] Negative Invalid Interpretation Code Negative [employer] Leukocyte esterase Test strip Ql (U) Negative Invalid Interpretation Code Negative [employer] Nitrite Ql (U) Negative Invalid Interpretation Code Negative [employer] Protein Ql (U) 1+ Invalid Interpretation Code Negative [employer] No Panel Informationon 08-02 128.0 mg/dL Invalid Interpretation Code [facility] 146 Invalid Interpretation Code 70-117 [employer] [facility] - Chemistry and C hemistry - challengeon 05-02-2021 Albumin (U) [Mass/Vol] 86.2 Invalid Interpretation Code <17.0 [facility] Albumin/Creatinine DL <= 20 mg/L (U) [Mass ratio] 45.3 mg/g Invalid Interpretation Code 0.0-30.0 [employer] Anion gap [Moles/Vol] 14 mmol/L Invalid Interpretation Code 10-20 [employer] Calcium [Mass/Vol] 9.20 mg/dL Invalid Interpretation Code 8.5-10.8 [employer] Chloride [Moles/Vol] 106.0 mmol/L Invalid Interpretation Code 100-112 [employer] CO2 [Moles/Vol] 27.0 mmol/L Invalid Interpretation Code 23-30 [employer] Creatinine (U) [Mass/Vol] 190.10 mg/dL Invalid Interpretation Code Not Estab. mg/dL [employer] Creatinine [Mass/Vol] 0.70 mg/dL Invalid Interpretation Code 0.5-1.5 [employer] GFR/1.73 sq M.predicted among non-blacks MDRD (S/P/Bld) [Vol rate/Area] 82 mL/min/{1.73_m2} Invalid Interpretation Code [facility] Glucose [Mass/Vol] 204.0 mg/dL Invalid Interpretation Code 80-117 [facility] Potassium [Moles/Vol] 4.80 mmol/L Invalid Interpretation Code 3.5-5.3 [facility] Sodium [Moles/Vol] 142.0 mmol/L Invalid Interpretation Code 135-148 [facility] T4 [Mass/Vol] 8.63 ug/dL Invalid Interpretation Code 5.00-12.00 [facility] TSH Qn 0.12 m[IU]/L Invalid Interpretation Code 0.50-4.00 [facility] Urea nitrogen [Mass/Vol] 25.0 mg/dL Invalid Interpretation Code 7-25 [facility] Urea nitrogen/Creatinine [Mass ratio] 36 mg/mg Invalid Interpretation Code 6-20 [facility] - Hematology and Cell countson 05-02-2021 HbA1c (Bld) [Mass fraction] 6.10 % Invalid Interpretation Code 4.3-6.3 [facility] No Panel Informationon 05-02 128.0 mg/dL Invalid Interpretation Code [employer] 194 Invalid Interpretation Code 70-117 [facility] - Chemistry and C hemistry - challengeon 02-02-2021 Albumin (U) [Mass/Vol] < 12.00 Invalid Interpretation Code < 17.0 ug/mL [employer] Anion gap [Moles/Vol] 10 mmol/L Invalid Interpretation Code 10-20 [facility] Calcium [Mass/Vol] 9.10 mg/dL Invalid Interpretation Code 8.5-10.8 [employer] Chloride [Moles/Vol] 105.0 mmol/L Invalid Interpretation Code 100-112 [facility] Cholesterol [Mass/Vol] 266.0 mg/dL Invalid Interpretation Code 0-200 [facility] Cholesterol in HDL [Mass/Vol] 89.0 mg/dL Invalid Interpretation Code 50-100 [employer] Cholesterol in LDL [Mass/Vol] 163.0 mg/dL Invalid Interpretation Code 0-130 [facility] Cholesterol in VLDL [Mass/Vol] 14.0 mg/dL Invalid Interpretation Code 0-39 [facility] Cholesterol.total/Ch olesterol in HDL [Mass ratio] 3 {ratio} Invalid Interpretation Code [employer] CO2 [Moles/Vol] 32.0 mmol/L Invalid Interpretation Code 23-30 [facility] Creatinine (U) [Mass/Vol] 116.30 mg/dL Invalid Interpretation Code Not Estab. mg/dL [facility] Creatinine [Mass/Vol] 0.70 mg/dL Invalid Interpretation Code 0.5-1.5 [facility] GFR/1.73 sq M.predicted among non-blacks MDRD (S/P/Bld) [Vol rate/Area] 82 mL/min/{1.73_m2} Invalid Interpretation Code [employer] Glucose [Mass/Vol] 162.0 mg/dL Invalid Interpretation Code 80-117 [employer] Potassium [Moles/Vol] 4.80 mmol/L Invalid Interpretation Code 3.5-5.3 [facility] Sodium [Moles/Vol] 142.0 mmol/L Invalid Interpretation Code 135-148 [facility] Triglyceride [Mass/Vol] 70.0 mg/dL Invalid Interpretation Code 30-150 [facility] Urea nitrogen [Mass/Vol] 24.0 mg/dL Invalid Interpretation Code 7-25 [facility] Urea nitrogen/Creatinine [Mass ratio] 34 mg/mg Invalid Interpretation Code 6-20 [facility] - Hematology and Cell countson 02-02-2021 HbA1c (Bld) [Mass fraction] 6.50 % Invalid Interpretation Code 4.3-6.3 [facility] - Urinalysison Glucose Test strip (U) [Mass/Vol] Negative Invalid Interpretation Code negative [facility] Protein (U) [Mass/Vol] trace Invalid Interpretation Code negative [facility] No Panel Informationon 02-02 140.0 mg/dL Invalid Interpretation Code [facility] 158 Invalid Interpretation Code 70-117 [facility] - Chemistry and C hemistry - challengeon 10-20-2020 T4 [Mass/Vol] 8.07 ug/dL Invalid Interpretation Code 5.00-12.00 [facility] TSH Qn 0.24 m[IU]/L Invalid Interpretation Code 0.50-4.00 [facility] - Hematology and Cell countson 10-20-2020 Erythrocyte distribution width (RBC) [Ratio] 13.60 % Invalid Interpretation Code 11.5-15.5 [employer] HbA1c (Bld) [Mass fraction] 6.40 % Invalid Interpretation Code 4.3-6.3 [employer] Hematocrit (Bld) [Volume fraction] 37.90 % Invalid Interpretation Code 35.7-47.1 [employer] Hemoglobin (Bld) [Mass/Vol] 12.30 g/dL Invalid Interpretation Code 11.9-15.7 [employer] MCH (RBC) [Entitic mass] 29.40 pg Invalid Interpretation Code 23.2-33.3 [employer] MCHC (RBC) [Mass/Vol] 32.50 g/dL Invalid Interpretation Code 32.0-36.0 [employer] MCV (RBC) [Entitic vol] 90.50 fL Invalid Interpretation Code 83.4-101.4 [employer] Platelet mean volume (Bld) [Entitic vol] 10.80 fL Invalid Interpretation Code 8.3-11.5 [employer] Platelets (Bld) [#/Vol] 213.0 10*3/uL Invalid Interpretation Code 150-400 [employer] RBC (Bld) [#/Vol] 4.190 10*6/uL Invalid Interpretation Code 3.72-5.24 [employer] WBC (Bld) [#/Vol] 4.90 10*3/uL Invalid Interpretation Code 3.9-10.3 [employer] [facility] - Urinalysison Glucose Test strip (U) [Mass/Vol] Negative Invalid Interpretation Code negative [employer] Protein (U) [Mass/Vol] Negative Invalid Interpretation Code negative [employer] No Panel Informationon 10-20 137.0 mg/dL Invalid Interpretation Code [employer] 146.0 mg/dL Invalid Interpretation Code <140 [employer] 176 Invalid Interpretation Code 70-117 [employer] CNOVSPon 10-06-2020 CNOVSP Visit (SP) Office ([place]) MARIANA VIVEROS ([id number]) 1950 F Date Time Provider Department 10/06/20 [...] hemangioma : Discussed with GI oncology on [facility] and surgical oncology with [...] with continue (more content not included)... Normal [facility] CNPToshia 10-04-2020 CNPN Telephone ([place]U) MARIANA VIVEROS ([id number]) 1950 F Date Time Provider Department 10/04/20 TESHA MULLINS During your visit today, we recorded the following information about you: TESHA MULLINS PA-C 10/04/2020 8:52 AM Signed Please call with normal CEA level and stable CT scans. Tesha Cruz, RN, RN 10/04/2020 12:42 PM Signed Pt viewed results on [place] [place]hart. Kareem Cruz RN Allergies As of Date: 10/04/2020 Noted Allergy Reaction DESONIDE 05/25/2019 16 - Unknown LATEX 05/25/2019 16 - Unknown [id number] REDUCTASE INHIBIT*05/25/2019 16 - Unknown ADHESIVE TAPE (ROSINS) 07/22/2015 5 - Intolerance Date Reviewed: 10/04/2020 Reviewed by: Tesha Mullins - Fully Assessed Reason for Visit: Results [...] CRUZ RN on 10/04/20 Normal [facility] CEAon 09-30-2020 CEA 2.8 ng/mL Normal 0.0-2.9 [facility] Comment on above: Result Comment: Test analyzed by the [employer] DxI method. Performed By: #### C EA #### [facility] [id number] ABD/PEL W IVCONon 021 CT ABD/PEL W IVCON * * *Final Report* * * DATE OF EXAM: Sep 30 2020 11:35AM [facility] 0530 - CT ABD/PEL W IVCON / [...] performed concurrently and will be dictated separately. Dial Painter (topogram) images: No additional findings. IMPRESSION: 1. [...] any questions regarding this interpretation, please call [phone]. If you are unable to reach us at the number above, please feel free to contact [facility] at [phone]. [id number] N Normal [facility] CT CHEST W IVCONon 1 CT CHEST W IVCON * * *Final Report* * * DATE OF EXAM: Sep 30 2020 11:35AM [facility] 0539 - CT CHEST W IVCON / [...] trachea and major airways appear patent. Linear atelectasis/scarring at the lung bases bilaterally is again [...] performed concurrently and will be dictated separately. Dial Painter (topogram) images: No additional findings. IMPRESSION: Stable [...] any questions regarding this interpretation, please call [phone]. If you are unable to reach us at the number above, please feel free to contact [facility] at [phone]. [id number] N Normal [facility] Comp Metabolic Panelon 09-30 Albumin [Mass/Vol] 4.2 g/dL Normal 3.9-4.9 [facility] ALP [Catalytic activity/Vol] 128 U/L High 34-123 [facility] ALT [Catalytic activity/Vol] 25 U/L Normal 7-38 [facility] Anion gap [Moles/Vol] 5 mmol/L Low 9-18 [facility] AST [Catalytic activity/Vol] 27 U/L Normal 13-35 [facility] Bilirubin [Mass/Vol] 0.6 mg/dL Normal 0.2-1.3 [facility] Calcium [Mass/Vol] 9.5 mg/dL Normal 8.5-10.2 [facility] Chloride [Moles/Vol] 105 mmol/L Normal 97-105 [facility] CO2 [Moles/Vol] 32 mmol/L High 22-30 [facility] Creatinine [Mass/Vol] 0.67 mg/dL Normal 0.58-0.96 [facility] eGFR- Amer. >60 Normal [facility] eGFR-All Other Races >60 Normal [facility] Comment on above: Result Comment: eGFR [...] Glucose [Mass/Vol] 190 mg/dL High 74-99 [facility] Comment on above: Result Comment: The [place] [employer] (ADA) provides guidance for cutoff [...] Standards of Medical Care in Diabetes 2016, [place] [employer]. Diabetes Care. 2016.39(Suppl 1). Potassium [Moles/Vol] 4.8 mmol/L Normal 3.7-5.1 [facility] Protein [Mass/Vol] 6.6 g/dL Normal 6.3-8.0 [facility] Sodium [Moles/Vol] 142 mmol/L Normal 136-144 [facility] Urea nitrogen [Mass/Vol] 21 mg/dL Normal 7-21 [facility] Remote CBCDIF (for [facility] use o nly)on 09-30-2020 Abs Baso 0.04 k/uL Normal <0.11 [facility] Abs [place] 0.44 k/uL Normal <0.87 [facility] Abs Neut 4.94 k/uL Normal 1.45-7.50 [facility] Absolute nRBC <0.01 Normal <0.01 [facility] Basophils/100 WBC (Bld) 0.6 % Normal [facility] DTYPE Auto Diff Normal [facility] Eosinophils (Bld) [#/Vol] 0.06 10*3/uL Normal <0.46 [facility] Eosinophils/100 WBC (Bld) 0.9 % Normal [facility] Erythrocyte distribution width (RBC) [Ratio] 13.5 % Normal 11.5-15.0 [facility] Hematocrit (Bld) [Volume fraction] 39.0 % Normal 36.0-46.0 [facility] Hemoglobin (Bld) [Mass/Vol] 12.9 g/dL Normal 11.5-15.5 [facility] Lymphocytes (Bld) [#/Vol] 1.46 10*3/uL Normal 1.00-4.00 [facility] Lymphocytes/100 WBC (Bld) 21.0 % Normal [facility] MCH 29.6 pG Normal 26.0-34.0 [facility] MCHC (RBC) [Mass/Vol] 33.1 g/dL Normal 30.5-36.0 [facility] MCV (RBC) [Entitic vol] 89.4 fL Normal 80.0-100.0 [facility] Monocytes/100 WBC (Bld) 6.3 % Normal [facility] Neutrophils/100 WBC (Bld) 71.2 % Normal [facility] NRBCs 0.0 /100 WBC Normal 0 [facility] Platelet mean volume (Bld) [Entitic vol] 10.4 fL Normal 9.0-12.7 [facility] Platelets (Bld) [#/Vol] 184 10*3/uL Normal 150-400 [facility] RBC (Bld) [#/Vol] 4.36 10*6/uL Normal 3.90-5.20 [facility] WBC (Bld) [#/Vol] 6.96 10*3/uL Normal 3.70-11.00 [facility] Cardiacon 07-21-2020 Cholesterol [Mass/Vol] 230.0 mg/dL Invalid Interpretation Code 0-200 [facility] Cholesterol in HDL [Mass/Vol] 75.0 mg/dL Invalid Interpretation Code 50-100 [facility] Cholesterol in LDL [Mass/Vol] 139.0 mg/dL Invalid Interpretation Code 0-130 [facility] Triglyceride [Mass/Vol] 82.0 mg/dL Invalid Interpretation Code 30-150 [facility] CoV2 IgG Ab,Son 07-21-2020 Date of onset [id number] Normal [facility] Comment on above: Performed By: #### C [id number] #### [id number] [place] [address] Employed in healthcare? Unknown Normal [facility] Comment on above: Performed By: #### C [id number] #### [address] [place] [address] Group care resident? Unknown Normal [facility] Comment on above: Performed By: #### C [id number] #### [facility] [address] [place] [address] Hospitalized due to COVID-19? Unknown Normal [facility] Comment on above: Performed By: #### C [id number] #### [address] [id number] In ICU? Unknown Normal [facility] Comment on above: Performed By: #### C [id number] #### [address] [place] [address] Is this the first test for COVID? Unknown Normal [facility] Comment on above: Performed By: #### C [id number] #### [address] [address] status? Unknown Normal [facility] Comment on above: Performed By: #### C [id number] #### [address] [place] [address] SARS-CoV-2 IgG Ab Reactive Abnormal Non-Reactive [facility] [place] Comment on above: Result Comment: SARS -CoV-2 IgG antibodies detected. Results suggest recent or prior infection with SARS-CoV-2. Reactive results may also be due to past or present infection with [id number] coronavirus strains, such as coronavirus HKU1, NL63, [...] the ACCESS SARS-CoV-2 IgG Antibody assay by [employer], which has received Emergency Use Authorization (EUA) by the U.S. Food and Drug Administration. Fact sheets for this Emergency Use Authorization (EUA) assay can be found at the following locations: For Healthcare Providers: [email or web address] For Patients: [email or web address] Performed By: #### C [id number] #### [facility] [address] [place] [address] Symptomatic as defined by CDC? Unknown Normal [facility] Comment on above: Performed By: #### C [id number] #### [facility] [address] [place] [address] Laboratory - Chemistry and C hemistry - challengeon 07-21-2020 Cholesterol.total/Ch olesterol in HDL [Mass ratio] 3 {ratio} Invalid Interpretation Code [facility] - Urinalysison Glucose Test strip (U) [Mass/Vol] Negative Invalid Interpretation Code negative [facility] Protein (U) [Mass/Vol] Negative Invalid Interpretation Code negative [facility] Metabolic Panelon 07-21-2020 Anion gap [Moles/Vol] 11 mmol/L Invalid Interpretation Code 10-20 [facility] Calcium [Mass/Vol] 9.10 mg/dL Invalid Interpretation Code 8.5-10.8 [employer] Chloride [Moles/Vol] 104.0 mmol/L Invalid Interpretation Code 100-112 [employer] CO2 [Moles/Vol] 29.0 mmol/L Invalid Interpretation Code 23-30 [employer] Creatinine [Mass/Vol] 0.80 mg/dL Invalid Interpretation Code 0.5-1.5 [employer] GFR/1.73 sq M predicted among non-blacks MDRD (S/P/Bld) [Vol rate/Area] 71 mL/min/{1.73_m2} Invalid Interpretation Code [facility] Glucose [Mass/Vol] 188 mg/dL 70-117 [facility] [employer] [facility] Glucose [Mass/Vol] 189.0 mg/dL Invalid Interpretation Code 80-[address] [facility] [employer] HbA1c (Bld) [Mass fraction] 6.50 % Invalid Interpretation Code 4.3-6.[address] [facility] [employer] Potassium [Moles/Vol] 4.70 mmol/L Invalid Interpretation Code 3.5-5.3 [employer] Sodium [Moles/Vol] 139.0 mmol/L Invalid Interpretation Code 135-[address] [facility] [employer] Urea nitrogen [Mass/Vol] 15.0 mg/dL Invalid Interpretation Code 7-25 [employer] Urea nitrogen/Creatinine [Mass ratio] 19 mg/mg Invalid Interpretation Code 6-20 [employer] No Panel Informationon 07-21 188 Invalid Interpretation Code 70-117 [employer] Otheron 07-21-2020 Cholesterol in VLDL [Mass/Vol] 16.0 mg/dL Invalid Interpretation Code 0-39 [employer] [facility] Cholesterol.total/Ch olesterol in HDL [Mass ratio] 3 (calc) [facility] Glucose Test strip (U) [Mass/Vol] Negative negative [facility] 140.0 mg/dL Invalid Interpretation Code [employer] Thyroidon 07-21-2020 T4 [Mass/Vol] 9.72 ug/dL Invalid Interpretation Code 5.00-12.00 [facility] TSH Qn 0.10 m[IU]/L Invalid Interpretation Code 0.50-4.00 [employer] Urinalysison 07-21-2020 Protein (U) [Mass/Vol] Negative negative [facility] 04-14-2020 Cholesterol [Mass/Vol] 245.0 mg/dL Invalid Interpretation Code 0-200 [employer] Cholesterol in HDL [Mass/Vol] 82.0 mg/dL Invalid Interpretation Code 50-100 [employer] Cholesterol in LDL [Mass/Vol] 146.0 mg/dL Invalid Interpretation Code 0-130 [employer] Triglyceride [Mass/Vol] 83.0 mg/dL Invalid Interpretation Code 30-150 [employer] Laboratory - Chemistry and C hemistry - challengeon 04-14-2020 Cholesterol.total/Ch olesterol in HDL [Mass ratio] 3 {ratio} Invalid Interpretation Code [facility] - Urinalysison Glucose Test strip (U) [Mass/Vol] Negative Invalid Interpretation Code negative [facility] Protein (U) [Mass/Vol] Negative Invalid Interpretation Code negative [facility] Metabolic Panelon 04-14-2020 Anion gap [Moles/Vol] 14 mmol/L Invalid Interpretation Code 10-20 [employer] Calcium [Mass/Vol] 9.20 mg/dL Invalid Interpretation Code 8.5-10.8 [employer] Chloride [Moles/Vol] 104.0 mmol/L Invalid Interpretation Code 100-112 [employer] CO2 [Moles/Vol] 29.0 mmol/L Invalid Interpretation Code 23-30 [employer] Creatinine [Mass/Vol] 0.60 mg/dL Invalid Interpretation Code 0.5-1.5 [employer] GFR/1.73 sq M predicted among non-blacks MDRD (S/P/Bld) [Vol rate/Area] 98 mL/min/{1.73_m2} Invalid Interpretation Code [facility] Glucose [Mass/Vol] 133.0 mg/dL Invalid Interpretation Code 80-117 [employer] HbA1c (Bld) [Mass fraction] 6.50 % Invalid Interpretation Code 4.3-6.3 [employer] Potassium [Moles/Vol] 4.70 mmol/L Invalid Interpretation Code 3.5-5.3 [employer] Sodium [Moles/Vol] 142.0 mmol/L Invalid Interpretation Code 135-148 [employer] Urea nitrogen [Mass/Vol] 17.0 mg/dL Invalid Interpretation Code 7-25 [employer] Urea nitrogen/Creatinine [Mass ratio] 28 mg/mg Invalid Interpretation Code 6-20 [employer] Otheron 04-14-2020 Cholesterol in VLDL [Mass/Vol] 17.0 mg/dL Invalid Interpretation Code 0-39 [employer] Cholesterol.total/Ch olesterol in HDL [Mass ratio] 3 (calc) [employer] Glucose Test strip (U) [Mass/Vol] Negative negative [employer] Urate [Mass/Vol] 2.80 mg/dL Invalid Interpretation Code 2.4-7.0 [employer] 140.0 mg/dL Invalid Interpretation Code [employer] Urinalysison 04-14-2020 Protein (U) [Mass/Vol] Negative negative [employer] Laboratory - Chemistry and C hemistry - challengeon 01-14-2020 Albumin (U) [Mass/Vol] < 12.00 Invalid Interpretation Code < 17.0 ug/mL [employer] Anion gap [Moles/Vol] 15 mmol/L Invalid Interpretation Code 10-20 [employer] Calcium [Mass/Vol] 8.90 mg/dL Invalid Interpretation Code 8.5-10.8 [employer] Chloride [Moles/Vol] 102.0 mmol/L Invalid Interpretation Code 100-112 [employer] CO2 [Moles/Vol] 29.0 mmol/L Invalid Interpretation Code 23-30 [employer] Creatinine (U) [Mass/Vol] 20.10 mg/dL Invalid Interpretation Code Not Estab. mg/dL [employer] Creatinine [Mass/Vol] 0.60 mg/dL Invalid Interpretation Code 0.5-1.5 [employer] GFR/1.73 sq M.predicted among non-blacks MDRD (S/P/Bld) [Vol rate/Area] 98 mL/min/{1.73_m2} Invalid Interpretation Code [employer] Glucose [Mass/Vol] 148.0 mg/dL Invalid Interpretation Code 80-117 [employer] Potassium [Moles/Vol] 4.70 mmol/L Invalid Interpretation Code 3.5-5.3 [employer] Sodium [Moles/Vol] 141.0 mmol/L Invalid Interpretation Code 135-148 [employer] T4 [Mass/Vol] 9.01 ug/dL Invalid Interpretation Code 5.00-12.00 [facility] TSH Qn 0.24 m[IU]/L Invalid Interpretation Code 0.50-4.00 [facility] Urea nitrogen [Mass/Vol] 16.0 mg/dL Invalid Interpretation Code 7-25 [facility] Urea nitrogen/Creatinine [Mass ratio] 27 mg/mg Invalid Interpretation Code 6-20 [facility] Laboratory - Hematology and Cell countson 01-14-2020 HbA1c (Bld) [Mass fraction] 6.80 % Invalid Interpretation Code 4.3-6.3 [facility] - Urinalysison Glucose Test strip (U) [Mass/Vol] Negative Invalid Interpretation Code negative [facility] Protein (U) [Mass/Vol] Negative Invalid Interpretation Code negative [facility] No Panel Informationon 01-13 148.0 mg/dL Invalid Interpretation Code [facility] 08-21-2019 Cholesterol [Mass/Vol] 283.0 mg/dL Invalid Interpretation Code 0-200 [facility] Cholesterol in HDL [Mass/Vol] 87.0 mg/dL Invalid Interpretation Code 50-100 [facility] Cholesterol in LDL [Mass/Vol] 177.0 mg/dL Invalid Interpretation Code 0-130 [employer] Triglyceride [Mass/Vol] 97.0 mg/dL Invalid Interpretation Code 30-150 [facility] - Urinalysison Glucose Test strip (U) [Mass/Vol] Negative Invalid Interpretation Code negative [facility] Protein (U) [Mass/Vol] Negative Invalid Interpretation Code negative [employer] Metabolic Panelon 08-21-2019 Anion gap [Moles/Vol] 14 mmol/L Invalid Interpretation Code 10-20 [employer] Calcium [Mass/Vol] 9.30 mg/dL Invalid Interpretation Code 8.5-10.8 [employer] Chloride [Moles/Vol] 103.0 mmol/L Invalid Interpretation Code 100-112 [employer] CO2 [Moles/Vol] 28.0 mmol/L Invalid Interpretation Code 23-30 [employer] Creatinine [Mass/Vol] 0.70 mg/dL Invalid Interpretation Code 0.5-1.5 [employer] GFR/1.73 sq M predicted among non-blacks MDRD (S/P/Bld) [Vol rate/Area] 83 mL/min/{1.73_m2} Invalid Interpretation Code [employer] Glucose [Mass/Vol] 151.0 mg/dL Invalid Interpretation Code 80-117 [employer] HbA1c (Bld) [Mass fraction] 7.0 % Invalid Interpretation Code 4.3-6.3 [employer] Potassium [Moles/Vol] 4.50 mmol/L Invalid Interpretation Code 3.5-5.3 [employer] Sodium [Moles/Vol] 140.0 mmol/L Invalid Interpretation Code 135-148 [employer] Urea nitrogen [Mass/Vol] 18.0 mg/dL Invalid Interpretation Code 7-25 [employer] Urea nitrogen/Creatinine [Mass ratio] 26 mg/mg Invalid Interpretation Code 6-20 [employer] Otheron 08-21-2019 Cholesterol in VLDL [Mass/Vol] 19.0 mg/dL Invalid Interpretation Code 0-39 [employer] Cholesterol.total/Ch olesterol in HDL [Mass ratio] 3 {ratio} Invalid Interpretation Code [employer] Glucose Test strip (U) [Mass/Vol] Negative negative [employer] 154 [employer] 154.0 mg/dL Invalid Interpretation Code [employer] Urinalysison 08-21-2019 Protein (U) [Mass/Vol] Negative negative [employer] Laboratory - Urinalysison Glucose Test strip (U) [Mass/Vol] Negative Invalid Interpretation Code negative [employer] Protein (U) [Mass/Vol] Negative Invalid Interpretation Code negative [employer] Metabolic Panelon 05-22-2019 Anion gap [Moles/Vol] 14 mmol/L Invalid Interpretation Code 10-20 [employer] Calcium [Mass/Vol] 9.50 mg/dL Invalid Interpretation Code 8.5-10.8 [employer] Chloride [Moles/Vol] 103.0 mmol/L Invalid Interpretation Code 100-112 [employer] CO2 [Moles/Vol] 31.0 mmol/L Invalid Interpretation Code 23-30 [employer] Creatinine [Mass/Vol] 0.70 mg/dL Invalid Interpretation Code 0.5-1.5 [employer] GFR/1.73 sq M predicted among non-blacks MDRD (S/P/Bld) [Vol rate/Area] 83 mL/min/{1.73_m2} Invalid Interpretation Code [employer] Glucose [Mass/Vol] 77.0 mg/dL Invalid Interpretation Code 80-117 [employer] HbA1c (Bld) [Mass fraction] 6.60 % Invalid Interpretation Code 4.3-6.3 [employer] Potassium [Moles/Vol] 4.60 mmol/L Invalid Interpretation Code 3.5-5.3 [employer] Sodium [Moles/Vol] 143.0 mmol/L Invalid Interpretation Code 135-148 [employer] Urea nitrogen [Mass/Vol] 14.0 mg/dL Invalid Interpretation Code 7-25 [employer] Urea nitrogen/Creatinine [Mass ratio] 20 mg/mg Invalid Interpretation Code 6-20 [employer] Otheron 05-22-2019 Albumin (U) [Mass/Vol] 13.0 Invalid Interpretation Code <17.0 [employer] Glucose Test strip (U) [Mass/Vol] Negative negative [employer] See Above Invalid Interpretation Code 0-0 [employer] 143 [employer] 143.0 mg/dL Invalid Interpretation Code [employer] Urinalysison 05-22-2019 Albumin/Creatinine DL <= 20 mg/L (U) [Mass ratio] 6.6 mg/g Invalid Interpretation Code 0.0-30.0 [employer] Creatinine (U) [Mass/Vol] 197.80 mg/dL Invalid Interpretation Code Not Estab. mg/dL [employer] Protein (U) [Mass/Vol] Negative negative [employer] [facility] 02-12-2019 Cholesterol [Mass/Vol] 264.0 mg/dL Invalid Interpretation Code 0-200 [employer] Cholesterol in HDL [Mass/Vol] 69.0 mg/dL Invalid Interpretation Code 50-100 [employer] Cholesterol in LDL [Mass/Vol] 169.0 mg/dL Invalid Interpretation Code 0-130 [employer] Triglyceride [Mass/Vol] 132.0 mg/dL Invalid Interpretation Code 30-150 [employer] Hematologyon 02-12-2019 Hematocrit (Bld) [Volume fraction] 39.90 % Invalid Interpretation Code 35.7-47.1 [employer] Hemoglobin (Bld) [Mass/Vol] 13.30 g/dL Invalid Interpretation Code 11.9-15.7 [employer] MCH (RBC) [Entitic mass] 29.80 pg Invalid Interpretation Code 23.2-33.3 [employer] MCV (RBC) [Entitic vol] 89.50 fL Invalid Interpretation Code 83.4-101.4 [employer] Platelets (Bld) [#/Vol] 211.0 10*3/uL Invalid Interpretation Code 150-400 [employer] RBC (Bld) [#/Vol] 4.460 10*6/uL Invalid Interpretation Code 3.72-5.24 [employer] WBC (Bld) [#/Vol] 4.60 10*3/uL Invalid Interpretation Code 3.9-10.3 [employer] Laboratory - Urinalysison Glucose Test strip (U) [Mass/Vol] Negative Invalid Interpretation Code negative [employer] Metabolic Panelon 02-12-2019 Anion gap [Moles/Vol] 12 mmol/L Invalid Interpretation Code 10-20 [employer] Calcium [Mass/Vol] 9.0 mg/dL Invalid Interpretation Code 8.5-10.8 [employer] Chloride [Moles/Vol] 106.0 mmol/L Invalid Interpretation Code 100-112 [employer] CO2 [Moles/Vol] 30.0 mmol/L Invalid Interpretation Code 23-30 [employer] Creatinine [Mass/Vol] 0.70 mg/dL Invalid Interpretation Code 0.5-1.5 [employer] GFR/1.73 sq M predicted among non-blacks MDRD (S/P/Bld) [Vol rate/Area] 83 mL/min/{1.73_m2} Invalid Interpretation Code [employer] Glucose [Mass/Vol] 82.0 mg/dL Invalid Interpretation Code 80-117 [employer] HbA1c (Bld) [Mass fraction] 7.20 % Invalid Interpretation Code 4.3-6.3 [employer] Potassium [Moles/Vol] 4.20 mmol/L Invalid Interpretation Code 3.5-5.3 [employer] Sodium [Moles/Vol] 144.0 mmol/L Invalid Interpretation Code 135-148 [employer] Urea nitrogen [Mass/Vol] 17.0 mg/dL Invalid Interpretation Code 7-25 [employer] Urea nitrogen/Creatinine [Mass ratio] 24 mg/mg Invalid Interpretation Code 6-20 [employer] Otheron 02-12-2019 Albumin (U) [Mass/Vol] 12.7 Invalid Interpretation Code <17.0 [employer] Cholesterol in VLDL [Mass/Vol] 26.0 mg/dL Invalid Interpretation Code 0-39 [employer] Cholesterol.total/Ch olesterol in HDL [Mass ratio] 4 {ratio} Invalid Interpretation Code [employer] Erythrocyte distribution width (RBC) [Ratio] 13.0 % Invalid Interpretation Code 11.5-15.5 [employer] Glucose Test strip (U) [Mass/Vol] Negative negative [employer] MCHC (RBC) [Mass/Vol] 33.30 g/dL Invalid Interpretation Code 32.0-36.0 [employer] Platelet mean volume (Bld) [Entitic vol] 10.70 fL Invalid Interpretation Code 8.3-11.5 [employer] 160 [employer] See Above Invalid Interpretation Code 0-0 [employer] 160.0 mg/dL Invalid Interpretation Code [employer] Thyroidon 02-12-2019 T4 [Mass/Vol] 7.63 ug/dL Invalid Interpretation Code 5.00-12.00 [employer] TSH Qn 0.44 m[IU]/L Invalid Interpretation Code 0.50-4.00 [employer] Urinalysison 02-12-2019 Albumin/Creatinine DL <= 20 mg/L (U) [Mass ratio] 5.1 mg/g Invalid Interpretation Code 0.0-30.0 [employer] Creatinine (U) [Mass/Vol] 250.20 mg/dL Invalid Interpretation Code Not Estab. mg/dL [employer] Protein (U) [Mass/Vol] trace Invalid Interpretation Code negative [employer] [facility] 11-28-2018 Cholesterol [Mass/Vol] 257.0 mg/dL Invalid Interpretation Code 0-200 [employer] Cholesterol in HDL [Mass/Vol] 66.0 mg/dL Invalid Interpretation Code 50-100 [employer] Cholesterol in LDL [Mass/Vol] 161.0 mg/dL Invalid Interpretation Code 0-130 [employer] Triglyceride [Mass/Vol] 152.0 mg/dL Invalid Interpretation Code 30-150 [employer] Metabolic Panelon 11-28-2018 Anion gap [Moles/Vol] 14 mmol/L Invalid Interpretation Code 10-20 [employer] Calcium [Mass/Vol] 9.20 mg/dL Invalid Interpretation Code 8.5-10.8 [employer] Chloride [Moles/Vol] 104.0 mmol/L Invalid Interpretation Code 100-112 [employer] CO2 [Moles/Vol] 30.0 mmol/L Invalid Interpretation Code 23-30 [employer] Creatinine [Mass/Vol] 0.70 mg/dL Invalid Interpretation Code 0.5-1.5 [employer] GFR/1.73 sq M predicted among non-blacks MDRD (S/P/Bld) [Vol rate/Area] 83 mL/min/{1.73_m2} Invalid Interpretation Code [employer] Glucose [Mass/Vol] 169.0 mg/dL Invalid Interpretation Code 80-117 [employer] HbA1c (Bld) [Mass fraction] 7.10 % Invalid Interpretation Code 4.3-6.3 [employer] Potassium [Moles/Vol] 4.50 mmol/L Invalid Interpretation Code 3.5-5.3 [employer] Sodium [Moles/Vol] 143.0 mmol/L Invalid Interpretation Code 135-148 [employer] Urea nitrogen [Mass/Vol] 21.0 mg/dL Invalid Interpretation Code 7-25 [employer] Urea nitrogen/Creatinine [Mass ratio] 30 mg/mg Invalid Interpretation Code 6-20 [employer] Otheron 11-28-2018 Cholesterol in VLDL [Mass/Vol] 30.0 mg/dL Invalid Interpretation Code 0-39 [employer] Cholesterol.total/Ch olesterol in HDL [Mass ratio] 4 {ratio} Invalid Interpretation Code [employer] See Above Invalid Interpretation Code 0-0 [employer] 157 [employer] 157.0 mg/dL Invalid Interpretation Code [employer] Metabolic Panelon 08-29-2018 Anion gap [Moles/Vol] 14 mmol/L Invalid Interpretation Code 10-20 [employer] Calcium [Mass/Vol] 9.30 mg/dL Invalid Interpretation Code 8.5-10.8 [employer] Chloride [Moles/Vol] 102 mmol/L Invalid Interpretation Code 100-112 [employer] CO2 [Moles/Vol] 29 mmol/L Invalid Interpretation Code 23-30 [employer] Creatinine [Mass/Vol] 0.80 mg/dL Invalid Interpretation Code 0.5-1.5 [employer] GFR/1.73 sq M predicted among non-blacks MDRD (S/P/Bld) [Vol rate/Area] 71 mL/min/{1.73_m2} Invalid Interpretation Code [employer] Glucose [Mass/Vol] 185.0 mg/dL Invalid Interpretation Code 80-117 [employer] HbA1c (Bld) [Mass fraction] 6.70 % Invalid Interpretation Code 4.3-6.3 [employer] Potassium [Moles/Vol] 4.3 mmol/L Invalid Interpretation Code 3.5-5.3 [employer] Sodium [Moles/Vol] 141 mmol/L Invalid Interpretation Code 135-148 [employer] Urea nitrogen [Mass/Vol] 23.0 mg/dL Invalid Interpretation Code 7-25 [employer] Urea nitrogen/Creatinine [Mass ratio] 29 mg/mg Invalid Interpretation Code 6-20 [employer] Otheron 08-29-2018 Albumin (U) [Mass/Vol] 15.9 Invalid Interpretation Code <17.0 [employer] 146 [employer] 146.0 mg/dL Invalid Interpretation Code [employer] Urinalysison 08-29-2018 Albumin/Creatinine DL <= 20 mg/L (U) [Mass ratio] 8.5 mg/g Invalid Interpretation Code 0.0-30.0 [employer] Creatinine (U) [Mass/Vol] 187.40 mg/dL Invalid Interpretation Code Not Estab. mg/dL [employer] No Panel Informationon 08-01 Diabetic Retinal Eye Exam Invalid Interpretation Code [employer] [facility] 05-30-2018 Cholesterol [Mass/Vol] 266.0 mg/dL Invalid Interpretation Code 0-200 [employer] Cholesterol in HDL [Mass/Vol] 77.0 mg/dL Invalid Interpretation Code 50-100 [employer] Cholesterol in LDL [Mass/Vol] 166.0 mg/dL Invalid Interpretation Code 0-130 [employer] Triglyceride [Mass/Vol] 115.0 mg/dL Invalid Interpretation Code 30-150 [employer] Laboratory - Urinalysison Glucose Test strip (U) [Mass/Vol] Negative Invalid Interpretation Code negative [employer] Protein (U) [Mass/Vol] Negative Invalid Interpretation Code negative [employer] Metabolic Panelon 05-30-2018 Anion gap [Moles/Vol] 13 mmol/L Invalid Interpretation Code 10-20 [employer] Calcium [Mass/Vol] 9.30 mg/dL Invalid Interpretation Code 8.5-10.8 [employer] Chloride [Moles/Vol] 104 mmol/L Invalid Interpretation Code 100-112 [employer] CO2 [Moles/Vol] 28 mmol/L Invalid Interpretation Code 23-30 [employer] Creatinine [Mass/Vol] 0.70 mg/dL Invalid Interpretation Code 0.5-1.5 [employer] GFR/1.73 sq M predicted among non-blacks MDRD (S/P/Bld) [Vol rate/Area] 83 mL/min/{1.73_m2} Invalid Interpretation Code [employer] Glucose [Mass/Vol] 188.0 mg/dL Invalid Interpretation Code 80-117 [employer] HbA1c (Bld) [Mass fraction] 6.60 % Invalid Interpretation Code 4.3-6.3 [employer] Potassium [Moles/Vol] 4.6 mmol/L Invalid Interpretation Code 3.5-5.3 [employer] Sodium [Moles/Vol] 140 mmol/L Invalid Interpretation Code 135-148 [employer] Urea nitrogen [Mass/Vol] 20.0 mg/dL Invalid Interpretation Code 7-25 [employer] Urea nitrogen/Creatinine [Mass ratio] 29 mg/mg Invalid Interpretation Code 6-20 [employer] Otheron 05-30-2018 Cholesterol in VLDL [Mass/Vol] 23.0 mg/dL Invalid Interpretation Code 0-39 [employer] Cholesterol.total/Ch olesterol in HDL [Mass ratio] 3 {ratio} Invalid Interpretation Code [employer] Glucose Test strip (U) [Mass/Vol] Negative negative [employer] 143 [employer] See Above Invalid Interpretation Code 0-0 [employer] 143.0 mg/dL Invalid Interpretation Code [employer] Thyroidon 05-30-2018 T4 [Mass/Vol] 7.83 ug/dL Invalid Interpretation Code 5.00-12.00 [employer] TSH Qn 0.47 m[IU]/L Invalid Interpretation Code 0.50-4.00 [employer] Urinalysison 05-30-2018 Protein (U) [Mass/Vol] Negative negative [employer] Metabolic Panelon 02-28-2018 Anion gap [Moles/Vol] 14 mmol/L Invalid Interpretation Code 10-20 [employer] [employer] Calcium [Mass/Vol] 9.0 mg/dL Invalid Interpretation Code 8.5-10.8 [employer] Chloride [Moles/Vol] 105 mmol/L Invalid Interpretation Code 100-112 [employer] CO2 [Moles/Vol] 27 mmol/L Invalid Interpretation Code 23-30 [employer] Creatinine [Mass/Vol] 0.80 mg/dL Invalid Interpretation Code 0.5-1.5 [employer] GFR/1.73 sq M predicted among non-blacks MDRD (S/P/Bld) [Vol rate/Area] 71 mL/min/{1.73_m2} Invalid Interpretation Code [employer] Glucose [Mass/Vol] 230.0 mg/dL Invalid Interpretation Code 80-117 [employer] HbA1c (Bld) [Mass fraction] 6.50 % Invalid Interpretation Code 4.3-6.3 [employer] Potassium [Moles/Vol] 4.6 mmol/L Invalid Interpretation Code 3.5-5.3 [employer] Sodium [Moles/Vol] 141 mmol/L Invalid Interpretation Code 135-148 [employer] Urea nitrogen [Mass/Vol] 24.0 mg/dL Invalid Interpretation Code 7-25 [employer] Urea nitrogen/Creatinine [Mass ratio] 30 mg/mg Invalid Interpretation Code 6-20 [employer] Otheron 02-28-2018 Albumin (U) [Mass/Vol] < 12.00 Invalid Interpretation Code < 17.0 ug/mL [employer] 140 [employer] 140.0 mg/dL Invalid Interpretation Code [employer] Urinalysison 02-28-2018 Creatinine (U) [Mass/Vol] 84.60 mg/dL Invalid Interpretation Code Not Estab. mg/dL [employer] [facility] 11-29-2017 Cholesterol [Mass/Vol] 264.0 mg/dL Invalid Interpretation Code 0-200 [employer] Cholesterol in HDL [Mass/Vol] 74.0 mg/dL Invalid Interpretation Code 50-100 [employer] Cholesterol in LDL [Mass/Vol] 164.0 mg/dL Invalid Interpretation Code 0-130 [employer] Triglyceride [Mass/Vol] 131.0 mg/dL Invalid Interpretation Code 30-150 [employer] Laboratory - Urinalysison Glucose Test strip (U) [Mass/Vol] Negative Invalid Interpretation Code negative [employer] Protein (U) [Mass/Vol] Negative Invalid Interpretation Code negative [employer] Metabolic Panelon 11-29-2017 Anion gap [Moles/Vol] 14 mmol/L Invalid Interpretation Code 10-20 [employer] Calcium [Mass/Vol] 9.0 mg/dL Invalid Interpretation Code 8.5-10.8 [employer] Chloride [Moles/Vol] 102 mmol/L Invalid Interpretation Code 100-112 [employer] CO2 [Moles/Vol] 29 mmol/L Invalid Interpretation Code 23-30 [employer] Creatinine [Mass/Vol] 0.70 mg/dL Invalid Interpretation Code 0.5-1.5 [employer] GFR/1.73 sq M predicted among non-blacks MDRD (S/P/Bld) [Vol rate/Area] 83 mL/min/{1.73_m2} Invalid Interpretation Code [employer] Glucose [Mass/Vol] 159.0 mg/dL Invalid Interpretation Code 80-117 [employer] HbA1c (Bld) [Mass fraction] 6.70 % Invalid Interpretation Code 4.3-6.3 [employer] Potassium [Moles/Vol] 4.6 mmol/L Invalid Interpretation Code 3.5-5.3 [employer] Sodium [Moles/Vol] 140 mmol/L Invalid Interpretation Code 135-148 [employer] Urea nitrogen [Mass/Vol] 16.0 mg/dL Invalid Interpretation Code 7-25 [employer] Urea nitrogen/Creatinine [Mass ratio] 23 mg/mg Invalid Interpretation Code 6-20 [employer] Otheron 11-29-2017 Albumin (U) [Mass/Vol] < 12.00 Invalid Interpretation Code < 17.0 ug/mL [employer] Cholesterol in VLDL [Mass/Vol] 26.0 mg/dL Invalid Interpretation Code 0-39 [employer] Cholesterol.total/Ch olesterol in HDL [Mass ratio] 4 {ratio} Invalid Interpretation Code [employer] Glucose Test strip (U) [Mass/Vol] Negative negative [employer] pH (U) 7.0 [pH] Invalid Interpretation Code 4.5-7.8 [employer] See Above Invalid Interpretation Code 0-0 [employer] 146 [employer] 146.0 mg/dL Invalid Interpretation Code [employer] Urinalysison 11-29-2017 Creatinine (U) [Mass/Vol] 71.60 mg/dL Invalid Interpretation Code Not Estab. mg/dL [employer] Protein (U) [Mass/Vol] Negative negative [employer] [facility] 08-30-2017 Cholesterol [Mass/Vol] 267.0 mg/dL Invalid Interpretation Code 0-200 [employer] Cholesterol in HDL [Mass/Vol] 69.0 mg/dL Invalid Interpretation Code 50-100 [employer] Cholesterol in LDL [Mass/Vol] 169.0 mg/dL Invalid Interpretation Code 0-130 [employer] Triglyceride [Mass/Vol] 147.0 mg/dL Invalid Interpretation Code 30-150 [employer] Laboratory - Urinalysison Glucose Test strip (U) [Mass/Vol] Negative Invalid Interpretation Code negative [employer] Protein (U) [Mass/Vol] Negative Invalid Interpretation Code negative [employer] Metabolic Panelon 08-30-2017 Anion gap [Moles/Vol] 13 mmol/L Invalid Interpretation Code 10-20 [employer] Calcium [Mass/Vol] 9.20 mg/dL Invalid Interpretation Code 8.5-10.8 [employer] Chloride [Moles/Vol] 104 mmol/L Invalid Interpretation Code 100-112 [employer] CO2 [Moles/Vol] 29 mmol/L Invalid Interpretation Code 23-30 [employer] Creatinine [Mass/Vol] 0.70 mg/dL Invalid Interpretation Code 0.5-1.5 [employer] GFR/1.73 sq M predicted among non-blacks MDRD (S/P/Bld) [Vol rate/Area] 83 mL/min/{1.73_m2} Invalid Interpretation Code [employer] Glucose [Mass/Vol] 186.0 mg/dL Invalid Interpretation Code 80-117 [employer] HbA1c (Bld) [Mass fraction] 6.80 % Invalid Interpretation Code 4.3-6.3 [employer] Potassium [Moles/Vol] 4.4 mmol/L Invalid Interpretation Code 3.5-5.3 [employer] Sodium [Moles/Vol] 142 mmol/L Invalid Interpretation Code 135-148 [employer] Urea nitrogen [Mass/Vol] 17.0 mg/dL Invalid Interpretation Code 7-25 [employer] Urea nitrogen/Creatinine [Mass ratio] 24 mg/mg Invalid Interpretation Code 6-20 [employer] Otheron 08-30-2017 Albumin (U) [Mass/Vol] < 12.00 Invalid Interpretation Code < 17.0 ug/mL [employer] Cholesterol in VLDL [Mass/Vol] 29.0 mg/dL Invalid Interpretation Code 0-39 [employer] Cholesterol.total/Ch olesterol in HDL [Mass ratio] 4 {ratio} Invalid Interpretation Code [employer] Glucose Test strip (U) [Mass/Vol] Negative negative [employer] pH (U) 7.5 [pH] Invalid Interpretation Code 4.5-7.8 [employer] 148 [employer] See Above Invalid Interpretation Code 0-0 [employer] 148.0 mg/dL Invalid Interpretation Code [employer] Thyroidon 08-30-2017 T4 [Mass/Vol] 7.42 ug/dL Invalid Interpretation Code 5.00-12.00 [employer] TSH Qn 0.53 m[IU]/L Invalid Interpretation Code 0.50-4.00 [employer] Urinalysison 08-30-2017 Creatinine (U) [Mass/Vol] 28.10 mg/dL Invalid Interpretation Code Not Estab. mg/dL [employer] Protein (U) [Mass/Vol] Negative negative [employer] [facility] 05-29-2017 Cholesterol [Mass/Vol] 290.0 mg/dL Invalid Interpretation Code 0-200 [employer] Cholesterol in HDL [Mass/Vol] 76.0 mg/dL Invalid Interpretation Code 50-100 [employer] Cholesterol in LDL [Mass/Vol] 179.0 mg/dL Invalid Interpretation Code 0-130 [employer] Triglyceride [Mass/Vol] 174.0 mg/dL Invalid Interpretation Code 30-150 [employer] Laboratory - Urinalysison Glucose Test strip (U) [Mass/Vol] Negative Invalid Interpretation Code negative [employer] Protein (U) [Mass/Vol] Negative Invalid Interpretation Code negative [employer] Metabolic Panelon 05-29-2017 Anion gap [Moles/Vol] 16 mmol/L Invalid Interpretation Code 10-20 [employer] Calcium [Mass/Vol] 9.0 mg/dL Invalid Interpretation Code 8.5-10.8 [employer] Chloride [Moles/Vol] 100 mmol/L Invalid Interpretation Code 100-112 [employer] CO2 [Moles/Vol] 30 mmol/L Invalid Interpretation Code 23-30 [employer] Creatinine [Mass/Vol] 0.90 mg/dL Invalid Interpretation Code 0.5-1.5 [employer] GFR/1.73 sq M predicted among non-blacks MDRD (S/P/Bld) [Vol rate/Area] 62 mL/min/{1.73_m2} Invalid Interpretation Code [employer] Glucose [Mass/Vol] 111.0 mg/dL Invalid Interpretation Code 80-117 [employer] HbA1c (Bld) [Mass fraction] 6.50 % Invalid Interpretation Code 4.3-6.3 [employer] Potassium [Moles/Vol] 4.8 mmol/L Invalid Interpretation Code 3.5-5.3 [employer] Sodium [Moles/Vol] 141 mmol/L Invalid Interpretation Code 135-148 [employer] Urea nitrogen [Mass/Vol] 16.0 mg/dL Invalid Interpretation Code 7-25 [employer] Urea nitrogen/Creatinine [Mass ratio] 18 mg/mg Invalid Interpretation Code 6-20 [employer] Otheron 05-29-2017 Albumin (U) [Mass/Vol] < 12.00 Invalid Interpretation Code < 17.0 ug/mL [employer] Cholesterol in VLDL [Mass/Vol] 35.0 mg/dL Invalid Interpretation Code 0-39 [employer] Cholesterol.total/Ch olesterol in HDL [Mass ratio] 4 {ratio} Invalid Interpretation Code [employer] Glucose Test strip (U) [Mass/Vol] Negative negative [employer] pH (U) 7.0 [pH] Invalid Interpretation Code 4.5-7.8 [employer] See Above Invalid Interpretation Code 0-0 [employer] 140 [employer] 140.0 mg/dL Invalid Interpretation Code [employer] Urinalysison 05-29-2017 Creatinine (U) [Mass/Vol] 45.60 mg/dL Invalid Interpretation Code Not Estab. mg/dL [employer] Protein (U) [Mass/Vol] Negative negative [employer] Laboratory - Urinalysison Glucose Test strip (U) [Mass/Vol] Negative Invalid Interpretation Code negative [employer] Protein (U) [Mass/Vol] Negative Invalid Interpretation Code negative [employer] Metabolic Panelon 03-01-2017 Anion gap [Moles/Vol] 14 mmol/L Invalid Interpretation Code 10-20 [employer] Calcium [Mass/Vol] 8.90 mg/dL Invalid Interpretation Code 8.5-10.8 [employer] Chloride [Moles/Vol] 105 mmol/L Invalid Interpretation Code 100-112 [employer] CO2 [Moles/Vol] 28 mmol/L Invalid Interpretation Code 23-30 [employer] Creatinine [Mass/Vol] 0.70 mg/dL Invalid Interpretation Code 0.5-1.5 [employer] GFR/1.73 sq M predicted among non-blacks MDRD (S/P/Bld) [Vol rate/Area] 83 mL/min/{1.73_m2} Invalid Interpretation Code [employer] Glucose [Mass/Vol] 149.0 mg/dL Invalid Interpretation Code 80-117 [employer] HbA1c (Bld) [Mass fraction] 6.50 % Invalid Interpretation Code 4.3-6.3 [employer] Potassium [Moles/Vol] 4.5 mmol/L Invalid Interpretation Code 3.5-5.3 [employer] Sodium [Moles/Vol] 142 mmol/L Invalid Interpretation Code 135-148 [employer] Urea nitrogen [Mass/Vol] 15.0 mg/dL Invalid Interpretation Code 7-25 [employer] Urea nitrogen/Creatinine [Mass ratio] 21 mg/mg Invalid Interpretation Code 6-20 [employer] Otheron 03-01-2017 Albumin (U) [Mass/Vol] < 12.00 Invalid Interpretation Code < 17.0 ug/mL [employer] Glucose Test strip (U) [Mass/Vol] Negative negative [employer] pH (U) 7.0 [pH] Invalid Interpretation Code 4.5-7.8 [employer] See Above Invalid Interpretation Code 0-0 [employer] 140 [employer] 140.0 mg/dL Invalid Interpretation Code [employer] Urinalysison 03-01-2017 Creatinine (U) [Mass/Vol] 111.80 mg/dL Invalid Interpretation Code Not Estab. mg/dL [employer] Protein (U) [Mass/Vol] Negative negative [employer] [facility] 11-16-2016 Cholesterol [Mass/Vol] 263.0 mg/dL Invalid Interpretation Code 0-200 [employer] Cholesterol in HDL [Mass/Vol] 80.0 mg/dL Invalid Interpretation Code 50-100 [employer] Cholesterol in LDL [Mass/Vol] 157.0 mg/dL Invalid Interpretation Code 0-130 [employer] Triglyceride [Mass/Vol] 129.0 mg/dL Invalid Interpretation Code 30-150 [employer] Laboratory - Urinalysison Glucose Test strip (U) [Mass/Vol] Negative Invalid Interpretation Code negative [employer] Protein (U) [Mass/Vol] Negative Invalid Interpretation Code negative [employer] Metabolic Panelon 11-16-2016 Glucose [Mass/Vol] 155.0 mg/dL Invalid Interpretation Code 80-117 [employer] HbA1c (Bld) [Mass fraction] 6.30 % Invalid Interpretation Code 4.3-6.3 [employer] Otheron 11-16-2016 Cholesterol in VLDL [Mass/Vol] 26.0 mg/dL Invalid Interpretation Code 0-39 [employer] Cholesterol.total/Ch olesterol in HDL [Mass ratio] 3 {ratio} Invalid Interpretation Code [employer] Glucose Test strip (U) [Mass/Vol] Negative negative [employer] pH (U) 7.0 [pH] Invalid Interpretation Code 4.5-7.8 [employer] See Above Invalid Interpretation Code 0-0 [employer] 134 [employer] 134.0 mg/dL Invalid Interpretation Code [employer] Urinalysison 11-16-2016 Protein (U) [Mass/Vol] Negative negative [employer] Laboratory - Urinalysison Glucose Test strip (U) [Mass/Vol] Negative Invalid Interpretation Code negative [employer] Protein (U) [Mass/Vol] Negative Invalid Interpretation Code negative [employer] Metabolic Panelon 08-17-2016 Anion gap [Moles/Vol] 17 mmol/L Invalid Interpretation Code 10-20 [employer] Calcium [Mass/Vol] 9.30 mg/dL Invalid Interpretation Code 8.5-10.8 [employer] Chloride [Moles/Vol] 101 mmol/L Invalid Interpretation Code 100-112 [employer] CO2 [Moles/Vol] 29 mmol/L Invalid Interpretation Code 23-30 [employer] Creatinine [Mass/Vol] 0.70 mg/dL Invalid Interpretation Code 0.5-1.5 [employer] GFR/1.73 sq M predicted among non-blacks MDRD (S/P/Bld) [Vol rate/Area] 83 mL/min/{1.73_m2} Invalid Interpretation Code [employer] Glucose [Mass/Vol] 276.0 mg/dL Invalid Interpretation Code 80-117 [employer] HbA1c (Bld) [Mass fraction] 6.60 % Invalid Interpretation Code 4.3-6.3 [employer] Potassium [Moles/Vol] 5.2 mmol/L Invalid Interpretation Code 3.5-5.3 [employer] Sodium [Moles/Vol] 142 mmol/L Invalid Interpretation Code 135-148 [employer] Urea nitrogen [Mass/Vol] 16.0 mg/dL Invalid Interpretation Code 7-25 [employer] Urea nitrogen/Creatinine [Mass ratio] 23 mg/mg Invalid Interpretation Code 6-20 [employer] Otheron 08-17-2016 Albumin (U) [Mass/Vol] < 12.00 Invalid Interpretation Code < 17.0 ug/mL [employer] Glucose Test strip (U) [Mass/Vol] Negative negative [employer] pH (U) 7.0 [pH] Invalid Interpretation Code 4.5-7.8 [employer] 143 [employer] 143.0 mg/dL Invalid Interpretation Code [employer] Thyroidon 08-17-2016 T4 [Mass/Vol] 7.43 ug/dL Invalid Interpretation Code 5.00-12.00 [employer] TSH Qn 0.31 m[IU]/L Invalid Interpretation Code 0.50-4.00 [employer] Urinalysison 08-17-2016 Creatinine (U) [Mass/Vol] 51.10 mg/dL Invalid Interpretation Code Not Estab. mg/dL [employer] Protein (U) [Mass/Vol] Negative negative [employer] [facility] 05-11-2016 Cholesterol [Mass/Vol] 262.0 mg/dL Invalid Interpretation Code 0-200 [employer] Cholesterol in HDL [Mass/Vol] 92.0 mg/dL Invalid Interpretation Code 50-100 [employer] Cholesterol in LDL [Mass/Vol] 153.0 mg/dL Invalid Interpretation Code 0-130 [employer] Triglyceride [Mass/Vol] 85.0 mg/dL Invalid Interpretation Code 30-150 [employer] Laboratory - Urinalysison Glucose Test strip (U) [Mass/Vol] Negative Invalid Interpretation Code negative [employer] Protein (U) [Mass/Vol] Negative Invalid Interpretation Code negative [employer] Metabolic Panelon 05-11-2016 ALT [Catalytic activity/Vol] 54.0 U/L Invalid Interpretation Code 0-50 [employer] Glucose [Mass/Vol] 199.0 mg/dL Invalid Interpretation Code 80-117 [employer] HbA1c (Bld) [Mass fraction] 6.20 % Invalid Interpretation Code 4.3-6.3 [employer] Otheron 05-11-2016 Albumin (U) [Mass/Vol] < 12.00 Invalid Interpretation Code < 4.0-17.0 [employer] Cholesterol in VLDL [Mass/Vol] 17.0 mg/dL Invalid Interpretation Code 0-39 [employer] Cholesterol.total/Ch olesterol in HDL [Mass ratio] 3 {ratio} Invalid Interpretation Code [employer] Glucose Test strip (U) [Mass/Vol] Negative negative [employer] pH (U) 7.0 [pH] Invalid Interpretation Code 4.5-7.8 [employer] 131 [employer] See Above Invalid Interpretation Code 0-0 [employer] 54.0 U/L 0-50 [employer] 131.0 mg/dL Invalid Interpretation Code [employer] Urinalysison 05-11-2016 Creatinine (U) [Mass/Vol] 29.0 mg/dL Invalid Interpretation Code Not Estab. mg/dL [employer] Protein (U) [Mass/Vol] Negative negative [employer] [facility] 02-10-2016 Cholesterol [Mass/Vol] 240.0 mg/dL Invalid Interpretation Code 0-200 [employer] Cholesterol in HDL [Mass/Vol] 68.0 mg/dL Invalid Interpretation Code 50-100 [employer] Cholesterol in LDL [Mass/Vol] 144.0 mg/dL Invalid Interpretation Code 0-130 [employer] Triglyceride [Mass/Vol] 138.0 mg/dL Invalid Interpretation Code 30-150 [employer] Laboratory - Chemistry and C hemistry - challengeon 02-10-2016 Bilirubin Ql (U) Negative Invalid Interpretation Code Negative [employer] Ketones Ql (U) Negative Invalid Interpretation Code Negative [employer] Urobilinogen (U) [Mass/Vol] normal Invalid Interpretation Code normal [employer] Laboratory - Urinalysison Nitrite Ql (U) Negative Invalid Interpretation Code Negative [employer] Protein Ql (U) Negative Invalid Interpretation Code Negative [employer] Metabolic Panelon 02-10-2016 Anion gap [Moles/Vol] 16 mmol/L Invalid Interpretation Code 10-20 [employer] Calcium [Mass/Vol] 8.80 mg/dL Invalid Interpretation Code 8.5-10.8 [employer] Chloride [Moles/Vol] 99 mmol/L Invalid Interpretation Code 100-112 [employer] CO2 [Moles/Vol] 25 mmol/L Invalid Interpretation Code 23-30 [employer] Creatinine [Mass/Vol] 0.60 mg/dL Invalid Interpretation Code 0.5-1.5 [employer] GFR/1.73 sq M predicted among non-blacks MDRD (S/P/Bld) [Vol rate/Area] 100 mL/min/{1.73_m2} Invalid Interpretation Code [employer] Glucose [Mass/Vol] 272.0 mg/dL Invalid Interpretation Code 80-117 [employer] HbA1c (Bld) [Mass fraction] 6.20 % Invalid Interpretation Code 4.3-6.3 [employer] Potassium [Moles/Vol] 4.4 mmol/L Invalid Interpretation Code 3.5-5.3 [employer] Sodium [Moles/Vol] 136 mmol/L Invalid Interpretation Code 135-148 [employer] Urea nitrogen [Mass/Vol] 15.0 mg/dL Invalid Interpretation Code 7-25 [employer] Urea nitrogen/Creatinine [Mass ratio] 25 mg/mg Invalid Interpretation Code 6-20 [employer] Otheron 02-10-2016 Albumin (U) [Mass/Vol] < 12.00 Invalid Interpretation Code < 4.0-17.0 [place] [employer] Bilirubin Ql (U) Negative Negative [facility] Cholesterol in VLDL [Mass/Vol] 28.0 mg/dL Invalid Interpretation Code 0-39 [employer] Cholesterol.total/Ch olesterol in HDL [Mass ratio] 4 {ratio} Invalid Interpretation Code [employer] Glucose Test strip (U) [Mass/Vol] 2+ Invalid Interpretation Code Negative [employer] Hemoglobin Ql (U) Trace Invalid Interpretation Code Negative [employer] Nitrite Ql (U) Negative Negative [employer] pH (U) 6.5 [pH] Invalid Interpretation Code 4.5-7.8 [employer] Protein Ql (U) Negative Negative [employer] Urobilinogen Test strip (U) [Mass/Vol] normal normal [facility] See Above Invalid Interpretation Code 0-0 [employer] 131 [employer] 131.0 mg/dL Invalid Interpretation Code [employer] Urinalysison 02-10-2016 Clarity (U) clear Invalid Interpretation Code Clear [employer] Color (U) yellow Invalid Interpretation Code yellow [employer] Creatinine (U) [Mass/Vol] 51.60 mg/dL Invalid Interpretation Code Not Estab. mg/dL [employer] Ketones Ql (U) Negative Negative [employer] Leukocyte esterase Test strip Ql (U) Trace Invalid Interpretation Code Negative [employer] Specific gravity (U) [Rel density] 1.010 Invalid Interpretation Code 1.003-1.029 [employer] [facility] 11-11-2015 Cholesterol [Mass/Vol] 255.0 mg/dL Invalid Interpretation Code 0-200 [employer] Cholesterol in HDL [Mass/Vol] 68.0 mg/dL Invalid Interpretation Code 50-100 [employer] Cholesterol in LDL [Mass/Vol] 151.0 mg/dL Invalid Interpretation Code 0-130 [employer] Triglyceride [Mass/Vol] 181.0 mg/dL Invalid Interpretation Code 30-150 [employer] Laboratory - Urinalysison Glucose Test strip (U) [Mass/Vol] Negative Invalid Interpretation Code negative [employer] Metabolic Panelon 11-11-2015 Anion gap [Moles/Vol] 16 mmol/L Invalid Interpretation Code 10-20 [employer] Calcium [Mass/Vol] 9.30 mg/dL Invalid Interpretation Code 8.5-10.8 [employer] Chloride [Moles/Vol] 101 mmol/L Invalid Interpretation Code 100-112 [employer] CO2 [Moles/Vol] 27 mmol/L Invalid Interpretation Code 23-30 [employer] Creatinine [Mass/Vol] 0.70 mg/dL Invalid Interpretation Code 0.5-1.5 [employer] GFR/1.73 sq M predicted among non-blacks MDRD (S/P/Bld) [Vol rate/Area] 83 mL/min/{1.73_m2} Invalid Interpretation Code [employer] Glucose [Mass/Vol] 112.0 mg/dL Invalid Interpretation Code 80-117 [employer] HbA1c (Bld) [Mass fraction] 6.40 % Invalid Interpretation Code 4.3-6.3 [employer] Potassium [Moles/Vol] 4.8 mmol/L Invalid Interpretation Code 3.5-5.3 [employer] Sodium [Moles/Vol] 139 mmol/L Invalid Interpretation Code 135-148 [employer] Urea nitrogen [Mass/Vol] 13.0 mg/dL Invalid Interpretation Code 7-25 [employer] Urea nitrogen/Creatinine [Mass ratio] 19 mg/mg Invalid Interpretation Code 6-20 [employer] Otheron 11-11-2015 Albumin (U) [Mass/Vol] 21.7 Invalid Interpretation Code 0.0-17.0 [employer] Cholesterol in VLDL [Mass/Vol] 36.0 mg/dL Invalid Interpretation Code 0-39 [employer] Cholesterol.total/Ch olesterol in HDL [Mass ratio] 4 {ratio} Invalid Interpretation Code [employer] Glucose Test strip (U) [Mass/Vol] Negative negative [employer] pH (U) 6.0 [pH] Invalid Interpretation Code 4.5-7.8 [employer] 137 [employer] See Above Invalid Interpretation Code 0-0 [employer] 137.0 mg/dL Invalid Interpretation Code [employer] Thyroidon 11-11-2015 T4 [Mass/Vol] 10.22 ug/dL Invalid Interpretation Code 5.00-12.00 [employer] TSH Qn 1.72 m[IU]/L Invalid Interpretation Code 0.50-4.00 [employer] Urinalysison 11-11-2015 Albumin/Creatinine DL <= 20 mg/L (U) [Mass ratio] 7.7 mg/g Invalid Interpretation Code 0.0-30.0 [employer] Creatinine (U) [Mass/Vol] 280.10 mg/dL Invalid Interpretation Code Not Estab. mg/dL [employer] Protein (U) [Mass/Vol] trace Invalid Interpretation Code negative [facility] 08-05-2015 Cholesterol [Mass/Vol] 285.0 mg/dL Invalid Interpretation Code 0-200 [employer] Cholesterol in HDL [Mass/Vol] 57.0 mg/dL Invalid Interpretation Code 50-100 [employer] Cholesterol in LDL [Mass/Vol] 195.0 mg/dL Invalid Interpretation Code 0-130 [employer] Triglyceride [Mass/Vol] 164.0 mg/dL Invalid Interpretation Code 30-150 [employer] Laboratory - Urinalysison Glucose Test strip (U) [Mass/Vol] Negative Invalid Interpretation Code negative [employer] Protein (U) [Mass/Vol] Negative Invalid Interpretation Code negative [employer] Metabolic Panelon 08-05-2015 Glucose [Mass/Vol] 166.0 mg/dL Invalid Interpretation Code 80-117 [employer] HbA1c (Bld) [Mass fraction] 6.0 % Invalid Interpretation Code 4.3-6.3 [employer] Otheron 08-05-2015 Albumin (U) [Mass/Vol] < 12.00 Invalid Interpretation Code < 4.0-17.0 [employer] Cholesterol in VLDL [Mass/Vol] 33.0 mg/dL Invalid Interpretation Code 0-39 [employer] Cholesterol.total/Ch olesterol in HDL [Mass ratio] 5 {ratio} Invalid Interpretation Code [employer] Glucose Test strip (U) [Mass/Vol] Negative negative [employer] pH (U) 6.5 [pH] Invalid Interpretation Code 4.5-7.8 [employer] See Above Invalid Interpretation Code 0-0 [employer] 126 [employer] 126.0 mg/dL Invalid Interpretation Code [employer] Urinalysison 08-05-2015 Creatinine (U) [Mass/Vol] 65.30 mg/dL Invalid Interpretation Code Not Estab. mg/dL [employer] Protein (U) [Mass/Vol] Negative negative [employer] Laboratory - Urinalysison Glucose Test strip (U) [Mass/Vol] Negative Invalid Interpretation Code negative [employer] Protein (U) [Mass/Vol] Negative Invalid Interpretation Code negative [employer] Metabolic Panelon 04-22-2015 Anion gap [Moles/Vol] 18 mmol/L Invalid Interpretation Code 10-20 [employer] Calcium [Mass/Vol] 9.20 mg/dL Invalid Interpretation Code 8.5-10.8 [employer] Chloride [Moles/Vol] 97 mmol/L Invalid Interpretation Code 100-112 [employer] CO2 [Moles/Vol] 26 mmol/L Invalid Interpretation Code 23-30 [employer] Creatinine [Mass/Vol] 0.70 mg/dL Invalid Interpretation Code 0.5-1.5 [employer] GFR/1.73 sq M predicted among non-blacks MDRD (S/P/Bld) [Vol rate/Area] 84 mL/min/{1.73_m2} Invalid Interpretation Code [employer] Glucose [Mass/Vol] 151.0 mg/dL Invalid Interpretation Code 80-117 [employer] HbA1c (Bld) [Mass fraction] 7.10 % Invalid Interpretation Code 4.3-6.3 [employer] Potassium [Moles/Vol] 4.4 mmol/L Invalid Interpretation Code 3.5-5.3 [employer] Sodium [Moles/Vol] 137 mmol/L Invalid Interpretation Code 135-148 [employer] Urea nitrogen [Mass/Vol] 14.0 mg/dL Invalid Interpretation Code 7-25 [employer] Urea nitrogen/Creatinine [Mass ratio] 20 mg/mg Invalid Interpretation Code 6-20 [employer] Otheron 04-22-2015 Glucose Test strip (U) [Mass/Vol] Negative negative [employer] pH (U) 6.0 [pH] Invalid Interpretation Code 4.5-7.8 [employer] See Above Invalid Interpretation Code 0-0 [employer] 157 [facility] 157.0 mg/dL Invalid Interpretation Code [employer] Thyroidon 04-22-2015 T4 [Mass/Vol] 9.22 ug/dL Invalid Interpretation Code 5.00-12.00 [employer] TSH Qn 3.12 m[IU]/L Invalid Interpretation Code 0.50-4.00 [employer] Urinalysison 04-22-2015 Protein (U) [Mass/Vol] Negative negative [employer] [facility] 01-20-2015 Cholesterol [Mass/Vol] 270.0 mg/dL Invalid Interpretation Code 0-200 [employer] Cholesterol in HDL [Mass/Vol] 53.0 mg/dL Invalid Interpretation Code 50-100 [employer] Cholesterol in LDL [Mass/Vol] 181.0 mg/dL Invalid Interpretation Code 0-130 [employer] Triglyceride [Mass/Vol] 182.0 mg/dL Invalid Interpretation Code 30-150 [employer] Laboratory - Urinalysison Glucose Test strip (U) [Mass/Vol] Negative Invalid Interpretation Code negative [employer] Protein (U) [Mass/Vol] Negative Invalid Interpretation Code negative [employer] Metabolic Panelon 01-20-2015 ALT [Catalytic activity/Vol] 21.0 U/L Invalid Interpretation Code 0-50 [employer] Anion gap [Moles/Vol] 16 mmol/L Invalid Interpretation Code 10-20 [employer] Calcium [Mass/Vol] 9.10 mg/dL Invalid Interpretation Code 8.5-10.8 [employer] Chloride [Moles/Vol] 102 mmol/L Invalid Interpretation Code 100-112 [employer] CO2 [Moles/Vol] 26 mmol/L Invalid Interpretation Code 23-30 [employer] Creatinine [Mass/Vol] 1.0 mg/dL Invalid Interpretation Code 0.5-1.5 [employer] GFR/1.73 sq M predicted among non-blacks MDRD (S/P/Bld) [Vol rate/Area] 55 mL/min/{1.73_m2} Invalid Interpretation Code [employer] Glucose [Mass/Vol] 152.0 mg/dL Invalid Interpretation Code 80-117 [employer] HbA1c (Bld) [Mass fraction] 7.20 % Invalid Interpretation Code 4.3-6.3 [employer] Potassium [Moles/Vol] 5.2 mmol/L Invalid Interpretation Code 3.5-5.3 [employer] Sodium [Moles/Vol] 139 mmol/L Invalid Interpretation Code 135-148 [employer] Urea nitrogen [Mass/Vol] 18.0 mg/dL Invalid Interpretation Code 7-25 [employer] Urea nitrogen/Creatinine [Mass ratio] 18 mg/mg Invalid Interpretation Code 6-20 [employer] Otheron 01-20-2015 Albumin (U) [Mass/Vol] < 12.00 Invalid Interpretation Code < 4.0-17.0 [employer] Cholesterol in VLDL [Mass/Vol] 36.0 mg/dL Invalid Interpretation Code 0-39 [employer] Cholesterol.total/Ch olesterol in HDL [Mass ratio] 5 {ratio} Invalid Interpretation Code [employer] Glucose Test strip (U) [Mass/Vol] Negative negative [employer] pH (U) 7.0 [pH] Invalid Interpretation Code 4.5-7.8 [employer] See Above Invalid Interpretation Code 0-0 [employer] 160.0 mg/dL Invalid Interpretation Code [employer] 21.0 U/L 0-50 [employer] Urinalysison 01-20-2015 Creatinine (U) [Mass/Vol] 57.10 mg/dL Invalid Interpretation Code Not Estab. mg/dL [employer] Protein (U) [Mass/Vol] Negative negative [employer] [facility] 09-22-2014 Cholesterol [Mass/Vol] 259.0 mg/dL Invalid Interpretation Code 0-200 [employer] Cholesterol in HDL [Mass/Vol] 73.0 mg/dL Invalid Interpretation Code 50-100 [employer] Cholesterol in LDL [Mass/Vol] 164.0 mg/dL Invalid Interpretation Code 0-130 [employer] Triglyceride [Mass/Vol] 111.0 mg/dL Invalid Interpretation Code 30-150 [employer] Laboratory - Chemistry and C hemistry - challengeon 09-22-2014 ALT [Catalytic activity/Vol] U/L Invalid Interpretation Code 0-50 [employer] Laboratory - Urinalysison Glucose Test strip (U) [Mass/Vol] Negative Invalid Interpretation Code negative [facility] Protein (U) [Mass/Vol] Negative Invalid Interpretation Code negative [facility] Metabolic Panelon 09-22-2014 ALT [Catalytic activity/Vol] U/L 0-50 [employer] Anion gap [Moles/Vol] 15 mmol/L Invalid Interpretation Code 10-20 [employer] Calcium [Mass/Vol] 9.10 mg/dL Invalid Interpretation Code 8.5-10.8 [employer] Chloride [Moles/Vol] 107 mmol/L Invalid Interpretation Code 100-112 [employer] CO2 [Moles/Vol] 28 mmol/L Invalid Interpretation Code 23-30 [employer] Creatinine [Mass/Vol] 0.70 mg/dL Invalid Interpretation Code 0.5-1.5 [employer] GFR/1.73 sq M predicted among non-blacks MDRD (S/P/Bld) [Vol rate/Area] 84 mL/min/{1.73_m2} Invalid Interpretation Code [employer] Glucose [Mass/Vol] 132.0 mg/dL Invalid Interpretation Code 80-117 [employer] HbA1c (Bld) [Mass fraction] 6.50 % Invalid Interpretation Code 4.3-6.3 [employer] Potassium [Moles/Vol] 4.6 mmol/L Invalid Interpretation Code 3.5-5.3 [employer] Sodium [Moles/Vol] 145 mmol/L Invalid Interpretation Code 135-148 [employer] Urea nitrogen [Mass/Vol] 22.0 mg/dL Invalid Interpretation Code 7-25 [employer] Urea nitrogen/Creatinine [Mass ratio] 31 mg/mg Invalid Interpretation Code 6-20 [employer] Otheron 09-22-2014 Albumin (U) [Mass/Vol] < 12.00 Invalid Interpretation Code < 4.0-17.0 [employer] Cholesterol in VLDL [Mass/Vol] 22.0 mg/dL Invalid Interpretation Code 0-39 [employer] Cholesterol.total/Ch olesterol in HDL [Mass ratio] 4 {ratio} Invalid Interpretation Code [employer] Glucose Test strip (U) [Mass/Vol] Negative negative [employer] pH (U) 6.0 [pH] Invalid Interpretation Code 4.5-7.8 [employer] See Above Invalid Interpretation Code 0-0 [employer] 140.0 mg/dL Invalid Interpretation Code [employer] < 5.0 0-50 [employer] Thyroidon 09-22-2014 T4 [Mass/Vol] 8.14 ug/dL Invalid Interpretation Code 5.00-12.00 [employer] TSH Qn 0.94 m[IU]/L Invalid Interpretation Code 0.50-4.00 [employer] Urinalysison 09-22-2014 Creatinine (U) [Mass/Vol] 185.60 mg/dL Invalid Interpretation Code Not Estab. mg dL [employer] Protein (U) [Mass/Vol] Negative negative [employer] [facility] 06-16-2014 Cholesterol [Mass/Vol] 261.0 mg/dL Invalid Interpretation Code 0-200 [employer] Cholesterol in HDL [Mass/Vol] 67.0 mg/dL Invalid Interpretation Code 50-100 [employer] Cholesterol in LDL [Mass/Vol] 170.0 mg/dL Invalid Interpretation Code 0-130 [employer] Triglyceride [Mass/Vol] 121.0 mg/dL Invalid Interpretation Code 30-150 [employer] Laboratory - Chemistry and C hemistry - challengeon 06-16-2014 Bilirubin Ql (U) Negative Invalid Interpretation Code Negative [employer] Ketones Ql (U) Negative Invalid Interpretation Code Negative [employer] Urobilinogen (U) [Mass/Vol] normal Invalid Interpretation Code normal [facility] Laboratory - Urinalysison Leukocyte esterase Test strip Ql (U) Negative Invalid Interpretation Code Negative [employer] Nitrite Ql (U) Negative Invalid Interpretation Code Negative [employer] Protein Ql (U) Negative Invalid Interpretation Code Negative [employer] Metabolic Panelon 06-16-2014 Anion gap [Moles/Vol] 13 mmol/L Invalid Interpretation Code 10-20 [employer] Calcium [Mass/Vol] 9.30 mg/dL Invalid Interpretation Code 8.5-10.8 [employer] Chloride [Moles/Vol] 105 mmol/L Invalid Interpretation Code 100-112 [employer] CO2 [Moles/Vol] 29 mmol/L Invalid Interpretation Code 23-30 [employer] Creatinine [Mass/Vol] 0.70 mg/dL Invalid Interpretation Code 0.5-1.5 [facility] GFR/1.73 sq M predicted among non-blacks MDRD (S/P/Bld) [Vol rate/Area] 84 mL/min/{1.73_m2} Invalid Interpretation Code [facility] Glucose [Mass/Vol] 58.0 mg/dL Invalid Interpretation Code 80-117 [facility] HbA1c (Bld) [Mass fraction] 7.0 % Invalid Interpretation Code 4.3-6.3 [facility] Potassium [Moles/Vol] 4.2 mmol/L Invalid Interpretation Code 3.5-5.3 [facility] Sodium [Moles/Vol] 143 mmol/L Invalid Interpretation Code 135-148 [facility] Urea nitrogen [Mass/Vol] 14.0 mg/dL Invalid Interpretation Code 7-25 [facility] Urea nitrogen/Creatinine [Mass ratio] 20 mg/mg Invalid Interpretation Code 6-20 [facility] Otheron 06-16-2014 Albumin (U) [Mass/Vol] < 12.00 Invalid Interpretation Code < 4.0-17.0 [facility] [employer] Bilirubin Ql (U) Negative Negative [facility] Cholesterol in VLDL [Mass/Vol] 24.0 mg/dL Invalid Interpretation Code 0-39 [facility] [employer] Cholesterol.total/Ch olesterol in HDL [Mass ratio] 4 {ratio} Invalid Interpretation Code [facility] [employer] Glucose Test strip (U) [Mass/Vol] 4+ Invalid Interpretation Code Negative [employer] Hemoglobin Ql (U) Trace Invalid Interpretation Code Negative [employer] Nitrite Ql (U) Negative Negative [employer] pH (U) 7 [pH] Invalid Interpretation Code 4.5-7.8 [employer] Protein Ql (U) Negative Negative [employer] Urobilinogen Test strip (U) [Mass/Vol] normal normal [employer] See Above Invalid Interpretation Code 0-0 [employer] 154.0 mg/dL Invalid Interpretation Code [employer] Thyroidon 06-16-2014 T4 [Mass/Vol] 9.22 ug/dL Invalid Interpretation Code 5.00-12.00 [employer] TSH Qn 0.76 m[IU]/L Invalid Interpretation Code 0.50-4.00 [employer] Urinalysison 06-16-2014 Clarity (U) clear Invalid Interpretation Code Clear [employer] Color (U) yellow Invalid Interpretation Code yellow [employer] Creatinine (U) [Mass/Vol] 49.80 mg/dL Invalid Interpretation Code Not Estab. mg dL [employer] Ketones Ql (U) Negative Negative [employer] Leukocyte esterase Test strip Ql (U) Negative Negative [employer] Specific gravity (U) [Rel density] 1.010 Invalid Interpretation Code 1.003-1.029 [employer] [facility] 03-17-2014 Cholesterol [Mass/Vol] 253.0 mg/dL Invalid Interpretation Code 0-200 [employer] Cholesterol in HDL [Mass/Vol] 68.0 mg/dL Invalid Interpretation Code 50-100 [employer] Cholesterol in LDL [Mass/Vol] 168.0 mg/dL Invalid Interpretation Code 0-130 [employer] Triglyceride [Mass/Vol] 84.0 mg/dL Invalid Interpretation Code 30-150 [employer] Laboratory - Urinalysison Glucose Test strip (U) [Mass/Vol] Negative Invalid Interpretation Code negative [employer] Protein (U) [Mass/Vol] Negative Invalid Interpretation Code negative [facility] Metabolic Panelon 03-17-2014 Anion gap [Moles/Vol] 8 mmol/L Invalid Interpretation Code 10-20 [employer] Calcium [Mass/Vol] 9.10 mg/dL Invalid Interpretation Code 8.5-10.8 [employer] Chloride [Moles/Vol] 103 mmol/L Invalid Interpretation Code 100-112 [employer] CO2 [Moles/Vol] 32 mmol/L Invalid Interpretation Code 23-30 [employer] Creatinine [Mass/Vol] 0.70 mg/dL Invalid Interpretation Code 0.5-1.5 [employer] GFR/1.73 sq M predicted among non-blacks MDRD (S/P/Bld) [Vol rate/Area] 84 mL/min/{1.73_m2} Invalid Interpretation Code [employer] Glucose [Mass/Vol] 161.0 mg/dL Invalid Interpretation Code 80-117 [employer] HbA1c (Bld) [Mass fraction] 6.20 % Invalid Interpretation Code 4.3-6.3 [facility] Potassium [Moles/Vol] 4.4 mmol/L Invalid Interpretation Code 3.5-5.3 [employer] Sodium [Moles/Vol] 139 mmol/L Invalid Interpretation Code 135-148 [employer] Urea nitrogen [Mass/Vol] 21.0 mg/dL Invalid Interpretation Code 7-25 [facility] Urea nitrogen/Creatinine [Mass ratio] 30 mg/mg Invalid Interpretation Code 6-20 [facility] Otheron 03-17-2014 Albumin (U) [Mass/Vol] < 12.00 Invalid Interpretation Code < 4.0-17.0 [employer] Cholesterol in VLDL [Mass/Vol] 17.0 mg/dL Invalid Interpretation Code 0-39 [employer] Cholesterol.total/Ch olesterol in HDL [Mass ratio] 4 {ratio} Invalid Interpretation Code [employer] Glucose Test strip (U) [Mass/Vol] Negative negative [facility] pH (U) 7.0 [pH] Invalid Interpretation Code 4.5-7.8 [facility] 131.0 mg/dL Invalid Interpretation Code [employer] See Above Invalid Interpretation Code 0-0 [employer] Urinalysison 03-17-2014 Creatinine (U) [Mass/Vol] 70.80 mg/dL Invalid Interpretation Code Not Estab. mg dL [employer] Protein (U) [Mass/Vol] Negative negative [employer] [facility] 12-16-2013 Cholesterol [Mass/Vol] 241.0 mg/dL Invalid Interpretation Code 0-200 [employer] Cholesterol in HDL [Mass/Vol] 57.0 mg/dL Invalid Interpretation Code 50-100 [employer] Cholesterol in LDL [Mass/Vol] 162.0 mg/dL Invalid Interpretation Code 0-130 [employer] Triglyceride [Mass/Vol] 108.0 mg/dL Invalid Interpretation Code 30-150 [employer] Laboratory - Urinalysison Glucose Test strip (U) [Mass/Vol] Negative Invalid Interpretation Code negative [employer] Protein (U) [Mass/Vol] Negative Invalid Interpretation Code negative [facility] Metabolic Panelon 12-16-2013 ALT [Catalytic activity/Vol] 15.0 U/L Invalid Interpretation Code 0-50 [employer] Glucose [Mass/Vol] 94.0 mg/dL Invalid Interpretation Code 80-117 [employer] HbA1c (Bld) [Mass fraction] 6.50 % Invalid Interpretation Code 4.3-6.3 [employer] Otheron 12-16-2013 Albumin (U) [Mass/Vol] < 12.00 Invalid Interpretation Code < 4.0-17.0 [employer] Cholesterol in VLDL [Mass/Vol] 22.0 mg/dL Invalid Interpretation Code 0-39 [employer] Cholesterol.total/Ch olesterol in HDL [Mass ratio] 4 {ratio} Invalid Interpretation Code [employer] Glucose Test strip (U) [Mass/Vol] Negative negative [employer] pH (U) 6.0 [pH] Invalid Interpretation Code 4.5-7.8 [employer] 140.0 mg/dL Invalid Interpretation Code [employer] See Above Invalid Interpretation Code 0-0 [employer] 15.0 U/L 0-50 [employer] Thyroidon 12-16-2013 T4 [Mass/Vol] 7.56 ug/dL Invalid Interpretation Code 5.00-12.00 [employer] TSH Qn 0.49 m[IU]/L Invalid Interpretation Code 0.50-4.00 [employer] Urinalysison 12-16-2013 Creatinine (U) [Mass/Vol] 162.70 mg/dL Invalid Interpretation Code Not Estab. mg dL [employer] Protein (U) [Mass/Vol] Negative negative [employer] Laboratory - Urinalysison Glucose Test strip (U) [Mass/Vol] Negative Invalid Interpretation Code negative [employer] Protein (U) [Mass/Vol] Negative Invalid Interpretation Code negative [employer] Metabolic Panelon 12-02-2013 Glucose [Mass/Vol] 108.0 mg/dL Invalid Interpretation Code 80-117 [employer] Otheron 12-02-2013 C peptide [Mass/Vol] <0.0 Invalid Interpretation Code 1.1-4.4 [employer] Glucose Test strip (U) [Mass/Vol] Negative negative [employer] Glutamate decarboxylase 65 Ab Qn (S) 96.7 Invalid Interpretation Code 0.0-1.5 [employer] pH (U) 7.0 [pH] Invalid Interpretation Code 4.5-7.8 [employer] See Above Invalid Interpretation Code 0-0 [employer] Urinalysison 12-02-2013 Protein (U) [Mass/Vol] Negative negative [employer] [facility] 03-21-2013 Cholesterol [Mass/Vol] 201.0 mg/dL Invalid Interpretation Code 0-200 [employer] Cholesterol in HDL [Mass/Vol] 74.0 mg/dL Invalid Interpretation Code 50-100 [employer] Cholesterol in LDL [Mass/Vol] 108.0 mg/dL Invalid Interpretation Code 0-130 [employer] Triglyceride [Mass/Vol] 93.0 mg/dL Invalid Interpretation Code 30-150 [employer] Laboratory - Urinalysison Glucose Test strip (U) [Mass/Vol] Negative Invalid Interpretation Code negative [employer] Protein (U) [Mass/Vol] Negative Invalid Interpretation Code negative [employer] Metabolic Panelon 03-21-2013 ALT [Catalytic activity/Vol] 28.0 U/L Invalid Interpretation Code 0-50 [employer] Glucose [Mass/Vol] 134.0 mg/dL Invalid Interpretation Code 80-117 [employer] HbA1c (Bld) [Mass fraction] 6.20 % Invalid Interpretation Code 4.3-6.3 [employer] Otheron 03-21-2013 Albumin (U) [Mass/Vol] < 12.00 Invalid Interpretation Code < 4.0-17.0 [employer] Cholesterol in VLDL [Mass/Vol] 19.0 mg/dL Invalid Interpretation Code 0-39 [employer] Cholesterol.total/Ch olesterol in HDL [Mass ratio] 3 {ratio} Invalid Interpretation Code [employer] Glucose Test strip (U) [Mass/Vol] Negative negative [employer] pH (U) 7.5 [pH] Invalid Interpretation Code 4.5-7.8 [employer] See Above Invalid Interpretation Code 0-0 [employer] 131.0 mg/dL Invalid Interpretation Code [employer] 28.0 U/L 0-50 [employer] Thyroidon 03-21-2013 T4 [Mass/Vol] 9.50 ug/dL Invalid Interpretation Code 5.00-12.00 [employer] TSH Qn 0.87 m[IU]/L Invalid Interpretation Code 0.50-4.00 [employer] Urinalysison 03-21-2013 Creatinine (U) [Mass/Vol] 74.0 mg/dL Invalid Interpretation Code Not Estab. mg dL [employer] Protein (U) [Mass/Vol] Negative negative [employer] Vital Signs Date Time Vital Sign Value Performing Clinician Facility 08-04-2024 10:15-0500 Body height 151.13 cm [facility] 08-04-2024 10:15-0500 Body mass index (BMI) [Ratio] 31.97 kg/m2 [facility] 08-04-2024 10:15-0500 Body surface area Derived from formula 1.75 m2 [facility] 08-04-2024 10:15-0500 Body weight 73.03 kg [facility] 08-04-2024 10:15-0500 Diastolic blood pressure 72 mm[Hg] [facility] 08-04-2024 10:15-0500 Heart rate 72 /min [facility] 08-04-2024 10:15-0500 Systolic blood pressure 130 mm[Hg] [facility] 07-28-2024 13:01-0500 Body height 149.86 cm [facility] 07-28-2024 13:01-0500 Body mass index (BMI) [Ratio] 32.5 kg/m2 [facility] 07-28-2024 13:01-0500 Body temperature 98.1 [degF] [facility] 07-28-2024 13:01-0500 Body weight 73.19 kg [facility] 07-28-2024 13:01-0500 Diastolic blood pressure 82 mm[Hg] [facility] 07-28-2024 13:01-0500 Heart rate 74 /min [facility] 07-28-2024 13:01-0500 SaO2% (BldA) [Mass fraction] 97 % [facility] 07-28-2024 13:01-0500 Systolic blood pressure 144 mm[Hg] [facility] 05-04-2024 10:56-0400 Body height 151.13 cm [facility] 05-04-2024 10:56-0400 Body mass index (BMI) [Ratio] 31.97 kg/m2 [facility] 05-04-2024 10:56-0400 Body surface area Derived from formula 1.75 m2 [employer] 05-04-2024 10:56-0400 Body weight 73.03 kg [employer] 05-04-2024 10:56-0400 Diastolic blood pressure 80 mm[Hg] [employer] 05-04-2024 10:56-0400 Heart rate 76 /min [employer] 05-04-2024 10:56-0400 Systolic blood pressure 160 mm[Hg] [employer] 01-31-2024 11:52-0400 Body height 151.13 cm Patrice Envivio 01-31-2024 11:52-0400 Body mass index (BMI) [Ratio] 31.97 kg/m2 Patrice Envivio 01-31-2024 11:52-0400 Body surface area Derived from formula 1.75 m2 [facility] 01-31-2024 11:52-0400 Body weight 73.03 kg [facility] 01-31-2024 11:52-0400 Diastolic blood pressure 70 mm[Hg] [facility] 01-31-2024 11:52-0400 Heart rate 72 /min [facility] 01-31-2024 11:52-0400 Systolic blood pressure 168 mm[Hg] [facility] 12-10-2023 13:30-0400 Body height 149.86 cm [facility] 12-10-2023 13:30-0400 Body mass index (BMI) [Ratio] 32.7 kg/m2 [facility] 12-10-2023 13:30-0400 Body weight 73.48 kg [facility] 12-10-2023 13:30-0400 Diastolic blood pressure 78 mm[Hg] [facility] 12-10-2023 13:30-0400 Heart rate 67 /min [facility] 12-10-2023 13:30-0400 SaO2% (BldA) [Mass fraction] 98 % [facility] 12-10-2023 13:30-0400 Systolic blood pressure 124 mm[Hg] [facility] 11-01-2023 10:55-0400 Body height 151.13 cm [facility] 11-01-2023 10:55-0400 Body mass index (BMI) [Ratio] 31.77 kg/m2 [facility] 11-01-2023 10:55-0400 Body surface area Derived from formula 1.75 m2 [facility] 11-01-2023 10:55-0400 Body weight 72.58 kg [facility] 11-01-2023 10:55-0400 Diastolic blood pressure 82 mm[Hg] [facility] 11-01-2023 10:55-0400 Heart rate 76 /min [facility] 11-01-2023 10:55-0400 Systolic blood pressure 164 mm[Hg] [facility] 08-02-2023 10:31-0500 Body height 153.67 cm [facility] 08-02-2023 10:31-0500 Body mass index (BMI) [Ratio] 30.35 kg/m2 [facility] 08-02-2023 10:31-0500 Body surface area Derived from formula 1.75 m2 Patrice Envivio 08-02-2023 10:31-0500 Body weight 71.67 kg Patrice ChoudharyGeckoGo 08-02-2023 10:31-0500 Diastolic blood pressure 80 mm[Hg] Patrice ChoudharyGeckoGo 08-02-2023 10:31-0500 Heart rate 74 /min Patrice Envivio 08-02-2023 10:31-0500 Systolic blood pressure 142 mm[Hg] Patrice Envivio 06-26-2023 13:30-0500 Body height 149.86 cm DO Paulette Voss Work Phone: [facility] 06-26-2023 13:30-0500 Body weight 71.39 kg DO Paulette Voss Work Phone: [facility] 06-26-2023 13:30-0500 Diastolic blood pressure 72 mm[Hg] DO Paulette Voss Work Phone: [facility] 06-26-2023 13:30-0500 Systolic blood pressure 132 mm[Hg] DO Paulette Voss Work Phone: [facility] 06-13-2023 13:00-0500 Body height 149.86 cm Gloria Mooney Other [facility] 06-13-2023 13:00-0500 Body mass index (BMI) [Ratio] 31.71 kg/m2 Gloria Mooney Other [employer] Other 06-13-2023 13:00-0500 Body weight 71.22 kg Gloria Mooney Other [employer] Other 06-13-2023 13:00-0500 Body weight 71.21 kg DO Paulette Voss Work Phone: [facility] 06-13-2023 13:00-0500 Diastolic blood pressure 70 mm[Hg] Gloria Mooney Other [facility] 06-13-2023 13:00-0500 SaO2% (BldA) [Mass fraction] 97 % Gloria Mooney Other [facility] [employer] Other 06-13-2023 13:00-0500 Systolic blood pressure 140 mm[Hg] Gloria Mooney Other [facility] 05-02-2023 10:16-0400 Body weight 70.76 kg [facility] 05-02-2023 10:16-0400 Diastolic blood pressure 70 mm[Hg] [facility] 05-02-2023 10:16-0400 Heart rate 68 /min [facility] 05-02-2023 10:16-0400 Systolic blood pressure 110 mm[Hg] [facility] 01-30-2023 09:43-0400 Body weight 71.67 kg [facility] 01-30-2023 09:43-0400 Diastolic blood pressure 70 mm[Hg] [facility] 01-30-2023 09:43-0400 Heart rate 72 /min [facility] 01-30-2023 09:43-0400 Systolic blood pressure 122 mm[Hg] [facility] 10-31-2022 10:21-0400 Body height 151.64 cm Bebeto Victorand SantosViverae 10-31-2022 10:21-0400 Body mass index (BMI) [Ratio] 30.58 kg/m2 Bebeto Ginger SantosViverae 10-31-2022 10:21-0400 Body surface area Derived from formula 1.72 m2 [employer] Ginger SantosViverae 10-31-2022 10:21-0400 Body weight 70.31 kg Bebeto Ginger SantosViverae 10-31-2022 10:21-0400 Body weight 0.1 {percentile} Bebeto Ginger SantosViverae 10-31-2022 10:21-0400 Diastolic blood pressure 78 mm[Hg] Beb[facility] Ginger SantosViverae 10-31-2022 10:21-0400 Heart rate 72 /min Bebeto Ginger SantosViverae 10-31-2022 10:21-0400 Systolic blood pressure 156 mm[Hg] [facility] Ginger SantosViverae 09-11-2022 17:48-0500 Body weight 70.76 kg Bebeto Ginger SantosViverae 09-11-2022 17:48-0500 Diastolic blood pressure 72 mm[Hg] [facility]eb[facility] [employer] 09-11-2022 17:48-0500 Heart rate 68 /min [facility] [employer] 09-11-2022 17:48-0500 Systolic blood pressure 110 mm[Hg] [employer] 08-02-2022 10:15-0500 Body height 151.64 cm Patrice ChoudharyGeckoGo 08-02-2022 10:15-0500 Body mass index (BMI) [Ratio] 29.79 kg/m2 Patrice Envivio 08-02-2022 10:15-0500 Body surface area Derived from formula 1.7 m2 Patrice Envivio 08-02-2022 10:15-0500 Body weight 68.49 kg Patrice Envivio 08-02-2022 10:15-0500 Body weight 0.1 {percentile} Patrice Envivio 08-02-2022 10:15-0500 Diastolic blood pressure 70 mm[Hg] Patrice Envivio 08-02-2022 10:15-0500 Heart rate 68 /min Patrice Envivio 08-02-2022 10:15-0500 Systolic blood pressure 120 mm[Hg] Patrice Envivio 07-10-2022 12:30-0500 Diastolic blood pressure 67 mm[Hg] Eyal Sanchez MD Work Phone: [employer] 07-10-2022 12:30-0500 Heart rate 72 /min Eyal Sanchez MD Work Phone: [employer] 07-10-2022 12:30-0500 Respiratory rate 18 /min Eyal Sanchez MD Work Phone: [employer] 07-10-2022 12:30-0500 SaO2% (BldA) [Mass fraction] 95 % Eyal Sanchez MD Work Phone: [employer] 07-10-2022 12:30-0500 Systolic blood pressure 140 mm[Hg] Eyal Sanchez MD Work Phone: [employer] 07-10-2022 12:05-0500 Body temperature 97.2 [degF] Eyal Sanchez MD Work Phone: [employer] 07-05-2022 11:08-0500 Body height 149.9 cm Eyal Sanchez MD Work Phone: [facility] [employer] 07-05-2022 11:08-0500 Body mass index (BMI) [Ratio] 29.08 kg/m2 Eyal Sanchez MD Work Phone: [employer] 07-05-2022 11:08-0500 Body weight 65.32 kg Eyal Sanchez MD Work Phone: [employer] 05-02-2022 10:33-0400 Body weight 68.49 kg [facility] 05-02-2022 10:33-0400 Diastolic blood pressure 78 mm[Hg] [facility] 05-02-2022 10:33-0400 Heart rate 74 /min Pat[facility]xt 05-02-2022 10:33-0400 Systolic blood pressure 142 mm[Hg] [facility] 01-30-2022 10:46-0400 Body height 149.86 cm [facility] 01-30-2022 10:46-0400 Body mass index (BMI) [Ratio] 30.3 kg/m2 [facility] 07-19-2022 10:46-0400 Body surface area Derived from formula 1.68 m2 Patrice Envivio 01-30-2022 10:46-0400 Body weight 68.04 kg Patrice ChoudharyGeckoGo 01-30-2022 10:46-0400 Diastolic blood pressure 74 mm[Hg] Patrice Envivio 01-30-2022 10:46-0400 Heart rate 66 /min Patrice Envivio 01-30-2022 10:46-0400 Systolic blood pressure 148 mm[Hg] Patrice Envivio 10-31-2021 10:19-0400 Body weight 67.59 kg Nupur Loom 10-31-2021 10:19-0400 Diastolic blood pressure 70 mm[Hg] Nupur [facility]oom 10-31-2021 10:19-0400 Heart rate 74 /min Nupur [employer] 10-31-2021 10:19-0400 Systolic blood pressure 140 mm[Hg] [facility] 08-02-2021 10:12-0500 Body height 153.67 cm [facility] 08-02-2021 10:12-0500 Body mass index (BMI) [Ratio] 28.62 kg/m2 [facility] 08-02-2021 10:12-0500 Body surface area Derived from formula 1.7 m2 [facility] 08-02-2021 10:12-0500 Body weight 67.59 kg [facility] 08-02-2021 10:12-0500 Diastolic blood pressure 70 mm[Hg] NupurVivoncViverae 08-02-2021 10:12-0500 Heart rate 84 /min [facility] 08-02-2021 10:12-0500 Systolic blood pressure 152 mm[Hg] [employer] 05-02-2021 11:21-0400 Body height 154.31 cm NupurVivoncViverae 05-02-2021 11:21-0400 Body mass index (BMI) [Ratio] 28.67 kg/m2 [facility] 05-02-2021 11:21-0400 Body surface area Derived from formula 1.71 m2 [employer] 05-02-2021 11:21-0400 Body weight 68.27 kg [facility] 05-02-2021 11:21-0400 Diastolic blood pressure 60 mm[Hg] [employer] 05-02-2021 11:21-0400 Heart rate 78 /min [facility] 05-02-2021 11:21-0400 Systolic blood pressure 134 mm[Hg] [employer] 02-02-2021 12:34-0400 Body height 154.31 cm Patrice Choudharyeder SantosViverae 02-02-2021 12:34-0400 Body mass index (BMI) [Ratio] 29.34 kg/m2 Patrice Envivio 02-02-2021 12:34-0400 Body surface area Derived from formula 1.73 m2 Patrice Envivio 02-02-2021 12:34-0400 Body weight 69.85 kg Patrice Envivio 02-02-2021 12:34-0400 Diastolic blood pressure 66 mm[Hg] Patrice Envivio 02-02-2021 12:34-0400 Heart rate 72 /min Patrice Envivio 02-02-2021 12:34-0400 Systolic blood pressure 142 mm[Hg] Patrice Envivio 10-20-2020 12:15-0400 BMI (Body Mass Index) 29.53 kg/m2 Nupur Loom 10-20-2020 12:15-0400 Body weight 70.31 kg Nupur [employer]oom 10-20-2020 12:15-0400 BP Diastolic 66 mm[Hg] [facility] 10-20-2020 12:15-0400 BP Systolic 130 mm[Hg] [facility] 10-20-2020 12:15-0400 BSA (Body Surface Area) 1.74 m2 [facility] 10-20-2020 12:15-0400 Height 154.31 cm [facility] 10-20-2020 12:15-0400 Pulse (Heart Rate) 72 /min Nupur [employer] 07-21-2020 12:13-0500 BMI (Body Mass Index) 28.96 kg/m2 Nupur [employer] 07-21-2020 12:13-0500 Body weight 68.95 kg Nupur [employer] 07-21-2020 12:13-0500 BP Diastolic 70 mm[Hg] [employer] 07-21-2020 12:13-0500 BP Systolic 152 mm[Hg] [facility] 07-21-2020 12:13-0500 BSA (Body Surface Area) 1.72 m2 [employer] 07-21-2020 12:13-0500 Height 154.31 cm [facility] 07-21-2020 12:13-0500 Pulse (Heart Rate) 74 /min Nupur [employer] 04-14-2020 16:25-0400 BMI (Body Mass Index) 29 kg/m2 Nupur [employer] 04-14-2020 16:25-0400 Body weight 69.63 kg [facility] 04-14-2020 16:25-0400 BP Diastolic 79 mm[Hg] [employer] 04-14-2020 16:25-0400 BP Systolic 151 mm[Hg] [employer] 04-14-2020 16:25-0400 BSA (Body Surface Area) 1.73 m2 Nupur Lacey [employer] 04-14-2020 16:250400 Height 154.94 cm Nupur Lacey SantosViverae 04-14-2020 16:25-0400 Pulse (Heart Rate) 76 /min Nupur Deepthi [employer] [facility] 01-14-2020 15:09-0400 BMI (Body Mass Index) 30.14 kg/m2 Patrice Envivio 01-14-2020 15:09-0400 Body Temperature 98 [degF] [facility] [employer] 01-14-2020 15:09-0400 Body weight 72.35 kg Patrice Envivio 01-14-2020 15:09-0400 BP Diastolic 76 mm[Hg] Patrice Envivio 01-14-2020 15:09-0400 BP Systolic 124 mm[Hg] Patrice AcuspherencViverae 01-14-2020 15:09-0400 BSA (Body Surface Area) 1.76 m2 Patrice Envivio 01-14-2020 15:09-0400 Height 154.94 cm Patrice Envivio 01-14-2020 15:09-0400 Pulse (Heart Rate) 72 /min Patrice Acusp[employer]rencCouchCom[employer] 08-21-2019 10:50-0500 BMI (Body Mass Index) 31.18 kg/m2 Nupur Loom 08-21-2019 10:50-0500 Body weight 74.84 kg [facility] 08-21-2019 10:50-0500 BP Diastolic 70 mm[Hg] Nupur [employer]oom 08-21-2019 10:50-0500 BP Systolic 160 mm[Hg] [employer] 08-21-2019 10:50-0500 BSA (Body Surface Area) 1.79 m2 [employer] 08-21-2019 10:50-0500 Height 154.94 cm [employer] 08-21-2019 10:50-0500 Pulse (Heart Rate) 80 /min [employer] 05-22-2019 10:37-0500 BMI (Body Mass Index) 30.48 kg/m2 [employer] 05-22-2019 10:37-0500 Body weight 73.17 kg [facility] 05-22-2019 10:37-0500 BP Diastolic 68 mm[Hg] [employer] 05-22-2019 10:37-0500 BP Systolic 110 mm[Hg] [employer] 05-22-2019 10:37-0500 BSA (Body Surface Area) 1.77 m2 [employer] 05-22-2019 10:37-0500 Height 154.94 cm [employer] 05-22-2019 10:37-0500 Pulse (Heart Rate) 70 /min [employer] 02-12-2019 10:07-0400 BMI (Body Mass Index) 30.42 kg/m2 Nupur Lacey [employer] 02-12-2019 10:07040 Body weight 73.03 kg Nupur Lacey [employer] 02-12-2019 10:07-0400 BP Diastolic 64 mm[Hg] [employer] 02-12-2019 10:07-0400 BP Systolic 138 mm[Hg] [facility] 02-12-2019 10:070400 BSA (Body Surface Area) 1.77 m2 [employer] 02-12-2019 10:07040 Height 154.94 cm [facility] 02-12-2019 10:07-0400 Pulse (Heart Rate) 78 /min NupurChemoCentryxsarah SantosC[employer] 11-28-2018 10:21-0400 BMI (Body Mass Index) 30.48 kg/m2 [facility] 11-28-2018 10:-0400 Body weight 73.17 kg [facility] 11-28-2018 10:21-0400 BP Diastolic 74 mm[Hg] [employer] 11-28-2018 10:21-0400 BP Systolic 122 mm[Hg] [employer] 11-28-2018 10:21-0400 BSA (Body Surface Area) 1.77 m2 [employer] 11-28-2018 10:21-0400 Height 154.94 cm Nupurmary anne [employer] 11-28-2018 10:21-0400 Pulse (Heart Rate) 80 /min Nupur [employer] 08-29-2018 10:16-0500 BMI (Body Mass Index) 30.23 kg/m2 [employer] 08-29-2018 10:16-0500 Body weight 72.58 kg [employer] 08-29-2018 10:16-0500 BP Diastolic 60 mm[Hg] [employer] 08-29-2018 10:16-0500 BP Systolic 132 mm[Hg] [employer] 08-29-2018 10:16-0500 BSA (Body Surface Area) 1.77 m2 [employer] 08-29-2018 10:16-0500 Height 154.94 cm [employer] 08-29-2018 10:16-0500 Pulse (Heart Rate) 80 /min Nupurmary anne [employer] 05-30-2018 11:52-0500 BMI (Body Mass Index) 31.02 kg/m2 [employer] 05-30-2018 11:52-0500 Body weight 73.26 kg [employer] 05-30-2018 11:52-0500 BP Diastolic 72 mm[Hg] [employer] 05-30-2018 11:52-0500 BP Systolic 144 mm[Hg] [facility] 05-30-2018 11:52-0500 BSA (Body Surface Area) 1.77 m2 [employer] 05-30-2018 11:52-0500 Height 153.67 cm [employer] 05-30-2018 11:52-0500 Pulse (Heart Rate) 68 /min [employer] 02-28-2018 11:42-0400 BMI (Body Mass Index) 31.89 kg/m2 [employer] 02-28-2018 11:42-0400 Body weight 75.3 kg [employer] 02-28-2018 11:42-0400 BP Diastolic 76 mm[Hg] [employer] 02-28-2018 11:42-0400 BP Systolic 134 mm[Hg] [employer] 02-28-2018 11:42-0400 BSA (Body Surface Area) 1.79 m2 [employer] 02-28-2018 11:42-0400 Height 153.67 cm [employer] 02-28-2018 11:42-0400 Pulse (Heart Rate) 80 /min [employer] 11-29-2017 11:28-0400 BP Diastolic 74 mm[Hg] [employer] 11-29-2017 11:28-0400 BP Systolic 132 mm[Hg] Nupurmary anne [employer] 11-29-2017 11:28-0400 Pulse (Heart Rate) 84 /min Nupur [employer] 08-30-2017 10:29-0500 BMI (Body Mass Index) 31.69 kg/m2 [employer] 08-30-2017 10:290500 Body weight 74.84 kg [employer] 08-30-2017 10:29-0500 BP Diastolic 62 mm[Hg] [employer] 08-30-2017 10:29-0500 BP Systolic 136 mm[Hg] [employer] 08-30-2017 10:290500 BSA (Body Surface Area) 1.79 m2 [employer] 08-30-2017 10:290500 Height 153.67 cm [facility] 08-30-2017 10:29-0500 Pulse (Heart Rate) 78 /min Nupurmary anne [employer] 05-29-2017 10:19-0500 BMI (Body Mass Index) 31.24 kg/m2 [employer] 05-29-2017 10:190500 Body weight 74.39 kg [employer] 05-29-2017 10:19-0500 BP Diastolic 72 mm[Hg] [employer] 05-29-2017 10:19-0500 BP Systolic 138 mm[Hg] Nupur Deepthi [employer] 05-29-2017 10:0500 BSA (Body Surface Area) 1.79 m2 Nupur Lacey [employer] 05-29-2017 10:050 Height 154.31 cm [facility] 05-29-2017 10:190500 Pulse (Heart Rate) 86 /min Nupurmary anne [employer] 03-01-2017 10:130400 BMI (Body Mass Index) 31.15 kg/m2 [facility] 03-01-2017 10:130400 Body weight 74.16 kg [facility] 03-01-2017 10:13-0400 BP Diastolic 74 mm[Hg] [facility] 03-01-2017 10:13-0400 BP Systolic 146 mm[Hg] [employer] 03-01-2017 10:130400 BSA (Body Surface Area) 1.78 m2 [facility] 03-01-2017 10:130400 Height 154.31 cm [employer] 03-01-2017 10:130400 Pulse (Heart Rate) 72 /min Nupurmary anne [employer] 11-16-2016 11:18-0400 BP Diastolic 76 mm[Hg] [employer] 11-16-2016 11:18-0400 BP Systolic 142 mm[Hg] Nupur [facility]oom 11-16-2016 10:17-0400 BMI (Body Mass Index) 31.15 kg/m2 Nupur RosenCrowdasaurus 11-16-2016 10:17-0400 Body weight 74.16 kg Nupur Loom 11-16-2016 10:17-0400 BP Diastolic 72 mm[Hg] [employer] 11-16-2016 10:17-0400 BP Systolic 152 mm[Hg] [employer] 11-16-2016 10:17-0400 BSA (Body Surface Area) 1.78 m2 [employer] 11-16-2016 10:17-0400 Height 154.31 cm [facility] 11-16-2016 10:17-0400 Pulse (Heart Rate) 72 /min [facility] [employer] 08-17-2016 11:49-0500 BMI (Body Mass Index) 30.84 kg/m2 [employer] 08-17-2016 11:49-0500 Body weight 74.53 kg [employer] 08-17-2016 11:49-0500 BP Diastolic 60 mm[Hg] [employer] 08-17-2016 11:49-0500 BP Systolic 128 mm[Hg] [employer] 08-17-2016 11:49-0500 BSA (Body Surface Area) 1.79 m2 [employer] 08-17-2016 11:49-0500 Height 155.45 cm Nupurmary anne Lacey [employer] 08-17-2016 11:49-0500 Pulse (Heart Rate) 70 /min Nupur [employer] 05-11-2016 11:22-0400 BMI (Body Mass Index) 30.3 kg/m2 Nupur Loom 05-11-2016 11:22-0400 Body weight 73.94 kg [facility] 05-11-2016 11:22-0400 BP Diastolic 70 mm[Hg] [employer] 05-11-2016 11:22-0400 BP Systolic 144 mm[Hg] [employer] 05-11-2016 11:22-0400 BSA (Body Surface Area) 1.79 m2 [employer] 05-11-2016 11:22-0400 Height 156.21 cm [facility] 05-11-2016 11:22-0400 Pulse (Heart Rate) 68 /min Nupurmary anne [employer] 02-10-2016 10:38-0400 BMI (Body Mass Index) 29.18 kg/m2 [employer] 02-10-2016 10:38-0400 Body weight 71.22 kg NupurPycno 02-10-2016 10:38-0400 BP Diastolic 70 mm[Hg] [employer] 02-10-2016 10:38-0400 BP Systolic 140 mm[Hg] [employer] 02-10-2016 10:38-0400 BSA (Body Surface Area) 1.76 m2 [employer] 02-10-2016 10:38-0400 Height 156.21 cm [employer] 02-10-2016 10:38-0400 Pulse (Heart Rate) 78 /min [employer] 11-11-2015 10:40-0400 BMI (Body Mass Index) 29.74 kg/m2 [employer] 11-11-2015 10:40-0400 Body weight 72.58 kg [employer] 11-11-2015 10:40-0400 BP Diastolic 70 mm[Hg] [employer] 11-11-2015 10:40-0400 BP Systolic 120 mm[Hg] [employer] 11-11-2015 10:40-0400 BSA (Body Surface Area) 1.77 m2 [employer] 11-11-2015 10:40-0400 Height 156.21 cm [employer] 11-11-2015 10:40-0400 Pulse (Heart Rate) 80 /min [employer] 08-05-2015 10:31-0500 BMI (Body Mass Index) 30.17 kg/m2 [employer] 08-05-2015 10:31-0500 Body weight 73.03 kg Nupur Lacey [employer] 08-05-2015 10:31-0500 BP Diastolic 74 mm[Hg] Nupur Lacey [employer] 08-05-2015 10:31-0500 BP Systolic 124 mm[Hg] Nupur Loom 08-05-2015 10:31-0500 BSA (Body Surface Area) 1.78 m2 [employer] 08-05-2015 10:31-0500 Height 155.57 cm [employer] 08-05-2015 10:31-0500 Pulse (Heart Rate) 72 /min Nupur Atomic Mogulssarah Santos [facility] [employer] 04-22-2015 10:38-0400 BMI (Body Mass Index) 29.72 kg/m2 Nupur EdaincViverae 04-22-2015 10:38-0400 Body weight 73.71 kg [facility] 04-22-2015 10:38-0400 BP Diastolic 72 mm[Hg] [employer] 04-22-2015 10:38-0400 BP Systolic 156 mm[Hg] [employer] 04-22-2015 10:38-0400 BSA (Body Surface Area) 1.8 m2 [employer] 04-22-2015 10:38-0400 Height 157.48 cm [employer] 04-22-2015 10:38-0400 Pulse (Heart Rate) 80 /min Nupurmary anne [employer] 01-20-2015 10:08-0400 BMI (Body Mass Index) 30.45 kg/m2 Nupur Loom 01-20-2015 10:08-0400 Body weight 75.52 kg Nupur Loom 01-20-2015 10:08-0400 BP Diastolic 66 mm[Hg] [employer] 01-20-2015 10:08-0400 BP Systolic 126 mm[Hg] [facility] 01-20-2015 10:08-0400 BSA (Body Surface Area) 1.82 m2 [employer] 01-20-2015 10:08-0400 Height 157.48 cm [employer] 01-20-2015 10:08-0400 Pulse (Heart Rate) 74 /min Nupur [employer] 09-22-2014 10:42-0400 BMI (Body Mass Index) 32.19 kg/m2 [facility] 09-22-2014 10:42-0400 Body weight 79.83 kg [employer] 09-22-2014 10:42-0400 BP Diastolic 68 mm[Hg] [employer] 09-22-2014 10:42-0400 BP Systolic 124 mm[Hg] [employer] 09-22-2014 10:42-0400 BSA (Body Surface Area) 1.87 m2 Nupur Deepthi [employer] 09-22-2014 10:42-0400 Height 157.48 cm Nupurmary anne Lacey [employer] 09-22-2014 10:42-0400 Pulse (Heart Rate) 74 /min Nupur Deepthi [employer] 06-16-2014 10:46-0500 BMI (Body Mass Index) 31.82 kg/m2 [employer] 06-16-2014 10:46-0500 Body weight 78.93 kg [facility] 06-16-2014 10:46-0500 BP Diastolic 78 mm[Hg] [employer] 06-16-2014 10:46-0500 BP Systolic 150 mm[Hg] [employer] 06-16-2014 10:46-0500 BSA (Body Surface Area) 1.86 m2 [facility] 06-16-2014 10:46-0500 Height 157.48 cm [facility] 06-16-2014 10:46-0500 Pulse (Heart Rate) 84 /min Nupurmary anne [employer] 03-17-2014 11:58-0400 BMI (Body Mass Index) 31.92 kg/m2 [employer] 03-17-2014 11:58-0400 Body weight 79.15 kg [employer] 03-17-2014 11:58-0400 BP Diastolic 66 mm[Hg] Nupur Schworm [employer] 03-17-2014 11:58-0400 BP Systolic 112 mm[Hg] Nupur Lacey [employer] 03-17-2014 11:58-0400 BSA (Body Surface Area) 1.86 m2 [facility] 03-17-2014 11:58-0400 Height 157.48 cm [facility] 03-17-2014 11:58-0400 Pulse (Heart Rate) 76 /min Nupur Lacey [employer] 12-16-2013 12:18-0400 BMI (Body Mass Index) 31.46 kg/m2 [employer] 12-16-2013 12:18-0400 Body weight 78.02 kg Nupur Deepthi [employer] 12-16-2013 12:18-0400 BP Diastolic 86 mm[Hg] Nupur Loom 12-16-2013 12:18-0400 BP Systolic 126 mm[Hg] [facility] 12-16-2013 12:18-0400 BSA (Body Surface Area) 1.85 m2 [facility] 12-16-2013 12:18-0400 Height 157.48 cm [employer] 12-16-2013 12:18-0400 Pulse (Heart Rate) 68 /min [employer] 03-21-2013 10:04-0400 Body weight 77.79 kg [employer] 03-21-2013 10:04-0400 BP Diastolic 70 mm[Hg] Nupurbest Lacey [employer] 03-21-2013 10:04-0400 BP Systolic 150 mm[Hg] Nupurbest Lacey [employer] 03-21-2013 10:04-0400 Pulse (Heart Rate) 84 /min Nupurbest [employer] 11-15-2012 10:18-0400 Body Temperature 97.8 [degF] [employer] 11-15-2012 10:18-0400 Body weight 76.66 kg Nupurmary anne Lacey [employer] 11-15-2012 10:18-0400 BP Diastolic 70 mm[Hg] Nupurbest Lacey [employer] 11-15-2012 10:18-0400 BP Systolic 138 mm[Hg] Nupur Loom 11-15-2012 10:18-0400 Pulse (Heart Rate) 68 /min Nupur [employer] Encounters Encounter Date Encounter Type Care Provider Facility Start: 08-04-2024 Medicare Lab Tato Gill Other [facility] Start: 08-04-2024 Office outpatient vi sit 25 minutes Nupur Wilma Deepthi Other [facility] Start: 07-28-2024 End: 07-28-2024 ambulatory [facility] Work Phone: Start: 07-28-2024 End: 07-28-2024 Patient encounter procedure [facility] Work Phone: Start: 06-30-2024 ambulatory Eyal Sanchez Jr [facility] Start: 05-12-2024 Non-patient / Non-visit [facility] Work Phone: Start: 05-08-2024 End: 05-08-2024 Emergency department patient visit oJsue Montanezamna Facility: Start: 05-04-2024 Medicare Lab Tato Gill Other [facility] Start: 05-04-2024 Office outpatient vi sit 25 minutes Nupur S Schworm Other [facility] Start: 01-31-2024 Medicare Lab Patrice L Schroe clifton Other [facility] Start: 01-31-2024 Office outpatient vi sit 25 minutes Nupur S Schworm Other [facility] Start: 12-12-2023 Patient encounter procedure [facility] Start: 12-10-2023 End: 12-10-2023 ambulatory [facility] Work Phone: Start: 12-10-2023 End: 12-10-2023 Patient encounter procedure [facility] Work Phone: Start: 11-01-2023 Medicare Lab Patrice L Schroe clifton Other [facility] Start: 11-01-2023 Office outpatient vi sit 25 minutes Nupur S Schworm Other [facility] Start: 09-12-2023 Telephone encounter Juanita Campoverde CMA [facility] Start: 09-05-2023 Orders Only Ynes Bermudez RMA [facility] Comment on above: Diarrhea, unspecifie d type; Colon cancer metastasized to liver ([facility]) Start: 09-04-2023 End: 09-04-2023 ambulatory Paulette Voss Facility:[facility] Start: 09-04-2023 End: 09-04-2023 ambulatory DO Paulette Voss Work Phone: [facility] Work Phone: Start: 09-04-2023 End: 09-04-2023 Departed Referred DO Paulette Voss Work Phone: [facility] Start: 08-16-2023 End: 08-17-2023 ambulatory PAULETTE VOSS [facility] Start: 08-15-2023 End: 08-15-2023 ambulatory [facility] Start: 08-02-2023 Medicare Lab Patrice Deluca clifton Other [facility] Start: 08-02-2023 Office outpatient vi sit 25 minutes Nupur S Schworm Other [facility] Start: 06-26-2023 End: 06-26-2023 Patient encounter procedure DO Paulette Voss Work Phone: [facility] Physician [facility] Work Phone: Start: 06-20-2023 End: 06-20-2023 ambulatory Gloria Mooney Other [employer] Other Start: 06-20-2023 Nursing evaluation o f patient and report Gloria Mooney [facility] Start: 06-13-2023 End: 06-13-2023 ambulatory Gloria Mooney Other [employer] Other Start: 06-13-2023 Office outpatient ne w 30 minutes Gloria Mooney [facility] Start: 06-13-2023 End: 06-13-2023 Patient encounter procedure DO Paulette Voss Work Phone: [facility] Physician [facility] Work Phone: Start: 05-02-2023 Medicare Lab Patrice Deluca [place] Other [facility] Start: 05-02-2023 Office outpatient vi sit 25 minutes Nupur S Schworm Other [facility] Start: 02-27-2023 Office Services Bebeto P March and Other [facility] Start: 01-30-2023 Medicare Lab Ptarice L Schroe [place] Other [facility] Start: 01-30-2023 [...] w 30 minutes Bebeto P Ginger Other [facility] Start: 08-02-2022 Medicare Lab Patrice L Schroe [place] Other [facility] Start: 08-02-2022 Office outpatient vi sit 25 minutes Nupur S Schworm Other [facility] Start: 07-10-2022 End: 07-10-2022 [facility] Start: 07-10-2022 End: 07-10-2022 Subsequent hospital visit by physician Eyal Sanchez MD Work Phone: [facility] [place] Start: 05-02-2022 Medicare Lab Patrice L Schroe [place] Other [facility] Start: 05-02-2022 Office outpatient vi sit 25 minutes Nupur S Schworm Other [facility] Start: 01-30-2022 Medicare Lab Patrice L [...] sit 25 minutes Nupur S Schworm Other [facility] Start: 05-02-2021 Medicare Lab Patrice Schwartz Sandrine clifton Other [facility] Start: 05-02-2021 Office outpatient vi sit 25 minutes Nupur S Schworm Other [facility] Start: 02-02-2021 Medicare Lab Patrice Schwartz Sandrine clifton Other [facility] Start: 02-02-2021 Office outpatient vi sit 25 minutes Nupur S Schworm Other [facility] Start: 10-20-2020 Medicare Lab Nupur S Schwor m Other [facility] Start: 10-20-2020 Office outpatient vi sit 25 minutes Nupur S Schworm Other [facility] Start: 08-10-2020 Office Services Luciana carter Other [facility] Start: 07-21-2020 Medicare Lab Nupur S Schwor m Other [facility] Start: 07-21-2020 Office outpatient vi sit 25 minutes Nupur S Schworm Other [facility] Start: 04-14-2020 Medicare Lab Patrice Schwartz Sandrine clifton Other [facility] Start: 04-14-2020 End: 04-14-2020 Office Services Nupur S Schworm Other [facility] Office Start: 04-14-2020 Office outpatient vi sit 25 minutes Nupur S Schworm Other [facility] Office Start: 01-14-2020 Medicare Lab Patrice Deluca clifton Other [facility] Start: 01-14-2020 Office outpatient vi sit 25 minutes Nupur S Schworm Other [facility] Office Start: 10-02-2019 Office Services Lucianachriss carter Other [facility] Office Start: 08-21-2019 Medicare Lab Nupur S Schwor m Other [facility] Start: 08-21-2019 Foot exam performed Lupe gibson Other [facility] Start: 08-21-2019 Office outpatient vi sit 25 minutes Lupe Mccabe Other [facility] Office Start: 05-22-2019 Medicare Lab Nupur S Schwor m Other [facility] Start: 05-22-2019 Office outpatient vi sit 25 minutes Unpur S Schworm Other [facility] Office Start: 02-12-2019 Medicare Lab Nupur S Schwor m Other [facility] Start: 02-12-2019 Office outpatient vi sit 25 minutes Nupur S Schworm Other [facility] Office Start: 11-28-2018 Lab Nupur S Schwor m Other [facility] Office Start: 11-28-2018 Office outpatient vi sit 25 minutes Nupur S Schworm Other [facility] Office Start: 08-29-2018 Office Services Patrice Deluca clifton Other [facility] Office Start: 08-29-2018 Office outpatient vi sit 25 minutes Nupur S Schworm Other [facility] Office Start: 05-30-2018 Office Services Patrice L Funmie clifton Other [facility] Office Start: 05-30-2018 Office outpatient vi sit 15 minutes Nupur S Schworm Other [facility] Office Start: 02-28-2018 Office Services Patrice L Funmie clifton Other [facility] Office Start: 02-28-2018 Office outpatient vi sit 25 minutes Nupur S Schworm Other [facility] Office Start: 11-29-2017 Office outpatient vi sit 25 minutes Nupur S Schworm Other [facility] Office Start: 11-29-2017 Office Services Nupur S Schwor m Other [facility] Office Start: 08-30-2017 Office Services Nupur S Schwor m Other [facility] Office Start: 08-30-2017 Office outpatient vi sit 25 minutes Patrice Suarez Other [facility] Office Start: 05-29-2017 Office Services Nupur S Schwor m Other [facility] Office Start: 05-29-2017 Office outpatient vi sit 25 minutes Patrice L Suarez Other [facility] Office Start: 03-01-2017 Office outpatient vi sit 25 minutes Nupur S Schworm Other [facility] Office Start: 03-01-2017 Lab Nupur S Schwor m Other [facility] Office Start: 11-16-2016 Office outpatient ne w 20 minutes Farhat Nunn Other [facility] Office Start: 11-16-2016 Lab Nupur S Schwor m Other [facility] Office Start: 11-16-2016 Office outpatient vi sit 25 minutes Nupur S Schworm Other [facility] Office Start: 08-17-2016 Lab Patrice L Funmie clifton Other [facility] Office Start: 08-17-2016 End: 08-17-2016 Office Services Nupur S Schworm Other [facility] Office Start: 08-17-2016 Office outpatient vi sit 25 minutes Nupur S Schworm Other [facility] Office Start: 05-11-2016 End: 05-11-2016 Office Services Nupur S Schworm Other [facility] Office Start: 05-11-2016 Office outpatient vi sit 25 minutes Nupur S Schworm Other [facility] Office Start: 02-10-2016 Lab Nupur S Schwor m Other [facility] Office Start: 02-10-2016 Office outpatient vi sit 25 minutes Nupur S Schworm Other [facility] Office Start: 11-11-2015 Lab Nupur S Schwor m Other [facility] Office Start: 11-11-2015 Office outpatient vi sit 25 minutes Nupur S Schworm Other [facility] Office Start: 08-05-2015 Office outpatient vi sit 25 minutes Nupur S Schworm Other [facility] Office Start: 08-05-2015 Office Services Nupur S Schwor m Other [facility] Office Start: 04-22-2015 Lab Nupur S Schwor m Other [facility] Office Start: 04-22-2015 Office outpatient vi sit 25 minutes Nupur S Schworm Other [facility] Office Start: 01-20-2015 Lab Patrice Deluca clifton Other [facility] Office Start: 01-20-2015 Office outpatient vi sit 25 minutes Nupur S Schworm Other [facility] Office Start: 09-22-2014 Foot exam performed Patrice mayers Other [facility] Start: 09-22-2014 Office outpatient vi sit 25 minutes Patrice Suarez Other [facility] Office Start: 09-22-2014 Lab Patrice lazo Other [facility] Start: 06-16-2014 Foot exam performed Patrice L Sc hroeder Other [facility] Start: 03-17-2014 Medicare Lab Patrice Deluca [place] Other [facility] Start: 03-17-2014 Foot exam performed Patrice L Sc hroeder Other [facility] Start: 12-16-2013 Medicare Lab Patrice Deluca [place] Other [facility] Start: 12-16-2013 Foot exam performed Patrice L Sc hroeder Other [facility] Start: 12-02-2013 Medicare Lab Patrice Deluca cl[place] Other [facility] Start: 03-21-2013 End: 03-21-2013 Office Services Patrice Suarez Other [facility] Start: 11-15-2012 End: 11-15-2012 Office Services Patrice Suarez Other [facility] Start: 07-19-2012 Voided Visit Patrice Deluca clifton Other [facility] Start: 07-19-2012 Office Services Patrice Deluca clifton Other [facility] Office Procedures Date Procedure Procedure Detail Performing Clinician Start: 08-04-2024 Glucose measurement, quantitative Tato Bouts Start: 08-04-2024 Hemoglobin A1c measurement Tato Bouts Start: 08-04-2024 Thyroid stimulating hormone measurement Tato Bouts Start: 08-04-2024 Thyroxine measurement B ruce Bouts Start: 08-04-2024 BS-Dip Tato Bout s Start: 05-04-2024 Blood chemistry Tato B outs Start: 05-04-2024 BS-Dip Tato Bout s Start: 05-02-2024 Basic metabolic pane l calcium total Tato Bouts Start: 05-02-2024 Hemoglobin A1c measurement Tato Bouts Start: 05-02-2024 Lipid panel Tato Bout s Start: 01-31-2024 Cortisol measurement Carlita Suarez Start: 01-31-2024 Erythrocyte mean cor puscular volume determination Patrice Suarez Start: 01-31-2024 Glucose measurement, quantitative Patrice Suarez Start: 01-31-2024 Hemoglobin A1c measurement aPtrice Suarez Start: 01-31-2024 BS-Dip Patrice Schr oeder Start: 11-01-2023 Glucose measurement, quantitative Patricesophia Suarez Start: 11-01-2023 Hemoglobin A1c measurement Patricesophia Suarez Start: 11-01-2023 Lipid panel Patrice Schr oeder Start: 11-01-2023 MICROALBUMIN/Urine C reat Ratio Patrice Suarez Start: 11-01-2023 Thyroid stimulating hormone measurement Patrice Suarez Start: 11-01-2023 Thyroxine measurement L wood Suarez Start: 11-01-2023 BS-Dip Patrice Schr oeder Start: 09-04-2023 End: 09-04-2023 Mckayla BEAVER Work Phone: Start: 08-02-2023 Basic metabolic pane l calcium total Patrice Suarez Start: 08-02-2023 Glucose measurement by monitoring device Tato Bouts Start: 08-02-2023 Hemoglobin A1c measurement Patrice Suarez Start: 08-02-2023 MICROALBUMIN/Urine C reat Ratio Patrice Suarez Start: 08-02-2023 Most recent diastoli c blood pressure 80-89 mm hg Tato Bouts Start: 08-02-2023 Most recent systolic blood pres>/equal 140 mm hg Tato Bouts Start: 08-02-2023 Thyroid stimulating hormone measurement Patrice Suarez Start: 08-02-2023 Thyroxine measurement L wood Suarez Start: 08-02-2023 Blood chemistry Patrice S chroeder Start: 08-02-2023 BS-Dip Patrice Schr oeder Start: 05-02-2023 Basic metabolic pane l calcium total Patrice Suarez Start: 05-02-2023 Glucose measurement by monitoring device Tato Bouts Start: 05-02-2023 Hemoglobin A1c measurement Patricesophia Suarez Start: 05-02-2023 Lipid panel Patrice Schr oeder Start: 05-02-2023 MICROALBUMIN/Urine C reat Ratio Patrice Suarez Start: 05-02-2023 Most recent diastoli c blood pressure < 80 mm hg Tato Bouts Start: 05-02-2023 Most recent systolic blood pressure <130 mm hg Tato Bouts Start: 05-02-2023 Blood chemistry Patrice S chroeder Start: 05-02-2023 BS-Dip Patrice Schr oeder Start: 02-27-2023 Evaluation AND/OR adolfo berumen - established patient Start: 02-25-2023 Destruction of lesion of skin Start: 02-25-2023 Docrev cur meds by casper Miles Start: 01-30-2023 Basic metabolic pane l calcium total Patrice Suarez Start: 01-30-2023 Glucose measurement by monitoring device Start: 01-30-2023 Hemoglobin A1c measurement Patrice Suarez Start: 01-30-2023 MICROALBUMIN/Urine C reat Ratio Patrice Suarez Start: 01-30-2023 Most recent diastoli c blood pressure < 80 mm hg Start: 01-30-2023 Most recent systolic blood pressure <130 mm hg Start: 01-30-2023 Blood chemistry Patrice fox Start: 01-30-2023 BS-Dip Patrice Schr lambertder Start: 11-25-2022 Docrev cur meds by casper Tate Ginger Start: 11-15-2022 Adult depression scr eening assessment Ynes Bermudez A Start: 10-31-2022 Basic metabolic pane l calcium total Bebeto [facility] Start: 10-31-2022 Docrev cur meds by casper Miles Start: 10-31-2022 Glucose measurement by monitoring device Patrice Suarez Start: 10-31-2022 Hemoglobin A1c measurement Bebeto Ginger Start: 10-31-2022 Lipid panel Bebeto anderson Start: 10-31-2022 Thyroid stimulating hormone measurement Bebeto Ginger Start: 10-31-2022 Thyroxine measurement Princess klein [facility] Start: 10-31-2022 X-ray of left foot Hieu my Ginger Start: 10-31-2022 Blood chemistry Bebeto Ginger Start: 10-31-2022 BS-Dip Bebeto anderson Start: 09-25-2022 Docrev cur meds by casper Tate Ginger Start: 09-25-2022 X-ray of left foot Hieu my Ginger Start: 09-11-2022 Docrev cur meds by casper Miles Start: 09-11-2022 X-ray of left foot Hieu meeks Ginger Start: 08-02-2022 Alanine aminotransfe rase measurement Patrice Choudharyeder Start: 08-02-2022 Basic metabolic pane l calcium total Patrice Suarez Start: 08-02-2022 Docrev cur meds by [facility] Patrice Suarez Start: 08-02-2022 Hemoglobin A1c measurement Patricesophia ChoudharySuarez Start: 08-02-2022 Lipid panel Patrice Schr oeder [...] 05-21-2022 Diabetic retinal eye exam Ynes Bermudez A Start: 05-02-2022 Basic metabolic pane l calcium total Patrice Suarez Start: 05-02-2022 Docrev cur meds by [facility] clin Patrice Suarez Start: 05-02-2022 Glucose measurement by monitoring device Patrice Suarez Start: 05-02-2022 Hemoglobin A1c measurement Patrice Suarez Start: 05-02-2022 Lipid panel Patrice Schr oeder Start: 05-02-2022 MICROALBUMIN/Urine C reat Ratio Patrice Choudharyeder Start: 05-02-2022 Blood chemistry Patrice S chroeder Start: 05-02-2022 BS-Dip Patrice Schr oeder Start: 01-30-2022 Basic metabolic pane l calcium total Patrice Suarez Start: 01-30-2022 Docrev cur meds by [facility] clin Patricesophia Suarez Start: 01-30-2022 Glucose measurement by monitoring device Patricesophia Suarez Start: 01-30-2022 Hemoglobin A1c measurement Patrice [...] 10-20-2020 Erythrocyte mean cor puscular volume determination Patricesophia ChoudharySuarez Start: 10-20-2020 Glucose measurement by monitoring device Patricesophia ChoudharySuarez Start: 10-20-2020 Thyroid stimulating hormone measurement Patricesophia ChoudharySuarez Start: 10-20-2020 Thyroxine measurement L amnasophia Suarez Start: 10-20-2020 BS-Dip Nupur Schw orm [...] Thyroxine measurement L wood Suarez Start: 04-15-2020 Basic metabolic pane l calcium total Patrice Suarez Start: 04-15-2020 Hemoglobin A1c measurement Patrice Suarez Start: 04-15-2020 Hemoglobin glycosylated a1c Nupur Schworm Start: 04-15-2020 Lipid panel Nuupr Schw orm Start: 04-15-2020 Lipid panel Patrice [...] 01-14-2020 Doc meds verified w/pt or re Patricesophia Suarez Start: 11-20-2019 Assay of thyroid sti [...] 08-29-2018 Glucose measurement by monitoring device Patrice Chouhdaryeder Start: 05-31-2018 Assay of thyroid sti mulating [...] Patrice Suarez Start: 05-31-2018 Thyroxine measurement L ersophia Suarez Start: 05-30-2018 Continuous glucose m onitoring [...] total Nupur Schworm Start: 03-01-2017 Blood chemistry [facility] chroeder Start: 03-01-2017 BS-Dip Nupur Schw orm [...] total Nupur Schworm Start: 08-17-[facility] Start: 08-17-2016 BS-Dip Nupur Schw orm Start: 08-11-2016 Assay of thyroid sti mulating hormone tsh Nupur Schworm Start: 08-11-2016 Assay of thyroxine total Nupur Schworm Start: 08-11-2016 Basic metabolic pane l calcium total Nupur Schworm Start: 08-11-2016 Hemoglobin A1c measurement Patrice Suarez Start: 08-11-2016 Hemoglobin glycosylated a1c Nupur Schworm Start: 08-11-2016 MICROALBUMIN/Urine C reat Ratio Nupur Schworm Start: 08-11-2016 Thyroid stimulating hormone measurement Patricesophia ChoudharySuarez Start: 08-11-2016 Thyroxine measurement L wood Suarez Start: 05-12-2016 Alanine aminotransfe rase measurement Patricesophia ChoudharySuarez Start: 05-12-2016 Glucose measurement, quantitative Patrice Suarez Start: 05-12-2016 Glucose quantitative blood xcpt reagent strip Nupur Schworm Start: 05-12-2016 Hemoglobin A1c measurement Patricesophia Suarez Start: 05-12-2016 Hemoglobin glycosylated a1c Nupur [...] Schworm Start: 11-11-2015 Thyroid stimulating hormone measurement Patricesophia ChoudharySuarez Start: 11-11-2015 Thyroxine measurement L eroy Suarez Start: 11-04-2015 Basic metabolic pane l [...] Start: 07-21-2013 Thyroid stimulating hormone measurement Patrice Choudharyeder Start: 07-21-2013 Total thyroxine measurement Patrice Suarez [...] Start: 03-21-2013 Thyroid stimulating hormone measurement Patrice Choudharyeder Start: 03-21-2013 Total thyroxine measurement Patrice Suarez Start: 03-21-2013 Transferase alanine amino alt sgpt Nupur Lacey Plan of Treatment Date Care Activity Detail Author Start: 09-04-2028 Screening for malign ant neoplasm of colon Colonoscopy [facility] Start: 11-02-2024 Assay of thyroid stimulating hormone tsh TSH [employer] [facility] Start: 11-02-2024 Assay of thyroxine total T4 [employer] [facility] Start: 11-02-2024 Basic metabolic pane l calcium total Chem 8 [employer] Start: 11-02-2024 Hemoglobin glycosyla tereso a1c Hemoglobin A1C [employer] [facility] Start: 11-02-2024 Lipid panel LIPID PROFILE [employer] [facility] Start: 08-15-2024 Adult BMI Screening Adult BMI Screen ing [facility] Start: 08-15-2024 Tobacco Screening Tobacco Screening [facility] Start: 08-04-2024 Assay of thyroid stimulating hormone tsh TSH [employer] [facility] Start: 08-04-2024 Assay of thyroxine total T4 [employer] [facility] Start: 08-04-2024 Continuous glucose monitoring analysis i&r GLUCOSE MONITOR INTERP AND REPORT [employer] [facility] Start: 08-04-2024 Glucose quantitative blood xcpt reagent strip GLUCOSE [employer] [facility] Start: 08-04-2024 Hemoglobin glycosyla tereso a1c Hemoglobin A1C [employer] [facility] Start: 05-04-2024 Continuous glucose monitoring analysis i&r GLUCOSE MONITOR INTERP AND REPORT [employer] Start: 05-02-2024 Basic metabolic pane l calcium total Chem 8 [employer] Start: 05-02-2024 Hemoglobin glycosyla tereso a1c Hemoglobin A1C [employer] [facility] Start: 05-02-2024 Lipid panel LIPID PROFILE [employer] [facility] Start: 01-31-2024 Continuous glucose monitoring analysis i&r GLUCOSE MONITOR INTERP AND REPORT [employer] [facility] Start: 11-16-2023 Depression Screening Depression Scre ening [facility] Start: 11-16-2023 Fall Risk Screening Fall Risk Screen ing [facility] Start: 11-16-2023 Medicare Annual Well ness Visit Medicare Annual Wellness Visit [facility] Start: 11-01-2023 Assay of thyroid stimulating hormone tsh TSH [employer] [facility] Start: 11-01-2023 Assay of thyroxine total T4 [employer] [facility] Start: 11-01-2023 Continuous glucose monitoring analysis i&r GLUCOSE MONITOR INTERP AND REPORT [employer] [facility] Start: 11-01-2023 Glucose quantitative blood xcpt reagent strip GLUCOSE [employer] [facility] Start: 11-01-2023 Hemoglobin glycosyla tereso a1c Hemoglobin A1C [employer] [facility] Start: 11-01-2023 Lipid panel LIPID PROFILE [employer] [facility] Start: 08-02-2023 Assay of thyroid stimulating hormone tsh TSH [employer] [facility] Start: 08-02-2023 Assay of thyroxine total T4 [employer] [facility] Start: 08-02-2023 Basic metabolic pane l calcium total Chem 8 [employer] Start: 08-02-2023 Continuous glucose monitoring analysis i&r GLUCOSE MONITOR INTERP AND REPORT [employer] [facility] Start: 08-02-2023 Hemoglobin glycosyla tereso a1c Hemoglobin A1C [employer] [facility] Start: 05-21-2023 Glaucoma screening Diabetic Op hthalmology Exam [facility] Start: 05-02-2023 Basic metabolic pane l calcium total Chem 8 [employer] Start: 05-02-2023 Continuous glucose monitoring analysis i&r GLUCOSE MONITOR INTERP AND REPORT [employer] Start: 05-02-2023 Hemoglobin glycosyla tereso a1c Hemoglobin A1C [employer] Start: 05-02-2023 Lipid panel LIPID PROFILE [employer] Start: 03-15-2023 Influenza vaccination Influenza Vacc ine [facility] Start: 01-30-2023 Basic metabolic pane l calcium total Chem 8 [employer] Start: 01-30-2023 Continuous glucose monitoring analysis i&r GLUCOSE MONITOR INTERP AND REPORT [employer] Start: 01-30-2023 Hemoglobin glycosyla tereso a1c Hemoglobin A1C [employer] Start: 10-31-2022 Assay of thyroid stimulating hormone tsh TSH [employer] Start: 10-31-2022 Assay of thyroxine total T4 [employer] Start: 10-31-2022 Basic metabolic pane l calcium total Chem 8 [employer] Start: 10-31-2022 Continuous glucose monitoring analysis i&r GLUCOSE MONITOR INTERP AND REPORT [employer] Start: 10-31-2022 Hemoglobin glycosyla tereso a1c Hemoglobin A1C [employer] Start: 10-31-2022 Lipid panel LIPID PROFILE [employer] Start: 10-31-2022 X-ray of left foot [facility] [employer] Start: 08-02-2022 Basic metabolic pane l calcium total Chem 8 [employer] Start: 08-02-2022 Continuous glucose monitoring analysis i&r GLUCOSE MONITOR INTERP AND REPORT [employer] Start: 08-02-2022 Hemoglobin glycosyla tereso a1c Hemoglobin A1C [employer] Start: 08-02-2022 Lipid panel LIPID PROFILE [employer] Start: 08-02-2022 Transferase alanine amino alt sgpt SGPT (ALT) [employer] Start: 07-10-2022 End: 07-10-2022 EYE VITRECTOMY EYE VITRECTOMY Epiretinal membrane (ERM) of right eye 07/10/2022 11:22 AM [facility] Start: 05-02-2022 Continuous glucose monitoring analysis i&r GLUCOSE MONITOR INTERP AND REPORT [employer] [facility] Start: 02-12-2022 Influenza vaccination Flu vaccine (# 1) [facility] Start: 01-30-2022 Basic metabolic pane l calcium total Chem 8 [employer] Start: 01-30-2022 Continuous glucose monitoring analysis i&r GLUCOSE MONITOR INTERP AND REPORT [employer] [facility] Start: 01-30-2022 Hemoglobin glycosyla tereso a1c Hemoglobin A1C [employer] [facility] Start: 01-30-2022 Lipid panel LIPID PROFILE [employer] Start: 10-31-2021 Assay of thyroid stimulating hormone tsh TSH [employer] Start: 10-31-2021 Assay of thyroxine total T4 [employer] Start: 10-31-2021 Basic metabolic pane l calcium total Chem 8 [employer] Start: 10-31-2021 Continuous glucose monitoring analysis i&r GLUCOSE MONITOR INTERP AND REPORT [employer] [facility] Start: 10-31-2021 Hemoglobin glycosyla tereso a1c Hemoglobin A1C [employer] [facility] Start: 08-02-2021 Assay of thyroid stimulating hormone tsh TSH [employer] [facility] Start: 08-02-2021 Assay of thyroxine total T4 [employer] [facility] Start: 08-02-2021 Basic metabolic pane l calcium total Chem 8 [employer] [facility] Start: 08-02-2021 Continuous glucose monitoring analysis i&r GLUCOSE MONITOR INTERP AND REPORT [employer] [facility] Start: 05-05-2021 Assay of thyroid stimulating hormone tsh TSH [employer] [facility] Start: 05-05-2021 Assay of thyroxine total T4 [employer] [facility] Start: 05-05-2021 Basic metabolic pane l calcium total Chem 8 [employer] [facility] Start: 05-05-2021 Hemoglobin glycosyla tereso a1c Hemoglobin A1C [employer] [facility] Start: 02-02-2021 Continuous glucose monitoring analysis i&r GLUCOSE MONITOR INTERP AND REPORT [employer] [facility] Start: 01-19-2021 Basic metabolic pane l calcium total Chem 8 [employer] [facility] Start: 01-19-2021 HbA1c (Bld) [Mass fraction] Hemoglobin A1C [employer] [facility] Start: 01-19-2021 Lipid panel LIPID PROFILE [employer] [facility] Start: 10-20-2020 Continuous glucose monitoring analysis i&r GLUCOSE MONITOR INTERP AND REPORT [employer] Start: 10-20-2020 Glucose [Mass/Vol] GLUCOSE MON ITOR INTERP AND REPORT [employer] Start: 10-20-2020 T4 [Mass/Vol] T4 [employer] Start: 10-20-2020 TSH Qn TSH [employer] Start: 10-19-2020 Glucose quantitative blood xcpt reagent strip GLUCOSE 2 HR Post Prandial [employer] Start: 10-19-2020 HbA1c (Bld) [Mass fraction] Hemoglobin A1C [employer] Start: 07-21-2020 Glucose [Mass/Vol] GLUCOSE MON ITOR INTERP AND REPORT [employer] Start: 07-21-2020 SARS-Kuhn Virus-2 IgG Antibody to [facility] SARS-Kuhn Virus-2 IgG Antibody to BV [employer] Start: 07-16-2020 Basic metabolic pane l calcium total Chem 8 [employer] Start: 07-16-2020 HbA1c (Bld) [Mass fraction] Hemoglobin A1C [employer] Start: 07-16-2020 Lipid panel LIPID PROFILE [employer] Start: 07-16-2020 T4 [Mass/Vol] T4 [employer] Start: 07-16-2020 TSH Qn TSH [employer] Start: 04-15-2020 Basic metabolic pane l calcium total Chem 8 [employer] Start: 04-15-2020 HbA1c (Bld) [Mass fraction] Hemoglobin A1C [employer] Start: 04-15-2020 Lipid panel Lipid profile [employer] Start: 04-14-2020 Urate [Mass/Vol] Uric acid, serum [facility] Start: 11-20-2019 Basic metabolic pane l calcium total Chem 8 [employer] Start: 11-20-2019 HbA1c (Bld) [Mass fraction] Hemoglobin A1C [employer] Start: 11-20-2019 T4 [Mass/Vol] T4 [employer] Start: 11-20-2019 TSH Qn TSH [employer] Start: 08-22-2019 Basic metabolic pane l calcium total Chem 8 [employer] Start: 08-22-2019 HbA1c (Bld) [Mass fraction] Hemoglobin A1C [employer] Start: 08-22-2019 Lipid panel Lipid profile [employer] Start: 05-15-2019 Basic metabolic pane l calcium total Chem 8 [employer] Start: 05-15-2019 HbA1c (Bld) [Mass fraction] Hemoglobin A1C [employer] Start: 02-28-2019 Basic metabolic pane l calcium total [employer] Start: 02-28-2019 HbA1c (Bld) [Mass fraction] Hemoglobin A1C [employer] Start: 02-28-2019 Hemoglobin glycosyla tereso a1c GLYCOSYLATED HEMOGLOBIN TEST [employer] Start: 02-28-2019 Lipid panel [employer] Start: 02-28-2019 T4 [Mass/Vol] T4 [employer] Start: 02-28-2019 TSH Qn TSH [employer] Start: 02-12-2019 Blood count complete automated CBC PLATELET COUNT; AUTOMATED [employer] Start: 02-12-2019 Glucose [Mass/Vol] GLUCOSE MON ITOR INTERP AND REPORT [employer] Start: 05-30-2018 Glucose [Mass/Vol] GLUCOSE MON ITOR INTERP AND REPORT [employer] Start: 1988 Screening for malign ant neoplasm of breast Mammogram [facility] Start: 11-07-1967 Administration of varicella zoster vaccine Zoster (Shingles) Vaccine (1 of 2) [facility] Start: 11-07-1967 DTaP,Tdap and Td Vaccines (1 - Tdap) DTaP,Tdap and Td Vaccines (1 - Tdap) [facility] Start: 11-07-1967 DTaP/Tdap/Td vaccine (1 - Tdap) DTaP/Tdap/Td vaccine (1 - Tdap) [facility] Start: 1966 Adult BMI Follow Up Plan Adult BMI Follow Up Plan [facility] Start: 1966 Diabetic foot examination Diabetic Foot Exam [facility] Start: 05-08-1949 COVID-19 Vaccine (#1) COVID-19 Vacci ne (#1) [facility] Start: 1948 Urine screening for protein Urine Microalbumin [facility] Comprehensive metabo lic 2000 panel - Serum or Plasma [facility] CT Abdomen and Pelvi s WO and W contrast IV [facility] Hemoglobin.gastroint kushal nal [Presence] in Stool [facility] End: 07-10-2022 POC CHEM8 INCLUDES CALC. ANION GAP POC CHEM8 INCLUDES CALC. ANION GAP Point of Care Testing STAT One Time for 1 Occurrences starting 07/10/2022 until 07/10/2022 [facility] Comment on above: One Time for 1 Occur rences starting 07/10/2022 until 07/10/2022 US Gallbladder [facility] Unhealing Lesion on Left leg [employer] [facility] Immunizations Immunization Date Immunization Notes Care Provider Kaila aguilar 05-22-2019 pneumococcal conjuga te vaccine, 13 valent; Translations: [PNEUMOCOCCAL VACC 13 CASSANDRA IM] Nupur Lacey [facility] [employer] 05-22-2019 PCV 13; Translations : [Administration of pneumococcal vaccine] Patrice Suraez [employer] Payers Date Payer Category Payer Self-pay [id number] 2019 Unknown [id number] [facility] INSURANCE [employer] [id number] 2019-Present [phone] [address] [place] [address] [id number] 2013 Medicare MEDICARE MEDICAR E PART A & B [id number] 2013-Present [phone] [address] [place] [address] [id number] 1959 Medicare [id number] 1959 Unknown [id number] 1948 Unknown [id number] 1948 Unknown [id number] 1948 Unknown [id number] 1948 Unknown [id number] 1948 Unknown [id number] 1948 Unknown [id number] Unknown [id number] Unknown [id number] Unknown [id number] Social History Date Type Detail Facility Start: End: 12-10-2023 Never smoker [employer] Start: Caffeine [employer] Start: 07-05-2022 End: 11-15-2022 Tobacco use and exposure Smokeless tobacco non-user [employer]: Start: 07-10-2022 Alcohol intake Lifetime non-drinker (finding) [employer]: Start: 1950 Sex Assigned At Not on file B ON [employer] Phone: Start: 06-25-2022 End: 07-05-2022 Exposure to SARS-CoV-2 (event) Not sure [employer] Phone: Start: 11-16-2021 End: 08-15-2023 Sex Assigned At [employer] Start: 1950 Sex Assigned At Female F [facility] Start: 08-15-2023 Alcohol intake Current non-dr content strategy [facility] Start: 11-16-2021 End: 08-15-2023 History of Social function [facility] Do you belong to any clubs or organizations such as faith groups, unions, fraternal or athletic groups, or school groups? Yes [facility] Are you now , , , , never or living with a partner? [facility] How often to you hav e a drink containing alcohol? Never [facility] How many standard dr inks containing alcohol do you have on a typical day? Patient does not drink [facility] Do you feel stress - tense, restless, nervous, or anxious, or unable to sleep at night because your mind is troubled all the time - these days [OSQ] Not at all [facility] Start: 10-23-2020 Education 12 [facility] Start: 07-28-2024 Sex Female (finding) [facility] NEGATED: Highlighted rowStart: ZOFIAF History of tobacco use Passive smoker [employer] Work Phone: Medical Equipment Procedure Code Equipment Code Equipment Origin al Text Equipment Identifier Dates TEST 3 TIMES BIANCA LY BEFORE & AFTER MEALS AND NEEDED. DX E10.9 TYPE 1 DIABETES INSULIN TREATED PUMP Start: 08-01-2021 End: 08-23-2022 Clinical Notes 09-30-2020 to 05-11-2024 Telephone Encounter - Juanita Campoverde, [facility] - 09/12/2023 9:30 AM ESTTelephone Encounter - Juanita Campoverde, [facility] - 09/12/2023 9:30 AM ESTTelephone Encounter - Juanita Campoverde, [facility] - 09/12/2023 9:30 AM EST Note Date & Type Note Facility 05-11-2024 Note [id number] 05-08-2024 Note Education Materials Dermatology Facial Laceration A facial laceration is a cut (laceration) on the face. It is caused by any injury that cuts or tears the skin or tissues on the face. Facial lacerations can bleed and be painful. You may need medical attention to stop the bleeding, help the wound heal, lower your risk of infection, and prevent scarring. Lacerations usually heal quickly after treatment. What are the causes? This condition may be caused by: ? A motor vehicle crash. ? A sports injury. ? A violent attack. ? A fall. What are the signs or symptoms? Common symptoms of this condition include: ? An obvious cut on the face. ? Bleeding. ? Pain. ? Swelling. ? Bruising. ? A change in the appearance of the face. How is this diagnosed? Your health care provider can diagnose a facial laceration by doing a physical exam and asking how the injury happened. Your health care provider may also check for areas of bleeding, tissue damage, nerve injury, and objects (foreign bodies) in your wound. How is this treated? Treatment for a facial laceration depends on how severe and deep the wound is. It also depends on the risk for infection. First, your health care provider will clean the wound to prevent infection. Then, your health care provider will decide whether to close the wound. This depends on how deep the laceration is and how long ago your injury happened. If there is an increased risk of infection, the wound will not be closed. ? If your wound needs to be closed: ? Your health care provider will use stitches (sutures), skin glue (skin adhesive), or skin adhesive strips to repair the laceration. ? Your health care provider may numb the area around your wound by injecting a numbing medicine in and around your laceration before doing the sutures. ? Torn skin edges or skin may be removed. ? If sutures are used, the laceration may be closed in layers. Absorbable sutures will be used for deep tissues and muscle. Removable sutures will be used to close the skin. ? You may be given: ? Pain medicine. ? A tetanus shot. ? Oral antibiotic medicines. ? Antibiotic ointment. Follow these instructions at home: Wound care Follow instructions from your health care provider about how to take care of your wound. Make sure you: ? Wash your hands with soap and water for at least 20 seconds before and after you change your bandage (dressing). If soap and water are not available, use hand take up supervisor. ? Change your dressing as told by your health care provider. ? Leave sutures, skin adhesive, or adhesive strips in place. These skin closures may need to stay in place for 2 weeks or longer. If adhesive strip edges start to loosen and curl up, you may trim the loose edges. Do not remove adhesive strips completely unless your health care provider tells you to do that. These instructions will vary depending on how the wound was closed. For sutures: ? Keep the wound clean and dry. ? If you were given a dressing, change it at least once a day, or as told by your health care provider. Also change the dressing if it gets wet or dirty. ? Wash the wound with soap and water two times a day, or as told by your health care provider. Rinse off the soap with water. Pat the wound dry with a clean towel. ? After cleaning, apply a thin layer of antibiotic ointment as told by your health care provider. This helps prevent infection and keeps the dressing from sticking to the wound. ? You may shower as usual after the first 24 hours. Do not soak the wound until the sutures are removed. ? Return to have your sutures removed as told by your health care provider. ? Do not wear makeup in the area of the wound until your health care provider has approved. For skin adhesive: ? You may briefly wet your wound in the shower or bath. ? Do not soak or scrub the wound. ? Do not swim. ? Do not sweat heavily until the skin adhesive has fallen off on its own. ? After showering or bathing, gently pat the wound dry with a clean towel. ? Do not apply liquid medicine, cream medicine, ointment, or makeup to your wound while the skin adhesive is in place. This may loosen the film before your wound is healed. ? If you have a dressing over your wound, be careful not to apply tape directly over the skin adhesive. This may pull off the adhesive before the wound is healed. ? Do not spend a long time in the sun or use a tanning lamp while the skin adhesive is in place. ? The skin adhesive will usually remain in place for 5?10 days and then naturally fall off the skin. Do not pick at the adhesive film. For skin adhesive strips: ? Keep the wound clean and dry. ? Do not let the skin adhesive strips get wet. ? Bathe carefully to keep the wound and adhesive strips dry. If the wound gets wet, pat it dry with a clean towel right away. ? Skin adhesive (more content not included)... 09-12-2023 Miscellaneous Notes Formattin g of this [...] no further questions. [facility] encount er Note ----- Message from Paulette Voss DO sent at 09/10/2023 7:10 AM EST ----- Please let patient know the biopsy was negative. She may follow up p.r.n.. She is 72 and does not need another colonoscopy unless she has problems. Thanks, [facility] [place] [facility]23 Telephone encount er Note Spoke with patient regarding pathology results. Patient verbally understood with no further questions. [facility] Evaluation note Encounter Date Diagnosis Assessment [...] understanding and is agreeable to treatment plan. [employer] Other 11-30-2023 Evaluation note* Encounter Date Diagnosis Assessment Notes Treatment Notes Treatment Clinical Notes May, Type 1 diabetes mellitus without complication (ICD-10 - E10.9) Follows with Endocrinology every [address] [facility]. Last A1c was 6.0. Reports that she [...] has an oming a appointment in July. [employer] Other 12-27-2022 Hospital Discharge instructions* Discharge Instructions* [...] call your doctor documented in this [facility] [employer] Work Phone: [phone]) 199-794503-25-2021 NoteHNO ID: [id number] Author: Farrah Natarajan Service: ? Author Type: Physician Type: Progress [...] hemangioma : Discussed with GI oncology on [facility] and surgical oncology with [...] CYSTIC BERG (more content not included)...[facility]03-19-2021 NoteHNO ID: [id number] Author: Ramon Camp (Tech) Service: ? Author Type: Bone Plant Supervisor Type: Progress Notes Filed: 09/30/2020 11:38 [...] BY: Ramon Camp September 30, 2020 10:22 [facility] Macular pucker, right eye- Primary Macular puckering of retina documented in this encounter [facility] Work Phone: evaluation noteNo assessment information available [facility] Work Phone: Evaluation note* Diagnosis Diarrhea, unspecified type Colon cancer metastasized to liver (CMS-HCC) documented in this encounter [facility] Diagnosis Onset Date Resolution Status Admit Date Decreased appetite acute Januar y 2024 12:58pm Diarrhea acute July 28, 2024 12:58pm History of colon cancer acute J anuary 2024 12:58pm Right upper quadrant abdominal pain acute July 28 12:58pm [facility] Work Phone: History general Narrative - Reported* Type Description Date Medical History Type 1 diabetes Medical History Hypothyroid Medical History Colon CA- 2015 Surgical History Liver resection Surgical History Breast cyst removed- non cancer ous Surgical History x2 [employer] Other InstructionsNot on filedocumented in this encounter [employer] Summary Purpose Family History Relationship Condition Age at Onset Recorded Date/T rosita father Unknown History of malignant neoplasm of prostate Unknown family member Family history of other condition Unknow n Not Specified Unknown Congestive heart failure Unknown Relationship Condition Age at Onset Recorded Date/T rosita father Unknown History of malignant neoplasm of prostate Unknown family member Family history of other condition Unknow n mother Unknown Congestive heart failure Unknown Advance Directives Advance Directive Response Recorded Date/ Time Advance Directives No May 3:39pm Advance Directive Response Recorded Date/ Time Advance Directives No May 4:39pm Chief Complaint and Reason for Visit Chief Complaint Admit Date Amb Documentation May 12, 2024 1 0:11am diarhea July 28, 2024 1 2:58pm Reason for Visit Admit Date Decreased appetite July 28, 2024 1 2:58pm Diarrhea July 28, 2024 1 2:58pm History of colon cancer July 28 12:58pm Right upper quadrant abdominal pain Raymundo elsi 2024 12:58pm Chief Complaint 6 month follow up Additional Source Comments INFORMATION SOURCE (unrecogn ized section and content) DATE CREATED AUTHOR 07/22/2020 [facility] DATE CREATED AUTHOR AUTHOR'S ORGANIZ ATION 09/05/2021 [facility] DATE CREATED AUTHOR AUTHOR'S ORGANIZ ATION 07/10/2022 [facility] DATE CREATED AUTHOR AUTHOR'S ORGANIZ ATION 11/18/2022 [facility] DATE CREATED AUTHOR AUTHOR'S ORGANIZ ATION 08/18/2023 [facility] DATE CREATED AUTHOR AUTHOR'S ORGANIZ ATION 08/18/2023 [facility] DATE CREATED AUTHOR AUTHOR'S ORGANIZ ATION 09/12/2023 [facility] DATE CREATED AUTHOR AUTHOR'S ORGANIZ ATION 05/23/2024 [facility] DATE CREATED AUTHOR AUTHOR'S ORGANIZ ATION 07/07/2024 [facility] Reason for Visit (unrecogniz ed section and content) Specialty Diagnoses / Procedures Referred By Az laurent Referred To Contact Diagnoses Epiretinal membrane (ERM) of right eye EPIRETINAL MEMBRANE RIGHT EYE Procedures [place] OFFICE/OUTPT VISIT,PROCEDURE ONLY [place] COLONOSCOPY FLX DX W/COLLJ SPEC WHEN PFRMD VITRECTOMY 25 GAUAGE, MEMBRANE PEEL Eyal Sanchez MD [address], [address] [place] [address] [facility] [address] [place] [address] Referral ID Status Reason Start Date Expiration Date Visits Re quested Visits Authorized [id number] 1 1 PRN Active and Recently Administ [...] on Sat07/10/22 at 0942, Until 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, Other, safety companion to OR, Pre-op (day of surgery) 1021 [...] Starting on Sat07/10/22 at 0942, Until 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, safety companion to OR, Pre-op (day of surgery) 1021 (Given - Provid er: Puja Colin RN)1027 (Given - Provider: Puja Colin RN)1047 (Given - Provider: Puja Colin RN) phenylephrine (MITALI-SYNEPHRINE) 10 % ophthalmic solution 1 drop (COMPLETED) 1 drop, Right Eye, EVERY 5 MIN PRN, 3 doses, Starting on Sat07/10/22 at 0942, Until 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, safety companion OR 07-10-22, Pre-op (day of surgery) 1022 [...] Care Teams (unrecognized sec tion and content) [employer] Out St[employer]cher Relationship Specialty Start Date End Date Anatoliy Mckeon [address] [place] [address] PCP - General Internal Medicine 07/03/22 Team Status: Inactive Member Role Status Dates Gloria Mooney APRN BOTTLE CAPPER-C Attending Provider Act delisa Start: June 13, 2023 End: June 13, 2023 Team Status: Inactive Member Role Status Dates Gloria Mooney APRN NP-C Attending Provider Act delisa Start: June 26, 2023 End: June 26, 2023 Team Status: Inactive Member Role Status Dates Paulette Voss DO Attending Provider Active Start: September 04, 2023 End: September 04, 2023 Cut Out Stitcher Relationship Specialty Start Date End Date Anatoliy Mckeon MD [address] [place] [address], [address] [place] [address] PCP - General Pediatrics 12/17/16 Cut Out Stitcher Relationship Specialty Start Date End Date Anatoliy Mckeon MD [address] [place] [address], [address] [place] [address] PCP - General Pediatrics 12/17/16 Team Status: Active Member Role Status Dates Gloria Mooney APRN BOTTLE CAPPER-C Primary Care Provider Active Team Status: Inactive Member Role Status Dates Gloria Mooney APRN BOTTLE CAPPER-C Primary Care Provider, Attending Provider Active Start: December 10, 2023 End: December 10, 2023 Team Status: Active Member Role Status Dates Gloria Mooney APRN BOTTLE CAPPER-C Primary Care Provider Active Start: April Wendy Lambert CMA Attending Provider Active Start: May 12, 2024 Team Status: Inactive Member Role Status Dates Gloria Mooney APRN BOTTLE CAPPER-C Primary Care Provider, Attending Provider Active Start: July 28, 2024 End: July 28, 2024 Goals (unrecognized section and content) Goals may [...] BE BASED ON THE PRIMARY CLINICAL RECORDS. [facility] [email or web address] [facility]. provides no warranty or guarantee of the accuracy or completeness of information in this document.
== END 2024-08-05 07:04 | disposition home or self-care (01) ==
LOC: US 07:03
PROVIDERS: PCP Nurse Practitioner Family; Visit Provider Nurse Practitioner Family
DX: R10.11 Right upper quadrant pain (principal); R19.7 Diarrhea, unspecified; Z85.038 Personal history of other malignant neoplasm of large intestine; R63.0 Anorexia; I70.0 Atherosclerosis of aorta
CPT/HCPCS: 74178; 76705; Q9967